=== PATIENT | female | born 1970 ===

== ENCOUNTER 2020-04-10 16:13 | Outpatient (REF) | payer MEDICARE, MEDICAID, SELFPAY ==
--- NOTE | 2020-04-10 | CT_ITS ---
EXAMINATION: CT HEAD WITHOUT CONTRAST CLINICAL INFORMATION: Calvarial lesion. COMPARISON: CT scan of the head 04/21/2007. TECHNIQUE: Contiguous axial imaging was performed from the skull base to vertex without intravenous administration of contrast. This CT examination was performed using dose optimization techniques as appropriate, variously including the following: *Automated exposure control *Adjustment of mA and/or kV according to patient size (this includes techniques or standardized protocols for targeted exams where dose is matched to indication/reason for exam; i.e. extremities or head) *Use of iterative reconstruction technique DLP: 767 mGy-cm FINDINGS: There is a externally convex thickening of the left parietal bone near the vertex. Specifically there is a crescent-shaped heterogeneous osseous matrix visualized between the diploic space and the outer table of the left parietal bone. The size of this finding has remained stable. The calvarium and skull base are otherwise normal. No acute intracranial hemorrhage or abnormal extra-axial collection. No intracranial mass effect or midline shift. Lateral and third ventricles are normal. No hydrocephalus. Rosas-white matter differentiation is grossly preserved and there is no evidence of acute territorial infarct. No mastoid middle ear effusion. No intracranial stenosis. There is however an osteoma visualized within one of the left anterior ethmoid air cells. CT/CT head/brain wo con IMPRESSION: Stable size and appearance of focal thickening of the left parietal bone causing and externally convex contour. 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 Otherwise normal examination.
== END 2020-04-10 16:14 | disposition home or self-care (01) ==
LOC: HO.CT 16:13
PROVIDERS: PCP Nurse Practitioner Family; Visit Provider Nurse Practitioner Family
DX: D16.4 Benign neoplasm of bones of skull and face (principal)
CPT/HCPCS: 70450

== ENCOUNTER → 2020-06-05 12:46 | Outpatient (BNVA) | payer MEDICARE, MEDICAID, SELFPAY | PROVIDERS: PCP Nurse Practitioner Family; Visit Provider Internal Medicine | DX: Z13.89 Encounter for screening for other disorder (principal) | CPT/HCPCS: Q3014 ==

== ENCOUNTER 2020-06-09 11:35 | Emergency (ER) | payer MEDICARE, MEDICAID, SELFPAY ==
[2020-06-09 11:57] VITALS: BP 116/70; PULSE 100; RESP 18; TEMP 37; O2SAT 98; BMI 45.1
--- NOTE | 2020-06-09 12:43 | ED.FALL ---
HPI - Fall General Chief Complaint: Fall Stated Complaint: fell back and neck pain Time Seen by Provider: 06/09/20 12:43 Source: patient Mode of arrival: ambulatory History of Present Illness HPI Narrative: 49-year-old female with a past medical history hypothyroid, vitamin-D deficiency presenting to ED complaining of neck, shoulder, and back pain s/p mechanical fall on Tuesday. Reports walked in house with wet snowy boots and slipped backwards, denies head trauma or LOC. reports pain radiates from low back to head and down left arm with associated left arm tingling. Denies symptoms prior to fall including CP/SOB/lightheadedness/dizziness. Denies vision changes, weakness, urinary incontinence/retention, abdominal pain, nausea/vomiting MD complaint: fall Onset (ago): day(s) Fall from: standing Related Data Home Medications Medication Instructions Recorded Confirmed albuterol sulfate 90 mcg/actuation 0 mcg INHALATION 06/05/20 06/05/20 aerosol inhaler budesonide 90 mcg/actuation breath 0 inh INHALATION 06/05/20 06/05/20 activated powder inhaler bupropion HCl 150 mg 24 hr tablet, 150 mg PO QAM 06/05/20 06/05/20 extended release citalopram 20 mg tablet 20 mg PO DAILY 06/05/20 06/05/20 ipratropium bromide 17 2 puff PO QID 06/05/20 06/05/20 mcg/actuation HFA aerosol inhaler loratadine 10 mg tablet 10 mg PO DAILY 06/05/20 06/05/20 lorazepam 0.5 mg tablet 0.5 mg PO BID PRN 06/05/20 06/05/20 omeprazole 40 mg capsule,delayed 40 mg PO DAILY 06/05/20 06/05/20 release sucralfate 1 gram tablet 1 g PO QID 06/05/20 06/05/20 Previous Rx's Medication Instructions Recorded levothyroxine 75 mcg tablet 75 mcg PO QAM 30 Days #30 tab 06/05/20 acetaminophen [Tylenol Extra 500 mg PO Q6H PRN #20 tab 06/09/20 Strength] cyclobenzaprine 5 mg PO Q8H PRN 5 Days #14 tab 06/09/20 lidocaine [Lidoderm] 1 patch TOPICAL DAILY PRN #30 ea 12/21/20 MDD remove after 12 hours Allergies Allergy/AdvReac Type Severity Reaction Status Date / Time calcium carbonate [From Tums] Allergy Unknown Unknown Verified 06/05/20 15:37 cinnamon [CINNAMON] Allergy Unknown THROAT Verified 06/05/20 15:37 SWELLING fluoxetine [From PROZAC] Allergy Unknown UNKNOWN Verified 06/05/20 15:37 cinnamon Allergy Unknown Unknown Uncoded 06/05/20 15:37 Review of Systems Review of Systems: Constitutional: No Weight loss, No Fever, No Chills, No Night Sweats, No Fatigue, No Malaise Eyes: No Eye Pain, No Vision Changes Cardiovascular: No Chest Pain, No SOB Respiratory: No Cough, No Sputum, No Wheezing, No Smoke Exposure, No Dyspnea Gastrointestinal: No Nausea, No Vomiting, No Abdominal pain Genitourinary: No Urinary Incontinence, no retention Musculoskeletal: + joint pain, + Myalgias, No Joint Swelling Skin: No Skin Lesions, No rash Neuro: No Weakness, No Numbness, + left arm tingling, No Loss of Consciousness, No Dizziness, + Headache Yes all other systems are reviewed and are negative Neurologic: Denies Sensory deficit (Neuro) PENDING SALE TO [facility] Past Medical History Medical History (Updated 06/09/20 @ 12:44 by NADIR Ray) Hypothyroidism Multinodular thyroid Vitamin D deficiency Surgical History (Updated 06/05/20 @ 12:53 by Zamzam Hill MA) Hx of bilateral breast reduction surgery Hx of endoscopy Hx of tooth extraction Family History Family History (Updated 06/05/20 @ 12:55 by Zamzam Hill MA) Father Prostate cancer Hypothyroidism Mother Kidney disease Stroke Social History Social History (Updated 06/05/20 @ 12:51 by Zamzam Hill MA) Smoking Status: Never smoker Advance Directives: No Advance Directives Information Provided: No Physical Exam Vital Signs: Vital Signs: Last Vital Signs Temp 98.6 F 06/09/20 11:57 Pulse 100 06/09/20 11:57 Resp 18 06/09/20 11:57 BP 116/70 06/09/20 11:57 Pulse Ox 98 06/09/20 11:57 Body Mass Index 45.1 Const: General: cooperative and healthy appearing Orientation/consciousness: patient oriented x3 Limitations: no limitations HENMT: Head: Yes normal to inspection Ears: hearing grossly normal bilaterally General nose exam: Normal external nose present Face and sinus: Yes normal facial exam Mouth: Normal oral and palatal mucosa present Throat: Yes posterior oropharynx normal and Yes uvula midline Eyes: General: appearance normal, both eyes and all related structures Pupils: Equal, round and reactive pupils present EOM: EOMs intact bilaterally Neck: Other: No midline cervical spinous tenderness. + left-sided trapezius muscle tenderness Neck: Yes normal visual inspection and Yes no meningeal signs Chest: Chest palpation & inspection: normal inspection of the chest Resp: Effort & Inspection: normal respiratory effort Auscultation: clear to auscultation bilaterally and no wheezes Cardio: Rate: regular rate Heart sounds: S1 normal heart sound present and S2 normal heart sound present GI: Inspection: Yes normal to inspection Palpation (GI): Soft to palpation, nontender, no guarding and not rigid Back/Spine/Pelvis: Other: No midline thoracic/lumbar spinous tenderness. Mild bilateral MSK lumbar tenderness Skin: Rashes: no rashes Wounds: no wounds Neuro: Other: No saddle anesthesia General: patient oriented x3, gait normal, tone normal, moves all extremities, no meningeal signs, no focal motor deficits and CN's II-XI intact bilaterally Cranial nerves: Yes Equal, round and reactive pupils present Gait exam (Neuro): Normal gait present Motor exam (neuro): 5/5 motor strength present throughout Sensory Exam: No Sensory deficit (Neuro) Coordination: [id number] test normal Extrem: General: Yes normal to inspection MDM - Fall MDM Narrative Medical decision making narrative: On exam VSS, NAD/well-appearing, no midline spinous tenderness, no saddle anesthesia or red flag symptoms. Likely MSK pain. Low concern for fracture/dislocation or ICH Discharge Plan Discharge Clinical Impression: Neck pain Back pain Qualifiers: Back pain location: back pain in unspecified location Chronicity: acute Back pain laterality: unspecified Qualified Code(s): M54.9 - Dorsalgia, unspecified Patient Disposition: Home, Self-Care Instructions: Fall Prevention (ED) Additional Instructions: Your pain is likely musculoskeletal Flexeril is a muscle relaxer, take at night as it makes you drowsy, do not drive, drink alcohol, or operate machinery while taking it Naproxen as an anti-inflammatory / pain medication, take with food Lidoderm patches are numbing patches, apply to painful area In addition take Tylenol at home If symptoms persist or worsen, pain becomes unbearable, you developed urinary retention or incontinence, or weakness return to the ED Prescriptions: New acetaminophen [Tylenol Extra Strength] 500 mg tablet 500 mg PO Q6H PRN (Reason: pain or fever) Qty: 20 RF: 0 lidocaine [Lidoderm] 5 % adhesive patch,medicated 1 patch topical DAILY MDD remove after 12 hours PRN (Reason: pain) Qty: 30 RF: 0 cyclobenzaprine 5 mg tablet 5 mg PO Q8H PRN (Reason: pain (scale score 7-10)) 5 Days Qty: 14 RF: 0 No Action citalopram 20 mg tablet 20 mg PO DAILY RF: 0 bupropion HCl 150 mg tablet extended release 24 hr 150 mg PO QAM RF: 0 lorazepam 0.5 mg tablet 0.5 mg PO BID PRNRF: 0 omeprazole 40 mg capsule,delayed release(DR/EC) 40 mg PO DAILY RF: 0 loratadine 10 mg tablet 10 mg PO DAILY RF: 0 sucralfate 1 gram tablet 1 g PO QID RF: 0 Atrovent HFA 17 mcg/actuation HFA aerosol inhaler 2 puff PO QID RF: 0 Pulmicort Flexhaler 90 mcg/actuation aerosol powdr breath activated 0 inh inhalation RF: 0 albuterol sulfate 90 mcg/actuation HFA aerosol inhaler 0 mcg inhalation RF: 0 levothyroxine 75 mcg tablet 75 mcg PO QAM 30 Days Qty: 30 RF: 0 Referrals: Selma Johns NP [Primary Care Provider] - 2 days Interventions: ED Discharge Assessment Last Done: 06/09/20 13:03 Discharge Date/Time: 06/09/20 13:04
== END 2020-06-09 13:04 | disposition home or self-care (01) ==
PROVIDERS: Emergency Provider Emergency Medicine; PCP Nurse Practitioner Family
DX: M54.9 Dorsalgia, unspecified (principal); Z91.81 History of falling
CPT/HCPCS: 99283

== ENCOUNTER 2020-07-07 09:16 | Outpatient (REF) | payer OTHER, SELFPAY ==
--- NOTE | 2020-07-07 09:41 | XR_ITS ---
EXAMINATION: BILATERAL HAND X-RAY CLINICAL INFORMATION: Bilateral hand pain COMPARISON: None TECHNIQUE: 3 views each hand FINDINGS: Bone alignment is normal. No fracture or dislocation is seen. Joint spaces are normal. Soft tissues are normal. XR/XR hand LT min 3V IMPRESSION: Normal hands. EXAMINATION: Left shoulder x-ray CLINICAL INFORMATION: Joint pain COMPARISON: None. TECHNIQUE: 4 views of the left shoulder FINDINGS: Bone alignment is normal. No fracture or dislocation is seen. The joint spaces are normal. There are several small round soft tissue tissue calcifications adjacent to the humeral head probably representing calcific bursitis. IMPRESSION: Soft tissue calcifications probably representing calcific bursitis. Otherwise unremarkable exam.
--- NOTE | 2020-07-07 09:41 | XR_ITS ---
EXAMINATION: BILATERAL HAND X-RAY CLINICAL INFORMATION: Bilateral hand pain COMPARISON: None TECHNIQUE: 3 views each hand FINDINGS: Bone alignment is normal. No fracture or dislocation is seen. Joint spaces are normal. Soft tissues are normal. XR/XR shoulder LT min 2V IMPRESSION: Normal hands. EXAMINATION: Left shoulder x-ray CLINICAL INFORMATION: Joint pain COMPARISON: None. TECHNIQUE: 4 views of the left shoulder FINDINGS: Bone alignment is normal. No fracture or dislocation is seen. The joint spaces are normal. There are several small round soft tissue tissue calcifications adjacent to the humeral head probably representing calcific bursitis. IMPRESSION: Soft tissue calcifications probably representing calcific bursitis. Otherwise unremarkable exam.
--- NOTE | 2020-07-07 09:41 | XR_ITS ---
EXAMINATION: BILATERAL HAND X-RAY CLINICAL INFORMATION: Bilateral hand pain COMPARISON: None TECHNIQUE: 3 views each hand FINDINGS: Bone alignment is normal. No fracture or dislocation is seen. Joint spaces are normal. Soft tissues are normal. XR/XR hand RT min 3V IMPRESSION: Normal hands. EXAMINATION: Left shoulder x-ray CLINICAL INFORMATION: Joint pain COMPARISON: None. TECHNIQUE: 4 views of the left shoulder FINDINGS: Bone alignment is normal. No fracture or dislocation is seen. The joint spaces are normal. There are several small round soft tissue tissue calcifications adjacent to the humeral head probably representing calcific bursitis. IMPRESSION: Soft tissue calcifications probably representing calcific bursitis. Otherwise unremarkable exam.
[2020-07-07 10:45] LABS: Free T4 (Free Thyroxine) 1.21 ng/dL (0.71-1.85); Thyroid Stimulating Hormone 2.17 uIU/mL (0.32-4.0); Vitamin D 25-OH Total 27.1 ng/mL (>30)
== END 2020-07-07 09:17 | disposition home or self-care (01) ==
LOC: HO.LAB 09:16
PROVIDERS: PCP Nurse Practitioner Family; Visit Provider Internal Medicine
DX: E55.9 Vitamin D deficiency, unspecified (principal); E03.9 Hypothyroidism, unspecified; E04.2 Nontoxic multinodular goiter; M25.512 Pain in left shoulder; M25.541 Pain in joints of right hand; M25.542 Pain in joints of left hand
CPT/HCPCS: 36415; 73030; 73130; 82306; 84439; 84443

== ENCOUNTER 2020-07-12 09:02 | Outpatient (REF) | payer OTHER, SELFPAY ==
--- NOTE | 2020-07-12 | MM_ITS ---
EXAMINATION: MM SCREENING DIGITAL BREAST TOMOSYNTHESIS, BILATERAL CLINICAL INFORMATION: Screening. Asymptomatic. The lifetime risk of breast cancer based on the Tyrer-Cuzick Model is 12%. COMPARISON: Mammography: 03/30/2019, 03/29/2018 TECHNIQUE: Digital breast tomosynthesis is performed in both the craniocaudal and mediolateral oblique views along with computer-aided detection (CAD). Synthesized 2D images are generated from the tomosynthesis. FINDINGS: There are scattered areas of fibroglandular density (ACR BI-RADS breast composition Category b). There are scattered fibronodular asymmetries in each breast similar to prior studies. There is no interval mass or architectural abnormality. No abnormal calcifications. The axilla and skin contours are unremarkable. MM/MM tomosynthesis screening BI IMPRESSION: No significant changes from prior exams. ASSESSMENT: BI-RADS 2: Benign RECOMMENDATION: Routine annual mammography screening. This patient's information was entered into a reminder system with a target due date for their next mammogram.
== END 2020-07-12 09:03 | disposition home or self-care (01) ==
LOC: HO.MAMMO 09:02
PROVIDERS: PCP Nurse Practitioner Family; Visit Provider Nurse Practitioner Family
DX: Z12.31 Encounter for screening mammogram for malignant neoplasm of breast (principal)
CPT/HCPCS: 77063; 77067

== ENCOUNTER → 2020-07-28 07:49 | Outpatient (BNVA) | payer OTHER, SELFPAY | PROVIDERS: PCP Nurse Practitioner Family; Visit Provider Internal Medicine | DX: Z76.89 Persons encountering health services in other specified circumstances (principal) | CPT/HCPCS: Q3014 ==

== ENCOUNTER 2020-09-23 18:39 | Emergency (ER) | payer OTHER, SELFPAY ==
--- NOTE | ~2020-09-23 | XR_ITS ---
EXAMINATION: PORTABLE CHEST 1 VIEW CLINICAL INFORMATION: chest pain . COMPARISON: 11/30/2018. TECHNIQUE: Portable frontal view of the chest was obtained. FINDINGS: The lungs are well expanded. No focal infiltrate, effusion, edema, or pneumothorax. Cardiac and mediastinal silhouettes are within normal limits for technique. No acute bony abnormality seen. Degenerative changes in the spine and shoulders. 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 XR/XR chest 1V IMPRESSION: No evidence of acute disease.
[2020-09-23 18:50] VITALS: BP 142/79; BP 185/97; PULSE 108; PULSE 135; RESP 18; TEMP 36.8; O2SAT 98; BMI 46.5
--- NOTE | 2020-09-23 19:01 | ED_ITS ---
HPI - Chest Pain General Chief Complaint: Chest Pain Stated Complaint: LT SIDED CHEST PRESSURE Time Seen by Provider: 09/23/20 20:03 Source: patient Mode of arrival: ambulatory Limitations: no limitations History of Present Illness HPI narrative: Patient presents to ED for left-sided chest pressure and acid burning sensation. Patient has had this before and informed that she has anxiety. Patient denies any drug use, shortness of breath, swelling of lower extremities, or chest pain on inspiration. Patient denies any coughing, fever, chills. Patient presently no longer have chest pain during ED. Related Data Home Medications Medication Instructions Recorded Confirmed albuterol sulfate 90 mcg/actuation 0 mcg INHALATION 06/05/20 07/28/20 aerosol inhaler budesonide 90 mcg/actuation breath 0 inh INHALATION 06/05/20 07/28/20 activated powder inhaler bupropion HCl 150 mg 24 hr tablet, 150 mg PO QAM 06/05/20 07/28/20 extended release ipratropium bromide 17 2 puff PO QID 06/05/20 07/28/20 mcg/actuation HFA aerosol inhaler loratadine 10 mg tablet 10 mg PO DAILY 06/05/20 07/28/20 lorazepam 0.5 mg tablet 0.5 mg PO BID PRN 06/05/20 07/28/20 omeprazole 40 mg capsule,delayed 40 mg PO DAILY 06/05/20 07/28/20 release sucralfate 1 gram tablet 1 g PO QID 06/05/20 07/28/20 citalopram 10 mg tablet 10 mg PO DAILY 07/28/20 07/28/20 citalopram 20 mg tablet 30 mg PO DAILY tab 07/28/20 07/28/20 Previous Rx's Medication Instructions Recorded acetaminophen [Tylenol Extra 500 mg PO Q6H PRN #20 tab 06/09/20 Strength] cyclobenzaprine 5 mg PO Q8H PRN 5 Days #14 tab 06/09/20 lidocaine [Lidoderm] 1 patch TOPICAL DAILY PRN #30 ea 06/09/20 MDD remove after 12 hours cholecalciferol (vitamin D3) 50 50 mcg PO DAILY 30 Days #30 cap 07/28/20 mcg (2,000 unit) capsule levothyroxine 75 mcg tablet 75 mcg PO QAM #30 tab 07/28/20 Allergies Allergy/AdvReac Type Severity Reaction Status Date / Time calcium carbonate [From Tums] Allergy Unknown Unknown Verified 09/23/20 18:56 cinnamon [CINNAMON] Allergy Unknown THROAT Verified 09/23/20 18:56 SWELLING fluoxetine [From PROZAC] Allergy Unknown UNKNOWN Verified 09/23/20 18:56 cinnamon Allergy Unknown Unknown Uncoded 07/28/20 08:02 Review of Systems Review of Systems: Yes all other systems are reviewed and are negative Constitutional: Constitutional: Reports as per HPI and Reports no additional constitutional complaints Eyes: Eyes: Reports as per HPI and Reports no additional eye complaints ENT: Reports system reviewed and no additional complaints, except as documented and Reports as per HPI Cardiovascular: Cardiovascular: Reports as per HPI and Reports no additional cardiovascular complaints Respiratory: Respiratory: Reports as per HPI and Reports no additional respiratory complaints Gastrointestinal: Gastrointestinal: Reports as per HPI and Reports no additional gastrointestinal complaints Musculoskeletal: Musculoskeletal: Reports no additional musculoskeletal complaints and Reports as per HPI Neurologic: Reports system reviewed and no additional complaints, except as documented and Reports as per HPI Psychiatric: Psychiatric: Reports no additional psychiatric complaints and Reports as per HPI PMFSH Past Medical History Medical History Hypothyroidism Multinodular thyroid Vitamin D deficiency Surgical History Hx of bilateral breast reduction surgery Hx of endoscopy Hx of tooth extraction Family History Family History Father Prostate cancer Hypothyroidism Mother Kidney disease Stroke Social History Social History Smoking Status: Never smoker Use of substances other than those prescribed or required for medical reasons: No Advance Directives: No Advance Directives Information Provided: Yes Physical Exam Vital Signs: Vital Signs: Last Vital Signs Temp 98.2 F 09/23/20 21:59 Pulse 85 09/23/20 21:59 Resp 18 09/23/20 21:59 BP 107/66 09/23/20 21:59 Pulse Ox 97 09/23/20 21:59 Body Mass Index 46.5 Const: General: cooperative, healthy appearing, comfortable, no acute distr ess, well developed, alert, awake and Physically active Orientation/consciousness: patient oriented x3 HENMT: Head: Yes normal to inspection, Yes No palpable skull fracture present, Yes normocephalic, Yes atraumatic, No Fontenot's sign, No contusion, No cranial bruits, No hematoma, No laceration, No occipital foramen tenderness, No palpable skull fracture, No raccoon eyes, No scalp lesion, No scalp tenderness, No Temporal artery tenderness present and No periorbital ecchymosis Eyes: General: appearance normal, both eyes and all related structures Neck: Neck: Yes normal visual inspection, Yes full ROM, Yes no lymphadenopathy, Yes no meningeal signs, Yes trachea midline, Yes supple and No tender Chest: Other: Negative for rash Chest palpation & inspection: normal inspection of the chest and normal palpation of entire chest wall Resp: Effort & Inspection: normal respiratory effort and able to speak in complete sentences Auscultation: clear to auscultation bilaterally Cardio: Jugular venous distension: no JVD Heart sounds: S1 normal heart sound present and S2 normal heart sound present GI: Inspection: Yes normal to inspection and No abdominal wall ecchymosis Palpation (GI): Soft to palpation, not firm, nontender, no guarding and not rigid : General: No CVA tenderness and Yes no CVA tenderness Back/Spine/Pelvis: Back: no CVA tenderness, No CVA tenderness and No back tenderness Skin: General skin exam: no rashes or lesions noted and elasticity normal Neuro: General: patient oriented x3, no meningeal signs and CN's II-XI intact bilaterally Cranial nerves: Yes CN's II-XII intact bilaterally Extrem: Other: Lower extremities negative for swelling, pitting edema, calf tenderness General: Yes normal to inspection and Yes full ROM Psych: Appearance: grossly normal, well kempt and not disheveled Course Course Course Narrative: Patient will have EKG and clinical evaluation. Reevaluation(s) Reevaluation #1: Patient's troponins are negative. Patient's D-dimer negative. Perc score 1. Chest x-ray normal. COVID swab negative. Patient not in any distress. Patient inedform to follow-up with her PCP for chest pain or further evaluation. Presently patient is not having OH or PE. Heart Score 2 MDM - Chest Pain MDM Narrative Medical decision making narrative: Chest pain Lab Data Result diagrams: 09/23/20 19:28 09/23/20 20:14 Labs: Lab Results 09/23/20 09/23/20 09/23/20 Range/Units 19:28 19:28 19:28 WBC 12.6 H (4.8-10.8) X10*3/uL RBC 4.62 (4.20-5.50) X10*6/uL Hgb 12.8 (12.0-16.0) g/dl Hct 39.8 (37-47) % MCV 86.1 (80-98) fL MCH 27.7 (27.0-33.0) pg MCHC 32.2 (31.0-35.0) g/dl RDW 13.0 (11.0-16.0) % Plt Count 301 (160-400) X10*3/uL MPV 10.5 (9.4-12.3) fL Immature Gran % (Auto) 0.6 H (0.0-0.4) % Neut % (Auto) 86.8 H (45-73) % Lymph % (Auto) 9.5 L (20-40) % [place] % (Auto) 2.9 (2-11) % Eos % (Auto) 0.0 (0-4) % Baso % (Auto) 0.2 (0-2) % Lymph # (Auto) 1.2 (1.2-4.9) X10*3/uL [place] # (Auto) 0.4 (0.1-1.2) X10*3/uL Eos # (Auto) 0.0 (0.0-0.4) X10*3/uL Baso # (Auto) 0.0 (0.0-0.2) X10*3/uL Abs Immat Gran (auto) 0.07 H (0.00-0.03) X10*3/uL Absolute Neuts (auto) 10.9 H (2.0-8.3) X10*3/uL Absolute Nucleated RBC 0.020 H (0.0-0.012) X10*3/uL Nucleated RBC % (auto) 0.2 (0.0-0.2) /100WBC Smear Tech's Comments VERIFIED PT (10.8-13.0) SEC INR (0.9-1.1) APTT (24.1-38.0) SEC D-Dimer NG/ML Sodium (135-145) mmol/L Potassium (3.3-5.1) mmol/L Chloride (96-108) mmol/L Carbon Dioxide (22-29) mmol/L Anion Gap (12-20) BUN (9-16) mg/dL Creatinine (0.5-1.4) mg/dL Estim Creat Clear Calc Estimated GFR Random Glucose (60-115) mg/dL Calcium (8.4-10.2) mg/dL Total Bilirubin (0.0-1.0) mg/dL AST (5-31) U/L ALT (0-31) U/L Alkaline Phosphatase (39-117) U/L Troponin I High Sens < 3.5 (<3.5-17.0) ng/L Total Protein (6.5-8.0) g/dL Albumin (3.5-5.0) g/dL Beta HCG, Quant mIU/mL Urine Color Urine Appearance Urine pH (5.0-8.0) Ur Specific [place] (1.005-1.025) Urine Protein (NEG-TRACE) MG/DL Urine Glucose (UA) (NEG) MG/DL Urine Ketones (NEG) MG/DL Urine Blood (NEG) Urine Nitrite (NEG) Ur Leukocyte Esterase (NEG) Urine RBC (0) /HPF Urine WBC (0-4) /HPF Ur Squamous Epith Cells /LPF Urine Bacteria /LPF COVID-19 (PADMINI) Negative (Negative) COVID-19 Clin Com See Note 09/23/20 09/23/20 09/23/20 Range/Units 19:38 20:14 20:14 WBC (4.8-10.8) X10*3/uL RBC (4.20-5.50) X10*6/uL Hgb (12.0-16.0) g/dl Hct (37-47) % MCV (80-98) fL MCH (27.0-33.0) pg MCHC (31.0-35.0) g/dl RDW (11.0-16.0) % Plt Count (160-400) X10*3/uL MPV (9.4-12.3) fL Immature Gran % (Auto) (0.0-0.4) % Neut % (Auto) (45-73) % Lymph % (Auto) (20-40) % [place] % (Auto) (2-11) % Eos % (Auto) (0-4) % Baso % (Auto) (0-2) % Lymph # (Auto) (1.2-4.9) X10*3/uL [place] # (Auto) (0.1-1.2) X10*3/uL Eos # (Auto) (0.0-0.4) X10*3/uL Baso # (Auto) (0.0-0.2) X10*3/uL Abs Immat Gran (auto) (0.00-0.03) X10*3/uL Absolute Neuts (auto) (2.0-8.3) X10*3/uL Absolute Nucleated RBC (0.0-0.012) X10*3/uL Nucleated RBC % (auto) (0.0-0.2) /100WBC Smear Tech's Comments PT 13.0 (10.8-13.0) SEC INR 1.1 (0.9-1.1) APTT 30.6 (24.1-38.0) SEC D-Dimer < 200 NG/ML Sodium 136 (135-145) mmol/L Potassium 4.9 (3.3-5.1) mmol/L Chloride 100 (96-108) mmol/L Carbon Dioxide 28 (22-29) mmol/L Anion Gap 13 (12-20) BUN 20 H (9-16) mg/dL Creatinine 0.86 (0.5-1.4) mg/dL Estim Creat Clear Calc 92.6 Estimated GFR > 60 Random Glucose 146 H (60-115) mg/dL Calcium 9.1 (8.4-10.2) mg/dL Total Bilirubin 0.4 (0.0-1.0) mg/dL AST 14 (5-31) U/L ALT 16 (0-31) U/L Alkaline Phosphatase 82 (39-117) U/L Troponin I High Sens (<3.5-17.0) ng/L Total Protein 7.5 (6.5-8.0) g/dL Albumin 3.9 (3.5-5.0) g/dL Beta HCG, Quant < 2 mIU/mL Urine Color YELLOW Urine Appearance CLEAR Urine pH 5.5 (5.0-8.0) Ur Specific [place] 1.015 (1.005-1.025) Urine Protein NEG (NEG-TRACE) MG/DL Urine Glucose (UA) NEG (NEG) MG/DL Urine Ketones NEG (NEG) MG/DL Urine Blood 2+ H (NEG) Urine Nitrite NEG (NEG) Ur Leukocyte Esterase NEG (NEG) Urine RBC 1-4 (0) /HPF Urine WBC 0-2 (0-4) /HPF Ur Squamous Epith Cells 1+ /LPF Urine Bacteria 1+ /LPF COVID-19 (PADMINI) (Negative) COVID-19 Clin Com 09/23/20 Range/Units 23:36 WBC (4.8-10.8) X10*3/uL RBC (4.20-5.50) X10*6/uL Hgb (12.0-16.0) g/dl Hct (37-47) % MCV (80-98) fL MCH (27.0-33.0) pg MCHC (31.0-35.0) g/dl RDW (11.0-16.0) % Plt Count (160-400) X10*3/uL MPV (9.4-12.3) fL Immature Gran % (Auto) (0.0-0.4) % Neut % (Auto) (45-73) % Lymph % (Auto) (20-40) % [place] % (Auto) (2-11) % Eos % (Auto) (0-4) % Baso % (Auto) (0-2) % Lymph # (Auto) (1.2-4.9) X10*3/uL [place] # (Auto) (0.1-1.2) X10*3/uL Eos # (Auto) (0.0-0.4) X10*3/uL Baso # (Auto) (0.0-0.2) X10*3/uL Abs Immat Gran (auto) (0.00-0.03) X10*3/uL Absolute Neuts (auto) (2.0-8.3) X10*3/uL Absolute Nucleated RBC (0.0-0.012) X10*3/uL Nucleated RBC % (auto) (0.0-0.2) /100WBC Smear Tech's Comments PT (10.8-13.0) SEC INR (0.9-1.1) APTT (24.1-38.0) SEC D-Dimer NG/ML Sodium (135-145) mmol/L Potassium (3.3-5.1) mmol/L Chloride (96-108) mmol/L Carbon Dioxide (22-29) mmol/L Anion Gap (12-20) BUN (9-16) mg/dL Creatinine (0.5-1.4) mg/dL Estim Creat Clear Calc Estimated GFR Random Glucose (60-115) mg/dL Calcium (8.4-10.2) mg/dL Total Bilirubin (0.0-1.0) mg/dL AST (5-31) U/L ALT (0-31) U/L Alkaline Phosphatase (39-117) U/L Troponin I High Sens < 3.5 (<3.5-17.0) ng/L Total Protein (6.5-8.0) g/dL Albumin (3.5-5.0) g/dL Beta HCG, Quant mIU/mL Urine Color Urine Appearance Urine pH (5.0-8.0) Ur Specific [place] (1.005-1.025) Urine Protein (NEG-TRACE) MG/DL Urine Glucose (UA) (NEG) MG/DL Urine Ketones (NEG) MG/DL Urine Blood (NEG) Urine Nitrite (NEG) Ur Leukocyte Esterase (NEG) Urine RBC (0) /HPF Urine WBC (0-4) /HPF Ur Squamous Epith Cells /LPF Urine Bacteria /LPF COVID-19 (PADMINI) (Negative) COVID-19 Clin Com ECG Data ECG #1: Interpretation: Sinus tachycardia. Ventricular rate 112. Appearance of 130. QRS 78. QTC 453. Negative STEMI Discharge Plan Discharge Clinical Impression: Atypical chest pain Patient Disposition: Home, Self-Care Instructions: Chest Pain (ED) Additional Instructions: Return to the ED immediately for worsening chest pain, shortness of breath, swelling of lower extremities, coughing up blood, fever, chills, any other concerning symptoms. Troponins were negative. D-dimer negative. COVID swab came back negative. Chest x-ray negative for pneumonia. EKG negative for STEMI. Please follow-up with PCP Prescriptions: No Action acetaminophen [Tylenol Extra Strength] 500 mg tablet 500 mg PO Q6H PRN (Reason: pain or fever) Qty: 20 RF: 0 lidocaine [Lidoderm] 5 % adhesive patch,medicated 1 patch topical DAILY MDD remove after 12 hours PRN (Reason: pain) Qty: 30 RF: 0 cyclobenzaprine 5 mg tablet 5 mg PO Q8H PRN (Reason: pain (scale score 7-10)) 5 Days Qty: 14 RF: 0 citalopram 10 mg tablet 10 mg PO DAILY RF: 0 levothyroxine [Euthyrox] 75 mcg tablet 75 mcg PO QAM Qty: 30 RF: 11 cholecalciferol (vitamin D3) 50 mcg (2,000 unit) capsule 50 mcg PO DAILY 30 Days Qty: 30 RF: 11 bupropion HCl 150 mg tablet extended release 24 hr 150 mg PO QAM RF: 0 lorazepam 0.5 mg tablet 0.5 mg PO BID PRNRF: 0 omeprazole 40 mg capsule,delayed release(DR/EC) 40 mg PO DAILY RF: 0 loratadine 10 mg tablet 10 mg PO DAILY RF: 0 sucralfate 1 gram tablet 1 g PO QID RF: 0 Atrovent HFA 17 mcg/actuation HFA aerosol inhaler 2 puff PO QID RF: 0 Pulmicort Flexhaler 90 mcg/actuation aerosol powdr breath activated 0 inh inhalation RF: 0 albuterol sulfate 90 mcg/actuation HFA aerosol inhaler 0 mcg inhalation RF: 0 citalopram 20 mg tablet 30 mg PO DAILY RF: 0 Print Language: [place]
--- NOTE | 2020-09-23 19:05 | ECG_ITS ---
Test Reason : CHEST PRESSURE Blood Pressure : / mmHG Vent. Rate : 112 BPM Atrial Rate : 112 BPM P-R Int : 130 ms QRS Dur : 078 ms QT Int : 332 ms P-R-T Axes : 016 013 -39 degrees QTc Int : 453 ms Sinus tachycardia Cannot rule out Anterior infarct , age undetermined T wave abnormality, consider inferior ischemia Abnormal ECG When compared with ECG of 07-MAR-2020 10:47, Vent. rate has increased BY 38 BPM T wave inversion now evident in Inferior leads Nonspecific T wave abnormality now evident in Lateral leads Referred By: Tiburcio Liz Electronically Signed By:RASHEEDA LUNDY MD
[2020-09-23 19:39] LABS: Basophils Percent Auto 0.2 % (0-2); Imm Gran Pct Auto 0.6 % (0.0-0.4); MANUAL DIFF FLAG SCAN; Mean Corpuscular Hemoglobin 27.7 pg (27.0-33.0); Mean Platelet Volume 10.5 fL (9.4-12.3); PLT CLUMP 1; SCAN SMEAR FLAG 1
[2020-09-23 19:41] LABS: Hematocrit 39.8 % (37-47); Hemoglobin 12.8 g/dl (12.0-16.0); Imm Gran Abs Auto 0.07 X10*3/uL (0.00-0.03); Lymphocytes Absolute Auto 1.2 X10*3/uL (1.2-4.9); Lymphocytes Percent Auto 9.5 % (20-40); Mean Corpuscular HGB Conc 32.2 g/dl (31.0-35.0); Mean Corpuscular Volume 86.1 fL (80-98); Monocytes Absolute Auto 0.4 X10*3/uL (0.1-1.2); Monocytes Percent Auto 2.9 % (2-11); NRBC Pct Auto 0.2 /100WBC (0.0-0.2); Neutrophils Absolute Auto 10.9 X10*3/uL (2.0-8.3); Neutrophils Percent Auto 86.8 % (45-73); Platelet Count 301 X10*3/uL (160-400); Red Blood Count 4.62 X10*6/uL (4.20-5.50); White Blood Count 12.6 X10*3/uL (4.8-10.8)
[2020-09-23] MEDS: 0.9 % Sodium Chloride 1,000 ML 999 ML IV (19:53)
[2020-09-23] MEDS: Magnesium Hydrox/Alum Hydrox 30 ML ORAL.SUSP PO (19:53)
[2020-09-23] MEDS: Lidocaine HCl Viscous 2 % 15 ML SOLUTION MUCOUS MEM (19:53)
[2020-09-23] MEDS: Famotidine/PF 20 MG/2 ML VIAL IVPUSH (19:53)
[2020-09-23 19:57] LABS: COVID-19 Test Negative (Negative)
[2020-09-23 20:00] VITALS: BP 142/79; PULSE 108; RESP 18; O2SAT 98
[2020-09-23 20:01] LABS: Appearance Urine CLEAR; Color Urine YELLOW; Glucose Urine UA NEG (NEG); Leukocyte Esterase Urine NEG (NEG); Nitrite Urine NEG (NEG); PH 5.5 (5.0-8.0); Specific Gravity - Urine 1.015 (1.005-1.025); Urine Blood 2+ (NEG); Urine Ketones NEG (NEG); Urine Protein NEG (NEG-TRACE)
[2020-09-23 20:05] LABS: SLIDE REVIEW VERIFIED
[2020-09-23 20:08] LABS: Troponin-I High Sensitivity < 3.5 ng/L (<3.5-17.0)
[2020-09-23 20:09] LABS: Bacteria Urine 1+ /LPF; Squamous Epithelial Cell Urine 1+ /LPF; WBC Urine 0-2 /HPF (0-4)
[2020-09-23 20:39] LABS: INTERNATIONAL NORM RATIO 1.1 (0.9-1.1)
[2020-09-23 20:42] LABS: Partial Thromboplastin Time 30.6 SEC (24.1-38.0)
[2020-09-23 20:45] LABS: D Dimer < 200 NG/ML
[2020-09-23 20:55] LABS: Alanine Aminotransferase 16 U/L (0-31); Albumin Level 3.9 g/dL (3.5-5.0); Alkaline Phosphatase 82 U/L (39-117); Anion Gap 13 (12-20); Aspartate Amino Transferase 14 U/L (5-31); Bilirubin Total 0.4 mg/dL (0.0-1.0); Blood Urea Nitrogen 20 mg/dL (9-16); Calcium 9.1 mg/dL (8.4-10.2); Carbon Dioxide 28 mmol/L (22-29); Chloride 100 mmol/L (96-108); Creatinine Clr Calc Pharmacy 92.6; Estimated Glomerular Filt Rate > 60; Glucose Random 146 mg/dL (60-115); Potassium 4.9 mmol/L (3.3-5.1); Sodium 136 mmol/L (135-145); Total Protein 7.5 g/dL (6.5-8.0)
[2020-09-23 21:04] LABS: HCG Quantitative < 2 mIU/mL
[2020-09-23 21:59] VITALS: BP 107/66; PULSE 85; RESP 18; TEMP 36.8; O2SAT 97
--- NOTE | 2020-09-23 22:49 | PC.NURSE ---
PATIENT'S LILLIAN GUEVARA CALLS AT THIS TIME FOR UPDATE. RN INDISPOSED AND REQUESTS CALL BACK NUMBER. LILLIAN GUEVARA () [phone]
[2020-09-23 23:36] VITALS: PULSE 84
[2020-09-24 00:07] LABS: Troponin-I High Sensitivity < 3.5 ng/L (<3.5-17.0)
== END 2020-09-24 00:41 | disposition home or self-care (01) ==
PROVIDERS: Physician Assistant; Emergency Provider Internal Medicine
DX: R07.9 Chest pain, unspecified (principal); F41.1 Generalized anxiety disorder; F43.0 Acute stress reaction; Z20.822 Contact with and (suspected) exposure to COVID-19; Z79.899 Other long term (current) drug therapy
CPT/HCPCS: 36415; 71045; 80053; 81001; 81003; 84484; 84702; 85025; 85379; 85610; 85730; 87635; 93005; 96365; 96375; 99285

== ENCOUNTER → 2020-09-24 09:42 | Outpatient (REF) | payer OTHER, SELFPAY | LOC: HO.SL 09:42 | PROVIDERS: PCP Internal Medicine; Visit Provider Internal Medicine | DX: Z13.89 Encounter for screening for other disorder (principal) ==

== ENCOUNTER → 2020-11-13 09:25 | Outpatient (REF) | payer OTHER, SELFPAY | LOC: HO.SL 09:25 | PROVIDERS: PCP Internal Medicine; Visit Provider Internal Medicine | DX: G47.33 Obstructive sleep apnea (adult) (pediatric) (principal) | CPT/HCPCS: 95806 ==

== ENCOUNTER 2021-01-26 08:39 | Outpatient (REF) | payer OTHER, SELFPAY ==
[2021-01-26 10:53] LABS: Free T4 (Free Thyroxine) 1.15 ng/dL (0.71-1.85); Thyroid Stimulating Hormone 1.35 uIU/mL (0.32-4.0); Vitamin D 25-OH Total 34.5 ng/mL (>30)
== END 2021-01-26 08:40 | disposition home or self-care (01) ==
LOC: HO.LAB 08:39
PROVIDERS: PCP Nurse Practitioner Family; Visit Provider Internal Medicine
DX: E03.9 Hypothyroidism, unspecified (principal); E04.2 Nontoxic multinodular goiter; E55.9 Vitamin D deficiency, unspecified
CPT/HCPCS: 36415; 82306; 84439; 84443; 99212

== ENCOUNTER 2021-02-06 03:55 | Emergency (ER) | payer OTHER, SELFPAY ==
--- NOTE | 2021-02-06 | ECG_ITS ---
Test Reason : SHORT OF BREATH Blood Pressure : / mmHG Vent. Rate : 095 BPM Atrial Rate : 095 BPM P-R Int : 132 ms QRS Dur : 078 ms QT Int : 372 ms P-R-T Axes : 035 004 -12 degrees QTc Int : 467 ms Normal sinus rhythm Nonspecific T wave abnormality Prolonged QT Abnormal ECG When compared with ECG of 23-SEP-2020 18:55, Heart rate has decreased Referred By: Generic ED Physician Electronically Signed By:SAYDA PANDA
--- NOTE | ~2021-02-06 | XR_ITS ---
EXAMINATION: XR CHEST CLINICAL INFORMATION: Chest pain COMPARISON: 09/23/2020 TECHNIQUE: Frontal view of the chest was obtained. FINDINGS: Cardiac leads overlie the chest. The lungs are well expanded. There is no focal consolidation, edema, or effusion. No pneumothorax. The cardiomediastinal silhouette is within normal limits. No acute osseous abnormality. Soft tissue calcification bilaterally adjacent to the humeral greater tuberosities, consistent with calcific tendinosis of the rotator cuff. XR/XR chest 1V IMPRESSION: Clear lungs.
[2021-02-06 04:06] VITALS: BP 146/93; BP 147/81; PULSE 101; PULSE 97; RESP 12; TEMP 36.9; O2SAT 97; BMI 47.0
[2021-02-06 04:22] LABS: MANUAL DIFF FLAG NO
[2021-02-06 04:24] LABS: Basophils Percent Auto 0.4 % (0-2); Eosinophils Absolute Auto 0.1 X10*3/uL (0.0-0.4); Eosinophils Percent Auto 0.5 % (0-4); Hematocrit 35.8 % (37-47); Imm Gran Abs Auto 0.04 X10*3/uL (0.00-0.03); Imm Gran Pct Auto 0.4 % (0.0-0.4); Lymphocytes Absolute Auto 2.2 X10*3/uL (1.2-4.9); Lymphocytes Percent Auto 19.9 % (20-40); Mean Corpuscular HGB Conc 33.5 g/dl (31.0-35.0); Mean Corpuscular Hemoglobin 28.4 pg (27.0-33.0); Mean Corpuscular Volume 84.8 fL (80-98); Monocytes Absolute Auto 0.9 X10*3/uL (0.1-1.2); Monocytes Percent Auto 7.8 % (2-11); Neutrophils Absolute Auto 7.8 X10*3/uL (2.0-8.3); Platelet Count 362 X10*3/uL (160-400); Red Blood Count 4.22 X10*6/uL (4.20-5.50); Red Cell Distribution Width 12.7 % (11.0-16.0); White Blood Count 10.9 X10*3/uL (4.8-10.8)
[2021-02-06 04:47] LABS: Anion Gap 13 (12-20); Blood Urea Nitrogen 13 mg/dL (9-16); Calcium 8.9 mg/dL (8.4-10.2); Carbon Dioxide 24 mmol/L (22-29); Chloride 105 mmol/L (96-108); Creatinine Clr Calc Pharmacy 88.1; Estimated Glomerular Filt Rate > 60; Glucose Random 150 mg/dL (60-115); Potassium 3.8 mmol/L (3.3-5.1); Sodium 138 mmol/L (135-145)
[2021-02-06 04:55] LABS: Troponin-I High Sensitivity < 3.5 ng/L (<3.5-17.0)
[2021-02-06 05:43] VITALS: BP 146/65; PULSE 93; RESP 15; O2SAT 98
--- NOTE | 2021-02-06 07:55 | ED.CHESTPAIN ---
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 EMS gave her 324 mg of aspirin no chest pain at this time patient took her Klonopin Ativan 0.5 mg prior to call 911 now she feels better Related Data Home Medications Medication Instructions Recorded Confirmed albuterol sulfate 90 mcg/actuation 0 mcg INHALATION 06/05/20 01/26/21 aerosol inhaler bupropion HCl 150 mg 24 hr tablet, 150 mg PO QAM 06/05/20 01/26/21 extended release loratadine 10 mg tablet 10 mg PO DAILY 06/05/20 01/26/21 lorazepam 0.5 mg tablet 0.5 mg PO BID PRN 06/05/20 01/26/21 omeprazole 40 mg capsule,delayed 40 mg PO DAILY 06/05/20 01/26/21 release sucralfate 1 gram tablet 1 g PO QID 06/05/20 01/26/21 citalopram 10 mg tablet 10 mg PO DAILY 07/28/20 01/26/21 citalopram 20 mg tablet 20 mg PO DAILY tab 01/26/21 01/26/21 Previous Rx's Medication Instructions Recorded acetaminophen 500 mg tablet 500 mg PO Q6H PRN #20 tab 06/09/20 (Tylenol Extra Strength) lidocaine 5 % topical patch 1 patch TOPICAL DAILY PRN #30 ea 06/09/20 (Lidoderm) MDD remove after 12 hours cholecalciferol (vitamin D3) 50 50 mcg PO DAILY 30 Days #30 cap 07/28/20 mcg (2,000 unit) capsule levothyroxine 75 mcg tablet 75 mcg PO QAM #30 tab 07/28/20 (Euthyrox) Allergies Allergy/AdvReac Type Severity Reaction Status Date / Time calcium carbonate [From Tums] Allergy Unknown Unknown Verified 02/06/21 04:05 cinnamon [CINNAMON] Allergy Unknown THROAT Verified 02/06/21 04:05 SWELLING fluoxetine [From PROZAC] Allergy Unknown UNKNOWN Verified 02/06/21 04:05 soy Allergy Itching Verified 02/06/21 04:05 cinnamon Allergy Unknown Unknown Uncoded 02/06/21 04:05 Review of Systems Review of Systems: Yes all other systems are reviewed and are negative [facility] Past Medical History Medical History Hypothyroidism Multinodular thyroid Vitamin D deficiency Surgical History Hx of bilateral breast reduction surgery Hx of endoscopy Hx of tooth extraction Family History Family History Father Prostate cancer Hypothyroidism Mother Kidney problem Stroke Brother Kidney problem Social History Social History Household Members: None Alcohol intake: never Patient Tobacco Use Status: Never used Tobacco Advance Directives: No Advance Directives Information Provided: No Physical Exam Vital Signs: Vital Signs: Last Vital Signs Temp 98.5 F 02/06/21 04:06 Pulse 93 02/06/21 05:43 Resp 15 02/06/21 05:43 BP 146/65 H 02/06/21 05:43 Pulse Ox 98 02/06/21 05:43 Body Mass Index 47.0 Appearance: Alert. Oriented X3. No acute distress. Anxious Eyes: No pallor or icterus ENT: Pharynx normal. Oral Mucosa moist Neck: Normal inspection. Neck supple. CVS: Normal heart rate and rhythm. Pulses normal. Respiratory: No respiratory distress. Equal air entry bilateral, no wheezing/rales/rhonchi Abdomen: Soft and nontender. Bowel sounds are present, no mass palpable, no CVA tenderness Skin: Skin warm and dry. Normal skin color. Normal skin turgor. Extremities: No lower extremity edema. No calf tenderness Neuro: Oriented X 3. MDM - Chest Pain Lab Data Attestation: I reviewed the patient's lab results. Result diagrams: 02/06/21 04:17 02/06/21 04:17 Labs: Lab Results 02/06/21 02/06/21 02/06/21 Range/Units 04:17 04:17 04:17 WBC 10.9 H (4.8-10.8) X10*3/uL RBC 4.22 (4.20-5.50) X10*6/uL Hgb 12.0 (12.0-16.0) g/dl Hct 35.8 L (37-47) % MCV 84.8 (80-98) fL MCH 28.4 (27.0-33.0) pg MCHC 33.5 (31.0-35.0) g/dl RDW 12.7 (11.0-16.0) % Plt Count 362 (160-400) X10*3/uL MPV 9.0 L (9.4-12.3) fL Immature Gran % (Auto) 0.4 (0.0-0.4) % Neut % (Auto) 71.0 (45-73) % Lymph % (Auto) 19.9 L (20-40) % [place] % (Auto) 7.8 (2-11) % Eos % (Auto) 0.5 (0-4) % Baso % (Auto) 0.4 (0-2) % Lymph # (Auto) 2.2 (1.2-4.9) X10*3/uL [place] # (Auto) 0.9 (0.1-1.2) X10*3/uL Eos # (Auto) 0.1 (0.0-0.4) X10*3/uL Baso # (Auto) 0.0 (0.0-0.2) X10*3/uL Abs Immat Gran (auto) 0.04 H (0.00-0.03) X10*3/uL Absolute Neuts (auto) 7.8 (2.0-8.3) X10*3/uL Absolute Nucleated RBC 0.000 (0.0-0.012) X10*3/uL Nucleated RBC % (auto) 0.0 (0.0-0.2) /100WBC Sodium 138 (135-145) mmol/L Potassium 3.8 D (3.3-5.1) mmol/L Chloride 105 (96-108) mmol/L Carbon Dioxide 24 (22-29) mmol/L Anion Gap 13 (12-20) BUN 13 (9-16) mg/dL Creatinine 0.90 (0.5-1.4) mg/dL Estim Creat Clear Calc 88.1 Estimated GFR > 60 Random Glucose 150 H (60-115) mg/dL Calcium 8.9 (8.4-10.2) mg/dL Troponin I High Sens < 3.5 (<3.5-17.0) ng/L ECG Data ECG #1: Attestation: I personally reviewed and interpreted this ECG as follows: Interpretation: Normal sinus rhythm heart rate 95 beats per minute normal intervals normal axis no acute ST T wave changes no acute ischemia Discharge Plan Discharge Clinical Impression: Anxiety, Atypical chest pain Patient Disposition: Home, Self-Care Instructions: Anxiety (ED) Additional Instructions: Take medication for anxiety. your chest pain is not from the heart likely from anxiety Prescriptions: No Action acetaminophen [Tylenol Extra Strength] 500 mg tablet 500 mg PO Q6H PRN (Reason: pain or fever) Qty: 20 RF: 0 lidocaine [Lidoderm] 5 % adhesive patch,medicated 1 patch topical DAILY MDD remove after 12 hours PRN (Reason: pain) Qty: 30 RF: 0 citalopram 10 mg tablet 10 mg PO DAILY RF: 0 levothyroxine [Euthyrox] 75 mcg tablet 75 mcg PO QAM Qty: 30 RF: 11 cholecalciferol (vitamin D3) 50 mcg (2,000 unit) capsule 50 mcg PO DAILY 30 Days Qty: 30 RF: 11 bupropion HCl 150 mg tablet extended release 24 hr 150 mg PO QAM RF: 0 lorazepam 0.5 mg tablet 0.5 mg PO BID PRNRF: 0 omeprazole 40 mg capsule,delayed release(DR/EC) 40 mg PO DAILY RF: 0 loratadine 10 mg tablet 10 mg PO DAILY RF: 0 sucralfate 1 gram tablet 1 g PO QID RF: 0 albuterol sulfate 90 mcg/actuation HFA aerosol inhaler 0 mcg inhalation RF: 0 citalopram 20 mg tablet 20 mg PO DAILY RF: 0
[2021-02-06 08:00] VITALS: BP 142/68; PULSE 100
== END 2021-02-06 08:36 | disposition home or self-care (01) ==
PROVIDERS: Emergency Provider Internal Medicine
DX: F41.9 Anxiety disorder, unspecified (principal); R07.89 Other chest pain; Z79.899 Other long term (current) drug therapy
CPT/HCPCS: 36415; 71045; 80048; 84484; 85025; 93005; 99284

== ENCOUNTER 2021-03-05 08:00 | Outpatient (REF) | payer OTHER, SELFPAY ==
--- NOTE | ~2021-03-05 | CT_ITS ---
EXAMINATION: CT SOFT TISSUE NECK WITHOUT CONTRAST CLINICAL INFORMATION: Swelling. Mass and lump. COMPARISON: No relevant prior imaging. TECHNIQUE: Helical imaging was performed in the axial plane with generation of coronal and sagittal reformatted images. This CT examination was performed using dose optimization techniques as appropriate, variously including the following: *Automated exposure control *Adjustment of mA and/or kV according to patient size (this includes techniques or standardized protocols for targeted exams where dose is matched to indication/reason for exam; i.e. extremities or head) *Use of iterative reconstruction technique DLP: 358 mGy-cm FINDINGS: The diagnostic accuracy of this examination is limited due to the absence of intravenous contrast. Wedge mucosal spaces are symmetric. Parapharyngeal and retromaxillary fat is preserved. T[employer] Test Worker spaces are symmetric. Parotid and submandibular glands are normal. The tongue base and epiglottis are normal. Preepiglottic fat is preserved. Glottic and subglottic airways are widely patent. The thyroid gland is normal and the remainder of the visualized visceral soft tissues are normal. There are a few somewhat prominent albeit nonspecific cervical lymph nodes that are symmetrically distributed within the neck. For instance the dominant left level II cervical lymph node measures up to 1.6 cm in maximal transaxial dimension best depicted on axial image 45 of 114 series 3. There is no mediastinal or axillary adenopathy within the [id number] of this examination. Lung apices are clear. The aortic arch apex is unremarkable. Carotid spaces are grossly normal. There is no acute osseous finding. Specifically no worrisome lytic or blastic osseous lesion. There is multilevel degenerative spondylosis of the cervical spine with at least mild canal stenosis at multiple levels. The skull base is intact. No mastoid or middle ear effusion. No active paranasal sinus disease. Limited visualization of the intracranial anatomy reveals no abnormal finding. CT/CT soft tissue neck wo con IMPRESSION: The diagnostic accuracy of this examination is limited due to the absence of intravenous contrast. There are a few somewhat prominent albeit nonspecific cervical lymph nodes. Otherwise no identifiable soft tissue mass. Continued clinical follow-up is recommended to assess the stability or resolution of these lymph nodes.
== END 2021-03-05 08:01 | disposition home or self-care (01) ==
LOC: HO.CT 08:00
PROVIDERS: PCP Family Medicine; Visit Provider Family Medicine
DX: K11.7 Disturbances of salivary secretion (principal); R22.1 Localized swelling, mass and lump, neck
CPT/HCPCS: 70490

== ENCOUNTER 2021-08-05 14:37 | Outpatient (REF) | payer OTHER, SELFPAY ==
--- NOTE | ~2021-08-05 | MM_ITS ---
EXAMINATION: MM SCREENING DIGITAL BREAST TOMOSYNTHESIS, BILATERAL CLINICAL INFORMATION: Screening. Asymptomatic. Prior history reduction mammoplasty, 2016. The lifetime risk of breast cancer based on the Tyrer-Cuzick Model is 11%. COMPARISON: Mammography: 07/12/2020, 03/30/2019, 03/29/2018 TECHNIQUE: Digital breast tomosynthesis is performed in both the craniocaudal and mediolateral oblique views along with computer-aided detection (CAD). Synthesized 2D images are generated from the tomosynthesis. FINDINGS: There are scattered areas of fibroglandular density (ACR BI-RADS breast composition Category b). There are no significant masses, abnormal calcifications, or other abnormalities. There are scattered stable minor asymmetries similar to prior studies. No developing density or interval architectural abnormality. There is minor scarring and some benign round calcifications anterior breasts consistent with the reduction mammoplasty. MM/MM tomosynthesis screening BI IMPRESSION: No significant changes from prior studies. ASSESSMENT: BI-RADS 2: Benign RECOMMENDATION: Routine annual mammography screening. This patient's information was entered into a reminder system with a target due date for their next mammogram.
== END 2021-08-05 14:38 | disposition home or self-care (01) ==
LOC: HO.MAMMO 14:37
PROVIDERS: PCP Internal Medicine; Visit Provider Family Medicine
DX: Z12.31 Encounter for screening mammogram for malignant neoplasm of breast (principal)
CPT/HCPCS: 77063; 77067

== ENCOUNTER → 2021-08-05 19:30 | Outpatient (REF) | payer OTHER, SELFPAY | LOC: HO.SL 19:30 | PROVIDERS: Visit Provider Internal Medicine | DX: G47.33 Obstructive sleep apnea (adult) (pediatric) (principal) | CPT/HCPCS: 95811 ==

== ENCOUNTER 2021-11-25 08:52 | Outpatient (REF) | payer OTHER, SELFPAY ==
--- NOTE | ~2021-11-25 | XR_ITS ---
EXAMINATION: XR HAND, RIGHT CLINICAL INFORMATION: First metacarpal pain without injury. COMPARISON: Radiographs dated 07/05/2020. TECHNIQUE: PA, lateral, and oblique views of the right hand. FINDINGS: Bony alignment and mineralization are normal. There is a mild ulnar positive variance. There is a small periventricular calcification seen at the interphalangeal joint of the thumb. There is very mild osteoarthritic change of the third distal interphalangeal joint. There is very mild osteoarthritic change of the first carpometacarpal joint. No fracture or dislocation is seen. The proximal and distal carpal rows are intact. A small accessory ossification center is seen adjacent to the ulnar styloid. No soft tissue swelling, gas or foreign body is seen. XR/XR hand LT min 3V IMPRESSION: There are very mild osteoarthritic changes, as detailed. No focal bone erosion is seen. There is no fracture or dislocation. EXAMINATION: XR HAND, LEFT CLINICAL INFORMATION: First metacarpal pain without injury. COMPARISON: Radiographs dated 07/05/2020. TECHNIQUE: PA, lateral, and oblique views of the left hand. FINDINGS: Bony alignment and mineralization are normal. There is a neutral ulnar variance. There is a small periarticular calcification at the interphalangeal joint of the thumb. There is very mild osteoarthritic change of the second and fifth distal interphalangeal joints. The proximal and distal carpal rows are intact. No focal bony erosive change is seen. No soft tissue swelling, gas or foreign body is seen. IMPRESSION: There are very mild osteoarthritic changes, as detailed. There is no focal bony erosive change. No fracture or dislocation is seen.
--- NOTE | ~2021-11-25 | XR_ITS ---
EXAMINATION: XR HAND, RIGHT CLINICAL INFORMATION: First metacarpal pain without injury. COMPARISON: Radiographs dated 07/05/2020. TECHNIQUE: PA, lateral, and oblique views of the right hand. FINDINGS: Bony alignment and mineralization are normal. There is a mild ulnar positive variance. There is a small periventricular calcification seen at the interphalangeal joint of the thumb. There is very mild osteoarthritic change of the third distal interphalangeal joint. There is very mild osteoarthritic change of the first carpometacarpal joint. No fracture or dislocation is seen. The proximal and distal carpal rows are intact. A small accessory ossification center is seen adjacent to the ulnar styloid. No soft tissue swelling, gas or foreign body is seen. XR/XR hand RT min 3V IMPRESSION: There are very mild osteoarthritic changes, as detailed. No focal bone erosion is seen. There is no fracture or dislocation. EXAMINATION: XR HAND, LEFT CLINICAL INFORMATION: First metacarpal pain without injury. COMPARISON: Radiographs dated 07/05/2020. TECHNIQUE: PA, lateral, and oblique views of the left hand. FINDINGS: Bony alignment and mineralization are normal. There is a neutral ulnar variance. There is a small periarticular calcification at the interphalangeal joint of the thumb. There is very mild osteoarthritic change of the second and fifth distal interphalangeal joints. The proximal and distal carpal rows are intact. No focal bony erosive change is seen. No soft tissue swelling, gas or foreign body is seen. IMPRESSION: There are very mild osteoarthritic changes, as detailed. There is no focal bony erosive change. No fracture or dislocation is seen.
[2021-11-25 10:14] LABS: C Reactive Protein 1.36 mg/dL (< or = 0.50)
[2021-11-25 10:31] LABS: Erythrocyte Sedimentation Rate 34 MM/HR (0-20)
== END 2021-11-25 08:53 | disposition home or self-care (01) ==
LOC: HO.LAB 08:52
PROVIDERS: PCP Internal Medicine; Visit Provider Internal Medicine Rheumatology
DX: M19.041 Primary osteoarthritis, right hand (principal); M19.042 Primary osteoarthritis, left hand; M17.0 Bilateral primary osteoarthritis of knee; M25.522 Pain in left elbow; M25.521 Pain in right elbow; M65.9 Synovitis and tenosynovitis, unspecified; R70.0 Elevated erythrocyte sedimentation rate; Z79.899 Other long term (current) drug therapy
CPT/HCPCS: 36415; 73130; 85652; 86140; 99202

== ENCOUNTER → 2021-11-30 07:18 | Outpatient (BNVA) | payer OTHER, SELFPAY | PROVIDERS: PCP Internal Medicine; Visit Provider Physician Assistant | DX: Z01.818 Encounter for other preprocedural examination (principal); K21.9 Gastro-esophageal reflux disease without esophagitis; G47.30 Sleep apnea, unspecified | CPT/HCPCS: 99202; 99212 ==

== ENCOUNTER 2022-01-25 08:47 | Outpatient (REF) | payer OTHER, SELFPAY ==
[2022-01-25 12:58] LABS: Free T4 (Free Thyroxine) 1.31 ng/dL (0.71-1.85); Thyroid Stimulating Hormone 0.47 uIU/mL (0.32-4.0)
== END 2022-01-25 08:48 | disposition home or self-care (01) ==
LOC: HO.LAB 08:47
PROVIDERS: PCP Internal Medicine; Visit Provider Internal Medicine
DX: E03.9 Hypothyroidism, unspecified (principal); E04.2 Nontoxic multinodular goiter
CPT/HCPCS: 36415; 84439; 84443; Q3014

== ENCOUNTER 2022-04-12 09:39 | Day surgery (SDC) | payer OTHER, SELFPAY ==
[2022-04-06 10:01] VITALS: BMI 44.1
--- NOTE | 2022-04-07 12:47 | HO.ANESPROP2 ---
Documented by User: Raquel Nichols NP 04/07/22 12:49 HPI - Anesthesia Eval Consult details Narrative: 51yo F for Upper Endoscopy and Colonoscopy Pulmo sleep medicine visit 01/2022: Severe KARLA much improved... Exertional dyspnea resolved. No evidence of obstructive or restrictive lung disease by PFTs [facility] Active Problems Active Problems: All Active Problems (Updated 04/06/22 @ 08:50 by Laura Nunez, TY) Encounter for screening colonoscopy (Acute) Sleep apnea (Acute) GERD (gastroesophageal reflux disease) (Acute) Osteoarthritis of hands, bilateral (Acute) Osteoarthritis of knees, bilateral (Acute) Flexor tenosynovitis of finger (Acute) Bilateral hand pain (Acute) Depression (Acute) ESR raised (Acute) Polyarthralgia (Acute) Vitamin D deficiency (Acute) Multinodular thyroid (Acute) Hypothyroidism (Acute) Past Medical History Medical History (Updated 04/06/22 @ 08:50 by Laura Nunez RN) Bilateral hand pain Depression ESR raised Flexor tenosynovitis of finger GERD (gastroesophageal reflux disease) Hypothyroidism Multinodular thyroid Osteoarthritis of hands, bilateral Osteoarthritis of knees, bilateral Polyarthralgia Sleep apnea Vitamin D deficiency Family History Family History Father Prostate cancer Hypothyroidism Mother Kidney problem Stroke Brother Kidney problem Surgical History Surgical History Hx of bilateral breast reduction surgery Hx of endoscopy Hx of tooth extraction Social History Social History Household Members: None Household Members Other:: Lives alone Housing: House Are you a primary rn palliative care to a significant other at home: No Do you presently have visiting nurse or other home services: Yes ([employer]) Alcohol intake: never Patient Tobacco Use Status: Never used Tobacco e-Cigarette/Vaping Use: Never Used Use of substances other than those prescribed or required for medical reasons: No Have you been hit, kicked, punched, or otherwise hurt by someone within the past year? If so, by whom?: No Are you DNR?: No Advance Directives Information Provided: Yes (brochure given) Advance Directives on File: No Recently lost weight without trying: No Eating poorly because of decreased appetite: No Nutrition Risks: No Nutritional Risk service: No Current occupational status: disabled Meds Allergies Allergy/AdvReac Type Severity Reaction Status Date / Time cinnamon [CINNAMON] Allergy Intermediate THROAT Verified 04/06/22 09:58 SWELLING soy Allergy Intermediate Itching Verified 04/06/22 09:58 calcium carbonate [From Tums] Allergy Unknown Unknown Verified 01/25/22 09:50 fluoxetine [From PROZAC] Allergy Unknown UNKNOWN Verified 01/25/22 09:50 Home Medications Medication Instructions Recorded Confirmed Last Taken Type albuterol sulfate 90 mcg/actuation 1 inh inhalation Q4H PRN Wheezing 06/05/20 04/06/22 Unknown History aerosol inhaler bupropion HCl 150 mg 24 hr tablet, 150 mg PO QAM 06/05/20 04/06/22 Unknown History extended release loratadine 10 mg tablet 10 mg PO DAILY 06/05/20 04/06/22 Unknown History lorazepam 0.5 mg tablet 0.5 mg PO BID PRN Anxiety 06/05/20 04/06/22 Unknown History omeprazole 40 mg capsule,delayed 40 mg PO DAILY 06/05/20 04/06/22 Unknown History release sucralfate 1 gram tablet 1 g PO QID 06/05/20 04/06/22 Unknown History citalopram 10 mg tablet 10 mg PO DAILY 07/28/20 04/06/22 Unknown History citalopram 20 mg tablet 20 mg PO DAILY 01/26/21 04/06/22 Unknown History fluticasone propionate 50 1 spray intranasal DAILY 11/25/21 04/06/22 Unknown History mcg/actuation nasal spray,suspension (Flonase Allergy Relief) Exam Exam Date and Time: April 07, 2022 1247 Height,Weight and Vital Signs: Height 5 ft 1 in Weight 105.959 kg Assessment and Plan Assessment Anesthesia Assessment: Chart Reviewed Documented by User: Екатерина Warren MD 04/12/22 09:57 [facility] Past Medical History Medical History (Updated 04/06/22 @ 08:50 by Laura Nunez RN) Bilateral hand pain Depression ESR raised Flexor tenosynovitis of finger GERD (gastroesophageal reflux disease) Hypothyroidism Multinodular thyroid Osteoarthritis of hands, bilateral Osteoarthritis of knees, bilateral Polyarthralgia Sleep apnea Vitamin D deficiency Family History Family History Father Prostate cancer Hypothyroidism Mother Kidney problem Stroke Brother Kidney problem Family history of problems with anesthesia: No Surgical History Surgical History Hx of bilateral breast reduction surgery Hx of endoscopy Hx of tooth extraction History of Problems with Anesthesia: No Social History Social History Household Members: None Household Members Other:: Lives alone Housing: House Are you a primary rn palliative care to a significant other at home: No Do you presently have visiting nurse or other home services: Yes ([employer]) Alcohol intake: never Patient Tobacco Use Status: Never used Tobacco e-Cigarette/Vaping Use: Never Used Use of substances other than those prescribed or required for medical reasons: No Have you been hit, kicked, punched, or otherwise hurt by someone within the past year? If so, by whom?: No Are you DNR?: No Advance Directives Information Provided: Yes (brochure given) Advance Directives on File: No Recently lost weight without trying: No Eating poorly because of decreased appetite: No Nutrition Risks: No Nutritional Risk service: No Current occupational status: disabled Meds Allergies Allergy/AdvReac Type Severity Reaction Status Date / Time cinnamon [CINNAMON] Allergy Intermediate THROAT Verified 04/06/22 09:58 SWELLING soy Allergy Intermediate Itching Verified 04/06/22 09:58 calcium carbonate [From Tums] Allergy Unknown Unknown Verified 01/25/22 09:50 fluoxetine [From PROZAC] Allergy Unknown UNKNOWN Verified 01/25/22 09:50 Home Medications Medication Instructions Recorded Confirmed Last Taken Type albuterol sulfate 90 mcg/actuation 1 inh inhalation Q4H PRN Wheezing 06/05/20 04/06/22 Unknown History aerosol inhaler bupropion HCl 150 mg 24 hr tablet, 150 mg PO QAM 06/05/20 04/06/22 Unknown History extended release loratadine 10 mg tablet 10 mg PO DAILY 06/05/20 04/06/22 Unknown History lorazepam 0.5 mg tablet 0.5 mg PO BID PRN Anxiety 06/05/20 04/06/22 Unknown History omeprazole 40 mg capsule,delayed 40 mg PO DAILY 06/05/20 04/06/22 Unknown History release sucralfate 1 gram tablet 1 g PO QID 06/05/20 04/06/22 Unknown History citalopram 10 mg tablet 10 mg PO DAILY 07/28/20 04/06/22 Unknown History citalopram 20 mg tablet 20 mg PO DAILY 01/26/21 04/06/22 Unknown History fluticasone propionate 50 1 spray intranasal DAILY 11/25/21 04/06/22 Unknown History mcg/actuation nasal spray,suspension (Flonase Allergy Relief) Exam Airway Mallampati Class: II (Missing 1-2) TM Dist: >3cm Neck ROM: Full Heart: rrr Lungs: cta Assessment and Plan Assessment Anesthesia Assessment: Anesthesia Plan Discussed Final Anesthetic Review Family History of Problems with Anesthesia: No History of Problems with Anesthesia: No NPO: Yes ASA Class: III Final Preanesthetic Review: No Changes in Pt Med Stat, Meds/Allgs Chart Reviewed and Consent Obtained/Reviewed Patient Risk: Intermediate Procedure Risk: Intermediate Anesthetic Plan Anesthetic Plan: MAC: Disposition: Standard PACU
[2022-04-12 09:47] VITALS: BP 143/78; PULSE 87; RESP 17; TEMP 36.1; O2SAT 98
[2022-04-12] MEDS: Lactated Ringers 1,000 ML 100 ML IVCONT (10:13)
--- NOTE | 2022-04-12 10:53 | MHC.SHP ---
Pre-Procedural Eval Section A Date of Service: 04/12/22 The patient is an INPATIENT: No The History & Physical has been completed within 30 days and I have reviewed it.: No Section B Chief Complaint: reflux disease,screening Details of Present Illness: colon cancer screening, GERD Relevant Family History (Specify if Yes): No Relevant Social History: None Present Medications: see Short Stay Collaborative assessment Medical History: Significant History (Bilateral hand pain Depression ESR raised Flexor tenosynovitis of finger GERD (gastroesophageal reflux disease) Hypothyroidism Multinodular thyroid Osteoarthritis of hands, bilateral Osteoarthritis of knees, bilateral Polyarthralgia Sleep apnea Vitamin D deficiency) History of Previous Operations: Relevant previous surgery/procedure and date(s) (Hx of bilateral breast reduction surgery Hx of endoscopy Hx of tooth extraction) Allergies: Allergies Allergy/AdvReac Type Severity Reaction Status Date / Time cinnamon [CINNAMON] Allergy Intermediate THROAT Verified 04/06/22 09:58 SWELLING soy Allergy Intermediate Itching Verified 04/06/22 09:58 calcium carbonate [From Tums] Allergy Unknown Unknown Verified 01/25/22 09:50 fluoxetine [From PROZAC] Allergy Unknown UNKNOWN Verified 01/25/22 09:50 Review of Systems Sugical H&P ROS: Negative: Constitution, Cardiovascular, Respiratory and Gastrointestinal Exam Surgical H&P Exam: Normal: Heart, Normal: Lungs, Normal: Extremities and Normal: Abdomen Plan Diagnosis/Plan: Unchanged I have reviewed the history and physical and performed a pertinent physical examination on my patient. No changes have occurred unless specified.
--- NOTE | 2022-04-12 10:58 | P.BOP_ITS ---
Brief Operative Note Date of Service: 04/12/22 Pre-op diagnosis: colon cancer screening, GERD Post-op diagnosis: other ( GERD, gastritis, colon polyps, diverticulosis, hemorrhoids) Procedure: FLEXIBLE TRANSORAL UPPER GASTROINTESTINAL ENDOSCOPY WITH BIOPSIES AND COLONOSCOPY TILL CECUM WITH BIOPSIES UPPER ENDOSCOPY Consent: Indications for the procedure and potential complications of bleeding, perforation, reaction to medications and missed diagnosis were discussed with the patient and informed consent was obtained. Instrument: Olympus GIF H 190 mid size upper endoscope Monitoring: Vital signs and clinical assessment, continuous EKG monitoring, Pulse oximetry, Carbon Dioxide monitoring and blood pressure monitoring were done throughout the procedure. Procedure: The patient was placed in the left lateral decubitis position and pre-procedure medications were administered and a bite block was placed. The endoscope was inserted into the mouth and advanced under direct vision to the third part of duodenum. A careful inspection was made as the upper endoscope was withdrawn including a retroflexed examination of the proximal stomach; Findings and interventions are described below. Findings: Larynx: Normal Esophagus: GE junction at 36 cms. One 0.5 cms superficial healing erosion at the GEJ and no Olivo's. Stomach: Mild gastric erythema with a few chronic appearing antral erosions. Biopsies were obtained. Grade 2 flap valve on retroflexed examination of the cardia. Duodenum: Mild duodenitis in the bulb and normal descending duodenum Intervention: Biopsies as noted above COLONOSCOPY PROCEDURE NOTE Consent: Indications for the procedure and potential complications of bleeding, perforation, reaction to medications and missed diagnosis were discussed with the patient and informed consent was obtained. Instrument: Olympus PCF H 190 L variable stiffness pediatric colonoscope Monitoring: Vital signs and clinical assessment, intermittent blood pressure monitoring, continuous EKG monitoring, Pulse oximetry and Carbon Dioxide monitoring were done throughout the procedure. Colon withdrawl time was 15 minutes. Procedure: The patient was placed in the left lateral decubitis position and pre-procedure medications were administered. After a digital rectal examination of the ano-rectum, the video colonoscope was inserted into the rectum and advanced through the colon to the cecum. The colonoscope was slowly withdrawn in a retrograde panoramic fashion and the colon mucosa was carefully examined including a retroflexed view of the rectum. Findings and interventions are described below. Procedure Difficulty: : Without difficulty Findings: Terminal Ileum: Not evaluated Cecum: Normal Ascending Colon: A 3-4 mm sessile polyp in the proximal AC removed with a cold bx Transverse Colon: A 7-8 mms sessile polyp removed with a cold bx Descending Colon: Normal Sigmoid Colon: Moderate diverticulosis Rectum: Normal Ano-rectum: Moderate internal hemorrhoids Colon preparation: Excellent Impression and Post Procedure Diagnosis: Endoscopy Findings: ESOPHAGUS: GE junction at 36 cms. One 0.5 cms superficial healing erosion at the GEJ and no Olivo's. STOMACH: Mild gastric erythema with a few chronic appearing antral erosions. Biopsies were obtained. Grade 2 flap valve on retroflexed examination of the cardia. DUODENUM: Mild duodenitis in the bulb and normal descending duodenum Colonoscopy Findings: Two small polyps removed Moderate diverticulosis seen in the sigmoid colon Moderate hemorrhoids on retroflexed exam. Plan: Await pathology results Patient has an appointment on 04/26/22 in the [facility] Clinic with NADIR Quick . Repeat Colonoscopy interval based on path results - in 5 years if polyps are adenomatous and 10 years if polyps are hyperplastic. Above findings were reviewed with the patient and colon polyps and diverticulosis handouts were given in the discharge area Surgeon: Prieto Muhammad MD Anesthesia: MAC Was an Director Economic used for this Procedure?: Yes Director Economic: Camilo Clifford Estimated blood loss (mL): 0 Pathology: other (A) BX Gastric Antrum ( Rule Out H. Pylori) B) Polyp Ascending Colon C) Polyp Transverse Colon) Condition: stable Disposition: PACU
--- NOTE | 2022-04-12 10:58 | W.PM.OPN ---
Operative Note Operative Note Date of Service: 04/12/22 Narrative: Pre-op diagnosis: Colon cancer screening, GERD Post-op diagnosis:?other ( GERD, gastritis, colon polyps, diverticulosis, hemorrhoids) Procedure: FLEXIBLE TRANSORAL UPPER GASTROINTESTINAL ENDOSCOPY WITH BIOPSIES AND COLONOSCOPY TILL CECUM WITH BIOPSIES UPPER ENDOSCOPY Consent:?Indications for the procedure and potential complications of bleeding, perforation, reaction to medications and missed diagnosis were discussed with the patient and informed consent was obtained. Instrument:?Olympus GIF H 190 mid size upper endoscope Monitoring: Vital signs and clinical assessment, continuous EKG monitoring, Pulse oximetry, Carbon Dioxide monitoring and blood pressure monitoring were done throughout the procedure. Procedure:?The patient was placed in the left lateral decubitis position and pre-procedure medications were administered and a bite block was placed. The endoscope was inserted into the mouth and advanced under direct vision to the third part of duodenum. A careful inspection was made as the upper endoscope was withdrawn including a retroflexed examination of the proximal stomach; Findings and interventions are described below. Findings: Larynx:? Normal Esophagus:?GE junction at 36 cms.? One 0.5 cms superficial healing erosion at the GEJ and no Olivo's. Stomach:?Mild gastric erythema with a few chronic appearing antral erosions. Biopsies were obtained. Grade 2 flap valve on retroflexed examination of the cardia. Duodenum:?Mild duodenitis in the bulb and normal descending duodenum Intervention:?Biopsies as noted above COLONOSCOPY PROCEDURE NOTE Consent:?Indications for the procedure and potential complications of bleeding, perforation, reaction to medications and missed diagnosis were discussed with the patient and informed consent was obtained. Instrument:?Olympus PCF H 190 L variable stiffness pediatric colonoscope Monitoring:?Vital signs and clinical assessment, intermittent blood pressure monitoring, continuous EKG monitoring, Pulse oximetry and Carbon Dioxide monitoring were done throughout the procedure. Colon withdrawl time was 15 minutes. Procedure:?The patient was placed in the left lateral decubitis position and pre-procedure medications were administered. After a digital rectal examination of the ano-rectum, the video colonoscope was inserted into the rectum and advanced through the colon to the cecum. The colonoscope was slowly withdrawn in a retrograde panoramic fashion and the colon mucosa was carefully examined including a retroflexed view of the rectum. Findings and interventions are described below. Procedure Difficulty:?: Without difficulty Findings: Terminal Ileum: Not evaluated Cecum:? Normal Ascending Colon:??A 3-4 mm sessile polyp in the proximal AC removed with a cold bx Transverse Colon:??A 7-8 mms sessile polyp removed with a cold bx Descending Colon:? Normal Sigmoid Colon:??Moderate diverticulosis Rectum:??Normal Ano-rectum:??Moderate internal hemorrhoids Colon preparation: Excellent ? Impression and Post Procedure Diagnosis: Endoscopy Findings: ESOPHAGUS:? GE junction at 36 cms.? One 0.5 cms superficial healing erosion at the GEJ and no Olivo's. STOMACH: Mild gastric erythema with a few chronic appearing antral erosions. Biopsies were obtained. Grade 2 flap valve on retroflexed examination of the cardia. DUODENUM: Mild duodenitis in the bulb and normal descending duodenum Colonoscopy Findings: Two small polyps removed Moderate diverticulosis seen in the sigmoid colon Moderate hemorrhoids on retroflexed exam. Plan: Await pathology results Patient has an appointment on 04/26/22 in the GI Clinic with NADIR Quick . Repeat Colonoscopy interval based on path results - in 5 years if polyps are adenomatous and 10 years if polyps are hyperplastic. Above findings were reviewed with the patient and colon polyps and diverticulosis handouts were given in the discharge area Surgeon: Prieto Muhammad MD Anesthesia:?MAC Was an Lieutenant Ballistics used for this Procedure?:?Yes Lieutenant Ballistics:?Camilo Clifford Estimated blood loss (mL):?0 Pathology:?other (A) BX Gastric Antrum ( Rule Out H. Pylori)? B) Polyp Ascending Colon? C) Polyp Transverse Colon) Condition:?stable Disposition:?PACU
[2022-04-12 11:39] VITALS: BP 112/77; PULSE 89; RESP 16; TEMP 36.2; O2SAT 97
[2022-04-12 11:54] VITALS: BP 120/71; PULSE 83; RESP 16; TEMP 36.1; O2SAT 98
== END 2022-04-12 12:25 ==
LOC: HO.SSS 09:39
PROVIDERS: PCP Internal Medicine; Visit Provider Internal Medicine Gastroenterology
PROC: (CPT 45380; principal; 2022-04-12 11:00)
DX: Z12.11 Encounter for screening for malignant neoplasm of colon (principal); D12.3 Benign neoplasm of transverse colon; K63.5 Polyp of colon; K57.30 Diverticulosis of large intestine without perforation or abscess without bleeding; K64.8 Other hemorrhoids; K21.9 Gastro-esophageal reflux disease without esophagitis; K29.50 Unspecified chronic gastritis without bleeding; K29.80 Duodenitis without bleeding; E03.9 Hypothyroidism, unspecified; R70.0 Elevated erythrocyte sedimentation rate; G47.33 Obstructive sleep apnea (adult) (pediatric); F41.8 Other specified anxiety disorders; E55.9 Vitamin D deficiency, unspecified; Z79.899 Other long term (current) drug therapy; Z88.8 Allergy status to other drugs, medicaments and biological substances
CPT/HCPCS: 45380; 43239; 88305; 88342

== ENCOUNTER → 2022-04-26 07:50 | Outpatient (BNVA) | payer OTHER, SELFPAY | PROVIDERS: PCP Internal Medicine; Referring Provider Internal Medicine; Visit Provider Physician Assistant | DX: K64.9 Unspecified hemorrhoids (principal); K57.30 Diverticulosis of large intestine without perforation or abscess without bleeding; D36.9 Benign neoplasm, unspecified site; K59.09 Other constipation | CPT/HCPCS: 99212 ==

== ENCOUNTER 2022-07-28 18:53 | Emergency (ER) | payer OTHER, SELFPAY ==
[2022-07-28 19:00] VITALS: BP 172/98; BP 175/86; PULSE 100; PULSE 102; RESP 18; TEMP 36.8; O2SAT 100; O2SAT 98; BMI 45.1
[2022-07-28 19:05] VITALS: BP 156/85; PULSE 87; RESP 18; TEMP 36.8; O2SAT 97
[2022-07-28 21:37] VITALS: BP 138/77; PULSE 92; RESP 13; O2SAT 98
--- NOTE | 2022-07-28 21:47 | ED_ITS ---
HPI - General Adult General Chief complaint: General Medical Stated complaint: HIGH BLOOD PRESSURE 220/110 PER EMS Time Seen by Provider: 07/28/22 21:38 Source: patient Mode of arrival: EMS Limitations: no limitations History of Present Illness HPI narrative: Patient history of borderline hypertension not on any medications strong family history of hypertension went to her lung specialist check her blood pressure was 152/94 went to her PCP was started on amlodipine 5 mg which she took it at 14:00 around 17:00 patient was anxious checked her blood pressure was 200/100 got worried called ambulance no chest pain or palpitation no syncope diaphoresis on arrival patient's blood pressure was 138/77 repeat blood pressure 122/78 with heart rate in 70s Related Data Home Medications Medication Instructions Recorded Confirmed albuterol sulfate 90 mcg/actuation 1 inh inhalation Q4H PRN Wheezing 06/05/20 04/06/22 aerosol inhaler bupropion HCl 150 mg 24 hr tablet, 150 mg PO QAM 06/05/20 04/06/22 extended release loratadine 10 mg tablet 10 mg PO DAILY 06/05/20 04/06/22 lorazepam 0.5 mg tablet 0.5 mg PO BID PRN Anxiety 06/05/20 04/06/22 omeprazole 40 mg capsule,delayed 40 mg PO DAILY 06/05/20 04/06/22 release citalopram 10 mg tablet 10 mg PO DAILY 07/28/20 04/06/22 citalopram 20 mg tablet 20 mg PO DAILY 01/26/21 04/06/22 fluticasone propionate 50 1 spray intranasal DAILY 11/25/21 04/06/22 mcg/actuation nasal spray,suspension (Flonase Allergy Relief) Previous Rx's Medication Instructions Recorded cholecalciferol (vitamin D3) 50 50 mcg PO DAILY 30 days #30 caps 08/12/21 mcg (2,000 unit) capsule levothyroxine 75 mcg tablet 75 mcg PO QAM #30 tabs 08/12/21 (Euthyrox) bisacodyl 10 mg rectal suppository 10 mg CO DAILY PRN constipation 04/26/22 (Dulcolax (bisacodyl)) #20 ea docusate sodium 100 mg capsule 200 mg PO BEDTIME #60 caps 04/26/22 (Colace) methylcellulose (laxative) 500 mg 500 mg PO BID #60 tabs 04/26/22 tablet (Citrucel) polyethylene glycol 3350 17 17 g PO DAILY #510 grams 04/26/22 gram/dose oral powder (Miralax) Allergies Allergy/AdvReac Type Severity Reaction Status Date / Time cinnamon [CINNAMON] Allergy Intermediate THROAT Verified 04/26/22 08:01 SWELLING soy Allergy Intermediate Itching Verified 04/26/22 08:01 calcium carbonate [From Tums] Allergy Unknown Unknown Verified 04/26/22 08:01 fluoxetine [From PROZAC] Allergy Unknown UNKNOWN Verified 04/26/22 08:01 Review of Systems Review of Systems: Yes all other systems are reviewed and are negative PMFSH Past Medical History Medical History Bilateral hand pain Depression ESR raised Flexor tenosynovitis of finger GERD (gastroesophageal reflux disease) Hypothyroidism Multinodular thyroid Osteoarthritis of hands, bilateral Osteoarthritis of knees, bilateral Polyarthralgia Sleep apnea Vitamin D deficiency Surgical History Hx of bilateral breast reduction surgery Hx of colonoscopy Hx of endoscopy Hx of tooth extraction Family History Family History Father Prostate cancer Hypothyroidism Mother Kidney problem Stroke Brother Kidney problem Social History Social History Household Members: None Household Members Other:: Lives alone Housing: House Are you a primary career development counselor to a significant other at home: No 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 Oriented X3. No acute distress. Eyes: PERRLA, No Nystagmus ENT: Pharynx normal. Oral Mucosa moist Neck: Normal inspection. Neck supple. CVS: Normal heart rate and rhythm. Pulses normal. Respiratory: No respiratory distress. Equal air entry bilateral, no wheezing/rales/rhonchi Abdomen: Soft and nontender. Bowel sounds are present, no mass palpable, no CVA tenderness Skin: Skin warm and dry. Normal skin color. Normal skin turgor. Extremities: No lower extremity edema. No calf tenderness Neuro: Oriented X 3. No motor deficit. Medical Decision Making Medical Decision Making [facility] Narrative: Patient with history of anxiety increased caffeine intake had transient high blood pressures responded to antihypertensive amlodipine. Will discharge patient home advised to follow with PCP patient's previous labs were stable Discharge Plan Discharge Clinical Impression: Essential (primary) hypertension Patient Disposition: Home, Self-Care Instructions: Hypertension (ED) Additional Instructions: Avoid caffeine, decrease salt intake Continue amlodipine 5 mg daily as prescribed by PCP Check blood pressure before taking the medicine and before you go to bed and follow with PCP Prescriptions: No Action levothyroxine [Euthyrox] 75 mcg tablet 75 mcg PO QAM Qty: 30 11RF cholecalciferol (vitamin D3) 50 mcg (2,000 unit) capsule 50 mcg PO DAILY 30 Days Qty: 30 11RF citalopram 10 mg tablet 10 mg PO DAILY bupropion HCl 150 mg tablet extended release 24 hr 150 mg PO QAM lorazepam 0.5 mg tablet 0.5 mg PO BID PRN (Reason: Anxiety) omeprazole 40 mg capsule,delayed release(DR/EC) 40 mg PO DAILY loratadine 10 mg tablet 10 mg PO DAILY albuterol sulfate 90 mcg/actuation HFA aerosol inhaler 1 inh inhalation Q4H PRN (Reason: Wheezing) citalopram 20 mg tablet 20 mg PO DAILY docusate sodium [Colace] 100 mg capsule 200 mg PO BEDTIME Qty: 60 5RF Citrucel 500 mg tablet 500 mg PO BID Qty: 60 5RF polyethylene glycol 3350 [Miralax] 17 gram/dose powder 17 g PO DAILY Qty: 510 6RF bisacodyl [Dulcolax (bisacodyl)] 10 mg suppository 10 mg CO DAILY PRN (Reason: constipation) Qty: 20 0RF fluticasone propionate [Flonase Allergy Relief] 50 mcg/actuation spray,suspension 1 spray intranasal DAILY Rx Instructions: administer into each nostril
== END 2022-07-28 22:21 | disposition home or self-care (01) ==
PROVIDERS: Emergency Provider Internal Medicine; PCP Internal Medicine
DX: I10 Essential (primary) hypertension (principal); Z79.899 Other long term (current) drug therapy
CPT/HCPCS: 99282; 99284

== ENCOUNTER 2022-09-09 08:05 | Outpatient (REF) | payer OTHER, SELFPAY ==
--- NOTE | ~2022-09-09 | MM_ITS ---
EXAMINATION: MM SCREENING DIGITAL BREAST TOMOSYNTHESIS, BILATERAL CLINICAL INFORMATION: Screening. Asymptomatic. The lifetime risk of breast cancer based on the Tyrer-Cuzick Model is 10.5%. COMPARISON: Mammography: August 05, 2021 and studies dating back to March 29, 2018 TECHNIQUE: Digital breast tomosynthesis is performed in both the craniocaudal and mediolateral oblique views along with computer-aided detection (CAD). Synthesized 2D images are generated from the tomosynthesis. FINDINGS: The breasts are almost entirely fatty (ACR BI-RADS breast composition Category a). There are no significant masses, abnormal calcifications, or other abnormalities. MM/MM tomosynthesis screening BI IMPRESSION: No significant changes from prior exam. ASSESSMENT: BI-RADS 1: Negative RECOMMENDATION: Routine annual mammography screening. This patient's information was entered into a reminder system with a target due date for their next mammogram.
== END 2022-09-09 08:06 | disposition home or self-care (01) ==
LOC: HO.MAMMO 08:05
PROVIDERS: PCP Internal Medicine; Visit Provider Internal Medicine
DX: Z12.31 Encounter for screening mammogram for malignant neoplasm of breast (principal)
CPT/HCPCS: 77063; 77067

== ENCOUNTER 2022-12-08 21:22 | Emergency (ER) | payer OTHER, SELFPAY ==
--- NOTE | ~2022-12-08 | XR_ITS ---
EXAMINATION: XR SHOULDER, LEFT CLINICAL INFORMATION: Injury COMPARISON: None available. TECHNIQUE: Three views of the left shoulder. FINDINGS: Humeral head is suspected to be mildly subluxed anteriorly relative to the glenoid. Soft tissue calcification posterior to the humeral head suggests calcific rotator cuff tendinopathy. No acute fracture is seen. Acromioclavicular joint is intact. XR/XR shoulder LT min 2V IMPRESSION: Suspect mild anterior subluxation of the humeral head relative to the glenoid. No acute fracture identified.
[2022-12-08 21:24] VITALS: BP 131/75; PULSE 132; RESP 16; TEMP 36.9; O2SAT 98; BMI 41.0
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
[2022-12-08 23:14] VITALS: BP 114/72; PULSE 95; RESP 18; TEMP 36.7; O2SAT 99
--- NOTE | 2022-12-08 23:14 | MHC.EDTECH ---
This tech assumed care of this pt at 2300, vitals taken, pt resting comfortably and call brown within reach.
--- NOTE | 2022-12-09 00:03 | PC.NURSE ---
pt clam and cooperative. at bedside. medical billing coder placed sling on L arm. cms intact. pt ambulatory at discharge. vss. pt provided with discharge packet. pt verbalized understanding of discharge plan
== END 2022-12-09 00:05 | disposition home or self-care (01) ==
PROVIDERS: Emergency Provider Emergency Medicine; PCP Internal Medicine
DX: S43.012A Anterior subluxation of left humerus, initial encounter (principal); S06.0X0A Concussion without loss of consciousness, initial encounter; Y04.2XXA Assault by strike against or bumped into by another person, initial encounter; Y93.89 Activity, other specified; Y92.481 Parking lot as the place of occurrence of the external cause; Y99.8 Other external cause status
CPT/HCPCS: 73030; 99283; 99284

== ENCOUNTER 2022-12-22 10:40 | Outpatient (REF) | payer OTHER, SELFPAY ==
--- NOTE | ~2022-12-22 | XR_ITS ---
EXAMINATION: XR SHOULDER, LEFT CLINICAL INFORMATION: Pain. COMPARISON: Prior radiographs, most recently 12/08/2022. TECHNIQUE: AP neutral, scapular Y, and axillary views of the left shoulder. FINDINGS: Bony mineralization is normal. There is persistent, diminished anteroinferior subluxation of the left humeral head relative to the glenoid. Soft tissue calcification is again seen posterior to the humeral head, consistent with rotator cuff tendinopathy. No fracture or dislocation is seen. The acromioclavicular and coracoclavicular intervals are normal. There is no foreign body. No left pneumothorax is seen. XR/XR shoulder LT min 2V IMPRESSION: 1. There is interim improvement in previously seen left glenohumeral joint subluxation, without full resolution. 2. Findings are consistent with calcific tendinitis of the left rotator cuff.
== END 2022-12-22 10:41 | disposition home or self-care (01) ==
LOC: HO.HOSX 10:40
PROVIDERS: PCP Internal Medicine; Visit Provider Physician Assistant
DX: M25.512 Pain in left shoulder (principal); S43.002A Unspecified subluxation of left shoulder joint, initial encounter; Y04.8XXA Assault by other bodily force, initial encounter; Y93.9 Activity, unspecified; Y92.9 Unspecified place or not applicable; Y99.9 Unspecified external cause status
CPT/HCPCS: 73030; 99202

== ENCOUNTER 2023-01-03 14:05 | Outpatient (AMB) | payer OTHER, SELFPAY ==
[2023-01-03 14:13] VITALS: BP 126/61; PULSE 100; BMI 41.2
--- NOTE | 2023-01-03 14:13 | A.OFFVIS_ITS ---
Intake Vital Signs 01/03/23 14:13 Height 5 ft 1 in Weight 218 lb BMI 41.2 BP 126/61 Blood Pressure Location Rt brachial Position Sitting Pulse 100 Intake Visit Reasons: Hemorrhoids Intake Note: This patient presents for an assessment for hemorrhoids. Patient c/o; was experiencing bleeding a couple weeks ago, denies pain, constipation. Employee Representative Required: No Accompanied by: Self / Same As Patient Allergies cinnamon [CINNAMON] Allergy (Intermediate, Verified 01/03/23 14:20) THROAT SWELLING soy Allergy (Intermediate, Verified 01/03/23 14:20) Itching calcium carbonate [From Tums] Allergy (Unknown, Verified 01/03/23 14:20) Unknown fluoxetine [From PROZAC] Allergy (Unknown, Verified 01/03/23 14:20) UNKNOWN Medication List - Last Reconciled 01/03/23 by Chauncey Parra MD albuterol sulfate 90 mcg/actuation 1 inh inhalation Q4H PRN amlodipine 10 mg PO DAILY bupropion HCl 150 mg PO QAM cholecalciferol (vitamin D3) 50 mcg PO DAILY 30 days citalopram 10 mg PO DAILY citalopram 20 mg PO DAILY CPAP (CPAP Machine/Device) As directed docusate sodium (Colace) 200 mg (2 x 100 mg) PO BEDTIME fluticasone propionate 50 mcg/actuation (Flonase Allergy Relief) 1 spray intranasal DAILY hydrocortisone 2.5% (Proctosol HC) 1 appl [place] BEDTIME PRN levothyroxine (Euthyrox) 75 mcg PO QAM lisinopril 10 mg PO DAILY lorazepam 0.5 mg PO BID PRN methylcellulose (laxative) (Citrucel) 500 mg PO BID methylcellulose (laxative) (Citrucel) 500 mg PO TID 30 days omeprazole 40 mg PO DAILY polyethylene glycol 3350 (Miralax) 17 grams PO DAILY HPI Hemorrhoids HPI Details [age] year old female referred for hemorrhoid issues. She says she knows he has had hemorrhoids from before for many years. She says she never really had problems with this. However, few weeks ago, she was very constipated and at some point with a bowel movement, she noted blood wiping as well as the toilet bowl. She also felt that her hemorrhoids were swollen at that time with some pain. She has had no recurrence since then. She was referred to me therefore because of the above problems. She had a recent colonoscopy about 5 months ago was told she had hemorrhoids. [facility] Medical History Bilateral hand pain Depression ESR raised Flexor tenosynovitis of finger GERD (gastroesophageal reflux disease) Hypothyroidism Multinodular thyroid Osteoarthritis of hands, bilateral Osteoarthritis of knees, bilateral Polyarthralgia Sleep apnea Vitamin D deficiency Surgical History Hx of bilateral breast reduction surgery Hx of colonoscopy Hx of endoscopy Hx of tooth extraction Family History Father Prostate cancer Hypothyroidism Mother Kidney problem Stroke Brother Kidney problem Social History Household Members: None Household Members Other:: Lives alone Housing: House Are you a primary pet care associate to a significant other at home: No Do you presently have visiting nurse or other home services: 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) 75 years or older and lives alone: No Alcohol intake: never Patient Tobacco Use Status: Never used Tobacco e-Cigarette/Vaping Use: Never Used service: No Current occupational status: disabled Review of Systems Const Denies chills and Denies fever(s) Card Denies chest pain, Denies dyspnea and Denies dyspnea on exertion Resp Denies cough, Denies dyspnea and Denies dyspnea on exertion GI Reports hematochezia, Denies change in bowel habits and Reports constipation Denies hematuria Musc Denies back pain and Denies limited range of motion Neuro Denies focal weakness and Denies convulsions Psych Denies depression and Denies mood swings Physical Exam Vital Signs: Last Vital Signs Pulse 100 01/03/23 14:13 BP 126/61 01/03/23 14:13 BMI result Body Mass Index 41.2 Const General: comfortable and no acute distress Orientation/consciousness: patient oriented x3 Neck Neck: Yes no lymphadenopathy Resp Auscultation: clear to auscultation bilaterally Cardio Rhythm: regular rhythm GI Other: Rectal exam shows small external hemorrhoids, left and right, anoscopy done Palpation (GI): Soft to palpation, nontender and no guarding Neuro General: patient oriented x3 Office Procedures Anoscopy She was in patricio-knife position. The anoscope was gently inserted. A full examination of the anal canal was done. She did have mixed internal external hemorrhoidal columns, prominent but non bulky, right more than the left, no other lesions, no fissure, no pain, no tenderness or induration [id number] Assessment & Plan Assessment & Plan (1) Hemorrhoids: Code(s): K64.9 - Unspecified hemorrhoids Plan: She describes having an episode of bleeding and pain from her hemorrhoids about 3 weeks ago. She says that her symptoms have completely resolved. She feels well currently without any complaints Examination does reveal internal and external hemorrhoid columns. I told her that at this point, I would not recommend proceeding with hemorrhoidectomy. I advised her on the benefits of avoiding straining and constipation. I instructed her to take some fiber supplements She is welcome to come back to the office to be re-evaluated down the line if she has significant symptoms. Coding Level of Care Code New Pt Level 3 (92736) Diagnoses Hemorrhoids K64.9 CPT Codes Details - CPT: 07383-[place] ([id number])
== END 2023-01-03 15:12 | disposition home or self-care (01) ==
PROVIDERS: PCP Internal Medicine; Referring Provider Physician Assistant; Visit Provider Surgery
DX: K64.9 Unspecified hemorrhoids (principal)
CPT/HCPCS: 46600; 99203

== ENCOUNTER → 2023-01-03 14:05 | Outpatient (BNVA) | payer OTHER, SELFPAY | PROVIDERS: PCP Internal Medicine; Referring Provider Physician Assistant; Visit Provider Surgery | DX: K64.9 Unspecified hemorrhoids (principal); K59.00 Constipation, unspecified; K92.1 Melena; K21.9 Gastro-esophageal reflux disease without esophagitis | CPT/HCPCS: 46600; 99202 ==

== ENCOUNTER 2023-03-09 12:18 | Outpatient (AMB) | payer OTHER, SELFPAY ==
--- NOTE | 2023-03-09 12:28 | A.OFFVIS_ITS ---
Intake Vital Signs 03/09/23 12:29 Height 5 ft 1 in Weight 218 lb BMI 41.2 Intake Visit Reasons: OV-Left shoulder pain F/U Intake Note: Laisha a 52 year old female who presents today for MRI review of left shoulder pain. Patient reports her pain is better, but feels like something is tearing inside of her shoulder. Allergies cinnamon [CINNAMON] Allergy (Intermediate, Verified 03/09/23 12:29) THROAT SWELLING soy Allergy (Intermediate, Verified 03/09/23 12:29) Itching calcium carbonate [From Tums] Allergy (Unknown, Verified 03/09/23 12:29) Unknown fluoxetine [From PROZAC] Allergy (Unknown, Verified 03/09/23 12:) UNKNOWN HPI OV-Left shoulder pain F/U HPI Details 52-year-old female who returns to the [facility] today for a follow-up of left shoulder pain. She states she continues to have pain in the left shoulder with daily activities and feels like her shoulder will come out of the socket. [facility] Medical History Bilateral hand pain Depression ESR raised Flexor tenosynovitis of finger GERD (gastroesophageal reflux disease) Hypothyroidism Multinodular thyroid Osteoarthritis of hands, bilateral Osteoarthritis of knees, bilateral Polyarthralgia Sleep apnea Vitamin D deficiency Surgical History Hx of colonoscopy Hx of tooth extraction Hx of endoscopy Hx of bilateral breast reduction surgery Family History Father Prostate cancer Hypothyroidism Mother Kidney problem Stroke Brother Kidney problem Social History Household Members: None Household Members Other:: Lives alone Housing: House Are you a primary respiratory care assistant to a significant other at home: No Do you presently have visiting nurse or other home services: 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 Tenderness over the bicipital groove and pain with active and passive ROM. RTC strength intact . Positive Ekenan's NVI. Results Reviewed Results Reviewed: MRI of the left shoulder obtained on 02/24/23: Findings suspicious of SLAP tear Assessment & Plan Assessment & Plan (1) Shoulder subluxation, left: Code(s): S43.002A - Unspecified subluxation of left shoulder joint, initial encounter Qualifiers: Encounter type: subsequent encounter Qualified Code(s): S43.002D - Unspecified subluxation of left shoulder joint, subsequent encounter Plan We discussed options which include surgical intervention. Given the fact she continues to have pain and sensation of instability, I would like her to meet with Dr. Hamm to discuss surgical intervention which she is content with. All questions were answered. Patient Instructions: Scribed for Edwin Fulton PA-C, by Quoc Belle certified ophthalmic medical technician, on 03/09/2023 at 12:45 PM EST. I, Edwin Fulton PA-C, have personally reviewed and agree with the information entered by the scribe. Coding Level of Care Code Est Pt Level 3 (75854) Diagnoses Subluxation of left shoulder joint, subsequent encounter S43.002D Encounter type: subsequent encounter
[2023-03-09 12:29] VITALS: BMI 41.2
== END 2023-03-09 13:30 | disposition home or self-care (01) ==
PROVIDERS: PCP Internal Medicine; Visit Provider Physician Assistant
DX: S43.002D Unspecified subluxation of left shoulder joint, subsequent encounter (principal)
CPT/HCPCS: 99213

== ENCOUNTER → 2023-03-09 12:18 | Outpatient (BNVA) | payer OTHER, SELFPAY | PROVIDERS: PCP Internal Medicine; Visit Provider Physician Assistant | DX: S43.002D Unspecified subluxation of left shoulder joint, subsequent encounter (principal) | CPT/HCPCS: 99212 ==

== ENCOUNTER 2023-03-18 10:50 | Outpatient (AMB) | payer OTHER, SELFPAY ==
[2023-03-18 11:05] VITALS: BMI 41.2
--- NOTE | 2023-03-18 11:05 | A.OFFVIS_ITS ---
Intake Vital Signs 03/18/23 11:05 Height 5 ft 1 in Weight 218 lb BMI 41.2 Intake Visit Reasons: OV-Left shoulder pain Discuss SX Intake Note: Laisha is a 52 year old right hand dominant female who presents today to discuss surgery of her left shoulder, she had a shoulder dislocation on 12/19/22. Patient reports that she is having pain and would like to process with any possible surgeries. Allergies cinnamon [CINNAMON] Allergy (Intermediate, Verified 03/18/23 11:05) THROAT SWELLING soy Allergy (Intermediate, Verified 03/18/23 11:05) Itching calcium carbonate [From Tums] Allergy (Unknown, Verified 03/18/23 11:05) Unknown fluoxetine [From PROZAC] Allergy (Unknown, Verified 03/18/23 11:05) UNKNOWN HPI OV-Left shoulder pain Discuss SX HPI Details Laisha is a 52 year old woman who presents to discuss her left shoulder subluxation, DOI: 12/08/22. She complains of ongoing pain that radiates from her shoulder and down her arm. She had an MRI performed at [facility] which she says showed a tear. She is unable to lift her arm above her head as she says she feels like it will come out . She has difficulties with basic activities such as getting dressed or brushing her hair. She is concerned that she may need surgery, and she denies any prior treatment. [facility] Medical History Sleep apnea GERD (gastroesophageal reflux disease) Osteoarthritis of hands, bilateral Osteoarthritis of knees, bilateral Flexor tenosynovitis of finger Bilateral hand pain Depression ESR raised Polyarthralgia Vitamin D deficiency Multinodular thyroid Hypothyroidism Surgical History Hx of colonoscopy Hx of tooth extraction Hx of endoscopy Hx of bilateral breast reduction surgery Family History Father Prostate cancer Hypothyroidism Mother Kidney problem Stroke Brother Kidney problem Social History Household Members: None Household Members Other:: Lives alone Housing: House Are you a primary acute care physical therapist to a significant other at home: No Do you presently have visiting nurse or 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 home services: 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) 75 years or older and lives alone: No Alcohol intake: never Patient Tobacco Use Status: Never used Tobacco e-Cigarette/Vaping Use: Never Used service: No Current occupational status: disabled Review of Systems Const All systems reviewed & are unremarkable except as noted in HPI and below Physical Exam Vital Signs: BMI result Body Mass Index 41.2 Const General: no acute distress, alert and awake Orientation/consciousness: patient oriented x3 HEENT Head: Yes normocephalic and Yes atraumatic Eyes EOM: EOMs intact bilaterally Resp Effort & Inspection: normal respiratory effort and able to speak in complete sentences Cardio Jugular venous distension: no JVD Skin General skin exam: turgor normal Rashes: no rashes Neuro General: patient oriented x3 Extrem Other: Left Shoulder: FUll ROM + O'dee dee's neg empty can Psych Appearance: grossly normal Affect: normal affect Attitude: cooperative Results Reviewed Results Reviewed: I personally reviewed relevant Findings suspicious for SLAP tear Supraspinatus and infraspinatus tendinosis Left shoulder joint effusion with synovitis/debris Assessment & Plan Assessment & Plan (1) Superior labrum [id number] (SLAP) tear of left shoulder: Code(s): S43.432A - Superior glenoid labrum lesion of left shoulder, initial encounter Plan: This is a 52 year old woman with left shoulder SLAP tear, following a subluxation, DOI: 12/08/22. She continues to have pain with daily activity, which radiates down her arm and into her hand at times. She is limited in her overhead activity and feels her shoulder may subluxate again if she reaches overhead. She denies any prior treatment. I discussed her diagnosis and treatment options. I ordered PT and recommend she continue activity as tolerated. (2) Shoulder subluxation, left: Code(s): S43.002A - Unspecified subluxation of left shoulder joint, initial encounter Qualifiers: Encounter type: subsequent encounter Qualified Code(s): S43.002D - Unspecified subluxation of left shoulder joint, subsequent encounter (3) Dislocation, shoulder: Code(s): S43.006A - Unspecified dislocation of unspecified shoulder joint, initial encounter Plan Scribed for Jamal Hamm MD by Uriel Villagomez medical laboratory technologist, on 03/18/23 at 11:25 AM, EST. Orders: Orders PT Evaluation and Treatment 03/18/23 S43.002A - Unspecified subluxation of left shoulder joint, initial encounter, S43.006A - Unspecified dislocation of unspecified shoulder joint, initial encounter, S43.432A - Superior glenoid labrum lesion of left shoulder, initial encounter Coding Level of Care Code Est Pt Level 3 (36191) Diagnoses Superior labrum jjvrmcqj-zs-tyqlhprcy (SLAP) tear of left shoulder S43.432A Subluxation of left shoulder joint, subsequent encounter S43.002D Encounter type: subsequent encounter Dislocation, shoulder S43.006A
== END 2023-03-18 11:40 | disposition home or self-care (01) ==
PROVIDERS: PCP Internal Medicine; Visit Provider Orthopaedic Surgery
DX: S43.432A Superior glenoid labrum lesion of left shoulder, initial encounter (principal); S43.002D Unspecified subluxation of left shoulder joint, subsequent encounter; S43.002A Unspecified subluxation of left shoulder joint, initial encounter
CPT/HCPCS: 99213

== ENCOUNTER → 2023-03-18 10:50 | Outpatient (BNVA) | payer OTHER, SELFPAY | PROVIDERS: PCP Internal Medicine; Visit Provider Orthopaedic Surgery | DX: S43.432A Superior glenoid labrum lesion of left shoulder, initial encounter (principal); S43.002A Unspecified subluxation of left shoulder joint, initial encounter; S43.005A Unspecified dislocation of left shoulder joint, initial encounter | CPT/HCPCS: 99212 ==

== ENCOUNTER 2023-04-17 00:11 | Emergency (ER) | payer OTHER, SELFPAY ==
--- NOTE | 2023-04-17 | ECG_ITS ---
Test Reason : CHEST PAIN Blood Pressure : / mmHG Vent. Rate : 109 BPM Atrial Rate : 109 BPM P-R Int : 142 ms QRS Dur : 074 ms QT Int : 352 ms P-R-T Axes : 034 017 -14 degrees QTc Int : 474 ms Sinus tachycardia Low voltage QRS Anterior leads T-wave inversion in Inferior leads Nonspecific ST abnormality Lateral leads Abnormal ECG When compared with ECG of 06-FEB-2021 04:18, Nonspecific T wave abnormality now evident in Lateral leads ST more depressed Lateral leads Referred By: Generic ED Physician Electronically Signed By:DILAN FERREIRA MD
[2023-04-17 00:13] VITALS: BP 153/82; PULSE 116; RESP 18; TEMP 37.1; O2SAT 99; BMI 44.2
--- NOTE | 2023-04-17 00:43 | ED_ITS ---
HPI - General Adult General Chief complaint: General Medical Stated complaint: gen med Time Seen by Provider: 04/17/23 00:35 Source: patient Mode of arrival: ambulatory Limitations: no limitations History of Present Illness HPI narrative: patient is concerned because she has swollen ankles and her pressure is running high and she is concerned because she only has 1 kidney Related Data Home Medications Medication Instructions Recorded Confirmed albuterol sulfate 90 mcg/actuation 1 inh inhalation Q4H PRN Wheezing 06/05/20 01/03/23 aerosol inhaler bupropion HCl 150 mg 24 hr tablet, 150 mg PO QAM 06/05/20 01/03/23 extended release lorazepam 0.5 mg tablet 0.5 mg PO BID PRN Anxiety 06/05/20 01/03/23 omeprazole 40 mg capsule,delayed 40 mg PO DAILY 06/05/20 01/03/23 release citalopram 10 mg tablet 10 mg PO DAILY 07/28/20 01/03/23 citalopram 20 mg tablet 20 mg PO DAILY 01/26/21 01/03/23 fluticasone propionate 50 1 spray intranasal DAILY 11/25/21 01/03/23 mcg/actuation nasal spray,suspension (Flonase Allergy Relief) lisinopril 10 mg tablet 10 mg PO DAILY 12/22/22 01/03/23 CPAP (CPAP Machine/Device) 01/03/23 01/03/23 amlodipine 10 mg tablet 10 mg PO DAILY 01/03/23 01/03/23 Previous Rx's Medication Instructions Recorded cholecalciferol (vitamin D3) 50 50 mcg PO DAILY 30 days #30 caps 08/12/21 mcg (2,000 unit) capsule levothyroxine 75 mcg tablet 75 mcg PO QAM #30 tabs 08/12/21 (Euthyrox) docusate sodium 100 mg capsule 200 mg (2 x 100 mg) PO BEDTIME #60 04/26/22 (Colace) caps methylcellulose (laxative) 500 mg 500 mg PO BID #60 tabs 04/26/22 tablet (Citrucel) polyethylene glycol 3350 17 17 g PO DAILY #510 grams 04/26/22 gram/dose oral powder (Miralax) hydrocortisone 2.5 % topical cream 1 appl [place] BEDTIME PRN hemorrhoids 12/23/22 with perineal applicator #30 grams (Proctosol HC) methylcellulose (laxative) 500 mg 500 mg PO TID 30 days #90 tabs 12/23/22 tablet (Citrucel) Allergies Allergy/AdvReac Type Severity Reaction Status Date / Time cinnamon [CINNAMON] Allergy Intermediate THROAT Verified 03/18/23 11:05 SWELLING soy Allergy Intermediate Itching Verified 03/18/23 11:05 calcium carbonate [From Tums] Allergy Unknown Unknown Verified 03/18/23 11:05 fluoxetine [From PROZAC] Allergy Unknown UNKNOWN Verified 03/18/23 11:05 Review of Systems 2 Review of Systems: Yes all other systems are reviewed and are negative Neurologic: Denies Sensory deficit (Neuro) [facility] Past Medical History Medical History Sleep apnea GERD (gastroesophageal reflux disease) Osteoarthritis of hands, bilateral Osteoarthritis of knees, bilateral Flexor tenosynovitis of finger Bilateral hand pain Depression ESR raised Polyarthralgia Vitamin D deficiency Multinodular thyroid Hypothyroidism Surgical History Hx of colonoscopy Hx of tooth extraction Hx of endoscopy Hx of bilateral breast reduction surgery Family History Family History Father Prostate cancer Hypothyroidism Mother Kidney problem Stroke Brother Kidney problem Social History Social History Household Members: None Household Members Other:: Lives alone Housing: House Are you a primary long term care phlebotomist to a significant other at home: No Do you presently have visiting nurse or other home services: 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) Alcohol intake: never Patient Tobacco Use Status: Never used Tobacco Smoked in Last 30 Days: No e-Cigarette/Vaping Use: Never Used Use of substances other than those prescribed or required for medical reasons: No Advance Directives: No Advance Directives Information Provided: No Patient : No service: No Current occupational status: disabled Physical Exam ED Vital Signs: Vital Signs - 24 hr 04/17/23 00:13 04/17/23 01:20 Temperature 98.8 F Pulse Rate 116 H 105 H Respiratory Rate 18 18 Blood Pressure 153/82 H 158/77 H Pulse Oximetry 99 98 Oxygen Delivery Method Room Air Room Air BMI result Body Mass Index 44.2 Const Nutritional Appearance: obese Orientation/consciousness: oriented to person and patient oriented x3 Limitations: no limitations HENMT Head: Yes normal to inspection Ears: external ears normal General nose exam: Normal external nose present Mouth: Normal oral and palatal mucosa present and oropharynx normal Throat: Yes posterior oropharynx normal Eyes General: appearance normal, both eyes and all related structures Neck Neck: Yes normal visual inspection Chest Chest palpation & inspection: normal inspection of the chest Resp Auscultation: clear to auscultation bilaterally Cardio Jugular venous distension: no JVD Rate: regular rate Rhythm: regular rhythm Heart sounds: S1 normal heart sound present and S2 normal heart sound present GI Inspection: Yes normal to inspection Palpation (GI): Soft to palpation, nontender and No hepatosplenomegaly present Auscultation: normal bowel sounds General: Yes no CVA tenderness Back/Spine/Pelvis Back: no CVA tenderness Skin General skin exam: no rashes or lesions noted Neuro General: oriented to person and patient oriented x3 Cranial nerves: Yes CN's II-XII intact bilaterally Motor exam (neuro): 5/5 motor strength present throughout Sensory Exam: No Sensory deficit (Neuro) Extrem Other: patient with tight anklet socks with mild edema above her socks Psych Appearance: grossly normal Course Reevaluation(s) Reevaluation #1: patient with a slight bump in her creatinine will have her follow up with her PMD for her elevated BP and her bump in her creatinine Time: 01:36 Medications Administered Discontinued Medications Generic Name Dose Route Start Last Admin Trade Name Freq PRN Reason Stop Dose Admin Amlodipine Besylate 10 mg 04/17/23 00:42 04/17/23 00:53 Amlodipine Besylate 10 Mg Tablet PO 04/17/23 00:43 10 mg ONCE ONE Administration Protocol Medical Decision Making Differential Diagnosis Differential Diagnoses: The differential diagnosis associated with the presentation includes (hypertensive urgency, renal failure, chf were all considered) Admission/Observation Consideration of admission/observation: Escalation of care including admission/observation considered (upon arrival patient was considered for admission) Lab Data MDM Lab Attestation statement: I reviewed the patient's lab results. (slight bump in creatinine, no protein in urine) 04/17/23 00:46 04/17/23 00:46 Labs: Lab Results 04/17/23 04/17/23 Range/Units 00:46 01:20 WBC 10.2 (4.8-10.8) X10*3/uL RBC 3.97 L (4.20-5.50) X10*6/uL Hgb 11.3 L (12.0-16.0) g/dl Hct 34.5 L (37.0-47.0) % MCV 86.9 (80.0-98.0) fL MCH 28.5 (27.0-33.0) pg MCHC 32.8 (31.0-35.0) g/dl RDW 12.4 (11.0-16.0) % Plt Count 339 (160-400) X10*3/uL MPV 8.9 L (9.4-12.3) fL Immature Gran % (Auto) 0.3 (0.0-0.4) % Neut % (Auto) 62.1 (45-73) % Lymph % (Auto) 27.9 (20-40) % [place] % (Auto) 7.9 (2-11) % Eos % (Auto) 1.3 (0-4) % Baso % (Auto) 0.5 (0-2) % Lymph # (Auto) 2.8 (1.2-4.9) X10*3/uL [place] # (Auto) 0.8 (0.1-1.2) X10*3/uL Eos # (Auto) 0.1 (0.0-0.4) X10*3/uL Baso # (Auto) 0.1 (0.0-0.2) X10*3/uL Abs Immat Gran (auto) 0.03 (0.00-0.03) X10*3/uL Absolute Neuts (auto) 6.3 (2.0-8.3) x10*3/uL Absolute Nucleated RBC 0.000 (0.0-0.012) X10*3/uL Nucleated RBC % (auto) 0.0 (0.0-0.2) /100WBC Sodium 139 (135-145) mmol/L Potassium 3.6 (3.3-5.1) mmol/L Chloride 106 (96-108) mmol/L Carbon Dioxide 23 (22-29) mmol/L Anion Gap 14 (12-20) BUN 25 H (9-16) mg/dL Creatinine 1.38 (0.5-1.4) mg/dL Estim Creat Clear Calc 54.1 Estimated GFR 40 Random Glucose 139 H (60-115) mg/dL Calcium 9.5 D (8.4-10.2) mg/dL Total Bilirubin 0.2 (0.0-1.0) mg/dL Direct Bilirubin < 0.2 (0.0-0.5) mg/dL AST 20 (5-31) U/L ALT 16 (0-31) U/L Alkaline Phosphatase 79 (39-117) U/L Troponin I High Sens < 2.7 (<3.5-17.0) ng/L B-Natriuretic Peptide 44 (<100) pg/mL Total Protein 7.8 (6.5-8.0) g/dL Albumin 3.9 (3.5-5.0) g/dL Lipase 29 (8-78) U/L Urine Color Yellow Urine Appearance Clear Urine pH 6.0 (5.0-9.0) Ur Specific [place] <= 1.005 (1.005-1.025) Urine Protein Negative (Neg-Trace) mg/dL Urine Glucose (UA) Negative (Negative) mg/dL Urine Ketones Negative (Negative) mg/dL Urine Blood Negative (Negative) Urine Nitrite Negative (Negative) Ur Leukocyte Esterase Trace H (Negative) Urine RBC 0-2 (0-2) /HPF Urine WBC 0-5 (0-5) /HPF Ur Squamous Epith Cells 0-2 (0-2) /HPF Urine Bacteria None Seen (None Seen) Hyaline Casts 0-2 (0-2) /LPF Chronic Conditions Patient?s care impacted by: Hypertension and Other (one kidney) Social Determinants Patient?s care significantly limited by Social Determinants of Health including: Other Social Determinant of Health (psychiatric illness) Discharge Plan Discharge Clinical Impression: Hypertension, Acute renal insufficiency Patient Disposition: Home, Self-Care Instructions: Chronic Hypertension (ED), Impaired Kidney Function (ED) Prescriptions: No Action levothyroxine [Euthyrox] 75 mcg tablet 75 mcg PO QAM Qty: 30 11RF cholecalciferol (vitamin D3) 50 mcg (2,000 unit) capsule 50 mcg PO DAILY 30 Days Qty: 30 11RF Citrucel 500 mg tablet 500 mg PO TID 30 Days Qty: 90 5RF hydrocortisone [Proctosol HC] 2.5 % cream with perineal applicator 1 appl AK BEDTIME PRN (Reason: hemorrhoids) Qty: 30 3RF citalopram 10 mg tablet 10 mg PO DAILY bupropion HCl 150 mg tablet extended release 24 hr 150 mg PO QAM lorazepam 0.5 mg tablet 0.5 mg PO BID PRN (Reason: Anxiety) omeprazole 40 mg capsule,delayed release(DR/EC) 40 mg PO DAILY albuterol sulfate 90 mcg/actuation HFA aerosol inhaler 1 inh inhalation Q4H PRN (Reason: Wheezing) citalopram 20 mg tablet 20 mg PO DAILY docusate sodium [Colace] 100 mg capsule 200 mg PO BEDTIME Qty: 60 5RF Citrucel 500 mg tablet 500 mg PO BID Qty: 60 5RF polyethylene glycol 3350 [Miralax] 17 gram/dose powder 17 g PO DAILY Qty: 510 6RF fluticasone propionate [Flonase Allergy Relief] 50 mcg/actuation spray,suspension 1 spray intranasal DAILY Rx Instructions: administer into each nostril lisinopril 10 mg tablet 10 mg PO DAILY amlodipine 10 mg tablet 10 mg PO DAILY (DME) CPAP Machine/Device Device See Rx Instructions .Route Rx Instructions: As directed Referrals: Olamide Chandler MD [Primary Care Provider] - 3 days
[2023-04-17 00:52] LABS: MANUAL DIFF FLAG NO
[2023-04-17] MEDS: amLODIPine Besylate 10 MG TABLET PO (00:53)
[2023-04-17 00:54] LABS: Basophils Absolute Auto 0.1 X10*3/uL (0.0-0.2); Basophils Percent Auto 0.5 % (0-2); Eosinophils Absolute Auto 0.1 X10*3/uL (0.0-0.4); Eosinophils Percent Auto 1.3 % (0-4); Hematocrit 34.5 % (37.0-47.0); Hemoglobin 11.3 g/dl (12.0-16.0); Imm Gran Abs Auto 0.03 X10*3/uL (0.00-0.03); Imm Gran Pct Auto 0.3 % (0.0-0.4); Lymphocytes Absolute Auto 2.8 X10*3/uL (1.2-4.9); Lymphocytes Percent Auto 27.9 % (20-40); Mean Corpuscular HGB Conc 32.8 g/dl (31.0-35.0); Mean Corpuscular Hemoglobin 28.5 pg (27.0-33.0); Mean Corpuscular Volume 86.9 fL (80.0-98.0); Mean Platelet Volume 8.9 fL (9.4-12.3); Monocytes Absolute Auto 0.8 X10*3/uL (0.1-1.2); Monocytes Percent Auto 7.9 % (2-11); Neutrophils Absolute Auto 6.3 x10*3/uL (2.0-8.3); Neutrophils Percent Auto 62.1 % (45-73); Platelet Count 339 X10*3/uL (160-400); Red Blood Count 3.97 X10*6/uL (4.20-5.50); Red Cell Distribution Width 12.4 % (11.0-16.0); White Blood Count 10.2 X10*3/uL (4.8-10.8)
[2023-04-17 01:08] LABS: Alanine Aminotransferase 16 U/L (0-31); Albumin Level 3.9 g/dL (3.5-5.0); Alkaline Phosphatase 79 U/L (39-117); Anion Gap 14 (12-20); Aspartate Amino Transferase 20 U/L (5-31); Bilirubin Direct < 0.2 mg/dL (0.0-0.5); Bilirubin Total 0.2 mg/dL (0.0-1.0); Blood Urea Nitrogen 25 mg/dL (9-16); Calcium 9.5 mg/dL (8.4-10.2); Carbon Dioxide 23 mmol/L (22-29); Chloride 106 mmol/L (96-108); Creatinine Clr Calc Pharmacy 54.1; Estimated Glomerular Filt Rate 40; Glucose Random 139 mg/dL (60-115); Lipase 29 U/L (8-78); Potassium 3.6 mmol/L (3.3-5.1); Sodium 139 mmol/L (135-145); Total Protein 7.8 g/dL (6.5-8.0)
[2023-04-17 01:17] LABS: B Type Natriuretic Peptide 44 pg/mL (<100)
[2023-04-17 01:18] LABS: Troponin-I High Sensitivity < 2.7 ng/L (<3.5-17.0)
[2023-04-17 01:20] VITALS: BP 158/77; PULSE 105; RESP 18; O2SAT 98
[2023-04-17 01:26] LABS: Appearance Urine Clear; Color Urine Yellow; Glucose Urine UA Negative (Negative); Leukocyte Esterase Urine Trace (Negative); Nitrite Urine Negative (Negative); Specific Gravity - Urine <= 1.005 (1.005-1.025); UMIC TRIGGER UACC YES; Urine Blood Negative (Negative); Urine Ketones Negative (Negative); Urine Protein Negative (Neg-Trace)
[2023-04-17 01:38] LABS: Bacteria Urine None Seen (None Seen); Hyaline Casts Urine 0-2 /LPF (0-2); RBC Urine 0-2 /HPF (0-2); Squamous Epithelial Cell Urine 0-2 /HPF (0-2); WBC Urine 0-5 /HPF (0-5)
== END 2023-04-17 02:06 | disposition home or self-care (01) ==
PROVIDERS: Emergency Provider Emergency Medicine; PCP Internal Medicine
DX: N28.9 Disorder of kidney and ureter, unspecified (principal); I10 Essential (primary) hypertension; R06.02 Shortness of breath; R07.89 Other chest pain; R00.0 Tachycardia, unspecified; Z79.899 Other long term (current) drug therapy
CPT/HCPCS: 36415; 80048; 80076; 81001; 83690; 83880; 84484; 85025; 93005; 99284

== ENCOUNTER 2023-04-26 08:02 | Outpatient (REF) | payer OTHER, SELFPAY ==
[2023-04-26 11:11] LABS: MANUAL DIFF FLAG NO
[2023-04-26 11:35] LABS: Estimated Average Glucose 117 mg/dL; Hemoglobin A1c % 5.7 % (<6.0)
[2023-04-26 11:42] LABS: Alanine Aminotransferase 18 U/L (0-31); Albumin Level 3.8 g/dL (3.5-5.0); Alkaline Phosphatase 79 U/L (39-117); Anion Gap 12 (12-20); Aspartate Amino Transferase 19 U/L (5-31); Bilirubin Direct 0.1 mg/dL (0.0-0.5); Bilirubin Total 0.3 mg/dL (0.0-1.0); Blood Urea Nitrogen 12 mg/dL (9-16); Calcium 9.3 mg/dL (8.4-10.2); Carbon Dioxide 28 mmol/L (22-29); Chloride 105 mmol/L (96-108); Cholesterol 167 mg/dL (<200); Estimated Glomerular Filt Rate > 60; Glucose Random 106 mg/dL (60-115); HDL Cholesterol 44 mg/dL (>40); LDL Cholesterol Calculated 112 mg/dL (<100); Potassium 3.9 mmol/L (3.3-5.1); Sodium 141 mmol/L (135-145); Total Protein 7.7 g/dL (6.5-8.0); Triglycerides 59 mg/dL (<150)
[2023-04-26 12:11] LABS: Basophils Percent Auto 0.5 % (0-2); Eosinophils Absolute Auto 0.1 X10*3/uL (0.0-0.4); Eosinophils Percent Auto 0.8 % (0-4); Hematocrit 35.6 % (37.0-47.0); Hemoglobin 11.3 g/dl (12.0-16.0); Imm Gran Abs Auto 0.08 X10*3/uL (0.00-0.03); Lymphocytes Absolute Auto 2.5 X10*3/uL (1.2-4.9); Lymphocytes Percent Auto 29.6 % (20-40); Mean Corpuscular HGB Conc 31.7 g/dl (31.0-35.0); Mean Corpuscular Volume 88.3 fL (80.0-98.0); Mean Platelet Volume 9.1 fL (9.4-12.3); Monocytes Absolute Auto 0.6 X10*3/uL (0.1-1.2); Monocytes Percent Auto 7.2 % (2-11); Neutrophils Absolute Auto 5.1 x10*3/uL (2.0-8.3); Neutrophils Percent Auto 60.9 % (45-73); Platelet Count 405 X10*3/uL (160-400); Red Blood Count 4.03 X10*6/uL (4.20-5.50); Red Cell Distribution Width 12.5 % (11.0-16.0); White Blood Count 8.4 X10*3/uL (4.8-10.8)
== END 2023-04-26 08:03 | disposition home or self-care (01) ==
LOC: HO.HHCL 08:02
PROVIDERS: Visit Provider Internal Medicine
DX: I10 Essential (primary) hypertension (principal); R73.03 Prediabetes
CPT/HCPCS: 36415; 80048; 80061; 80076; 83036; 85025

== ENCOUNTER 2023-07-12 10:00 | Outpatient (RCR) | payer OTHER, SELFPAY ==
--- NOTE | 2023-05-09 13:31 | MHC.PT.EP ---
[facility] [place] Office [place] [facility] [place] Office [address] Shikha Martin [address] [phone] F: [phone] F: [phone] F: [phone] F: [phone] Physical Therapy Plan of Care Date of Evaluation: 05/09/23 Date of Surgery: Diagnosis: L shoulder dislocation with superior glenoid labrum lesion Assessment: Pt is a 52yo female s/p dislocation of L shoulder, found to have SLAP lesion, with limited mobility. Skilled PT indicated to improve her posture and body mechanics to enable her shoulder to move properly, address ROM, promote periscap strength for reduced risk of re-dislocation. Pt is motivated to participate and is in agreement with POC. Frequency and Duration: The patient will be seen 2x/week x 4 weeks Short Term Goals: 1. In 2 weeks PROM of L shoulder flexion and abduction improved to 150 degrees. 2. In 2 weeks, patient will be I with AAROM and SRD exercises for HEP. 3. In 2 weeks, pt will be able to maintain shoulder depression during standing AROM elevation to 75 degrees. Wan Support Specialist Goals: 1. In 4 weeks, patient will be able to reach cup from overhead shelf with L UE, pain <3/10. 2. In 4 weeks, patient will use proper body mechanics with SRD during UB dressing. 3. In 4 weeks, improve middle trap and rhomboid strength to 4/5 to improve stability of L UE. Treatment Plan: Modalities to reduce pain, spasms and effusion. Manual therapy to restore motion and function. Therapeutic exercise to improve strength and flexibility. Neuromuscular re-education for posture and balance. Therapeutic activities to return to functional activities of daily living. Electronically signed by: Rosana Hernández PT, DPT Please sign and return to therapist. Thank you for your referral.
--- NOTE | 2023-08-05 09:27 | MHC.PT.DC ---
[facility] [place] [facility] [place] Office [place] Office [address] Shikha Martin 140 [facility] [phone] F: [phone] F: [phone] F: [phone] F: [phone] Physical Therapy Discharge Report Diagnosis: L shoulder dislocation with superior glenoid labrum lesion Date of Surgery: DOI 12/19/22 Date of Evaluation: 05/09/23 Date of Discharge: 08/05/23 Treatments to Date: 9 Cancellations to Date: 3 No Shows to Date: 3 Discharge Status: Improved Function Independent with HEP Visit Non-compliance Discharge Summary: Pt participated in 9 PT treatment sessions for L shoulder stabilization after traumatic dislocation injury. Pt improved her ROM, periscap strength, RTC strength, and functional use of UE. However, she did not attend her last 3 scheduled appointments to finalize HEP, and will be D/C'd due to visit non-compliance. Electronically signed by: Rosana Hernández PT, DPT Please sign and return to therapist. Thank you for your referral.
== END 2023-08-05 09:29 | disposition home or self-care (01) ==
LOC: HO.PT 10:00
PROVIDERS: PCP Internal Medicine; Visit Provider Orthopaedic Surgery
DX: S43.432A Superior glenoid labrum lesion of left shoulder, initial encounter (principal); S43.002A Unspecified subluxation of left shoulder joint, initial encounter
CPT/HCPCS: 97110; 97140; 97162; 97530

== ENCOUNTER 2023-08-05 09:50 | Outpatient (REF) | payer OTHER, SELFPAY ==
[2023-08-05 11:57] LABS: TSH reflex Free T4 2.35 uIU/mL (0.32-4.0)
== END 2023-08-05 09:51 | disposition home or self-care (01) ==
LOC: HO.HHCL 09:50
PROVIDERS: Visit Provider Internal Medicine
DX: E03.9 Hypothyroidism, unspecified (principal)
CPT/HCPCS: 36415; 84443

== ENCOUNTER 2023-09-15 08:38 | Outpatient (REF) | payer OTHER, SELFPAY | END 2023-09-15 08:39 | disposition home or self-care (01) | LOC: HO.MAMMO 08:38 | PROVIDERS: PCP Internal Medicine; Visit Provider Internal Medicine | DX: Z12.31 Encounter for screening mammogram for malignant neoplasm of breast (principal) | CPT/HCPCS: 77063; 77067 ==

== ENCOUNTER → 2023-09-15 09:00 | Outpatient (BNV) | payer OTHER, SELFPAY | PROVIDERS: PCP Internal Medicine; Visit Provider Radiology Diagnostic Radiology | DX: Z12.31 Encounter for screening mammogram for malignant neoplasm of breast (principal) | CPT/HCPCS: 77063; 77067 ==

== ENCOUNTER 2023-09-28 07:16 | Outpatient (REF) | payer OTHER, SELFPAY ==
--- NOTE | ~2023-09-28 | CT_ITS ---
EXAMINATION: CT HEAD WITHOUT CONTRAST CLINICAL INFORMATION: Left-sided headache, left ear discomfort, benign paroxysmal positional vertigo COMPARISON: CT brain on 04/10/2020 TECHNIQUE: Contiguous axial imaging was performed from the skull base to vertex without intravenous administration of contrast. This CT examination was performed using dose optimization techniques as appropriate, variously including the following: *Automated exposure control *Adjustment of mA and/or kV according to patient size (this includes techniques or standardized protocols for targeted exams where dose is matched to indication/reason for exam; i.e. extremities or head) *Use of iterative reconstruction technique DLP: 732 mGy-cm FINDINGS: Ventricles, sulci and cisterns are normal. There is no midline shift, no abnormal intra- or extra- axial fluid accumulation. Rosas and white matter differentiation is normal. Bone window images show no evidence of skull fracture. A persistent large left posterior lateral parietal calvarium crescent-shaped bony protuberance from the outer table, with radiolucent center is seen, measuring 5.1 cm in AP diameter, 1.7 cm in width, 4.0 cm in vertical height A polypoid mucosal lesion is seen in posterior right maxillary sinus measuring 0.9 x 1.[address]/CT head/brain wo IV con IMPRESSION: 1. Unchanged Normal CT scan of the brain. 2. No intracranial hemorrhage or skull fracture is seen. 3. No evidence of space occupying lesion could be found. 4. The current plain CT scan of the brain shows no diagnostic evidence of acute cerebral infarction. 5. No interval change in size of the left parietal outer table crescent-shaped protruding bone lesion, compatible with stable chronic ossified cephalhematoma.
== END 2023-09-28 07:17 | disposition home or self-care (01) ==
LOC: HO.CT 07:16
PROVIDERS: PCP Internal Medicine; Visit Provider Emergency Medicine
DX: H81.10 Benign paroxysmal vertigo, unspecified ear (principal); D32.9 Benign neoplasm of meninges, unspecified; H92.02 Otalgia, left ear; R51.9 Headache, unspecified
CPT/HCPCS: 70450

== ENCOUNTER 2024-01-31 09:14 | Outpatient (REF) | payer OTHER, SELFPAY ==
[2024-01-31 12:47] LABS: TSH reflex Free T4 1.03 uIU/mL (0.32-4.0)
== END 2024-01-31 09:15 | disposition home or self-care (01) ==
LOC: HO.LAB 09:14
PROVIDERS: PCP Internal Medicine; Visit Provider Student in an Organized Health Care Education/Training Program
DX: E03.9 Hypothyroidism, unspecified (principal); E04.2 Nontoxic multinodular goiter; E66.01 Morbid (severe) obesity due to excess calories; Z68.41 Body mass index [BMI] 40.0-44.9, adult; E06.3 Autoimmune thyroiditis
CPT/HCPCS: 36415; 84443; 99212

== ENCOUNTER 2024-01-31 09:14 | Outpatient (AMB) | payer OTHER, SELFPAY ==
--- NOTE | 2024-01-31 09:22 | MHC.OFFVIS ---
Vital Signs 01/31/24 09:23 Height 5 ft 1 in Weight 231 lb 7.766 oz BMI 43.7 BP 100/78 Blood Pressure Location Lt brachial Position Sitting Pulse 71 Pulse Source Pulse Oximeter Intake Visit Reasons: Hypothyroidism/LVM Intake Note: Patient present today for Hypothyroidism office visit. Concrete Bucket Unloader Required: No Accompanied by: Self / Same As Patient Allergies cinnamon [CINNAMON] Allergy (Intermediate, Verified 01/31/24 09:29) THROAT SWELLING soy Allergy (Intermediate, Verified 01/31/24 09:29) Itching calcium carbonate [From Tums] Allergy (Unknown, Verified 01/31/24 09:29) Unknown fluoxetine [From PROZAC] Allergy (Unknown, Verified 01/31/24 09:29) UNKNOWN Medication List - Last Reconciled 01/31/24 by Mirtha Angulo MD albuterol sulfate 90 mcg/actuation 1 inh inhalation Q4H PRN bupropion HCl XL 150 mg PO QAM carvedilol 3.125 mg PO BID cholecalciferol (vitamin D3) 50 mcg PO DAILY 30 days citalopram 10 mg PO DAILY citalopram 20 mg PO DAILY CPAP (CPAP Machine/Device) As directed docusate sodium (Colace) 200 mg (2 x 100 mg) PO BEDTIME fluticasone propionate 50 mcg/actuation (Flonase Allergy Relief) 1 spray intranasal DAILY hydrocortisone 2.5% (Proctosol HC) 1 appl DC BEDTIME PRN levothyroxine (Euthyrox) 75 mcg PO QAM lorazepam 0.5 mg PO BID PRN methylcellulose (laxative) (Citrucel) 500 mg PO BID methylcellulose (laxative) (Citrucel) 500 mg PO TID 30 days omeprazole 40 mg PO DAILY triamcinolone acetonide 0.1% 1 appl topical BID-TID HPI Comments Details: 51 YO F with PMHx hypothyroidism and a NTMNG who is seen in F/U for MNG. She was previously seeing Dr. Guillen at our practice, last office visit January 2022. Prior HPI She has a long history of hypothyroidism (more than 20 years). TPO antibodies were negative, but TG antibodies were mildly positive. Currently She remains on Levothyroxine 75 mcg PO daily which she takes correctly. Has constipation, colace helps. No skin or hair changes. Periods are irregular, comes every 4-6 months, perimenopausal. Complaining of hot flahses. Not interested in HRT. No cold intolerance. Complaining of excessive tiredness. HAs been having weight fluctuations, lost 60 lbs with help of weight loss program but then gained it back, and most recently has been gaining weight weight gradually per patient TSH normal Jul 2023 She also had a multinodular thyroid. She presented 06/07/19 for FNA biopsy of her dominant nodules, but US completed at that time revealed a heterogenous gland consistent with Giacomo's disease, and only pseudonodules, no true thyroid nodules. Denies any family history of thyroid cancer. no history of head or neck radiation. Desnies any compressive symptom. Thyroid US: 02/27/19 Right Thyroid Lobe: 4.6 x 2.0 x 1.3 cm, volume 6.0 mL. Previously 5.2 x 1.6 x 1.7 cm, volume 7.4 mL. Parenchyma: The gland echotexture is heterogeneous. Thyroid vascularity is normal. Left Thyroid Lobe: 3.9 x 1.2 x 1.2 cm, volume 3.1 mL. Previously 4.6 x 1.6 x 1.3 cm, volume 5.2 mL. Parenchyma: The gland echotexture is heterogeneous. Thyroid vascularity is normal. Isthmus: 0.5 cm in maximum AP dimension. Previously 0.3 cm. RIGHT THYROID LOBE: There is 1 nodule seen. 1. Location: Inferior Size: 1.0 x 0.8 x 0.6 cm. Previous: Not seen, new. Nodule characteristics: Hypoechoic, irregular margin, no calcification and no intranodular flow. ISTHMUS: There is 1 nodule seen versus area of gland heterogeneity. 1. Location: Isthmus. Size: 0.4 x 0.4 x 0.3 cm. Previous: 1.1 x 0.2 x 0.6 cm. Nodule characteristics: Hypoechoic and cystic, smooth margin, no calcification and no intranodular flow. LEFT THYROID LOBE: No nodules. NODES: No lymphadenopathy is seen in the tissue surrounding the thyroid gland. Has never had biopsy [facility] Medical History Sleep apnea GERD (gastroesophageal reflux disease) Osteoarthritis of hands, bilateral Osteoarthritis of knees, bilateral Flexor tenosynovitis of finger Bilateral hand pain Depression ESR raised Polyarthralgia Vitamin D deficiency Multinodular thyroid Hypothyroidism Surgical History Hx of colonoscopy Hx of tooth extraction Hx of endoscopy Hx of bilateral breast reduction surgery Family History Father Prostate cancer Hypothyroidism Mother Kidney problem Stroke Brother Kidney problem Social History Household Members: None Household Members Other:: Lives alone Housing: House Are you a primary acute care assistant to a significant other at home: No Do you presently have visiting nurse or other home services: Yes (CENTRAL PROCESSING TECH) 75 years or older and lives alone: No Alcohol intake: never Patient Tobacco Use Status: Never used Tobacco e-Cigarette/Vaping Use: Never Used service: No Current occupational status: disabled Review of Systems Const Details: Constitutional: no fevers, chills or weight loss HEENT: no changes in vision Cardiac: No chest pain, discomfort or palpitations. Pulmonary: No SOB GI:No abdominal pain, no nausea or vomiting, no anorexia, no blood in stool : no burning micturition, dysuria or increase in urinary frequency Neurologic: No dizziness, no weakness in extremities MSK: no back pain or joint stiffness Physical Exam Vital Signs: Last Vital Signs Pulse 71 01/31/24 09:23 BP 100/78 01/31/24 09:23 BMI result Body Mass Index 43.7 Const Other: General: sitting comfortably in bed in no acute distress HEENT: normocephalic/atraumatic, EOM intact, moist oral mucosa Neck: supple, symmetrical, no thyromegaly , no dorsocervical or supraclavicular fat pads Cardiac: normal heart sounds Pulm: normal breath sounds B/L, no added breath sounds Abd: not distended, no tenderness Extremities: no edema, no signs of myxedema Neuro: AAO x3, Speech: normal, no facial droop, moving all 4 extremities Skin: no rash Results Reviewed Results Reviewed: Laboratory Tests 08/05/23 09:54 TSH 2.35 Assessment & Plan Assessment & Plan (1) Hypothyroidism: Comment: 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 She remains on Levothyroxine 75 mcg PO daily. TSH was normal Jul 2023 but patient complaining of continued tiredness. She is also having hot flashes though she is perimenopausal. She is not interested in HRT due to increased burden of medications. We will repeat htyroid labs. I advised her to have these completed today and I will call her with dose adjustments if needed. She was previously advised to followup with her PCP however she feels uncomfortable with that plan and would like to follow up with us for hypothyroidism. Will arrange annual follow up . Advised to call before appointment for thyroid lab orders. All of her questions were answered. She is in agreement with this plan of care. Code(s): E03.9 - Hypothyroidism, unspecified Category: Medical Qualifiers: Hypothyroidism type: unspecified Qualified Code(s): E03.9 - Hypothyroidism, unspecified Plan: -Ordered TSH wih reflex free t4 -Continue levothyroxine 75 mcg daily prescribed by PCP -Annual follow up (2) Multinodular thyroid: Comment: Patient with a diffusely heterogenous gland consistent with giacomo's disease. Only pseudonodules, no true nodules present per previous notes. These do not contain an increased risk of thyroid cancer. No indication to repeat her thyroid US at this time, plan was to follow clinically. Exam unremarkable today, no compressive symptoms. Code(s): E04.2 - Nontoxic multinodular goiter Category: Medical Plan: see above. (3) Obesity: Comment: Patient with BMI 43.7 kg/m2 with history of sleep apnea. Lost 60 lbs one year back with lifestyle intervention in conjunction with weight loss clinic. Advised lifestyle intervention with calorie deficit maintenance and increased exercise 150 mins a week. Code(s): E66.9 - Obesity, unspecified Category: Medical Qualifiers: Obesity classification: adult class 3 (BMI >= 40) Serious obesity comorbidity presence: without serious comorbidity Body mass index: BMI 40.0-44.9 Qualified Code(s): E66.01 - Morbid (severe) obesity due to excess calories; Z68.41 - Body mass index [BMI] 40.0-44.9, adult Plan: Advised lifestyle intervention with calorie deficit maintenance and increased exercise 150 mins a week. Orders: Orders TSH reflex Free T4 Today E03.9 - Hypothyroidism, unspecified Patient Instructions: Do labs no fasting needed My fitness pal or lose it are apps on phone that are free and help with documentation of food log Consider talking to your engineering research manager about hot flashes if interested in therapy Coding Level of Care Code Est Pt Level 4 (34446) Diagnoses Hypothyroidism, unspecified type E03.9 Hypothyroidism type: unspecified Multinodular thyroid E04.2 Class 3 severe obesity due to excess calories without serious comorbidity with body mass index (BMI) of 40.0 to 44.9 in adult E66.01; Z68.41 Obesity classification: adult class 3 (BMI >= 40) Serious obesity comorbidity presence: without serious comorbidity Body mass index: BMI 40.0-44.9
[2024-01-31 09:23] VITALS: BP 100/78; PULSE 71; BMI 43.7
== END 2024-01-31 10:04 | disposition home or self-care (01) ==
PROVIDERS: PCP Internal Medicine; Visit Provider Student in an Organized Health Care Education/Training Program
DX: E06.3 Autoimmune thyroiditis (principal); E04.2 Nontoxic multinodular goiter; E66.01 Morbid (severe) obesity due to excess calories; Z68.41 Body mass index [BMI] 40.0-44.9, adult
CPT/HCPCS: 99214

== ENCOUNTER 2024-03-29 09:46 | Outpatient (REF) | payer OTHER, SELFPAY ==
[2024-03-29 12:01] LABS: Estimated Average Glucose 126 mg/dL; Hemoglobin A1C 129.1051 umol/L; Total Hemoglobin (HGBA1C) 3037.4612 umol/L
[2024-03-29 12:13] LABS: Alanine Aminotransferase 13 U/L (0-31); Albumin Level 3.8 g/dL (3.5-5.0); Alkaline Phosphatase 75 U/L (39-117); Anion Gap 10 (12-20); Aspartate Amino Transferase 17 U/L (5-31); Bilirubin Total 0.4 mg/dL (0.0-1.0); Blood Urea Nitrogen 13 mg/dL (9-16); Calcium 8.9 mg/dL (8.4-10.2); Carbon Dioxide 27 mmol/L (22-29); Chloride 106 mmol/L (96-108); Cholesterol 168 mg/dL (<200); Estimated Glomerular Filt Rate > 60; Glucose Random 116 mg/dL (60-115); HDL Cholesterol 44 mg/dL (>40); LDL Cholesterol Calculated 107 mg/dL (<100); Potassium 3.7 mmol/L (3.3-5.1); Sodium 139 mmol/L (135-145); Total Protein 7.3 g/dL (6.5-8.0); Triglycerides 89 mg/dL (<150)
[2024-03-29 12:15] LABS: Vitamin D 25-OH Total 43.2 ng/mL (>30)
[2024-03-29 12:30] LABS: Reflex LDLD? No
== END 2024-03-29 09:47 | disposition home or self-care (01) ==
LOC: HO.HHCL 09:46
PROVIDERS: Visit Provider Internal Medicine
DX: I10 Essential (primary) hypertension (principal); Z13.1 Encounter for screening for diabetes mellitus
CPT/HCPCS: 36415; 80053; 80061; 82306; 83036

== ENCOUNTER 2024-05-07 08:34 | Outpatient (AMB) | payer OTHER, SELFPAY ==
--- NOTE | 2024-05-07 08:51 | MHC.OFFVIS ---
Intake Visit Reasons: Mixed stress and urge urinary incontinence Intake Note: New Patient presents for initial visit for incontinence Urology Medications: none Blood Thinner: none PVR: 0ml's Nurse Care Manager Required: No Accompanied by: Self / Same As Patient Allergies cinnamon [CINNAMON] Allergy (Intermediate, Verified 05/07/24 09:26) THROAT SWELLING soy Allergy (Intermediate, Verified 05/07/24 09:26) Itching calcium carbonate [From Tums] Allergy (Unknown, Verified 05/07/24 09:26) Unknown fluoxetine [From PROZAC] Allergy (Unknown, Verified 05/07/24 09:26) UNKNOWN Medication List - Last Reconciled 05/07/24 by JASPREET Mendoza albuterol sulfate 90 mcg/actuation 1 inh inhalation Q4H PRN bupropion HCl XL 150 mg PO QAM carvedilol 3.125 mg PO BID cholecalciferol (vitamin D3) 50 mcg PO DAILY 30 days citalopram 10 mg PO DAILY citalopram 20 mg PO DAILY CPAP (CPAP Machine/Device) As directed docusate sodium (Colace) 200 mg (2 x 100 mg) PO BEDTIME fluticasone propionate 50 mcg/actuation (Flonase Allergy Relief) 1 spray intranasal DAILY hydrocortisone 2.5% (Proctosol HC) 1 appl WI BEDTIME PRN levothyroxine (Euthyrox) 75 mcg PO QAM lorazepam 0.5 mg PO BID PRN methylcellulose (laxative) (Citrucel) 500 mg PO BID methylcellulose (laxative) (Citrucel) 500 mg PO TID 30 days omeprazole 40 mg PO DAILY triamcinolone acetonide 0.1% 1 appl topical BID-TID HPI Comments Details: Laisha is a very pleasant 53-year-old female patient of . She has a past medical history of sleep apnea, GERD, arthritis of bilateral hands and knees, depression, polyarthralgia, vitamin-D deficiency, and hypothyroidism. She presents to the office today as a new patient for ongoing urinary dribbling as well as bladder pressure. In discussion with the patient today she reports symptoms have been present for a few months. She reports noting urinary dribbling and bladder pressure with sense of urgency. She otherwise denies nocturia, hematuria, dysuria, foul smelling urine, changes to urinary stream, flank pain, fever, and or chills. In office urinalysis results reviewed with the patient today. She does report a history of solitary kidney as she was only born with 1 kidney. She reports following up with Dr. 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 She reports her solitary kidney is an enlarged kidney. When asked she denies any previous history of and or labors. We discussed bladder triggers/irritants. We discussed further treatment options to include pelvic floor therapy verses trial of medication verses further workup such as in office cystoscopy and or urodynamics. Will obtain retroperitoneal ultrasound for further assessment evaluation. She otherwise offers no other issues or concerns at this time. [facility] Medical History Sleep apnea GERD (gastroesophageal reflux disease) Osteoarthritis of hands, bilateral Osteoarthritis of knees, bilateral Flexor tenosynovitis of finger Bilateral hand pain Depression ESR raised Polyarthralgia Vitamin D deficiency Multinodular thyroid Hypothyroidism Surgical History Hx of colonoscopy Hx of tooth extraction Hx of endoscopy Hx of bilateral breast reduction surgery Family History Father Prostate cancer Hypothyroidism Mother Kidney problem Stroke Brother Kidney problem Social History Household Members: None Household Members Other:: Lives alone Housing: House Are you a primary patient care nursing assistant to a significant other at home: No Do you presently have visiting nurse or other home services: Yes (SECURITY SYSTEM TECHNICIAN) 75 years or older and lives alone: No Alcohol intake: never Patient Tobacco Use Status: Never used Tobacco e-Cigarette/Vaping Use: Never Used service: No Current occupational status: disabled Review of Systems Const All systems reviewed & are unremarkable except as noted in HPI and below Physical Exam Const General: cooperative, healthy appearing, comfortable, no acute distress, well developed, alert and awake Orientation/consciousness: patient oriented x3 Limitations: no limitations HEENT Head: Yes normal to inspection, Yes normocephalic and Yes atraumatic Ears: hearing grossly normal bilaterally Eyes General: appearance normal, both eyes and all related structures Neck Neck: Yes normal visual inspection and Yes trachea midline Chest Chest palpation & inspection: normal inspection of the chest Resp Effort & Inspection: normal respiratory effort and able to speak in complete sentences Cardio Rate: regular rate GI Inspection: Yes normal to inspection General: Yes no CVA tenderness Back/Spine/Pelvis Back: no CVA tenderness Skin General skin exam: no rashes or lesions noted Neuro General: patient oriented x3 Extrem General: Yes normal to inspection Psych Appearance: grossly normal and well kempt Mental Status: mental status grossly normal Speech and movement: Normal speech and movement present and Clear speech present Affect: normal affect Attitude: cooperative Thought process: Normal thought process present Thought content: Normal thought content present Insight: Fair insight present (Psych) Judgement: Fair judgement present (Psych) Office Procedures Post Void Residual Post Residual Void Post Void Residual (PVR): 0 [id number] Void Residual by ultrasound Results AMB Urinalysis, Automated UA Leukoctes 0 Brenton/uL Last Edit by [employer] [employer] on 05/07/24 09:29 UA Nitrite Last Edit by [employer] on 05/07/24 09:29 UA Urobilinogen 0.2 mg/dL Last Edit by [employer] on 05/07/24 09:29 UA Protein 0 mg/dL Last Edit by [employer] on 05/07/24 09:29 UA pH 6.0 Last Edit by [employer] on 05/07/24 09:29 UA Blood 0 Michael/uL Last Edit by [employer] on 05/07/24 09:29 UA Specific Bassett 1.005 Last Edit by [employer] on 05/07/24 09:29 UA Ketone Last Edit by [employer] on 05/07/24 09:29 UA Bilirubin 0 mg/dL Last Edit by [employer] on 05/07/24 09:29 UA Glucose 0 mg/dL Last Edit by [employer] on 05/07/24 09:29 Assessment & Plan Assessment & Plan (1) Urinary dribbling: Code(s): N39.43 - Post-void dribbling Category: Medical (2) Sensation of pressure in bladder area: Code(s): R39.89 - Other symptoms and signs involving the genitourinary system Category: Medical (3) Solitary kidney, congenital: Code(s): Q60.0 - Renal agenesis, unilateral Category: Medical Plan In office urinalysis results reviewed with the patient today; as noted above. Discussed obtaining retroperitoneal ultrasound for further assessment evaluation. We discussed bladder triggers/irritants; information provided Will refer to pelvic floor therapy for further assessment evaluation. We discussed at length potential causes of lower urinary tract symptoms patient is experiencing as well as further treatment options and risks and benefits of these treatment options. Follow-up in 1-3 months with imaging to be completed prior; or sooner with any issues, concerns, and or questions. Orders: Orders AMB Urinalysis Automated Today Z13.9 - Encounter for screening, unspecified AMB Post Void Residual by ultrasound Today Z13.9 - Encounter for screening, unspecified PT Evaluation and Treatment Today N39.43 - Post-void dribbling, R39.89 - Other symptoms and signs involving the genitourinary system US retroperitoneal comp Today N39.43 - Post-void dribbling, R39.89 - Other symptoms and signs involving the genitourinary system Patient Instructions: The patient had an opportunity to ask questions regarding the treatment plan. All questions were answered. Physical exam, labs, and imaging were discussed and reviewed in detail. As well as risks, benefits, and discussion of treatment choices. No major barriers to understanding were identified. The patient expressed understanding and agreement with the above treatment plan. The patient was made aware they should contact our office by phone for worsening of their current condition, the appearance of new symptoms, or with any questions or concerns. Compliance is encouraged with any medications and follow up testing that is ordered. It is a privilege to be allowed the opportunity to participate in? your urological care.? Again, if you have any questions or concerns If you have any questions or concerns please do not hesitate to contact me. The office is [phone]. This note is constructed using voice recognition software. While every effort has been made to ensure accuracy pairer errors may have been included. Yours sincerely, JASPREET Mendoza Coding Level of Care Code New Pt Level 3 (86717) Diagnoses Urinary dribbling N39.43 Sensation of pressure in bladder area R39.89 Solitary kidney, congenital Q60.0 CPT Codes Post Residual Void - PVR CPT Code: 05144-Tqdr Void Residual by ultrasound ([id number])
== END 2024-05-07 09:26 | disposition home or self-care (01) ==
PROVIDERS: PCP Internal Medicine; Visit Provider Nurse Practitioner Family
DX: N39.43 Post-void dribbling (principal); R39.89 Other symptoms and signs involving the genitourinary system; Q60.0 Renal agenesis, unilateral; Z13.9 Encounter for screening, unspecified
CPT/HCPCS: 99203

== ENCOUNTER → 2024-05-07 08:34 | Outpatient (BNVA) | payer OTHER, SELFPAY | PROVIDERS: PCP Internal Medicine; Visit Provider Nurse Practitioner Family | DX: N39.43 Post-void dribbling (principal); R39.89 Other symptoms and signs involving the genitourinary system; Q60.0 Renal agenesis, unilateral | CPT/HCPCS: 51798; 81003; 99202 ==

== ENCOUNTER 2024-07-18 10:58 | Outpatient (REF) | payer OTHER, SELFPAY ==
--- NOTE | ~2024-07-18 | US_ITS ---
CLINICAL HISTORY: N39.43 - Post-void dribbling US Renal Comparison: None Findings: Right kidney normal size and echotexture, 14.2 cm length. No hydronephrosis. Mild expected compensatory hypertrophy. Normal color Doppler. Left kidney: Absent. Urinary bladder is unremarkable. Prevoid volume 494 mL. Postvoid volume 11 mL. Right ureteral jet visualized. IMPRESSION: The left kidney is absent. The right kidney is normal. This document has been electronically signed by: Cuba Ledezma MD on 07/20/2024 12:40:11
--- OUTSIDE RECORDS SUMMARY | 2024-07-18 13:17 | XMS_ITS | Encounter Summary ---
Author Organization [facility] Address [address] [place] [address] Phone Care Team Providers Care Report Analyst Name Role Phone Olamide Chandler MD Primary Care Provide r Encounter Details Date Type Department Care Team (Late st Contact Info) Description 06/05/2024 Telephone [facility] [address] [place] [phone] Delma Parks [address] [place] [phone] Social History Tobacco Use Types Packs/Day Years Used Date Smoking Tobacco: Never Comments Unknown Sex and Gender Information Value Date Recorded Sex Assigned at Not on file Legal Sex Female 4:37 PM EST Gender Identity Not on file Sexual Orientation Not on file documented as of this encounter Miscellaneous Notes * Telephone Encounter - Delma Parks - 06/05/2024 10:[address] Medel, pt called from PCP office to report her BP of 167/85; she did mention she received bad news about a family member so this can be the cause she mentioned. She confirmed she has a bp machine at home. Also notifying that her PCP would like to start her on Ozempic for weight loss, would like your advise on this before moving forward. Thanks in advance! documented in this encounter Plan of Treatment Upcoming Encounters Date Type Department Care Team (Late st Contact Info) Description 12/26/2024 2:45 PM EDT Office Visit [facility] [address] [place] [address] Mahendra Medel DO [address] [place] [phone] documented as of this encounter Visit Diagnoses Not on filedocumented in this encounter Care Teams Report Analyst Relationship Specialty Start Date End Date Olamide Chandler MD [address] [place] [phone] PCP - General Internal Medicine 10/27/23 documented as of this encounter
--- OUTSIDE RECORDS SUMMARY | 2024-07-18 13:17 | XMS_ITS | Encounter Summary ---
Author Organization [employer] Address [address] [facility] [address] [place] [address] Care Team Providers Care Transformer Assembler Name Role Phone Olamide Chandler MD Primary Care Provide r Encounter Details Date Type Department Care Team ([facility] st Contact Info) Description 07/12/2024 Telephone [facility] MEDICINE [address] [place], [place] [phone] Olamide Chandler MD [address] [place] [address] Social History Tobacco Use Types Packs/Day Years Used Date Smoking Tobacco: Never Passive Smoke Exposure: Never Smokeless Tobacco: Never Alcohol Use Standard Drinks/Week Comments Not Currently 0 (1 standard drink = 0.6 oz pur e alcohol) Depression Answer Date Recorded Patient Health Questionnaire-9 Score 25 03/12/2024 Patient Health Questionnaire-9 Score 25 03/12/2024 Last PHQ-9: Questionnaire Data Not on file 0 03/12/2024 Housing Stability Answer Date Recorded What is your housing situation today? I have jozef roberta 08/05/[address] you li ve. Do you have problems with any of the following? None of the above 08/05/2023 Food Insecurity Answer Date Recorded Within the past 12 months, y ou worried that your food would run out before you got money to buy more: Never True 08/05/2023 Within the past 12 months,th e food you bought just didn't last and you didn't have enough money to get more: Never True Transportation Answer Date Recorded In the past 12 months, has l ack of transportation kept you from medical appts, meetings, work or from getting things needed for daily living? No 08/05/2023 Utilities Answer Date Recorded In the past 12 months, has t he electric, gas, oil or water company threatened to shut off services in your home? No 08/05/2023 Depression Answer Date Recorded Patient Health Questionnaire-2 Score 6 03/12/2024 Comments No Sex and Gender Information Value Date Recorded Sex Assigned at Female 04/19/2022 10:15 AM EDT Legal Sex Female 10:15 AM EDT Gender Identity Female 04/19/2022 10:15 AM EDT Sexual Orientation Lesbian or Ramirez 04/19/2022 10 :15 AM EDT documented as of this encounter Miscellaneous Notes * Telephone Encounter - Damari Antunezes - 07/12/2024 2:58 PM EST Called pt to inform them that there appt for 07/26/24 has been cancelled due to the provider we rs appt for 08/30/24 pt said thank you. documented in this encounter Plan of Treatment Upcoming Encounters Date Type Department Care Team (Late st Contact Info) Description 08/30/2024 9:00 AM EDT Telemedicine [facility] MEDICINE [address] [place] [phone] Olamide Chandler MD [address] [place] [address] documented as of this encounter Visit Diagnoses Not on filedocumented in this encounter Additional Health Concerns Assessment Noted Time PHQ-9 Depression Total Score: 25 024 9:17 AM EDT documented as of this encounter Care Teams Transformer Assembler Relationship Specialty Start Date End Date Olamide Chandler MD [address] [place] [phone] PCP - General Family Medicine 07/28/20 documented as of this encounter
--- OUTSIDE RECORDS SUMMARY | 2024-07-18 13:17 | XMS_ITS | Encounter Summary ---
Author Organization [employer] Address [address] [facility] 7t [place] [address] Care Team Providers Care Sheet Mill Supervisor Name Role Phone Olamide Chandler MD Primary Care Provide r Reason for Visit * Reason Onset Date Comments Pre-visit Planning 03/02/2024 Encounter Details Date Type Department Care Team ([facility] st Contact Info) Description 03/02/2024 Telephone [facility] MEDICINE [address] [place], [place] [phone] Olamide Chandler MD [address] [place], [place] [phone] Pre-visit Planning Social History Tobacco Use Types Packs/Day Years Used Date Smoking Tobacco: Never Passive Smoke Exposure: Never Smokeless Tobacco: Never Alcohol Use Standard Drinks/Week Comments Not Currently 0 (1 standard drink = 0.6 oz pur e alcohol) Depression Answer Date Recorded Patient Health Questionnaire-9 Score 18 08/05/2023 Patient Health Questionnaire-9 Score 18 08/05/2023 Last PHQ-9: Questionnaire Data Not on file 0 08/05/2023 Housing Stability Answer Date Recorded What is your housing situation today? I have jozef granados 08/05/[address] you li [...] Date Recorded Patient Health Questionnaire-2 Score 6 08/05/2023 Comments Unknown Sex and Gender Information Value Date Recorded Sex Assigned at Female 04/19/2022 10:15 AM EDT Legal Sex Female 10:15 AM EDT Gender Identity Female 04/19/2022 10:15 AM EDT Sexual Orientation Lesbian or Ramirez 04/19/2022 10 :15 AM EDT documented as of this encounter Miscellaneous Notes * Telephone Encounter - Isidro Hansen - 03/02/2024 9:56 AM EDT Tc from patient returning call to complete pre-visit planning documented in this encounter Plan of Treatment Upcoming Encounters Date Type Department Care Team (Late st Contact Info) Description 08/30/2024 9:00 AM EDT Telemedicine [facility] MEDICINE [address] [place] [phone] Olamide Chandler MD [address] [place] [address] documented as of this encounter Visit Diagnoses Not on filedocumented in this encounter Additional Health Concerns Assessment Noted Time PHQ-9 Depression Total Score: 18 024 9:06 AM EST documented as of this encounter Care Teams Sheet Mill Supervisor Relationship Specialty Start Date End Date Olamide Chandler MD [address] [place] [phone] PCP - General Family Medicine 07/28/20 documented as of this encounter
--- OUTSIDE RECORDS SUMMARY | 2024-07-18 13:17 | XMS_ITS | Clinical Summary ---
Author Organization [facility], Address [address] [place] [address] [place] [phone] Phone Care Team Providers Care Body Technician/Painter Name Role Phone Olamide Chandler MD Primary Care Provide r Allergies Active Allergy Reactions Criticality Noted Date Comments Calcium Carbonate 09/11/2020 Other reaction(s): Hives Cinnamon Other (see comments) 03/11/2020 Fluoxetine Other (see comments) 03/11/2020 Soybean Oil 01/01/2021 Sumatriptan 03/11/2020 Medications buPROPion SR (WELLBUTRIN SR) 150 MG 12 hr tablet Take 1 tablet by mouth 2 (two) times a day 8 Active butalbital-acet aminophen-caffe ine (ESGIC) 50-325-40 MG per capsule Take 1 capsule by mouth every 4 (four) hours 7 Active citalopram (CeleXA) 20 MG tablet Take 1 tablet by mouth 1 (one) time each day 8 Active levothyroxine (SYNTHROID, LEVOTHROID) 75 MCG tablet Take 1 tablet by mouth 1 (one) time each day 7 Active LORazepam (ATIVAN) 0.5 MG tablet Take 1 tablet by mouth 2 (two) times a day 8 Active omeprazole OTC (PriLOSEC OTC) 20 MG EC tablet Take 1 tablet by mouth 1 (one) time each day Active Acetaminophen Extra Strength 500 MG tablet TAKE 1 TABLET BY MOUTH EVERY 4-6 HOURS NEEDED. DO NOT EXCEED 8 TABLETS PER 24 HOURS 2 Active albuterol HFA (PROVENTIL HFA;VENTOLIN HFA) 108 (90 Base) MCG/ACT inhaler Inhale 2 puffs every 4 (four) to 6 (six) hours if needed 2 Active buPROPion XL (WELLBUTRIN XL) 150 MG 24 hr tablet TAKE 1 TABLET BY MOUTH EVERY MORNING DIRECTED 2 Active cholecalciferol (VITAMIN D-3) 50 MCG (2000 UT) capsule Take 2,000 Units by mouth 1 (one) time each day 2 Active Fluticasone-[place]ville meterol 100-50 MCG/ACT aerosol powder USE 1 INHALATION BY MOUTH TWICE DAILY 2 Active omeprazole (PriLOSEC) [address] capsule 2 Active citalopram (CeleXA) 10 MG tablet TAKE 1 TABLET BY MOUTH EVERY DAY IN ADDITION TO 20 MG TABLET 2 Active carvedilol (COREG) 3.125 MG tablet Take 3.125 mg by mouth in the morning and 3.125 mg in the evening. Take with meals. Active hydrOXYzine (ATARAX) 10 MG tablet 4 Active Active Problems Problem Noted Date Diagnosed Date Chronic kidney disease, stage 2 (mild) 4 Contact dermatitis caused by urushiol from [place] poison james 12/28/2023 Bilateral lower leg edema 10/27/2023 Chronic kidney disease stage 3 03/11/2020 Hypothyroidism 03/11/2020 Renal agenesis 03/11/2020 Prediabetes 03/11/2020 Encounters Date Type Department Care Team Description 06/05/2024 Telephone [facility] [address] [place] [phone] Delma Parks from Last 3 Months Family History Medical History Relation Comments Diabetes Mother diabetes Kidney disease Mother ESRD due to diab etes mellitus, Kidney disease Sibling 2 brothers with ESRD due to diabetes mellitus, /borther 2x Relation Status Comments Mother Sibling Social History Tobacco Use Types Packs/Day Years Used Date Smoking Tobacco: Never Tobacco Cessation:Counseling Given: Not Answered Comments Unknown Sex and Gender Information Value Date Recorded Sex Assigned at Not on file Legal Sex Female 4:37 PM EST Gender Identity Not on file Sexual Orientation Not on file Last Filed Vital Signs Vital Sign Reading Time Taken Comments Blood Pressure 132/78 12/28/2023 2:29 PM EDT Pulse 72 12/28/2023 2:29 PM EDT Temperature - - Respiratory Rate - - Oxygen Saturation - - Inhaled Oxygen Concentration - - Weight 101 kg (222 lb 3.6 oz) 11/08/2018 12:00 P M EDT Height 154.9 cm (5' 1 ) 11/08/2018 12:00 PM EDT Body Mass Index 41.99 11/08/2018 12:00 PM EDT Plan of Treatment Upcoming Encounters Date Type Department Care Team (Late st Contact Info) Description 12/26/2024 2:45 PM EDT Office Visit [facility], [address] [place] [phone] Mahendra Medel, [address] [place] [phone] Health Maintenance Due Date Last Done Comments Breast Cancer Screening 1970 Hepatitis B Vaccine (1 of 3 - 19+ 3-dose series) 10/21/1990 12/07/2017, 01/17/2017, 03/03/2016 Colorectal Cancer Screening: Annual FOBT 10/21/2020 Colorectal Cancer Screening: Colonoscopy 10/21/2020 Colorectal Cancer Screening: Sigmoidoscopy 10/21/2020 Influenza Vaccine (#1) 2024 2, 04/08/2021, 03/14/2019, Additional history exists Pneumococcal Vaccine: Pediat rics (0 to 5 Years) and At-Risk Patients (6 to 64 Years) Completed 10/28/2023 Insurance [facility] ONE CARE DUAL SNP ([id number]) NADIR WALKER [id number] Care Teams Body Technician/Painter Relationship Specialty Start Date End Date Olamide Chandler MD [address] [place] [address] [place] WEBSTER [phone] PCP - General Internal Medicine 10/27/23
--- OUTSIDE RECORDS SUMMARY | 2024-07-18 13:17 | XMS_ITS | Clinical Summary ---
Author Organization [employer] Address [address] [place] [address] Care Team Providers Care Clinical Trial Associate Name Role Phone Olamide Chandler MD Primary Care Provide r Allergies Active Allergy Reactions Criticality Noted Date Comments Calcium Carbonate 09/11/2020 Other reaction(s): Hives Cinnamon Rash Low 06/08/2010 Other reaction(s): throat tight Fluoxetine Rash Low 04/16/2015 Other reaction(s): triggers migraine Lisinopril 10/28/2023 Soybean Oil 01/01/2021 Sumatriptan 03/11/2020 Medications buPROPion XL (Wellbutrin XL) 150 MG 24 hr tablet TAKE 1 TABLET BY MOUTH EVERY MORNING DIRECTED 07/28/19 23 Active citalopram (CeleXA) 20 MG tablet Take 20 mg by mouth in the morning. 06/29/19 23 Active citalopram (CeleXA) 10 MG tablet TAKE 1 TABLET BY MOUTH EVERY DAY IN ADDITION TO 20 MG TABLET 07/28/19 23 Active sodium chloride (Stephens Nasal Sandgap) 0.65 % nasal sprayIndications: COVID-19 1-2 sprays on each nostril every 2-3 hours as needed for nasal congestion 30 mL 1 11/24/19 23 Active cyclobenzaprine (Flexeril) 10 MG tabletIndications :Acute pain of right shoulder Take 1 tablet (10 mg) by mouth 3 times daily for 10 days. 30 tablet 12/15/19 23 Active loratadine (Claritin) 10 MG tablet Take 1 tablet (10 mg) by mouth in the morning. 30 tablet 2 03/16/20 23 Active albuterol 108 (90 Base) MCG/ACT inhalerIndication s:Uncomplicated asthma, unspecified asthma severity, unspecified whether persistent Inhale 2 puffs every 4 (four) hours if needed for wheezing or shortness of breath. 18 g 3 06/14/20 23 Active clobetasol (Temovate) 0.05 % cream Apply topically 2 times daily. 45 g 1 12/26/19 24 Active diphenhydrAMINE (BENADryl) 25 MG capsule Take 1 capsule (25 mg) by mouth every 6 (six) hours if needed for itching. May take 1-2 capsules prn rash or itching 40 capsule 1 01/11/20 24 2024 Active omeprazole (PriLOSEC) [address] capsuleIndication s:Gastroesophagea l reflux disease, unspecified whether esophagitis present TAKE 1 CAPSULE BY MOUTH EVERY DAY BEFORE BREAKFAST 90 capsule 03/12/20 24 Active Cholecalciferol (Vitamin D) 50 MCG (2000 UT) capsuleIndication s:Vitamin D deficiency TAKE 1 CAPSULE BY MOUTH EVERY DAY 90 capsule 1 03/12/20 24 Active levothyroxine (Synthroid, Levoxyl) 75 MCG tabletIndications :Other specified hypothyroidism TAKE 1 TABLET BY MOUTH IN THE MORNING 90 tablet 05/29/20 24 Active carvedilol (Coreg) 6.25 MG tabletIndications :Essential hypertension Take 1 tablet (6.25 mg) by mouth with breakfast and with evening meal. 60 tablet 11 05/31/20 24 2024 Active fluticasone (Flonase) 50 MCG/ACT nasal sprayIndications: Seasonal allergies SHAKE LIQUID AND USE 2 SPRAYS INTO EACH NOSTRIL EVERY MORNING IF NEEDED FOR ALLERGIES 48 g 05/31/20 24 Active ammonium lactate (Lac-Hydrin) 12 % lotionIndications :Dry skin dermatitis Apply topically if needed for dry skin. 225 g 1 05/31/20 24 2024 Active pseudoephedrine (Sudafed) 30 MG tablet Take 1 tablet (30 mg) by mouth every 4 (four) hours if needed for congestion for up to 10 days. 30 tablet 06/05/20 24 Active Zepbound 2.5 MG/0.5ML solution auto-injectorIndi cations:Class 3 severe obesity due to excess calories with serious comorbidity and body mass index (BMI) of 45.0 to 49.9 in adult ([facility]) ADMINISTER 2.5 MG UNDER THE SKIN 1 TIME EVERY WEEK 2 mL 07/10/19 25 Active Tirzepatide-Weigh t Management (Zepbound) 2.5 MG/0.5ML solution auto-injectorIndi cations:Class 3 severe obesity due to excess calories with serious comorbidity and body mass index (BMI) of 45.0 to 49.9 in adult ([facility]) Inject 0.5 mL (2.5 mg) under the skin 1 (one) time per week. 2 mL 05/31/20 24 2024 Discontinued Active Problems Problem Noted Date Diagnosed Date Dry skin dermatitis 05/31/2024 Class 3 severe obesity due t o excess calories with serious comorbidity and body mass index (BMI) of 45.0 to 49.9 in adult 05/31/2024 Assessment & Plan (05/31/2024 1:31 PM EST): I will start patient on zepbound 2.5mg weekly, side effects were reviewed RTC 6 weeks televisit Mixed stress and urge urinary incontinence 03/12 Assessment & Plan (03/12/2024 10:05 AM EDT): Urology referral Commode will be prescribed today Other constipation 03/12/2024 Assessment & Plan (03/12/2024 10:05 AM EDT): Increase water an fiber on diet Rash of body 12/26/2023 Assessment & Plan (12/26/2023 9:06 AM EDT): It seems to be Poison James or [place] rash. We discuss about avoiding scratching, use topical poison james cream, clean and wash clothes, linens with specific soap. We discussed re use of steroids , preferably PO since its been about 3w now. She declines PO meds, wants to start with clobetasol cream and will call me if sxs do not improve within 1w, so I will rx PRD for 2-3w. GERD (gastroesophageal reflux disease) Assessment & Plan (03/12/2024 10:04 AM EDT): I advise patient to avoid NSAIDs, spicy and acid food, I advise to eat at the same time every day, I advise to elevate the head of the bed and take medications as prescribe Assessment & Plan (10/28/2023 10:20 AM EDT): I advise patient to avoid NSAIDs, spicy and acid food, I advise to eat at the same time every day, I advise to elevate the head of the bed and take medications as prescribe Influenza A 06/14/2023 Assessment & Plan (06/14/2023 2:48 PM EST): Patient here with c/o sore throat, dry cough and fever x 1 day Positive for Influenza type A Plan: tamiflu x 5 days Supportive measures, instructed in warning signs, asked to come back if symptoms worsen or do not improve or if she develops sob or difficulty breathing. Prediabetes 04/25/2023 Assessment & Plan (08/05/2023 9:41 AM EST): Today extensive discussion was done about life style modifications I advise healthy diet (low calorie) and cardiovascular exercise Assessment & Plan (04/25/2023 3:21 PM EST): Today extensive discussion was done about life style modifications I advise healthy diet (low calorie) and cardiovascular exercise Acute pain of right shoulder 12/14/2022 Assessment & Plan (12/14/2022 2:05 PM EDT): Arm sling will be prescribed Persistent headaches 10/29/2022 Encounter for Papanicolaou s mear for cervical cancer screening 10/29/2022 Lymphadenitis, acute 10/29/2022 Assessment & Plan (10/29/2022 11:25 AM EDT): Ibuprofen PRN Augmentin for 1 week if persistent patient instructed to report back Meningioma, cerebral 09/08/2022 Visual impairment 09/07/2022 Vitamin D deficiency 09/07/2022 Abnormal gait 09/01/2022 Atypical chest pain 09/01/2022 Change in mole 09/01/2022 Dyspnea on exertion 09/01/2022 Excessive cerumen in ear canal 09/01/2022 Joint pain in both hands 09/01/2022 Multiple joint pain 09/01/2022 Seasonal allergies 09/01/2022 Essential hypertension 08/02/2022 Assessment & Plan (05/31/2024 1:30 PM EST): Today I will increase her carvedilol to 6.25mg BID I advise low Na diet and weight reduction Monitor BP at home and reports back if not at goal Assessment & Plan (03/12/2024 10:04 AM EDT): Today slightly elevated possibly because se is preoccupied, she just lost her keys, I advise low Na diet and weight reduction C/w same medication regimen Labs ordered today Assessment & Plan (10/28/2023 10:20 AM EDT): - Aerobic exercise to reduce BP. Initial goal of 30 min walk 3-5x/week. Increase as tolerated. - low-sodium diet (goal: <2g/day) and heart healthy diet such as DASH to reduce BP and prevent ASCVD. - Home BP monitoring 1-2 x day with goal of <140/90. - Seek immediate medical attention for chest pain, palpitations, SOB, syncope, or sudden changes in mental status. - Do not change or discontinue current prescriptions without first consulting health care provider Assessment & Plan (08/05/2023 9:41 AM EST): - Aerobic exercise to reduce BP. Initial goal of 30 min walk 3-5x/week. Increase as tolerated. - low-sodium diet (goal: <2g/day) and heart healthy diet such as DASH to reduce BP and prevent ASCVD. - Home BP monitoring 1-2 x day with goal of <140/90. - Seek immediate medical attention for chest pain, palpitations, SOB, syncope, or sudden changes in mental status. - Do not change or discontinue current prescriptions without first consulting health care provider Assessment & Plan (04/25/2023 3:21 PM EST): - Aerobic exercise to reduce BP. Initial goal of 30 min walk 3-5x/week. Increase as tolerated. - low-sodium diet (goal: <2g/day) and heart healthy diet such as DASH to reduce BP and prevent ASCVD. - Home BP monitoring 1-2 x day with goal of <140/90. - Seek immediate medical attention for chest pain, palpitations, SOB, syncope, or sudden changes in mental status. 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 Skin tag 02/03/2018 Hypothyroidism 04/16/2015 Impaired glucose tolerance 04/16/2015 Menstrual migraine 04/16/2015 Mild intermittent asthma 04/16/2015 Morbid obesity 04/16/2015 Osteoma of skull 04/16/2015 Congenital solitary kidney 04/16/2015 History of cerebral meningioma 09/08/2014 Assessment & Plan (09/08/2022 9:43 AM EDT): Patient informs h/o meningioma has not being monitor for the past [address] f/u Encounters Date Type Department Care Team Description 07/12/2024 Telephone [facility] [address] [place] [address] Olamide Chandler MD 07/08/2024 Refill [facility] [address] [place] [address] Olamide Cahndler MD Class 3 severe obesity due to excess calories with serious comorbidity and body mass index (BMI) of 45.0 to 49.9 in adult ([facility]) 06/15/2024 Telephone [facility] [address] [place] [address] Olamide Chandler MD Medication Question 06/14/[address] [address] Olamide Chandler MD Call Back Request 06/08/2024 9:00 AM EST Office Visit [facility] [address] [place] [phone] Kathleen Meade NP Elevated blood pressure reading in office with diagnosis of hypertension (Primary Dx); Excessive cerumen in both ear canals 06/08/2024 Telephone [facility] [address] [place] [phone] Leonor Cai RN 06/05/2024 9:40 AM EST [facility] [address] [address] Belia Villarreal MD Catarrh of left eustachian tube (Primary Dx); Essential hypertension 06/05/[address] [address] Olamide Chandler MD Prior Authorization (CCA PA request: Zepbound) 05/31/2024 10:00 AM EST Office Visit [address] [address] Olamide Chandler MD Essential hypertension (Primary Dx); Seasonal allergies; Dry skin dermatitis; Class 3 severe obesity due to excess calories with serious comorbidity and body mass index (BMI) of 45.0 to 49.9 in adult ([facility]); Encounter for immunization 05/31/[address] [address] Renée Okeefe MA Durable Medical Equipment 05/31/2024 Travel 05/26/[address] [address] Venus Franklin FNP Other specified hypothyroidism 05/24/2024 Telephone [facility] [address] [place] [phone] Renée Okeefe MA Durable Medical Equipment 05/23/[address] [address] Holly Long RN 05/02/2024 Telephone [facility] [address], [place] [phone] Olamide Chandler MD 04/17/2024 Telephone [facility] [address] [place] [address] Olamide Chandler MD Durable Medical Equipment from Last 3 Months Immunizations Name Administration Dates Next Due DTP 09/10/1983, 0,08/05/1978,1977,01/28/1978 Hep A, Adult 12/07/2017,11/05/2015 Hep B, adult 12/07/2017,01/17/2017,03/03/2016 IPV 09/10/1983, 0,08/03/1978,1977,01/28/1978 Influenza injectable quadriv alent preservative free 03/12/2022,04/08/2021,03/14/2019,2017,03/18/2016 Influenza, IIV3, injectable 03/13/2014,0 03/09/2013,04/11/2008,2006,06/15/2006 Influenza, seasonal, injecta ble, preservative free 03/12/2024,02/16/2017,02/08/2015 MMR 08/12/1978,01/28/1978 Pfizer Covid-19 Vaccine 12+ 10/28/2023 Pneumococcal Conjugate PCV 20 10/28/2023 TD (adult), 2 Lf tetanus tox oid, preservative free, adsorbed 10/11/2007 Tdap 05/31/2024,03/13/2014 Zoster, Recombinant 04/13/2024 Social History Tobacco Use Types Packs/Day Years Used Date Smoking Tobacco: Never Passive Smoke Exposure: Never Smokeless Tobacco: Never Tobacco Cessation:Counseling Given: Not Answered Alcohol Use Standard Drinks/Week Comments Not Currently [...] or Ramirez 04/19/2022 10 :15 AM EDT Last Filed Vital Signs Vital Sign Reading Time Taken Comments Blood Pressure 158/76 06/08/2024 9:34 AM EST Pulse 81 06/08/2024 9:34 AM EST Temperature 36.7 ??C (98 ??F) 06/08/2024 9:34 AM EST Respiratory Rate 18 06/08/2024 9:34 AM EST Oxygen Saturation 97% 06/08/2024 9:34 AM EST Inhaled Oxygen Concentration - - Weight 110 kg (243 lb) 06/08/2024 9:34 AM EST Height 154.9 cm (5' 1 ) 05/31/2024 10:17 AM EST Body Mass Index 45.91 05/31/2024 10:17 AM EST Plan of Treatment Upcoming Encounters Date Type Department Care Team (Late st Contact Info) Description 08/30/2024 9:00 AM EDT Telemedicine [facility] [address] [place] [phone] Olamide Chandler MD [address] [place] [address] Health Maintenance Due Date Last Done Comments CT Colonography 1971 FIT DNA/Cologuard 1971 FIT 1971 FOBT 1971 HIV Screening 1971 Sigmoidoscopy 1971 Alcohol/Substance Use Screening 1983 Family Planning (PISQ) 10/21/1986 Hepatitis C Screening 10/21/1989 COVID-19 Vaccine ( season) 2024 10/28/2023, 06/22/2021, 09/10/2020, Additional history exists Zoster Vaccines (2 of 2) 06/08/2024 04/13/2024 SDOH Screening 08/05/2024 08/05/2023 Depression Monitoring (PHQ-9) 09/09/2024 03/12/2024, 03/12/2024 Mammogram 09/14/2024 09/15/2023, 08/19, 09/09/2022, Additional history exists Depression Screening 03/12/2025 03/12/2024, 03/12/20 Diabetes: Hemoglobin A1C 03/29/2025 024, 08/18/2023, 04/26/2023, Additional history exists Tobacco Screening 06/08/2025 06/08/2024 Colonoscopy 04/12/2027 Colorectal Cancer Screening 04/12/2027 Cervical Cancer Screening 10/30/2027 HPV/Cotest 10/30/2027 10/29/2022, 10/18, 01/28/2017 Pap Smear 10/30/2027 10/29/2022, 10/18, 10/29/2022 Lipid Panel 03/29/2029 03/29/2024, 11/0 12/2022, 08/02/2022, Additional history exists DTaP/Tdap/Td Vaccines (9 - Td or Tdap) 05/31/2034 05/31/2024, 03/13/2014, 10/11/2007, Additional history exists RSV Patients and Patients Aged 60 years or older (1 - 1-dose 75+ series) 10/21/2046 IPV Vaccines Completed 09/10/1983, 07/21, 08/03/1978, Additional history exists Hepatitis A Vaccines Aged Out 12/07/2017, 11/05/19 16 No longer eligible based on patient's age to complete this topic Hepatitis B Vaccines Completed 12/07/2017, 01/17/2017, 03/03/2016 Pneumococcal Vaccine: 50+ Years Completed 10/28/2023 Influenza Vaccine Completed 03/12/2024, , 04/08/2021, Additional history exists HIB Vaccines Aged Out No longer eligi ble based on patient's age to complete this topic HPV Vaccines Aged Out No longer eligi ble based on patient's age to complete this topic Meningococcal Vaccine Aged Out No raf cristina eligible based on patient's age to complete this topic RSV under 20 months Aged Out No longe r eligible based on patient's age to complete this topic Rotavirus Vaccines Aged Out No longer eligible based on patient's age to complete this topic Procedures Procedure Name Priority Date/Time Associated Diagnosis Comments HEMOGLOBIN A1C Routine 03/29/2024 9:50 AM EDT Essential hypertension LIPID PANEL WITH REFLEX TO DIRECT LDL Routine 03/29/2024 9:50 AM EDT Essential hypertension BI MAMMOGRAM SCREENING TOMOSYNTHESIS BILATERAL Routine 09/15/2023 8:57 AM EDT IMAGE-GUIDED PAP W/AGE BASED SCR,W/CT/NG/TRICH Routine 10/29/2022 11:29 AM EDT Encounter for Papanicolaou smear for cervical cancer screening from Last 3 Months or Most Recently Relevant to Health Maintenance Results * (ABNORMAL) Lipid Panel with Reflex to Direct LDL (03/29/2024 9:50 AM EDT) Triglycerides 89 <150 mg/dL [facility] Comment:Desirable Triglyceri de: less than 150 mg/dLBorderline High Triglyceride 150-199 mg/dLHigh Triglyceride: 200-499 mg/dLVery High Triglyceride: greater than or equal to 5OO mg/dL Cholesterol 168 <200 mg/dL [facility] Comment:Desirable Cholestero l: less than 200 mg/dLBorderline High Cholesterol: 200-239 mg/dLHigh Cholesterol: greater than 239 mg/dL LDL Cholesterol Calculated 107(H) <100 mg/dL [facility] Comment:Desirable LDL: less than 100 mg/dLNear Optimal/Above Optimal LDL: 110- 129 mg/dLBorderline High LDL: 130-159 mg/dLHigh LDL: 160-189 mg/dLVery High LDL: greater than or equal to 190 mg/dL HDL Cholesterol 44 >40 mg/dL [facility] Comment:Desirable HDL: great er than 40 mg/dL Note: This HDL assay may give artificially low results in patients with liver disease. Blood 03/29/2024 9:50 AM EDT 03/29/2024 11:08 AM EDT us Olamide Stevens MD LAB BLOOD ORDERABLES Final Result [facility] [address] [place] [phone] * Hemoglobin A1c (03/29/2024 9:50 AM EDT) Hemoglobin A1c 6.0 <6.0 % [facility] Comment:Hemoglobin A1C Refer ence Range Adults: 4.8 - 6.0 % Non diabetic: < 6.0 % Goal: < 7.0 %Additional Action Suggested: > 8.0 %Note: Hemoglobin A1c results are invalid for patients with abnormal amounts of HbF. Blood transfusions may impact the HbA1c concentration in the patient sample. Estimated Average Glucose 126 mg/dL [facility] Comment:eAG = Estimated ave rage glucose which is %A1C expressed asaverage glucose, using the formula of the [id number] Glucose study (ADAG), Diabetes Care, Vol.31,#8,Jan. 2007 Blood Venous blood specimen / Unknown 03/29/2024 9:50 AM EDT 03/29/2024 11:08 AM EDT us Olamide Stevens MD LAB BLOOD ORDERABLES Final Result [facility] [address] [place] [address] [phone] * BI Mammogram Screening Tomosynthesis Bilateral (09/15/2023 8:57 AM EDT) Anatomical Region Laterality Modality Breast Bilateral Mammography 09/15/2023 8:57 AM EDT Narrative 10/11/2023 6:12 AM EDT ? [facility] [place] ? [address] ?[place] [address] ? Mammography Report ? Signed ? Patient: Vaishnavi DanLaisha I ?MR#: M ?? [id number] ? : 1970 ?Acct:[id number] ? Age/Sex: 52 / F ?ADM Date: 09/15/23 ? Loc: HO.MAMMO ? Attending Dr: Olamide Stevens MD ? Ordering Physician: Olamide Chandler MD ?Results: ?? 1Negative ? Date of Service: 09/15/23 ?Follow Up: 1 Year From Orig ?? inal Mammogram ? Procedure(s): MM tomosynthesis screening BI ?? Accession Number(s): [id number] ? cc: Olamide Chandler MD ? EXAMINATION: ?? MM SCREENING DIGITAL BREAST TOMOSYNTHESIS, BILATERAL ? CLINICAL INFORMATION: ? Screening. Asymptomatic. ? COMPARISON: ?? Mammography: This study is compared with prior exams dating back to ?? 2019. ? TECHNIQUE: ?? Digital breast tomosynthesis is performed in both the craniocaudal and ?? mediolateral oblique views along with computer-aided detection (CAD). ?? Synthesized 2D images are generated from the tomosynthesis. ? FINDINGS: ?? The breasts are almost entirely fatty (ACR BI-RADS breast composition ?? Category a). ? There are no significant masses, abnormal calcifications, or other ?? abnormalities. ? MM/MM tomosynthesis screening BI ?? IMPRESSION: ?? No mammographic evidence of malignancy. ? ASSESSMENT: ? BI-RADS BI-RADS 1 - Negative ? RECOMMENDATION: ?? Routine annual mammography screening. ? 1 year F/U ? This examination should not preclude the clinical evaluation of a ?? suspicious palpable abnormality. ? This patient's information was entered into a reminder system with a ?? target due date for their next mammogram. ? Dictated By: ?Leena Sandhu MD ? Signed By: ?<Electronically signed by Leena Sandhu MD in OV> ? 10/11/23 0608 ? DD/ 0857 ? TD/TT: ? Fire Protection Engineer: ? Procedure Note Ana, Image - 10/11/2023 [facility] [address] [place] [address] Mammography Report Signed Patient: Laisha Ye IMR#: M [id number] : 1970Acct:[id number] Age/Sex: 52 / FADM Date: 09/15/23 Loc: HO.MAMMO Attending Dr: Olamide Stevens MD Ordering Physician: Olamide Chandleresults: 1Negative Date of Service: 09/15/23Follow Up: 1 Year From Orig inal Mammogram Procedure(s): MM tomosynthesis screening BI Accession Number(s): [id number] cc: Olamide Chandler MD EXAMINATION: MM SCREENING DIGITAL BREAST TOMOSYNTHESIS, BILATERAL CLINICAL INFORMATION: Screening. Asymptomatic. COMPARISON: Mammography: This study is compared with prior exams dating back to 2019. TECHNIQUE: Digital breast tomosynthesis is performed in both the craniocaudal and mediolateral oblique views along with computer-aided detection (CAD). Synthesized 2D images are generated from the tomosynthesis. FINDINGS: The breasts are almost entirely fatty (ACR BI-RADS breast composition Category a). There are no significant masses, abnormal calcifications, or other abnormalities. MM/MM tomosynthesis screening BI IMPRESSION: No mammographic evidence of malignancy. ASSESSMENT: BI-RADS BI-RADS 1 - Negative RECOMMENDATION: Routine annual mammography screening. 1 year F/U This examination should not preclude the clinical evaluation of a suspicious palpable abnormality. This patient's information was entered into a reminder system with a target due date for their next mammogram. Dictated By: Leena Sandhu MD Signed By: <Electronically signed by Leena Sandhu MD in OV> 10/11/23 0608 DD/ 0857 TD/TT: Fire Protection Engineer: Olamide Stevens MD IMG BI PROCEDURES Fin al Result * Image-Guided Pap with Age-Based Screening??with CT/NG,??Trichomonas (10/29/2022 11:29 AM EDT) Comment [facility] Comment: This order for age-based cervical cancer and STI screening follows ACOG guidelines(PB 168, 140, CKK160). See individual assays for performing site location. Clinical Information: 52 Y/O F NO PREVIOUS ABNORMALITY C [facility] LMP: NONE GIVEN [facility] Prev. PAP: NONE GIVEN [facility] Prev. BX: NONE GIVEN [facility] SOURCE: None given [facility] Statement Of Adequacy: [facility] Comment: Satisfactory for evaluation. Endocervical/transformation zone component absent. Interpretation/Re sult: Negative for intraepithelial lesion or malignancy. [facility] COMMENT: This Pap test has been evaluated with computer assisted technology. [facility]: Amalia jimenez [facility] [place] Comment: EXJ, CT(ASCP) CT Screening Location: [address] [address] (Always Message) [facility] [facility] Comment: EXPLANATORY NOTE: The Pap is a screening test for cervical cancer. It is not a diagnostic test and is subject to false negative and false positive results. It is most reliable when a satisfactory sample, regularly obtained, is submitted with relevant clinical findings and history, and when the Pap result is evaluated along with historic and current clinical information. HPV nRNA E6/E7 Not Detected Not Detected [employer] [facility] Comment: Methodology: Homemaking Rehabilitation Consultant-Mediated Amplification This assay detects E6/E7 viral messenger RNA (mRNA) from 14 high-risk HPV types (16,18,31,33,35,39,45,51,52,56,58,59,66,68). Cervical sources are required for HPV testing. If a vaginal source from a patient who has had a total hysterectomy with removal of cervix was submitted, please contact the testing laboratory for alternative testing options. For additional information, please refer to http://ProHatch.Balls.ie/faq/DQI004q7 (This link if provided for information/ educational purposes only.) Chlamydia trachomatis RNA, TMA, Urogenital NOT DETECTED NOT DETECTED [employer] [facility] [employer] [facility] [place] Neisseria gonorrhoeae RNA, TMA, Urogenital NOT DETECTED NOT DETECTED [employer] [facility] (Always Message) [facility] [employer] [place] [employer] [facility] [place] Comment: The analytical performance characteristics of this assay, when used to test SurePath(TM) specimens have been determined by [employer]. The modifications have not been cleared or approved by the FDA. This assay has been validated pursuant to the CLIA regulations and is used for clinical purposes. For additional information, please refer to https://ProHatch.Balls.ie/faq/CQE528 (This link is being provided for information/ educational purposes only.) Trichomonas vaginalis, QL, TMA, PAP Vial NOT DETECTED NOT DETECTED [employer] [place] [employer] [facility] [employer] [facility] [place] Comment: The analytical performance characteristics of this assay have been determined by [employer]. The modifications have not been cleared or approved by the FDA. This assay has been validated pursuant to the CLIA regulations and is used for clinical purposes. For additional information, please refer to http://education.Balls.ie/ faq/Trichomonastma (This link is being provided for information/ educational purposes only.) Pap Vial 10/29/2022 11:2 9 AM EDT 10/31/2022 4:55 PM EDT us Olamide Stevens MD LAB CYTOLOGY ORDERABL ES Final Result [facility] [address], [place] [address] [employer] [facility] [address] [place] [address] from Last 3 Months or Most Recently Relevant to Health Maintenance Insurance [facility] [address] [place] [id number] Care Teams Clinical Trial Associate Relationship Specialty Start Date End Date Olamide Chandler MD [address] [place] [phone] PCP - General Family Medicine 07/28/20
--- OUTSIDE RECORDS SUMMARY | 2024-07-18 13:17 | XMS_ITS | Encounter Summary ---
Author Organization [employer] Address [address] [facility] 7t [place] [address] Care Team Providers Care Head Start Director Name Role Phone Olamide Chandler MD Primary Care Provide r Reason for Visit * Reason Comments Med Refill Encounter Details Date Type Department Care Team (Late st Contact Info) Description 07/08/2024 Refill [facility] [address] [place], [place] [phone] Olamide Chandler MD [address] [place], [place] [phone] Class 3 severe obesity due to excess calories with serious comorbidity and body mass index (BMI) of 45.0 to 49.9 in adult (CMS/HCC) Social History Tobacco Use Types Packs/Day Years [...] AM EDT documented as of this encounter Plan of Treatment Upcoming Encounters Date Type Department Care Team (Late st Contact Info) Description 08/30/2024 9:00 AM EDT Telemedicine [facility] [address] [place] [address] Olamide Chandler MD [address] [place] [address] documented as of this encounter Visit Diagnoses Diagnosis Class 3 severe obesity due to excess calories with serious comorbidity and body mass index (BMI) of 45.0 to 49.9 in adult (CMS/HCC) documented in this encounter Additional Health Concerns Assessment Noted Time PHQ-9 Depression Total Score: 25 024 9:17 AM EDT documented as of this encounter Care Teams Head Start Director Relationship Specialty Start Date End Date Olamide Chandler MD [address] [place] [address] PCP - General Family Medicine 07/28/20 documented as of this encounter
--- OUTSIDE RECORDS SUMMARY | 2024-07-18 13:17 | XMS_ITS | Clinical Summary ---
Author Organization [facility] ity Address [address] [place] [address] Care Team Providers Care Pin Worker Name Role Phone Unavailable Primary Care Provider Unavailabl e Social History Tobacco Use Types Packs/Day Years Used Date Smoking Tobacco: Never Assessed Sex and Gender Information Value Date Recorded Sex Assigned at Not on file Gender Identity Not on file Sexual Orientation Not on file Plan of Treatment Health Maintenance Due Date Last Done Comments Breast Cancer Screening 1970 DTaP,Tdap,and Td Vaccines (1 - Tdap) 10/21/1990 Hepatitis B Vaccines (1 of 3 - 19+ 3-dose series) 10/21/1990 Cervical Cancer Screening: P ap Smear 10/21/1992 Zoster Vaccines (1 of 2) 10/21/2021 Colorectal Cancer Screening: Colonoscopy 08/26/2023 Depression Screening 08/26/2023 HIV Screening 08/26/2023 Hepatitis C Screening 08/26/2023 Social Influencers of Health Screening 08/26/2023 COVID-19 Vaccine ( - 2023-2 5 season) 2024 Influenza Vaccine (#1) 2024 HIB Vaccines Aged Out No longer eligi ble based on patient's age to complete this topic HPV Vaccines Aged Out No longer eligi ble based on patient's age to complete this topic Hepatitis A Vaccines Aged Out No long er eligible based on patient's age to complete this topic IPV Vaccines Aged Out No longer eligi ble based on patient's age to complete this topic MMR Vaccines Aged Out No longer eligi ble based on patient's age to complete this topic Meningococcal ACWY Vaccine Aged Out N o longer eligible based on patient's age to complete this topic Pneumococcal Vaccine: Pediat rics (0 to 5 Years) and At-Risk Patients (6 to 64 Years) Aged Out No longer eligible b ased on patient's age to complete this topic RSV Immunization Patients Un macarena 20 months Aged Out No longer eligible b ased on patient's age to complete this topic Varicella Vaccines Aged Out No longer eligible based on patient's age to complete this topic
--- OUTSIDE RECORDS SUMMARY | 2024-07-18 13:18 | XMS_ITS | Encounter Summary ---
Author Organization [employer] Address [address] [facility] 7t [place] [address] Care Team Providers Care Straw Hat Machine Operator Name Role Phone Olamide Chandler MD Primary Care Provide r Encounter Details Date Type Department Care Team (Late Contact Info) Description 08/18/2022 Telephone [facility] [address] [place] [phone] Olamide Chandler MD [address] [place] [address] Social History Tobacco Use Types Packs/Day Years Used Date Smoking Tobacco: Never Passive Smoke Exposure: Never Smokeless Tobacco: Never Alcohol Use Standard Drinks/Week Comments Not Currently 0 (1 standard drink = 0.6 oz pur e alcohol) Comments Unknown Sex and Gender Information Value Date Recorded Sex Assigned at Female 04/19/2022 10:15 AM EDT Legal Sex Female 10:15 AM EDT Gender Identity Female 04/19/2022 10:15 AM EDT Sexual Orientation Lesbian or Ramirez 04/19/2022 10 :15 AM EDT COVID-19 Exposure Response Date Recorded In the last 10 days, have yo u been in contact with someone who was confirmed or suspected to have Coronavirus/COVID-19? No / Unsure 08/02/2022 9:39 AM EST documented as of this encounter Plan of Treatment Upcoming Encounters Date Type Department Care Team (Late Contact Info) Description 08/30/2024 9:00 AM EDT Telemedicine [facility] [address] [place] [address] Olamide Chandler MD [address] [place], [place] [phone] documented as of this encounter Visit Diagnoses Not on filedocumented in this encounter Care Teams Straw Hat Machine Operator Relationship Specialty Start Date End Date Olamide Chandler MD [address] [place] [address] PCP - General Family Medicine 07/28/20 documented as of this encounter
--- OUTSIDE RECORDS SUMMARY | 2024-07-18 13:18 | XMS_ITS | Encounter Summary ---
Author Organization [employer] Address [address] [facility] 7t [place] [address] Care Team Providers Care Pest Control Service Representative Name Role Phone Olamide Chandler MD Primary Care Provide r Encounter Details Date Type Department Care Team (Late Contact Info) Description 09/01/2022 Orders Only [facility] [address] [place] [phone] Renée Okeefe [place] Social History Tobacco Use Types Packs/Day Years [...] Info) Description 08/30/2024 9:00 AM EDT Telemedicine [facility] [address] [place] [address] [phone] Olamide Chandler MD [address] [place] [address] [place] [address] documented as of this encounter Procedures Procedure Name Priority Date/Time Associated Diagnosis Comments URINALYSIS, COMPLETE, WITH REFLEX TO CULTURE Routine 04/17/2023 1:20 AM EDT B TYPE NATRIURETIC PEPTIDE (BNP) Routine 04/17/2023 12:46 AM EDT BI MAMMOGRAM SCREENING TOMOSYNTHESIS BILATERAL Routine 09/09/2022 8:30 AM EDT documented in this encounter Results * (ABNORMAL) Urinalysis, Complete, with Reflex to Culture (04/17/2023 1:20 AM EDT) Color Urine Yellow [facility] Appearance Urine Clear [facility] PH 6.0 5.0 - 9.0 [facility] Glucose Urine UA Negative Negative mg/dL [facility] Urine Blood Negative Negative [facility] Specific [place] - Urine <=1.005 1.005 - 1.025 [facility] Urine Protein Negative Neg-Trace mg/dL [facility] Urine Ketones Negative Negative mg/dL [facility] Nitrite Urine Negative Negative [facility] Leukocyte Esterase Urine Trace(A) Negative [facility] RBC Urine 0-2 0 - 2 /HPF [facility] Urine WBC 0-5 0 - 5 /HPF [facility] Urine Squamous Epithelial Cell 0-2 0 - 2 /HPF [facility] Urine Bacteria None Seen None Seen [facility] Hyaline Casts, Urine 0-2 0 - 2 /LPF [facility] 04/17/2023 1:20 AM EDT 04/17/2023 1:23 AM EDT Narrative [facility] - 04/17/2023 1:42 AM EDT [id number], Clean Catch us [facility] External Provider LAB URI NE ORDERABLES Final Result Performing Organization Address City/State/[facility] de Phone Number [facility] [address] [place] [address] [phone] * B Type Natriuretic Peptide (BNP) (04/17/2023 12:46 AM EDT) B Type Natriuretic Peptide 44 <100 pg/mL [facility] Comment:For those patients w ho are being treated with Natrecor(nesiritide, recombinant BNP), BNP testing should beperformed at least two hours post treatment in order toensure that only endogenous levels of BNP are detected. 04/17/2023 12:4 6 AM EDT 04/17/2023 12:53 AM EDT [facility] External Provider LAB BLO OD ORDERABLES Final Result Performing Organization Address [facility] de Phone Number [facility] [address] [place] [address] [phone] * BI Mammogram Screening Tomosynthesis Bilateral (09/09/2022 8:30 AM EDT) Anatomical Region Laterality Modality Breast Bilateral Mammography 09/09/2022 8:30 AM EDT Narrative 09/10/2022 11:56 AM EDT ? [facility] [place] ? [address] ?[place] [id number] ? Mammography Report ? Signed ? Patient: Riggins Dan,Laisha I ?MR#: M ?? [id number] ? : 1970 ?Acct:[id number] ? Age/Sex: 51 / F ?ADM Date: 03/23/23 ? Loc: HO.MAMMO ? Attending Dr: Olamide Stevens MD ? Ordering Physician: Olamide Chandler MD ?Results: ?? 1Negative ? Date of Service: 09/09/22 ?Follow Up: 1 Year From Orig ?? inal Mammogram ? Procedure(s): MM tomosynthesis screening BI ?? Accession Number(s): [id number] ? cc: Olamide Chandler MD ? EXAMINATION: ?? MM SCREENING DIGITAL BREAST TOMOSYNTHESIS, BILATERAL ? CLINICAL INFORMATION: ? Screening. Asymptomatic. ? The lifetime risk of breast cancer based on the Tyrer-Cuzick Model is ?? 10.5%. ? COMPARISON: ?? Mammography: August 05, 2021 and studies dating back to March 29, ?? 2018 ? TECHNIQUE: ?? Digital breast tomosynthesis is [...] tomosynthesis screening BI ?? IMPRESSION: ?? No significant changes from prior exam. ? ASSESSMENT: ? BI-RADS 1: Negative ? RECOMMENDATION: ?? Routine annual mammography screening. ? This patient's information was entered into a reminder system with a ?? target due date for their next mammogram. ? Dictated By: ?Oswald Borges MD ? Signed By: ?<Electronically signed by Oswald Borges MD in OV> ?03/24/23 1153 ? DD/DT: // 0830 ? TD/TT: ? Management Department Chair: SK ? Procedure Note Donotuseinterpreter, Image - 09/10/2022 [facility]'s [address] [place] [address] Mammography Report Signed Patient: Laisha Ye IMR#: M [id number] : 1970Acct:[id number] Age/Sex: 51 / FADM Date: 09/09/22 Loc: HO.MAMMO Attending Dr: Olamide Stevens MD Ordering Physician: Olamide Chandler MDResults: 1Negative Date of Service: 09/09/22Follow Up: 1 Year From Orig inal Mammogram Procedure(s): MM tomosynthesis screening BI Accession Number(s): [id number] cc: Olamide Chandler MD EXAMINATION: MM SCREENING DIGITAL BREAST TOMOSYNTHESIS, BILATERAL CLINICAL INFORMATION: Screening. Asymptomatic. The lifetime risk of breast cancer based on the Tyrer-Cuzick Model is 10.5%. COMPARISON: Mammography: August 05, 2021 and studies dating back to March 29, 2018 TECHNIQUE: Digital breast tomosynthesis is performed in both the craniocaudal and mediolateral oblique views along with computer-aided detection (CAD). Synthesized 2D images are generated from the tomosynthesis. FINDINGS: The breasts are almost entirely fatty (ACR BI-RADS breast composition Category a). There are no significant masses, abnormal calcifications, or other abnormalities. MM/MM tomosynthesis screening BI IMPRESSION: No significant changes from prior exam. ASSESSMENT: BI-RADS 1: Negative RECOMMENDATION: Routine annual mammography screening. This patient's information was entered into a reminder system with a target due date for their next mammogram. Dictated By: Oswald Borges MD Signed By: <Electronically signed by Oswald Borges MD in OV> 09/10/22 1153 DD/ 0830 TD/TT: Management Department Chair: SAURAV [facility] External Provider IMG BI PROCEDURES Edited Result - Final documented in this encounter Visit Diagnoses Not on filedocumented in this encounter Care Teams Pest Control Service Representative Relationship Specialty Start Date End Date Olamide Chandler MD [address] [place] [address] PCP - General Family Medicine 07/28/20 documented as of this encounter
== END 2024-07-18 10:59 | disposition home or self-care (01) ==
LOC: HO.US 10:58
PROVIDERS: PCP Internal Medicine; Visit Provider Nurse Practitioner Family
DX: N39.43 Post-void dribbling (principal); R39.89 Other symptoms and signs involving the genitourinary system
CPT/HCPCS: 76770

== ENCOUNTER → 2024-07-18 10:59 | Outpatient (BNV) | payer OTHER, SELFPAY | PROVIDERS: PCP Internal Medicine; Visit Provider Radiology Vascular & Interventional Radiology | DX: N39.43 Post-void dribbling (principal) | CPT/HCPCS: 76770 ==

== ENCOUNTER 2024-08-31 08:58 | Outpatient (REF) | payer OTHER, SELFPAY ==
--- OUTSIDE RECORDS SUMMARY | 2024-08-31 09:24 | XMS_ITS | Encounter Summary ---
Author Organization [facility] [employer] Address [address] [facility] [place] [address] Care Team Providers Care Rainbow Trout Farm Manager Name Role Phone Olamide Chandler MD Primary Care Provide r Encounter Details Date Type Department Care Team (Latest Contact Info) Description 08/30/2024 Travel Social History Tobacco Use Types Packs/Day Years [...] as of this encounter Plan of Treatment Not on file documented as of this encounter Visit Diagnoses Not on filedocumented in this encounter Additional Health Concerns Assessment Noted Time PHQ-9 Depression Total Score: 25 024 9:17 AM EDT documented as of this encounter Care Teams Rainbow Trout Farm Manager Relationship Specialty Start Date End Date Olamide Chandler MD [address] [place] [address] PCP - General Family Medicine 07/28/20 documented as of this encounter
--- OUTSIDE RECORDS SUMMARY | 2024-08-31 09:24 | XMS_ITS | Encounter Summary ---
Author Organization [employer] Address [address] [facility] 7t [place] [address] Care Team Providers Care Change Release Manager Name Role Phone Olamide Chandler MD Primary Care Provide r Encounter Details Date Type Department Care Team ([facility] st Contact Info) Description 08/09/2024 Orders Only [facility] [address] [place], [place] [phone] Olamide Chandler MD [address] [place] [address] Social History Tobacco Use Types Packs/Day Years [...] documented as of this encounter Care Teams Change Release Manager Relationship Specialty Start Date End Date Olamide Chandler MD [address] [place] [address] PCP - General Family Medicine 07/28/20 documented as of this encounter
--- OUTSIDE RECORDS SUMMARY | 2024-08-31 09:24 | XMS_ITS | Encounter Summary ---
Author Organization [employer] Address [address] [facility] 7t [place] [address] Care Team Providers Care Thoroughbred Horse Farm Manager Name Role Phone Olamide Chandler MD Primary Care Provide r Reason for Visit * Reason Comments Med Refill Encounter Details Date Type Department Care Team (Late st Contact Info) Description 08/09/2024 Refill [facility] [address] [place], [place] [phone] Olamide Chandler MD [address] [place], [place] [phone] Class 3 severe obesity due to excess [...] documented as of this encounter Care Teams Thoroughbred Horse Farm Manager Relationship Specialty Start Date End Date Olamide Chandler MD [address] [place] [phone] PCP - General Family Medicine 07/28/20 documented as of this encounter
--- OUTSIDE RECORDS SUMMARY | 2024-08-31 09:24 | XMS_ITS | Encounter Summary ---
Author Organization [employer] Address [address] [facility] 7t [place] [address] Care Team Providers Care Digital Research Analyst Name Role Phone Olamide Chandler MD Primary Care Provide r Encounter Details Date Type Department Care Team (Late st Contact Info) Description 09/01/2022 Orders Only [facility] [address] [place] [address] Renée Okeefe [place] Social History Tobacco Use [...] on file documented as of this encounter Procedures Procedure [...] (04/17/2023 1:20 AM EDT) Color Urine Yellow [facility] Appearance Urine Clear [facility] PH 6.0 5.0 - 9.0 [facility] Glucose Urine UA Negative Negative mg/dL [facility] Urine Blood Negative Negative [facility] Specific [place] - Urine <=1.005 1.005 - 1.025 [facility] Urine Protein Negative Neg-Trace mg/dL [facility] Urine Ketones Negative Negative mg/dL [facility] Nitrite Urine Negative Negative [facility] Leukocyte Esterase Urine Trace(A) Negative [facility] RBC Urine 0-2 0 - 2 /HPF [facility] Urine WBC 0-5 0 - 5 /HPF [facility] Urine Squamous Epithelial Cell 0-2 0 - 2 /HPF [facility] Urine Bacteria None Seen None Seen [facility] Hyaline Casts, Urine 0-2 0 - 2 /LPF [facility] 04/17/2023 1:20 AM EDT 04/17/2023 1:23 AM EDT Narrative [facility] - 04/17/2023 1:42 AM EDT [id number], Clean Catch us [facility] External Provider LAB URI NE ORDERABLES Final Result [facility] [address] [place] [phone] * B Type Natriuretic Peptide (BNP) (04/17/2023 12:46 AM EDT) B Type Natriuretic Peptide 44 <100 pg/mL [facility] Comment:For those patients w ho are being treated with Natrecor(nesiritide, recombinant BNP), BNP testing should beperformed at least two hours post treatment in order toensure that only endogenous levels of BNP are detected. 04/17/2023 12:4 6 AM EDT 04/17/2023 12:53 AM EDT us [facility] External Provider LAB BLO OD ORDERABLES Final Result [facility] [address] [place] [address] [phone] * BI Mammogram Screening Tomosynthesis Bilateral (09/09/2022 8:30 AM EDT) Anatomical Region Laterality Modality Breast Bilateral Mammography 09/09/2022 8:30 AM EDT Narrative 09/10/2022 11:56 AM EDT ? [facility] [place] ? [address] ?[place] [id number] ? Mammography Report ? Signed ? Patient: Riggins Dan,Laisha I ?MR#: M ?? [id number] ? : 1970 ?Acct:[id number] ? Age/Sex: 51 / F ?ADM Date: 09/09/ ? Loc: HO.MAMMO ? Attending Dr: Olamide Stevens MD ? Ordering Physician: Olamide Chandler MD ?Results: ?? 1Negative ? Date of Service: 09/09/ ?Follow Up: 1 Year From Orig ?? inal Mammogram ? Procedure(s): MM tomosynthesis screening BI ?? Accession Number(s): [id number] ? cc: Olamide Chandler MD ? EXAMINATION: [...] signed by Oswald Borges MD in OV> ?09/10/22 1153 ? DD/ 9 ? TD/TT: ? Acds Block 1 Operator: SK ? Procedure Note Ana, Gloria - 09/10/2022 [facility] [facility] [address] [place] [address] [place] [address] Mammography Report Signed Patient: Laisha Ye IMR#: M [id number] : 1970Acct:[id number] Age/Sex: 51 / FADM Date: 09/09/22 Loc: HO.MAMMO Attending Dr: Olamide Stevens MD Ordering Physician: Olamide Chandler MDResults: 1Negative Date of Service: 09/09/22Follow Up: 1 Year From Orig inal Mammogram Procedure(s): MM tomosynthesis screening BI Accession Number(s): [id number] cc: Olamide Chandler MD EXAMINATION: MM SCREENING [...] in OV> 09/10/22 1153 DD/ 0830 TD/TT: Acds Block 1 Operator: SK [place] [facility] External Provider IMG BI PROCEDURES Edited Result - Final documented in this encounter Visit Diagnoses Not on filedocumented in this encounter Care Teams Digital Research Analyst Relationship Specialty Start Date End Date Olamide Chandelr MD [address] [place] [phone] PCP - General Family Medicine 07/28/20 documented as of this encounter
--- OUTSIDE RECORDS SUMMARY | 2024-08-31 09:24 | XMS_ITS | Encounter Summary ---
Author Organization [facility] Address [address] [place] [address] Phone Care Team Providers Care Real Estate Agent Name Role Phone Olamide Chandler MD Primary Care Provide r Encounter Details Date Type Department Care Team (Late st Contact Info) Description 06/05/2024 Telephone [facility] [address] [place] [phone] Delma Parks [address] [place] [phone] Social History Tobacco Use Types Packs/Day [...] Care Team (Late st Contact Info) Description 01/03/2025 3:00 PM EDT Office Visit [facility] [address] [place] [address] Mahendra Medel DO [address] [place] [address] documented as of this encounter Visit Diagnoses Not on filedocumented in this encounter Care Teams Real Estate Agent Relationship Specialty Start Date End Date Olamide Chandler MD [address] [place] [phone] PCP - General Internal Medicine 10/27/23 documented as of this encounter
--- OUTSIDE RECORDS SUMMARY | 2024-08-31 09:24 | XMS_ITS | Encounter Summary ---
Author Organization [employer] Address [address] [facility] [address] [place] [address] Care Team Providers Care Group Art Supervisor Name Role Phone Olamide Chandler MD Primary Care Provide r Reason for Visit * Reason Onset Date Comments Nurse Triage 08/14/2024 Encounter Details Date Type Department Care Team ([facility] st Contact Info) Description 08/14/2024 Telephone [facility] MEDICINE [address] [place], [place] [phone] Olamide Chandler MD [address] [place], [place] [phone] Nurse Triage Social History Tobacco Use Types Packs/Day Years [...] encounter Miscellaneous Notes * Telephone Encounter - Dayanara Esteves RN - 08/14/2024 2:54 PM EST No group account director needed as this communications writer speaks Turkish. Call returned to [facility] to triage below. Reports having weakness, hair thinning and brittle nails x 2 weeks. No recent CONSTANTINE sx or fever. Reports is taking Levothyroxine 75mcg daily. Pt denies any palpitations or CP. Pt wants blood work to look at vitamins. Pt currently on zepbound as well. Pt advised no sooner appt with PCP than already scheduled follow up on 08/30/24. Pt agrees to seek [facility] for exam. Reviewed [facility] operating hours and that wait times vary. Reviewed home care advise, ER precautions and reasons to call back. Protocol Used: Weakness (Generalized) and Fatigue (Adult) Protocol-Based Disposition: See in Office or Video Visit Today Positive Triage Question: * Taking a medicine that could cause weakness (e.g., blood pressure medications, diuretics) * All higher-acuity triage questions were negative * Telephone Encounter - Nina White - 08/14/2024 2:41 PM EST Symptoms: Weakness, Hair Loss, Brittle Splitting Nails Outcome: Schedule an urgent appointment (within 1 hour) or talk to a nurse or provider soon Reason: Started within the past 3 days The caller accepted this outcome. [phone] *denied group account director - documented in this encounter Plan of Treatment Not on file documented as of this encounter Visit Diagnoses Not on filedocumented in this encounter Additional Health Concerns Assessment Noted Time PHQ-9 Depression Total Score: 25 024 9:17 AM EDT documented as of this encounter Care Teams Group Art Supervisor Relationship Specialty Start Date End Date Olamide Chandler MD [address] [place] [address] PCP - General Family Medicine 07/28/20 documented as of this encounter
--- OUTSIDE RECORDS SUMMARY | 2024-08-31 09:24 | XMS_ITS | Clinical Summary ---
Author Organization [facility] ity Address [address] [place] [address] Care Team Providers Care Principal Embedded Software Engineer Name Role Phone Unavailable Primary Care Provider Unavailabl e Social History Tobacco Use Types Packs/Day Years Used Date Smoking Tobacco: Never Assessed Comments Unknown Sex and Gender Information Value Date Recorded Sex Assigned at Not on file Legal Sex Female 12:25 PM EST Gender Identity Not on file Sexual Orientation Not on file Plan of Treatment Health Maintenance Due Date Last Done Comments Breast Cancer Screening 1970 DTaP,Tdap,and Td Vaccines (1 - Tdap) 10/21/1990 Hepatitis B Vaccines (1 of 3 - 19+ 3-dose series) 10/21/1990 Cervical Cancer Screening: P ap Smear 10/21/1992 Pneumococcal Vaccine: 50+ Ye ars (1 of 1 - PCV) 10/21/2021 Zoster Vaccines (1 of 2) 10/21/2021 Colorectal [...] patient's age to complete this topic Meningococcal B Vacine Aged Out No lo nger eligible based on patient's age to complete [...]
--- OUTSIDE RECORDS SUMMARY | 2024-08-31 09:24 | XMS_ITS | Encounter Summary ---
Author Organization [employer] Address [address] [facility] [address] [place] [address] Care Team Providers Care Integrity Specialist Name Role Phone Olamide Chandler MD Primary Care Provide r Reason for Visit * Reason Onset Date Comments Pre-visit Planning 03/02/2024 Encounter Details Date Type Department Care Team ([facility] st Contact Info) Description 03/02/2024 Telephone [facility] MEDICINE [address] [place], [place] [phone] Olamide Chandler MD [address] [place], [place] [phone] Pre-visit Planning Social History Tobacco Use Types [...] documented as of this encounter Care Teams Integrity Specialist Relationship Specialty Start Date End Date Olamide Chandler MD [address] [place] [id number] PCP - General Family Medicine 07/28/20 documented as of this encounter
--- OUTSIDE RECORDS SUMMARY | 2024-08-31 09:24 | XMS_ITS | Encounter Summary ---
Author Organization [employer] Address [address] [facility] 7[address] [place] [address] Care Team Providers Care Software Development Advisor Name Role Phone Olamide Chandler MD Primary Care Provide r Reason for Visit * Reason Comments Med Refill Encounter Details Date Type Department Care Team ([facility] st Contact Info) Description 08/23/2024 Refill [facility] MEDICINE [address] [place], [place] [phone] Olamide Chandler MD [address] [place], [place] [phone] Other specified hypothyroidism Social History Tobacco Use Types Packs/Day Years [...] as of this encounter Visit Diagnoses Diagnosis Other specified hypothyroidism documented in this encounter Additional Health Concerns Assessment Noted Time PHQ-9 Depression Total Score: 25 024 9:17 AM EDT documented as of this encounter Care Teams Software Development Advisor Relationship Specialty Start Date End Date Olamide Chandler MD [address] [place] [phone] PCP - General Family Medicine 07/28/20 documented as of this encounter
--- OUTSIDE RECORDS SUMMARY | 2024-08-31 09:24 | XMS_ITS | Clinical Summary ---
Author Organization [facility], Address [address] [place] [address] [place] [address] Phone Care Team Providers Care Administrative Associate Name Role Phone Olamide Chandler MD [...] Telephone [facility] [address] [place] [address] Delma Parks from Last 3 Months Family [...] Visit [facility], [address] [place] [id number] Mahendra Medel, [address] [place] [id number] Health Maintenance Due Date Last Done Comments Breast Cancer Screening 1971 Hepatitis B Vaccine (1 of 3 - 19+ 3-dose series) 10/21/1990 12/07/2017, 01/17/2017, 03/03/2016 Colorectal Cancer Screening: Annual FOBT 10/21/2020 Colorectal Cancer Screening: Colonoscopy 10/21/2020 Colorectal Cancer Screening: Sigmoidoscopy 10/21/2020 Pneumococcal Vaccine: Pediat rics (0 to 5 Years) and At-Risk Patients (6 to 64 Years) Completed 10/28/2023 Influenza Vaccine Completed 03/12/2024, , 04/08/2021, Additional history exists Insurance [facility] ONE CARE DUAL SNP ([id number]) Care Teams Administrative Associate Relationship Specialty Start Date End Date Olamide Chandler MD [address] [place] [address] [place] [phone] PCP - General Internal Medicine 10/27/23
--- OUTSIDE RECORDS SUMMARY | 2024-08-31 09:24 | XMS_ITS | Encounter Summary ---
Author Organization [employer] Address [address] [facility] 7t [place] [address] Care Team Providers Care Property Officer Name Role Phone Olamide Chandler MD Primary Care Provide r Encounter Details Date Type Department Care Team ([facility] st Contact Info) Description 08/18/2022 Telephone [facility] MEDICINE [address] [place], [place] [phone] Olamide Chandler MD [address] [place] [address] Social History Tobacco Use Types Packs/Day Years [...] on filedocumented in this encounter Care Teams Property Officer Relationship Specialty Start Date End Date Olamide Chandler MD [address] [place] [address] PCP - General Family Medicine 07/28/20 documented as of this encounter
--- OUTSIDE RECORDS SUMMARY | 2024-08-31 09:24 | XMS_ITS | Clinical Summary ---
Author Organization [employer] Address [address] [facility] 7[address] [place] [address] Care Team Providers Care Disability Insurance Claim Examiner Name Role Phone Olamide Chandler MD Primary [...] MG TABLET 07/28/19 23 Active sodium chloride ([place] Nasal [place]) 0.65 % nasal sprayIndications: COVID-19 1-2 sprays [...] 40 capsule 1 01/11/20 24 2024 Active Cholecalciferol (Vitamin D) 50 MCG (2000 UT) capsuleIndication s:Vitamin D deficiency TAKE 1 CAPSULE BY MOUTH EVERY DAY 90 capsule 1 03/12/20 24 Active carvedilol (Coreg) 6.25 MG tabletIndications :Essential hypertension Take 1 tablet (6.25 mg) by mouth with breakfast and with evening meal. 60 tablet 11 05/31/20 24 2024 Active ammonium lactate (Lac-Hydrin) 12 % lotionIndications :Dry skin dermatitis Apply topically if needed for dry skin. 225 g 1 05/31/20 24 2024 Active pseudoephedrine (Sudafed) 30 MG tablet Take 1 tablet (30 mg) by mouth every 4 (four) hours if needed for congestion for up to 10 days. 30 tablet 06/05/20 24 Active omeprazole (PriLOSEC) [address] capsuleIndication s:Gastroesophagea l reflux disease, unspecified whether esophagitis present TAKE 1 CAPSULE BY MOUTH EVERY DAY BEFORE BREAKFAST 90 capsule 07/19/19 25 Active fluticasone (Flonase) 50 MCG/ACT nasal sprayIndications: Seasonal allergies SHAKE LIQUID AND USE 2 SPRAYS IN EACH NOSTRIL EVERY MORNING NEEDED FOR ALLERGIES 48 g 08/23/19 25 Active levothyroxine (Synthroid, Levoxyl) 75 MCG tabletIndications :Other specified hypothyroidism TAKE 1 TABLET BY MOUTH IN THE MORNING 90 tablet 08/24/19 25 Active senna-docusate (Senokot S) 8.6-50 MG tabletIndications :Constipation, unspecified constipation type Take 1 tablet by mouth Once per day. 30 tablet 11 08/31/19 25 2025 Active Tirzepatide-Weigh t Management (Zepbound) 5 MG/0.5ML solution auto-injectorIndi cations:Class 3 severe obesity due to excess calories with serious comorbidity and body mass index (BMI) of 45.0 to 49.9 in adult ([facility]) Inject 0.5 mL (5 mg) under the skin 1 (one) time per week. 2 mL 08/31/19 Active levothyroxine (Synthroid, Levoxyl) 75 MCG tabletIndications :Other specified hypothyroidism TAKE 1 TABLET BY MOUTH IN THE MORNING 90 tablet 05/29/20 24 2024 Discontinued fluticasone (Flonase) 50 MCG/ACT nasal sprayIndications: Seasonal allergies SHAKE LIQUID AND USE 2 SPRAYS INTO EACH NOSTRIL EVERY MORNING IF NEEDED FOR ALLERGIES 48 g 05/31/20 24 2024 Discontinued Zepbound 2.5 MG/0.5ML solution auto-injectorIndi cations:Class 3 severe obesity due to excess calories with serious comorbidity and body mass index (BMI) of 45.0 to 49.9 in adult ([facility]) ADMINISTER 2.5 MG UNDER THE SKIN 1 TIME EVERY WEEK 2 mL 07/10/19 25 2024 Discontinued Zepbound 2.5 MG/0.5ML solution auto-injectorIndi cations:Class 3 severe obesity due to excess calories with serious comorbidity and body mass index (BMI) of 45.0 to 49.9 in adult ([facility]) ADMINISTER 2.5 MG UNDER THE SKIN 1 TIME EVERY WEEK 2 mL 08/09/19 25 2024 Discontinued Active Problems Problem Noted Date Diagnosed Date Constipation 08/30/2024 Assessment & Plan (08/30/2024 9:37 AM EDT): Advised to drink more water and increase fiber in her diet I also advised for her to walk more I will prescribe for patient Eleno to take daily for constipation TSH will be checked with labs Hair loss 08/30/2024 Assessment & Plan (08/30/2024 9:37 AM EDT): Patient has been followed by dermatology I will order blood work to rule out thyroid issues Chronic fatigue 08/30/2024 Assessment & Plan (08/30/2024 9:38 AM EDT): Blood work ordered today patient will be informed about results Dry skin dermatitis 05/31/2024 Class 3 severe obesity due t o excess calories with serious comorbidity and body mass index (BMI) of 45.0 to 49.9 in adult 05/31/2024 Assessment & Plan (08/30/2024 9:38 AM EDT): Extensive counseling about healthy diet and exercise done today I will increase her step down to 5 mg weekly Assessment & Plan (05/31/2024 1:31 PM EST): [...] It seems to be Poison James or Mineral rash. We discuss about avoiding scratching, use [...] Encounters Date Type Department Care Team Description 08/30/2024 9:00 AM EDT Telemedicine [facility] [address] [place] [phone] Olamide Chandler MD Constipation, unspecified constipation type (Primary Dx); Hair loss; Class 3 severe obesity due to excess calories with serious comorbidity and body mass index (BMI) of 45.0 to 49.9 in adult ([facility]); Chronic fatigue 08/30/2024 Travel 08/23/2024 Refill [facility] [address] [place] [address] Olamide Chandler MD Other specified hypothyroidism 08/22/2024 Refill [facility] [address] [place], [place] [phone] Olamide Chandler MD Seasonal allergies 08/14/2024 Telephone [facility] [address] [place] [address] Olamide Chandler MD Nurse Triage 08/09/2024 Orders Only [facility] [address] [place] [phone] Olamide Chandler MD 08/09/2024 Refill [facility] [address] [place] [phone] Olamide Chandler MD Class 3 severe obesity due to excess calories with serious comorbidity and body mass index (BMI) of 45.0 to 49.9 in adult ([facility]) 07/19/2024 Refill [facility] [address] [place] [phone] Olamide Chandler MD Gastroesophageal reflux disease, unspecified whether esophagitis present 07/18/2024 Orders Only [facility] External Provider, [facility] 07/12/2024 Telephone [facility] [address] [place] [phone] Olamide Chandler MD 07/08/2024 Refill [facility] [address] [place] [phone] Olamide Chandler MD Class 3 severe obesity due to excess calories with serious comorbidity and body mass index (BMI) of 45.0 to 49.9 in adult ([facility]) 06/15/2024 Telephone [facility] [address] [place] [phone] Olamide Chandler MD Medication Question 06/14/2024 Telephone [facility] [address] [place] [address] [phone] Olamide Chandler MD Call Back Request 06/08/2024 9:00 AM EST Office Visit [facility] [address] [place] [phone] Kathleen Meade NP Elevated blood pressure reading in office with diagnosis of hypertension (Primary Dx); Excessive cerumen in both ear canals 06/08/2024 Telephone [facility] [address] [place] [phone] TrellLeonor christianson RN 06/05/2024 9:40 AM EST Office Visit [facility] [address] [place] [address] Belia Villarreal MD Catarrh of left eustachian tube (Primary Dx); Essential hypertension 06/05/2024 Telephone [facility] [address] [place] [address] Olamide Chandler MD Prior Authorization ([facility] PA request: Zepbound) from Last 3 Months Immunizations Name Administration [...] 05/31/2024 10:17 AM EST Plan of Treatment Health Maintenance Due Date Last Done Comments CT Colonography 1971 FIT DNA/Cologuard 1971 FIT 1971 FOBT 1971 HIV Screening 1971 Sigmoidoscopy 1971 Alcohol/Substance Use Screening 1983 Family Planning (PISQ) 10/21/1986 Hepatitis C Screening 10/21/1989 COVID-19 Vaccine ( season) 2024 10/28/2023, 06/22/2021, 09/10/2020, Additional history exists SDOH Screening 08/05/2024 08/05/2023 Depression Monitoring (PHQ-9) [...] Completed 03/12/2024, , 04/08/2021, Additional history exists Zoster Vaccines Completed 07/14/2024, 04/13/2024 HIB Vaccines Aged Out No longer eligi [...] Procedure Name Priority Date/Time Associated Diagnosis Comments US RETROPERITONEAL COMPLETE Routine 07/20/2024 12:40 PM EST HEMOGLOBIN A1C Routine 03/29/2024 9:50 AM EDT [...] Recently Relevant to Health Maintenance Results * US Retroperitoneal Complete (07/20/2024 12:40 PM EST) Anatomical Region Laterality Modality Ultrasound 07/20/2024 12:4 0 PM EST Narrative 07/20/2024 12:41 PM EST ? [facility] ?[address] ?[place] [address] ? Ultrasound Report ? Signed ? Patient: Riggins Dan,Laisha I ?MR#: M ?? [id number] ? : 1970 ?Acct:[id number] ? Age/Sex: 53 / F ?ADM Date: /29/25 ? Loc: HO.US ? Attending Dr: Jyotsna VOGEL ? Ordering Physician: Jyotsna Zaldivar ?? Date of Service: 07/18/24 ?? Procedure(s): US retroperitoneal comp ?? Accession Number(s): [id number] ? cc: Olamide Chandler MD; Jyotsna Zaldivar ? CLINICAL HISTORY: N39.43 - Post-void dribbling ? US Renal ? Comparison: None ? Findings: ?? Right kidney normal size and echotexture, 14.2 cm length. No ?? hydronephrosis. Mild expected compensatory hypertrophy. Normal color ?? Doppler. ?? Left kidney: Absent. ? Urinary bladder is unremarkable. Prevoid volume 494 mL. Postvoid volume 11 ?? mL. ?? Right ureteral jet visualized. ? IMPRESSION: ?? The left kidney is absent. The right kidney is normal. ? This document has been electronically signed by: Cuba Ledezma MD on ?? 07/20/2024 12:40:11 ? Dictated By: ?Cuba Ledezma MD ? Signed By: ?<Electronically signed by Cuba Ledezma MD in OV> ? 07/20/24 1241 ? DD/ 1240 ? TD/TT: 07/20/24 1240 ? Electric Train Driver: ? Procedure Note Ana, Gloria - 07/20/2024 [place] [phone] Ultrasound Report Signed Patient: Laisha Ye IMR#: M [id number] : 1970Acct:[id number] Age/Sex: 53 / FADM Date: 07/18/24 Loc: HO.US Attending Dr: Jyotsna VOGEL Ordering Physician: Jyotsna Zaldivar Date of Service: 07/18/24 Procedure(s): US retroperitoneal comp Accession Number(s): [id number] cc: Olamide Chandler MD; Jyotsna Zaldivar CLINICAL HISTORY: N39.43 - Post-void dribbling US Renal Comparison: None Findings: Right kidney normal size and echotexture, 14.2 cm length. No hydronephrosis. Mild expected compensatory hypertrophy. Normal color Doppler. Left kidney: Absent. Urinary bladder is unremarkable. Prevoid volume 494 mL. Postvoid volume 11 mL. Right ureteral jet visualized. IMPRESSION: The left kidney is absent. The right kidney is normal. This document has been electronically signed by: Cuba Ledezma MD on 07/20/2024 12:40:11 Dictated By: Cuba Ledezma MD Signed By: <Electronically signed by Cuba Ledezma MD in OV> 07/20/24 1241 DD/ 1240 TD/TT: 07/20/24 1240 Electric Train Driver: us [facility] External Provider IMG US PROCEDURES Final Result * (ABNORMAL) Lipid Panel with Reflex to Direct LDL (03/29/2024 9:50 AM EDT) Triglycerides 89 <150 mg/dL [facility] Comment:Desirable Triglyceri de: less than 150 mg/dLBorderline High Triglyceride 150-199 mg/dLHigh Triglyceride: 200-499 mg/dLVery High Triglyceride: greater than or equal to 5OO mg/dL Cholesterol 168 <200 mg/dL [facility] Comment:Desirable Cholestero l: less than 200 mg/dLBorderline High Cholesterol: 200-239 mg/dLHigh Cholesterol: greater than 239 mg/dL LDL Cholesterol Calculated 107(H) <100 mg/dL [facility] Comment:Desirable LDL: less than 100 mg/dLNear Optimal/Above Optimal LDL: 110- 129 mg/dLBorderline High LDL: 130-159 mg/dLHigh LDL: 160-189 mg/dLVery High LDL: greater than or equal to 190 mg/dL HDL Cholesterol 44 >40 mg/dL [facility] Comment:Desirable HDL: great er than 40 mg/dL Note: This HDL assay may give artificially low results in patients with liver disease. Blood 03/29/2024 9:50 AM EDT 03/29/2024 11:08 AM EDT us Olamide Stevens MD LAB BLOOD ORDERABLES Final Result [facility] [address] [place] [address] [phone] * Hemoglobin A1c (03/29/2024 9:50 AM EDT) Hemoglobin A1c 6.0 <6.0 % [facility] Comment:Hemoglobin A1C Refer ence Range Adults: 4.8 - 6.0 % Non diabetic: < 6.0 % Goal: < 7.0 %Additional Action Suggested: > 8.0 %Note: Hemoglobin A1c results are invalid for patients with abnormal amounts of HbF. Blood transfusions may impact the HbA1c concentration in the patient sample. Estimated Average Glucose 126 mg/dL [facility] Comment:eAG = Estimated ave rage glucose which is %A1C expressed asaverage glucose, using the formula of the M5P-WdwgmgjPqwnkeb Glucose study (ADAG), Diabetes Care, Vol.31,#8,Jan. 2007 Blood Venous blood specimen / Unknown 03/29/2024 9:50 AM EDT 03/29/2024 11:08 AM EDT us Olamide Stevens MD LAB BLOOD ORDERABLES Final Result [facility] [address] [place] [address] [phone] * BI Mammogram Screening Tomosynthesis Bilateral (09/15/2023 8:57 AM EDT) Anatomical Region Laterality Modality Breast Bilateral Mammography 09/15/2023 8:57 AM EDT Narrative 10/11/2023 6:12 AM EDT ? [facility] [place] ? [address] ?[place] [address] ? Mammography Report ? Signed ? Patient: Riggins Dan,Laisha I ?MR#: M ?? [id number] ? : 1970 ?Acct:[id number] ? Age/Sex: 52 / F ?ADM Date: 03/28/24 ? Loc: HO.MAMMO ? Attending Dr: Olamide Stevens MD ? Ordering Physician: Olamide Chandler MD ?Results: ?? 1Negative ? Date of Service: 09/15/23 ?Follow Up: 1 Year From Orig ?? inal Mammogram ? Procedure(s): MM tomosynthesis screening BI ?? Accession Number(s): [id number] ? cc: Olamide Chandler MD ? EXAMINATION: [...] 0608 ? DD/ 0857 ? TD/TT: ? Electric Train Driver: ? Procedure Note Donotuseinterpreter, Image - 10/11/2023 [place] [facility] [address] [place] [address] Mammography Report Signed Patient: Laisha Ye IMR#: M [id number] : 1970Acct:[id number] Age/Sex: 52 / FADM Date: 09/15/23 Loc: HOKathyMAMMO Attending Dr: Olamide Stevens MD Ordering Physician: Olamide Chandler MDResults: 1Negative Date of Service: 09/15/23Follow Up: 1 Year From Orig inal Mammogram Procedure(s): MM tomosynthesis screening BI Accession Number(s): [id number] cc: Olamide Chandler MD EXAMINATION: MM SCREENING [...] in OV> 10/11/23 0608 DD/ 0857 TD/TT: Electric Train Driver: Olamide Stevens MD IMG BI PROCEDURES Fin al Result * Image-Guided Pap with Age-Based Screening??with CT/NG,??Trichomonas (10/29/2022 11:29 AM EDT) Comment [facility] Comment: This order for age-based cervical cancer and STI screening follows ACOG guidelines(PB 168, 140, TUG407). See individual assays for performing site location. Clinical Information: 52 Y/O F NO PREVIOUS ABNORMALITY C [employer] LMP: NONE GIVEN [employer] Prev. PAP: NONE GIVEN [employer] Prev. BX: NONE GIVEN [facility] SOURCE: None given [facility] Statement Of Adequacy: [facility] Comment: Satisfactory for evaluation. Endocervical/transformation zone component absent. Interpretation/Re sult: Negative for intraepithelial lesion or malignancy. [facility] COMMENT: This Pap test has been evaluated with computer assisted technology. [facility] Trauma Counsellor: Amalia [employer] Comment: EXJ, CT(ASCP) CT Screening Location: [place] [address] (Always Message) [facility] Comment: EXPLANATORY NOTE: The Pap is a [...] HPV nRNA E6/E7 Not Detected Not Detected [facility] Comment: Methodology: Camera Engineer-Mediated Amplification This assay detects E6/E7 viral messenger RNA (mRNA) from 14 high-risk HPV types (16,18,31,33,35,39,45,51,52,56,58,59,66,68). Cervical sources are required for HPV testing. If a vaginal source from a patient who has had a total hysterectomy with removal of cervix was submitted, please contact the testing laboratory for alternative testing options. For additional information, please refer to http://RedHelper.Innovate2/faq/FAG594w8 (This link if provided for information/ educational purposes only.) Chlamydia trachomatis RNA, TMA, Urogenital NOT DETECTED NOT DETECTED [facility] Neisseria gonorrhoeae RNA, TMA, Urogenital NOT DETECTED NOT DETECTED [facility] (Always Message) [facility] [employer] [facility] Comment: The analytical performance characteristics of this assay, when used to test SurePath(TM) specimens have been determined by [facility]. The modifications have not been cleared or approved by the FDA. This assay has been validated pursuant to the CLIA regulations and is used for clinical purposes. For additional information, please refer to https://Seeker Wireless/faq/QPN641 (This link is being provided for information/ educational purposes only.) Trichomonas vaginalis, QL, TMA, PAP Vial NOT DETECTED NOT DETECTED [facility] Comment: The analytical performance characteristics of this assay have been determined by [facility]. The modifications have not been cleared or approved by the FDA. This assay has been validated pursuant to the CLIA regulations and is used for clinical purposes. For additional information, please refer to http://RedHelper.Innovate2/ faq/Trichomonastma (This link is being provided for information/ educational purposes only.) Pap Vial 10/29/2022 11:2 9 AM EDT 10/31/2022 4:55 PM EDT us Olamide Stevens MD LAB CYTOLOGY ORDERABL ES Final Result [facility] [address], [place] [address] [facility] [address] [place] [phone] from Last 3 Months or Most Recently Relevant to Health Maintenance Insurance [facility] Care Teams Disability Insurance Claim Examiner Relationship Specialty Start Date End Date Olamide Chandler MD [address] [place] [phone] PCP - General Family Medicine 07/28/20
--- OUTSIDE RECORDS SUMMARY | 2024-08-31 09:24 | XMS_ITS | Encounter Summary ---
Author Organization [employer] Address [address] [facility] [address]t [place] [address] Care Team Providers Care Electro Mechanical Designer Name Role Phone Olamide Chandler MD Primary Care Provide r Reason for Visit * Reason Comments Med Refill Encounter Details Date Type Department Care Team ([facility] st Contact Info) Description 08/22/2024 Refill [facility] [address] [place], [place] [phone] Olamide Chandler MD [address] [place], [place] [phone] Seasonal allergies Social History Tobacco Use Types Packs/Day Years [...] as of this encounter Visit Diagnoses Diagnosis Seasonal allergies Allergic rhinitis, cause unspecified documented in this encounter Additional Health Concerns Assessment Noted Time PHQ-9 Depression Total Score: 25 024 9:17 AM EDT documented as of this encounter Care Teams Electro Mechanical Designer Relationship Specialty Start Date End Date Olamide Chandler MD [address] [place] [phone] PCP - General Family Medicine 07/28/20 documented as of this encounter
--- OUTSIDE RECORDS SUMMARY | 2024-08-31 09:24 | XMS_ITS | Encounter Summary ---
Author Organization [employer] Address [address] [facility] [address] [place] [address] Care Team Providers Care Supervisor Finishing Department Name Role Phone Olamide Chandler MD Primary Care Provide r Encounter Details Date Type Department Care Team (Late st Contact Info) Description 08/30/2024 9:00 AM EDT Telemedicine [facility] MEDICINE [address], [place] [phone] Olamide Chandler MD [address] [place], [place] [phone] Constipation, unspecified constipation type (Primary Dx); Hair loss; Class 3 severe obesity due to excess calories with serious comorbidity and body mass index (BMI) of 45.0 to 49.9 in adult (CMS/HCC); Chronic fatigue Social History Tobacco Use Types Packs/Day Years [...] AM EDT documented as of this encounter Progress Notes * Olamide Stevens MD - 08/30/2024 9:00 AM EDT SUBJECTIVE: Laisha Dan is a 53 y.o. year old female who presents for Follow up . 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, vomiting, diarrhea she does report mild abdominal discomfort and constipation for which she is taking medication that is helping her Patient today also complaining of hair loss and fatigue Social History Social History Narrative Not on file Patient Active Problem List Diagnosis Asthma Bilateral primary osteoarthritis of knee Hypothyroidism Impaired glucose tolerance Menstrual migraine Mild intermittent asthma Morbid obesity (CMS/HCC) Obstructive sleep apnea syndrome Renal agenesis Seasonal allergic rhinitis Essential hypertension Abnormal gait Atypical chest pain Change in mole Dyspnea on exertion Excessive cerumen in ear canal Joint pain in both hands Multiple joint pain Seasonal allergies Skin tag Osteoma of skull Visual impairment Vitamin D deficiency Congenital solitary kidney History of cerebral meningioma Meningioma, cerebral (CMS/HCC) Persistent headaches Encounter for Papanicolaou smear for cervical cancer screening Lymphadenitis, acute Acute pain of right shoulder Prediabetes Influenza A GERD (gastroesophageal reflux disease) Rash of body Mixed stress and urge urinary incontinence Other constipation Dry skin dermatitis Class 3 severe obesity due to excess calories with serious comorbidity and body mass index (BMI) of45.0 to 49.9 in adult ([facility]) Constipation Hair loss Chronic fatigue No family history on file. Review of Systems Constitutional: Positive for fatigue. Negative for activity change, appetite change, chills, diaphoresis, fever and unexpected weight change. HENT: Negative. Respiratory: Negative. Cardiovascular: Negative. Gastrointestinal: Positive for abdominal distention and constipation. Negative for abdominal pain, anal bleeding, blood in stool, diarrhea, nausea, rectal pain and vomiting. OBJECTIVE: Follow Up: No follow-ups on file. Current Outpatient Medications on File Prior to Visit Medication Sig Dispense Refill albuterol 108 (90 Base) MCG/ACT inhaler Inhale 2 puffs every 4 (four) hours if needed for wheezing or shortness of breath. 18 g 3 ammonium lactate (Lac-Hydrin) 12 % lotion Apply topically if needed for dry skin. 225 g 1 buPROPion XL (Wellbutrin XL) 150 MG 24 hr tablet TAKE 1 TABLET BY MOUTH EVERY MORNING DIRECTED carvedilol (Coreg) 6.25 MG tablet Take 1 tablet (6.25 mg) by mouth with breakfast and with evening meal. 60 tablet 11 Cholecalciferol (Vitamin D) 50 MCG (2000 UT) capsule TAKE 1 CAPSULE BY MOUTH EVERY DAY 90 capsule 1 citalopram (CeleXA) 10 MG tablet TAKE 1 TABLET BY MOUTH EVERY DAY IN ADDITION TO 20 MG TABLET citalopram (CeleXA) 20 MG tablet Take 20 mg by mouth in the morning. clobetasol (Temovate) 0.05 % cream Apply topically 2 times daily. 45 g 1 cyclobenzaprine (Flexeril) 10 MG tablet Take 1 tablet (10 mg) by mouth 3 times daily for 10 days. 30 tablet 0 diphenhydrAMINE (BENADryl) 25 MG capsule Take 1 capsule (25 mg) by mouth every 6 (six) hours if needed for itching. May take 1-2 capsules prn rash or itching 40 capsule 1 fluticasone (Flonase) 50 MCG/ACT nasal spray SHAKE LIQUID AND USE 2 SPRAYS IN EACH NOSTRIL EVERY MORNING NEEDED FOR ALLERGIES 48 g 0 levothyroxine (Synthroid, Levoxyl) 75 MCG tablet TAKE 1 TABLET BY MOUTH IN THE MORNING 90 tablet 0 loratadine (Claritin) 10 MG tablet Take 1 tablet (10 mg) by mouth in the morning. 30 tablet 2 omeprazole (PriLOSEC) [address] capsule TAKE 1 CAPSULE BY MOUTH EVERY DAY BEFORE BREAKFAST 90 capsule 0 pseudoephedrine (Sudafed) 30 MG tablet Take 1 tablet (30 mg) by mouth every 4 (four) hours if needed for congestion for up to 10 days. 30 tablet 0 sodium chloride ([place] Nasal [place]) 0.65 % nasal spray 1-2 sprays on each nostril every 2-3 hours as needed for nasal congestion 30 mL 1 [DISCONTINUED] Zepbound 2.5 MG/0.5ML solution auto-injector ADMINISTER 2.5 MG UNDER THE SKIN 1 TIMEEVERY WEEK 2 mL 0 No current facility-administered medications on file prior to visit. Problem List Items Addressed This Visit Constipation - Primary Advised to drink more water and increase fiber in her diet I also advised for her to walk more I will prescribe for patient Senokot to take daily for constipation TSH will be checked with labs Relevant Medications senna-docusate (Senokot S) 8.6-50 MG tablet Hair loss Patient has been followed by dermatology I will order blood work to rule out thyroid issues Relevant Orders Vitamin B12/Folate, Serum Panel Comprehensive Metabolic Panel CBC auto differential Vitamin D, 25-Hydroxy, Total, Immunoassay Class 3 severe obesity due to excess calories with serious comorbidity and body mass index (BMI) of45.0 to 49.9 in adult ([facility]) Extensive counseling about healthy diet and exercise done today I will increase her step down to 5 mg weekly Relevant Medications Tirzepatide-Weight Management (Zepbound) 5 MG/0.5ML solution auto-injector Chronic fatigue Blood work ordered today patient will be informed about results documented in this encounter Miscellaneous Notes * Assessment & Plan Note - Olamide Stevens MD - 08/30/2024 9:38 AM EDT Associated Problem(s): Class 3 severe obesity due to excess calories with serious comorbidity and body mass index (BMI) of 45.0 to 49.9 in adult ([facility]) Extensive counseling about healthy diet and exercise done today I will increase her step down to 5 mg weekly * Assessment & Plan Note - Olamide Stevens MD - 08/30/2024 9:38 AM EDT Associated Problem(s): Chronic fatigue Blood work ordered today patient will be informed about results * Assessment & Plan Note - Olamide Stevens MD - 08/30/2024 9:37 AM EDT Associated Problem(s): Hair loss Patient has been followed by dermatology I will order blood work to rule out thyroid issues * Assessment & Plan Note - Olamide Stevens MD - 08/30/2024 9:37 AM EDT Associated Problem(s): Constipation Advised to drink more water and increase fiber in her diet I also advised for her to walk more I will prescribe for patient Senokot to take daily for constipation TSH will be checked with labs documented in this encounter Plan of Treatment Scheduled Orders Name Type Priority Associated Diagnoses Orde r Schedule Vitamin B12/Folate, Serum Panel Lab Routine Hair loss Expected: 08/30/2024, Expires: 08/30/2025 Comprehensive Metabolic Panel Lab Routine Hair loss Expected: 08/30/2024 (Approximate), Expires: 08/30/2025 CBC auto differential Lab Routine Hair loss Expected: 08/30/2024 (Approximate), Expires: 08/30/2025 Vitamin D, 25-Hydroxy, Total, Immunoassay Lab Routine Hair loss Expected: 08/30/2024 (Approximate), Expires: 08/30/2025 documented as of this encounter Visit Diagnoses Diagnosis Constipation, unspecified constipation type- Primary Hair loss Unspecified alopecia Class 3 severe obesity due to excess calories with serious comorbidity and body mass index (BMI) of 45.0 to 49.9 in adult (CMS/HCC) Chronic fatigue Other malaise and fatigue documented in this encounter Additional Health Concerns Assessment Noted Time PHQ-9 Depression Total Score: 25 024 9:17 AM EDT documented as of this encounter Care Teams Supervisor Finishing Department Relationship Specialty Start Date End Date Olamide Chandler MD [address] [place] [phone] PCP - General Family Medicine 07/28/20 documented as of this encounter
[2024-08-31 11:23] LABS: MANUAL DIFF FLAG NO
[2024-08-31 11:38] LABS: Basophils Percent Auto 0.6 % (0-2); Eosinophils Absolute Auto 0.1 X10*3/uL (0.0-0.4); Eosinophils Percent Auto 0.9 % (0-4); Hematocrit 40.6 % (37.0-47.0); Hemoglobin 13.1 g/dl (12.0-16.0); Imm Gran Abs Auto 0.01 X10*3/uL (0.00-0.03); Imm Gran Pct Auto 0.2 % (0.0-0.4); Lymphocytes Absolute Auto 1.6 X10*3/uL (1.2-4.9); Lymphocytes Percent Auto 24.6 % (20-40); Mean Corpuscular HGB Conc 32.3 g/dl (31.0-35.0); Mean Corpuscular Hemoglobin 28.3 pg (27.0-33.0); Mean Corpuscular Volume 87.7 fL (80.0-98.0); Monocytes Absolute Auto 0.5 X10*3/uL (0.1-1.2); Monocytes Percent Auto 7.9 % (2-11); Neutrophils Absolute Auto 4.2 x10*3/uL (2.0-8.3); Neutrophils Percent Auto 65.8 % (45-73); Platelet Count 335 X10*3/uL (160-400); Red Blood Count 4.63 X10*6/uL (4.20-5.50); Red Cell Distribution Width 12.6 % (11.0-16.0); White Blood Count 6.3 X10*3/uL (4.8-10.8)
[2024-08-31 12:10] LABS: Alanine Aminotransferase 15 U/L (0-31); Albumin Level 3.8 g/dL (3.5-5.0); Alkaline Phosphatase 73 U/L (39-117); Anion Gap 11 (12-20); Aspartate Amino Transferase 26 U/L (5-31); Bilirubin Total 0.5 mg/dL (0.0-1.0); Blood Urea Nitrogen 16 mg/dL (9-16); Calcium 9.2 mg/dL (8.4-10.2); Carbon Dioxide 27 mmol/L (22-29); Chloride 106 mmol/L (96-108); Estimated Glomerular Filt Rate > 60; Glucose Random 99 mg/dL (60-115); Potassium 4.1 mmol/L (3.3-5.1); Sodium 140 mmol/L (135-145)
[2024-08-31 12:13] LABS: Vitamin D 25-OH Total 45.4 ng/mL (>30)
[2024-08-31 12:27] LABS: Folate 12.5 ng/mL (> or = 4.0); Vitamin B12 593 pg/mL (200-900)
== END 2024-08-31 08:59 | disposition home or self-care (01) ==
LOC: HO.HHCL 08:58
PROVIDERS: Visit Provider Internal Medicine
DX: L65.9 Nonscarring hair loss, unspecified (principal)
CPT/HCPCS: 36415; 80053; 82306; 82607; 82746; 85025

== ENCOUNTER 2024-09-20 06:05 | Emergency (ER) | payer OTHER, SELFPAY ==
[2024-09-20 06:08] VITALS: BP 129/79; PULSE 88; RESP 20; TEMP 36.9; O2SAT 100; BMI 40.2
[2024-09-20 06:24] LABS: Basophils Percent Auto 0.5 % (0-2); Eosinophils Absolute Auto 0.1 X10*3/uL (0.0-0.4); Eosinophils Percent Auto 1.4 % (0-4); Hematocrit 39.2 % (37.0-47.0); Hemoglobin 13.2 g/dl (12.0-16.0); Imm Gran Abs Auto 0.03 X10*3/uL (0.00-0.03); Imm Gran Pct Auto 0.4 % (0.0-0.4); Lymphocytes Absolute Auto 1.5 X10*3/uL (1.2-4.9); Lymphocytes Percent Auto 18.9 % (20-40); MANUAL DIFF FLAG NO; Mean Corpuscular HGB Conc 33.7 g/dl (31.0-35.0); Mean Corpuscular Hemoglobin 28.9 pg (27.0-33.0); Mean Corpuscular Volume 85.8 fL (80.0-98.0); Mean Platelet Volume 9.1 fL (9.4-12.3); Monocytes Absolute Auto 0.7 X10*3/uL (0.1-1.2); Monocytes Percent Auto 8.7 % (2-11); Neutrophils Absolute Auto 5.6 x10*3/uL (2.0-8.3); Neutrophils Percent Auto 70.1 % (45-73); Platelet Count 326 X10*3/uL (160-400); Red Blood Count 4.57 X10*6/uL (4.20-5.50); Red Cell Distribution Width 12.4 % (11.0-16.0); White Blood Count 7.9 X10*3/uL (4.8-10.8)
--- NOTE | 2024-09-20 06:43 | PC.NURSE ---
Pt changed into hospital attire, labs collected, ua sent, pt awaiting to be seen
[2024-09-20 06:44] LABS: Alanine Aminotransferase 9 U/L (0-31); Albumin Level 3.9 g/dL (3.5-5.0); Alkaline Phosphatase 73 U/L (39-117); Anion Gap 11 (12-20); Aspartate Amino Transferase 18 U/L (5-31); Bilirubin Total 0.6 mg/dL (0.0-1.0); Blood Urea Nitrogen 9 mg/dL (9-16); Carbon Dioxide 23 mmol/L (22-29); Chloride 109 mmol/L (96-108); Estimated Glomerular Filt Rate > 60; Glucose Random 114 mg/dL (60-115); Potassium 3.9 mmol/L (3.3-5.1); Sodium 139 mmol/L (135-145); Total Protein 7.5 g/dL (6.5-8.0)
--- OUTSIDE RECORDS SUMMARY | 2024-09-20 06:44 | XMS_ITS | Clinical Summary ---
Author Organization [employer] Address [address] [facility] 7[address] [place] [address] Care Team Providers Care Applications Scientist Name Role Phone Olamide Chandler MD Primary [...] MG TABLET 07/28/19 23 Active sodium chloride ([facility]) 0.65 % nasal sprayIndications: COVID-19 1-2 sprays [...] (BMI) of 45.0 to 49.9 in adult ([facility]) Inject 0.5 mL (5 mg) under the [...] (BMI) of 45.0 to 49.9 in adult ([facility]) ADMINISTER 2.5 MG UNDER THE SKIN 1 [...] It seems to be Poison James or Gray rash. We discuss about avoiding scratching, use [...] Encounters Date Type Department Care Team Description 09/20/2024 Refill [facility] [address] [place] [address] Olamide Chandler MD Vitamin D deficiency 09/19/2024 Telephone [facility] [address] [place], [place] [phone] Olamide Chandler MD Nurse Triage 09/03/2024 Telephone [facility] [address] [place], [place] [phone] Olamide Chandler MD Results 08/30/2024 9:00 AM EDT Telemedicine [facility] [address] [place] [address] Olamide Chandler MD Constipation, unspecified constipation type (Primary Dx); Hair loss; Class 3 severe obesity due to excess calories with serious comorbidity and body mass index (BMI) of 45.0 to 49.9 in adult ([facility]); Chronic fatigue 08/30/2024 Travel 08/23/2024 Refill [facility] [address] [place] [address] Olamide Chandler MD Other specified hypothyroidism 08/22/2024 Refill [facility] [address] [place] [address] Olamide Chandler MD Seasonal allergies 08/14/2024 Telephone [facility] [address] [place] [address] Olamide Chandler MD Nurse Triage 08/09/2024 Orders Only [facility] [address] [place] [address] Olamide Chandler MD 08/09/2024 Refill [facility] [address] [place] [address] Olamide Chandler MD Class 3 severe obesity due to excess calories with serious comorbidity and body mass index (BMI) of 45.0 to 49.9 in adult ([facility]) 07/19/2024 Refill [facility] [address] [place] [address] Olamide Chandler MD Gastroesophageal reflux disease, unspecified whether esophagitis present 07/18/2024 Orders Only [facility] External Provider, [facility] 07/12/2024 Telephone [facility] [address] [place] [address] Olamide Chandler MD 07/08/2024 Refill [facility] [address] [place] [address] Olamide Chandler MD Class 3 severe obesity due to excess calories with serious comorbidity and body mass index (BMI) of 45.0 to 49.9 in adult ([facility]) from Last 3 Months Immunizations Name Administration [...] (PHQ-9) 09/09/2024 03/12/2024, 03/12/2024 Mammogram 09/14/2024 09/15/2023, /08/2022, 09/09/2022, Additional history exists Depression Screening 03/12/2025 [...] Procedure Name Priority Date/Time Associated Diagnosis Comments VITAMIN D,25-OH,TOTAL,IA Routine 08/31/2024 9:00 AM EDT Hair loss CBC WITH AUTO DIFFERENTIAL Routine 08/31/2024 9:00 AM EDT Hair loss COMPREHENSIVE METABOLIC PANEL Routine 08/31/2024 9:00 AM EDT Hair loss VITAMIN B12/FOLATE, SERUM PANEL Routine 08/31/2024 9:00 AM EDT Hair loss US RETROPERITONEAL COMPLETE Routine 07/20/2024 12:40 PM [...] Recently Relevant to Health Maintenance Results * Vitamin D, 25-Hydroxy, Total, Immunoassay (08/31/2024 9:00 AM EDT) Vitamin D 25-OH Total 45.4 >30 ng/mL [facility] Comment: Health Based Reference Values*< 20 ??ng/mL ??Klrkkyydt18-57 ng/mL ??Insufficient> 30 ??ng/mL ??Sufficient*Maddie SORENSON. N Engl J Med. 2007;357:266-280There is no well-established upper level of normal vitamin Dlevels. Some laboratories use 50 ng/mL as an upper limit ofnormal. However, toxicity is patient-dependent and may occurat any level. Careful correlation with the patient'spresentation is necessary and, if there is concern forvitamin D toxicity, treatment should be consideredirrespective of the serum level.Care must be taken in interpreting Vitamin D results fromdifferent laboratories and methodologies. ??Published datademonstrated that results from patients undergoinghemodialysis may show a negative bias when tested withvarious automated 25-OH vitamin D assays when compared toLC- MS/MS.When testing samples from patients whose predominant form ofVitamin D is Vitamin D2, such as patients receiving VitaminD2 supplementation, results that are subtherapeutic shouldbe confirmed with another method such as LC-MS/MS. Blood Venous blood specimen / Unknown 08/31/2024 9:00 AM EDT 08/31/2024 11:15 AM EDT Olamide Stevens MD LAB BLOOD ORDERABLES Final Result Performing Organization Address [facility]/ZIP Co de Phone Number [facility] [address] [place] [address] [phone] * Vitamin B12/Folate, Serum Panel (08/31/2024 9:00 AM EDT) [facility] Vitamin B12 593 200 - 900 pg/mL [facility] Comment:NORMAL 200-900 PG/ML INDETERMINATE 160-199 PG/ML DEFICIENT < 160 PG/ML Folate 12.5 > or = 4.0 ng/mL [facility] Comment:Reference Values:> o r = 4.0 ng/mL< 4.0 ng/mL suggests folate deficiency Methotrexate, aminopterin and folinic acid(leucovorin) are chemotherapeutic agents whose molecularstructures are similar to folate; therefore, the Architectfolate assay cannot be used for patients using these drugs. Blood Venous blood specimen / Unknown 08/31/2024 9:00 AM EDT 08/31/2024 11:15 AM EDT Olamide Stevens MD LAB BLOOD ORDERABLES Final Result Performing Organization Address City/[facility]/ZIP Co de Phone Number [facility] [address] [place] [phone] [phone] * CBC auto differential (08/31/2024 9:00 AM EDT) [facility] White Blood Count 6.3 4.8 - 10.8 X10*3/uL [facility] Red Blood Count 4.63 4.20 - 5.50 X10*6/uL [facility] Hemoglobin 13.1 12.0 - 16.0 g/dl [facility] Hematocrit 40.6 37.0 - 47.0 % [facility] Mean Corpuscular Volume 87.7 80.0 - 98.0 fL [facility] Mean Corpuscular Hemoglobin 28.3 27.0 - 33.0 pg [facility] Mean Corpuscular HGB Conc 32.3 31.0 - 35.0 g/dl [facility] Red Cell Distribution Width 12.6 11.0 - 16.0 % [facility] Platelet Count 335 160 - 400 X10*3/uL [facility] Mean Platelet Volume 10.0 9.4 - 12.3 fL [facility] Neutrophils Percent Auto 65.8 45 - 73 % [facility] Imm Gran Pct Auto 0.2 0.0 - 0.4 % [facility] Lymphocytes Percent Auto 24.6 20 - 40 % [facility] Monocytes Percent Auto 7.9 2 - 11 % [facility] Eosinophils Percent Auto 0.9 0 - 4 % [facility] Basophils Percent Auto 0.6 0 - 2 % [facility] NRBC Pct Auto 0.0 0.0 - 0.2 /100WBC [facility] Neutrophils Absolute Auto 4.2 2.0 - 8.3 x10*3/uL [facility] Imm Gran Abs Auto 0.01 0.00 - 0.03 X10*3/uL [facility] Lymphocytes Absolute Auto 1.6 1.2 - 4.9 X10*3/uL [facility] Monocytes Absolute Auto 0.5 0.1 - 1.2 X10*3/uL [facility] Eosinophils Absolute Auto 0.1 0.0 - 0.4 X10*3/uL [facility] Basophils Absolute Auto 0.0 0.0 - 0.2 X10*3/uL [facility] NRBC Abs Auto 0.000 0.0 - 0.012 X10*3/uL [facility] Blood Venous blood specimen / Unknown 08/31/2024 9:00 AM EDT 08/31/2024 11:15 AM EDT us Olamide Stevens MD LAB BLOOD ORDERABLES Final Result [facility] [address] [place] [address] [phone] * (ABNORMAL) Comprehensive Metabolic Panel (08/31/2024 9:00 AM EDT) Sodium 140 135 - 145 mmol/L [facility] Potassium 4.1 3.3 - 5.1 mmol/L [facility] Chloride 106 96 - 108 mmol/L [facility] Carbon Dioxide 27 22 - 29 mmol/L [facility] Anion Gap 11(L) 12 - 20 [facility] Urea Nitrogen (BUN) 16 9 - 16 mg/dL [facility] Creatinine, Serum 0.82 0.5 - 1.4 mg/dL [facility] Estimated Glomerular Filt Rate >60 [facility] Comment:Chronic Kidney Disea se: Estimated GFR < 60 mL/min/1.68l3Klsvln Kidney Disease: Estimated GFR < 15 mL/min/1.73m2 Glucose 99 60 - 115 mg/dL [facility] Calcium 9.2 8.4 - 10.2 mg/dL [facility] Bilirubin, Total 0.5 0.0 - 1.0 mg/dL [facility] Aspartate Amino Transferase 26 5 - 31 U/L [facility] Alanine Aminotransferase 15 0 - 31 U/L [facility] Total Protein 8.0 6.5 - 8.0 g/dL [facility] Albumin Level 3.8 3.5 - 5.0 g/dL [facility] Alkaline Phosphatase 73 39 - 117 U/L [facility] Blood Venous blood specimen / Unknown 08/31/2024 9:00 AM EDT 08/31/2024 11:15 AM EDT us Olamide Stevens MD LAB BLOOD ORDERABLES Final Result [facility] [address] [facility] [place] [address] [phone] * US Retroperitoneal Complete (07/20/2024 12:40 PM EST) Anatomical Region Laterality Modality Ultrasound 07/20/2024 12:4 0 PM EST Narrative 07/20/2024 12:41 PM EST ? [facility] ?[address] ?[place] [address] ? Ultrasound Report ? Signed ? Patient: Riggins Dan,Laisha I ?MR#: M ?? [id number] ? : 1970 ?Acct:[id number] ? Age/Sex: 53 / F ?ADM Date: 07/18/24 ? Loc: HO.US ? Attending Dr: Jyotsna VOGEL ? Ordering Physician: Jyotsna Zaldivar ?? Date of Service: 07/18/24 ?? Procedure(s): US retroperitoneal comp ?? Accession Number(s): [id number] ? cc: Olamide Chandler MD; Jyotsna Zaldivar [...] DD/ 1240 ? TD/TT: 07/20/24 1240 ? Nut Orchardist: ? Procedure Note Ana, Image - 07/20/2024 [address] [place] [address] Ultrasound Report Signed Patient: Laisha Ye [facility]#: M [id number] : 1970Acct:[id number] Age/Sex: 53 / FADM Date: 07/18/24 Loc: HO.US [facility] Ordering Physician: Jyotsna Zaldivar Date of Service: 07/18/24 Procedure(s): US retroperitoneal comp Accession Number(s): [id number] cc: Olamide Chandler MD; Jyotsna Zaldivar [facility] CLINICAL HISTORY: N39.43 - Post-void dribbling US [...] 07/20/24 1241 DD/ 1240 TD/TT: 07/20/24 1240 Nut Orchardist: [facility] External Provider IMG US PROCEDURES Final Result * (ABNORMAL) Lipid Panel with Reflex to Direct LDL (03/29/2024 9:50 AM EDT) Triglycerides 89 <150 mg/dL [facility] Comment:Desirable Triglyceri de: less than 150 mg/dLBorderline High Triglyceride 150-199 mg/dLHigh Triglyceride: 200-499 mg/dLVery High Triglyceride: greater than or equal to 5OO mg/dL Cholesterol 168 <200 mg/dL [facility] Comment:Desirable Cholestero l: less than 200 mg/dLBorderline High Cholesterol: 200-239 mg/dLHigh Cholesterol: greater than 239 mg/dL LDL Cholesterol Calculated 107(H) <100 mg/dL [facility] Comment:Desirable LDL: less than 100 mg/dLNear Optimal/Above Optimal LDL: 110- 129 mg/dLBorderline High LDL: 130-159 mg/dLHigh LDL: 160-189 mg/dLVery High LDL: greater than or equal to 190 mg/dL HDL Cholesterol 44 >40 mg/dL [facility] Comment:Desirable HDL: great er than 40 mg/dL Note: This HDL assay may give artificially low results in patients with liver disease. Blood 03/29/2024 9:50 AM EDT 03/29/2024 11:08 AM EDT us Olamide Stevens MD LAB BLOOD ORDERABLES Final Result Performing Organization Address [facility] Co de Phone Number [facility] [address] [place] [phone] * Hemoglobin A1c (03/29/2024 9:50 AM EDT) Hemoglobin A1c 6.0 <6.0 % [facility] Comment:Hemoglobin A1C Refer ence Range Adults: 4.8 - 6.0 % Non diabetic: < 6.0 % Goal: < 7.0 %Additional Action Suggested: > 8.0 %Note: Hemoglobin A1c results are invalid for patients with abnormal amounts of HbF. Blood transfusions may impact the HbA1c concentration in the patient sample. Estimated Average Glucose 126 mg/dL [facility] Comment:eAG = Estimated ave rage glucose which is %A1C expressed asaverage glucose, using the formula of the Y4P-YiazsmvUpgrghi Glucose study (ADAG), Diabetes Care, Vol.31,#8,Jan. 2007 Blood Venous blood specimen / Unknown 03/29/2024 9:50 AM EDT 03/29/2024 11:08 AM EDT us Olamide Stevens MD LAB BLOOD ORDERABLES Final Result Performing Organization Address [facility] Co de Phone Number [facility] [address] [place] [phone] * BI Mammogram Screening Tomosynthesis Bilateral (09/15/2023 8:57 AM EDT) Anatomical Region Laterality Modality Breast Bilateral Mammography 09/15/2023 8:57 AM EDT Narrative 10/11/2023 6:12 AM EDT ? [facility] ? [address] ?[place], [place] [address] ? Mammography Report ? Signed ? Patient: Riggins Dan,Laisha I ?MR#: M ?? [id number] ? : 1970 ?Acct:[id number] ? Age/Sex: 52 / F ?ADM Date: 09/15/23 ? Loc: HO.MAMMO ? Attending Dr: Olamide Stevens MD ? Ordering Physician: Olamide Chandler MD ?Results: ?? 1Negative ? Date of Service: 09/15/23 ?Follow Up: 1 Year From Orig ?? inal Mammogram ? Procedure(s): MM tomosynthesis screening BI ?? Accession Number(s): [id number] ? cc: Olamide Chandler MD ? EXAMINATION: [...] 0608 ? DD/ 0857 ? TD/TT: ? Nut Orchardist: ? Procedure Note Ana, Image - 10/11/2023 [place] [address] [place] [address] Mammography Report Signed Patient: Laisha Ye [facility]#: M [id number] : 1970Acct:[id number] Age/Sex: 52 / FADM Date: 09/15/23 Loc: HO.MAMMO Attending Dr: Olamide Stevens MD Ordering Physician: Olamide Chandler MDResults: 1Negative Date of Service: 09/15/23Follow Up: 1 Year From Orig inal Mammogram Procedure(s): MM tomosynthesis screening BI Accession Number(s): [id number] cc: Olamide Chandler MD EXAMINATION: MM SCREENING [...] in OV> 10/11/23 0608 DD/ 0857 TD/TT: Nut Orchardist: Olamide Stevens MD IMG BI PROCEDURES Fin al Result * Image-Guided Pap with Age-Based Screening??with CT/NG,??Trichomonas (10/29/2022 11:29 AM EDT) Comment [facility] Comment: This order for age-based cervical cancer and STI screening follows ACOG guidelines(PB 168, 140, GZL187). See individual assays for performing site location. Clinical Information: 52 Y/O F NO PREVIOUS ABNORMALITY C [facility] LMP: NONE GIVEN [facility] Prev. PAP: NONE GIVEN [facility] Prev. BX: NONE GIVEN [facility] SOURCE: None given [facility] Statement Of Adequacy: [facility] Comment: Satisfactory for evaluation. Endocervical/transformation zone component absent. Interpretation/Re sult: Negative for intraepithelial lesion or malignancy. [facility] COMMENT: This Pap test has been evaluated with computer assisted technology. [facility] Health Claims Examiner: [employer]t Comment: EXJ, CT(ASCP) CT Screening Location: [place] [address] (Always Message) [facility]IR[facility] Comment: EXPLANATORY NOTE: The Pap is a [...] HPV nRNA E6/E7 Not Detected Not Detected [facility] Comment: Methodology: Costume Mistress-Mediated Amplification This assay detects E6/E7 viral messenger RNA (mRNA) from 14 high-risk HPV types (16,18,31,33,35,39,45,51,52,56,58,59,66,68). Cervical sources are required for HPV testing. If a vaginal source from a patient who has had a total hysterectomy with removal of cervix was submitted, please contact the testing laboratory for alternative testing options. For additional information, please refer to http://[employer]faq/XYD595v9 (This link if provided for information/ educational purposes only.) Chlamydia trachomatis RNA, TMA, Urogenital NOT DETECTED NOT DETECTED [facility] Neisseria gonorrhoeae RNA, TMA, Urogenital NOT DETECTED NOT DETECTED [facility] (Always Message) [facility] Comment: The analytical performance characteristics of this assay, when used to test SurePath(TM) specimens have been determined by [employer]. The modifications have not been cleared or approved by the FDA. This assay has been validated pursuant to the CLIA regulations and is used for clinical purposes. For additional information, please refer to https://[employer]/faq/QDV913 (This link is being provided for information/ educational purposes only.) Trichomonas vaginalis, QL, TMA, PAP Vial NOT DETECTED NOT DETECTED [facility] Comment: The analytical performance characteristics of this assay have been determined by [employer]. The modifications have not been cleared or approved by the FDA. This assay has been validated pursuant to the CLIA regulations and is used for clinical purposes. For additional information, please refer to http://[employer]/ faq/Trichomonastma (This link is being provided for information/ educational purposes only.) Pap Vial 10/29/2022 11:2 9 AM EDT 10/31/2022 4:55 PM EDT us Olamide Stevens MD LAB CYTOLOGY ORDERABL ES Final Result [facility] [address], [place] [address] [facility] [address] [place] [address] from Last 3 Months or Most Recently Relevant to Health Maintenance Insurance [address] [facility] [address] [place] [employer] [facility] Care Teams Applications Scientist Relationship Specialty Start Date End Date Olamide Chandler MD [address] [place] [address] PCP - General Family Medicine 07/28/20
--- OUTSIDE RECORDS SUMMARY | 2024-09-20 06:44 | XMS_ITS | Encounter Summary ---
Author Organization [employer] Address [address] [facility] 7t [place] [address] Care Team Providers Care Tennis Ball Coverer Hand Name Role Phone Olamide Chandler MD Primary Care Provide r Encounter Details Date Type Department Care Team ([facility] st Contact Info) Description 08/09/2024 Orders Only [facility]INE [address] [place], [place] [phone] Olamide Chandler MD [address] [place] [address] Social History Tobacco Use Types Packs/Day Years [...] documented as of this encounter Care Teams Tennis Ball Coverer Hand Relationship Specialty Start Date End Date Olamide Chandler MD [address] [place] [address] PCP - General Family Medicine 07/28/20 documented as of this encounter
--- OUTSIDE RECORDS SUMMARY | 2024-09-20 06:44 | XMS_ITS | Clinical Summary ---
Author Organization [facility] ity Address [address] [place] [address] Care Team Providers Care Dye Reel Operator Name Role Phone Unavailable Primary Care Provider [...]
--- OUTSIDE RECORDS SUMMARY | 2024-09-20 06:44 | XMS_ITS | Encounter Summary ---
Author Organization [employer] Address [address] [facility] [address] [place] [address] Care Team Providers Care Information Security Engineer Name Role Phone Olamide Chandler MD Primary Care Provide r Reason for Visit * Reason Comments Med Refill Encounter Details Date Type Department Care Team ([facility] st Contact Info) Description 09/20/2024 Refill [facility] MEDICINE [address] [place], [place] [phone] Olamide Chandler MD [address] [place], [place] [phone] Vitamin D deficiency Social History Tobacco Use Types Packs/Day Years [...] as of this encounter Visit Diagnoses Diagnosis Vitamin D deficiency documented in this encounter Additional Health Concerns Assessment Noted Time PHQ-9 Depression Total Score: 25 024 9:17 AM EDT documented as of this encounter Care Teams Information Security Engineer Relationship Specialty Start Date End Date Olamide Chandler MD [address] [place] [phone] PCP - General Family Medicine 07/28/20 documented as of this encounter
--- OUTSIDE RECORDS SUMMARY | 2024-09-20 06:44 | XMS_ITS | Encounter Summary ---
Author Organization [employer] Address [address] [facility] [address] [place] [address] Care Team Providers Care Artificial Candy Maker Name Role Phone Olamide Chandler MD Primary Care Provide r Reason for Visit * Reason Onset Date Comments Pre-visit Planning 03/02/2024 Encounter Details Date Type Department Care Team ([facility] st Contact Info) Description 03/02/2024 Telephone [facility] MEDICINE [address] [place], [place] [phone] Olamide Chandler MD [address] [place], [place] [phone] Pre-visit Planning Social History Tobacco Use Types [...] documented as of this encounter Care Teams Artificial Candy Maker Relationship Specialty Start Date End Date Olamide Chandler MD [address] [place] [phone] PCP - General Family Medicine 07/28/20 documented as of this encounter
--- OUTSIDE RECORDS SUMMARY | 2024-09-20 06:44 | XMS_ITS | Encounter Summary ---
Author Organization [employer] Address [address] [facility] [address] [place] [address] Care Team Providers Care Edge Trimming Machine Operator Name Role Phone Olamide Chandler MD Primary Care Provide r Encounter Details Date Type Department Care Team (Late st Contact Info) Description 09/01/[address] [facility] [address] [place] [address] Renée Okeefe MA Social History Tobacco Use [...] (04/17/2023 1:20 AM EDT) Color Urine Yellow [facility] Appearance Urine Clear [facility] PH 6.0 5.0 - 9.0 [facility] Glucose Urine UA Negative Negative mg/dL [facility] Urine Blood Negative Negative [facility] Specific [place] - Urine <=1.005 1.005 - 1.025 [facility] Urine Protein Negative Neg-Trace mg/dL [facility] Urine Ketones Negative Negative mg/dL [facility] Nitrite Urine Negative Negative [facility] Leukocyte Esterase Urine Trace(A) Negative [facility] RBC Urine 0-2 0 - 2 /HPF [facility] Urine WBC 0-5 0 - 5 /HPF [facility] Urine Squamous Epithelial Cell 0-2 0 - 2 /HPF [facility] Urine Bacteria None Seen None Seen [facility] Hyaline Casts, Urine 0-2 0 - 2 /LPF [facility] 04/17/2023 1:20 AM EDT 04/17/2023 1:23 AM EDT Narrative [facility] - 04/17/2023 1:42 AM EDT [id number], Clean Catch us [facility] External Provider LAB URI NE ORDERABLES Final Result [facility] [address] [place] [phone] * B Type Natriuretic Peptide (BNP) (04/17/2023 12:46 AM EDT) B Type Natriuretic Peptide 44 <100 pg/mL [facility] Comment:For those patients w ho are being treated with Natrecor(nesiritide, recombinant BNP), BNP testing should beperformed at least two hours post treatment in order toensure that only endogenous levels of BNP are detected. 04/17/2023 12:4 6 AM EDT 04/17/2023 12:53 AM EDT us [facility] External Provider LAB BLO OD ORDERABLES Final Result [facility] [address] [place] [address] [phone] * BI Mammogram Screening Tomosynthesis Bilateral (09/09/2022 8:30 AM EDT) Anatomical Region Laterality Modality Breast Bilateral Mammography 09/09/2022 8:30 AM EDT Narrative 09/10/2022 11:56 AM EDT ? [facility] [place] ? [address] ?[place] [address] ? Mammography Report ? Signed ? Patient: Riggins Dan,Laisha I ?MR#: [id number] ?? [id number] ? : 1970 ?Acct:[id number] ? Age/Sex: 51 / F ?ADM Date: 09/09/ ? Loc: HO.MAMMO ? Attending Dr: Olamide Stevens MD ? Ordering Physician: Olamide Chandler MD ?Results: ?? 1Negative ? Date of Service: 09/09/ ?Follow Up: 1 Year From Orig ?? inal Mammogram ? Procedure(s): MM tomosynthesis screening BI ?? Accession Number(s): [id number] ? cc: Olamide Chandler MD ? EXAMINATION: [...] 1153 ? DD/ 9 ? TD/TT: ? Quick Mixer Operator: SK ? Procedure Note Ana, Gloria - 09/10/2022 [facility] [address] [place] [address] [place] [address] Mammography Report Signed Patient: Laisha Ye IMR#: [id number] : 1970Acct:[id number] Age/Sex: 51 / FADM Date: 09/09/22 Loc: HO.MAMMO Attending Dr: Olamide Stevens MD Ordering Physician: Olamide Chandler MDResults: 1Negative Date of Service: 09/09/22Follow Up: 1 Year From Orig inal Mammogram Procedure(s): MM tomosynthesis screening BI Accession Number(s): [id number] cc: Olamide Chandler MD EXAMINATION: MM SCREENING [...] in OV> 09/10/22 1153 DD/ 0830 TD/TT: Quick Mixer Operator: SK [facility] External Provider IMG BI PROCEDURES Edited Result - Final documented in this encounter Visit Diagnoses Not on filedocumented in this encounter Care Teams Edge Trimming Machine Operator Relationship Specialty Start Date End Date Olamide Chandler MD [address] [place] [phone] PCP - General Family Medicine 07/28/20 documented as of this encounter
--- OUTSIDE RECORDS SUMMARY | 2024-09-20 06:44 | XMS_ITS | Encounter Summary ---
Author Organization [employer] Address [address] [facility] 7[address] [place] [address] Care Team Providers Care Sales Associate Cashier Name Role Phone Olamide Chandler MD Primary Care Provide r Reason for Visit * Reason Onset Date Comments Nurse Triage 09/19/2024 Encounter Details Date Type Department Care Team ([facility] st Contact Info) Description 09/19/2024 Telephone [facility] [address] [place], [place] [phone] Olamide Chandler MD [address] [place], [place] [phone] Nurse Triage Social History Tobacco Use Types [...] encounter Miscellaneous Notes * Telephone Encounter - Patricia Kelly LPN - 09/19/2024 3:05 PM EDT Patient demographic sheet updated as patient does not need roll wrapper for triage. Patient reports onset of diarrhea starting yesterday. Had eaten chicken from [employer]. Now today has had 6 episodes of diarrhea with last one being in the last hour. Patient with abdominal cramping that comes and goes. Patient is on Zepbound and Senna for recently reported constipation. Able to take fluids and ate some chicken and white rice earlier no vomiting and no blood in stool. Disposition reviewed and patient provided home care recommendations. Would like [facility] to come to house to evaluate her. Address and phone verified at time of call and referral placed. Protocol Used: Diarrhea (Adult) Protocol-Based Disposition: See in Office or Video Visit within 3 Days Video visit not offered Positive Triage Question: * Patient wants to be seen * All higher-acuity triage questions were negative Care Advice Discussed: * Fluid Therapy During Mild to Moderate Diarrhea * Wash Your Hands * Reasons To Call Back - Signs of dehydration occur (such as no urine over 12 hours, very dry mouth, lightheaded, etc.) - Moderate diarrhea lasts more than 2 days - Diarrhea lasts over 7 days - You become worse * Telephone Encounter - Nina White - 09/19/2024 2:54 PM EDT Tc from pt returning phone call. Pt denied roll wrapper. * Telephone Encounter - Patricia Kelly LPN - 09/19/2024 2:23 PM EDT Triage call returned with BLS # [id number] Rob. No answer at listed number x 2. Will attempt again. Triage call returned with BLS # [id number] Sari again no answer and message again left to return call to [phone]. * Telephone Encounter - Joselyn Boyer - 09/19/2024 1:34 PM EDT Symptom: Diarrhea Outcome: Schedule an appointment to be seen within 24 hours Reason: Caller denied all higher acuity questions The caller accepted this outcome. documented in this encounter Plan of Treatment Not on file documented as of this encounter Visit Diagnoses Not on filedocumented in this encounter Additional Health Concerns Assessment Noted Time PHQ-9 Depression Total Score: 25 024 9:17 AM EDT documented as of this encounter Care Teams Sales Associate Cashier Relationship Specialty Start Date End Date Olamide Chandler MD [address] [place] [phone] PCP - General Family Medicine 07/28/20 documented as of this encounter
--- OUTSIDE RECORDS SUMMARY | 2024-09-20 06:44 | XMS_ITS | Encounter Summary ---
Author Organization [employer] Address [address] [facility] 7[address] [place] [address] Care Team Providers Care Locomotive Switch Operator Name Role Phone Olamide Chandler MD Primary Care Provide r Encounter Details Date Type Department Care Team ([facility] st Contact Info) Description 08/18/2022 Telephone [facility] [address] [place], [place] [phone] Olamide Chandler MD [address] [place] [address] Social History Tobacco Use Types Packs/Day Years [...] on filedocumented in this encounter Care Teams Locomotive Switch Operator Relationship Specialty Start Date End Date Olamide Chandler MD [address] [place] [address] PCP - General Family Medicine 07/28/20 documented as of this encounter
--- OUTSIDE RECORDS SUMMARY | 2024-09-20 06:44 | XMS_ITS | Clinical Summary ---
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 [phone] Health Maintenance Due Date Last Done Comments [...] 03/12/2024, , 04/08/2021, Additional history exists Insurance [address] [place] [id number] [place] [address] CARE DUAL SNP ([id number]) NADIR WALKER [phone] Care Teams Soaker Relationship Specialty Start Date End Date Olamide Chandler MD [address] [place] [address] [place] WEBSTER [phone] PCP - General Internal Medicine 10/27/23
[2024-09-20 06:45] LABS: Appearance Urine Clear; Color Urine Yellow; Glucose Urine UA Negative (Negative); Leukocyte Esterase Urine Negative (Negative); Nitrite Urine Negative (Negative); UMIC TRIGGER UACC YES; Urine Blood Trace (Negative); Urine Ketones Negative (Negative); Urine Protein Negative (Neg-Trace)
[2024-09-20 06:48] LABS: Bacteria Urine None Seen (None Seen); Hyaline Casts Urine 0-2 /LPF (0-2); RBC Urine 0-2 /HPF (0-2); Squamous Epithelial Cell Urine 0-2 /HPF (0-2); WBC Urine 0-5 /HPF (0-5)
--- NOTE | 2024-09-20 07:33 | PC.NURSE ---
assumed care of pt, endorsed mild epigastric discomfort at this time. received IVF at home yesterday to address dehydration from 1 wk of diarrhea 12x daily since starting tirzepatide with reduced po intake. denies vomiting, blood in stool, dysuria, fever. has one kidney, congenital. #20 placed in RAC. call brown within reach, [facility].
[2024-09-20 08:00] VITALS: BP 108/62; PULSE 85; RESP 16; TEMP 36.6; O2SAT 99
--- NOTE | 2024-09-20 08:26 | ED.NAVMDI ---
HPI - Nausea/Vomiting/Diarrhea General Chief complaint: Nausea/Vomiting/Diarrhea Stated complaint: diarrhea x 3 days Time Seen by Provider: 09/20/24 07:55 Source: patient, RN notes reviewed and old records reviewed Mode of arrival: ambulatory History of Present Illness ED Provider: Neisha Morton PA-C HPI Narrative: 53-year-old female with a past medical history of sleep apnea, GERD, osteoarthritis, depression, polyarthralgia, hypothyroid, presenting to the ED complaining of watery diarrhea x 3 days with associated abdominal bloating. Denies fever, chills, nausea, vomiting, dysuria / hematuria, melena, bloody stools. Admits has been on Zepbound over a month however dose was increased on Tuesday, with diarrhea starting Tuesday, pt unsure if this is related. Denies any recent antibiotics, travel, sick contacts. Does report her dog had diarrhea as well Related Data Home Medications ?Medication ?Instructions ?Recorded ?Confirmed albuterol sulfate 90 mcg/actuation 1 inh inhalation Q4H PRN Wheezing 06/05/20 01/03/23 aerosol inhaler bupropion HCl 150 mg 24 hr tablet, 150 mg PO QAM 06/05/20 01/03/23 extended release lorazepam 0.5 mg tablet 0.5 mg PO BID PRN Anxiety 06/05/20 01/03/23 omeprazole 40 mg capsule,delayed 40 mg PO DAILY 06/05/20 01/03/23 release citalopram 10 mg tablet 10 mg PO DAILY 07/28/20 01/03/23 citalopram 20 mg tablet 20 mg PO DAILY 01/26/21 01/03/23 fluticasone propionate 50 1 spray intranasal DAILY 11/25/21 01/03/23 mcg/actuation nasal spray,suspension (Flonase Allergy Relief) CPAP (CPAP Machine/Device) 01/03/23 01/03/23 carvedilol 3.125 mg tablet 3.125 mg PO BID 01/31/24 triamcinolone acetonide 0.1 % 1 appl topical BID-TID 01/31/24 topical cream Previous Rx's ?Medication ?Instructions ?Recorded cholecalciferol (vitamin D3) 50 50 mcg PO DAILY 30 days #30 caps 08/12/21 mcg (2,000 unit) capsule levothyroxine 75 mcg tablet 75 mcg PO QAM #30 tabs 08/12/21 (Euthyrox) docusate sodium 100 mg capsule 200 mg (2 x 100 mg) PO BEDTIME #60 04/26/22 (Colace) caps methylcellulose (laxative) 500 mg 500 mg PO BID #60 tabs 04/26/22 tablet (Citrucel) hydrocortisone 2.5 % topical cream 1 appl SC BEDTIME PRN hemorrhoids 12/23/22 with perineal applicator #30 grams (Proctosol HC) methylcellulose (laxative) 500 mg 500 mg PO TID 30 days #90 tabs 12/23/22 tablet (Citrucel) Allergies Allergy/AdvReac Type Severity Reaction Status Date / Time cinnamon [CINNAMON] Allergy Intermediate THROAT Verified 09/20/24 06:10 SWELLING soy Allergy Intermediate Itching Verified 09/20/24 06:10 calcium carbonate [From Tums] Allergy Unknown Unknown Verified 09/20/24 06:10 fluoxetine [From PROZAC] Allergy Unknown UNKNOWN Verified 09/20/24 06:10 Review of Systems Review of Systems: Yes all other systems are reviewed and are negative Constitutional: Constitutional: Reports as per [facility] Past Medical History Attestation statement: The following information was validated with the patient. Source: old records reviewed Medical History Sleep apnea GERD (gastroesophageal reflux disease) Osteoarthritis of hands, bilateral Osteoarthritis of knees, bilateral Flexor tenosynovitis of finger Bilateral hand pain Depression ESR raised Polyarthralgia Vitamin D deficiency Multinodular thyroid Hypothyroidism Surgical History Hx of colonoscopy Hx of tooth extraction Hx of endoscopy Hx of bilateral breast reduction surgery Family History Family History Father Prostate cancer Hypothyroidism Mother Kidney problem Stroke Brother Kidney problem Social History Social History Household Members: None Household Members Other:: Lives alone Housing: House Are you a primary career services representative to a significant other at home: No Do you presently have visiting nurse or other home services: Yes ([employer] SALES [employer]ORDINATOR) Alcohol intake: never Patient Tobacco Use Status: Never used Tobacco e-Cigarette/Vaping Use: Never Used Use of substances other than those prescribed or required for medical reasons: No Advance Directives: No Advance Directives Information Provided: Yes service: No Current occupational status: disabled Physical Exam Vital Signs: Vital Signs: Last Vital Signs Temp 97.9 F 09/20/24 10:17 Pulse 75 09/20/24 10:17 Resp 16 09/20/24 10:17 BP 105/62 09/20/24 10:17 Pulse Ox 99 09/20/24 10:17 O2 Del Method Room Air 09/20/24 10:17 BMI result Body Mass Index 40.2 Const: General: cooperative, healthy appearing and no acute distress Orientation/consciousness: patient oriented x3 Limitations: no limitations HEENT: Head: Yes normal to inspection and Yes atraumatic Ears: hearing grossly normal bilaterally General nose exam: Normal external nose present Face and sinus: Yes normal facial exam Eyes: General: appearance normal, both eyes and all related structures EOM: EOMs intact bilaterally Neck: Neck: Yes normal visual inspection and Yes no meningeal signs Resp: Effort & Inspection: normal respiratory effort and no respiratory distress Cardio: Rate: regular rate GI: Inspection: Yes normal to inspection Palpation (GI): Soft to palpation, nontender, no guarding and not rigid : General: Yes no CVA tenderness Back/Spine/Pelvis: Back: no CVA tenderness Skin: Rashes: no rashes Wounds: no wounds Neuro: General: patient oriented x3, tone normal and no meningeal signs Cranial nerves: Yes CN's II-XII intact bilaterally Gait exam (Neuro): Normal gait present Extrem: General: Yes normal to inspection Course Course Course Narrative: 0835-- labs reassuring, UA negative -1004-- COVID/flu /RSV and C diff negative > discussed with patient to contact her PCP provider as symptoms may be secondary to increasing dose of Zepbound GI panel pending, will be contacted with positive results only. Results discussed with patient including worrisome signs and symptoms and strict return precautions, and when to return to the emergency department. They verbalized understanding and feel safe for discharge at this time. Medications Administered Discontinued Medications Generic Name Dose Route Start Last Admin Trade Name Freq PRN Reason Stop Dose Admin Sodium Chloride 1,000 mls @ 999 mls/hr 09/20/24 08:30 09/20/24 10:09 Ns IV 09/20/24 09:30 Infused .Q1H1M NIA Infusion Medical Decision Making Medical Decision Making MDM Narrative: 53-year-old female with a past medical history of sleep apnea, GERD, osteoarthritis, depression, polyarthralgia, hypothyroid, presenting to the ED complaining of watery diarrhea x 3 days with associated abdominal bloating. on exam vital signs stable, NAD, nontoxic appearing, abdomen is soft and nontender, no CVAT. Concern for viral gastroenteritis vs Zepbound adverse reaction. Rule out metabolic dehydration. Rule out etiology. Low suspicion for severe sepsis. Plan: Labs, UA, IVF, stool studies including C diff Please refer to course for remaining clinical decision making, interpretation of labs/imaging results, and discussions with consultants and/or family members. Differential Diagnosis Differential Diagnoses: The differential diagnosis associated with the presentation includes As above Admission/Observation Consideration of admission/observation: Escalation of care including admission/observation considered Lab Data [facility] Lab Attestation statement: I reviewed the patient's lab results. 09/20/24 06:19 09/20/24 06:19 Labs: Lab Results 09/20/24 09/20/24 09/20/24 Range/Units 06:19 06:37 08:32 WBC 7.9 (4.8-10.8) X10*3/uL RBC 4.57 (4.20-5.50) X10*6/uL Hgb 13.2 (12.0-16.0) g/dl Hct 39.2 (37.0-47.0) % MCV 85.8 (80.0-98.0) fL MCH 28.9 (27.0-33.0) pg MCHC 33.7 (31.0-35.0) g/dl RDW 12.4 (11.0-16.0) % Plt Count 326 (160-400) X10*3/uL MPV 9.1 L (9.4-12.3) fL Immature Gran % (Auto) 0.4 (0.0-0.4) % Neut % (Auto) 70.1 (45-73) % Lymph % (Auto) 18.9 L (20-40) % [place] % (Auto) 8.7 (2-11) % Eos % (Auto) 1.4 (0-4) % Baso % (Auto) 0.5 (0-2) % Lymph # (Auto) 1.5 (1.2-4.9) X10*3/uL [place] # (Auto) 0.7 (0.1-1.2) X10*3/uL Eos # (Auto) 0.1 (0.0-0.4) X10*3/uL Baso # (Auto) 0.0 (0.0-0.2) X10*3/uL Abs Immat Gran (auto) 0.03 (0.00-0.03) X10*3/uL Absolute Neuts (auto) 5.6 (2.0-8.3) x10*3/uL Absolute Nucleated RBC 0.000 (0.0-0.012) X10*3/uL Nucleated RBC % (auto) 0.0 (0.0-0.2) /100WBC Sodium 139 (135-145) mmol/L Potassium 3.9 (3.3-5.1) mmol/L Chloride 109 H (96-108) mmol/L Carbon Dioxide 23 (22-29) mmol/L Anion Gap 11 L (12-20) BUN 9 (9-16) mg/dL Creatinine 0.76 (0.5-1.4) mg/dL Estim Creat Clear Calc 92.0 Estimated GFR > 60 Random Glucose 114 (60-115) mg/dL Calcium 9.0 (8.4-10.2) mg/dL Magnesium 2.0 (1.6-2.6) mg/dL Total Bilirubin 0.6 (0.0-1.0) mg/dL AST 18 (5-31) U/L ALT 9 (0-31) U/L Alkaline Phosphatase 73 (39-117) U/L Total Protein 7.5 (6.5-8.0) g/dL Albumin 3.9 (3.5-5.0) g/dL Lipase 27 (8-78) U/L Urine Color Yellow Urine Appearance Clear Urine pH 6.0 (5.0-9.0) Ur Specific [place] 1.020 (1.005-1.025) Urine Protein Negative (Neg-Trace) mg/dL Urine Glucose (UA) Negative (Negative) mg/dL Urine Ketones Negative (Negative) mg/dL Urine Blood Trace (Negative) Urine Nitrite Negative (Negative) Ur Leukocyte Esterase Negative (Negative) Urine RBC 0-2 (0-2) /HPF Urine WBC 0-5 (0-5) /HPF Ur Squamous Epith Cells 0-2 (0-2) /HPF Urine Bacteria None Seen (None Seen) Hyaline Casts 0-2 (0-2) /LPF Stl C. cayetanensis PCR Not Detected (Not Detect.) Stool Rotavirus A PCR Not Detected (Not Detect.) Stl Adenov F 40/41 PCR Not Detected (Not Detect.) Stool Astrovirus (PCR) Not Detected (Not Detect.) Stool Campylobacter PCR Not Detected (Not Detect.) Stool Cryptosporidium PCR Not Detected (Not Detect.) Stl Sh Tox Pr E STEC PCR Not Detected (Not Detect.) Stool E coli O157 PCR Not applicable (Not Detect.) Stl Enterotoxigenic E PCR Not Detected (Not Detect.) Stool EPEC (PCR) Not Detected (Not Detect.) Stool EAEC (PCR) Not Detected (Not Detect.) Stl E. histolytica PCR Not Detected (Not Detect.) Stool Giardia Lamblia PCR Not Detected (Not Detect.) Stl P. shigelloides PCR Not Detected (Not Detect.) Stool Salmonella PCR Not Detected (Not Detect.) Stool Sapovirus (PCR) Not Detected (Not Detect.) Stl Shigella/EIEC PCR Not Detected (Not Detect.) St Y.enterocolitica PCR Not Detected (Not Detect.) Stool Vibrio (PCR) Not Detected (Not Detect.) Stl Vibrio cholerae PCR Not Detected (Not Detect.) Stl Norovirus GI/GII PCR Not Detected (Not Detect.) C. difficile Tox B Gene NEGATIVE (Negative) Influenza Type A (PCR) (Negative) Influenza Type B (PCR) (Negative) RSV RNA Qual (PCR) (Negative) SARS-CoV-2 RNA (RT-PCR) (Negative) 09/20/24 Range/Units 08:39 WBC (4.8-10.8) X10*3/uL RBC (4.20-5.50) X10*6/uL Hgb (12.0-16.0) g/dl Hct (37.0-47.0) % MCV (80.0-98.0) fL MCH (27.0-33.0) pg MCHC (31.0-35.0) g/dl RDW (11.0-16.0) % Plt Count (160-400) X10*3/uL MPV (9.4-12.3) fL Immature Gran % (Auto) (0.0-0.4) % Neut % (Auto) (45-73) % Lymph % (Auto) (20-40) % [place] % (Auto) (2-11) % Eos % (Auto) (0-4) % Baso % (Auto) (0-2) % Lymph # (Auto) (1.2-4.9) X10*3/uL [place] # (Auto) (0.1-1.2) X10*3/uL Eos # (Auto) (0.0-0.4) X10*3/uL Baso # (Auto) (0.0-0.2) X10*3/uL Abs Immat Gran (auto) (0.00-0.03) X10*3/uL Absolute Neuts (auto) (2.0-8.3) x10*3/uL Absolute Nucleated RBC (0.0-0.012) X10*3/uL Nucleated RBC % (auto) (0.0-0.2) /100WBC Sodium (135-145) mmol/L Potassium (3.3-5.1) mmol/L Chloride (96-108) mmol/L Carbon Dioxide (22-29) mmol/L Anion Gap (12-20) BUN (9-16) mg/dL Creatinine (0.5-1.4) mg/dL Estim Creat Clear Calc Estimated GFR Random Glucose (60-115) mg/dL Calcium (8.4-10.2) mg/dL Magnesium (1.6-2.6) mg/dL Total Bilirubin (0.0-1.0) mg/dL AST (5-31) U/L ALT (0-31) U/L Alkaline Phosphatase (39-117) U/L Total Protein (6.5-8.0) g/dL Albumin (3.5-5.0) g/dL Lipase (8-78) U/L Urine Color Urine Appearance Urine pH (5.0-9.0) Ur Specific [place] (1.005-1.025) Urine Protein (Neg-Trace) mg/dL Urine Glucose (UA) (Negative) mg/dL Urine Ketones (Negative) mg/dL Urine Blood (Negative) Urine Nitrite (Negative) Ur Leukocyte Esterase (Negative) Urine RBC (0-2) /HPF Urine WBC (0-5) /HPF Ur Squamous Epith Cells (0-2) /HPF Urine Bacteria (None Seen) Hyaline Casts (0-2) /LPF Stl C. cayetanensis PCR (Not Detect.) Stool Rotavirus A PCR (Not Detect.) Stl Adenov F 40/41 PCR (Not Detect.) Stool Astrovirus (PCR) (Not Detect.) Stool Campylobacter PCR (Not Detect.) Stool Cryptosporidium PCR (Not Detect.) Stl Sh Tox Pr E STEC PCR (Not Detect.) Stool E coli O157 PCR (Not Detect.) Stl Enterotoxigenic E PCR (Not Detect.) Stool EPEC (PCR) (Not Detect.) Stool EAEC (PCR) (Not Detect.) Stl E. histolytica PCR (Not Detect.) Stool Giardia Lamblia PCR (Not Detect.) Stl P. shigelloides PCR (Not Detect.) Stool Salmonella PCR (Not Detect.) Stool Sapovirus (PCR) (Not Detect.) Stl Shigella/EIEC PCR (Not Detect.) St Y.enterocolitica PCR (Not Detect.) Stool Vibrio (PCR) (Not Detect.) Stl Vibrio cholerae PCR (Not Detect.) Stl Norovirus GI/GII PCR (Not Detect.) C. difficile Tox B Gene (Negative) Influenza Type A (PCR) NEGATIVE (Negative) Influenza Type B (PCR) NEGATIVE (Negative) RSV RNA Qual (PCR) NEGATIVE (Negative) SARS-CoV-2 RNA (RT-PCR) NEGATIVE (Negative) Radiology Impression Discussion of test interpretation with radiology: I have reviewed the radiologist's reading. External Record Review External record reviewed: Inpatient record, Office record, Outpatient record, Prior outpatient labs, Prior outpatient radiology, Primary care record and Outside ED record Tests considered The following testing was considered but not selected: As above Prescription Management I considered prescription management with: Other Chronic Conditions Patient?s care impacted by: Other Social Determinants Patient?s care significantly limited by Social Determinants of Health including: Other Social Determinant of Health Discharge Plan Discharge Clinical Impression: Diarrhea Patient Disposition: Home, Self-Care Instructions: Acute Diarrhea (ED) Additional Instructions: Your blood work is reassuring. Your C diff was negative. You tested negative for COVID, flu, RSV Please contact your primary care provider as your symptoms might be secondary to your Zepbound please stay hydrated If her symptoms persist or worsen you develop bloody stool, black stool, persistent or worsening abdominal pain, you are unable to eat or drink return to the ED Prescriptions: No Action levothyroxine [Euthyrox] 75 mcg tablet 75 mcg PO QAM Qty: 30 11RF cholecalciferol (vitamin D3) 50 mcg (2,000 unit) capsule 50 mcg PO DAILY 30 Days Qty: 30 11RF Citrucel 500 mg tablet 500 mg PO TID 30 Days Qty: 90 5RF hydrocortisone [Proctosol HC] 2.5 % cream with perineal applicator 1 appl SC BEDTIME PRN (Reason: hemorrhoids) Qty: 30 3RF citalopram 10 mg tablet 10 mg PO DAILY bupropion HCl 150 mg tablet extended release 24 hr 150 mg PO QAM lorazepam 0.5 mg tablet 0.5 mg PO BID PRN (Reason: Anxiety) omeprazole 40 mg capsule,delayed release(DR/EC) 40 mg PO DAILY albuterol sulfate 90 mcg/actuation HFA aerosol inhaler 1 inh inhalation Q4H PRN (Reason: Wheezing) citalopram 20 mg tablet 20 mg PO DAILY docusate sodium [Colace] 100 mg capsule 200 mg PO BEDTIME Qty: 60 5RF Citrucel 500 mg tablet 500 mg PO BID Qty: 60 5RF fluticasone propionate [Flonase Allergy Relief] 50 mcg/actuation spray,suspension 1 spray intranasal DAILY Rx Instructions: administer into each nostril (DME) CPAP Machine/Device Device See Rx Instructions .Route Rx Instructions: As directed carvedilol 3.125 mg tablet 3.125 mg PO BID triamcinolone acetonide 0.1 % cream 1 appl topical BID-TID Referrals: Olamide Chandler MD [Primary Care Provider] - 1 week Interventions: ED Discharge Assessment Last Done: 09/20/24 10:17 Discharge Date/Time: 09/20/24 10:23 Print Language: Welsh
[2024-09-20] MEDS: 0.9 % Sodium Chloride 1,000 ML 999 ML IV (08:42)
[2024-09-20 08:59] LABS: Lipase 27 U/L (8-78)
[2024-09-20 09:22] LABS: Influenza A PCR NEGATIVE (Negative); Influenza B PCR NEGATIVE (Negative); Resp Syncy Virus RNA Qual PCR NEGATIVE (Negative); SARS COV2 PCR INHOUSE NEGATIVE (Negative)
[2024-09-20 09:38] LABS: CDiff Gene PCR NEGATIVE (Negative)
[2024-09-20 10:17] VITALS: BP 105/62; PULSE 75; RESP 16; TEMP 36.6; O2SAT 99
[2024-09-20 11:41] LABS: Adenovirus F 40/41 Not Detected (Not Detect.); Astrovirus Not Detected (Not Detect.); Campylobacter Not Detected (Not Detect.); Cryptosporidium Not Detected (Not Detect.); Cyclospora cayetanensis Not Detected (Not Detect.); E. coli EAEC Not Detected (Not Detect.); E. coli EPEC Not Detected (Not Detect.); E. coli ETEC Not Detected (Not Detect.); E. coli STEC Not Detected (Not Detect.); Entamoeba histolytica Not Detected (Not Detect.); Giardia lamblia Not Detected (Not Detect.); Norovirus GI/GII Not Detected (Not Detect.); Plesiomonas shigelloides Not Detected (Not Detect.); Rotavirus A Not Detected (Not Detect.); Salmonella Not Detected (Not Detect.); Sapovirus Not Detected (Not Detect.); Shigella sp./EIEC Not Detected (Not Detect.); Vibrio Not Detected (Not Detect.); Vibrio Cholerae Not Detected (Not Detect.); Yersinia enterocolitica Not Detected (Not Detect.)
== END 2024-09-20 10:23 | disposition home or self-care (01) ==
PROVIDERS: Physician Assistant; Emergency Provider Emergency Medicine; PCP Internal Medicine
DX: R19.7 Diarrhea, unspecified (principal); Z03.818 Encounter for observation for suspected exposure to other biological agents ruled out; E03.9 Hypothyroidism, unspecified; E55.9 Vitamin D deficiency, unspecified; Z90.5 Acquired absence of kidney; Q60.0 Renal agenesis, unilateral; G47.33 Obstructive sleep apnea (adult) (pediatric); Z99.89 Dependence on other enabling machines and devices; Z79.899 Other long term (current) drug therapy
CPT/HCPCS: 0241U; 36415; 80053; 81001; 83690; 83735; 85025; 87493; 87507; 96360; 99284

== ENCOUNTER 2024-10-03 07:59 | Outpatient (AMB) | payer OTHER, SELFPAY ==
--- OUTSIDE RECORDS SUMMARY | 2024-10-03 08:04 | XMS_ITS | Clinical Summary ---
Author Organization [employer] Address [address] [facility] [address] [place] [address] Care Team Providers Care Production Maintenance Technician Name Role Phone Olamide Chandler MD Primary [...] MG TABLET 07/28/19 23 Active sodium chloride ([place] Nasal [place]) 0.65 % nasal sprayIndications: COVID-19 1-2 sprays [...] 40 capsule 1 01/11/20 24 2024 Active carvedilol (Coreg) 6.25 MG tabletIndications :Essential [...] (BMI) of 45.0 to 49.9 in adult Inject 0.5 mL (5 mg) under the skin 1 (one) time per week. 2 mL 08/31/19 25 Active Cholecalciferol (Vitamin D) 50 MCG (2000 UT) capsuleIndication s:Vitamin D deficiency TAKE 1 CAPSULE BY MOUTH EVERY DAY 90 capsule 3 09/21/19 25 Active Tirzepatide-Weigh t Management (Zepbound) 2.5 MG/0.5ML solution auto-injectorIndi cations:Class 3 severe obesity due to excess calories with serious comorbidity and body mass index (BMI) of 45.0 to 49.9 in adult Inject 0.5 mL (2.5 mg) under the skin 1 (one) time per week. 2 mL 09/21/19 25 Active Cholecalciferol (Vitamin D) 50 MCG (2000 UT) capsuleIndication s:Vitamin D deficiency TAKE 1 CAPSULE BY MOUTH EVERY DAY 90 capsule 1 03/12/20 24 2024 Discontinued Active Problems Problem Noted [...] It seems to be [place] or [place] rash. We discuss about avoiding scratching, use [...] Date Type Department Care Team Description 09/20/2024 Orders Only [address] [address] Olamide Chandler MD Class 3 severe obesity due to excess calories with serious comorbidity and body mass index (BMI) of 45.0 to 49.9 in adult (Primary Dx) 09/20/[address] [address] Olamide Chandler MD Nurse Triage 09/20/2024 Orders Only GENERIC EXTERNAL DATA DEPARTMENT Provider, Generic External Data 09/20/[address] [address] Olamide Chandler MD Vitamin D deficiency 09/19/[address] [address] Olamide Chandler MD Nurse Triage 09/03/[address] [address] Olamide Chandler MD Results 08/30/2024 9:00 AM EDT Telemedicine [address] [address] Olamide Chandler MD Constipation, unspecified constipation type (Primary Dx); Hair loss; Class 3 severe obesity due to excess calories with serious comorbidity and body mass index (BMI) of 45.0 to 49.9 in adult ([facility]); Chronic fatigue 08/30/2024 Travel 08/23/2024 Refill [facility] [address] [place] [address] Olamide Chandler MD Other specified hypothyroidism 08/22/2024 Refill [facility] [address] [place] [address] Olamide Chandler MD Seasonal allergies 08/14/2024 Telephone [facility] [address] [place] [address] Olamide Chandler MD Nurse Triage 08/09/2024 Orders Only [facility] [address] [place] [address] Olamide Chandler MD 08/09/2024 Refill [facility] [address] [place] [address] Olamide Chandler MD Class 3 severe obesity due to excess calories with serious comorbidity and body mass index (BMI) of 45.0 to 49.9 in adult ([facility]) 07/19/2024 Refill [facility] [address] [place] [address] Olamide Chandler MD Gastroesophageal reflux disease, unspecified whether esophagitis present 07/18/2024 Orders Only [facility] External Provider, [facility] 07/12/2024 Telephone [facility] [address] [place] [address] Olamide Chandler MD 07/08/2024 Refill [facility] [address] [place] [address] Olamide Chandler MD Class 3 severe obesity due to excess calories with serious comorbidity and body mass index (BMI) of 45.0 to 49.9 in adult ([facility]) from Last 3 Months Immunizations Name Administration [...] exists SDOH Screening 08/05/2024 08/05/2023 Depression Monitoring 09/09/2024 03/12/2024, 024 Mammogram 09/14/2024 09/15/2023, 08/19, 09/09/2022, Additional history [...] topic Meningococcal Vaccine Aged Out No raf cristian eligible based on patient's age to complete this topic RSV under 20 months Aged Out No longe r eligible based on patient's age to complete this topic Rotavirus Vaccines Aged Out No longer eligible based on patient's age to complete this topic Procedures Procedure Name Priority Date/Time Associated Diagnosis Comments SARS COV2/INFLUENZA A/B AND RSV RNA QL NAAT Routine 09/20/2024 8:39 AM EDT CDIFF GENE PCR Routine 09/20/2024 8:32 AM EDT GASTROINTESTINAL PANEL Routine 8:32 AM EDT URINALYSIS, COMPLETE, WITH REFLEX TO CULTURE Routine 09/20/2024 6:37 AM EDT LIPASE Routine 09/20/2024 6:19 AM EDT MAGNESIUM Routine 09/20/2024 6:19 AM EDT COMPREHENSIVE METABOLIC PANEL Routine 09/20/2024 6:19 AM EDT CBC WITH AUTO DIFFERENTIAL Routine 09/20/2024 6:19 AM EDT VITAMIN D,25-OH,TOTAL,IA Routine 025 9:00 AM EDT Hair loss CBC WITH [...] Recently Relevant to Health Maintenance Results * SARS-CoV-2 RNA, Influenza A/B, and RSV RNA, Ql NAAT (09/20/2024 8:39 AM EDT) Influenza A PCR NEGATIVE Negative [facility] Influenza B PCR NEGATIVE Negative [facility] Resp Syncy Virus RNA Qual PCR NEGATIVE Negative [facility] SARS COV2 PCR NEGATIVE Negative [facility] Comment:All test results mus t be correlated with clinical findings.Negative results do not preclude SARS-CoV2, influenza Avirus, influenza B virus and/or RSV infectionand should not be used as the sole basis for treatment orother patient management decisions. Negative results must becombined with clinical observations, patient history, andepidemiological information.This test has not been evaluated for monitoring treatment ofinfection.This test has been authorized by the FDA under an EmergencyUse Authorization (EUA) for use by authorized laboratories.Testing performed on the [employer] GeneXpert utilizingreal-time RT-PCR.All SARS CoV2 and positive influenza A/B results arereported to [facility]. 09/20/2024 8:39 AM EDT 09/20/2024 8:42 AM EDT us Generic External Data Provider LAB MICROBIOLOGY - GENERAL ORDERABLES Final Result [facility] [address] [place] [phone] * CDiff Gene PCR (09/20/2024 8:32 AM EDT) CDiff Gene PCR NEGATIVE Negative [facility] Comment:If C. difficile stro ngly suspected despite one negativetest, a second test may be sent vs. empiric treatment forC. difficile infection. 09/20/2024 8:32 AM EDT 09/20/2024 8:38 AM EDT us Generic External Data Provider LAB BODY FLUIDS A ND STOOLS ORDERABLES Final Result [facility] [address] [place] [address] [phone] * Gastrointestinal panel (09/20/2024 8:32 AM EDT) Campylobacter Not Detected Not Detect. [facility] Plesiomonas shigelloides Not Detected Not Detect. [facility] Salmonella Not Detected Not Detect. [facility] Vibrio Not Detected Not Detect. [facility] Vibrio cholerae Not Detected Not Detect. [facility] YERSINIA ENTEROCOLITICA Not Detected Not Detect. [facility] Enteroaggregative E. coli (EAEC) Not Detected Not Detect. [facility] Enteropathogenic E. coli (EPEC) Not Detected Not Detect. [facility] Enterotoxigenic E. coli (ETEC) lt/st Not Detected Not Detect. [facility] Shiga-like toxin-producing E. coli (STEC) stx1/stx2 Not Detected Not Detect. [facility] E coli O157 Not applicable Not Detect. [facility] Comment:E. coli containing t he O157 antigen are a subset ofShiga-like toxin- producing E. coli (STEC). Shigella/Enteroinvasive E. coli (EIEC) Not Detected Not Detect. [facility] Cryptosporidium Not Detected Not Detect. [facility] Cyclospora cayetanensis Not Detected Not Detect. [facility] Entamoeba histolytica Not Detected Not Detect. [facility] Giardia lamblia Not Detected Not Detect. [facility] Adenovirus F 40/41 Not Detected Not Detect. [facility] Astrovirus Not Detected Not Detect. [facility] Norovirus GI/GII Not Detected Not Detect. [facility] Rotavirus A Not Detected Not Detect. [facility] Sapovirus Not Detected Not Detect. [facility] Comment: All results must be correlated with clinical findings.Negative results do not exclude the possibility ofgastrointestinal infection and should not be used as thesole basis for diagnosis, treatment, or other managementdecisions. Virus, bacteria, and parasite nucleic acid maypersist in vivo independently of organism viability.Additionally, some organisms may be carriedasymptomatically.Detection of organism targets does not imply that thecorresponding organisms are infectious or are the causativeagents for clinical symptoms. There is a risk of falsenegative values due to the presence of sequence variants inthe gene targets of the assay, amplification inhibitors inspecimens, or inadequate numbers of organisms foramplification.The identification of several diarrheagenic E. colipathotypes has historically relied upon phenotypiccharacteristics. This panel targets genetic determinantscharacteristic of most pathogenic strains, but may notdetect all strains having phenotypic characteristics of apathotype.The performance of this test has not been established formonitoring treatment of infection with any of the panelorganisms.This assay is performed by Multiplexed PCR, utilizing [employer]. 09/20/2024 8:32 AM EDT 09/20/2024 8:38 AM EDT us Generic External Data Provider LAB MICROBIOLOGY - GENERAL ORDERABLES Final Result [facility] [address] [place] [phone] * Urinalysis, Complete, with Reflex to Culture (09/20/2024 6:37 AM EDT) Color Urine Yellow [facility] Appearance Urine Clear [facility] PH 6.0 5.0 - 9.0 [facility] Glucose Urine UA Negative Negative mg/dL [facility] Urine Blood Trace Negative [facility] Specific [place] - Urine 1.020 1.005 - 1.025 [facility] Urine Protein Negative Neg-Trace mg/dL [facility] Urine Ketones Negative Negative mg/dL [facility] Nitrite Urine Negative Negative [facility] Leukocyte Esterase Urine Negative Negative [facility] RBC Urine 0-2 0 - 2 /HPF [facility] Urine WBC 0-5 0 - 5 /HPF [facility] Urine Squamous Epithelial Cell 0-2 0 - 2 /HPF [facility] Urine Bacteria None Seen None Seen [facility] Hyaline Casts, Urine 0-2 0 - 2 /LPF [facility] 09/20/2024 6:37 AM EDT 09/20/2024 6:42 AM EDT Narrative [facility] - 09/20/2024 6:49 AM EDT [id number], Clean Catch us Generic External Data Provider LAB URINE ORDERAB LES Final Result [facility] [address] [place] [phone] * (ABNORMAL) CBC auto differential (09/20/2024 6:19 AM EDT) Only the most recent of2 resultswithin the time period is included. White Blood Count 7.9 4.8 - 10.8 X10*3/uL [facility] Red Blood Count 4.57 4.20 - 5.50 X10*6/uL [facility] Hemoglobin 13.2 12.0 - 16.0 g/dl [facility] Hematocrit 39.2 37.0 - 47.0 % [facility] Mean Corpuscular Volume 85.8 80.0 - 98.0 fL [facility] Mean Corpuscular Hemoglobin 28.9 27.0 - 33.0 pg [facility] Mean Corpuscular HGB Conc 33.7 31.0 - 35.0 g/dl [facility] Red Cell Distribution Width 12.4 11.0 - 16.0 % [facility] Platelet Count 326 160 - 400 X10*3/uL [facility] Mean Platelet Volume 9.1(L) 9.4 - 12.3 fL [facility] Neutrophils Percent Auto 70.1 45 - 73 % [facility] Imm Gran Pct Auto 0.4 0.0 - 0.4 % [facility] Lymphocytes Percent Auto 18.9(L) 20 - 40 % [facility] Monocytes Percent Auto 8.7 2 - 11 % [facility] Eosinophils Percent Auto 1.4 0 - 4 % [facility] Basophils Percent Auto 0.5 0 - 2 % [facility] NRBC Pct Auto 0.0 0.0 - 0.2 /100WBC [facility] Neutrophils Absolute Auto 5.6 2.0 - 8.3 x10*3/uL [facility] Imm Gran Abs Auto 0.03 0.00 - 0.03 X10*3/uL [facility] Lymphocytes Absolute Auto 1.5 1.2 - 4.9 X10*3/uL [facility] Monocytes Absolute Auto 0.7 0.1 - 1.2 X10*3/uL [facility] Eosinophils Absolute Auto 0.1 0.0 - 0.4 X10*3/uL [facility] Basophils Absolute Auto 0.0 0.0 - 0.2 X10*3/uL [facility] NRBC Abs Auto 0.000 0.0 - 0.012 X10*3/uL [facility] 09/20/2024 6:19 AM EDT 09/20/2024 6:22 AM EDT us Generic External Data Provider LAB BLOOD ORDERAB LES Final Result Performing Organization Address [facility]/ZIP Co de Phone Number [facility] [address] [place] [phone] * Magnesium (09/20/2024 6:19 AM EDT) Magnesium 2.0 1.6 - 2.6 mg/dL [facility] 09/20/2024 6:19 AM EDT 09/20/2024 6:22 AM EDT us Generic External Data Provider LAB BLOOD ORDERAB LES Final Result Performing Organization Address City/[facility] Co de Phone Number [facility] [address] [place] [phone] * Lipase (09/20/2024 6:19 AM EDT) Lipase 27 8 - 78 U/L [facility] 09/20/2024 6:19 AM EDT 09/20/2024 6:22 AM EDT us Generic External Data Provider LAB BLOOD ORDERAB LES Final Result [facility] [address] [place] [phone] * (ABNORMAL) Comprehensive Metabolic Panel (09/20/2024 6:19 AM EDT) Only the most recent of2 resultswithin the time period is included. Sodium 139 135 - 145 mmol/L [facility] Potassium 3.9 3.3 - 5.1 mmol/L [facility] Chloride 109(H) 96 - 108 mmol/L [facility] Carbon Dioxide 23 22 - 29 mmol/L [facility] Anion Gap 11(L) 12 - 20 [facility] Urea Nitrogen (BUN) 9 9 - 16 mg/dL [facility] Creatinine, Serum 0.76 0.5 - 1.4 mg/dL [facility] Creatinine Clr Calc Pharmacy 92.0 [facility] Comment:Provided height and weight: 154.94 cm,96.615 kg.eGFR (calculated from the MDRD study equation) and eCrCl(calculated from the Cockcroft-Gault equation) are based ondifferent parameters and may not yield comparable results.If eCrCl result is absurd, please check patient'sheight/weight. Estimated Glomerular Filt Rate >60 [facility] Comment:Chronic Kidney Disea se: Estimated GFR < 60 mL/min/1.19z2Fcybvw Kidney Disease: Estimated GFR < 15 mL/min/1.73m2 Glucose 114 60 - 115 mg/dL [facility] Calcium 9.0 8.4 - 10.2 mg/dL [facility] Bilirubin, Total 0.6 0.0 - 1.0 mg/dL [facility] Aspartate Amino Transferase 18 5 - 31 U/L [facility] Alanine Aminotransferase 9 0 - 31 U/L [facility] Total Protein 7.5 6.5 - 8.0 g/dL [facility] Albumin Level 3.9 3.5 - 5.0 g/dL [facility] Alkaline Phosphatase 73 39 - 117 U/L [facility] 09/20/2024 6:19 AM EDT 09/20/2024 6:22 AM EDT us Generic External Data Provider LAB BLOOD ORDERAB LES Final Result [facility] [address] [place] [phone] * Vitamin D, 25-Hydroxy, Total, Immunoassay (08/31/2024 9:00 AM EDT) Vitamin D 25-OH Total 45.4 >30 ng/mL [facility] Comment: Health Based Reference Values*< 20 ??ng/mL ??Jzqldezjr50-27 ng/mL ??Insufficient> 30 ??ng/mL ??Sufficient*Maddie SORENSON. N [...] BLOOD ORDERABLES Final Result Performing Organization Address [facility] de Phone Number [facility] [address] [place] [address] [phone] * Vitamin B12/Folate, Serum Panel (08/31/2024 9:00 AM EDT) Vitamin B12 593 200 - 900 pg/mL [facility] Comment:NORMAL 200-900 PG/ML INDETERMINATE 160-199 PG/ML DEFICIENT < 160 PG/ML Folate 12.5 > or = 4.0 ng/mL [facility] Comment:Reference Values:> o r = 4.0 ng/mL< 4.0 ng/mL suggests folate deficiency Methotrexate, aminopterin and folinic acid(leucovorin) are chemotherapeutic agents whose molecularstructures are similar to folate; therefore, the Architectfolate assay cannot be used for patients using these drugs. Blood Venous blood specimen / Unknown 08/31/2024 9:00 AM EDT 08/31/2024 11:15 AM EDT Olamide Steevns MD LAB BLOOD ORDERABLES Final Result Performing Organization Address [facility] de Phone Number [facility] [address] [place] [phone] * US Retroperitoneal Complete (07/20/2024 12:40 PM EST) Anatomical Region Laterality Modality Ultrasound 07/20/2024 12:4 0 PM EST Narrative 07/20/2024 12:41 PM EST ? [facility] ?[address] ?[place] [address] ? Ultrasound Report ? Signed ? Patient: Riggins Dan,Laisha I ?MR#: M ?? [id number] ? : 1970 ?Acct:[id number] ? Age/Sex: 53 / F ?ADM Date: 07/18/24 ? Loc: HO.US ? Attending Dr: Jyotsna VOGEL ? Ordering Physician: Jyotsna Zaldivar ?? Date of Service: 07/18/24 ?? Procedure(s): US retroperitoneal comp ?? Accession Number(s): [id number] ? cc: Olamide Chandler MD; Jyotsna Zaldivar [...] DD/ 1240 ? TD/TT: 07/20/24 1240 ? Patient Services Manager: ? Procedure Note Ana, Image - 07/20/2024 [place] [address] Ultrasound Report Signed Patient: Laisha Ye IMR#: M [id number] : 1970Acct:[id number] Age/Sex: 53 / FADM Date: 07/18/24 Loc: HO.US Attending Dr: Jyotsna VOGEL Ordering Physician: Jyotsna Zaldivar Date of Service: 07/18/24 Procedure(s): US retroperitoneal comp Accession Number(s): [id number] cc: Olamide Chandler MD; Jyotsna Zaldivar CLINICAL [...] 07/20/24 1241 DD/ 1240 TD/TT: 07/20/24 1240 Patient Services Manager: [facility] External Provider IMG US PROCEDURES Final Result * (ABNORMAL) Lipid Panel with Reflex to Direct LDL (03/29/2024 9:50 AM EDT) Triglycerides 89 <150 mg/dL [facility] Comment:Desirable Triglyceri de: less than 150 mg/dLBorderline High Triglyceride 150-199 mg/dLHigh Triglyceride: 200-499 mg/dLVery High Triglyceride: greater than or equal to 5OO mg/dL Cholesterol 168 <200 mg/dL [facility] Comment:Desirable Cholestero l: less than 200 mg/dLBorderline High Cholesterol: 200-239 mg/dLHigh Cholesterol: greater than 239 mg/dL LDL Cholesterol Calculated 107(H) <100 mg/dL [facility] Comment:Desirable LDL: less than 100 [...] BLOOD ORDERABLES Final Result Performing Organization Address [facility] Co de Phone Number [facility] [address] [place] [phone] * Hemoglobin A1c (03/29/2024 9:50 AM EDT) Hemoglobin A1c 6.0 <6.0 % [facility] Comment:Hemoglobin A1C Refer ence Range Adults: 4.8 - 6.0 % Non diabetic: < 6.0 % Goal: < 7.0 %Additional Action Suggested: > 8.0 %Note: Hemoglobin A1c results are invalid for patients with abnormal amounts of HbF. Blood transfusions may impact the HbA1c concentration in the patient sample. Estimated Average Glucose 126 mg/dL [facility] Comment:eAG = Estimated ave rage glucose which is %A1C expressed asaverage glucose, using the formula of the O4K-PsfdoccShitruo Glucose study (ADAG), Diabetes Care, Vol.31,#8,Jan. 2007 Blood Venous blood specimen / Unknown 03/29/2024 9:50 AM EDT 03/29/2024 11:08 AM EDT Olamide Stevens MD LAB BLOOD ORDERABLES Final Result Performing Organization Address [facility] Co de Phone Number [facility] [address] [place] [phone] * BI Mammogram Screening Tomosynthesis Bilateral (09/15/2023 8:57 AM EDT) Anatomical Region Laterality Modality Breast Bilateral Mammography 09/15/2023 8:57 AM EDT Narrative 10/11/2023 6:12 AM EDT ? [facility] [place] ? [address] ?[place] [address] ? Mammography Report ? Signed ? Patient: Riggins Dan,Laisha I ?MR#: M ?? [id number] ? : 1970 ?Acct:[id number] ? Age/Sex: 52 / F ?ADM Date: 03/28/24 ? Loc: HO.MAMMO ? Attending Dr: Olamide Stevens MD ? Ordering Physician: Olamide Chandler MD ?Results: ?? 1Negative ? Date of Service: 09/15/23 ?Follow Up: 1 Year From Orig ?? inal Mammogram ? Procedure(s): MM tomosynthesis screening BI ?? Accession Number(s): [id number] ? cc: Olamide Chandler MD ? EXAMINATION: ?? MM SCREENING DIGITAL BREAST TOMOSYNTHESIS, BILATERAL ? CLINICAL INFORMATION: ? Screening. Asymptomatic. ? COMPARISON: ?? Mammography: This study is compared with prior exams dating back to ?? 2018. ? TECHNIQUE: ?? Digital breast tomosynthesis is [...] Leena Sandhu MD in OV> ? 10/11/23 06 ? DD/ 6 ? TD/TT: ? Patient Services Manager: ? Procedure Note Donotuseinterpreter, Image - 10/11/2023 [place] [facility] [address] [place] [address] Mammography Report Signed Patient: Laisha Ye IMR#: M [id number] : 1970Acct:[id number] Age/Sex: 52 / FADM Date: 09/15/23 Loc: HO.MAMMO Attending Dr: Olamide Stevens MD Ordering Physician: Olamide Chandler MDResults: 1Negative Date of Service: 09/15/23Follow Up: 1 Year From Orig inal Mammogram Procedure(s): MM tomosynthesis screening BI Accession Number(s): [id number] cc: Olamide Chandler MD EXAMINATION: MM SCREENING [...] in OV> 10/11/23 0608 DD/ 0857 TD/TT: Patient Services Manager: Olamdie Stevens MD IMG BI PROCEDURES Fin al Result * Image-Guided Pap with Age-Based Screening??with CT/NG,??Trichomonas (10/29/2022 11:29 AM EDT) Comment [employer] Comment: This order for age-based cervical cancer and STI screening follows ACOG guidelines(PB 168, 140, CSZ204). See individual assays for performing site location. Clinical Information: 52 Y/O F NO PREVIOUS ABNORMALITY C Jaxtrt LMP: NONE GIVEN Jaxtrt Prev. PAP: NONE GIVEN Jaxtrt Prev. BX: NONE GIVEN Jaxtrt SOURCE: None given Jaxtrt Statement Of Adequacy: [employer] Comment: Satisfactory for evaluation. Endocervical/transformation zone component absent. Interpretation/Re sult: Negative for intraepithelial lesion or malignancy. [employer] COMMENT: This Pap test has been evaluated with computer assisted technology. [employer] Dipper And Baker: Amalia [employer] Comment: EXJ, CT(ASCP) CT Screening Location: [place] [address] (Always Message) [facility] [employer] Comment: EXPLANATORY NOTE: The Pap is a [...] HPV nRNA E6/E7 Not Detected Not Detected [employer] Comment: Methodology: Office Chair Assembler-Mediated Amplification This assay detects E6/E7 viral messenger RNA (mRNA) from 14 high-risk HPV types (16,18,31,33,35,39,45,51,52,56,58,59,66,68). Cervical sources are required for HPV testing. If a vaginal source from a patient who has had a total hysterectomy with removal of cervix was submitted, please contact the testing laboratory for alternative testing options. For additional information, please refer to http://[employer]ic[employer]/faq/YEW677h9 (This link if provided for information/ educational purposes only.) Chlamydia trachomatis RNA, TMA, Urogenital NOT DETECTED NOT DETECTED [employer] Neisseria gonorrhoeae RNA, TMA, Urogenital NOT DETECTED NOT DETECTED [employer] (Always Message) [facility] [employer] Comment: The analytical performance characteristics of this assay, when used to test SurePath(TM) specimens have been determined by [employer]. The modifications have not been cleared or approved by the FDA. This assay has been validated pursuant to the CLIA regulations and is used for clinical purposes. For additional information, please refer to https://[employer].Medicast/faq/OJI467 (This link is being provided for information/ educational purposes only.) Trichomonas vaginalis, QL, TMA, PAP Vial NOT DETECTED NOT DETECTED [employer] Comment: The analytical performance characteristics of this assay have been determined by [employer]. The modifications have not been cleared or approved by the FDA. This assay has been validated pursuant to the CLIA regulations and is used for clinical purposes. For additional information, please refer to http://[facility]/ faq/Trichomonastma (This link is being provided for information/ educational purposes only.) Pap Vial 10/29/2022 11:2 9 AM EDT 10/31/2022 4:55 PM EDT us Olamide Stevesn MD LAB CYTOLOGY ORDERABL ES Final Result [facility] [address], [place] [address] [employer] [address] [place] [address] from Last 3 Months or Most Recently Relevant to Health Maintenance Insurance [facility] Care Teams Production Maintenance Technician Relationship Specialty Start Date End Date Olamide Chandler MD [address] [place] [id number] PCP - General Family Medicine 07/28/20
--- OUTSIDE RECORDS SUMMARY | 2024-10-03 08:04 | XMS_ITS | Clinical Summary ---
Author Organization [facility], Address [address] [place] [address] [place] [address] Phone Care Team Providers Care Gauge And Instrument Inspector Name Role Phone Olamide Chandler MD Primary [...] 4 Contact dermatitis caused by urushiol from [employer] poison james 12/28/2023 Bilateral lower leg edema [...] Visit [facility], [address] [place] [address] Mahendra Medel, [address] [place] [phone] Health Maintenance Due Date Last Done Comments Breast Cancer Screening 1970 Hepatitis B Vaccine (1 of 3 - 19+ 3-dose series) 10/21/1990 12/07/2017, 01/17/2017, 03/03/2016 Colorectal Cancer Screening: Annual FOBT 10/21/2020 Colorectal Cancer Screening: Colonoscopy 10/21/2020 Colorectal Cancer Screening: Sigmoidoscopy 10/21/2020 Pneumococcal Vaccine: 50+ Years Completed Pneumococcal Vaccine: Peds ( 0 to 5 Years) and At-Risk Patients (6 to 49 Years) Discontinued 10/28/2023 Influenza Vaccine Completed 03/12/2024, , 04/08/2021, Additional history exists Insurance [address] [place] [id number] [place] [address] Care Dual SNP ([id number]) NADIR WALKER [id number] Care Teams Gauge And Instrument Inspector Relationship Specialty Start Date End Date Olamide Chandler MD [address] [place] [address] NOEMY WEBSTER [phone] PCP - General Internal Medicine 10/27/23
--- OUTSIDE RECORDS SUMMARY | 2024-10-03 08:04 | XMS_ITS | Clinical Summary ---
Author Organization [facility] ity Address [address] [place] [address] Care Team Providers Care Resident Buyer Name Role Phone Unavailable Primary Care Provider [...] Influencers of Health Screening 08/26/2023 COVID-19 Vaccine (1 - 2023-2 5 season) 2024 Influenza Vaccine (Season Ended) 2025 HIB Vaccines Aged Out No longer eligi [...] age to complete this topic Meningococcal B Vaccine Aged Out No l onger eligible based on patient's age to complete [...]
--- OUTSIDE RECORDS SUMMARY | 2024-10-03 08:04 | XMS_ITS | Encounter Summary ---
Author Organization [facility] Address [address] [facility] 7t [place] [address] Care Team Providers Care Vascular Neurologist Name Role Phone Olamide Chandler MD Primary Care Provide r Encounter Details Date Type Department Care Team ([facility] st Contact Info) Description 08/18/2022 Telephone [facility] MEDICINE [address] [place], [place] [phone] Olamide Chandler MD [address] [place] [address] Social History Tobacco Use Types Packs/Day Years [...] on filedocumented in this encounter Care Teams Vascular Neurologist Relationship Specialty Start Date End Date Olamide Chandler MD [address] [place] [address] PCP - General Family Medicine 07/28/20 documented as of this encounter
--- OUTSIDE RECORDS SUMMARY | 2024-10-03 08:04 | XMS_ITS | Encounter Summary ---
Author Organization [employer] [employer] Address [address] [facility] 7t [place] [address] Care Team Providers Care Dictating Machine Transcriber Name Role Phone Olamide Chandler MD Primary Care Provide r Encounter Details Date Type Department Care Team ([facility] st Contact Info) Description 08/09/2024 Orders Only [facility] MEDICINE [address] [place], [place] [phone] Olamide Chandler MD [address] [place] [address] Social History Tobacco Use Types Packs/Day Years [...] is your housing situation today? I have jozefbi granados 08/05/[address] you [...] documented as of this encounter Care Teams Dictating Machine Transcriber Relationship Specialty Start Date End Date Olamide Chandler MD [address] [place] [address] PCP - General Family Medicine 07/28/20 documented as of this encounter
--- OUTSIDE RECORDS SUMMARY | 2024-10-03 08:04 | XMS_ITS | Encounter Summary ---
Author Organization [employer] Address [address] [facility] 7t [place] [address] Care Team Providers Care School Business Administrator Name Role Phone Olamide Chandler MD Primary Care Provide r Encounter Details Date Type Department Care Team (Late st Contact Info) Description 09/01/2022 Orders Only [facility] MEDICINE [address] [place] [address] Renée Okeefe [place] Social History Tobacco Use [...] (04/17/2023 1:20 AM EDT) Color Urine Yellow [facility] Appearance Urine Clear [facility] PH 6.0 5.0 - 9.0 [facility] Glucose Urine UA Negative Negative mg/dL [facility] Urine Blood Negative Negative [facility] Specific [place] - Urine <=1.005 1.005 - 1.025 [facility] Urine Protein Negative Neg-Trace mg/dL [facility] Urine Ketones Negative Negative mg/dL [facility] Nitrite Urine Negative Negative [facility] Leukocyte Esterase Urine Trace(A) Negative [facility] RBC Urine 0-2 0 - 2 /HPF [facility] Urine WBC 0-5 0 - 5 /HPF [facility] Urine Squamous Epithelial Cell 0-2 0 - 2 /HPF [facility] Urine Bacteria None Seen None Seen [facility] Hyaline Casts, Urine 0-2 0 - 2 /LPF [facility] 04/17/2023 1:20 AM EDT 04/17/2023 1:23 AM EDT Narrative [facility] - 04/17/2023 1:42 AM EDT [id number], Clean Catch us [facility] External Provider LAB URI NE ORDERABLES Final Result [facility] [address] [place] [phone] * B Type Natriuretic Peptide (BNP) (04/17/2023 12:46 AM EDT) B Type Natriuretic Peptide 44 <100 pg/mL [facility] Comment:For those patients w ho are being treated with Natrecor(nesiritide, recombinant BNP), BNP testing should beperformed at least two hours post treatment in order toensure that only endogenous levels of BNP are detected. 04/17/2023 12:4 6 AM EDT 04/17/2023 12:53 AM EDT us [facility] External Provider LAB BLO OD ORDERABLES Final Result [facility] [address] [place] [address] [phone] * BI Mammogram Screening Tomosynthesis Bilateral (09/09/2022 8:30 AM EDT) Anatomical Region Laterality Modality Breast Bilateral Mammography 09/09/2022 8:30 AM EDT Narrative 09/10/2022 11:56 AM EDT ? [facility] [place] ? [address] ?[place] [address] ? Mammography Report ? Signed ? Patient: Riggins Dan,Laisha I ?MR#: M ?? [id number] ? : 1970 ?Acct:[id number] ? Age/Sex: 51 / F ?ADM Date: 09/09/ ? Loc: HO.MAMMO ? Attending Dr: Olamide Stevens MD ? Ordering Physician: Olamide Chandler MD ?Results: ?? 1Negative ? Date of Service: 09/09/ ?Follow Up: 1 Year From Orig ?? inal Mammogram ? Procedure(s): MM tomosynthesis screening BI ?? Accession Number(s): [id number] ? cc: Olamide Chandler MD ? EXAMINATION: [...] 1153 ? DD/ 9 ? TD/TT: ? Hat Binder: SK ? Procedure Note Ana, Gloria - 09/10/2022 [facility] [address] [place] [address] [place] [address] Mammography Report Signed Patient: Laisha Ye IMR#: [id number] : 1970Acct:[id number] Age/Sex: 51 / FADM Date: 09/09/22 Loc: HO.MAMMO Attending Dr: Olamide Stevens MD Ordering Physician: Olamide Chandler MDResults: 1Negative Date of Service: 09/09/22Follow Up: 1 Year From Orig inal Mammogram Procedure(s): MM tomosynthesis screening BI Accession Number(s): [id number] cc: Olamide Chandler MD EXAMINATION: MM SCREENING [...] in OV> 09/10/22 1153 DD/ 0830 TD/TT: Hat Binder: SK [facility] External Provider IMG BI PROCEDURES Edited Result - Final documented in this encounter Visit Diagnoses Not on filedocumented in this encounter Care Teams School Business Administrator Relationship Specialty Start Date End Date Olamide Chandler MD [address] [place] [phone] PCP - General Family Medicine 07/28/20 documented as of this encounter
--- OUTSIDE RECORDS SUMMARY | 2024-10-03 08:04 | XMS_ITS | Encounter Summary ---
Author Organization [employer] Address [address] [facility] 7t [place] [address] Care Team Providers Care Bulk Tank Driver Name Role Phone Olamide Chandler MD Primary Care Provide r Reason for Visit * Reason Onset Date Comments Pre-visit Planning 03/02/2024 Encounter Details Date Type Department Care Team ([facility] st Contact Info) Description 03/02/2024 Telephone [facility] MEDICINE [address] [place], [place] [phone] Olamide Chandler MD [address] [place], [place] [phone] Pre-visit Planning Social History Tobacco Use Types [...] documented as of this encounter Care Teams Bulk Tank Driver Relationship Specialty Start Date End Date Olamide Chandler MD [address] [place] [address] PCP - General Family Medicine 07/28/20 documented as of this encounter
--- NOTE | 2024-10-03 08:27 | MHC.OFFVIS ---
Intake Visit Reasons: 3m/US(set) Intake Note: Patient is present for 3M/US Urology Medication:NONE Antibiotic Allergy:NONE Blood Thinner:NONE TODAY'S PVR: 0ML'S Environment Coordinator Required: No Allergies cinnamon [CINNAMON] Allergy (Intermediate, Verified 10/03/24 09:10) THROAT SWELLING soy Allergy (Intermediate, Verified 10/03/24 09:10) Itching calcium carbonate [From Tums] Allergy (Unknown, Verified 10/03/24 09:10) Unknown fluoxetine [From PROZAC] Allergy (Unknown, Verified 10/03/24 09:10) UNKNOWN Medication List - Last Reconciled 10/03/24 by JASPREET Mendoza albuterol sulfate 90 mcg/actuation 1 inh inhalation Q4H PRN bupropion HCl XL 150 mg PO QAM carvedilol 3.125 mg PO BID cholecalciferol (vitamin D3) 50 mcg PO DAILY 30 days citalopram 10 mg PO DAILY citalopram 20 mg PO DAILY CPAP (CPAP Machine/Device) As directed docusate sodium (Colace) 200 mg (2 x 100 mg) PO BEDTIME fluticasone propionate 50 mcg/actuation (Flonase Allergy Relief) 1 spray intranasal DAILY hydrocortisone 2.5% (Proctosol HC) 1 appl ID BEDTIME PRN levothyroxine (Euthyrox) 75 mcg PO QAM lorazepam 0.5 mg PO BID PRN methylcellulose (laxative) (Citrucel) 500 mg PO BID methylcellulose (laxative) (Citrucel) 500 mg PO TID 30 days omeprazole 40 mg PO DAILY triamcinolone acetonide 0.1% 1 appl topical BID-TID HPI Comments Details: Laisha is a very pleasant 53-year-old female patient of Dr. Stevens. She has a past medical history of sleep apnea, GERD, arthritis of bilateral hands and knees, depression, polyarthralgia, vitamin-D deficiency, and hypothyroidism. She presents to the office today for follow-up. Of note, patient was seen approximately 5 months ago as a new patient for ongoing urinary dribbling as well as bladder pressure at which time a retroperitoneal ultrasound was ordered for further assessment evaluation and recommendations were made for pelvic floor therapy as patient had also been reporting urge incontinence. Recent renal imaging results reviewed with the patient today 07/14 right kidney is normal in size and echotexture. No hydronephrosis. Mild expected compensatory hypertrophy. Left kidney absent. The urinary bladder is unremarkable pre void bladder volume is approximately 500 mL. Postvoid bladder volume is approximately 10 mL. Patient reports she was unable to initiate pelvic floor therapy in-person as she had to travel to [place] due to the loss of her nephew however has been doing pelvic floor exercises at home and feels this has been helpful. She otherwise denies nocturia, hematuria, dysuria, foul smelling urine, changes to urinary stream, flank pain, fever, and or chills. In office urinalysis results reviewed with the patient today. She does report a history of solitary kidney as she was only born with one kidney. She reports following up with Dr. Medel as her loading unit operator crimping and has been told her kidney function is within normal limits. When asked she denies any previous history of and or labors. We discussed bladder triggers/irritants. She discusses her recent ER visit due to episodes of diarrhea she had been experiencing with weight loss medications. However, has since decrease the dosing has not had any bothersome GI issues. She otherwise offers no other issues or concerns at this time. PVR 0 mL. BUN: 09/11 16, 10/12 9 Creatinine: 09/11 0.82, 10/12 0.76 [facility] Medical History (Reviewed 10/03/24 @ 09:14 by Jyotsna Zaldivar, [facility]) Sleep apnea GERD (gastroesophageal reflux disease) Osteoarthritis of hands, bilateral Osteoarthritis of knees, bilateral Flexor tenosynovitis of finger Bilateral hand pain Depression ESR raised Polyarthralgia Vitamin D deficiency Multinodular thyroid Hypothyroidism Surgical History Hx of colonoscopy Hx of tooth extraction Hx of endoscopy Hx of bilateral breast reduction surgery Family History Father Prostate cancer Hypothyroidism Mother Kidney problem Stroke Brother Kidney problem Social History Household Members: None Household Members Other:: Lives alone Housing: House Are you a primary managed care specialist to a significant other at home: No Do you presently have visiting nurse or other home services: Yes (CYBER TRANSPORT SYSTEMS SPECIALIST) 75 years or older and lives alone: No Alcohol intake: never Patient Tobacco Use Status: Never used Tobacco e-Cigarette/Vaping Use: Never Used service: No Current occupational status: disabled Review of Systems Const All systems reviewed & are unremarkable except as noted in HPI and below Physical Exam Const General: cooperative, healthy appearing, comfortable, no acute distress, well developed, alert and awake Orientation/consciousness: patient oriented x3 Limitations: no limitations HEENT Head: Yes normal to inspection, Yes normocephalic and Yes atraumatic Ears: hearing grossly normal bilaterally Eyes General: appearance normal, both eyes and all related structures Neck Neck: Yes normal visual inspection and Yes trachea midline Chest Chest palpation & inspection: normal inspection of the chest Resp Effort & Inspection: normal respiratory effort and able to speak in complete sentences Cardio Rate: regular rate GI Inspection: Yes normal to inspection General: Yes no CVA tenderness Back/Spine/Pelvis Back: no CVA tenderness Skin General skin exam: no rashes or lesions noted Neuro General: patient oriented x3 Extrem General: Yes normal to inspection Psych Appearance: grossly normal and well kempt Mental Status: mental status grossly normal Speech and movement: Normal speech and movement present and Clear speech present Affect: normal affect Attitude: cooperative Thought process: Normal thought process present Thought content: Normal thought content present Insight: Fair insight present (Psych) Judgement: Fair judgement present (Psych) Office Procedures Post Void Residual Post Residual Void Post Void Residual (PVR): 0 [address]346-[id number] Void Residual by ultrasound Results AMB Urinalysis, Automated UA Leukoctes 0 Brenton/uL Last Edit by SHADY Maldonado on 10/03/24 08:41 UA Nitrite Negative Last Edit by SHADY Maldonado on 10/03/24 08:41 UA Urobilinogen 0.2 mg/dL Last Edit by SHADY Maldonado on 10/03/24 08:41 UA Protein 0 mg/dL Last Edit by SHADY Maldonado on 10/03/24 08:41 UA pH 6.0 Last Edit by SHADY Maldonado on 10/03/24 08:41 UA Blood 0 Michael/uL Last Edit by SHADY Maldonado on 10/03/24 08:41 UA Specific Hurst 1.010 Last Edit by SHADY Maldonado on 10/03/24 08:41 UA Ketone Negative Last Edit by SHADY Maldonado on 10/03/24 08:41 UA Bilirubin 0 mg/dL Last Edit by SHADY Maldonado on 10/03/24 08:41 UA Glucose 0 mg/dL Last Edit by SHADY Maldonado on 10/03/24 08:41 Results Reviewed Results Reviewed: Laboratory Last Values Urine pH (Auto) 6.0 10/03/24 08:41 Specific [place]st (Auto) 1.010 10/03/24 08:41 Urine Protein (Auto) 0 mg/dL 10/03/24 08:41 Glucose (UA)(Auto) 0 mg/dL 10/03/24 08:41 Urine Ketones (Auto) Negative 10/03/24 08:41 Urine Blood (Auto) 0 Michael/uL 10/03/24 08:41 Urine Nitrite (Auto) Negative 10/03/24 08:41 Urine Bilirubin (Auto) 0 mg/dL 10/03/24 08:41 Urine Urobilinogen (Auto) 0.2 mg/dL 10/03/24 08:41 Leukocyte Esterase (Auto) 0 Brenton/uL 10/03/24 08:41 Date of Service: 07/18/24 Procedure(s): US retroperitoneal comp Findings: Right kidney normal size and echotexture, 14.2 cm length. No hydronephrosis. Mild expected compensatory hypertrophy. Normal color Doppler. Left kidney: Absent. Urinary bladder is unremarkable. Prevoid volume 494 mL. Postvoid volume 11 mL. Right ureteral jet visualized. IMPRESSION: The left kidney is absent. The right kidney is normal. Assessment & Plan Assessment & Plan (1) Urinary dribbling: Code(s): N39.43 - Post-void dribbling Category: Medical (2) Sensation of pressure in bladder area: Code(s): R39.89 - Other symptoms and signs involving the genitourinary system Category: Medical (3) Solitary kidney, congenital: Code(s): Q60.0 - Renal agenesis, unilateral Category: Medical Plan In office urinalysis results with the patient today; as noted above. PVR 0 mL. Recent retroperitoneal ultrasound results reviewed with the patient today; as noted above. Patient reports lower urinary tract symptoms she had been experiencing have significantly improved. Continue with pelvic floor exercises at home. Most recent BUN and creatinine results reviewed with the patient today; as noted above. She currently denies any bothersome urinary issues or concerns. She reports be happy with current voiding parameters. Follow-up in 6 months with PVR; or sooner with any issues, concerns, and or questions. Orders: Orders AMB Urinalysis Automated Today Z13.9 - Encounter for screening, unspecified Patient Instructions: The patient had an opportunity to ask questions regarding the treatment plan. All questions were answered. Physical exam, labs, and imaging were discussed and reviewed in detail. As well as risks, benefits, and discussion of treatment choices. No major barriers to understanding were identified. The patient expressed understanding and agreement with the above treatment plan. The patient was made aware they should contact our office by phone for worsening of their current condition, the appearance of new symptoms, or with any questions or concerns. Compliance is encouraged with any medications and follow up testing that is ordered. It is a privilege to be allowed the opportunity to participate in? your urological care.? Again, if you have any questions or concerns If you have any questions or concerns please do not hesitate to contact me. The office is [phone]. This note is constructed using voice recognition software. While every effort has been made to ensure accuracy stand up forklift operator errors may have been included. Yours sincerely, JASPREET Mendoza Coding Level of Care Code Est Pt Level 3 (23339) Complex EM visit Add On G2211 Diagnoses Urinary dribbling N39.43 Sensation of pressure in bladder area R39.89 Solitary kidney, congenital Q60.0 CPT Codes Post Residual Void - PVR CPT Code: 18326-Ztpr Void Residual by ultrasound ([id number])
== END 2024-10-03 09:07 | disposition home or self-care (01) ==
LOC: HO.HUSH 07:59
PROVIDERS: PCP Internal Medicine; Visit Provider Nurse Practitioner Family
DX: N39.43 Post-void dribbling (principal); R39.89 Other symptoms and signs involving the genitourinary system; Q60.0 Renal agenesis, unilateral; Z13.9 Encounter for screening, unspecified
CPT/HCPCS: 99213; G2211

== ENCOUNTER → 2024-10-03 07:59 | Outpatient (BNVA) | payer OTHER, SELFPAY | PROVIDERS: PCP Internal Medicine; Visit Provider Nurse Practitioner Family | DX: N39.43 Post-void dribbling (principal); R39.89 Other symptoms and signs involving the genitourinary system; Q60.0 Renal agenesis, unilateral | CPT/HCPCS: 51798; 81003; 99212 ==

== ENCOUNTER 2024-10-04 09:23 | Outpatient (REF) | payer OTHER, SELFPAY ==
--- OUTSIDE RECORDS SUMMARY | 2024-10-04 10:35 | XMS_ITS | Clinical Summary ---
Author Organization [facility], Address [address] [place] [address] [place] [address] Phone Care Team Providers Care Leasing Property Manager Name Role Phone Olamide Chandler MD [...] 4 Contact dermatitis caused by urushiol from [employer] poison james 12/28/2023 Bilateral lower leg edema [...] Visit [facility], [address] [place] [address] Mahendra Medel, [address] [place] [phone] Health Maintenance Due Date Last Done Comments [...] , 04/08/2021, Additional history exists Insurance [address] [place] [id number] [place] [address] Care Dual SNP ([id number]) NADIR WALKER [phone] Care Teams Leasing Property Manager Relationship Specialty Start Date End Date Olamide Chandler MD [address] [place] [address] NOEMY WEBSTER [phone] PCP - General Internal Medicine 10/27/23
--- OUTSIDE RECORDS SUMMARY | 2024-10-04 10:35 | XMS_ITS | Encounter Summary ---
Author Organization [employer] Address [address] [facility] 7t [place] [address] Care Team Providers Care Uppers Edge Burnisher Name Role Phone Olamide Chandler MD Primary Care Provide r Encounter Details Date Type Department Care Team ([facility] st Contact Info) Description 08/09/2024 Orders Only [facility] MEDICINE [address] [place], [place] [phone] Olamide Chandler MD [address] [place] [address] Social History Tobacco Use Types Packs/Day Years [...] documented as of this encounter Care Teams Uppers Edge Burnisher Relationship Specialty Start Date End Date Olamide Chandler MD [address] [place] [address] PCP - General Family Medicine 07/28/20 documented as of this encounter
--- OUTSIDE RECORDS SUMMARY | 2024-10-04 10:35 | XMS_ITS | Clinical Summary ---
Author Organization [employer] Address [address] [facility] 7t [place] [address] Care Team Providers Care Mud Analysis Supervisor Name Role Phone Olamide Chandler MD [...] MG TABLET 07/28/19 23 Active sodium chloride (Candler Nasal Malone) 0.65 % nasal sprayIndications: COVID-19 1-2 sprays [...] It seems to be Poison [place] or [place] rash. We discuss about avoiding scratching, use [...] Department Care Team Description 09/20/2024 Orders Only [address] [address] Olamide Chandler MD Class 3 severe obesity due to excess calories with serious comorbidity and body mass index (BMI) of 45.0 to 49.9 in adult (Primary Dx) 09/20/[address] [address] Olamide Chandler MD Nurse Triage 09/20/2024 Orders Only GENERIC EXTERNAL DATA DEPARTMENT Provider, Generic External Data 09/20/[address] [address] Olamide Chandler MD Vitamin D deficiency 09/19/[address] [address] Olamide Chandler MD Nurse Triage 09/03/[address] [address] Olamide Chandler MD Results 08/30/2024 9:00 AM EDT Telemedicine [address] [address] Olamide Chandler MD Constipation, unspecified constipation type (Primary Dx); Hair loss; Class 3 severe obesity due to excess calories with serious comorbidity and body mass index (BMI) of 45.0 to 49.9 in adult ([facility]); Chronic fatigue 08/30/2024 Travel 08/23/2024 Refill [facility] [address] [facility] [place] [address] Olamide Chandler MD Other specified hypothyroidism 08/22/2024 Refill [facility] [address] [facility] [place] [address] Olamide Chandler MD Seasonal allergies 08/14/2024 Telephone [facility] [address] [facility] [place] [address] Olamide Chandler MD Nurse Triage 08/09/2024 Orders Only [facility] [address] [facility] [place] [address] Olamide Chandler MD 08/09/2024 Refill [facility] [address] [place] [address] Olamide Chandler MD Class 3 severe obesity due to excess calories with serious comorbidity and body mass index (BMI) of 45.0 to 49.9 in adult ([facility]) 07/19/2024 Refill [facility] [address] [place] [address] Olamide Chandler MD Gastroesophageal reflux disease, unspecified whether esophagitis present 07/18/2024 Orders Only [facility] External Provider, [facility] 07/12/2024 Telephone [facility] [address] [place] [address] Olamide Chandler MD 07/08/2024 Refill [facility] [address] [place] [address] Olamide Chandler MD Class 3 severe obesity due to excess calories with serious comorbidity and body mass index (BMI) of 45.0 to 49.9 in adult ([facility]) from Last 3 Months Immunizations Name Administration [...] AM EDT) Influenza A PCR NEGATIVE Negative [facility] Influenza B PCR NEGATIVE Negative [facility] Resp Syncy Virus RNA Qual PCR NEGATIVE Negative [facility] SARS COV2 PCR NEGATIVE Negative [facility] Comment:All test results mus t be [...] use by authorized laboratories.Testing performed on the [employer] GeneXpert utilizingreal-time RT-PCR.All SARS CoV2 and positive influenza A/B results arereported to [facility]. 09/20/2024 8:39 AM EDT 09/20/2024 8:42 AM EDT us Generic External Data Provider LAB MICROBIOLOGY - GENERAL ORDERABLES Final Result [facility] [address] [place] [phone] * CDiff Gene PCR (09/20/2024 8:32 AM EDT) CDiff Gene PCR NEGATIVE Negative [facility] Comment:If C. difficile stro ngly suspected despite one negativetest, a second test may be sent vs. empiric treatment forC. difficile infection. 09/20/2024 8:32 AM EDT 09/20/2024 8:38 AM EDT us Generic External Data Provider LAB BODY FLUIDS A ND STOOLS ORDERABLES Final Result [facility] [address] [place] [address] [phone] * Gastrointestinal panel (09/20/2024 8:32 AM EDT) Campylobacter Not Detected Not Detect. [facility] Plesiomonas shigelloides Not Detected Not Detect. [facility] Salmonella Not Detected Not Detect. [facility] Vibrio Not Detected Not Detect. [facility] Vibrio cholerae Not Detected Not Detect. [facility] YERSINIA ENTEROCOLITICA Not Detected Not Detect. [facility] Enteroaggregative E. coli (EAEC) Not Detected Not Detect. [facility] Enteropathogenic E. coli (EPEC) Not Detected Not Detect. [facility] Enterotoxigenic E. coli (ETEC) lt/st Not Detected Not Detect. [facility] Shiga-like toxin-producing E. coli (STEC) stx1/stx2 Not Detected Not Detect. [facility] E coli O157 Not applicable Not Detect. [facility] Comment:E. coli containing t he O157 antigen are a subset ofShiga-like toxin- producing E. coli (STEC). Shigella/Enteroinvasive E. coli (EIEC) Not Detected Not Detect. [facility] Cryptosporidium Not Detected Not Detect. [facility] Cyclospora cayetanensis Not Detected Not Detect. [facility] Entamoeba histolytica Not Detected Not Detect. [facility] Giardia lamblia Not Detected Not Detect. [facility] Adenovirus F 40/41 Not Detected Not Detect. [facility] Astrovirus Not Detected Not Detect. [facility] Norovirus GI/GII Not Detected Not Detect. [facility] Rotavirus A Not Detected Not Detect. [facility] Sapovirus Not Detected Not Detect. [facility] Comment: All results must be [...] assay is performed by Multiplexed PCR, utilizing [employer] Array. 09/20/2024 8:32 AM EDT 09/20/2024 8:38 AM EDT us Generic External Data Provider LAB MICROBIOLOGY - GENERAL ORDERABLES Final Result [facility] [address] [place] [phone] * Urinalysis, Complete, with Reflex to Culture (09/20/2024 6:37 AM EDT) Color Urine Yellow [facility] Appearance Urine Clear [facility] PH 6.0 5.0 - 9.0 [facility] Glucose Urine UA Negative Negative mg/dL [facility] Urine Blood Trace Negative [facility] Specific [place] - Urine 1.020 1.005 - 1.025 [facility] Urine Protein Negative Neg-Trace mg/dL [facility] Urine Ketones Negative Negative mg/dL [facility] Nitrite Urine Negative Negative [facility] Leukocyte Esterase Urine Negative Negative [facility] RBC Urine 0-2 0 - 2 /HPF [facility] Urine WBC 0-5 0 - 5 /HPF [facility] Urine Squamous Epithelial Cell 0-2 0 - 2 /HPF [facility] Urine Bacteria None Seen None Seen [facility] Hyaline Casts, Urine 0-2 0 - 2 /LPF [facility] 09/20/2024 6:37 AM EDT 09/20/2024 6:42 AM EDT Narrative [facility] - 09/20/2024 6:49 AM EDT [id number], Clean Catch us Generic External Data Provider LAB URINE ORDERAB LES Final Result [facility] [address] [place] [phone] * (ABNORMAL) CBC auto differential (09/20/2024 6:19 AM EDT) Only the most recent of2 resultswithin the time period is included. White Blood Count 7.9 4.8 - 10.8 X10*3/uL [facility] Red Blood Count 4.57 4.20 - 5.50 X10*6/uL [facility] Hemoglobin 13.2 12.0 - 16.0 g/dl [facility] Hematocrit 39.2 37.0 - 47.0 % [facility] Mean Corpuscular Volume 85.8 80.0 - 98.0 fL [facility] Mean Corpuscular Hemoglobin 28.9 27.0 - 33.0 pg [facility] Mean Corpuscular HGB Conc 33.7 31.0 - 35.0 g/dl [facility] Red Cell Distribution Width 12.4 11.0 - 16.0 % [facility] Platelet Count 326 160 - 400 X10*3/uL [facility] Mean Platelet Volume 9.1(L) 9.4 - 12.3 fL [facility] Neutrophils Percent Auto 70.1 45 - 73 % [facility] Imm Gran Pct Auto 0.4 0.0 - 0.4 % [facility] Lymphocytes Percent Auto 18.9(L) 20 - 40 % [facility] Monocytes Percent Auto 8.7 2 - 11 % [facility] Eosinophils Percent Auto 1.4 0 - 4 % [facility] Basophils Percent Auto 0.5 0 - 2 % [facility] NRBC Pct Auto 0.0 0.0 - 0.2 /100WBC [facility] Neutrophils Absolute Auto 5.6 2.0 - 8.3 x10*3/uL [facility] Imm Gran Abs Auto 0.03 0.00 - 0.03 X10*3/uL [facility] Lymphocytes Absolute Auto 1.5 1.2 - 4.9 X10*3/uL [facility] Monocytes Absolute Auto 0.7 0.1 - 1.2 X10*3/uL [facility] Eosinophils Absolute Auto 0.1 0.0 - 0.4 X10*3/uL [facility] Basophils Absolute Auto 0.0 0.0 - 0.2 X10*3/uL [facility] NRBC Abs Auto 0.000 0.0 - 0.012 X10*3/uL [facility] 09/20/2024 6:19 AM EDT 09/20/2024 6:22 AM EDT us Generic External Data Provider LAB BLOOD ORDERAB LES Final Result Performing Organization Address [facility]/ZIP Co de Phone Number [facility] [address] [place] [phone] * Magnesium (09/20/2024 6:19 AM EDT) Magnesium 2.0 1.6 - 2.6 mg/dL [facility] 09/20/2024 6:19 AM EDT 09/20/2024 6:22 AM EDT us Generic External Data Provider LAB BLOOD ORDERAB LES Final Result Performing Organization Address City/[facility] Co de Phone Number [facility] [address] [place] [phone] * Lipase (09/20/2024 6:19 AM EDT) Lipase 27 8 - 78 U/L [facility] 09/20/2024 6:19 AM EDT 09/20/2024 6:22 AM EDT us Generic External Data Provider LAB BLOOD ORDERAB LES Final Result [facility] [address] [place] [phone] * (ABNORMAL) Comprehensive Metabolic Panel (09/20/2024 6:19 AM EDT) Only the most recent of2 resultswithin the time period is included. Sodium 139 135 - 145 mmol/L [facility] Potassium 3.9 3.3 - 5.1 mmol/L [facility] Chloride 109(H) 96 - 108 mmol/L [facility] Carbon Dioxide 23 22 - 29 mmol/L [facility] Anion Gap 11(L) 12 - 20 [facility] Urea Nitrogen (BUN) 9 9 - 16 mg/dL [facility] Creatinine, Serum 0.76 0.5 - 1.4 mg/dL [facility] Creatinine Clr Calc Pharmacy 92.0 [facility] Comment:Provided height and weight: 154.94 cm,96.615 kg.eGFR (calculated from the MDRD study equation) and eCrCl(calculated from the Cockcroft-Gault equation) are based ondifferent parameters and may not yield comparable results.If eCrCl result is absurd, please check patient'sheight/weight. Estimated Glomerular Filt Rate >60 [facility] Comment:Chronic Kidney Disea se: Estimated GFR < 60 mL/min/1.65n3Rtmnjf Kidney Disease: Estimated GFR < 15 mL/min/1.73m2 Glucose 114 60 - 115 mg/dL [facility] Calcium 9.0 8.4 - 10.2 mg/dL [facility] Bilirubin, Total 0.6 0.0 - 1.0 mg/dL [facility] Aspartate Amino Transferase 18 5 - 31 U/L [facility] Alanine Aminotransferase 9 0 - 31 U/L [facility] Total Protein 7.5 6.5 - 8.0 g/dL [facility] Albumin Level 3.9 3.5 - 5.0 g/dL [facility] Alkaline Phosphatase 73 39 - 117 U/L [facility] 09/20/2024 6:19 AM EDT 09/20/2024 6:22 AM EDT us Generic External Data Provider LAB BLOOD ORDERAB LES Final Result [facility] [address] [place] [phone] * Vitamin D, 25-Hydroxy, Total, Immunoassay (08/31/2024 9:00 AM EDT) Vitamin D 25-OH Total 45.4 >30 ng/mL [facility] Comment: Health Based Reference Values*< 20 ??ng/mL ??Dopjohtqr09-78 ng/mL ??Insufficient> 30 ??ng/mL ??Sufficient*Maddie SORENSON. N [...] BLOOD ORDERABLES Final Result Performing Organization Address [facility] de Phone Number [facility] [address] [place] [phone] * Vitamin B12/Folate, Serum Panel (08/31/2024 9:00 AM EDT) Vitamin B12 593 200 - 900 pg/mL [facility] Comment:NORMAL 200-900 PG/ML INDETERMINATE 160-199 PG/ML DEFICIENT < 160 PG/ML Folate 12.5 > or = 4.0 ng/mL [facility] Comment:Reference Values:> o r = [...] BLOOD ORDERABLES Final Result Performing Organization Address [facility] de Phone Number [facility] [address] [place] [phone] * US Retroperitoneal Complete (07/20/2024 12:40 PM EST) Anatomical Region Laterality Modality Ultrasound 07/20/2024 12:4 0 PM EST Narrative 07/20/2024 12:41 PM EST ? [facility] ?[address] ?[place] [address] ? Ultrasound Report ? Signed ? Patient: Riggins Dan,Laisha I ?MR#: M ?? [id number] ? : 1970 ?Acct:[id number] ? Age/Sex: 53 / F ?ADM Date: 07/18/24 ? Loc: HO.US ? Attending Dr: Jyotsna VOGEL ? Ordering Physician: Jyotsna Zaldivar ?? Date of Service: 07/18/24 ?? Procedure(s): US retroperitoneal comp ?? Accession Number(s): [id number] ? cc: Olamide Chandler MD; Jyotsna Zaldivar [...] DD/ 1240 ? TD/TT: 07/20/24 1240 ? Process Trainer: ? Procedure Note Ana, Image - 07/20/2024 [place] [address] Ultrasound Report Signed Patient: Laisha Ye IMR#: M [id number] : 1970Acct:[id number] Age/Sex: 53 / FADM Date: 07/18/24 Loc: HO.US Attending Dr: Jyotsna VOGEL Ordering Physician: Jyotsna Zaldivar Date of Service: 07/18/24 Procedure(s): US retroperitoneal comp Accession Number(s): [id number] cc: Olamide Chandler MD; Jyotsna Zaldivar CLINICAL [...] 07/20/24 1241 DD/ 1240 TD/TT: 07/20/24 1240 Process Trainer: [facility] External Provider IMG US PROCEDURES Final Result * (ABNORMAL) Lipid Panel with Reflex to Direct LDL (03/29/2024 9:50 AM EDT) Triglycerides 89 <150 mg/dL [facility] Comment:Desirable Triglyceri de: less than 150 mg/dLBorderline High Triglyceride 150-199 mg/dLHigh Triglyceride: 200-499 mg/dLVery High Triglyceride: greater than or equal to 5OO mg/dL Cholesterol 168 <200 mg/dL [facility] Comment:Desirable Cholestero l: less than 200 mg/dLBorderline High Cholesterol: 200-239 mg/dLHigh Cholesterol: greater than 239 mg/dL LDL Cholesterol Calculated 107(H) <100 mg/dL [facility] Comment:Desirable LDL: less than 100 mg/dLNear Optimal/Above Optimal LDL: 110- 129 mg/dLBorderline High LDL: 130-159 mg/dLHigh LDL: 160-189 mg/dLVery High LDL: greater than or equal to 190 mg/dL HDL Cholesterol 44 >40 mg/dL [facility] Comment:Desirable HDL: great er than 40 mg/dL Note: This HDL assay may give artificially low results in patients with liver disease. Blood 03/29/2024 9:50 AM EDT 03/29/2024 11:08 AM EDT us Olamide Stevens MD LAB BLOOD ORDERABLES Final Result Performing Organization Address [facility] Co de Phone Number [facility] [address] [place] [phone] * Hemoglobin A1c (03/29/2024 9:50 AM EDT) Hemoglobin A1c 6.0 <6.0 % [facility] Comment:Hemoglobin A1C Refer ence Range Adults: 4.8 - 6.0 % Non diabetic: < 6.0 % Goal: < 7.0 %Additional Action Suggested: > 8.0 %Note: Hemoglobin A1c results are invalid for patients with abnormal amounts of HbF. Blood transfusions may impact the HbA1c concentration in the patient sample. Estimated Average Glucose 126 mg/dL [facility] Comment:eAG = Estimated ave rage glucose which is %A1C expressed asaverage glucose, using the formula of the N4E-ZcfqrxjLeyyqcj Glucose study (ADAG), Diabetes Care, Vol.31,#8,Jan. 2007 Blood Venous blood specimen / Unknown 03/29/2024 9:50 AM EDT 03/29/2024 11:08 AM EDT Olamide Stevens MD LAB BLOOD ORDERABLES Final Result Performing Organization Address [facility] Co de Phone Number [facility] [address] [place] [address] [phone] * BI Mammogram Screening Tomosynthesis Bilateral (09/15/2023 8:57 AM EDT) Anatomical Region Laterality Modality Breast Bilateral Mammography 09/15/2023 8:57 AM EDT Narrative 10/11/2023 6:12 AM EDT ? [facility] [place] ? [address] ?[place] [address] ? Mammography Report ? Signed ? Patient: Riggins Dan,Laisha I ?MR#: M ?? [id number] ? : 1970 ?Acct:[id number] ? Age/Sex: 52 / F ?ADM Date: 03/28/24 ? Loc: HO.MAMMO ? Attending Dr: Olamide Stevens MD ? Ordering Physician: Olamide Chandler MD ?Results: ?? 1Negative ? Date of Service: 09/15/23 ?Follow Up: 1 Year From Orig ?? inal Mammogram ? Procedure(s): MM tomosynthesis screening BI ?? Accession Number(s): [id number] ? cc: Olamide Chandler MD ? EXAMINATION: [...] 06 ? DD/ 6 ? TD/TT: ? Process Trainer: ? Procedure Note Donotuseinterpreter, Image - 10/11/2023 [place] [facility] [address] [place] [address] Mammography Report Signed Patient: Laisha Ye IMR#: M [id number] : 1970Acct:[id number] Age/Sex: 52 / FADM Date: 09/15/23 Loc: HO.MAMMO Attending Dr: Olamide Stevens MD Ordering Physician: Olamide Chandler MDResults: 1Negative Date of Service: 09/15/23Follow Up: 1 Year From Orig inal Mammogram Procedure(s): MM tomosynthesis screening BI Accession Number(s): [id number] cc: Olamide hCandler MD EXAMINATION: MM SCREENING DIGITAL BREAST TOMOSYNTHESIS, [...] in OV> 10/11/23 0608 DD/ 0857 TD/TT: Process Trainer: Olamide Stevens MD IMG BI PROCEDURES Fin al Result * Image-Guided Pap with Age-Based Screening??with CT/NG,??Trichomonas (10/29/2022 11:29 AM EDT) Comment [facility] Comment: This order for age-based cervical cancer and STI screening follows ACOG guidelines(PB 168, 140, VIX586). See individual assays for performing site location. Clinical Information: 52 Y/O F NO PREVIOUS ABNORMALITY C [employer] LMP: NONE GIVEN [employer] Prev. PAP: NONE GIVEN [employer] Prev. BX: NONE GIVEN [employer] SOURCE: None given [employer] Statement Of Adequacy: [facility] Comment: Satisfactory for evaluation. Endocervical/transformation zone component absent. Interpretation/Re sult: Negative for intraepithelial lesion or malignancy. [facility] COMMENT: This Pap test has been evaluated with computer assisted technology. [employer] Water Resource Project Manager: Amalia Ivaldit Comment: EXJ, CT(ASCP) CT Screening Location: [place] [address] (Always Message) [facility] [employer] Comment: EXPLANATORY NOTE: The Pap is a [...] HPV nRNA E6/E7 Not Detected Not Detected [facility] Comment: Methodology: Wet Machine Operator-Mediated Amplification This assay detects E6/E7 viral messenger RNA (mRNA) from 14 high-risk HPV types (16,18,31,33,35,39,45,51,52,56,58,59,66,68). Cervical sources are required for HPV testing. If a vaginal source from a patient who has had a total hysterectomy with removal of cervix was submitted, please contact the testing laboratory for alternative testing options. For additional information, please refer to [email or web address]/faq/JZW701v6 (This link if provided for information/ educational purposes only.) Chlamydia trachomatis RNA, TMA, Urogenital NOT DETECTED NOT DETECTED [facility] Neisseria gonorrhoeae RNA, TMA, Urogenital NOT DETECTED NOT DETECTED [facility] (Always Message) [facility] [employer] Comment: The analytical performance characteristics of this assay, when used to test SurePath(TM) specimens have been determined by [facility]. The modifications have not been cleared or approved by the FDA. This assay has been validated pursuant to the CLIA regulations and is used for clinical purposes. For additional information, please refer to [email or web address]/faq/PXY812 (This link is being provided for information/ educational purposes only.) Trichomonas vaginalis, QL, TMA, PAP Vial NOT DETECTED NOT DETECTED [facility] Comment: The analytical performance characteristics of this assay have been determined by [facility]. The modifications have not been cleared or approved by the FDA. This assay has been validated pursuant to the CLIA regulations and is used for clinical purposes. For additional information, please refer to http://[employer]/ faq/Trichomonastma (This link is being provided for information/ educational purposes only.) Pap Vial 10/29/2022 11:2 9 AM EDT 10/31/2022 4:55 PM EDT us Olamide Stevens MD LAB CYTOLOGY ORDERABL ES Final Result [facility] [address], [place] [address] [facility] [place] [facility] [address] [place] [phone] from Last 3 Months or Most Recently Relevant to Health Maintenance Insurance [facility] Care Teams Mud Analysis Supervisor Relationship Specialty Start Date End Date Olamide Chandler MD [address] [place] [phone] PCP - General Family Medicine 07/28/20
--- OUTSIDE RECORDS SUMMARY | 2024-10-04 10:35 | XMS_ITS | Encounter Summary ---
Author Organization [employer] Address [address] [facility] [address] [place] [address] Care Team Providers Care Structural Worker Name Role Phone Olamide Chandler MD Primary Care Provide r Reason for Visit * Reason Onset Date Comments Pre-visit Planning 03/02/2024 Encounter Details Date Type Department Care Team ([facility] st Contact Info) Description 03/02/2024 Telephone [facility] [address] [place], [place] [phone] Olamide Chandler MD [address] [place], [place] [phone] Pre-visit Planning Social History Tobacco Use Types [...] documented as of this encounter Care Teams Structural Worker Relationship Specialty Start Date End Date Olamide Chandler MD [address] [place] [phone] PCP - General Family Medicine 07/28/20 documented as of this encounter
--- OUTSIDE RECORDS SUMMARY | 2024-10-04 10:35 | XMS_ITS | Encounter Summary ---
Author Organization [employer] Address [address] [facility] [address] [place] [address] Care Team Providers Care Payroll Tax Specialist Name Role Phone Olamide Chandler MD Primary Care Provide r Encounter Details Date Type Department Care Team (Late st Contact Info) Description 09/01/2022 Orders Only [facility] [address] [place] [address] Renée Okeefe MA Social History Tobacco Use [...] (04/17/2023 1:20 AM EDT) Color Urine Yellow [facility] Appearance Urine Clear [facility] PH 6.0 5.0 - 9.0 [facility] Glucose Urine UA Negative Negative mg/dL [facility] Urine Blood Negative Negative [facility] Specific [place] - Urine <=1.005 1.005 - 1.025 [facility] Urine Protein Negative Neg-Trace mg/dL [facility] Urine Ketones Negative Negative mg/dL [facility] Nitrite Urine Negative Negative [facility] Leukocyte Esterase Urine Trace(A) Negative [facility] RBC Urine 0-2 0 - 2 /HPF [facility] Urine WBC 0-5 0 - 5 /HPF [facility] Urine Squamous Epithelial Cell 0-2 0 - 2 /HPF [facility] Urine Bacteria None Seen None Seen [facility] Hyaline Casts, Urine 0-2 0 - 2 /LPF [facility] 04/17/2023 1:20 AM EDT 04/17/2023 1:23 AM EDT Narrative [facility] - 04/17/2023 1:42 AM EDT [id number], Clean Catch us [facility] External Provider LAB URI NE ORDERABLES Final Result [facility] [address] [place] [phone] * B Type Natriuretic Peptide (BNP) (04/17/2023 12:46 AM EDT) B Type Natriuretic Peptide 44 <100 pg/mL [facility] Comment:For those patients w ho are being treated with Natrecor(nesiritide, recombinant BNP), BNP testing should beperformed at least two hours post treatment in order toensure that only endogenous levels of BNP are detected. 04/17/2023 12:4 6 AM EDT 04/17/2023 12:53 AM EDT us [facility] External Provider LAB BLO OD ORDERABLES Final Result [facility] [address] [place] [address] [phone] * BI Mammogram Screening Tomosynthesis Bilateral (09/09/2022 8:30 AM EDT) Anatomical Region Laterality Modality Breast Bilateral Mammography 09/09/2022 8:30 AM EDT Narrative 09/10/2022 11:56 AM EDT ? [facility] [place] ? [address] ?[place] [address] ? Mammography Report ? Signed ? Patient: Riggins Dan,Laisha I ?MR#: M ?? [id number] ? : 1970 ?Acct:[id number] ? Age/Sex: 51 / F ?ADM Date: 09/09/ ? Loc: HO.MAMMO ? Attending Dr: Olamide Stevens MD ? Ordering Physician: Olamide Chandler MD ?Results: ?? 1Negative ? Date of Service: 09/09/ ?Follow Up: 1 Year From Orig ?? inal Mammogram ? Procedure(s): MM tomosynthesis screening BI ?? Accession Number(s): [id number] ? cc: Olamide Chandler MD ? EXAMINATION: [...] 1153 ? DD/ 9 ? TD/TT: ? Accounting Supervisor: SK ? Procedure Note Ana, Gloria - 09/10/2022 [facility] [address] [place] [address] [place] [address] Mammography Report Signed Patient: Laisha Ye IMR#: [id number] : 1970Acct:[id number] Age/Sex: 51 / FADM Date: 09/09/22 Loc: HO.MAMMO Attending Dr: Olamide Stevens MD Ordering Physician: Olamide Chandler MDResults: 1Negative Date of Service: 09/09/22Follow Up: 1 Year From Orig inal Mammogram Procedure(s): MM tomosynthesis screening BI Accession Number(s): [id number] cc: Olamide Chandler MD EXAMINATION: MM SCREENING [...] in OV> 09/10/22 1153 DD/ 0830 TD/TT: Accounting Supervisor: SK [facility] External Provider IMG BI PROCEDURES Edited Result - Final documented in this encounter Visit Diagnoses Not on filedocumented in this encounter Care Teams Payroll Tax Specialist Relationship Specialty Start Date End Date Olamide Chandler MD [address] [place] [phone] PCP - General Family Medicine 07/28/20 documented as of this encounter
--- OUTSIDE RECORDS SUMMARY | 2024-10-04 10:35 | XMS_ITS | Encounter Summary ---
Author Organization [employer] Address [address] [facility] [address] [place] [address] Care Team Providers Care Social Services Counselor Name Role Phone Olamide Chandler MD Primary Care Provide r Encounter Details Date Type Department Care Team ([facility] st Contact Info) Description 08/18/2022 Telephone [facility] [address] [place], [place] [phone] Olamide Chandler MD [address] [place] [address] Social History Tobacco Use Types Packs/Day Years [...] on filedocumented in this encounter Care Teams Social Services Counselor Relationship Specialty Start Date End Date Olamide Chandler MD [address] [place] [address] PCP - General Family Medicine 07/28/20 documented as of this encounter
--- OUTSIDE RECORDS SUMMARY | 2024-10-04 10:35 | XMS_ITS | Clinical Summary ---
Author Organization [facility] it[facility] Address [address] [place] [address] Care Team Providers Care Tractor Trailer Moving Van Driver Name Role Phone Unavailable Primary Care Provider [...]
== END 2024-10-04 09:24 | disposition home or self-care (01) ==
LOC: HO.MAMMO 09:23
PROVIDERS: PCP Internal Medicine; Visit Provider Internal Medicine
DX: Z12.31 Encounter for screening mammogram for malignant neoplasm of breast (principal)
CPT/HCPCS: 77063; 77067

== ENCOUNTER → 2024-10-04 09:30 | Outpatient (BNV) | payer OTHER, SELFPAY | PROVIDERS: PCP Internal Medicine; Visit Provider Internal Medicine | DX: Z12.31 Encounter for screening mammogram for malignant neoplasm of breast (principal) | CPT/HCPCS: 77063; 77067 ==

== ENCOUNTER 2024-11-14 10:10 | Outpatient (REF) | payer OTHER, SELFPAY ==
--- NOTE | ~2024-11-14 | US_ITS ---
EXAMINATION: MM DIAGNOSTIC DIGITAL BREAST TOMOSYNTHESIS, LEFT Limited left breast ultrasound. CLINICAL INFORMATION: Called back from screening for focal asymmetry in the upper outer breast. COMPARISON: Mammography: TECHNIQUE: Digital breast tomosynthesis is performed in both the craniocaudal and mediolateral oblique views along with computer-aided detection (CAD). Synthesized 2D images are generated from the tomosynthesis. FINDINGS: There are scattered areas of fibroglandular density (ACR BI-RADS breast composition Category b). Post reduction mammoplasty changes. Previously seen focal asymmetry in the upper outer breast anterior depth partially effaces on additional imaging projections. No suspicious calcifications or other abnormal findings. Targeted color Doppler ultrasound scanning in the upper outer breast from 10 2:00 demonstrates a heterogeneous echo correlate solid mass versus complicated cyst versus patch of normal fibronodular breast tissue at 1:00 1 cm from the nipple measuring proximal a 5 x 3 x 7 mm. This is a questionable correlate for the area seen on mammography. There is no internal vascular flow. US/US breast LT limited mamm only IMPRESSION: Focal asymmetry in the upper outer breast anterior depth and heterogeneous hypoechoic solid mass versus complicated cyst versus patch of normal fibronodular breast tissue in the left breast at 1:00. Recommend 6 month follow-up left breast mammogram and ultrasound for further evaluation of stability. ASSESSMENT: BI-RADS BI-RADS 3 - Probably benign finding(s) - 6 month follow-up suggested RECOMMENDATION: 6 Month F/U Results were provided to the patient at time of visit by the technologist. This patient's information was entered into a reminder system with a target due date for their next mammogram. Electronically signed by: Deana Shafer DO 11/14/2024 03:05 PM EDT
--- OUTSIDE RECORDS SUMMARY | 2024-11-14 11:10 | XMS_ITS | Clinical Summary ---
Author Organization [employer] Address [address] [facility] 7 [place] [address] Care Team Providers Care Customer Engagement Analyst Name Role Phone Olamide Chandler MD [...] 1 TABLET BY MOUTH EVERY MORNING DIRECTED 023 Active citalopram (CeleXA) 20 MG tablet Take 20 mg by mouth in the morning. 023 Active citalopram (CeleXA) 10 MG tablet TAKE 1 TABLET BY MOUTH EVERY DAY IN ADDITION TO 20 MG TABLET 023 Active sodium chloride ([place] Nasal [place]) 0.65 % nasal sprayIndications: COVID-19 1-2 sprays on each nostril every 2-3 hours as needed for nasal congestion 30 mL 1 023 Active cyclobenzaprine (Flexeril) 10 MG tabletIndications :Acute pain of right shoulder Take 1 tablet (10 mg) by mouth 3 times daily for 10 days. 30 tablet 023 Active loratadine (Claritin) 10 MG tablet Take 1 tablet (10 mg) by mouth in the morning. 30 tablet 2 023 Active albuterol 108 (90 Base) MCG/ACT inhalerIndication s:Uncomplicated asthma, unspecified asthma severity, unspecified whether persistent Inhale 2 puffs every 4 (four) hours if needed for wheezing or shortness of breath. 18 g 3 023 Active clobetasol (Temovate) 0.05 % cream Apply topically 2 times daily. 45 g 1 024 Active diphenhydrAMINE (BENADryl) 25 MG capsule Take 1 capsule (25 mg) by mouth every 6 (six) hours if needed for itching. May take 1-2 capsules prn rash or itching 40 capsule 1 024 2024 Active carvedilol (Coreg) 6.25 MG tabletIndications :Essential hypertension Take 1 tablet (6.25 mg) by mouth with breakfast and with evening meal. 60 tablet 11 024 2024 Active ammonium lactate (Lac-Hydrin) 12 % lotionIndications :Dry skin dermatitis Apply topically if needed for dry skin. 225 g 1 024 2024 Active pseudoephedrine (Sudafed) 30 MG tablet Take 1 tablet (30 mg) by mouth every 4 (four) hours if needed for congestion for up to 10 days. 30 tablet 024 Active fluticasone (Flonase) 50 MCG/ACT nasal sprayIndications: Seasonal allergies SHAKE LIQUID AND USE 2 SPRAYS IN EACH NOSTRIL EVERY MORNING NEEDED FOR ALLERGIES 48 g 025 Active levothyroxine (Synthroid, Levoxyl) 75 MCG tabletIndications :Other specified hypothyroidism TAKE 1 TABLET BY MOUTH IN THE MORNING 90 tablet 025 Active senna-docusate (Senokot S) 8.6-50 MG tabletIndications :Constipation, unspecified constipation type Take 1 tablet by mouth Once per day. 30 tablet 11 025 2025 Active Tirzepatide-Weigh t Management (Zepbound) 5 MG/0.5ML solution auto-injectorIndi cations:Class 3 severe obesity due to excess calories with serious comorbidity and body mass index (BMI) of 45.0 to 49.9 in adult Inject 0.5 mL (5 mg) under the skin 1 (one) time per week. 2 mL 025 Active Cholecalciferol (Vitamin D) 50 MCG (1999 UT) capsuleIndication s:Vitamin D deficiency TAKE 1 CAPSULE BY MOUTH EVERY DAY 90 capsule 3 025 Active omeprazole (PriLOSEC) [address] capsuleIndication s:Gastroesophagea l reflux disease, unspecified whether esophagitis present TAKE 1 CAPSULE BY MOUTH EVERY DAY BEFORE BREAKFAST 90 capsule 025 Active Tirzepatide-Weigh t Management (Zepbound) 2.5 MG/0.5ML solution auto-injectorIndi cations:Class 3 severe obesity due to excess calories with serious comorbidity and body mass index (BMI) of 45.0 to 49.9 in adult Inject 0.5 mL (2.5 mg) under the skin 1 (one) time per week. ADMINISTER 2.5 MG UNDER THE SKIN 1 TIME EVERY WEEK 2 mL 025 Active Zepbound 2.5 MG/0.5ML solution auto-injectorIndi cations:Class 3 severe obesity due to excess calories with serious comorbidity and body mass index (BMI) of 45.0 to 49.9 in adult ADMINISTER 2.5 MG UNDER THE SKIN 1 TIME EVERY WEEK 2 mL 025 2024 Discontinued(R eojose luiser (will not trigger notification to Pharmacy)) Active Problems Problem Noted Date Diagnosed Date [...] It seems to be Poison [place] or [place] rash. We discuss about avoiding scratching, use [...] Encounters Date Type Department Care Team Description 11/05/2024 Refill [facility] [address] [place] [address] Olamide Chandler MD Class 3 severe obesity due to excess calories with serious comorbidity and body mass index (BMI) of 45.0 to 49.9 in adult 11/03/2024 Refill [facility] [address] [place] [address] Olamide Chandler MD Class 3 severe obesity due to excess calories with serious comorbidity and body mass index (BMI) of 45.0 to 49.9 in adult 10/19/2024 Orders Only [facility] [address] [place], [place] [phone] Maurisio Kaur MD 10/12/2024 Refill [facility] [address] [place], [place] [phone] Olamide Chandler MD Class 3 severe obesity due to excess calories with serious comorbidity and body mass index (BMI) of 45.0 to 49.9 in adult 10/10/2024 Refill [facility] [address] [place] [address] Violette tSoll MD Gastroesophageal reflux disease, unspecified whether esophagitis present 10/04/2024 Orders Only [facility] [address] [place] [address] Olamide Chandler MD 09/20/2024 Orders Only [facility] [address] [place] [address] Olamide Chandler MD Class 3 severe obesity due to excess calories with serious comorbidity and body mass index (BMI) of 45.0 to 49.9 in adult (Primary Dx) 09/20/2024 Telephone [facility] [address] [place] [address] Olamide Chandler MD Nurse Triage 09/20/2024 Orders Only GENERIC EXTERNAL DATA DEPARTMENT Provider, Generic External Data 09/20/2024 Refill [facility] [address] [place] [address] Olamide Chandler MD Vitamin D deficiency 09/19/2024 Telephone [facility] [address] [place] [phone] Olamide Chandler MD Nurse Triage 09/03/2024 Telephone [facility] [address] [place] [phone] Olamide Chandler MD Results 08/30/2024 9:00 AM EDT Telemedicine [facility] [address] [place] [phone] Olamide Chandler MD Constipation, unspecified constipation type (Primary Dx); Hair loss; Class 3 severe obesity due to excess calories with serious comorbidity and body mass index (BMI) of 45.0 to 49.9 in adult ([facility]); Chronic fatigue 08/30/2024 Travel 08/23/2024 Refill [facility] [address] [place] [phone] Olamide Chandler MD Other specified hypothyroidism 08/22/2024 Refill [facility] [address] [place], [place] [phone] Olamide Chandler MD Seasonal allergies from Last 3 Months Immunizations Immunization Administration Dates Next Due DTP 09/10/1983, 0,08/05/1978,1977,01/28/1978 [...] Care Team (Late st Contact Info) Description 01/18/2025 11:30 AM EDT Office Visit [facility] [address] [place] [address] Olamide Chandler MD [address] [place] [address] Health Maintenance Due Date Last Done Comments CT Colonography 1971 FIT DNA/Cologuard 1971 FIT 1971 FOBT 1971 HIV Screening 1970 Sigmoidoscopy 1971 Disability Screening 1971 Alcohol/Substance Use Screening 1983 Hepatitis C Screening 10/21/1989 COVID-19 Vaccine ( season) 2024 10/28/2023, 06/22/2021, 09/10/2020, Additional history exists SDOH Screening 08/05/2024 08/05/2023 Depression Screening 03/12/2025 03/12/2024, 03/12/20 Diabetes: Hemoglobin A1C 03/29/2025 024, 08/18/2023, 04/26/2023, Additional history exists Tobacco Screening 06/08/2025 06/08/2024 Mammogram 10/04/2025 10/04/2024, 08/19, 09/09/2022, Additional history exists Colonoscopy 04/12/2027 04/12/2022 Colorectal Cancer Screening 04/12/2027 Cervical Cancer Screening 10/30/2027 HPV/Cotest 10/30/2027 10/29/2022, 10/18, 01/28/2017 Pap Smear 10/30/2027 10/29/2022, 10/18, 10/29/2022 Lipid Panel 03/29/2029 03/29/2024, 1112/2022, 08/02/2022, Additional history exists DTaP/Tdap/Td Vaccines (9 [...] Procedure Name Priority Date/Time Associated Diagnosis Comments BI MAMMOGRAM SCREENING TOMOSYNTHESIS BILATERAL Routine 10/04/2024 9:30 AM EDT SARS COV2/INFLUENZA A/B AND RSV RNA QL [...] Routine 08/31/2024 9:00 AM EDT Hair loss HEMOGLOBIN A1C Routine 03/29/2024 9:50 AM EDT Essential hypertension LIPID PANEL WITH REFLEX TO DIRECT LDL Routine 03/29/2024 9:50 AM EDT Essential hypertension IMAGE-GUIDED PAP W/AGE BASED SCR,W/CT/NG/TRICH Routine 10/29/2022 11:29 AM EDT Encounter for Papanicolaou smear for cervical cancer screening HM COLONOSCOPY Routine 04/12/2022 10:07 PM EDT from Last 3 Months or Most Recently Relevant to Health Maintenance Results * BI Mammogram Screening Tomosynthesis Bilateral (10/04/2024 9:30 AM EDT) Anatomical Region Laterality Modality Breast Bilateral Mammography 10/04/2024 9:30 AM EDT Narrative 10/13/2024 3:00 PM EDT ? [facility] ? [address] ?[place] [address] ?[phone] ? Mammography Report ? Signed ? Patient: Laisha Ye I ?MR#: M ?? [id number] ? : 1970 ?Acct:[id number] ? Age/Sex: 53 / F ?ADM Date: 04/17/25 ? Loc: HO.MAMMO ? Attending Dr: Olamide Stevens MD ? Ordering Physician: Olamide Chandler MD ?Results: 0Incomplete: Needs Additional Imaging ?? Evaluation ? Date of Service: 10/04/24 ?Follow Up: Additional Imagi ?? ng ? Procedure(s): MM tomosynthesis screening BI ?? Accession Number(s): [id number] ? cc: Olamide Chandler MD ? EXAMINATION: ?? MM SCREENING DIGITAL BREAST TOMOSYNTHESIS, BILATERAL ? CLINICAL INFORMATION: ? Screening. Asymptomatic. ? COMPARISON: ?? Mammography: Comparison is made with available priors ? TECHNIQUE: ?? Digital breast mammography with tomosynthesis is performed in both the ?? craniocaudal and mediolateral oblique views along with computer-aided ?? detection (CAD). ? FINDINGS: ?? There are scattered areas of fibroglandular density (ACR BI-RADS breast ?? composition Category b). ?? Left: ?? Focal asymmetry upper outer breast anterior depth. ?? No suspicious calcifications or other abnormal findings. ? Right: ?? There are no significant masses, abnormal calcifications, or other ?? abnormalities. ? MM/MM tomosynthesis screening BI ?? IMPRESSION: ?? Additional imaging is recommended ? ASSESSMENT: ? BI-RADS BI-RADS 0 - Incomplete: Needs additional Imaging. ? RECOMMENDATION: ?? 1. Additional views of the left breast. ?? 2. Targeted ultrasound if warranted after review of the additional ?? views. ?? 3. Radiology department staff will contact the patient for additional ?? imaging. ? Additional Imaging required ? This examination should not preclude the clinical evaluation of a ?? suspicious palpable abnormality. ? This patient's information was entered into a reminder system with a ?? target due date for their next mammogram. ? Electronically signed by: ??Deana Shafer DO ??10/13/2024 02:57 PM EDT ? Dictated By: ?Deana Shafer DO ? Signed By: ?<Electronically signed by Deana Shafer, DO in OV> ? 10/13/241456 ? DD/ ? TD/TT: 10/04/24 0950 ? Promotional Marketing Agent: ? Procedure Note Donotuseinterpreter, Image - 10/13/2024 [facility] [address] [place] [address] Mammography Report Signed Patient: Laisha Ye IMR#: [id number] : 1970Acct:[id number] Age/Sex: 53 / FADM Date: 10/04/24 Loc: HO.MAMMO Attending Dr: Olamide Stevens MD Ordering Physician: Olamide Chandler MD Results: 0Incomplete: Needs Additional Imaging Evaluation Date of Service: 10/04/24Follow Up: Additional Imagi ng Procedure(s): MM tomosynthesis screening BI Accession Number(s): [id number] cc: Olamide Chandler MD EXAMINATION: MM SCREENING DIGITAL BREAST TOMOSYNTHESIS, BILATERAL CLINICAL INFORMATION: Screening. Asymptomatic. COMPARISON: Mammography: Comparison is made with available priors TECHNIQUE: Digital breast mammography with tomosynthesis is performed in both the craniocaudal and mediolateral oblique views along with computer-aided detection (CAD). FINDINGS: There are scattered areas of fibroglandular density (ACR BI-RADS breast composition Category b). Left: Focal asymmetry upper outer breast anterior depth. No suspicious calcifications or other abnormal findings. Right: There are no significant masses, abnormal calcifications, or other abnormalities. MM/MM tomosynthesis screening BI IMPRESSION: Additional imaging is recommended ASSESSMENT: BI-RADS BI-RADS 0 - Incomplete: Needs additional Imaging. RECOMMENDATION: 1. Additional views of the left breast. 2. Targeted ultrasound if warranted after review of the additional views. 3. Radiology department staff will contact the patient for additional imaging. Additional Imaging required This examination should not preclude the clinical evaluation of a suspicious palpable abnormality. This patient's information was entered into a reminder system with a target due date for their next mammogram. Electronically signed by: Deana Shafer DO 10/13/2024 02:57 PM EDT Dictated By: Deana Shafer DO Signed By: <Electronically signed by Deana Shafer DO in OV> 10/13/24 1457 DD/ 0930 TD/TT: 10/04/24 0950 Promotional Marketing Agent: Olamide Stevens MD IMG BI PROCEDURES Harish johanna Result - Final * SARS-CoV-2 RNA, Influenza A/B, and RSV RNA, Ql NAAT (09/20/2024 8:39 AM EDT) Influenza A PCR NEGATIVE Negative [facility] Influenza B PCR NEGATIVE Negative [facility] Resp Syncy Virus RNA Qual PCR NEGATIVE Negative [facility] SARS COV2 PCR NEGATIVE Negative [facility] Comment:All test results mus t [...] use by authorized laboratories.Testing performed on the [employer] GeneXpert utilizingreal-time RT-PCR.All SARS CoV2 and positive influenza A/B results arereported to [facility]. 09/20/2024 8:39 AM EDT 09/20/2024 8:42 AM EDT us Generic External Data Provider LAB MICROBIOLOGY - GENERAL ORDERABLES Final Result [facility] [address] [place] [address] [phone] * CDiff Gene PCR (09/20/2024 8:32 AM EDT) CDiff Gene PCR NEGATIVE Negative [facility] Comment:If C. difficile stro ngly suspected despite one negativetest, a second test may be sent vs. empiric treatment forC. difficile infection. 09/20/2024 8:32 AM EDT 09/20/2024 8:38 AM EDT us Generic External Data Provider LAB BODY FLUIDS A ND STOOLS ORDERABLES Final Result [facility] [address] [place] [address] [phone] * Gastrointestinal panel (09/20/2024 8:32 AM EDT) Pathologist [facility] Campylobacter Not Detected Not Detect. [facility] Plesiomonas shigelloides Not Detected Not Detect. [facility] Salmonella Not Detected Not Detect. [facility] Vibrio Not Detected Not Detect. [facility] Vibrio cholerae Not Detected Not Detect. [facility] YERSINIA ENTEROCOLITICA Not Detected Not Detect. [facility] Enteroaggregative E. coli (EAEC) Not Detected Not Detect. [facility] Enteropathogenic E. coli (EPEC) Not Detected Not Detect. [facility] Enterotoxigenic E. coli (ETEC) lt/st Not Detected Not Detect. [facility] Shiga-like toxin-producing E. coli (STEC) stx1/stx2 Not Detected Not Detect. [facility] E coli O157 Not applicable Not Detect. [facility] Comment:E. coli containing t he O157 antigen are a subset ofShiga-like toxin- producing E. coli (STEC). Shigella/Enteroinvasive E. coli (EIEC) Not Detected Not Detect. [facility] Cryptosporidium Not Detected Not Detect. [facility] Cyclospora cayetanensis Not Detected Not Detect. [facility] Entamoeba histolytica Not Detected Not Detect. [facility] Giardia lamblia Not Detected Not Detect. [facility] Adenovirus F 40/41 Not Detected Not Detect. [facility] Astrovirus Not Detected Not Detect. [facility] Norovirus GI/GII Not Detected Not Detect. [facility] Rotavirus A Not Detected Not Detect. [facility] Sapovirus Not Detected Not Detect. [facility] Comment: All results must be correlated [...] assay is performed by Multiplexed PCR, utilizing [employer]. 09/20/2024 8:32 AM EDT 09/20/2024 8:38 AM EDT us Generic External Data Provider LAB MICROBIOLOGY - GENERAL ORDERABLES Final Result [facility] [address] [place] [phone] * Urinalysis, Complete, with Reflex to Culture (09/20/2024 6:37 AM EDT) Color Urine Yellow [facility] Appearance Urine Clear [facility] PH 6.0 5.0 - 9.0 [facility] Glucose Urine UA Negative Negative mg/dL [facility] Urine Blood Trace Negative [facility] Specific [place] - Urine 1.020 1.005 - 1.025 [facility] Urine Protein Negative Neg-Trace mg/dL [facility] Urine Ketones Negative Negative mg/dL [facility] Nitrite Urine Negative Negative [facility] Leukocyte Esterase Urine Negative Negative [facility] Urine Bacteria None Seen None Seen [facility] Hyaline Casts, Urine 0-2 0 - 2 /LPF [facility] 09/20/2024 6:37 AM EDT 09/20/2024 6:42 AM EDT Narrative [facility] - 09/20/2024 6:49 AM EDT [id number], [employer] us Generic External Data Provider LAB URINE ORDERAB LES Final Result [facility] [address] [place] [address] [phone] * (ABNORMAL) CBC auto differential (09/20/2024 6:19 AM EDT) Only the most recent of2 resultswithin the time period is included. White Blood Count 7.9 4.8 - 10.8 X10*3/uL [facility] Red Blood Count 4.57 4.20 - 5.50 X10*6/uL [facility] Hemoglobin 13.2 12.0 - 16.0 g/dl [facility] Hematocrit 39.2 37.0 - 47.0 % [facility] Mean Corpuscular Volume 85.8 80.0 - 98.0 fL [facility] Mean Corpuscular Hemoglobin 28.9 27.0 - 33.0 pg [facility] Mean Corpuscular HGB Conc 33.7 31.0 - 35.0 g/dl [facility] Red Cell Distribution Width 12.4 11.0 - 16.0 % [facility] Platelet Count 326 160 - 400 X10*3/uL [facility] Mean Platelet Volume 9.1(L) 9.4 - 12.3 fL [facility] Neutrophils Percent Auto 70.1 45 - 73 % [facility] Imm Gran Pct Auto 0.4 0.0 - 0.4 % [facility] Lymphocytes Percent Auto 18.9(L) 20 - 40 % [facility] Monocytes Percent Auto 8.7 2 - 11 % [facility] Eosinophils Percent Auto 1.4 0 - 4 % [facility] Basophils Percent Auto 0.5 0 - 2 % [facility] NRBC Pct Auto 0.0 0.0 - 0.2 /100WBC [facility] Neutrophils Absolute Auto 5.6 2.0 - 8.3 x10*3/uL [facility] Imm Gran Abs Auto 0.03 0.00 - 0.03 X10*3/uL [facility] Lymphocytes Absolute Auto 1.5 1.2 - 4.9 X10*3/uL [facility] Monocytes Absolute Auto 0.7 0.1 - 1.2 X10*3/uL [facility] Eosinophils Absolute Auto 0.1 0.0 - 0.4 X10*3/uL [facility] Basophils Absolute Auto 0.0 0.0 - 0.2 X10*3/uL [facility] NRBC Abs Auto 0.000 0.0 - 0.012 X10*3/uL [facility] 09/20/2024 6:19 AM EDT 09/20/2024 6:22 AM EDT us Generic External Data Provider LAB BLOOD ORDERAB LES Final Result [facility] [address] [place] [phone] * Magnesium (09/20/2024 6:19 AM EDT) Magnesium 2.0 1.6 - 2.6 mg/dL [facility] 09/20/2024 6:19 AM EDT 09/20/2024 6:22 AM EDT Generic External Data Provider LAB BLOOD ORDERAB LES Final Result Performing Organization Address City/[facility]/ZIP Co de Phone Number [facility] [address] [place] [phone] * Lipase (09/20/2024 6:19 AM EDT) Lipase 27 8 - 78 U/L [facility] 09/20/2024 6:19 AM EDT 09/20/2024 6:22 AM EDT Generic External Data Provider LAB BLOOD ORDERAB LES Final Result Performing Organization Address [facility] de Phone Number [facility] [address] [place] [address] [phone] * (ABNORMAL) Comprehensive Metabolic Panel (09/20/2024 6:19 AM EDT) Only the most recent of2 resultswithin the time period is included. Pathologist [facility] Sodium 139 135 - 145 mmol/L [facility] Potassium 3.9 3.3 - 5.1 mmol/L [facility] Chloride 109(H) 96 - 108 mmol/L [facility] Carbon Dioxide 23 22 - 29 mmol/L [facility] Anion Gap 11(L) 12 - 20 [facility] Urea Nitrogen (BUN) 9 9 - 16 mg/dL [facility] Creatinine, Serum 0.76 0.5 - 1.4 mg/dL [facility] Creatinine Clr Calc Pharmacy 92.0 [facility] Comment:Provided height and weight: 154.94 cm,96.615 kg.eGFR (calculated from the MDRD study equation) and eCrCl(calculated from the Cockcroft-Gault equation) are based ondifferent parameters and may not yield comparable results.If eCrCl result is absurd, please check patient'sheight/weight. Estimated Glomerular Filt Rate >60 [facility] Comment:Chronic Kidney Disea se: Estimated GFR < 60 mL/min/1.99k1Pzhcca Kidney Disease: Estimated GFR < 15 mL/min/1.73m2 Glucose 114 60 - 115 mg/dL [facility] Calcium 9.0 8.4 - 10.2 mg/dL [facility] Bilirubin, Total 0.6 0.0 - 1.0 mg/dL [facility] Aspartate Amino Transferase 18 5 - 31 U/L [facility] Alanine Aminotransferase 9 0 - 31 U/L [facility] Total Protein 7.5 6.5 - 8.0 g/dL [facility] Albumin Level 3.9 3.5 - 5.0 g/dL [facility] Alkaline Phosphatase 73 39 - 117 U/L [facility] 09/20/2024 6:19 AM EDT 09/20/2024 6:22 AM EDT us Generic External Data Provider LAB BLOOD ORDERAB LES Final Result [facility] [address] [place] [address] [phone] * Vitamin D, 25-Hydroxy, Total, Immunoassay (08/31/2024 9:00 AM EDT) Vitamin D 25-OH Total 45.4 >30 ng/mL [facility] Comment: Health Based Reference Values*< 20 ??ng/mL ??Vbfeqpmvx14-33 ng/mL ??Insufficient> 30 ??ng/mL ??Sufficient*Maddie SORENSON. N [...] BLOOD ORDERABLES Final Result Performing Organization Address [facility] Co de Phone Number [facility] [address] [place] [phone] * Vitamin B12/Folate, Serum Panel (08/31/2024 9:00 AM EDT) Vitamin B12 593 200 - 900 pg/mL [facility] Comment:NORMAL 200-900 PG/ML INDETERMINATE 160-199 PG/ML DEFICIENT < 160 PG/ML Folate 12.5 > or = 4.0 ng/mL [facility] Comment:Reference Values:> o r = 4.0 [...] BLOOD ORDERABLES Final Result Performing Organization Address [facility] Co de Phone Number [facility] [address] [place] [phone] * (ABNORMAL) Lipid Panel with Reflex to Direct LDL (03/29/2024 9:50 AM EDT) Triglycerides 89 <150 mg/dL [facility] Comment:Desirable Triglyceri de: less than 150 mg/dLBorderline High Triglyceride 150-199 mg/dLHigh Triglyceride: 200-499 mg/dLVery High Triglyceride: greater than or equal to 5OO mg/dL Cholesterol 168 <200 mg/dL [facility] Comment:Desirable Cholestero l: less than 200 mg/dLBorderline High Cholesterol: 200-239 mg/dLHigh Cholesterol: greater than 239 mg/dL LDL Cholesterol Calculated 107(H) <100 mg/dL [facility] Comment:Desirable LDL: less than 100 mg/dLNear Optimal/Above Optimal LDL: 110- 129 mg/dLBorderline High LDL: 130-159 mg/dLHigh LDL: 160-189 mg/dLVery High LDL: greater than or equal to 190 mg/dL HDL Cholesterol 44 >40 mg/dL [facility] Comment:Desirable HDL: great er than 40 mg/dL Note: This HDL assay may give artificially low results in patients with liver disease. Blood 03/29/2024 9:50 AM EDT 03/29/2024 11:08 AM EDT Olamide Stevens MD LAB BLOOD ORDERABLES Final Result [facility] [address] [place] [phone] * Hemoglobin A1c (03/29/2024 9:50 AM [...] patient sample. Estimated Average Glucose 126 mg/dL [facility] Comment:eAG = Estimated ave rage glucose which is %A1C expressed asaverage glucose, using the formula of the G8S-QthzxybTneephh Glucose study (ADAG), Diabetes Care, Vol.31,#8,Jan. 2007 Blood Venous blood specimen / Unknown 03/29/2024 9:50 AM EDT 03/29/2024 11:08 AM EDT us Olamide Stevens MD LAB BLOOD ORDERABLES Final Result [facility] [address] [place] [phone] * Image-Guided Pap with Age-Based Screening??with CT/NG,??Trichomonas (10/29/2022 11:29 AM EDT) Comment [facility] [place] [employer] Comment: This order for age-based cervical cancer and STI screening follows ACOG guidelines(PB 168, 140, XPU101). See individual assays for performing site location. Clinical Information: 52 Y/O F NO PREVIOUS ABNORMALITY C [place] LMP: NONE GIVEN [facility] [place] [facility] Prev. PAP: NONE GIVEN [facility] Prev. BX: NONE GIVEN [place] SOURCE: None given [employer] Statement Of Adequacy: [facility] [place] [employer] Comment: Satisfactory for evaluation. Endocervical/transformation zone component absent. Interpretation/Re sult: Negative for intraepithelial lesion or malignancy. [facility] [place] [employer] COMMENT: This Pap test has been evaluated with computer assisted technology. [employer] [place] [employer] Driver: Amalia [employer] [place] [facility] Comment: EXJ, CT(ASCP) CT Screening Location: [address] [phone] (Always Message) [facility] Comment: EXPLANATORY NOTE: The Pap is a [...] HPV nRNA E6/E7 Not Detected Not Detected [employer] Comment: Methodology: Ladle Operator-Mediated Amplification This assay detects E6/E7 viral messenger RNA (mRNA) from 14 high-risk HPV types (16,18,31,33,35,39,45,51,52,56,58,59,66,68). Cervical sources are required for HPV testing. If a vaginal source from a patient who has had a total hysterectomy with removal of cervix was submitted, please contact the testing laboratory for alternative testing options. For additional information, please refer to http://[employer]ora[employer].wuaki.tv/faq/JUS607i0 (This link if provided for information/ educational purposes only.) Chlamydia trachomatis RNA, TMA, Urogenital NOT DETECTED NOT DETECTED [employer] Neisseria gonorrhoeae RNA, TMA, Urogenital NOT DETECTED NOT DETECTED [employer] (Always Message) [employer] Comment: The analytical performance characteristics of this assay, when used to test SurePath(TM) specimens have been determined by [facility]. The modifications have not been cleared or approved by the FDA. This assay has been validated pursuant to the CLIA regulations and is used for clinical purposes. For additional information, please refer to https://[employer].wuaki.tv/faq/PZS772 (This link is being provided for information/ educational purposes only.) Trichomonas vaginalis, QL, TMA, PAP Vial NOT DETECTED NOT DETECTED [employer] Comment: The analytical performance characteristics of this assay have been determined by [facility]. The modifications have not been cleared or approved by the FDA. This assay has been validated pursuant to the CLIA regulations and is used for clinical purposes. For additional information, please refer to http://[employer]ora[employer].wuaki.tv/ faq/Trichomonastma (This link is being provided for information/ educational purposes only.) Pap Vial 10/29/2022 11:2 9 AM EDT 10/31/2022 4:55 PM EDT Olamide Stevens MD LAB CYTOLOGY ORDERABL ES Final Result [facility] [address], [place] [address] [facility] [place] [facility] [address] [place] [address] * Hm Colonoscopy (04/12/2022 10:07 PM EDT) us Historical Provider HEALTH MAINTENANCE Final Result from Last 3 Months or Most Recently Relevant to Health Maintenance Insurance [facility] ONE CARE < 65 [place] [id number] Care Teams Customer Engagement Analyst Relationship Specialty Start Date End Date Olamide Chandler MD [address] [place] [phone] PCP - General Family Medicine 07/28/20
== END 2024-11-14 10:11 | disposition home or self-care (01) ==
LOC: HO.MAMMO 10:10
PROVIDERS: PCP Internal Medicine; Visit Provider Internal Medicine
DX: N64.89 Other specified disorders of breast (principal)
CPT/HCPCS: 76642; 77061; 77065

== ENCOUNTER → 2024-11-14 10:30 | Outpatient (BNV) | payer OTHER, SELFPAY | PROVIDERS: PCP Internal Medicine; Visit Provider Internal Medicine | DX: D24.2 Benign neoplasm of left breast (principal); N63.21 Unspecified lump in the left breast, upper outer quadrant | CPT/HCPCS: 76642; 77065; G0279 ==

== ENCOUNTER 2025-01-02 11:30 | Outpatient (REF) | payer OTHER, SELFPAY ==
[2025-01-02 14:27] LABS: Anion Gap 11 (12-20); Blood Urea Nitrogen 9 mg/dL (9-16); Calcium 9.3 mg/dL (8.4-10.2); Carbon Dioxide 27 mmol/L (22-29); Chloride 104 mmol/L (96-108); Estimated Glomerular Filt Rate > 60; Potassium 3.9 mmol/L (3.3-5.1); Sodium 138 mmol/L (135-145)
== END 2025-01-02 11:31 | disposition home or self-care (01) ==
LOC: HO.HHCL 11:30
PROVIDERS: PCP Internal Medicine; Visit Provider Internal Medicine
DX: I10 Essential (primary) hypertension (principal); E03.9 Hypothyroidism, unspecified
CPT/HCPCS: 36415; 80048; 84443

== ENCOUNTER 2025-01-11 10:45 | Emergency (ER) | payer OTHER, SELFPAY ==
[2025-01-11 10:48] VITALS: BP 157/90; PULSE 81; RESP 18; TEMP 36.6; O2SAT 100; BMI 35.9
--- NOTE | 2025-01-11 10:56 | ECG_ITS ---
Test Reason : headache Blood Pressure : */* mmHG Vent. Rate : 77 BPM Atrial Rate : 77 BPM P-R Int : 148 ms QRS Dur : 80 ms QT Int : 384 ms P-R-T Axes : 39 -10 -21 degrees QTcB Int : 434 ms Normal sinus rhythm Possible Anterior infarct (cited on or before 17-Apr-2023) Abnormal ECG When compared with ECG of 17-Apr-2023 00:22, No significant change was found Referred By: Generic ED Physician Electronically Signed By: Charly Briscoe
[2025-01-11 11:25] LABS: MANUAL DIFF FLAG NO
[2025-01-11 11:26] LABS: Hematocrit 41.0 % (37.0-47.0); Hemoglobin 13.6 g/dl (12.0-16.0); Imm Gran Abs Auto 0.03 X10*3/uL (0.00-0.03); Imm Gran Pct Auto 0.3 % (0.0-0.4); Lymphocytes Absolute Auto 1.3 X10*3/uL (1.2-4.9); Mean Corpuscular HGB Conc 33.2 g/dl (31.0-35.0); Mean Corpuscular Hemoglobin 29.1 pg (27.0-33.0); Mean Corpuscular Volume 87.8 fL (80.0-98.0); NRBC Abs Auto 0.000 X10*3/uL (0.0-0.012); NRBC Pct Auto 0.0 /100WBC (0.0-0.2); Platelet Count 310 X10*3/uL (160-400); Red Blood Count 4.67 X10*6/uL (4.20-5.50); White Blood Count 10.0 X10*3/uL (4.8-10.8)
[2025-01-11 11:45] LABS: Alanine Aminotransferase 17 U/L (0-31); Albumin Level 4.2 g/dL (3.5-5.0); Alkaline Phosphatase 73 U/L (39-117); Anion Gap 10 (12-20); Aspartate Amino Transferase 24 U/L (5-31); Blood Urea Nitrogen 15 mg/dL (9-16); Calcium 9.5 mg/dL (8.4-10.2); Carbon Dioxide 30 mmol/L (22-29); Chloride 104 mmol/L (96-108); Creatinine Clr Calc Pharmacy 82.0; Estimated Glomerular Filt Rate > 60; Magnesium 2.2 mg/dL (1.6-2.6); Potassium 4.1 mmol/L (3.3-5.1); Sodium 140 mmol/L (135-145); Total Protein 7.8 g/dL (6.5-8.0)
[2025-01-11 11:53] LABS: Troponin-I High Sensitivity < 2.7 ng/L (<3.5-17.0)
[2025-01-11 12:08] LABS: Resp Syncy Virus RNA Qual PCR NEGATIVE (Negative); SARS COV2 PCR INHOUSE NEGATIVE (Negative)
--- OUTSIDE RECORDS SUMMARY | 2025-01-11 13:25 | XMS_ITS | Clinical Summary ---
Author Organization [facility] ity Address [address] [place] [address] Care Team Providers Care Copy Reader Name Role Phone Unavailable Primary Care Provider [...] 2) 10/21/2021 Colorectal Cancer Screening: Colonoscopy 08/26/2023 HIV Screening 08/26/2023 Hepatitis C Screening 08/26/2023 Social Influencers of Health Screening 08/26/2023 COVID-19 Vaccine (1 - 2023-2 5 season) 2024 Depression Screening 06/20/2024 Influenza Vaccine (#1) 2025 HIB Vaccines Aged Out No longer [...]
--- OUTSIDE RECORDS SUMMARY | 2025-01-11 13:25 | XMS_ITS | Data Portability ---
Author Organization [employer], [facility] Address [address] [place] [address] Care Team Providers Care Sharepoint Web Developer Name Role Phone [facility] Referring Provider HIM CCA OTHER Assessment Encounter Date Assessment Date Assessment LastModified by Organization Details LastModified Time 01/28/2023 01/28/2023 I have reviewed and agree with the assessment and plan as documented by the chemical equipment sales engineer. I provided real time medical direction for this encounter and was immediately available to provide additional phone based assistance as needed. History as noted by chemical equipment sales engineer. Pt with history of OA of the knees but over the last few months she has noted pain in multiple other joints particularly her shoulders and neck. No falls or trauma. No fevers or chills or know tick exposures. She reports that she saw her quality control director several months ago and that they were ruling out fibromyalgia . Pt reports the joint pain has worsened recently. On exam, pt appears comfortable, vitals ok. Joints appear normal, no swelling, erythema or warmth noted. Impression: Pt with arthralgias for several months worsening recently with no recent trauma or fevers. No known tick exposures. On exam, joints appear normal, no evidence of acute inflammatory process. Labs are obtained and sent to [facility] labs for CBC w/diff, ESR, CRP and Lyme Ab with reflex western blot. Pt is prescribed diclofenac gel to apply to her painful joints tid prn and is instructed to also use tylenol tid for pain as well. Primary care team needs to follow up with the pt after the weekend to ensure she is feeling improved and needs to check the results of the labs sent to the [facility] lab today. Pt instructed to seek medical attention right away with any worsening or new symptoms, which are reviewed with her. btils Not available 01/28/2023 15:58:43 Plan of Treatment Reminders Order Date Submit Date Provider Last Modified By Organization Details Last Modified Time Details Appointments None recorded. Lab BMP, serum or plasma 2024 025 [facility] [address] [place] [address], [id number] 5 08:19:04 CBC w/ auto diff 2022 023 [facility] (Centralized Electronic Ordering - All Locations), Patient Can Go To The Location Of Their Choice, [facility] 3 01:41:38 ESR (erythrocyt e sedimentati on rate), blood 2022 023 [facility] (Centralized Electronic Ordering - All Locations), Patient Can Go To The Location Of Their Choice, [facility] 3 01:48:53 C-reactive protein, quantitativ e, serum or plasma 2022 023 [facility] (Centralized Electronic Ordering - All Locations), Patient Can Go To The Location Of Their Choice, [facility] 3 02:16:13 unlisted lab - lyme disease antibody w/reflex west blot 2022 023 [facility] Patient Can Go To The Location Of Their Choice, [facility] 3 09:18:28 Referral None recorded. Procedures None recorded. Surgeries None recorded. Imaging None recorded. Medication Orders lactated Ringers intravenous solution 2024 025 [id number], [address] [place] [address], [id number], 5 18:05:45 potassium chloride ER 20 mEq tablet,exte nded release 2024 025 [id number], [address] [place] [address], [id number], 5 18:05:45 diclofenac 1 % topical gel 2022 023 [id number], [address] [place] [address], [id number], 15:52:21 Patient TargetsNo targets recorded. Patient InstructionsNo instructions recorded. Reason for Referral None Reported. Results Created Date Observation Date Name Description Value Unit Range Abnormal Flag Note LastModifiedBy Organization Detail LastModifiedTime 01/29/2001/29/2023 COMPL ETE CBC WITH DIFF WBC 8.0 K/mm3 (4.0-1 1.0) Not Available [facility] (Centralized Electronic Ordering - All Locations) Patient Can Go To The Location Of Their Choice, 01/29/2023 01:41:38 01/29/2001/29/2023 COMPL ETE CBC WITH DIFF RBC 4.21 M/mm3 (4.20- 5.40) Not Available [facility] (Centralized Electronic Ordering - All Locations) Patient Can Go To The Location Of Their Choice, 01/29/2023 01:41:38 01/29/2001/29/2023 COMPL ETE CBC WITH DIFF HGB 11.9 gm/dL (11.7- 15.5) Not Available [facility] (Centralized Electronic Ordering - All Locations) Patient Can Go To The Location Of Their Choice, 01/29/2023 01:41:38 01/29/2001/29/2023 COMPL ETE CBC WITH DIFF HCT 37.9 % (35.7- 45.8) Not Available [facility] (Centralized Electronic Ordering - All Locations) Patient Can Go To The Location Of Their Choice, 01/29/2023 01:41:38 01/29/2001/29/2023 COMPL ETE CBC WITH DIFF MCV 90.0 fL (80.0- 100.0) Not Available [facility] (Centralized Electronic Ordering - All Locations) Patient Can Go To The Location Of Their Choice, 01/29/2023 01:41:38 01/29/2001/29/2023 COMPL ETE CBC WITH DIFF MCH 28.3 pg (27.0- 34.0) Not Available [facility] (Centralized Electronic Ordering - All Locations) Patient Can Go To The Location Of Their Choice, 01/29/2023 01:41:38 01/29/2001/29/2023 COMPL ETE CBC WITH DIFF MCHC 31.4 g/dL (33.0- 37.0) low Not Available [facility] (Centralized Electronic Ordering - All Locations) Patient Can Go To The Location Of Their Choice, 01/29/2023 01:41:38 01/29/2001/29/2023 COMPL ETE CBC WITH DIFF plt 390 K/mm3 (150-4 60) Not Available [facility] (Centralized Electronic Ordering - All Locations) Patient Can Go To The Location Of Their Choice, 01/29/2023 01:41:38 01/29/2001/29/2023 COMPL ETE CBC WITH DIFF RDW-SD 41.6 fL (<47.0 ) Not Available [facility] (Centralized Electronic Ordering - All Locations) Patient Can Go To The Location Of Their Choice, 01/29/2023 01:41:38 01/29/2001/29/2023 COMPL ETE CBC WITH DIFF MPV 9.5 fL (9.4-1 2.4) Not Available [facility] (Centralized Electronic Ordering - All Locations) Patient Can Go To The Location Of Their Choice, 01/29/2023 01:41:38 01/29/2001/29/2023 COMPL ETE CBC WITH DIFF automated NRBC 0.0 #/100 _WBC' s Not Available [facility] (Centralized Electronic Ordering - All Locations) Patient Can Go To The Location Of Their Choice, 01/29/2023 01:41:38 01/29/2001/29/2023 COMPL ETE CBC WITH DIFF abs. NRBC 0.0 K/mm3 Not Available [facility] (Centralized Electronic Ordering - All Locations) Patient Can Go To The Location Of Their Choice, 01/29/2023 01:41:38 01/29/2001/29/2023 COMPL ETE CBC WITH DIFF neut # 4.8 K/mm3 (1.3-7 .0) Not Available [facility] (Centralized Electronic Ordering - All Locations) Patient Can Go To The Location Of Their Choice, 01/29/2023 01:41:38 01/29/2001/29/2023 COMPL ETE CBC WITH DIFF lymph # 2.5 K/mm3 (0.8-3 .1) Not Available [facility] (Centralized Electronic Ordering - All Locations) Patient Can Go To The Location Of Their Choice, 01/29/2023 01:41:38 01/29/2001/29/2023 COMPL ETE CBC WITH DIFF mono# 0.6 K/mm3 (0.4-0 .9) Not Available [facility] (Centralized Electronic Ordering - All Locations) Patient Can Go To The Location Of Their Choice, 01/29/2023 01:41:38 01/29/2001/29/2023 COMPL ETE CBC WITH DIFF eo # 0.1 K/mm3 (0.0-0 .4) Not Available [facility] (Centralized Electronic Ordering - All Locations) Patient Can Go To The Location Of Their Choice, 01/29/2023 01:41:38 01/29/2001/29/2023 COMPL ETE CBC WITH DIFF baso # 0.1 K/mm3 (0.0-0 .1) Not Available [facility] (Centralized Electronic Ordering - All Locations) Patient Can Go To The Location Of Their Choice, 01/29/2023 01:41:38 01/29/2001/29/2023 COMPL ETE CBC WITH DIFF abs. imm gran 0.0 K/mm3 Not Available [facility] (Centralized [facility] Ordering - All Locations) Patient Can Go To The Location Of Their Choice, 01/29/2023 01:41:38 01/29/2001/29/2023 COMPL ETE CBC WITH DIFF neut 60.0 % (44-76 ) Not Available [facility] (Centralized Electronic Ordering - All Locations) Patient Can Go To The Location Of Their Choice, 01/29/2023 01:41:38 01/29/2001/29/2023 COMPL ETE CBC WITH DIFF lymph 30.8 % (15-43 ) Not Available [facility] (Centralized Electronic Ordering - All Locations) Patient Can Go To The Location Of Their Choice, 01/29/2023 01:41:38 01/29/2001/29/2023 COMPL ETE CBC WITH DIFF monocyte 7.5 % (4.5-1 0.5) Not Available [facility] (Centralized Electronic Ordering - All Locations) Patient Can Go To The Location Of Their Choice, 01/29/2023 01:41:38 01/29/2001/29/2023 COMPL ETE CBC WITH DIFF eo 1.0 % (0-6) Not Available [facility] (Centralized Electronic Ordering - All Locations) Patient Can Go To The Location Of Their Choice, 01/29/2023 01:41:38 01/29/2001/29/2023 COMPL ETE CBC WITH DIFF baso 0.6 % (0-2) Not Available [facility] (Centralized Electronic Ordering - All Locations) Patient Can Go To The Location Of Their Choice, 01/29/2023 01:41:38 01/29/20 23 01/29/2023 COMPL ETE CBC WITH DIFF imm gran 0.1 % Not Available [facility] (Centralized Electronic Ordering - All Locations) Patient Can Go To The Location Of Their Choice, [id number] 01/29/2023 01:41:38 01/29/2001/29/2023 SEDIM ENTAT ION RATE, AUTOM ATED sedimentatio n rate,automat ed 47 mm/HR (0-20) high Not Available [facility] (Centralized [facility] Ordering - All Locations) Patient Can Go To The Location Of Their Choice, [id number] 01/29/2023 01:48:48 01/29/2001/29/2023 C-CYNDI CTIVE PROTE IN C-reactive protein 1.4 mg/dL (0-0.5 ) high Not Available [facility] (Centralized Electronic Ordering - All Locations) Patient Can Go To The Location Of Their Choice, [id number] 01/29/2023 02:16:13 01/29/2001/30/2023 LYME AB W/REF SANDY lyme Ab w/reflex (neg) NEGAT SHAHEEN NO ANTIB GIO TO BORRE LLIA BURGD ORFER I DETEC BRIAN. PATIE NTS IN EARLY STAGE S OF INFEC TION OR WHO WERE GIVEN EARLY ANTIB IOTIC TREAT MENT MAY NOT PRODU CE DETEC TABLE LEVEL S OF ANTIB GIO. THESE PATIE NTS WOULD BENEF IT FROM REPEA T TESTI NG IN 2 TO 4 WEEKS . Testi ng perfo rmed by the Bio-R ad Bio[facility] ex 2200 multi plex flow immun oassa y syste m Not Available [facility] (Centralized Electronic Ordering - All Locations) Patient Can Go To The Location Of Their Choice, [id number] 01/30/2023 09:18:28 Result Notes None recorded. Medical Equipment None Reported. Allergies Allergen ID Allergen Name Allergen Category Reaction Reaction Severity Criticality Documentation Date Start Date Code Code System Note Provider Name and Address Organization Details Recorded Time 13726 calcium medicatio n Not available Not available Not available 09/19/2024 1895 RxNorm Not Available [employer] - production 15:31:46 62301 fluoxetin e medicatio n Not available Not available Not available 09/19/2024 4493 RxNorm Not Available [facility] - production 15:31:46 75536 lisinopri l medicatio n Not available Not available Not available 09/19/2024 68706 Rx[facility] Not Available [facility] 15:31:46 11346 sumatript an medicatio n Not available Not available Not available 09/19/2024 99022 RxNorm Not Available [facility] 15:31:46 Medications Name Sig Start Date Stop Date Status Note LastModified by Organization Details LastModified Time cyclobenzapr ine 10 mg tablet active Not Available Not Available Not Available citalopram 10 mg tablet TAKE 1 TABLET BY MOUTH EVERY DAY IN ADDITION TO 20 MG TABLET active Not Available Not Available No t Available amlodipine 5 mg tablet active Not Available Not Available No t Available acetaminophe n 500 mg tablet TAKE 1 TABLET BY MOUTH EVERY 4-6 HOURS NEEDED. DO NOT EXCEED 8 TABLETS PER 24 HOURS active Not Available Not Available No t Available levothyroxin e 75 mcg tablet TAKE 1 TABLET BY MOUTH IN THE MORNING active Not Available Not Available Not Available hydrocortiso ne 2.5 % topical cream with perineal applicator APPLY RECTALLY TO THE AFFECTED AREA AT BEDTIME NEEDED FOR HEMORRHOIDS active Not Available Not Available Not Available citalopram 20 mg tablet TAKE 1 TABLET BY MOUTH EVERY DAY active Not Available Not Available No t Available lorazepam 0.5 mg tablet TAKE 1 TABLET BY MOUTH TWICE DAILY NEEDED active Not Available Not Available No t Available amlodipine 10 mg tablet active Not Available Not Available Not Available bisacodyl 10 mg rectal suppository UNWRAP AND INSERT 1 SUPPOSITORY RECTALLY DAILY NEEDED FOR CONSTIPATIO N active Not Available Not Available No t Available lisinopril 10 mg tablet TAKE 1 TABLET BY MOUTH IN THE MORNING active Not Available Not Available Not Available Citrucel 500 mg tablet TAKE 1 TABLET BY MOUTH TWICE DAILY active Not Available Not Available No t Available docusate sodium 100 mg capsule TAKE 2 CAPSULES BY MOUTH AT BEDTIME active Not Available Not Available No t Available omeprazole 20 mg capsule,daly yed release TAKE 1 CAPSULE BY MOUTH EVERY DAY BEFORE BREAKFAST active Not Available Not Available No t Available diclofenac sodium 75 mg tablet,delay ed release active Not Available Not Available N ot Available fluticasone 100 mcg-salmeter ol 50 mcg/dose blistr powdr for inhalation USE 1 INHALATION BY MOUTH TWICE DAILY active Not Available Not Available Not Available polyethylene glycol 3350 17 gram/dose oral powder TAKE 17GM BY MOUTH ONCE DAILY active Not Available Not Available N ot Available albuterol sulfate HFA 90 mcg/actuatio n aerosol inhaler INHALE 2 PUFFS BY MOUTH EVERY 4 TO 6 HOURS NEEDED active Not Available Not Available No t Available fluticasone propionate 50 mcg/actuatio n nasal spray,suspen stephen SHAKE LIQUID AND USE 2 SPRAYS IN EACH NOSTRIL EVERY MORNING NEEDED FOR ALLERGIES active Not Available Not Available No t Available ipratropium bromide 21 mcg (0.03 %) nasal spray USE 2 SPRAYS IN EACH NOSTRIL THREE TIMES DAILY NEEDED FOR NASAL CONGESTION active Not Available Not Available N ot Available amoxicillin 875 mg-potassium clavulanate 125 mg tablet TAKE 1 TABLET BY MOUTH TWICE DAILY FOR 7 DAYS active Not Available Not Available No t Available bupropion HCl XL 150 mg 24 hr tablet, extended release TAKE 1 TABLET BY MOUTH EVERY MORNING DIRECTED active Not Available Not Available No t Available Nasal [place] (sodium chloride) 0.65 % aerosol USE 1 TO 2 SPRAY(S) IN EACH NOSTRIL EVERY 2 TO 3 HOURS NEEDED FOR NASAL CONGESTION active Not Available Not Available N ot Available diclofenac 1 % topical gel APPLY SMALL AMOUNT TO THE AFFECTED JOINTS THREE TIMES DAILY active Not Available Not Available No t Available cholecalcife rol (vitamin D3) 50 mcg (2,000 unit) capsule TAKE 1 CAPSULE BY MOUTH ONCE DAILY active Not Available Not Available No t Available [employer] COVID-19 Ag Self Test kit TEST DIRECTED TODAY active Not Available Not Available No t Available Paxlovid 300 mg (150 mg x 2)-100 mg tablets in a dose pack TAKE 3 TABLETS TOGETHER (TWO 150 MG NIRMATRELVI R TABLETS AND ONE 100 MG RITONAVIR TABLET) BY MOUTH TWICE DAILY FOR 5 DAYS. active Not Available Not Available No t Available Vitals Date Recorded Body weight Respiratory rate Body temperature Body height Heart rate Oxygen saturation Oxygen saturation in Arterial blood by Pulse oximetry Systolic And Diastolic Provider Name and Address Organization Details Last Updated DateTime 5 33737.4 g 1 /min 98 [degF] 157.48 cm 93 /min 96 % 96 % 141/87 mm[Hg] Not Available [facility] - production 5 17:24:24 Date Recorded Heart rate Body temperature Oxygen saturation Oxygen saturation in Arterial blood by Pulse oximetry Body weight Body height Respiratory rate Systolic And Diastolic Provider Name and Address Organization Details Last Updated DateTime 3 78 /min 97.7 [degF] 98 % 98 % 33795.2 4 g 154.94 cm 18 /min 117/80 mm[Hg] Not Available [employer] - production 3 15:43:00 Social History None recorded. Functional Status None recorded. Mental Status None recorded. Family History Nothing Reported. Medical History No medical history recorded. Gynecological HistoryNo gynecological history recorded. Obstetrics History GPAL:G 0 P 0 0 0 0 Past Encounters Encounter ID Performer Location Encounter Start Date Encounter Closed Date Diagnosis/Indication Diagnosis SNOMED-CT Code Diagnosis ICD10 Code Diagnosis Note [id number] Rik Dhillon MD Main - [address] [id number] 01/28/2023 15:42:58 02/01/2023 14:13:30 Pain of multiple joints 73792358 M25.50 [id number] [facility] [address] [place] [id number] 09/19/2024 17:18:08 09/20/2024 10:09:53 Diarrhea 60444657 R19.7 Evaluation in the field was performed by my chemical equipment sales engineer colleague, as noted above, I provided real-time direction and supervisio n for this visit. The evaluation revealed 53-year-ol d female presenting with complaints of diarrhea and lower mid-abdomi nal cramping for the past 2 days.The patient reports her last episode of diarrhea was three hours ago, described as clear to yellow fluid, with no black or bloody stools. She denies nausea, vomiting, chest pain, difficulty breathing, or any other associated symptoms.S he reports a history of constipati on for two weeks, for which she started a stool softener. After having a heavy meal, she developed diarrhea. She has been eating and drinking adequately throughout . Vital Signs: Unremarkab le. RR: 14Exam:AAO x3, NAD, speaking in full sentencesL ungs: CTABAbdome n: Soft, non-tender , non-disten dedExtremi ties: No lower extremity edemaBMP: K 3.5, Cl 103, TCO 27.7, Glu 111, BUN 13, Cr 0.80, AG 10Lactate: 0.80Hct 41%, Hb 13.8 g/dLAllerg ies reviewed. Impression :Acute diarrhea, likely postprandi al/reactiv e after stool softener use and a heavy meal Plan:-LR 1 L was administer ed.-The patient was encouraged to maintain adequate oral hydration with electrolyt e-rich fluids (e.g., Pedialyte, broth, diluted juice).-Th e patient was advised to continue a normal diet as tolerated, avoiding dairy, caffeine, and high-fat foods until symptoms resolved.- KCl 40 mEq was administer ed.Red flags discussed with the patient : Persistent diarrhea beyond 3 5 days, bloody stools, fever, severe abdominal pain, dizziness, dry mouth, decreased urine output. Primary care, consider__ _ Dispositio n: We discussed the diagnostic uncertaint y of home visits and the risk associated with this. In this case, the patient and I felt this to be an acceptable and reasonable amount of risk given the benefit of avoiding an ED visit. We discussed the need to seek care urgently/e mergently in the setting of any new or worsening serious symptoms, particular ly persistent diarrhea beyond 3 5 days, bloody stools, fever, severe abdominal pain, dizziness, dry mouth, decreased urine output. Health Concerns Section Related Observation LastModified by Organization Wild ls LastModified Time None Recorded Concern Status LastModified by Organization Details LastModified Time None Recorded Advance Directives Directive None Recorded Payers Insurance Date Sequence Insurance Name Policy Number Policy Downey Covered Member ID Downey Member ID Guarantor Name 10/12/2024 1 [facility] - DOS ON OR AFTER 2022 - DUAL ELIGIBLE - LONG TERM OPTIONS AND ONE CARE (MEDICARE REPLACEMENT/ADV ANTAGE - HMO) Laisha Riggins [id number] Laisha Riggins Notes Date Note Type Note Provider Name and Address Organization Details Recorded Time 01/28/2023 text/html ROS as noted in the HPI This was a supervised home visit with chemical equipment sales engineer Neisha Copeland. HPI: Call to Laisha Dan, reports having 3 days of body aches. Per pt no fever. Per pt had homekit for OCVID-19 yesterday and negative. No cough or other CONSTANTINE sx. Per patient pain is severe. Having bilatearl knee pain and swelling that is chronic. No swelling, redness or rash over other joints. Pt advised of seeking WIC. Pt prefers [facility] due to pain. ...................... ...................... ...................... ...................... ...................... ...................... ......... CRC Nursing Assessment: Comments: CRC RN DID NOT NEED FURTHER INFO ...................... ...................... ...................... ...................... ...................... ...................... ......... Manager Analytical Note From Neisha Copeland: Sent to a call for a pt complaining of body aches x 3 days. SC8 arrives on scene, pt is alert and oriented, airway is patent. Pt states she has a history of osteoarthritis which typically manifests in bilateral knee pain and intermittent swelling. Pt complains of worsening pain in all joints, but primarily left shoulder and neck for at least 4 months. Pt has frequent left shoulder dislocations which resolve on their own. Pt has a quality control director and was seen approx 4 months ago. Time frame for pain is difficult to obtain as pt has different answers each time. Pt complains of recent increased stress and worsening pain x 3 days. Pt denies barillas, dizziness, cp, sob, n/v/d, abd pain, fever, trauma, or loc. Pt has only one kidney, so does not take NSAID's. Pt states she takes Tylenol 500mg BID prn, but tries to take low doses to avoid hepatic issues. Pt denies known contact with ticks. BP:117/80, P:78, RR:18, SpO2:98% RA, T:97.7; Head: unremarkable; Lung sounds: clear bilaterally; Abdomen: soft, non-tender, no distention; Back: unremarkable; Upper extremities: bilateral joint pain, no heat, erythema, tenderness, or swelling noted; Lower extremities: bilateral joint pain, no head, erythema, or tenderness noted; bilateral knee swelling noted (pt states this is baseline); Skin: [place], warm, dry; Rapid covid test: neg; [facility] consulted and orders bloodwork to be taken to [facility]. sends script to pt's pharmacy for Diclofenac gel. [facility] Venous blood draw performed, and blood samples obtained to take to [facility]. Red flags discussed. Pt has no further questions. ...................... ...................... ...................... ...................... ...................... ...................... ......... Disposition: Fulfilled Rik Dhillon MD [address] [facility],[address], [place], [phone], [employer] 01/28/2023 16:56:47 09/19/2024 text/html ROS as noted in the HPI HPI: HX: Renal Agenesis, cerebral meningioma.Patient with 6 stools today following [facility] [employer] yesterday. Is on Senna for constipation and Sepbound for weight loss. Allergies Calcium Carbonate Drug Ingredient Not Specified Allergy 09/11/2020Other reaction(s): HivesLisinopril Drug Ingredient Not Specified 10/28/2023Soybean Oil Drug Ingredient Not Specified Allergy 01/01/2021umatriptan Drug Ingredient Not Specified Allergy 03/11/2020Cinnamon Drug Ingredient Rash Low Allergy 06/08/2010Other reaction(s): throat tightFluoxetine ..................... ...................... ...................... ...................... ...................... ...................... .......... CRC Nurse Triage Notes (Kamryn Garcia): Chief Complaints: Diarrhea PMH: COPD/Asthma, Hypertension, Asthma, Gastroesophageal Reflux Disease (GERD) PMH Reviewed at 09/19/2024 15:31 Allergies Reviewed at 09/19/2024 15:31 Comments: HPI reviewed Manager Analytical [facility] Legal Name: [facility] Transportation Address: [address] [place] [address], [place] [address], Miscellaneous Machine Operator: Zeferino Burton MD CLIA No.: [id number] Manager Analytical POC Test Results from Michael Sanchez [facility] (17:48:47) pH: 7.398 pH units pCO2: 46.2 mmHg pO2: 26.7 mmHg Na: 140 mmol/L K: 3.5 mmol/L iCa: 1.17 mmol/L Cl: 103 mmol/L TCO2: 27.7 mEq/L Hct: 41 % Hb: 13.8 g/dL Glu: 111 mg/dL Lac: 0.80 mmol/L Cr: 0.80 mg/dL BUN: 13 mg/dL A mmol/L HCO3: 28.5 mmol/L ...................... ...................... ...................... ...................... ...................... ...................... ......... Manager Analytical Note From Michael Sanchez: Patient alert and oriented seated in chair. Patient complains of lower middle abdominal cramping pain and diarrhea times 48 hours. Patient also complains of headache. Patient reports last diarrhea was three hours ago clear to yellow fluid no black or bloody stools. Patient denies nausea, vomiting, chest pain, difficulty breathing or any other pain or complaints. Patient reports she had been constipated for two weeks started stool softener had a heavy meal and began diarrhea. Patient reports she has been eating and drinking throughout. Patient, pink warm, dry, secondary exam unremarkable abdomen soft, nontender extremities, unremarkable negative increase work of breathing positive full sentences. [facility] [place] EPOC data, LR1L IV now, potassium 40 MEQ PO now and to follow up with PCP. Medication administered as ordered without complication using five rights. Patient reports relief of headache after fluid administration. Red flags patient education discussed. [facility] Lab Orders: BMP, serum or plasma: Performed [facility] Medication Orders: lactated Ringers intravenous solution: Administered potassium chloride ER 20 mEq tablet,extended release: Administered ...................... ...................... ...................... ...................... ...................... ...................... ......... [facility] Consulted: Jed Yeager ...................... ...................... ...................... ...................... ...................... ...................... ......... Disposition: Fulfilled JED YEAGER MD [address] [facility],[address], [place], [id number], [place] - [facility] HealthKAELA HARDIN 09/19/2024 23:31:45 OBGyn Episode No OBEpisode recorded.
--- OUTSIDE RECORDS SUMMARY | 2025-01-11 13:25 | XMS_ITS | Clinical Summary ---
Author Organization [employer] Address [address] [facility] [address] [place] [address] Care Team Providers Care Airport Attendant Name Role Phone Olamide Chandler MD Primary [...] MG TABLET 07/28/19 23 Active sodium chloride ([place] Nasal [place]) 0.65 % nasal sprayIndications:C OVID-19 1-2 sprays on each nostril every 2-3 hours as needed for nasal congestion 30 mL 1 11/24/19 23 Active loratadine (Claritin) 10 MG tablet Take 1 tablet (10 mg) by mouth in the morning. 30 tablet 2 03/16/20 23 Active albuterol 108 (90 Base) MCG/ACT inhalerIndications :Uncomplicated asthma, unspecified asthma severity, unspecified whether persistent [...] or itching 40 capsule 1 01/11/20 24 Active carvedilol (Coreg) 6.25 MG tabletIndications: Essential hypertension Take 1 tablet (6.25 mg) by mouth with breakfast and with evening meal. 60 tablet 11 05/31/20 24 025 Active ammonium lactate (Lac-Hydrin) 12 % lotionIndications: Dry skin dermatitis Apply topically if needed for dry skin. 225 g 1 05/31/20 24 025 Active pseudoephedrine (Sudafed) 30 MG tablet Take 1 tablet (30 mg) by mouth every 4 (four) hours if needed for congestion for up to 10 days. 30 tablet 06/05/20 24 Active senna-docusate (Senokot S) 8.6-50 MG tabletIndications: Constipation, unspecified constipation type Take 1 tablet by mouth Once per day. 30 tablet 11 08/31/19 25 026 Active Tirzepatide-Weight Management (Zepbound) 5 MG/0.5ML solution auto-injectorIndic ations:Class 3 severe obesity due to excess calories with serious comorbidity and body mass index (BMI) of 45.0 to 49.9 in adult Inject 0.5 mL (5 mg) under the skin 1 (one) time per week. 2 mL 08/31/19 25 Active omeprazole (PriLOSEC) [address] capsuleIndications :Gastroesophageal reflux disease, unspecified whether esophagitis present TAKE 1 CAPSULE BY MOUTH EVERY DAY BEFORE BREAKFAST 90 capsule 10/12/19 25 Active cholecalciferol VITAMIN D (Vitamin D-3) 50 MCG (1999 UT) capsuleIndications :Vitamin D deficiency TAKE 1 CAPSULE BY MOUTH DAILY 90 capsule 1 11/20/19 25 Active fluticasone (Flonase) 50 MCG/ACT nasal sprayIndications:S easonal allergies SHAKE LIQUID AND USE 2 SPRAYS IN EACH NOSTRIL EVERY MORNING NEEDED FOR ALLERGIES 48 g 11/20/19 25 Active levothyroxine (Synthroid, Levoxyl) 75 MCG tabletIndications: Other specified hypothyroidism TAKE 1 TABLET BY MOUTH IN THE MORNING 90 tablet 1 11/22/19 25 Active Zepbound 2.5 MG/0.5ML solution auto-injectorIndic ations:Class 3 severe obesity due to excess calories with serious comorbidity and body mass index (BMI) of 45.0 to 49.9 in adult INJECT 2.5 MG SUBCUTANEOUS WEEKLY 2 mL 12/05/19 25 Active cyclobenzaprine (Flexeril) 10 MG tabletIndications: Acute pain of right shoulder Take 1 tablet (10 mg) by mouth 3 times daily for 10 days. 30 tablet 12/15/19 23 025 Discontin ued(Thera py completed ) Active Problems Problem Noted Date Diagnosed Date Lightheadedness 01/02/2025 Assessment & Plan (01/02/2025 12:27 PM EDT): It is right related to hypertension, long-term uncontrolled hypertension. Follow closely with cardiology and PCP for HTN control, the is no evidence of orthostatics on today's exam. Check electrolytes today, order leg ultrasound, rule out carotid stenosis as a complication of long-term uncontrolled hypertension. Follow-up with PCP Discussed with patient that if she continues with persistent symptoms to limit ambulation or she cannot get up from bed, she should go immediately to ED Constipation 08/30/2024 Assessment & Plan (08/30/2024 9:37 [...] It seems to be Poison James or [place] rash. We discuss about avoiding scratching, use [...] 09/01/2022 Essential hypertension 08/02/2022 Assessment & Plan (01/02/2025 12:25 PM EDT): Uncontrolled despite weight loss. Medication recently adjusted by cardiology, no change in medications today and she will follow-up with them tomorrow, will order BMP to check electrolytes that may be responsible for his dizziness Follow-up with PCP and bring all her medications. 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 Skin tag 02/03/2018 Hypothyroidism 04/16/2015 Assessment & Plan (01/02/2025 12:26 PM EDT): Check TSH, will call to adjust meds if needed, otherwise continue on levothyroxine 75 mcg/D Impaired glucose tolerance 04/16/2015 Menstrual migraine 04/16/2015 Mild intermittent asthma 04/16/2015 Morbid obesity 04/16/2015 Osteoma of skull 04/16/2015 Congenital solitary kidney 04/16/2015 History of cerebral meningioma 09/08/2014 Assessment & Plan (09/08/2022 9:43 AM EDT): Patient informs h/o meningioma has not being monitor for the past [address] f/u Encounters Date Type Department Care Team Description 01/11/2025 Orders Only GENERIC EXTERNAL DATA DEPARTMENT Provider, Generic External Data 01/11/2025 Travel 01/08/2025 Patient Outreach [facility] [address] [place] [address] Olamide Chandler MD Pre-visit Planning (SDOH screening negative and tobacco screening negative) 01/07/2025 Telephone [facility] [address] [place], [place] [phone] Olamide Chandelr MD Med Refill 01/02/2025 11:00 AM EDT Office Visit [facility] [address] [facility] [place] [address] [facility] Essential hypertension; Acquired hypothyroidism 01/02/2025 Travel 01/01/2025 Travel 12/31/2024 Telephone [facility] [address] [place] [address] Olamide Chandler MD Nurse Triage 12/04/2024 Telephone [facility] [address] [place] [address] Olamide Chandler MD Med Refill 12/04/2024 Orders Only [facility] [address] [place] [address] Olamide Chandler MD 12/03/2024 Refill [facility] [address] [place] [address] Olamide Chandler MD Class 3 severe obesity due to excess calories with serious comorbidity and body mass index (BMI) of 45.0 to 49.9 in adult 11/28/2024 Telephone [facility] [address] [place] [address] Olamide Chandler MD Prior Authorization (/) 11/27/2024 Refill [facility] [address] [place] [address] Olamide Chandler MD Class 3 severe obesity due to excess calories with serious comorbidity and body mass index (BMI) of 45.0 to 49.9 in adult 11/23/2024 Telephone [facility] [address] [place] [address] Olamide Chandler MD Prior Authorization ([facility] PA: Zepbound 2.5 mg) 11/20/2024 Refill [facility] [address] [place], [place] [phone] Olamide Chandler MD Other specified hypothyroidism 11/17/2024 Refill [facility] [address] [place], [place] [phone] Olamide Chandler MD Vitamin D deficiency; Seasonal allergies 11/05/2024 Refill [facility] [address] [place] [address] Olamide Chandler MD Class 3 severe obesity due to excess calories with serious comorbidity and body mass index (BMI) of 45.0 to 49.9 in adult 11/03/2024 Refill [facility] [address] [place] [address] Olamide Chandler MD Class 3 severe obesity due to excess calories with serious comorbidity and body mass index (BMI) of 45.0 to 49.9 in adult 10/19/2024 Orders Only [facility] [address] [place] [address] ProviderMaurisio MD 10/12/2024 Refill [facility] [address] [place] [address] Olamide Chandler MD Class 3 severe obesity due to excess calories with serious comorbidity and body mass index (BMI) of 45.0 to 49.9 in adult from Last 3 Months Immunizations Immunization Administration [...] housing situation today? I have jozef granados 01/08/[address] you li ve. Do you have problems with any of the following? None of the above 01/08/2025 Food Insecurity Answer Date Recorded Within the past 12 months, y ou worried that your food would run out before you got money to buy more: Never True 01/08/2025 Within the past 12 months,th e food you bought just didn't last and you didn't have enough money to get more: Never True Transportation Answer Date Recorded In the past 12 months, has l ack of transportation kept you from medical appts, meetings, work or from getting things needed for daily living? No 01/08/2025 Utilities Answer Date Recorded In the past 12 months, has t he electric, gas, oil or water company threatened to shut off services in your home? No 01/08/2025 Depression Answer Date Recorded Patient Health Questionnaire-2 Score 6 03/12/2024 Internet Access Answer Date Recorded Internet Access Q1 Yes 01/08/2025 Internet Access Q2 Not on file 01/08/2025 Comments No Sex and Gender Information Value Date Recorded Sex Assigned at Female 04/19/2022 10:15 AM EDT Legal Sex Female 10:15 AM EDT Gender Identity Female 04/19/2022 10:15 AM EDT Sexual Orientation Lesbian or Ramirez 04/19/2022 10 :15 AM EDT Last Filed Vital Signs Vital Sign Reading Time Taken Comments Blood Pressure 150/92 01/02/2025 11:22 AM EDT Pulse 82 01/02/2025 11:22 AM EDT Temperature 36.9 C (98.4 F) 01/02/2025 10:46 AM EDT Respiratory Rate 12 01/02/2025 10:46 AM EDT Oxygen Saturation 97% 06/08/2024 9:34 AM EST Inhaled Oxygen Concentration - - Weight 86.8 kg (191 lb 6 oz) 01/02/2025 10:46 AM EDT Height 154.9 cm (5' 1 ) 01/02/2025 10:46 AM EDT Body Mass Index 36.16 01/02/2025 10:46 AM EDT Plan of Treatment Upcoming Encounters Date Type Department Care Team (Late st Contact Info) Description 01/18/2025 11:30 AM EDT Office Visit [facility] [address] [place], [place] [phone] Olamide Chandler MD [address] [place], [place] [phone] Health Maintenance Due Date Last Done Comments CT Colonography 1971 FIT DNA/Cologuard 1971 FIT 1971 FOBT 1970 HIV Screening 1970 Sigmoidoscopy 1971 Alcohol/Substance Use Screening 1983 Hepatitis C Screening 10/21/1989 COVID-19 Vaccine ( season) 2024 10/28/2023, 06/22/2021, 09/10/2020, Additional history exists Depression Monitoring 09/09/2024 03/12/2024, 024 Influenza Vaccine (#1) 2025 , 03/12/2022, 04/08/2021, Additional history exists Diabetes: Hemoglobin A1C 03/29/2025 024, 08/18/2023, 04/26/2023, Additional history exists Mammogram 11/14/2025 11/14/2024, 0412/2024, 09/15/2023, Additional history exists Tobacco Screening 01/02/2026 01/02/2025 SDOH Screening 01/08/2026 01/08/2025 Disability Screening 01/11/2026 01/11/2025 Colonoscopy 04/12/2027 04/12/2022 Colorectal Cancer Screening 04/12/2027 [...] 03/03/2016 Pneumococcal Vaccine: 50+ Years Completed 10/28/2023 Zoster Vaccines Completed 07/14/2024, 04/13/2024 HIB Vaccines [...] Procedure Name Priority Date/Time Associated Diagnosis Comments HIGH SENSITIVITY TROPONIN I Routine 01/11/2025 11:20 AM EDT MAGNESIUM Routine 01/11/2025 11:20 AM EDT COMPREHENSIVE METABOLIC PANEL Routine 01/11/2025 11:20 AM EDT CBC WITH AUTO DIFFERENTIAL Routine 01/11/2025 11:20 AM EDT SARS COV2/INFLUENZA A/B AND RSV RNA QL NAAT Routine 01/11/2025 11:20 AM EDT BASIC METABOLIC PANEL Routine 01/02/2025 11:37 AM EDT Essential hypertension TSH W/REFLEX TO FT4 Routine 01/02/2025 1 1:37 AM EDT Acquired hypothyroidism BI US BREAST LIMITED LEFT Routine 11/14/2024 11:00 AM EDT BI MAMMOGRAM DIAGNOSTIC TOMOSYNTHESIS ADDED VIEW LEFT Routine 11/14/2024 10:30 AM EDT HEMOGLOBIN A1C Routine 03/29/2024 9:50 AM EDT Essential hypertension LIPID PANEL WITH REFLEX TO DIRECT LDL Routine 03/29/2024 9:50 AM EDT Essential hypertension IMAGE-GUIDED PAP W/AGE BASED SCR,W/CT/NG/TRICH Routine 10/29/2022 11:29 AM EDT Encounter for Papanicolaou smear for cervical cancer screening HM COLONOSCOPY Routine 04/12/2022 10:07 PM EDT from Last 3 Months or Most Recently Relevant to Health Maintenance Results * High Sensitivity Troponin I (01/11/2025 11:20 AM EDT) TROPONIN I HIGH SENSITIVITY <2.7 <3.5 - 17.0 ng/L [facility] Comment:The Tristan high sens itivity Troponin-I results should beused in conjunction with other diagnostic information suchas ECG, clinical observations and information, and patientsymptoms to aid in the diagnosis of VT. 01/11/2025 11:2 0 AM EDT 01/11/2025 11:23 AM EDT Generic External Data Provider LAB BLOOD ORDERAB LES Final Result Performing Organization Address [facility] de Phone Number [facility] [address] [place] [phone] * SARS-CoV-2 RNA, Influenza A/B, and RSV RNA, Ql NAAT (01/11/2025 11:20 AM EDT) [facility] Influenza A PCR NEGATIVE Negative [facility] Influenza B PCR NEGATIVE Negative [facility] Resp Syncy Virus RNA Qual PCR NEGATIVE Negative [facility] SARS COV2 PCR NEGATIVE Negative [...] use by authorized laboratories.Testing performed on the Cool Lumens GeneXpert utilizingreal-time RT-PCR.All SARS CoV2 and positive influenza A/B results arereported to [facility]. 01/11/2025 11:2 0 AM EDT 01/11/2025 11:23 AM EDT Generic External Data Provider LAB MICROBIOLOGY - GENERAL ORDERABLES Final Result Performing Organization Address [facility] Co de Phone Number [facility] [address] [place] [phone] * (ABNORMAL) CBC auto differential (01/11/2025 11:20 AM EDT) [facility] White Blood Count 10.0 4.8 - 10.8 X10*3/uL [facility] Red Blood Count 4.67 4.20 - 5.50 X10*6/uL [facility] Hemoglobin 13.6 12.0 - 16.0 g/dl [facility] Hematocrit 41.0 37.0 - 47.0 % [facility] Mean Corpuscular Volume 87.8 80.0 - 98.0 fL [facility] Mean Corpuscular Hemoglobin 29.1 27.0 - 33.0 pg [facility] Mean Corpuscular HGB Conc 33.2 31.0 - 35.0 g/dl [facility] Red Cell Distribution Width 12.5 11.0 - 16.0 % [facility] Platelet Count 310 160 - 400 X10*3/uL [facility] Mean Platelet Volume 9.7 9.4 - 12.3 fL [facility] Neutrophils Percent Auto 80.0(H) 45 - 73 % [facility] Imm Gran Pct Auto 0.3 0.0 - 0.4 % [facility] Lymphocytes Percent Auto 13.3(L) 20 - 40 % [facility] Monocytes Percent Auto 5.2 2 - 11 % [facility] Eosinophils Percent Auto 0.6 0 - 4 % [facility] Basophils Percent Auto 0.6 0 - 2 % [facility] NRBC Pct Auto 0.0 0.0 - 0.2 /100WBC [facility] Neutrophils Absolute Auto 8.0 2.0 - 8.3 x10*3/uL [facility] Imm Gran Abs Auto 0.03 0.00 - 0.03 X10*3/uL [facility] Lymphocytes Absolute Auto 1.3 1.2 - 4.9 X10*3/uL [facility] Monocytes Absolute Auto 0.5 0.1 - 1.2 X10*3/uL [facility] Eosinophils Absolute Auto 0.1 0.0 - 0.4 X10*3/uL [facility] Basophils Absolute Auto 0.1 0.0 - 0.2 X10*3/uL [facility] NRBC Abs Auto 0.000 0.0 - 0.012 X10*3/uL [facility] 01/11/2025 11:2 0 AM EDT 01/11/2025 11:23 AM EDT us Generic External Data Provider LAB BLOOD ORDERAB LES Final Result Performing Organization Address City/[facility]/ZIP Co de Phone Number [facility] [address] [place] [phone] * Magnesium (01/11/2025 11:20 AM EDT) Magnesium 2.2 1.6 - 2.6 mg/dL [facility] 01/11/2025 11:2 0 AM EDT 01/11/2025 11:23 AM EDT Generic External Data Provider LAB BLOOD ORDERAB LES Final Result Performing Organization Address [facility] Co de Phone Number [facility] [address] [place] [phone] * (ABNORMAL) Comprehensive Metabolic Panel (01/11/2025 11:20 AM EDT) Sodium 140 135 - 145 mmol/L [facility] Potassium 4.1 3.3 - 5.1 mmol/L [facility] Chloride 104 96 - 108 mmol/L [facility] Carbon Dioxide 30(H) 22 - 29 mmol/L [facility] Anion Gap 10(L) 12 - 20 [facility] Urea Nitrogen (BUN) 15 9 - 16 mg/dL [facility] Creatinine, Serum 0.79 0.5 - 1.4 mg/dL [facility] Creatinine Clr Calc Pharmacy 82.0 [facility] Comment:Provided height and weight: 154.94 cm,86.183 kg.eGFR (calculated from the MDRD study equation) and eCrCl(calculated from the Cockcroft-Gault equation) are based ondifferent parameters and may not yield comparable results.If eCrCl result is absurd, please check patient'sheight/weight. Estimated Glomerular Filt Rate >60 [facility] Comment:Chronic Kidney Disea se: Estimated GFR < 60 mL/min/1.95j9Sogfeh Kidney Disease: Estimated GFR < 15 mL/min/1.73m2 Glucose 120(H) 60 - 115 mg/dL [facility] Calcium 9.5 8.4 - 10.2 mg/dL [facility] Bilirubin, Total 0.4 0.0 - 1.0 mg/dL [facility] Aspartate Amino Transferase 24 5 - 31 U/L [facility] Alanine Aminotransferase 17 0 - 31 U/L [facility] Total Protein 7.8 6.5 - 8.0 g/dL [facility] Albumin Level 4.2 3.5 - 5.0 g/dL [facility] Alkaline Phosphatase 73 39 - 117 U/L [facility] 01/11/2025 11:2 0 AM EDT 01/11/2025 11:23 AM EDT us Generic External Data Provider LAB BLOOD ORDERAB LES Final Result Performing Organization Address [facility]/ZIP Co de Phone Number [facility] [address] [place] [phone] * TSH with Reflex to Free T4 (01/02/2025 11:37 AM EDT) TSH reflex Free T4 1.18 0.32 - 4.0 uIU/mL [facility] Blood 01/02/2025 11:3 7 AM EDT 01/02/2025 1:47 PM EDT us Brittney Graham MD LAB BLOOD ORDERABLES Fin al Result Performing Organization Address [facility]/ZIP Co de Phone Number [facility] [address] [place] [phone] * (ABNORMAL) Basic Metabolic Panel (01/02/2025 11:37 AM EDT) Sodium 138 135 - 145 mmol/L [facility] Potassium 3.9 3.3 - 5.1 mmol/L [facility] Chloride 104 96 - 108 mmol/L [facility] Carbon Dioxide 27 22 - 29 mmol/L [facility] Anion Gap 11(L) 12 - 20 [facility] Urea Nitrogen (BUN) 9 9 - 16 mg/dL [facility] Creatinine, Serum 0.83 0.5 - 1.4 mg/dL [facility] Estimated Glomerular Filt Rate >60 [facility] Comment:Chronic Kidney Disea se: Estimated GFR < 60 mL/min/1.25n2Vordkj Kidney Disease: Estimated GFR < 15 mL/min/1.73m2 Glucose 116(H) 60 - 115 mg/dL [facility] Calcium 9.3 8.4 - 10.2 mg/dL [facility] Blood Venous blood specimen / Unknown 01/02/2025 11:37 AM EDT 01/02/2025 1:47 PM EDT Brittney Graham MD LAB BLOOD ORDERABLES Fin al Result Performing Organization Address City/State/[facility] Co de Phone Number [facility] [address] [place] [phone] * BI US Breast Limited Left (11/14/2024 11:00 AM EDT) Anatomical Region Laterality Modality Breast Left Ultrasound 11/14/2024 11:0 0 AM EDT Narrative 11/14/2024 3:08 PM EDT [facility] [address] [place] [address] Ultrasound Report Signed Patient: Laisha Ye I MR#: [id number] : 1970 Acct:[id number] Age/Sex: 54 / F ADM Date: 11/14/24 Loc: HO.MAMMO Attending Dr: Olamide Stevens MD Ordering Physician: Olamide Chandler MD Date of Service: 11/14/24 Procedure(s): US breast LT limited mamm only Accession Number(s): [id number] cc: Olamide Chandler MD EXAMINATION: MM DIAGNOSTIC DIGITAL BREAST TOMOSYNTHESIS, LEFT Limited left breast ultrasound. CLINICAL INFORMATION: Called back from screening for focal asymmetry in the upper outer breast. COMPARISON: Mammography: TECHNIQUE: Digital breast tomosynthesis is performed in both the craniocaudal and mediolateral oblique views along with computer-aided detection (CAD). Synthesized 2D images are generated from the tomosynthesis. FINDINGS: There are scattered areas of fibroglandular density (ACR BI-RADS breast composition Category b). Post reduction mammoplasty changes. Previously seen focal asymmetry in the upper outer breast anterior depth partially effaces on additional imaging projections. No suspicious calcifications or other abnormal findings. Targeted color Doppler ultrasound scanning in the upper outer breast from 10 2:00 demonstrates a heterogeneous echo correlate solid mass versus complicated cyst versus patch of normal fibronodular breast tissue at 1:00 1 cm from the nipple measuring proximal a 5 x 3 x 7 mm. This is a questionable correlate for the area seen on mammography. There is no internal vascular flow. US/US breast LT limited mamm only IMPRESSION: Focal asymmetry in the upper outer breast anterior depth and heterogeneous hypoechoic solid mass versus complicated cyst versus patch of normal fibronodular breast tissue in the left breast at 1:00. Recommend 6 month follow-up left breast mammogram and ultrasound for further evaluation of stability. ASSESSMENT: BI-RADS BI-RADS 3 - Probably benign finding(s) - 6 month follow-up suggested RECOMMENDATION: 6 Month F/U Results were provided to the patient at time of visit by the technologist. This patient's information was entered into a reminder system with a target due date for their next mammogram. Electronically signed by: Deana Shafer DO 11/14/2024 03:05 PM EDT Dictated By: Deana Shafer DO Signed By: <Electronically signed by Deana Shafer DO in OV> 11/14/24 1505 DD/ 1100 TD/TT: 11/14/24 1100 Arborist Representative: Procedure Note Donotuseinterpreter, Image - 11/14/2024 [facility] [address] [place], [place] [address] Ultrasound Report Signed Patient: Laisha Ye [facility]#: [id number] : 1970Acct:[id number] Age/Sex: 54 / FADM Date: 11/14/24 Loc: HO.MAMMO Attending Dr: Olamide Stevens MD Ordering Physician: Olamide Chandler MD Date of Service: 11/14/24 Procedure(s): US breast LT limited mamm only Accession Number(s): [id number] cc: Olamide Chandler MD EXAMINATION: MM DIAGNOSTIC DIGITAL BREAST TOMOSYNTHESIS, LEFT Limited left breast ultrasound. CLINICAL INFORMATION: Called back from screening for focal asymmetry in the upper outer breast. COMPARISON: Mammography: TECHNIQUE: Digital breast tomosynthesis is performed in both the craniocaudal and mediolateral oblique views along with computer-aided detection (CAD). Synthesized 2D images are generated from the tomosynthesis. FINDINGS: There are scattered areas of fibroglandular density (ACR BI-RADS breast composition Category b). Post reduction mammoplasty changes. Previously seen focal asymmetry in the upper outer breast anterior depth partially effaces on additional imaging projections. No suspicious calcifications or other abnormal findings. Targeted color Doppler ultrasound scanning in the upper outer breast from 10 2:00 demonstrates a heterogeneous echo correlate solid mass versus complicated cyst versus patch of normal fibronodular breast tissue at 1:00 1 cm from the nipple measuring proximal a 5 x 3 x 7 mm. This is a questionable correlate for the area seen on mammography. There is no internal vascular flow. US/US breast LT limited mamm only IMPRESSION: Focal asymmetry in the upper outer breast anterior depth and heterogeneous hypoechoic solid mass versus complicated cyst versus patch of normal fibronodular breast tissue in the left breast at 1:00. Recommend 6 month follow-up left breast mammogram and ultrasound for further evaluation of stability. ASSESSMENT: BI-RADS BI-RADS 3 - Probably benign finding(s) - 6 month follow-up suggested RECOMMENDATION: 6 Month F/U Results were provided to the patient at time of visit by the technologist. This patient's information was entered into a reminder system with a target due date for their next mammogram. Electronically signed by: Deana Shafer DO 11/14/2024 03:05 PM EDT Dictated By: Tyminski,Deana DO Signed By: <Electronically signed by Deana Shafer DO in OV> 11/14/24 1505 DD/ 1100 TD/TT: 11/14/24 1100 Arborist Representative: us Olamide Stevens MD IMG US PROCEDURES Fin al Result * BI Mammogram Diagnostic Tomosynthesis added left (11/14/2024 10:30 AM EDT) Anatomical Region Laterality Modality Breast Left Mammography 11/14/2024 10:3 0 AM EDT Narrative 11/14/2024 3:08 PM EDT [facility] [address] [place] [address] Mammography Report Signed Patient: Laisha Ye I MR#: [id number] : 1970 Acct:[id number] Age/Sex: 54 / F ADM Date: 11/14/24 Loc: HO.MAMMO Attending Dr: Olamide Stevens MD Ordering Physician: Olamide Chandler MD Results: 3.6MProbably Benign Finding - Short 6 M F/U Suggested Date of Service: 11/14/24 Follow Up: 6 Month F/U Procedure(s): MM tomosynthesis added views L Accession Number(s): [id number] cc: Olamide Chandler MD EXAMINATION: MM DIAGNOSTIC DIGITAL BREAST TOMOSYNTHESIS, LEFT Limited left breast ultrasound. CLINICAL INFORMATION: Called back from screening for focal asymmetry in the upper outer breast. COMPARISON: Mammography: TECHNIQUE: Digital breast tomosynthesis is performed in both the craniocaudal and mediolateral oblique views along with computer-aided detection (CAD). Synthesized 2D images are generated from the tomosynthesis. FINDINGS: There are scattered areas of fibroglandular density (ACR BI-RADS breast composition Category b). Post reduction mammoplasty changes. Previously seen focal asymmetry in the upper outer breast anterior depth partially effaces on additional imaging projections. No suspicious calcifications or other abnormal findings. Targeted color Doppler ultrasound scanning in the upper outer breast from 10 2:00 demonstrates a heterogeneous echo correlate solid mass versus complicated cyst versus patch of normal fibronodular breast tissue at 1:00 1 cm from the nipple measuring proximal a 5 x 3 x 7 mm. This is a questionable correlate for the area seen on mammography. There is no internal vascular flow. MM/MM tomosynthesis added views L IMPRESSION: Focal asymmetry in the upper outer breast anterior depth and heterogeneous hypoechoic solid mass versus complicated cyst versus patch of normal fibronodular breast tissue in the left breast at 1:00. Recommend 6 month follow-up left breast mammogram and ultrasound for further evaluation of stability. ASSESSMENT: BI-RADS BI-RADS 3 - Probably benign finding(s) - 6 month follow-up suggested RECOMMENDATION: 6 Month F/U Results were provided to the patient at time of visit by the technologist. This patient's information was entered into a reminder system with a target due date for their next mammogram. Electronically signed by: Deana Shafer DO 11/14/2024 03:05 PM EDT RP Dictated By: Deana Shafer DO Signed By: <Electronically signed by Deana Shafer DO in OV> 11/14/24 1505 DD/ 1030 TD/TT: 11/14/24 1100 Arborist Representative: Procedure Note Donotuseinterpreter, Image - 11/14/2024 [facility] [address] [place] [address] Mammography Report Signed Patient: Laisha Ye IMR#: [id number] : 1970Acct:[id number] Age/Sex: 54 / FADM Date: 11/14/24 Loc: HO.MAMMO Attending Dr: Olamide Stevens MD Ordering Physician: Olamide Chandler MD Results: 3.6MProbably Benign Finding - Short 6 M F/U Suggested Date of Service: 11/14/24Follow Up: 6 Month F/U Procedure(s): MM tomosynthesis added views L Accession Number(s): [id number] cc: Olamide Chandler MD EXAMINATION: MM DIAGNOSTIC DIGITAL BREAST TOMOSYNTHESIS, LEFT Limited left breast ultrasound. CLINICAL INFORMATION: Called back from screening for focal asymmetry in the upper outer breast. COMPARISON: Mammography: TECHNIQUE: Digital breast tomosynthesis is performed in both the craniocaudal and mediolateral oblique views along with computer-aided detection (CAD). Synthesized 2D images are generated from the tomosynthesis. FINDINGS: There are scattered areas of fibroglandular density (ACR BI-RADS breast composition Category b). Post reduction mammoplasty changes. Previously seen focal asymmetry in the upper outer breast anterior depth partially effaces on additional imaging projections. No suspicious calcifications or other abnormal findings. Targeted color Doppler ultrasound scanning in the upper outer breast from 10 2:00 demonstrates a heterogeneous echo correlate solid mass versus complicated cyst versus patch of normal fibronodular breast tissue at 1:00 1 cm from the nipple measuring proximal a 5 x 3 x 7 mm. This is a questionable correlate for the area seen on mammography. There is no internal vascular flow. MM/MM tomosynthesis added views L IMPRESSION: Focal asymmetry in the upper outer breast anterior depth and heterogeneous hypoechoic solid mass versus complicated cyst versus patch of normal fibronodular breast tissue in the left breast at 1:00. Recommend 6 month follow-up left breast mammogram and ultrasound for further evaluation of stability. ASSESSMENT: BI-RADS BI-RADS 3 - Probably benign finding(s) - 6 month follow-up suggested RECOMMENDATION: 6 Month F/U Results were provided to the patient at time of visit by the technologist. This patient's information was entered into a reminder system with a target due date for their next mammogram. Electronically signed by: Deana Shafer DO 11/14/2024 03:05 PM EDT Dictated By: Deana Shafer DO Signed By: <Electronically signed by Deana Shafer DO in OV> 11/14/24 1505 DD/ 1030 TD/TT: 11/14/24 1100 Arborist Representative: us Olamide Stevens MD IMG BI PROCEDURES Fin al Result * (ABNORMAL) Lipid Panel with Reflex to Direct LDL (03/29/2024 9:50 AM EDT) Triglycerides 89 <150 mg/dL [facility] Comment:Desirable Triglyceri de: less than 150 mg/dLBorderline High Triglyceride 150-199 mg/dLHigh Triglyceride: 200-499 mg/dLVery High Triglyceride: greater than or equal to 5OO mg/dL Cholesterol 168 <200 mg/dL [facility] Comment:Desirable Cholestero l: less than 200 mg/dLBorderline High Cholesterol: 200-239 mg/dLHigh Cholesterol: greater than 239 mg/dL LDL Cholesterol Calculated 107(H) <100 mg/dL [facility] Comment:Desirable LDL: less than 100 mg/dLNear Optimal/Above Optimal LDL: 110- 129 mg/dLBorderline High LDL: 130-159 mg/dLHigh LDL: 160-189 mg/dLVery High LDL: greater than or equal to 190 mg/dL HDL Cholesterol 44 >40 mg/dL [facility] Comment:Desirable HDL: great er than 40 mg/dL Note: This HDL assay may give artificially low results in patients with liver disease. Blood 03/29/2024 9:50 AM EDT 03/29/2024 11:08 AM EDT us Olamide Stevens MD LAB BLOOD ORDERABLES Final Result [facility] [address] [place] [phone] * Hemoglobin A1c (03/29/2024 9:50 AM EDT) Hemoglobin A1c 6.0 <6.0 % [facility] Comment:Hemoglobin A1C Refer ence Range Adults: 4.8 - 6.0 % Non diabetic: < 6.0 % Goal: < 7.0 %Additional Action Suggested: > 8.0 %Note: Hemoglobin A1c results are invalid for patients with abnormal amounts of HbF. Blood transfusions may impact the HbA1c concentration in the patient sample. Estimated Average Glucose 126 mg/dL [facility] Comment:eAG = Estimated ave rage glucose which is %A1C expressed asaverage glucose, using the formula of the M4H-JzckadrKfcqjpi Glucose study (ADAG), Diabetes Care, Vol.31,#8,Jan. 2007 Blood Venous blood specimen / Unknown 03/29/2024 9:50 AM EDT 03/29/2024 11:08 AM EDT Olamide Stevens MD LAB BLOOD ORDERABLES Final Result [facility] [address] [place] [phone] * Image-Guided Pap with Age-Based Screening??with CT/NG,??Trichomonas (10/29/2022 11:29 AM EDT) Comment [facility] Comment: This order for age-based cervical cancer and STI screening follows ACOG guidelines(PB 168, 140, PPK629). See individual assays for performing site location. Clinical Information: 52 Y/O F NO PREVIOUS ABNORMALITY C [facility] LMP: NONE GIVEN [facility] Prev. PAP: NONE GIVEN [facility] Prev. BX: NONE GIVEN [facility] SOURCE: None given [facility] Statement Of Adequacy: [facility] Comment: Satisfactory for evaluation. Endocervical/transformation zone component absent. Interpretation/Re sult: Negative for intraepithelial lesion or malignancy. [facility] COMMENT: This Pap test has been evaluated with computer assisted technology. [facility] Top Cutter: [facility] Comment: EXJJOÃO(ASCP) CT Screening Location: [address] [address] (Always Message) RUST [facility] Comment: EXPLANATORY NOTE: The Pap is a [...] HPV nRNA E6/E7 Not Detected Not Detected [facility] Comment: Methodology: [employer] Designer-Mediated Amplification This assay detects E6/E7 viral messenger RNA (mRNA) from 14 high-risk HPV types (16,18,31,33,35,39,45,51,52,56,58,59,66,68). Cervical sources are required for HPV testing. If a vaginal source from a patient who has had a total hysterectomy with removal of cervix was submitted, please contact the testing laboratory for alternative testing options. For additional information, please refer to http://[employer].Skemaz/faq/UZN032w2 (This link if provided for information/ educational purposes only.) Chlamydia trachomatis RNA, TMA, Urogenital NOT DETECTED NOT DETECTED [facility] Neisseria gonorrhoeae RNA, TMA, Urogenital NOT DETECTED NOT DETECTED [facility] (Always Message) [facility] Comment: The analytical performance characteristics of this assay, when used to test SurePath(TM) specimens have been determined by [facility]. The modifications have not been cleared or approved by the FDA. This assay has been validated pursuant to the CLIA regulations and is used for clinical purposes. For additional information, please refer to https://[employer]/faq/ITB946 (This link is being provided for information/ educational purposes only.) Trichomonas vaginalis, QL, TMA, PAP Vial NOT DETECTED NOT DETECTED [facility] Comment: The analytical performance characteristics of this assay have been determined by [facility]. The modifications have not been cleared or approved by the FDA. This assay has been validated pursuant to the CLIA regulations and is used for clinical purposes. For additional information, please refer to http://[employer].Skemaz/ faq/Trichomonastma (This link is being provided for information/ educational purposes only.) Pap Vial 10/29/2022 11:2 9 AM EDT 10/31/2022 4:55 PM EDT Olamide Stevens MD LAB CYTOLOGY ORDERABL ES Final Result [facility] [address], [place] [phone] [facility] [address] [place] [address] * Hm Colonoscopy (04/12/2022 10:07 PM EDT) us Historical Provider HEALTH MAINTENANCE Final Result from Last 3 Months or Most Recently Relevant to Health Maintenance Insurance [facility] ONE CARE < 65 Care Teams Airport Attendant Relationship Specialty Start Date End Date Olamide Chandler MD [address] [place] [address] PCP - General Family Medicine 07/28/20
--- NOTE | 2025-01-11 13:47 | ED.GENADULT ---
HPI - General Adult General Chief complaint: Headache Stated complaint: L Facial Numbness Lightheaded Time Seen by Provider: 01/11/25 13:06 Source: patient Mode of arrival: ambulatory Limitations: no limitations History of Present Illness ED Provider: HPI narrative: 54-year-old woman with a history of anxiety, asthma, high blood pressure, chronic ossified cephalohematoma, presenting with intermittent chest pains, headaches, tingling in her arms, this is a recurrent issue going on for the past week unlikely longer if, has a stress test scheduled, ultrasound of the thyroid, and seizure PCP to monitor the ossified skull lesion. No fevers or chills no nausea no vomiting no diarrhea. Accompanied by her . Related Data Home Medications ?Medication ?Instructions ?Recorded ?Confirmed albuterol sulfate 90 mcg/actuation 1 inh inhalation Q4H PRN Wheezing 06/05/20 01/03/23 aerosol inhaler bupropion HCl 150 mg 24 hr tablet, 150 mg PO QAM 06/05/20 01/03/23 extended release lorazepam 0.5 mg tablet 0.5 mg PO BID PRN Anxiety 06/05/20 01/03/23 omeprazole 40 mg capsule,delayed 40 mg PO DAILY 06/05/20 01/03/23 release citalopram 10 mg tablet 10 mg PO DAILY 07/28/20 01/03/23 citalopram 20 mg tablet 20 mg PO DAILY 01/26/21 01/03/23 fluticasone propionate 50 1 spray intranasal DAILY 11/25/21 01/03/23 mcg/actuation nasal spray,suspension (Flonase Allergy Relief) CPAP (CPAP Machine/Device) 01/03/23 01/03/23 carvedilol 3.125 mg tablet 3.125 mg PO BID 01/31/24 triamcinolone acetonide 0.1 % 1 appl topical BID-TID 01/31/24 topical cream Previous Rx's ?Medication ?Instructions ?Recorded cholecalciferol (vitamin D3) 50 50 mcg PO DAILY 30 days #30 caps 08/12/21 mcg (2,000 unit) capsule levothyroxine 75 mcg tablet 75 mcg PO QAM #30 tabs 08/12/21 (Euthyrox) docusate sodium 100 mg capsule 200 mg (2 x 100 mg) PO BEDTIME #60 04/26/22 (Colace) caps methylcellulose (laxative) 500 mg 500 mg PO BID #60 tabs 04/26/22 tablet (Citrucel) hydrocortisone 2.5 % topical cream 1 appl DC BEDTIME PRN hemorrhoids 12/23/22 with perineal applicator #30 grams (Proctosol HC) methylcellulose (laxative) 500 mg 500 mg PO TID 30 days #90 tabs 12/23/22 tablet (Citrucel) Allergies Allergy/AdvReac Type Severity Reaction Status Date / Time cinnamon (CINNAMON) Allergy Intermediate THROAT Verified 01/11/25 10:52 SWELLING soy Allergy Intermediate Itching Verified 01/11/25 10:52 calcium carbonate (From Tums) Allergy Unknown Unknown Verified 01/11/25 10:52 fluoxetine (From PROZAC) Allergy Unknown UNKNOWN Verified 01/11/25 10:52 Review of Systems Constitutional: Constitutional: Reports as per [facility] Past Medical History Medical History Sleep apnea GERD (gastroesophageal reflux disease) Osteoarthritis of hands, bilateral Osteoarthritis of knees, bilateral Flexor tenosynovitis of finger Bilateral hand pain Depression ESR raised Polyarthralgia Vitamin D deficiency Multinodular thyroid Hypothyroidism Surgical History Hx of colonoscopy Hx of tooth extraction Hx of endoscopy Hx of bilateral breast reduction surgery Family History Family History Father Prostate cancer Hypothyroidism Mother Kidney problem Stroke Brother Kidney problem Social History Social History Household Members: None Household Members Other:: Lives alone Housing: House Are you a primary summer child caregiver to a significant other at home: No Do you presently have visiting nurse or other home services: Yes ([employer]) Alcohol intake: never Patient Tobacco Use Status: Never used Tobacco e-Cigarette/Vaping Use: Never Used Advance Directives: Yes Advance Directives Information Provided: Yes Advance Directives on File: No Do you have a plan to hurt others: No Plan service: No Current occupational status: disabled Physical Exam ED Vital Signs: Vital Signs - 24 hr 01/11/25 10:48 Temperature 97.8 F Pulse Rate 81 Respiratory Rate 18 Blood Pressure 157/90 H Pulse Oximetry 100 Oxygen Delivery Method Room Air BMI result Body Mass Index 35.9 Const Other: Gen: ?Overall well-appearing patient HEENT: PERRLA, EOMI, MMM, Neck: Supple, no LAD CV: RRR, no obvious murmurs appreciated Resp: ?No wheezing rales rhonchi no stridor moving air well Abd: ?Bowel sounds are present, no tenderness no rebound no rigidity MSK: FROM, strength 5/5 all extremities Skin: Warm, dry, intact, Neuro: ?Alert and oriented x3, moving upper and lower extremities symmetrically, no obvious facial asymmetry noted, no dysmetria noted upper or lower extremities Medical Decision Making Medical Decision Making MDM Narrative: I am reassured by patient's physical examination, considerations for workup as below, did not feel further imaging such as CT of the brain is indicated at this time she did report history of brain mass , she has stable chronic calcified cephalohematoma on prior imaging, I did work her up for ACS causes, EKG cardiac enzymes nurse to her blood work has been reassuring, she will follow up with the PCP for outpatient workup as documented in HPI. Differential Diagnosis Differential Diagnoses: The differential diagnosis associated with the presentation includes (ACS, stroke, temporal arteritis, brain mass, electrolyte derangements, anxiety) Admission/Observation Consideration of admission/observation: Escalation of care including admission/observation considered 2022 Emergency Medicine Coding Guide from [employer] on 01/11/2025 All calculations should be rechecked by clinician prior to use RESULT SUMMARY: 4 Estimated Level of Service Problems: Moderate (4) Risk: Moderate (4) Data: Extensive (5) NARRATIVE MDM: This patient's problem complexity is Moderate as patient: has a new undiagnosed problem with uncertain prognosis but that could be serious. This patient's risk is Moderate due to: overall presentation requiring evaluation for a potentially Moderate-risk process. This patient's data complexity is Extensive due to: -multiple tests ordered/reviewed -independent interpretation of imaging or EKG INPUTS: Number and Complexity ?> 5 = 4: undiagnosed new problem, uncertain outcome (e) Risk level ?> 3 = Moderate Tests ordered ?> 3 = =3 Tests results reviewed (excluding labs) ?> 3 = =3 Prior external notes reviewed ?> 0 = 0 Assessment requiring and independent historian ?> 0 = No Independent interpretation of tests ?> 1 = Yes Discussed management/test interpretation w/external professional ?> 0 = No Lab Data MDM Lab Attestation statement: I reviewed the patient's lab results. 01/11/25 11:20 01/11/25 11:20 Labs: Lab Results 01/11/25 Range/Units 11:20 WBC 10.0 (4.8-10.8) X10*3/uL RBC 4.67 (4.20-5.50) X10*6/uL Hgb 13.6 (12.0-16.0) g/dl Hct 41.0 (37.0-47.0) % MCV 87.8 (80.0-98.0) fL MCH 29.1 (27.0-33.0) pg MCHC 33.2 (31.0-35.0) g/dl RDW 12.5 (11.0-16.0) % Plt Count 310 (160-400) X10*3/uL MPV 9.7 (9.4-12.3) fL Immature Gran % (Auto) 0.3 (0.0-0.4) % Neut % (Auto) 80.0 H (45-73) % Lymph % (Auto) 13.3 L (20-40) % Walker % (Auto) 5.2 (2-11) % Eos % (Auto) 0.6 (0-4) % Baso % (Auto) 0.6 (0-2) % Lymph # (Auto) 1.3 (1.2-4.9) X10*3/uL Walker # (Auto) 0.5 (0.1-1.2) X10*3/uL Eos # (Auto) 0.1 (0.0-0.4) X10*3/uL Baso # (Auto) 0.1 (0.0-0.2) X10*3/uL Abs Immat Gran (auto) 0.03 (0.00-0.03) X10*3/uL Absolute Neuts (auto) 8.0 (2.0-8.3) x10*3/uL Absolute Nucleated RBC 0.000 (0.0-0.012) X10*3/uL Nucleated RBC % (auto) 0.0 (0.0-0.2) /100WBC Sodium 140 (135-145) mmol/L Potassium 4.1 (3.3-5.1) mmol/L Chloride 104 (96-108) mmol/L Carbon Dioxide 30 H (22-29) mmol/L Anion Gap 10 L (12-20) BUN 15 (9-16) mg/dL Creatinine 0.79 (0.5-1.4) mg/dL Estim Creat Clear Calc 82.0 Estimated GFR > 60 Random Glucose 120 H (60-115) mg/dL Calcium 9.5 (8.4-10.2) mg/dL Magnesium 2.2 (1.6-2.6) mg/dL Total Bilirubin 0.4 (0.0-1.0) mg/dL AST 24 (5-31) U/L ALT 17 (0-31) U/L Alkaline Phosphatase 73 (39-117) U/L Troponin I High Sens < 2.7 (<3.5-17.0) ng/L Total Protein 7.8 (6.5-8.0) g/dL Albumin 4.2 (3.5-5.0) g/dL Influenza Type A (PCR) NEGATIVE (Negative) Influenza Type B (PCR) NEGATIVE (Negative) RSV RNA Qual (PCR) NEGATIVE (Negative) SARS-CoV-2 RNA (RT-PCR) NEGATIVE (Negative) Independent Interpretation I performed an independent interpretation of an: EKG (77 beats per minute otherwise normal ECG without dysrhythmia, AV susie blocks or ST-T changes to suspect underlying ACS, my independent interpretation) Tests considered The following testing was considered but not selected: CT brain Chronic Conditions Patient?s care impacted by: Hypertension and Other (Reports solitary kidney since ) Discharge Plan Discharge Clinical Impression: Chest pain, precordial, Tingling of both upper extremities Patient Disposition: Home, Self-Care Additional Instructions: I am very much reassured by physical examination, the vital signs in the workup you have had including EKG, cardiac enzymes in the rest of the blood work, there was no evidence for any issues including as we have discussed because of the solitary kidney issues with a kidney function, continue to follow up with your PCP for outpatient results any other issues concerns come back to the ER Prescriptions: No Action levothyroxine [Euthyrox] 75 mcg tablet 75 mcg PO QAM Qty: 30 11RF cholecalciferol (vitamin D3) 50 mcg (2,000 unit) capsule 50 mcg PO DAILY 30 Days Qty: 30 11RF Citrucel 500 mg tablet 500 mg PO TID 30 Days Qty: 90 5RF hydrocortisone [Proctosol HC] 2.5 % cream with perineal applicator 1 appl DC BEDTIME PRN (Reason: hemorrhoids) Qty: 30 3RF citalopram 10 mg tablet 10 mg PO DAILY bupropion HCl 150 mg tablet extended release 24 hr 150 mg PO QAM lorazepam 0.5 mg tablet 0.5 mg PO BID PRN (Reason: Anxiety) omeprazole 40 mg capsule,delayed release(DR/EC) 40 mg PO DAILY albuterol sulfate 90 mcg/actuation HFA aerosol inhaler 1 inh inhalation Q4H PRN (Reason: Wheezing) citalopram 20 mg tablet 20 mg PO DAILY docusate sodium [Colace] 100 mg capsule 200 mg PO BEDTIME Qty: 60 5RF Citrucel 500 mg tablet 500 mg PO BID Qty: 60 5RF fluticasone propionate [Flonase Allergy Relief] 50 mcg/actuation spray,suspension 1 spray intranasal DAILY Rx Instructions: administer into each nostril (DME) CPAP Machine/Device Device See Rx Instructions .Route Rx Instructions: As directed carvedilol 3.125 mg tablet 3.125 mg PO BID triamcinolone acetonide 0.1 % cream 1 appl topical BID-TID Print Language: [place]
[2025-01-11 14:19] VITALS: BP 116/62; PULSE 82; RESP 15; TEMP 36.9; O2SAT 99
[2025-01-11 14:24] VITALS: BP 116/62; PULSE 82; RESP 15; TEMP 36.9; O2SAT 99
== END 2025-01-11 14:25 | disposition home or self-care (01) ==
PROVIDERS: Emergency Provider Emergency Medicine; PCP Internal Medicine
DX: R07.89 Other chest pain (principal); R51.9 Headache, unspecified; R20.0 Anesthesia of skin; Z79.899 Other long term (current) drug therapy; Z03.818 Encounter for observation for suspected exposure to other biological agents ruled out
CPT/HCPCS: 36415; 80053; 83735; 84484; 85025; 87637; 93005; 99283; 99284

== ENCOUNTER → 2025-01-11 10:56 | Outpatient (BNV) | payer OTHER, SELFPAY | PROVIDERS: Emergency Provider Emergency Medicine; PCP Internal Medicine; Visit Provider Internal Medicine Cardiovascular Disease | DX: R94.31 Abnormal electrocardiogram [ECG] [EKG] (principal); R51.9 Headache, unspecified | CPT/HCPCS: 93010 ==

== ENCOUNTER 2025-01-31 07:57 | Outpatient (AMB) | payer OTHER, SELFPAY ==
[2025-01-31 07:59] VITALS: BP 140/82; PULSE 69; O2SAT 98; BMI 35.8
--- NOTE | 2025-01-31 07:59 | MHC.OFFVIS ---
Vital Signs 01/31/25 07:59 Height 5 ft 1 in Weight 189 lb 6.033 oz BMI 35.8 BP 140/82 H Blood Pressure Location Lt brachial Position Sitting Pulse 69 Pulse Source Pulse Oximeter Pulse Oximetry (%) 98 Oxygen Delivery Method Room Air Intake Visit Reasons: Hypothyroidism Intake Note: Patient present today for Hypothyroidism office visit. 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 Required: No Accompanied by: Self / Same As Patient Allergies cinnamon (CINNAMON) Allergy (Intermediate, Verified 01/31/25 08:04) THROAT SWELLING soy Allergy (Intermediate, Verified 01/31/25 08:04) Itching calcium carbonate (From Tums) Allergy (Unknown, Verified 01/31/25 08:04) Unknown fluoxetine (From PROZAC) Allergy (Unknown, Verified 01/31/25 08:04) UNKNOWN Medication List - Last Reconciled 01/31/25 by Mirtha Angulo MD albuterol sulfate 90 mcg/actuation 1 inh inhalation Q4H PRN carvedilol 3.125 mg PO BID cholecalciferol (vitamin D3) 50 mcg PO DAILY 30 days citalopram 10 mg PO DAILY citalopram 20 mg PO DAILY CPAP (CPAP Machine/Device) As directed fluticasone propionate 50 mcg/actuation (Flonase Allergy Relief) 1 spray intranasal DAILY hydrocortisone 2.5% (Proctosol HC) 1 appl LA BEDTIME PRN levothyroxine (Euthyrox) 75 mcg PO QAM lorazepam 0.5 mg PO BID PRN omeprazole 40 mg PO DAILY triamcinolone acetonide 0.1% 1 appl topical BID-TID HPI Comments Details: 51 YO F with PMHx hypothyroidism coming in today for fup Prior HPI She has a long history of hypothyroidism (more than 20 years). TPO antibodies were negative, but TG antibodies were mildly positive. Currently She remains on Levothyroxine 75 mcg PO daily which she takes correctly. Has constipation, colace helps. No skin or hair changes. Periods are irregular, comes every 4-6 months, perimenopausal. Complaining of hot flahses. Not interested in HRT. No cold intolerance. Complaining of excessive tiredness. HAs been having weight fluctuations, lost 60 lbs with help of weight loss program but then gained it back, and most recently has been gaining weight weight gradually per patient TSH normal Jul 2023 She also had a multinodular thyroid. 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 Denies any family history of thyroid cancer. no history of head or neck radiation. Desnies any compressive symptom. Has never had biopsy Interval history Remains on levothyroxine 75 mcg daily Labs from December 2024 shows normal TSH at 1.18 Physical exam General: sitting comfortably in no acute distress HEENT: normocephalic/atraumatic, Neck: supple, symmetrical, no thyromegaly , no dorsocervical or supraclavicular fat pads Cardiac: normal heart sounds Pulm: normal breath sounds B/L, no added breath sounds Abd: not distended, no tenderness Extremities: no edema, no signs of myxedema 08/05/23 09:54 TSH 2.35 Laboratory Tests 01/02/25 11:37 TSH 1.18 Thyroid US: 02/27/19 Right Thyroid Lobe: 4.6 x 2.0 x 1.3 cm, volume 6.0 mL. Previously 5.2 x 1.6 x 1.7 cm, volume 7.4 mL. Parenchyma: The gland echotexture is heterogeneous. Thyroid vascularity is normal. Left Thyroid Lobe: 3.9 x 1.2 x 1.2 cm, volume 3.1 mL. Previously 4.6 x 1.6 x 1.3 cm, volume 5.2 mL. Parenchyma: The gland echotexture is heterogeneous. Thyroid vascularity is normal. Isthmus: 0.5 cm in maximum AP dimension. Previously 0.3 cm. RIGHT THYROID LOBE: There is 1 nodule seen. 1. Location: Inferior Size: 1.0 x 0.8 x 0.6 cm. Previous: Not seen, new. Nodule characteristics: Hypoechoic, irregular margin, no calcification and no intranodular flow. ISTHMUS: There is 1 nodule seen versus area of gland heterogeneity. 1. Location: Isthmus. Size: 0.4 x 0.4 x 0.3 cm. Previous: 1.1 x 0.2 x 0.6 cm. Nodule characteristics: Hypoechoic and cystic, smooth margin, no calcification and no intranodular flow. LEFT THYROID LOBE: No nodules. NODES: No lymphadenopathy is seen in the tissue surrounding the thyroid gland. [facility] Medical History Sleep apnea GERD (gastroesophageal reflux disease) Osteoarthritis of hands, bilateral Osteoarthritis of knees, bilateral Flexor tenosynovitis of finger Bilateral hand pain Depression ESR raised Polyarthralgia Vitamin D deficiency Multinodular thyroid Hypothyroidism Surgical History Hx of colonoscopy Hx of tooth extraction Hx of endoscopy Hx of bilateral breast reduction surgery Family History Father Prostate cancer Hypothyroidism Mother Kidney problem Stroke Brother Kidney problem Social History Household Members: None Household Members Other:: Lives alone Housing: House Are you a primary managed care coordinator to a significant other at home: No Do you presently have visiting nurse or other home services: Yes ([employer]) 75 years or older and lives alone: No Alcohol intake: never Patient Tobacco Use Status: Never used Tobacco e-Cigarette/Vaping Use: Never Used service: No Current occupational status: disabled Assessment & Plan Assessment & Plan (1) Hypothyroidism: Code(s): E03.9 - Hypothyroidism, unspecified Category: Medical Qualifiers: Hypothyroidism type: unspecified Qualified Code(s): E03.9 - Hypothyroidism, unspecified Plan: 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 She remains on Levothyroxine 75 mcg PO daily. Normal TSH from November 2024. She was previously advised to followup with her PCP however she feels uncomfortable with that plan and would like to follow up with us for hypothyroidism. Will arrange annual follow up . All of her questions were answered. She is in agreement with this plan of care. Plan: -Ordered TSH wih reflex free t4 to be done prior to follow up in 1 year -Continue levothyroxine 75 mcg daily prescribed by PCP -Annual follow up (2) Multinodular thyroid: Comment: Patient with a diffusely heterogenous gland consistent with giacomo's disease. Only pseudonodules, no true nodules present per previous notes. These do not contain an increased risk of thyroid cancer. No indication to repeat her thyroid US at this time, plan was to follow clinically. Exam unremarkable today, no compressive symptoms. Code(s): E04.2 - Nontoxic multinodular goiter Category: Medical Plan: see above. Plan See above Orders: Orders TSH reflex Free T4 1 Year E03.9 - Hypothyroidism, unspecified Coding Level of Care Code Est Pt Level 3 (54739) Diagnoses Hypothyroidism, unspecified type E03.9 Hypothyroidism type: unspecified Multinodular thyroid E04.2
--- OUTSIDE RECORDS SUMMARY | 2025-01-31 08:00 | XMS_ITS | Clinical Summary ---
Author Organization [employer] Address [address] [facility] [address] [place] [address] Care Team Providers Care Test Equipment Mechanic Name Role Phone Olamide Chandler MD Primary [...] 20 MG TABLET 023 Active sodium chloride ([place] Nasal [place]) 0.65 % nasal sprayIndications: COVID-19 1-2 sprays on each nostril every 2-3 hours as needed for nasal congestion 30 mL 1 023 Active loratadine (Claritin) 10 MG tablet [...] rash or itching 40 capsule 1 024 Active carvedilol (Coreg) 6.25 MG tabletIndications :Essential [...] to 10 days. 30 tablet 024 Active senna-docusate (Senokot S) 8.6-50 MG tabletIndications [...] time per week. 2 mL 025 Active cholecalciferol VITAMIN D (Vitamin D-3) 50 MCG (1999 UT) capsuleIndication s:Vitamin D deficiency TAKE 1 CAPSULE BY MOUTH DAILY 90 capsule 1 025 Active fluticasone (Flonase) 50 MCG/ACT nasal sprayIndications: Seasonal allergies SHAKE LIQUID AND USE 2 SPRAYS IN EACH NOSTRIL EVERY MORNING NEEDED FOR ALLERGIES 48 g 025 Active levothyroxine (Synthroid, Levoxyl) 75 MCG tabletIndications :Other specified hypothyroidism TAKE 1 TABLET BY MOUTH IN THE MORNING 90 tablet 1 025 Active omeprazole (PriLOSEC) [address] [...] 1 (one) time per week. 2 mL 2 025 Active cyclobenzaprine (Flexeril) 10 MG tabletIndications :Acute pain of right shoulder Take 1 tablet (10 mg) by mouth 3 times daily for 10 days. 30 tablet 023 2024 Discontinued(T herapy completed) omeprazole (PriLOSEC) [address] capsuleIndication s:Gastroesophagea l reflux disease, unspecified whether esophagitis present TAKE 1 CAPSULE BY MOUTH EVERY DAY BEFORE BREAKFAST 90 capsule 025 2024 Discontinued Zepbound 2.5 MG/0.5ML solution auto-injectorIndi cations:Class 3 severe obesity due to excess calories with serious comorbidity and body mass index (BMI) of 45.0 to 49.9 in adult INJECT 2.5 MG SUBCUTANEOUS WEEKLY 2 mL 025 2024 Discontinued(R eorder (will not trigger notification to Pharmacy)) Active Problems Problem Noted Date Diagnosed Date Stage 3 chronic kidney disea se, unspecified whether stage 3a or 3b CKD 01/18/2025 Anxiety with depression 01/18/2025 Assessment & Plan (01/18/2025 1:49 PM EDT): Stable Patient declines to do GAD7 and SBIRT Lightheadedness 01/02/2025 Assessment & Plan (01/02/2025 12:27 [...] 49.9 in adult 05/31/2024 Assessment & Plan (01/18/2025 1:47 PM EDT): Patient is being follow by mangle catcher I will c/w zepbound 2.5mg weekly, I will not go up on the dose patient is being losing weight she started at 243 and is now 190 since medication was started on 06/08/24 Assessment & Plan (08/30/2024 9:38 AM EDT): [...] AM EDT): It seems to be Poison Yudy or Sikes rash. We discuss about avoiding scratching, use topical poison yudy cream, clean and wash clothes, linens with [...] instructed to report back Meningioma, cerebral 09/08/2022 Assessment & Plan (01/18/2025 1:48 PM EDT): MRI ordered today for monitoring last one done 10/2023 Visual impairment 09/07/2022 Vitamin D deficiency 09/07/2022 Abnormal gait 09/01/2022 Atypical chest pain 09/01/2022 Change in mole 09/01/2022 Dyspnea on exertion 09/01/2022 Excessive cerumen in ear canal 09/01/2022 Joint pain in both hands 09/01/2022 Multiple joint pain 09/01/2022 Seasonal allergies 09/01/2022 Essential hypertension 08/02/2022 Assessment & Plan (01/18/2025 1:45 PM EDT): I advised: - Aerobic exercise to reduce BP. Initial [...] consulting health care provider Assessment & Plan (01/02/2025 12:25 PM EDT): [...] Encounters Date Type Department Care Team Description 01/18/2025 11:30 AM EDT Office Visit [facility] [address] [place] [phone] Olamide Chandler MD Prediabetes (Primary Dx); Essential hypertension; Stage 3 chronic kidney disease, unspecified whether stage 3a or 3b CKD (CMS/HCC); Meningioma, cerebral (CMS/HCC); Anxiety with depression; Class 3 severe obesity due to excess calories with serious comorbidity and body mass index (BMI) of 45.0 to 49.9 in adult; Dietary counseling; Exercise counseling 01/18/2025 Travel 01/17/2025 Telephone [facility] [address] [place] [phone] Olamide Chandler MD Chart Prep 01/15/2025 Refill [facility] [address] [place] [phone] Olamide Chandler MD Gastroesophageal reflux disease, unspecified whether esophagitis present 01/11/2025 Orders Only GENERIC EXTERNAL DATA DEPARTMENT Provider, Generic External Data 01/11/2025 Travel 01/08/2025 Patient Outreach [address] [address] Olamide Chandler MD Pre-visit Planning (SDOH screening negative and tobacco screening negative) 01/07/[address] [address] Olamide Chandler MD Med Refill 01/02/2025 11:00 AM EDT Office Visit [address] [address] Brittney Graham MD Lightheadedness (Primary Dx); Essential hypertension; Acquired hypothyroidism 01/02/2025 Travel 01/01/2025 Travel 12/31/[address] [address] Olamide Chandler MD Nurse Triage 12/04/[address] [address] Olamide Chandler MD Med Refill 12/04/2024 Orders Only [facility] [address] [place] [address] Olamide Chandler MD 12/03/2024 Refill [facility] [address] [place] [phone] Olamide Chandler MD Class 3 severe obesity due to excess calories with serious comorbidity and body mass index (BMI) of 45.0 to 49.9 in adult 11/28/2024 Telephone [facility] [address] [place] [address] Olamide Chandler MD Prior Authorization (/) 11/27/2024 Refill [facility] [address] [place] [address] Olamide Chandler MD Class 3 severe obesity due to excess calories with serious comorbidity and body mass index (BMI) of 45.0 to 49.9 in adult 11/23/2024 Telephone [facility] [address] [place] [address] Olamide Chandler MD Prior Authorization (CCA PA: Zepbound 2.5 mg) 11/20/2024 Refill [facility] [address] [place], [place] [phone] Olamide Chandler MD Other specified hypothyroidism 11/17/2024 Refill [facility] [address] [place], [place] [phone] Olamide Chandler MD Vitamin D deficiency; Seasonal allergies 11/05/2024 Refill [facility] [address] [place], [place] [phone] Olamide Chandler MD Class 3 severe obesity due to excess calories with serious comorbidity and body mass index (BMI) of 45.0 to 49.9 in adult 11/03/2024 Refill [facility] [address] [place], [place] [phone] Olamide Chandler MD Class 3 severe obesity [...] 10:15 AM EDT Sexual Orientation Lesbian or Rmairez 04/19/2022 10 :15 AM EDT Last Filed Vital Signs Vital Sign Reading Time Taken Comments Blood Pressure 132/84 01/18/2025 11:31 AM EDT Pulse 72 01/18/2025 11:31 AM EDT Temperature 36.1 C (97 F) 01/18/2025 11:31 AM EDT Respiratory Rate 14 01/18/2025 11:31 AM EDT Oxygen Saturation 97% 06/08/2024 9:34 AM EST Inhaled Oxygen Concentration - - Weight 86.5 kg (190 lb 9.6 oz) 01/18/2025 11:31 AM EDT Height 154.9 cm (5' 1 ) 01/18/2025 11:31 AM EDT Body Mass Index 36.01 01/18/2025 11:31 AM EDT Plan of Treatment Health Maintenance Due Date Last Done Comments CT Colonography 1971 FIT DNA/Cologuard 1970 FIT 1970 FOBT 1970 HIV Screening 1970 Sigmoidoscopy 1970 Hepatitis C Screening 10/21/1989 COVID-19 Vaccine ( season) 2024 10/28/2023, 06/22/2021, 09/10/2020, Additional history exists Depression Monitoring 09/09/2024 03/12/2024, 024 Influenza Vaccine (#1) 2025 , 03/12/2022, 04/08/2021, Additional history exists Mammogram 11/14/2025 11/14/2024, 09/18, 09/15/2023, Additional history exists Tobacco Screening 01/02/2026 01/02/2025 SDOH Screening 01/08/2026 01/08/2025 Disability Screening 01/11/2026 01/11/2025 Alcohol/Substance Use Screening 01/18/2026 01/18/2025 Diabetes: Hemoglobin A1C 01/18/2026 025, 03/29/2024, 08/18/2023, Additional history exists Colonoscopy 04/12/2027 04/12/2022 Colorectal [...] Procedure Name Priority Date/Time Associated Diagnosis Comments MR BRAIN WO CONTRAST Routine 01/24/2025 Meningioma, cerebral (CMS/HCC) POCT GLYCATED HEMOGLOBIN, TOTAL Routine 01/18/2025 12:37 PM EDT Prediabetes POCT GLUCOSE Routine 01/18/2025 12:37 PM EDT Prediabetes HIGH SENSITIVITY TROPONIN I Routine 01/11/2025 11:20 [...] VIEW LEFT Routine 11/14/2024 10:30 AM EDT LIPID PANEL WITH REFLEX TO DIRECT LDL Routine 03/29/2024 9:50 AM EDT Essential hypertension IMAGE-GUIDED PAP W/AGE BASED SCR,W/CT/NG/TRICH Routine 10/29/2022 11:29 AM EDT Encounter for Papanicolaou smear for cervical cancer screening HM COLONOSCOPY Routine 04/12/2022 10:07 PM EDT from Last 3 Months or Most Recently Relevant to Health Maintenance Results * MR Brain w/o Contrast (01/24/2025) Anatomical Region Laterality Modality Brain Magnetic Resonan ce us Olamide Stevens MD IMG MRI PROCEDURES Fi nal Result * POCT HGB A1C (01/18/2025 12:37 PM EDT) [facility] Hemoglobin A1C 5.4 4.0 - 5.7 % Blood 01/18/2025 12:3 7 PM EDT Result [facility] Olamide Stevens MD POINT OF CARE TEST EN TER/EDIT ORDERABLES Final Result * POCT Glucose (01/18/2025 12:37 PM EDT) [facility] Glucose Blood, POC 136 60 - 200 mg/dL Blood Capillary blood specimen / Unknown 01/18/2025 12:37 PM EDT Olamide Stevens MD POINT OF CARE TEST EN TER/EDIT ORDERABLES Final Result * High Sensitivity Troponin I (01/11/2025 11:20 AM EDT) [facility] TROPONIN I HIGH SENSITIVITY <2.7 <3.5 - 17.0 ng/L [facility] Comment:The [place]istan high sens itivity Troponin-I results should beused in conjunction with other diagnostic information suchas ECG, clinical observations and information, and patientsymptoms to aid in the diagnosis of [place]. 01/11/2025 11:2 0 AM EDT 01/11/2025 11:23 AM EDT Result [facility] Generic External Data Provider LAB BLOOD ORDERAB LES Final Result [facility] [address] [place] [phone] * SARS-CoV-2 RNA, Influenza A/B, and RSV RNA, Ql NAAT (01/11/2025 11:20 AM EDT) [facility] Influenza A PCR NEGATIVE Negative [facility] Influenza B PCR NEGATIVE Negative [facility] Resp Syncy Virus RNA Qual PCR NEGATIVE Negative [facility] SARS COV2 PCR NEGATIVE Negative [facility] Comment:All test results mus t [...] use by authorized laboratories.Testing performed on the [facility] GeneXpert utilizingreal-time RT-PCR.All SARS CoV2 and positive influenza A/B results arereported to [facility]. 01/11/2025 11:2 0 AM EDT 01/11/2025 11:23 AM EDT Generic External Data Provider LAB MICROBIOLOGY - GENERAL ORDERABLES Final Result [facility] [address] [place] [phone] * (ABNORMAL) CBC auto differential (01/11/2025 11:20 AM EDT) White Blood Count 10.0 4.8 - 10.8 X10*3/uL [facility] Red Blood Count 4.67 4.20 - 5.50 X10*6/uL [facility] Hemoglobin 13.6 12.0 - 16.0 g/dl [facility] Hematocrit 41.0 37.0 - 47.0 % [facility] Mean Corpuscular Volume 87.8 80.0 - 98.0 fL [facility] Mean Corpuscular Hemoglobin 29.1 27.0 - 33.0 pg [facility] Mean Corpuscular HGB Conc 33.2 31.0 - 35.0 g/dl [facility] Red Cell Distribution Width 12.5 11.0 - 16.0 % [facility] Platelet Count 310 160 - 400 X10*3/uL [facility] Mean Platelet Volume 9.7 9.4 - 12.3 fL [facility] Neutrophils Percent Auto 80.0(H) 45 - 73 % [facility] Imm Gran Pct Auto 0.3 0.0 - 0.4 % [facility] Lymphocytes Percent Auto 13.3(L) 20 - 40 % [facility] Monocytes Percent Auto 5.2 2 - 11 % [facility] Eosinophils Percent Auto 0.6 0 - 4 % [facility] Basophils Percent Auto 0.6 0 - 2 % [facility] NRBC Pct Auto 0.0 0.0 - 0.2 /100WBC [facility] Neutrophils Absolute Auto 8.0 2.0 - 8.3 x10*3/uL [facility] Imm Gran Abs Auto 0.03 0.00 - 0.03 X10*3/uL [facility] Lymphocytes Absolute Auto 1.3 1.2 - 4.9 X10*3/uL [facility] Monocytes Absolute Auto 0.5 0.1 - 1.2 X10*3/uL [facility] Eosinophils Absolute Auto 0.1 0.0 - 0.4 X10*3/uL [facility] Basophils Absolute Auto 0.1 0.0 - 0.2 X10*3/uL [facility] NRBC Abs Auto 0.000 0.0 - 0.012 X10*3/uL [facility] 01/11/2025 11:2 0 AM EDT 01/11/2025 11:23 AM EDT us Generic External Data Provider LAB BLOOD ORDERAB LES Final Result [facility] [address] [place] [phone] * Magnesium (01/11/2025 11:20 AM EDT) Magnesium 2.2 1.6 - 2.6 mg/dL [facility] 01/11/2025 11:2 0 AM EDT 01/11/2025 11:23 AM EDT us Generic External Data Provider LAB BLOOD ORDERAB LES Final Result [facility] [address] [place] [phone] * (ABNORMAL) Comprehensive Metabolic Panel (01/11/2025 11:20 AM EDT) Sodium 140 135 - 145 mmol/L [facility] Potassium 4.1 3.3 - 5.1 mmol/L [facility] Chloride 104 96 - 108 mmol/L [facility] Carbon Dioxide 30(H) 22 - 29 mmol/L [facility] Anion Gap 10(L) 12 - 20 [facility] Urea Nitrogen (BUN) 15 9 - 16 mg/dL [facility] Creatinine, Serum 0.79 0.5 - 1.4 mg/dL [facility] Creatinine Clr Calc Pharmacy 82.0 [facility] Comment:Provided height and weight: 154.94 cm,86.183 kg.eGFR (calculated from the MDRD study equation) and eCrCl(calculated from the Cockcroft-Gault equation) are based ondifferent parameters and may not yield comparable results.If eCrCl result is absurd, please check patient'sheight/weight. Estimated Glomerular Filt Rate >60 [facility] Comment:Chronic Kidney Disea se: Estimated GFR < 60 mL/min/1.58o2Lnuosm Kidney Disease: Estimated GFR < 15 mL/min/1.73m2 Glucose 120(H) 60 - 115 mg/dL [facility] Calcium 9.5 8.4 - 10.2 mg/dL [facility] Bilirubin, Total 0.4 0.0 - 1.0 mg/dL [facility] Aspartate Amino Transferase 24 5 - 31 U/L [facility] Alanine Aminotransferase 17 0 - 31 U/L [facility] Total Protein 7.8 6.5 - 8.0 g/dL [facility] Albumin Level 4.2 3.5 - 5.0 g/dL [facility] Alkaline Phosphatase 73 39 - 117 U/L [facility] 01/11/2025 11:2 0 AM EDT 01/11/2025 11:23 AM EDT us Generic External Data Provider LAB BLOOD ORDERAB LES Final Result Performing Organization Address [facility]/ZIP Co de Phone Number [facility] [address] [place] [phone] * TSH with Reflex to Free T4 (01/02/2025 11:37 AM EDT) TSH reflex Free T4 1.18 0.32 - 4.0 uIU/mL [facility] Blood 01/02/2025 11:3 7 AM EDT 01/02/2025 1:47 PM EDT us Brittney Graham MD LAB BLOOD ORDERABLES Fin al Result Performing Organization Address [facility]/ZIP Co de Phone Number [facility] [address] [place] [phone] * (ABNORMAL) Basic Metabolic Panel (01/02/2025 11:37 AM EDT) Sodium 138 135 - 145 mmol/L [facility] Potassium 3.9 3.3 - 5.1 mmol/L [facility] Chloride 104 96 - 108 mmol/L [facility] Carbon Dioxide 27 22 - 29 mmol/L [facility] Anion Gap 11(L) 12 - 20 [facility] Urea Nitrogen (BUN) 9 9 - 16 mg/dL [facility] Creatinine, Serum 0.83 0.5 - 1.4 mg/dL [facility] Estimated Glomerular Filt Rate >60 [facility] Comment:Chronic Kidney Disea se: Estimated GFR < 60 mL/min/1.44n0Vujzwm Kidney Disease: Estimated GFR < 15 mL/min/1.73m2 Glucose 116(H) 60 - 115 mg/dL [facility] Calcium 9.3 8.4 - 10.2 mg/dL [facility] Blood Venous blood specimen / Unknown 01/02/2025 11:37 AM EDT 01/02/2025 1:47 PM EDT Brittney Graham MD LAB BLOOD ORDERABLES Fin al Result [facility] [address] [place] [phone] * BI US Breast Limited Left (11/14/2024 11:00 AM EDT) Anatomical Region Laterality Modality Breast Left Ultrasound 11/14/2024 11:0 0 AM EDT Narrative 11/14/2024 3:08 PM EDT [address] [place] [address] Ultrasound Report Signed Patient: Laisha Ye I MR#: M [id number] : 1970 Acct:[id number] Age/Sex: 54 / F ADM Date: 11/14/24 Loc: HO.MAMMO Attending Dr: Olamide Stevens MD Ordering Physician: Olamide Chandler MD Date of Service: 11/14/24 Procedure(s): US breast LT limited mamm only Accession Number(s): [id number] cc: Olamide Chandler MD EXAMINATION: MM DIAGNOSTIC [...] 11/14/24 1505 DD/ 1100 TD/TT: 11/14/24 1100 Manager Rehab: Procedure Note Donotuseinterpreter, Image - 11/14/20[facility] [address] [place] [address] Ultrasound Report Signed Patient: Laisha Ye [facility]#: [id number] : 1970Acct:[id number] Age/Sex: 54 / FADM Date: 11/14/24 Loc: HO.MAMMO Attending Dr: Olamide Stevens MD Ordering Physician: Olamide Chandler MD Date of Service: 11/14/24 Procedure(s): US breast LT limited mamm only Accession Number(s): [id number] cc: Olamide Chandler MD EXAMINATION: MM DIAGNOSTIC [...] 11/14/24 1505 DD/ 1100 TD/TT: 11/14/24 1100 Manager Rehab: us Olamide Stevens MD IMG US PROCEDURES Fin al Result * BI Mammogram Diagnostic Tomosynthesis added left (11/14/2024 10:30 AM EDT) Anatomical Region Laterality Modality Breast Left Mammography 11/14/2024 10:3 0 AM EDT Narrative 11/14/2024 3:08 PM EDT [facility] [address] [place] [address] Mammography Report Signed Patient: Laisha Ye I MR#: Kasie [id number] : 1970 Acct:[id number] Age/Sex: 54 / F ADM Date: 11/14/24 Loc: HO.MAMMO Attending Dr: Olamide Stevens MD Ordering Physician: Olamide Chandler MD Results: 3.6MProbably Benign Finding - Short 6 M F/U Suggested Date of Service: 11/14/24 Follow Up: 6 Month F/U Procedure(s): MM tomosynthesis added views L Accession Number(s): [id number] cc: Olamide Chandler MD EXAMINATION: MM DIAGNOSTIC [...] 11/14/24 1505 DD/ 1030 TD/TT: 11/14/24 1100 Manager Rehab: Procedure Note Donotuseinterpreter, Image - 11/14/2024 [facility] [address] [place] [address] Mammography Report Signed Patient: Laisha Ye IMR#: M [id number] : 1970Acct:[id number] Age/Sex: 54 / FADM Date: 11/14/24 Loc: HO.MAMMO Attending Dr: Olamide Stevens MD Ordering Physician: Olamide Chandler MD Results: 3.6MProbably Benign Finding - Short 6 M F/U Suggested Date of Service: 11/14/24Follow Up: 6 Month F/U Procedure(s): MM tomosynthesis added views L Accession Number(s): [id number] cc: Olamide Chandler MD EXAMINATION: MM DIAGNOSTIC [...] 11/14/24 1505 DD/ 1030 TD/TT: 11/14/24 1100 Manager Rehab: Olamide Stevens MD IMG BI PROCEDURES Fin al Result * (ABNORMAL) Lipid Panel with Reflex to Direct LDL (03/29/2024 9:50 AM EDT) Triglycerides 89 <150 mg/dL [facility] Comment:Desirable Triglyceri de: less than 150 mg/dLBorderline High Triglyceride 150-199 mg/dLHigh Triglyceride: 200-499 mg/dLVery High Triglyceride: greater than or equal to 5OO mg/dL Cholesterol 168 <200 mg/dL [facility] Comment:Desirable Cholestero l: less than 200 mg/dLBorderline High Cholesterol: 200-239 mg/dLHigh Cholesterol: greater than 239 mg/dL LDL Cholesterol Calculated 107(H) <100 mg/dL [facility] Comment:Desirable LDL: less than 100 mg/dLNear Optimal/Above Optimal LDL: 110- 129 mg/dLBorderline High LDL: 130-159 mg/dLHigh LDL: 160-189 mg/dLVery High LDL: greater than or equal to 190 mg/dL HDL Cholesterol 44 >40 mg/dL [facility] Comment:Desirable HDL: great er than 40 mg/dL Note: This HDL assay may give artificially low results in patients with liver disease. Blood 03/29/2024 9:50 AM EDT 03/29/2024 11:08 AM EDT Olamide Stevens MD LAB BLOOD ORDERABLES Final Result [facility] [address] [place] [phone] * Image-Guided Pap with Age-Based Screening??with CT/NG,??Trichomonas (10/29/2022 11:29 AM EDT) Comment [facility] Comment: This order for age-based cervical cancer and STI screening follows ACOG guidelines(PB 168, 140, LXT122). See individual assays for performing site location. Clinical Information: 52 Y/O F NO PREVIOUS ABNORMALITY C [employer] LMP: NONE GIVEN [employer] Prev. PAP: NONE GIVEN [facility] Prev. BX: NONE GIVEN [email or web address] SOURCE: None given EndPlayt Statement Of Adequacy: [employer] Comment: Satisfactory for evaluation. Endocervical/transformation zone component absent. Interpretation/Re sult: Negative for intraepithelial lesion or malignancy. [employer] COMMENT: This Pap test has been evaluated with computer assisted technology. [facility] Enterprise Cloud Architect: Amalia aihuishout Comment: EXJ, CT(ASCP) CT Screening Location: [address] [address] (Always Message) [facility] [employer] Comment: EXPLANATORY NOTE: The Pap is a [...] HPV nRNA E6/E7 Not Detected Not Detected [employer] Comment: Methodology: Retail Department Manager-Mediated Amplification This assay detects E6/E7 viral messenger RNA (mRNA) from 14 high-risk HPV types (16,18,31,33,35,39,45,51,52,56,58,59,66,68). Cervical sources are required for HPV testing. If a vaginal source from a patient who has had a total hysterectomy with removal of cervix was submitted, please contact the testing laboratory for alternative testing options. For additional information, please refer to http://Massive.Revelens/faq/PPM606n4 (This link if provided for information/ educational purposes only.) Chlamydia trachomatis RNA, TMA, Urogenital NOT DETECTED NOT DETECTED [employer] Neisseria gonorrhoeae RNA, TMA, Urogenital NOT DETECTED NOT DETECTED [employer] (Always Message) [facility] [employer] Comment: The analytical performance characteristics of this assay, when used to test SurePath(TM) specimens have been determined by [facility]. The modifications have not been cleared or approved by the FDA. This assay has been validated pursuant to the CLIA regulations and is used for clinical purposes. For additional information, please refer to [email or web address]/faq/AJN716 (This link is being provided for information/ educational purposes only.) Trichomonas vaginalis, QL, TMA, PAP Vial NOT DETECTED NOT DETECTED [employer] Comment: The analytical performance characteristics of this assay have been determined by [facility]. The modifications have not been cleared or approved by the FDA. This assay has been validated pursuant to the CLIA regulations and is used for clinical purposes. For additional information, please refer to [email or web address].Revelens/ faq/Trichomonastma (This link is being provided for information/ educational purposes only.) Pap Vial 10/29/2022 11:2 9 AM EDT 10/31/2022 4:55 PM EDT us Olamide Stevens MD LAB CYTOLOGY ORDERABL ES Final Result [facility] [address], [place] [address] [email or web address] [address] [place] [phone] * Hm Colonoscopy (04/12/2022 10:07 PM EDT) us Historical Provider HEALTH MAINTENANCE Final Result from Last 3 Months or Most Recently Relevant to Health Maintenance Insurance [facility] ONE CARE < 66 [address] [place] [id number] Care Teams Test Equipment Mechanic Relationship Specialty Start Date End Date Olamide Chandler MD [address] [place] [address] PCP - General Family Medicine 07/28/20
--- OUTSIDE RECORDS SUMMARY | 2025-01-31 08:00 | XMS_ITS | Clinical Summary ---
Author Organization [facility] Address [address] [place] [address] Phone Care Team Providers Care Sewing Pattern Layout Technician Name Role Phone Unavailable Primary Care Provider Unavailabl e Encounters Date Type Department Care Team Description 01/24/2025 11:54 AM EDT - 01/24/2025 11:59 PM EDT Hospital Encounter [facility] MRI [address] [place] [address] Meningioma (CMS/HCC V24, CMS/HCC V28) Discharge Disposition: Home or Self Care from Last 3 Months Social History Tobacco Use Types Packs/Day Years Used Date Smoking Tobacco: Never Assessed Comments Unknown Sex and Gender Information Value Date Recorded Sex Assigned at Not on file Legal Sex Female 12:25 PM EST Gender Identity Not on file Sexual Orientation Not on file Plan of Treatment Health Maintenance Due Date Last Done Comments Breast Cancer Screening 1971 Cervical Cancer Screening: Pap Smear 10/21/1992 Cholesterol Screening (Lipid Panel) 08/26/2023 Colorectal Cancer Screening: Colonoscopy 08/26/2023 HIV Screening 08/26/2023 Hepatitis C Screening 08/26/2023 Social Influencers of Health Screening 08/26/2023 COVID-19 Vaccine ( season) 2024 10/28/2023, 06/22/2021, 09/10/2020, Additional history exists Depression Screening 06/20/2024 Influenza Vaccine (#1) 2025 , 03/12/2022, 04/08/2021, Additional history exists Hypertension/CHF/CAD Annual BMP Blood Test 01/11/2026 01/11/2025, 01/02/2025 DTaP,Tdap,and Td Vaccines (9 - Td or Tdap) 05/31/2034 05/31/2024, 03/13/2014, 10/11/2007, Additional history exists MMR Vaccines Completed 08/12/1978, 01/28/1978 IPV Vaccines Completed 09/10/1983, 07/21, 08/03/1978, Additional [...] to complete this topic RSV Immunization Patients Under 20 months Aged Out No longer eligible based on patient's age to complete this topic Varicella Vaccines Aged Out No longer eligible based on patient's age to complete this topic Procedures Procedure Name Priority Date/Time Associated Diagnosis Comments MR BRAIN WO CONTRAST Routine 01/24/2025 12:31 PM EDT Meningioma ([facility] V24, [facility] V28) from Last 3 Months Results * MR Brain wo Contrast (01/24/2025 12:31 PM EDT) Anatomical Region Laterality Modality Head and Neck Magnetic Resonan ce 01/25/2025 4:09 PM EDT Impressions 01/25/2025 4:18 PM EDT Elongated mass arising from the outer table of the high left parietal calvarium, stable dating back to a CT obtained in January 2012, 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 -------- FINAL REPORT -------- Dictated By: Farhan Chapman Dictated Date: 01/25/2025 16:09 ET Assigned Physician: Farhan Chapman Reviewed and Electronically Signed By: Farhan Chapman Signed Date: 01/25/2025 16:18 ET Workstation ID: [id number] Transcribed By: Self Edit Transcribed Date: 01/25/2025 16:09 ET Narrative 01/25/2025 4:18 PM EDT PROCEDURE: Noncontrast MRI of the brain. HISTORY: Follow-up meningioma. COMPARISON: 11/07/2023. CT dated 02/10/2012. TECHNIQUE: Multiplanar multisequence MRI of the brain without intravenous contrast administration. FINDINGS: BRAIN: No diffusion abnormality. No mass or extra-axial fluid collection. No hydrocephalus. The major intracranial flow voids are preserved. Age commensurate ventricles and sulci. ORBITS: Normal. SINUSES/MASTOIDS: There is a small mucous retention cyst in the posterior right maxillary antrum. CALVARIUM: Stable elongated mass which appears to arise from the outer table of the high left posterior parietal calvarium. The mass measures 5.2 x 1.4 x 4.9 cm. It is heterogeneously hyper and hypointense on T2-weighted imaging and is diffusely hypointense on T1-weighted imaging. OTHER: The visualized skull base soft tissues are normal. Partially visible degenerative changes of the cervical spine. Procedure Note Farhan Chapman MD - 01/25/2025 PROCEDURE: Noncontrast MRI of the brain. HISTORY: Follow-up meningioma. COMPARISON: 11/07/2023. CT dated 02/10/2012. TECHNIQUE: Multiplanar multisequence MRI of the brain without intravenouscontrast administration. FINDINGS: BRAIN: No diffusion abnormality. No mass or extra-axial fluid collection.No hydrocephalus. The major intracranial flow voids are preserved. Agecommensurate ventricles and sulci. ORBITS: Normal. SINUSES/MASTOIDS: There is a small mucous retention cyst in the posteriorright maxillary antrum. CALVARIUM: Stable elongated mass which appears to arise from the outertable of the high left posterior parietal calvarium. The mass measures5.2 x 1.4 x 4.9 cm. It is heterogeneously hyper and hypointense onT2-weighted imaging and is diffusely hypointense on T1-weighted imaging. OTHER: The visualized skull base soft tissues are normal. Partiallyvisible degenerative changes of the cervical spine. IMPRESSION: Elongated mass arising from the outer table of the high left parietalcalvarium, stable dating back to a CT obtained in January 2012, againlikely fibrous dysplasia. -------- FINAL REPORT -------- Dictated By: Farhan Chapman Dictated Date: 01/25/2025 16:09 ET Assigned Physician: Farhan Chapman Reviewed and Electronically Signed By: Farhan Chapman Signed Date: 01/25/2025 16:18 ET Workstation ID: [id number] Transcribed By: Self Edit Transcribed Date: 01/25/2025 16:09 ET us Olamide Stevens MD IMG MRI PROCEDURES Fi nal Result from Last 3 Months
--- OUTSIDE RECORDS SUMMARY | 2025-01-31 08:00 | XMS_ITS | Clinical Summary ---
Author Organization [facility], Address [address] [place] [address] [place] [address] Phone Care Team Providers Care Electronic Data Interchange Specialist Name Role Phone Olamide Chandler MD Primary Care Provide r Allergies Active Allergy Reactions Criticality Noted Date Comments Calcium Carbonate 09/11/2020 Other reaction(s): Hives Cinnamon Other (see comments) 03/11/2020 Fluoxetine Other (see comments) 03/11/2020 Lisinopril 10/28/2023 Soybean Oil 01/01/2021 Sumatriptan 03/11/2020 [...] 20 MG TABLET 2 Active carvedilol (COREG) 12.5 MG tablet Take 12.5 mg by mouth in the morning and 12.5 mg in the evening. Take with meals. Active hydrOXYzine (ATARAX) 10 MG tablet 4 Active Tirzepatide-Dale ght Management (Zepbound) 2.5 MG/0.5ML solution auto-injector Inject 2.5 mg under the skin per week Active Active Problems Problem Noted Date Diagnosed Date Severe obesity 05/31/2024 Chronic kidney disease, stage 2 (mild) 4 Contact dermatitis caused by urushiol from [place] poison james 12/28/2023 Bilateral lower leg edema 10/27/2023 Chronic kidney disease stage 3 03/11/2020 Hypothyroidism 03/11/2020 Renal agenesis 03/11/2020 Prediabetes 03/11/2020 Encounters Date Type Department Care Team Description 01/08/2025 Office Communication [facility] [address] [place] [phone] Mahendra Medel DO 01/07/2025 Documentation Only [facility] [address] [place] [address] Alisha Briceno 01/03/2025 3:00 PM EDT Office Visit [facility] [address] [place] [address] Mahendra Medel DO Chronic kidney disease, stage 2 (mild) (Primary Dx); Renal agenesis <Unilateral>; Hypertension 12/31/2024 Documentation Only [facility] [address] [place] [address] Mahendra Medel DO 12/31/2024 Office Communication [facility] [address] [place] [address] Kurtis Jauregui MA from Last 3 Months Immunizations Immunization Administration Dates Next Due Hepatitis A 12/07/2017,11/05/2015 Hepatitis B 12/07/2017,01/17/2017,03/03/2016 Influenza (IM) Preservative Free 03/12/2024,01/20,02/08/2015 Influenza, Quadrivalent, Pre servative Free 03/12/2022,04/08/2021,03/14/2019,2017,03/18/2016 Pneumococcal Conjugate Pcv 20 10/28/2023 Shingrix 04/13/2024 Tdap 05/31/2024,03/13/2014 Family History Medical History Relation Comments Diabetes [...] Sign Reading Time Taken Comments Blood Pressure 124/84 01/03/2025 3:05 PM EDT Pulse 78 01/03/2025 3:05 PM EDT Temperature - - Respiratory Rate - - Oxygen Saturation - - Inhaled Oxygen Concentration - - Weight 85.3 kg (188 lb) 01/03/2025 3:05 PM EDT Height 154.9 cm (5' 1 ) 11/08/2018 12:00 PM EDT Body Mass Index 35.52 11/08/2018 12:00 PM EDT Plan of Treatment Upcoming Encounters Date Type Department Care Team (Late st Contact Info) Description 01/02/2026 3:00 PM EDT Office Visit [facility], [address] [place] [address] Medel Mahendra, DO [address] [place] [phone] Health Maintenance Due Date Last Done Comments Breast Cancer Screening 1970 Hepatitis B Vaccine (1 of 3 - 19+ 3-dose series) 10/21/1990 12/07/2017, 01/17/2017, 03/03/2016 Colorectal Cancer Screening: Annual FOBT 10/21/2020 Colorectal Cancer Screening: Colonoscopy 10/21/2020 Colorectal Cancer Screening: Sigmoidoscopy 10/21/2020 Influenza Vaccine (#1) 2025 4, 03/12/2022, 04/08/2021, Additional history exists Pneumococcal Vaccine: 50+ Years Completed 4 Pneumococcal Vaccine: Peds ( 0 to 5 Years) and At-Risk Patients (6 to 49 Years) Discontinued 10/28/2023 Procedures Procedure Name Priority Date/Time Associated Diagnosis Comments VITAMIN B12 Routine 01/04/2025 10:15 AM EDT Chronic kidney disease, stage 2 (mild) Renal agenesis <Unilateral> Hypertension VITAMIN D 25 HYDROXY Routine 01/04/2025 10:15 AM EDT Chronic kidney disease, stage 2 (mild) Renal agenesis <Unilateral> Hypertension MAGNESIUM Routine 01/04/2025 10:15 AM EDT Chronic kidney disease, stage 2 (mild) Renal agenesis <Unilateral> Hypertension URINE ALBUMIN / CREATININE RATIO Routine 01/01/2025 9:37 AM EDT Chronic kidney disease, stage 2 (mild) Renal agenesis <Unilateral> RENAL FUNCTION PANEL Routine 01/01/2025 9:37 AM EDT Chronic kidney disease, stage 2 (mild) Renal agenesis <Unilateral> from Last 3 Months Results * Vitamin D 25 hydroxy (01/04/2025 10:15 AM EDT) Vitamin D, 25-OH, Total 64.9 30.0 - 100.0 ng/mL [facility] Comment: Vitamin D deficiency has been defined by the [place] of Medicine and an Endocrine Society practice guideline as a level of serum 25-OH vitamin D less than 20 ng/mL (1,2). The Endocrine Society went on to further define vitamin D insufficiency as a level between 21 and 29 ng/mL (2). 1. IOM ([place] of Medicine). 2010. Dietary reference intakes for calcium and D. [place]: The National Academies Press. 2. Maddie SORENSON, Derrek DAS, Josie FAULKNER, et al. Evaluation, treatment, and prevention of vitamin D deficiency: an Endocrine Society clinical practice guideline. JCEM. 2010; 96(7):1911-30. Blood Venous blood / Unknown 01/04/2025 10:15 AM EDT 01/04/2025 Mahendra Medel DO LAB BLOOD ORDERABLES Final Resu lt [facility] [address] [place] [address] * Magnesium (01/04/2025 10:15 AM EDT) Magnesium 2.0 1.6 - 2.3 mg/dL [facility] Blood Venous blood / Unknown 01/04/2025 10:15 AM EDT 01/04/2025 Mahendra Yañezry LAB BLOOD ORDERABLES Final Resu lt [facility] [address] [place] [address] * Vitamin B12 (01/04/2025 10:15 AM EDT) Vitamin B-12 745 232 - 1,245 pg/mL [facility] Blood Venous blood / Unknown 01/04/2025 10:15 AM EDT 01/04/2025 [facility] LAB BLOOD ORDERABLES Final Resu lt Performing Organization Address City/[facility] Co de Phone Number [facility] [address] [place] [address] * Urine Albumin / Creatinine Ratio (01/01/2025 9:37 AM EDT) Pathologist [facility] Creatinine, Ur 40.8 Not Estab. mg/dL [facility] Albumin, Urine <3.0 Not Estab. ug/mL [facility] Albumin/Creatin ine Ratio <7 0 - 29 mg/g creat [facility] Comment: Normal: 0 - 29 Moderately increased: 30 - 300 Severely increased: >300 Urine Urine specimen obtained by clean catch procedure / Unknown 01/01/2025 9:37 AM EDT 01/01/2025 Mahendra [facility] LAB URINE ORDERABLES Final Resu lt Performing Organization Address City/[facility] Co de Phone Number [facility] [address] [place] [address] * (ABNORMAL) Renal function panel (01/01/2025 9:37 AM EDT) Glucose 105(H) 70 - 99 mg/dL [facility] BUN 10 6 - 24 mg/dL [facility] Creatinine 0.82 0.57 - 1.00 mg/dL [facility] eGFR CKD-EPI CR 2021 85 >59 mL/min/1.7 3 [facility] BUN/Creatinine Ratio 12 9 - 23 [facility] Sodium 138 134 - 144 mmol/L [facility] Potassium 4.4 3.5 - 5.2 mmol/L [facility] Chloride 101 96 - 106 mmol/L [facility] Bicarbonate (CO2) 22 20 - 29 mmol/L [facility] Calcium 9.1 8.7 - 10.2 mg/dL [facility] Albumin 4.1 3.8 - 4.9 g/dL [facility] Phosphorus 3.1 3.0 - 4.3 mg/dL [facility] Blood Venous blood / Unknown 01/01/2025 9:37 AM EDT 01/01/2025 us Mahendra Medel DO LAB BLOOD ORDERABLES Final Resu lt [facility] [address] [place] [address] from Last 3 Months Insurance [address] [place] [address] [facility] One Care Dual SNP ([id number]) NADIR WALKER [id number] Care Teams Electronic Data Interchange Specialist Relationship Specialty Start Date End Date Olamide Chandler MD [address] [place] [address] [place] [phone] PCP - General Internal Medicine 10/27/23
== END 2025-01-31 08:11 | disposition home or self-care (01) ==
LOC: HO.ENCR 07:58
PROVIDERS: PCP Internal Medicine; Visit Provider Student in an Organized Health Care Education/Training Program
DX: E03.9 Hypothyroidism, unspecified (principal); E04.2 Nontoxic multinodular goiter
CPT/HCPCS: 99213

== ENCOUNTER → 2025-01-31 07:57 | Outpatient (BNVA) | payer OTHER, SELFPAY | PROVIDERS: PCP Internal Medicine; Visit Provider Student in an Organized Health Care Education/Training Program | DX: E04.2 Nontoxic multinodular goiter (principal); E03.9 Hypothyroidism, unspecified | CPT/HCPCS: 99212 ==

== ENCOUNTER 2025-02-13 13:00 | Outpatient (REF) | payer OTHER, SELFPAY ==
--- NOTE | ~2025-02-13 | US_ITS ---
CLINICAL HISTORY: Uncontrolled hypertension persistent dizziness US Bilateral Carotid Duplex Comparison: None provided Findings: Minimal to mild plaque formation within the carotid arteries. Peak systolic velocities: Right CCA: 112 cm/s. Right ICA: 72 cm/s. ICA/CCA ratio: Normal Right ECA: Unremarkable Right vertebral artery flow antegrade Left CCA: 87 cm/s. Left ICA: 76cm/s. ICA/CCA ratio: Normal Left ECA: Unremarkable Left vertebral artery flow antegrade IMPRESSION: No hemodynamically significant stenosis within the internal carotid arteries. This document has been electronically signed by: Bakari Vann MD on 02/14/2025 08:28:22
--- OUTSIDE RECORDS SUMMARY | 2025-02-13 13:26 | XMS_ITS | Encounter Summary ---
Author Organization [facility] Address [address] [place] [address] Phone Care Team Providers Care Administrative Director Name Role Phone Olamide Chandler MD Primary Care Provide r Encounter Details Date Type Department Care Team (Late st Contact Info) Description 02/08/2025 Office Communication [facility], [address] [place] [address] Kurtis Jauregui [place] [address] [place] [address] Social History Tobacco Use Types Packs/Day Years Used Date Smoking Tobacco: Never Comments Unknown Sex and Gender Information Value Date Recorded Sex Assigned at Not on file Legal Sex Female 4:37 PM EST Gender Identity Not on file Sexual Orientation Not on file documented as of this encounter Miscellaneous Notes * Telephone Encounter - Kurtis Jauregui MA - 02/08/2025 10:57 AM EDT Laisha called because she has been feeling dizzy. She saw her Ear, Nose and Throat doctor who had her stop the Carvedilol because they are thiking this may be the cause. She states that when she takes her heart rate is low and is wondering if you have something else that she can take. She has not taken BP and has been off the Carvedilol for 2-3 days now. She says the dizziness is better but still there She would like to speak with you if possible [phone] Please advise documented in this encounter Plan of Treatment Upcoming Encounters Date Type Department Care Team (Late st Contact Info) Description 01/02/2026 3:00 PM EDT Office Visit [facility], [address] [place] [phone] Mahendra Medel DO [address] [facility] [place] [address] documented as of this encounter Visit Diagnoses Not on filedocumented in this encounter Care Teams Administrative Director Relationship Specialty Start Date End Date Olamide Chandler MD [address] [place] [phone] PCP - General Internal Medicine 10/27/23 documented as of this encounter
--- OUTSIDE RECORDS SUMMARY | 2025-02-13 13:27 | XMS_ITS | Encounter Summary ---
Author Organization [employer] Address [address] [facility] 7 [place] [address] Care Team Providers Care Metal Furnace Operator Name Role Phone Olamide Chandler MD Primary Care Provide r Reason for Visit * Reason Onset Date Comments Med Refill 01/07/2025 Encounter Details Date Type Department Care Team ([facility] st Contact Info) Description 01/07/2025 Telephone [facility] MEDICINE [address] [place], [place] [phone] Olamide Chandler MD [address] [place], [place] [phone] Med Refill Social History Tobacco Use Types Packs/Day Years [...] encounter Miscellaneous Notes * Telephone Encounter - Xiomara Lubin LPN - 01/07/2025 1:30 PM EDT Last seen 7.16.25 * Telephone Encounter - Federico Marie - 01/07/2025 1:12 PM EDT TC from pt requesting medication refill. Medications needing refill : Zepbound 2.5 MG/0.5ML solution auto-injector [id number] [place], [place] - [address] [place] [address] AT [facility] documented in this encounter Plan of Treatment Upcoming Encounters Date Type Department Care Team ([facility] st Contact Info) Description 02/19/2025 11:15 AM EDT Office Visit [facility] [address] [place] [phone] Olamide Chandler MD [address] [place] [address] documented as of this encounter Visit Diagnoses Diagnosis Class 3 severe obesity due to excess calories with serious comorbidity and body mass index (BMI) of 45.0 to 49.9 in adult documented in this encounter Additional Health Concerns Assessment Noted Time PHQ-9 Depression Total Score: 25 024 9:17 AM EDT documented as of this encounter Care Teams Metal Furnace Operator Relationship Specialty Start Date End Date Olamide Chandler MD [address] [place] [address] PCP - General Family Medicine 07/28/20 documented as of this encounter
--- OUTSIDE RECORDS SUMMARY | 2025-02-13 13:27 | XMS_ITS | Clinical Summary ---
Author Organization [facility], Address [address] [place] [address] [place] [address] Phone Care Team Providers Care Locomotive Engineer Diesel Name Role Phone Olamide Chandler MD Primary [...] Encounters Date Type Department Care Team Description 02/08/2025 Office Communication [facility] [address] [place] [address] Kurtis Jauregui MA 01/08/2025 Office Communication [facility] [address] [place] [address] Mahendra Medel DO 01/07/2025 Documentation Only [facility] [address] [place] [address] Alisha Briceno 01/03/2025 3:00 PM EDT Office Visit [facility] [address] [place] [address] Mahendra Medel DO Chronic kidney disease, stage 2 (mild) (Primary Dx); Renal agenesis <Unilateral>; Hypertension 12/31/2024 Documentation Only [facility] [address] [place] [address] Mahendra Medel DO 12/31/2024 Office Communication [facility] [address] [place] [address] Kurtis Jauregui MA from Last 3 Months [...] Visit [facility], [address] [place] [address] Mahendra Medel, [address] [facility] [place] [phone] Health Maintenance Due Date Last Done Comments [...] 25-OH, Total 64.9 30.0 - 100.0 ng/mL [facility] Comment: Vitamin D deficiency has been defined by the [place] of Medicine and an Endocrine Society practice guideline as a level of serum 25-OH vitamin D less than 20 ng/mL (1,2). The Endocrine Society went on to further define vitamin D insufficiency as a level between 21 and 29 ng/mL (2). 1. IOM ([place] of Medicine). 2010. Dietary reference intakes for calcium and D. [place]: The National Academies Press. 2. Maddie MF, Derrek DAS, Josie FAULKNER, et al. Evaluation, treatment, and prevention of vitamin D deficiency: an Endocrine Society clinical practice guideline. JCEM. 2010; 96(7):1911-30. Blood Venous blood / Unknown 01/04/2025 10:15 AM EDT 01/04/2025 Mahendra Medel DO LAB BLOOD ORDERABLES Final Resu lt [facility] [address] [place] [address] * Magnesium (01/04/2025 10:15 AM EDT) Magnesium 2.0 1.6 - 2.3 mg/dL [facility] Blood Venous blood / Unknown 01/04/2025 10:15 AM EDT 01/04/2025 Mahendra Medel DO LAB BLOOD ORDERABLES Final Resu lt [facility] [address] [place] [address] * Vitamin B12 (01/04/2025 10:15 AM EDT) Pathologist [facility] Vitamin B-12 745 232 - 1,245 pg/mL [facility] Blood Venous blood / Unknown 01/04/2025 10:15 AM EDT 01/04/2025 Mahendra Medel DO LAB BLOOD ORDERABLES Final Resu lt Performing Organization Address [facility] Co de Phone Number [email or web address] [address] [place] [address] * Urine Albumin / Creatinine Ratio (01/01/2025 9:37 AM EDT) [facility] Creatinine, Ur 40.8 Not Estab. mg/dL [facility] Albumin, Urine <3.0 Not Estab. ug/mL [facility] Albumin/Creatin ine Ratio <7 0 - 29 mg/g creat [facility] Comment: Normal: 0 - 29 Moderately increased: 30 - 300 Severely increased: >300 Urine Urine specimen obtained by clean catch procedure / Unknown 01/01/2025 9:37 AM EDT 01/01/2025 Mahendra Medel DO LAB URINE ORDERABLES Final Resu lt Performing Organization Address City/[facility]/ZIP Co de Phone Number [facility] [address] [place] [address] * (ABNORMAL) Renal function panel (01/01/2025 9:37 AM EDT) Pathologist [facility] Glucose 105(H) 70 - 99 mg/dL [facility] BUN 10 6 - 24 mg/dL [facility] Creatinine 0.82 0.57 - 1.00 mg/dL [facility] eGFR CKD-EPI CR 2020 85 >59 mL/min/1.7 3 [facility] BUN/Creatinine Ratio 12 9 - 23 [facility] Sodium 138 134 - 144 mmol/L [facility] Potassium 4.4 3.5 - 5.2 mmol/L [facility] Chloride 101 96 - 106 mmol/L [facility] Bicarbonate (CO2) 22 20 - 29 mmol/L [facility] Calcium 9.1 8.7 - 10.2 mg/dL [facility] Albumin 4.1 3.8 - 4.9 g/dL [facility] Phosphorus 3.1 3.0 - 4.3 mg/dL [facility] Blood Venous blood / Unknown 01/01/2025 9:37 AM EDT 01/01/2025 us Mahendra Medel DO LAB BLOOD ORDERABLES Final Resu lt [facility] [address] [place] [address] from Last 3 Months Insurance [facility] One Care Dual SNP ([id number]) NADIR WALKER [id number] Care Teams Locomotive Engineer Diesel Relationship Specialty Start Date End Date Olamide Chandler MD [address] [place] [address] [place] [phone] PCP - General Internal Medicine 10/27/23
--- OUTSIDE RECORDS SUMMARY | 2025-02-13 13:27 | XMS_ITS | Encounter Summary ---
Author Organization [employer] Address [address] [facility] 7t [place] [address] Care Team Providers Care Tack Cleaner Name Role Phone Olamide Chandler MD Primary Care Provide r Encounter Details Date Type Department Care Team ([facility] st Contact Info) Description 02/08/2025 Telephone [facility] [address] [place], [place] [phone] Olamide Chandler MD [address] [place], [place] [phone] Social History Tobacco Use Types Packs/Day Years [...] housing situation today? I have jozef roberta 01/08/[address] you li [...] encounter Miscellaneous Notes * Telephone Encounter - Trisha Ely RN - 02/11/2025 1:27 PM EDT TC returned to pt. Pt. Reports cardiology increase carvedilol dose back in December to 12.5mg twice daily, ever since then pt. Has been experiencing dizziness, made worse when laying down. Pt. States shereported this to cardiology but they told her to continue on rx. Pt. Then reported this to nephrology, and pt. Was advised to hold the medication for at least two weeks. Pt. Reports she has been off c arvedilol x 2 weeks and BP has not been too high- this morning 145/85, and dizziness has improved. However pt. Reports she has been through two BP monitors at home and readings are very variable and do not match when a family member who is a nurse comes to her home and checks it, therefore she doesnot trust these readings. Pt. Would like to discuss BP medications and possibility of having a nurse come into the home to monitor BP. Pt. Agrees to appt. 02/19/25 at 11:15am with PCP. * Telephone Encounter - Zamzam Alegre - 02/08/2025 2:43 PM EDT Tc from pt stating she was advised by her kidney doctor (kidney care [facility]) and health insurance to contact PCP to request at home nurse care to monitor blood pressure for 2 weeks. No further details provided. Contact pt at [phone] (malay) documented in this encounter Plan of Treatment Upcoming Encounters Date Type Department Care Team (Late st Contact Info) Description 02/19/2025 11:15 AM EDT Office Visit [facility] [address] [place] [address] Olamide Chandler MD [address] [place] [phone] documented as of this encounter Visit Diagnoses Not on filedocumented in this encounter Additional Health Concerns Assessment Noted Time PHQ-9 Depression Total Score: 25 024 9:17 AM EDT documented as of this encounter Care Teams Tack Cleaner Relationship Specialty Start Date End Date Olamide Chandler MD [address] [place] [phone] PCP - General Family Medicine 07/28/20 documented as of this encounter
--- OUTSIDE RECORDS SUMMARY | 2025-02-13 13:27 | XMS_ITS | Encounter Summary ---
Author Organization [employer] Address [address] [facility] 7t [place] [address] Care Team Providers Care Printing Press Machinist Name Role Phone Olamide Chandler MD Primary Care Provide r Encounter Details Date Type Department Care Team ([facility] st Contact Info) Description 12/04/2024 Orders Only [facility] [address] [place], [place] [phone] Olamide Chandler MD [address] [place], [place] [phone] Social History Tobacco Use Types Packs/Day Years [...] Description 02/19/2025 11:15 AM EDT Office Visit [facility] [address] [place] [address] Olamide Chandler MD [address] [place] [address] documented as of this encounter Visit Diagnoses Not on filedocumented in this encounter Additional Health Concerns Assessment Noted Time PHQ-9 Depression Total Score: 25 024 9:17 AM EDT documented as of this encounter Care Teams Printing Press Machinist Relationship Specialty Start Date End Date Olamide Chandler MD [address] [place] [address] PCP - General Family Medicine 07/28/20 documented as of this encounter
--- OUTSIDE RECORDS SUMMARY | 2025-02-13 13:27 | XMS_ITS | Encounter Summary ---
Author Organization [employer] Address 75 [facility] 7t [place] [address] Care Team Providers Care Manager Behavioral Name Role Phone Olamide Chandler MD Primary Care Provide r Encounter Details Date Type Department Care Team ([facility] Contact Info) Description 09/01/2022 Orders Only [facility] [address] [place] [phone] Renée Okeefe [place] Social History Tobacco Use [...] Department Care Team (Late Contact Info) Description 02/19/2025 11:15 AM EDT Office Visit [facility] [address] [place] [address] Olamide Chandler MD [address] [place] [address] documented as of this encounter Procedures Procedure [...] (04/17/2023 1:20 AM EDT) Color Urine Yellow [facility] Appearance Urine Clear [facility] PH 6.0 5.0 - 9.0 [facility] Glucose Urine UA Negative Negative mg/dL [facility] Urine Blood Negative Negative [facility] Specific [place] - Urine <=1.005 1.005 - 1.025 [facility] Urine Protein Negative Neg-Trace mg/dL [facility] Urine Ketones Negative Negative mg/dL [facility] Nitrite Urine Negative Negative [facility] Leukocyte Esterase Urine Trace(A) Negative [facility] RBC Urine 0-2 0 - 2 /HPF [facility] Urine WBC 0-5 0 - 5 /HPF [facility] Urine Squamous Epithelial Cell 0-2 0 - 2 /HPF [facility] Urine Bacteria None Seen None Seen [facility] Hyaline Casts, Urine 0-2 0 - 2 /LPF [facility] 04/17/2023 1:20 AM EDT 04/17/2023 1:23 AM EDT Narrative [facility] - 04/17/2023 1:42 AM EDT [id number], Clean Catch us [facility] External Provider LAB URI NE ORDERABLES Final Result Performing Organization Address City/[facility]/ZIP Co de Phone Number [facility] [address] [place] [address] [phone] * B Type Natriuretic Peptide (BNP) (04/17/2023 12:46 AM EDT) B Type Natriuretic Peptide 44 <100 pg/mL [facility] Comment:For those patients w ho are being treated with Natrecor(nesiritide, recombinant BNP), BNP testing should beperformed at least two hours post treatment in order toensure that only endogenous levels of BNP are detected. 04/17/2023 12:4 6 AM EDT 04/17/2023 12:53 AM EDT [facility] External Provider LAB BLO OD ORDERABLES Final Result Performing Organization Address [facility] Co de Phone Number [facility] [address] [place] [address] [phone] * BI Mammogram Screening Tomosynthesis Bilateral (09/09/2022 8:30 AM EDT) Anatomical Region Laterality Modality Breast Bilateral Mammography 09/09/2022 8:30 AM EDT Narrative 09/10/2022 11:56 AM EDT [facility] [address] [place] [address] Mammography Report Signed Patient: Laisha Ye I MR#: [id number] : 1970 Acct:[id number] Age/Sex: 51 / F ADM Date: 09/09/22 Loc: HO.MAMMO Attending Dr: Olamide Stevens MD Ordering Physician: Olamide Chandler MD Results: 1Negative Date of Service: 09/09/22 Follow Up: 1 Year From Orig inal Mammogram Procedure(s): MM tomosynthesis screening BI Accession Number(s): [id number] cc: Olamide Chandler MD EXAMINATION: MM SCREENING [...] in OV> 09/10/22 1153 DD/ 0830 TD/TT: Licensed Prosthetist/Orthotist: SK Procedure Note Donotuseinterpreter, Image - 09/10/2022 [facility] [address] [place] [address] Mammography Report Signed Patient: Laisha Ye [facility]#: [id number] : 1970Acct:[id number] Age/Sex: 51 / FADM Date: 09/09/22 Loc: HO.MAMMO Attending Dr: Olamide Stevens MD Ordering Physician: Olamide Chandler MDResults: 1Negative Date of Service: 09/09/22Follow Up: 1 Year From Orig inal Mammogram Procedure(s): MM tomosynthesis screening BI Accession Number(s): [id number] cc: Olamide Chandler MD EXAMINATION: MM SCREENING [...] in OV> 09/10/22 1153 DD/ 0830 TD/TT: Licensed Prosthetist/Orthotist: SAURAV [facility] External Provider IMG BI PROCEDURES Edited Result - Final documented in this encounter Visit Diagnoses Not on filedocumented in this encounter Care Teams Manager Behavioral Relationship Specialty Start Date End Date Olamide Chandler MD [address] [place] [phone] PCP - General Family Medicine 07/28/20 documented as of this encounter
--- OUTSIDE RECORDS SUMMARY | 2025-02-13 13:27 | XMS_ITS | Encounter Summary ---
Author Organization [email or web address] Address [address] [facility] 7t [place] [address] Care Team Providers Care Veterinary Technician Assistant Name Role Phone Olamide Chandler MD Primary Care Provide r Encounter Details Date Type Department Care Team ([facility] Contact Info) Description 08/18/2022 Telephone [facility] [address] [place], [place] [phone] Olamide Chandler MD [address] [place], [place] [phone] Social History Tobacco Use Types Packs/Day Years [...] Description 02/19/2025 11:15 AM EDT Office Visit [facility] [address] [place] [address] Olamide Chandler MD [address] [place] [address] documented as of this encounter Visit Diagnoses Not on filedocumented in this encounter Care Teams Veterinary Technician Assistant Relationship Specialty Start Date End Date Olamide Chandler MD [address] [place] [phone] PCP - General Family Medicine 07/28/20 documented as of this encounter
--- OUTSIDE RECORDS SUMMARY | 2025-02-13 13:27 | XMS_ITS | Encounter Summary ---
Author Organization [employer] Address [address] [facility] 7 [place] [address] Care Team Providers Care Supervisor Turkey Farm Name Role Phone Olamide Chandler MD Primary Care Provide r Reason for Visit * Reason Onset Date Comments Nurse Triage 12/31/2024 Encounter Details Date Type Department Care Team (Late st Contact Info) Description 12/31/2024 Telephone [facility] [address] [place], [place] [phone] Olamide Chandler MD [address] [place], [place] [phone] Nurse Triage Social History Tobacco Use Types [...] encounter Miscellaneous Notes * Telephone Encounter - Inez Montiel RN - 12/31/2024 9:27 AM EDT Triage call Pt reports dizziness for last 2 weeks. Dizziness is described as lightheadedness. Pt denies spinning sensation, vomiting or inability to carry on normal activities. Dizziness comes and goes , Pt is advised to be careful to get up from sitting position slowly and turning slowly to prevent falls and Pt agrees. Pt reports drinking adequate liquids. Pt reports seeing edge inker last week , at which time BP was found to be high and medication was increased. Pt was advised to contact PCP and follow up with this symptom and with BP. ASK apt with Dr. Graham 01/02/25 @ 1100am. Pt agrees with disposition and insurance is verified as active prior to booking. Protocol Used: Dizziness (Adult) Protocol-Based Disposition: See in Office or Video Visit within 3 Days Positive Triage Question: * Mild dizziness (e.g., walking normally) and has NOT been evaluated by physician for this (Exception: Dizziness caused by heat exposure, sudden standing, or poor fluid intake.) * All higher-acuity triage questions were negative Care Advice Discussed: * Drink Fluids * Lie Down and Rest * Prevention - Dizziness * Reasons To Call Back - After 2 hours of rest and fluids and you are still feeling dizzy - You pass out (faint) or are too weak to stand - You become worse * Telephone Encounter - Kirticarlton Cynthia - 12/31/2024 9:09 AM EDT Symptom: Dizziness Outcome: Schedule an appointment to be seen within 24 hours Reason: Caller denied all higher acuity questions The caller accepted this outcome. Contact pt at [phone] documented in this encounter Plan of Treatment Upcoming Encounters Date Type Department Care Team (Late st Contact Info) Description 02/19/2025 11:15 AM EDT Office Visit [facility] [address] [place] [address] Olamide Chandler MD [address] [place] [address] documented as of this encounter Visit Diagnoses Not on filedocumented in this encounter Additional Health Concerns Assessment Noted Time PHQ-9 Depression Total Score: 25 024 9:17 AM EDT documented as of this encounter Care Teams Supervisor Turkey Farm Relationship Specialty Start Date End Date Olamide Chandler MD [address] [place] [phone] PCP - General Family Medicine 07/28/20 documented as of this encounter
--- OUTSIDE RECORDS SUMMARY | 2025-02-13 13:27 | XMS_ITS | Encounter Summary ---
Author Organization [employer] Address [address] [facility] 7 [place] [address] Care Team Providers Care Textile Coating Machine Operator Name Role Phone Olamide Chandler MD Primary Care Provide r Reason for Visit * Reason Onset Date Comments Med Refill 12/04/2024 Encounter Details Date Type Department Care Team ([facility] st Contact Info) Description 12/04/2024 Telephone [facility] [address] [place], [place] [phone] Olamide Chandler MD [address] [place], [place] [phone] Med Refill Social History Tobacco Use Types [...] encounter Miscellaneous Notes * Telephone Encounter - Domenica Cote - 12/26/2024 9:52 AM EDT TC from pt stating she received 2 letters from insurance denying the Zebound due to lack of information in the PA. Please review and resubmit Contact pt at [phone] Need dumper bulk system * Telephone Encounter - Bea Escobar LPN - 12/04/2024 2:48 PM EDT Medication was sent to [facility] #[id number] today. * Telephone Encounter - Joselyn Boyer - 12/04/2024 2:46 PM EDT TC from pt requesting medication refill. Medications needing refill : Zepbound 2.5 MG/0.5ML solution auto-injector To be sent to: [id number] - [place] [address] [facility] [place] signed by Joselyn Boyer at 12/04/2024 2:46 PM EDT documented in this encounter Plan of Treatment Upcoming Encounters Date Type Department Care Team (Late st Contact Info) Description 02/19/2025 11:15 AM EDT Office Visit [facility] [address] [place] [address] Olamide Chandler MD [address] [place] [address] documented as of this encounter Visit Diagnoses Not on filedocumented in this encounter Additional Health Concerns Assessment Noted Time PHQ-9 Depression Total Score: 25 024 9:17 AM EDT documented as of this encounter Care Teams Textile Coating Machine Operator Relationship Specialty Start Date End Date Olamide Chandler MD [address] [place] [phone] PCP - General Family Medicine 07/28/20 documented as of this encounter
--- OUTSIDE RECORDS SUMMARY | 2025-02-13 13:27 | XMS_ITS | Encounter Summary ---
Author Organization [employer] Address 75 [facility] 7t [place] [address] Care Team Providers Care Iron Launder Operator Name Role Phone Olamide Chandler MD Primary Care Provide r Reason for Visit * Reason Comments Med Refill Encounter Details Date Type Department Care Team (Late st Contact Info) Description 11/03/2024 Refill [facility] [address] [place], [place] [phone] Olamide Chandler MD [address] [place], [place] [phone] Class 3 severe obesity due to excess calories with serious comorbidity and body mass index (BMI) of 45.0 to 49.9 in adult Social History Tobacco Use Types Packs/Day Years [...] Description 02/19/2025 11:15 AM EDT Office Visit [facility] [address] [place] [address] Olamide Chandler MD [address] [place] [address] documented as of this encounter Visit Diagnoses Diagnosis Class 3 severe obesity due to excess calories with serious comorbidity and body mass index (BMI) of 45.0 to 49.9 in adult documented in this encounter Additional Health Concerns Assessment Noted Time PHQ-9 Depression Total Score: 25 024 9:17 AM EDT documented as of this encounter Care Teams Iron Launder Operator Relationship Specialty Start Date End Date Olamide Chandler MD [address] [place] [phone] PCP - General Family Medicine 07/28/20 documented as of this encounter
--- OUTSIDE RECORDS SUMMARY | 2025-02-13 13:27 | XMS_ITS | Encounter Summary ---
Author Organization [employer] Address [address] [facility] 7t [place] [address] Care Team Providers Care Paper Cup Machine Operator Name Role Phone Olamide Chandler MD Primary Care Provide r Reason for Visit * Reason Comments Med Refill Encounter Details Date Type Department Care Team (Late st Contact Info) Description 11/27/2024 Refill [facility] [address] [place], [place] [phone] Olamide Chandler MD [address] [place], [place] [phone] Class 3 severe obesity due to excess [...] 11:15 AM EDT Office Visit [facility] [address] [place] [phone] Olamide Chandler MD [address] [place] [address] documented as of this encounter Visit Diagnoses Diagnosis Class 3 severe obesity due to excess calories with serious comorbidity and body mass index (BMI) of 45.0 to 49.9 in adult documented in this encounter Additional Health Concerns Assessment Noted Time PHQ-9 Depression Total Score: 25 024 9:17 AM EDT documented as of this encounter Care Teams Paper Cup Machine Operator Relationship Specialty Start Date End Date Olamide Chandler MD [address] [place] [phone] PCP - General Family Medicine 07/28/20 documented as of this encounter
--- OUTSIDE RECORDS SUMMARY | 2025-02-13 13:27 | XMS_ITS | Encounter Summary ---
Author Organization [employer] Address 75 [facility] 7 [place] [address] Care Team Providers Care Net Finisher Name Role Phone Olamide Chandler MD Primary Care Provide r Reason for Visit * Reason Onset Date Comments Pre-visit Planning 03/02/2024 Encounter Details Date Type Department Care Team ([facility] st Contact Info) Description 03/02/2024 Telephone [facility] [address] [place], [place] [phone] Olamide Chandler MD [address] [place], [place] [phone] Pre-visit Planning Social History Tobacco Use Types [...] Office Visit [facility] [address] [place] [address] Olamide Chandler MD [address] [place] [address] documented as of this encounter Visit Diagnoses Not on filedocumented in this encounter Additional Health Concerns Assessment Noted Time PHQ-9 Depression Total Score: 18 024 9:06 AM EST documented as of this encounter Care Teams Net Finisher Relationship Specialty Start Date End Date Olamide Chandler MD [address] [place] [phone] PCP - General Family Medicine 07/28/20 documented as of this encounter
--- OUTSIDE RECORDS SUMMARY | 2025-02-13 13:27 | XMS_ITS | Clinical Summary ---
Author Organization [employer] Address [address] [facility] 7t [place] [address] Care Team Providers Care Stock Preparation Operator Name Role Phone Olamide Chandler MD [...] 20 MG TABLET 023 Active sodium chloride ([place] Nasal Valentine) 0.65 % nasal sprayIndications: COVID-19 1-2 sprays [...] per week. 2 mL 2 025 Active omeprazole (PriLOSEC) [address] [...] PM EDT): Patient is being follow by mortgage lender I will c/w zepbound 2.5mg weekly, I [...] It seems to be [place]ison [place] or [place] rash. We discuss about avoiding scratching, use [...] Encounters Date Type Department Care Team Description 02/12/2025 Travel 02/08/2025 Telephone [facility] [address] [place] [address] Olamide Chandler MD 01/18/2025 11:30 AM EDT Office Visit [facility] [address] [place] [address] Olamide Chandler MD Prediabetes (Primary Dx); Essential hypertension; Stage 3 chronic kidney disease, unspecified whether stage 3a or 3b CKD (CMS/HCC); Meningioma, cerebral (CMS/HCC); Anxiety with depression; Class 3 severe obesity due to excess calories with serious comorbidity and body mass index (BMI) of 45.0 to 49.9 in adult; Dietary counseling; Exercise counseling 01/18/2025 Travel 01/17/[address] [address] Olamide Chandler MD Chart Prep 01/15/[address] [address] Olamide Chandler MD Gastroesophageal reflux disease, unspecified whether esophagitis present 01/11/2025 Orders Only GENERIC EXTERNAL DATA DEPARTMENT Provider, Generic External Data 01/11/2025 Travel 01/08/2025 Patient Outreach [address] [address] Olamide Chandler MD Pre-visit Planning (SDOH screening negative and tobacco screening negative) 01/07/[address] [address] Olamide Chandler MD Med Refill 01/02/2025 11:00 AM EDT Office Visit [address] [address] Brittney Graham MD [facility] (Primary Dx); Essential hypertension; Acquired hypothyroidism 01/02/2025 Travel 01/01/2025 Travel 12/31/[address] [address] Olamide Chandler MD Nurse Triage 12/04/[address] [address] Olamide Chandler MD Med Refill 12/04/2024 Orders Only [address] [address] Olamide Chandler MD 12/03/2024 Refill [facility] [address] [place] [address] [phone] Olamide Chandler MD Class 3 severe obesity due to excess calories with serious comorbidity and body mass index (BMI) of 45.0 to 49.9 in adult 11/28/2024 Telephone [facility] [address] [place] [address] [phone] Olamide Chandler MD Prior Authorization (/) 11/27/2024 Refill [facility] [address] [place], [place] [phone] Olamide Chandler MD Class 3 severe obesity due to excess calories with serious comorbidity and body mass index (BMI) of 45.0 to 49.9 in adult 11/23/2024 Telephone [facility] [address] [place], [place] [phone] Olamide Chandler MD Prior Authorization (CCA PA: Zepbound 2.5 mg) 11/20/2024 Refill [facility] [address] [place], [place] [phone] Olamide Chandler MD Other specified hypothyroidism 11/17/2024 Refill [facility] [address] [place], [place] [phone] Olamide Chandler MD Vitamin D deficiency; Seasonal allergies from Last 3 Months Immunizations [...] 01/18/2025 11:31 AM EDT Plan of Treatment Upcoming Encounters Date Type Department Care Team (Late st Contact Info) Description 02/19/2025 11:15 AM EDT Office Visit [facility] [address] [place], [place] [phone] Olamide Chandler MD [address] [place] [address] Health Maintenance Due Date Last Done Comments [...] POCT HGB A1C (01/18/2025 12:37 PM EDT) Hemoglobin A1C 5.4 4.0 - 5.7 % Blood 01/18/2025 12:3 7 PM EDT Olamide Stevens MD POINT OF CARE TEST EN TER/EDIT ORDERABLES Final Result * POCT Glucose (01/18/2025 12:37 PM EDT) Pathologist [facility] Glucose Blood, POC 136 60 - 200 mg/dL Blood Capillary blood specimen / Unknown 01/18/2025 12:37 PM EDT Olamide Stevens MD POINT OF CARE TEST EN TER/EDIT ORDERABLES Final Result * High Sensitivity Troponin I (01/11/2025 11:20 AM EDT) [facility] TROPONIN I HIGH SENSITIVITY <2.7 <3.5 - 17.0 ng/L [facility] Comment:The [place] high sens itivity Troponin-I results should beused in conjunction with other diagnostic information suchas ECG, clinical observations and information, and patientsymptoms to aid in the diagnosis of [place]. 01/11/2025 11:2 0 AM EDT 01/11/2025 11:23 AM EDT us Generic External Data Provider LAB BLOOD ORDERAB LES Final Result [facility] [address] [place] [phone] * SARS-CoV-2 RNA, Influenza A/B, and RSV RNA, Ql NAAT (01/11/2025 11:20 AM EDT) [facility] Influenza A PCR NEGATIVE Negative [facility] Influenza B PCR NEGATIVE Negative [facility] Resp Syncy Virus RNA Qual PCR NEGATIVE Negative [facility] SARS COV2 PCR NEGATIVE Negative [facility] Comment:All test results mus t [...] use by authorized laboratories.Testing performed on the [employer] GeneXpert utilizingreal-time RT-PCR.All SARS CoV2 and positive influenza A/B results arereported to [facility]. 01/11/2025 11:2 0 AM EDT 01/11/2025 11:23 AM EDT us Generic External Data Provider LAB MICROBIOLOGY - GENERAL ORDERABLES Final Result [facility] [address] [place] [phone] * (ABNORMAL) CBC auto differential (01/11/2025 11:20 AM EDT) White Blood Count 10.0 4.8 - 10.8 X10*3/uL [facility] Red Blood Count 4.67 4.20 - 5.50 X10*6/uL [facility] Hemoglobin 13.6 12.0 - 16.0 g/dl [facility] Hematocrit 41.0 37.0 - 47.0 % [facility] Mean Corpuscular Volume 87.8 80.0 - 98.0 fL [facility] Mean Corpuscular Hemoglobin 29.1 27.0 - 33.0 pg [facility] Mean Corpuscular HGB Conc 33.2 31.0 - 35.0 g/dl [facility] Red Cell Distribution Width 12.5 11.0 - 16.0 % [facility] Platelet Count 310 160 - 400 X10*3/uL [facility] Mean Platelet Volume 9.7 9.4 - 12.3 fL [facility] Neutrophils Percent Auto 80.0(H) 45 - 73 % [facility] Imm Gran Pct Auto 0.3 0.0 - 0.4 % [facility] Lymphocytes Percent Auto 13.3(L) 20 - 40 % [facility] Monocytes Percent Auto 5.2 2 - 11 % [facility] Eosinophils Percent Auto 0.6 0 - 4 % [facility] Basophils Percent Auto 0.6 0 - 2 % [facility] NRBC Pct Auto 0.0 0.0 - 0.2 /100WBC [facility] Neutrophils Absolute Auto 8.0 2.0 - 8.3 x10*3/uL [facility] Imm Gran Abs Auto 0.03 0.00 - 0.03 X10*3/uL [facility] Lymphocytes Absolute Auto 1.3 1.2 - 4.9 X10*3/uL [facility] Monocytes Absolute Auto 0.5 0.1 - 1.2 X10*3/uL [facility] Eosinophils Absolute Auto 0.1 0.0 - 0.4 X10*3/uL [facility] Basophils Absolute Auto 0.1 0.0 - 0.2 X10*3/uL [facility] NRBC Abs Auto 0.000 0.0 - 0.012 X10*3/uL [facility] 01/11/2025 11:2 0 AM EDT 01/11/2025 11:23 AM EDT us Generic External Data Provider LAB BLOOD ORDERAB LES Final Result Performing Organization Address City/[facility]/ZIP Co de Phone Number [facility] [address] [place] [phone] * Magnesium (01/11/2025 11:20 AM EDT) Magnesium 2.2 1.6 - 2.6 mg/dL [facility] 01/11/2025 11:2 0 AM EDT 01/11/2025 11:23 AM EDT us Generic External Data Provider LAB BLOOD ORDERAB LES Final Result Performing Organization Address City/[facility]/ZIP Co de Phone Number [facility] [address] [place] [phone] * (ABNORMAL) Comprehensive Metabolic Panel (01/11/2025 11:20 AM EDT) Sodium 140 135 - 145 mmol/L [facility] Potassium 4.1 3.3 - 5.1 mmol/L [facility] Chloride 104 96 - 108 mmol/L [facility] Carbon Dioxide 30(H) 22 - 29 mmol/L [facility] Anion Gap 10(L) 12 - 20 [facility] Urea Nitrogen (BUN) 15 9 - 16 mg/dL [facility] Creatinine, Serum 0.79 0.5 - 1.4 mg/dL [facility] Creatinine Clr Calc Pharmacy 82.0 [facility] Comment:Provided height and weight: 154.94 cm,86.183 kg.eGFR (calculated from the MDRD study equation) and eCrCl(calculated from the Cockcroft-Gault equation) are based ondifferent parameters and may not yield comparable results.If eCrCl result is absurd, please check patient'sheight/weight. Estimated Glomerular Filt Rate >60 [facility] Comment:Chronic Kidney Disea se: Estimated GFR < 60 mL/min/1.41e9Vmtfpo Kidney Disease: Estimated GFR < 15 mL/min/1.73m2 Glucose 120(H) 60 - 115 mg/dL [facility] Calcium 9.5 8.4 - 10.2 mg/dL [facility] Bilirubin, Total 0.4 0.0 - 1.0 mg/dL [facility] Aspartate Amino Transferase 24 5 - 31 U/L [facility] Alanine Aminotransferase 17 0 - 31 U/L [facility] Total Protein 7.8 6.5 - 8.0 g/dL [facility] Albumin Level 4.2 3.5 - 5.0 g/dL [facility] Alkaline Phosphatase 73 39 - 117 U/L [facility] 01/11/2025 11:2 0 AM EDT 01/11/2025 11:23 AM EDT us Generic External Data Provider LAB BLOOD ORDERAB LES Final Result Performing Organization Address [facility]/ZIP Co de Phone Number [facility] [address] [place] [phone] [phone] * TSH with Reflex to Free T4 (01/02/2025 11:37 AM EDT) TSH reflex Free T4 1.18 0.32 - 4.0 uIU/mL [facility] Blood 01/02/2025 11:3 7 AM EDT 01/02/2025 1:47 PM EDT us Brittney Graham MD LAB BLOOD ORDERABLES Fin al Result Performing Organization Address [facility] Co de Phone Number [facility] [address] [place] [phone] * (ABNORMAL) Basic Metabolic Panel (01/02/2025 11:37 AM EDT) Sodium 138 135 - 145 mmol/L [facility] Potassium 3.9 3.3 - 5.1 mmol/L [facility] Chloride 104 96 - 108 mmol/L [facility] Carbon Dioxide 27 22 - 29 mmol/L [facility] Anion Gap 11(L) 12 - 20 [facility] Urea Nitrogen (BUN) 9 9 - 16 mg/dL [facility] Creatinine, Serum 0.83 0.5 - 1.4 mg/dL [facility] Estimated Glomerular Filt Rate >60 [facility] Comment:Chronic Kidney Disea se: Estimated GFR < 60 mL/min/1.30z7Hmlhqu Kidney Disease: Estimated GFR < 15 mL/min/1.73m2 Glucose 116(H) 60 - 115 mg/dL [facility] Calcium 9.3 8.4 - 10.2 mg/dL [facility] Blood Venous blood specimen / Unknown 01/02/2025 11:37 AM EDT 01/02/2025 1:47 PM EDT Brittney Graham MD LAB BLOOD ORDERABLES Fin al Result [facility] [address] [place] [phone] * BI US Breast Limited Left (11/14/2024 11:00 AM EDT) Anatomical Region Laterality Modality Breast Left Ultrasound 11/14/2024 11:0 0 AM EDT Narrative 11/14/2024 3:08 PM EDT [address] [place] [address] Ultrasound Report Signed Patient: Laisha Ye I MR#: M [id number] : 1970 Acct:[id number] Age/Sex: 54 / F ADM Date: 11/14/24 Loc: HO.MAMMO Attending Dr: Olamide Stevens MD Ordering Physician: Olamide Chandler MD Date of Service: 11/14/24 Procedure(s): US breast LT limited mamm only Accession Number(s): [id number] cc: Olamide Chandler MD EXAMINATION: MM DIAGNOSTIC [...] 11/14/24 1505 DD/ 1100 TD/TT: 11/14/24 1100 Messenger Office: Procedure Note Donotuseinterpreter, Image - 11/14/2024 [facility] [address] [place] [address] Ultrasound Report Signed Patient: Laisha Ye [facility]#: [id number] : 1970Acct:[id number] Age/Sex: 54 / FADM Date: 11/14/24 Loc: HO.MAMMO Attending Dr: Olamide Stevens MD Ordering Physician: Olamide Chandler MD Date of Service: 11/14/24 Procedure(s): US breast LT limited mamm only Accession Number(s): [id number] cc: Olamide Chandler MD EXAMINATION: MM DIAGNOSTIC [...] 11/14/24 1505 DD/ 1100 TD/TT: 11/14/24 1100 Messenger Office: us Olamide Stevens MD IMG US PROCEDURES Fin al Result * BI Mammogram Diagnostic Tomosynthesis added left (11/14/2024 10:30 AM EDT) Anatomical Region Laterality Modality Breast Left Mammography 11/14/2024 10:3 0 AM EDT Narrative 11/14/2024 3:08 PM EDT [place] [facility]'s [address] [place], [place] [address] Mammography Report Signed Patient: Laisha Ye I MR#: M [id number] : 1970 Acct:[id number] Age/Sex: 54 / F ADM Date: 11/14/24 Loc: HO.MAMMO Attending Dr: Olamide Stevens MD Ordering Physician: Olamide Chandler MD Results: 3.6MProbably Benign Finding - Short 6 M F/U Suggested Date of Service: 11/14/24 Follow Up: 6 Month F/U Procedure(s): MM tomosynthesis added views L Accession Number(s): [id number] cc: Olamide Chandler MD EXAMINATION: MM DIAGNOSTIC [...] 11/14/24 1505 DD/ 1030 TD/TT: 11/14/24 1100 Messenger Office: Procedure Note Donotuseinterpreter, Image - 11/14/2024 [place] [facility]'s [address] [place] [address] Mammography Report Signed Patient: Laisha Ye IMR#: M [id number] : 1970Acct:[id number] Age/Sex: 54 / FADM Date: 11/14/24 Loc: HO.MAMMO Attending Dr: Olamide Stevens MD Ordering Physician: Olamide Chandler MD Results: 3.6MProbably Benign Finding - Short 6 M F/U Suggested Date of Service: 11/14/24Follow Up: 6 Month F/U Procedure(s): MM tomosynthesis added views L Accession Number(s): [id number] cc: Olamide Chandler MD EXAMINATION: MM DIAGNOSTIC [...] 11/14/24 1505 DD/ 1030 TD/TT: 11/14/24 1100 Messenger Office: us Olamide Stevens MD IMG BI PROCEDURES Fin al Result * (ABNORMAL) Lipid Panel with Reflex to Direct LDL (03/29/2024 9:50 AM EDT) Triglycerides 89 <150 mg/dL [facility] Comment:Desirable Triglyceri de: less than 150 mg/dLBorderline High Triglyceride 150-199 mg/dLHigh Triglyceride: 200-499 mg/dLVery High Triglyceride: greater than or equal to 5OO mg/dL Cholesterol 168 <200 mg/dL [facility] Comment:Desirable Cholestero l: less than 200 mg/dLBorderline High Cholesterol: 200-239 mg/dLHigh Cholesterol: greater than 239 mg/dL LDL Cholesterol Calculated 107(H) <100 mg/dL [facility] Comment:Desirable LDL: less than 100 mg/dLNear Optimal/Above Optimal LDL: 110- 129 mg/dLBorderline High LDL: 130-159 mg/dLHigh LDL: 160-189 mg/dLVery High LDL: greater than or equal to 190 mg/dL HDL Cholesterol 44 >40 mg/dL [facility] Comment:Desirable HDL: great er than 40 mg/dL Note: This HDL assay may give artificially low results in patients with liver disease. Blood 03/29/2024 9:50 AM EDT 03/29/2024 11:08 AM EDT Olamide Stevens MD LAB BLOOD ORDERABLES Final Result [facility] [address] [place] [phone] * Image-Guided Pap with Age-Based Screening??with CT/NG,??Trichomonas (10/29/2022 11:29 AM EDT) Comment [employer] Comment: This order for age-based cervical cancer and STI screening follows ACOG guidelines(PB 168, 140, NFJ072). See individual assays for performing site location. Clinical Information: 52 Y/O F NO PREVIOUS ABNORMALITY C [employer] LMP: NONE GIVEN [facility] [place] [employer] Prev. PAP: NONE GIVEN [facility] [place] [employer] Prev. BX: NONE GIVEN [facility] [place] [employer] [facility] SOURCE: None given [employer] Statement Of Adequacy: [facility] [employer] Comment: Satisfactory for evaluation. Endocervical/transformation zone component absent. Interpretation/Re sult: Negative for intraepithelial lesion or malignancy. [facility] [employer] COMMENT: This Pap test has been evaluated with computer assisted technology. [facility] [employer] Canal Boat Captain: Amalia [employer] [place] [employer] Comment: EXJ, CT(ASCP) CT Screening Location: [address] [phone] (Always Message) [facility]ly [facility] [employer] [place] [employer] Comment: EXPLANATORY NOTE: The Pap is a [...] HPV nRNA E6/E7 Not Detected Not Detected [facility] [employer] Comment: Methodology: Buzzsaw Operator-Mediated Amplification This assay detects E6/E7 viral messenger RNA (mRNA) from 14 high-risk HPV types (16,18,31,33,35,39,45,51,52,56,58,59,66,68). Cervical sources are required for HPV testing. If a vaginal source from a patient who has had a total hysterectomy with removal of cervix was submitted, please contact the testing laboratory for alternative testing options. For additional information, please refer to http://[employer].Aentropico/faq/USU369r3 (This link if provided for information/ educational purposes only.) Chlamydia trachomatis RNA, TMA, Urogenital NOT DETECTED NOT DETECTED [employer] Neisseria gonorrhoeae RNA, TMA, Urogenital NOT DETECTED NOT DETECTED [employer] (Always Message) [employer] Comment: The analytical performance characteristics of this assay, when used to test SurePath(TM) specimens have been determined by [facility]. The modifications have not been cleared or approved by the FDA. This assay has been validated pursuant to the CLIA regulations and is used for clinical purposes. For additional information, please refer to https://BigString/faq/XPP815 (This link is being provided for information/ educational purposes only.) Trichomonas vaginalis, QL, TMA, PAP Vial NOT DETECTED NOT DETECTED [employer] Comment: The analytical performance characteristics of this assay have been determined by [facility]. The modifications have not been cleared or approved by the FDA. This assay has been validated pursuant to the CLIA regulations and is used for clinical purposes. For additional information, please refer to http://BigString/ faq/Trichomonastma (This link is being provided for information/ educational purposes only.) Pap Vial 10/29/2022 11:2 9 AM EDT 10/31/2022 4:55 PM EDT us Olamide Stevens MD LAB CYTOLOGY ORDERABL ES Final Result [facility] [address], [place] [phone] [facility] [place] [facility] [address] [place] [phone] * Hm Colonoscopy (04/12/2022 10:07 PM EDT) us Historical Provider HEALTH MAINTENANCE Final Result from Last 3 Months or Most Recently Relevant to Health Maintenance Insurance [facility] ONE CARE < 65 [place] [id number] Care Teams Stock Preparation Operator Relationship Specialty Start Date End Date Olamide Chandler MD [address] [place] [phone] PCP - General Family Medicine 07/28/20
--- OUTSIDE RECORDS SUMMARY | 2025-02-13 13:27 | XMS_ITS | Encounter Summary ---
Author Organization [employer] Address [address] [facility] 7t [place] [address] Care Team Providers Care Guard Immigration Name Role Phone Olamide Chandler MD Primary Care Provide r Encounter Details Date Type Department Care Team (Late st Contact Info) Description 10/19/2024 Orders Only [facility] [address] [place] [address] Provider, MD Maurisio Social History Tobacco Use Types Packs/Day Years [...] Description 02/19/2025 11:15 AM EDT Office Visit [facility] [address] [place], [place] [phone] Olamide Chandler MD [address] [place], [place] [phone] documented as of this encounter Procedures Procedure Name Priority Date/Time Associated Diagnosis Comments BI US BREAST LIMITED LEFT Routine 11/14/2024 11:00 AM EDT BI MAMMOGRAM DIAGNOSTIC TOMOSYNTHESIS ADDED VIEW LEFT Routine 11/14/2024 10:30 AM EDT HM COLONOSCOPY Routine 04/12/2022 10:07 PM EDT documented in this encounter Results * BI US Breast Limited Left (11/14/2024 11:00 AM EDT) Anatomical Region Laterality Modality Breast Left Ultrasound 11/14/2024 11:0 0 AM EDT Narrative 11/14/2024 3:08 PM EDT [facility]'s [address] [place] [address] Ultrasound Report Signed Patient: Laisha Ye I MR#: M [id number] : 1970 Acct:[id number] Age/Sex: 54 / F ADM Date: 11/14/24 Loc: HO.MAMMO Attending Dr: Olamide Stevens MD Ordering Physician: Olamide Chandler MD Date of Service: 11/14/24 Procedure(s): US breast LT limited mamm only Accession Number(s): [id number] cc: Olamide Chandler MD EXAMINATION: MM DIAGNOSTIC [...] 11/14/24 1505 DD/ 1100 TD/TT: 11/14/24 1100 Carry Out Clerk And Shelf Stocker: Procedure Note Donotuseinterpreter, Image - 11/14/2024 [place] [facility] [address] [place], [place] [address] Ultrasound Report Signed Patient: Laisha Ye IMR#: M [id number] : 1970Acct:[id number] Age/Sex: 54 / FADM Date: 11/14/24 Loc: HO.MAMMO Attending Dr: Olamide Stevens MD Ordering Physician: Olamide Chandler MD Date of Service: 11/14/24 Procedure(s): US breast LT limited mamm only Accession Number(s): [id number] cc: Olamide Chandler MD EXAMINATION: MM DIAGNOSTIC [...] 11/14/24 1505 DD/ 1100 TD/TT: 11/14/24 1100 Carry Out Clerk And Shelf Stocker: us Olamide Stevens MD IMG US PROCEDURES Fin al Result * BI Mammogram Diagnostic Tomosynthesis added left (11/14/2024 10:30 AM EDT) Anatomical Region Laterality Modality Breast Left Mammography 11/14/2024 10:3 0 AM EDT Narrative 11/14/2024 3:08 PM EDT [facility] [address] [place] [address] Mammography Report Signed Patient: Laisha Ye I MR#: M [id number] : 1970 Acct:[id number] Age/Sex: 54 / F ADM Date: 11/14/24 Loc: HO.MAMMO Attending Dr: Olamide Stevens MD Ordering Physician: Olamide Chandler MD Results: 3.6MProbably Benign Finding - Short 6 M F/U Suggested Date of Service: 11/14/24 Follow Up: 6 Month F/U Procedure(s): MM tomosynthesis added views L Accession Number(s): [id number] cc: Olamide Chandler MD EXAMINATION: MM DIAGNOSTIC [...] 11/14/24 1505 DD/ 1030 TD/TT: 11/14/24 1100 Carry Out Clerk And Shelf Stocker: Procedure Note Donotuseinterpreter, Image - 11/14/2024 [place] [facility] [address] [place] [address] Mammography Report Signed Patient: Laisha Ye [facility]#: M [id number] : 1970Acct:[id number] Age/Sex: 54 / FADM Date: 11/14/24 Loc: HO.MAMMO Attending Dr: Olamide Stevens MD Ordering Physician: Olamide Chandler MD Results: 3.6MProbably Benign Finding - Short 6 M F/U Suggested Date of Service: 11/14/24Follow Up: 6 Month F/U Procedure(s): MM tomosynthesis added views L Accession Number(s): [id number] cc: Olamide Chandler MD EXAMINATION: MM DIAGNOSTIC [...] 11/14/24 1505 DD/ 1030 TD/TT: 11/14/24 1100 Carry Out Clerk And Shelf Stocker: us Olamide Stevens MD IMG BI PROCEDURES Fin al Result * Hm Colonoscopy (04/12/2022 10:07 PM EDT) us Historical Provider HEALTH MAINTENANCE Final Result documented in this encounter Visit Diagnoses Not on filedocumented in this encounter Additional Health Concerns Assessment Noted Time PHQ-9 Depression Total Score: 024 9:17 AM EDT documented as of this encounter Care Teams Guard Immigration Relationship Specialty Start Date End Date Olamide Chandler MD [address] [place] [address] PCP - General Family Medicine 07/28/20 documented as of this encounter
--- OUTSIDE RECORDS SUMMARY | 2025-02-13 13:27 | XMS_ITS | Encounter Summary ---
Author Organization [employer] Address [address] [facility] 7 [place] [address] Care Team Providers Care Director Medicaid Name Role Phone Olamide Chandler MD Primary Care Provide r Reason for Visit * Reason Onset Date Comments Prior Authorization 11/28/2024 Encounter Details Date Type Department Care Team (Late st Contact Info) Description 11/28/2024 Telephone [facility] MEDICINE [address] [place], [place] [phone] Olamide Chandler MD [address] [place], [place] [phone] Prior Authorization (/) Social History Tobacco Use Types Packs/Day Years [...] encounter Miscellaneous Notes * Telephone Encounter - Nina White - 12/12/2024 2:06 PM EDT Tc from pt stating received denial letter from insurance. * Telephone Encounter - Nina White - 11/28/2024 12:19 PM EDT Tc from pt stating PA needed. Tirzepatide-Weight Management (Zepbound) 5 MG/0.5ML solution auto-injector documented in this encounter Plan of Treatment Upcoming Encounters Date Type Department Care Team (Late st Contact Info) Description 02/19/2025 11:15 AM EDT Office Visit [facility] MEDICINE [address] [place] [address] Olamide Chandler MD [address] [place], [place] [phone] documented as of this encounter Visit Diagnoses Not on filedocumented in this encounter Additional Health Concerns Assessment Noted Time PHQ-9 Depression Total Score: 25 024 9:17 AM EDT documented as of this encounter Care Teams Director Medicaid Relationship Specialty Start Date End Date Olamide Chandler MD [address] [place] [address] PCP - General Family Medicine 07/28/20 documented as of this encounter
--- OUTSIDE RECORDS SUMMARY | 2025-02-13 13:27 | XMS_ITS | Encounter Summary ---
Author Organization [facility] Address [address] [place] [address] Phone Care Team Providers Care Power Shear Operator Name Role Phone Olamide Chandler MD Primary Care Provide r Encounter Details Date Type Department Care Team (Late st Contact Info) Description 01/07/2025 Documentation Only [facility] [address] [place] [address] Alisha Briceno [address] [place] [phone] Social History Tobacco Use Types Packs/Day Years Used Date Smoking Tobacco: Never Comments Unknown Sex and Gender Information Value Date Recorded Sex Assigned at Not on file Legal Sex Female 4:37 PM EST Gender Identity Not on file Sexual Orientation Not on file documented as of this encounter Plan of Treatment Upcoming Encounters Date Type Department Care Team (Late st Contact Info) Description 01/02/2026 3:00 PM EDT Office Visit [facility] [address] [place] [phone] Mahendra Medel DO [address] [place] [address] [place] [phone] documented as of this encounter Visit Diagnoses Not on filedocumented in this encounter Care Teams Power Shear Operator Relationship Specialty Start Date End Date Olamide Chandler MD [address] [place] [phone] PCP - General Internal Medicine 10/27/23 documented as of this encounter
--- OUTSIDE RECORDS SUMMARY | 2025-02-13 13:27 | XMS_ITS | Encounter Summary ---
Author Organization [facility] Address [address] [place] [address] Phone Care Team Providers Care Shipfitter Helper Name Role Phone Olamide Chandler MD Primary Care Provide r Encounter Details Date Type Department Care Team (Late st Contact Info) Description 12/31/2024 Documentation Only [facility] [address] [place] [address] Mahendra Medel DO [address] [facility] [place] [place] [address] Social History Tobacco Use Types Packs/Day Years [...] Visit [facility] [address] [place] [address] Mahendra Medel DO [address] [facility] 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 mg/dL [facility] Albumin, Urine <3.0 Not Estab. ug/mL [facility] Albumin/Creatin ine Ratio <7 0 - 29 mg/g creat [facility] Comment: Normal: 0 - 29 Moderately increased: 30 - 300 Severely increased: >300 Urine Urine specimen obtained by clean catch procedure / Unknown 01/01/2025 9:37 AM EDT 01/01/2025 us Mahendra Medel DO LAB URINE ORDERABLES Final Resu lt [facility] [address] [place] [address] * (ABNORMAL) Renal function panel (01/01/2025 9:37 AM EDT) Glucose 105(H) 70 - 99 mg/dL [facility] BUN 10 6 - 24 mg/dL [facility] Creatinine 0.82 0.57 - 1.00 mg/dL [facility] eGFR CKD-EPI CR 2020 85 >59 mL/min/1.7 3 [facility] BUN/Creatinine Ratio 12 9 - 23 [facility] Sodium 138 134 - 144 mmol/L [facility] Potassium 4.4 3.5 - 5.2 mmol/L [facility] Chloride 101 96 - 106 mmol/L [facility] Bicarbonate (CO2) 22 20 - 29 mmol/L [facility] Calcium 9.1 8.7 - 10.2 mg/dL [facility] Albumin 4.1 3.8 - 4.9 g/dL [facility] Phosphorus 3.1 3.0 - 4.3 mg/dL [facility] Blood Venous blood / Unknown 01/01/2025 9:37 AM EDT 01/01/2025 us Mahendra Medel DO LAB BLOOD ORDERABLES Final Resu lt [facility] [address] [place] [phone] documented in this encounter Visit Diagnoses Diagnosis Chronic kidney disease, stage 2 (mild)- Primary Renal agenesis <Unilateral> documented in this encounter Care Teams Shipfitter Helper Relationship Specialty Start Date End Date Olamide Chandler MD [address] [place] [phone] PCP - General Internal Medicine 10/27/23 documented as of this encounter
--- OUTSIDE RECORDS SUMMARY | 2025-02-13 13:27 | XMS_ITS | Clinical Summary ---
Author Organization [facility] Address [address] [place] [address] Phone Care Team Providers Care Skid Road Worker Name Role Phone Unavailable Primary Care Provider Unavailabl e Encounters Date Type Department Care Team Description 01/24/2025 11:54 AM EDT - 01/24/2025 11:59 PM EDT Hospital Encounter [facility] MRI [address] [place] [address] Meningioma (CMS/HCC V24, CMS/HCC V28) [...] CONTRAST Routine 01/24/2025 12:31 PM EDT Meningioma ([facility] V24, [facility] V28) from Last 3 Months Results * [...] Signed Date: 01/25/2025 16:18 ET Workstation ID: [id number] Transcribed By: Self Edit Transcribed Date: 01/25/2025 [...] Signed Date: 01/25/2025 16:18 ET Workstation ID: [id number] Transcribed By: Self Edit Transcribed Date: 01/25/2025 16:09 ET us Olamide Stevens MD IMG MRI PROCEDURES Fi nal Result from Last 3 Months
--- OUTSIDE RECORDS SUMMARY | 2025-02-13 13:27 | XMS_ITS | Encounter Summary ---
Author Organization [employer] Address [address] [facility] 7t [place] [address] Care Team Providers Care Extension Professor Name Role Phone Olamide Chandler MD Primary Care Provide r Encounter Details Date Type Department Care Team ([facility] st Contact Info) Description 08/09/2024 Orders Only [facility] MEDICINE [address] [place], [place] [phone] Olamide Chandler MD [address] [place], [place] [phone] Social History Tobacco Use Types Packs/Day Years [...] Description 02/19/2025 11:15 AM EDT Office Visit [facility] MED[facility]INE [address] [place] [address] Olamide Chandler MD [address] [place] [address] documented as of this encounter Visit Diagnoses Not on filedocumented in this encounter Additional Health Concerns Assessment Noted Time PHQ-9 Depression Total Score: 25 024 9:17 AM EDT documented as of this encounter Care Teams Extension Professor Relationship Specialty Start Date End Date Olamide Chandler MD [address] [place] [address] PCP - General Family Medicine 07/28/20 documented as of this encounter
--- OUTSIDE RECORDS SUMMARY | 2025-02-13 13:27 | XMS_ITS | Encounter Summary ---
Author Organization [employer] Address [address] [facility] 7t [place] [address] Care Team Providers Care Anime Artist Name Role Phone Olamide Chandler MD Primary Care Provide r Encounter Details Date Type Department Care Team (Latest Contact Info) Description 02/12/2025 Travel Social History Tobacco Use Types Packs/Day [...] 11:15 AM EDT Office Visit [facility] MEDICINE [address] [place] [address] Olamide Chandler MD [address] [place] [address] documented as of this encounter Visit Diagnoses Not on filedocumented in this encounter Additional Health Concerns Assessment Noted Time PHQ-9 Depression Total Score: 25 024 9:17 AM EDT documented as of this encounter Care Teams Anime Artist Relationship Specialty Start Date End Date Olamide Chandler MD [address] [place] [phone] PCP - General Family Medicine 07/28/20 documented as of this encounter
== END 2025-02-13 13:01 | disposition home or self-care (01) ==
LOC: HO.US 13:00
PROVIDERS: PCP Internal Medicine; Visit Provider Internal Medicine
DX: R42 Dizziness and giddiness (principal); I10 Essential (primary) hypertension
CPT/HCPCS: 93880

== ENCOUNTER → 2025-02-13 13:02 | Outpatient (BNV) | payer OTHER, SELFPAY | PROVIDERS: PCP Internal Medicine; Visit Provider Radiology Diagnostic Radiology | DX: R42 Dizziness and giddiness (principal); I10 Essential (primary) hypertension | CPT/HCPCS: 93880 ==

== ENCOUNTER 2025-02-19 12:02 | Outpatient (REF) | payer OTHER, SELFPAY ==
--- OUTSIDE RECORDS SUMMARY | 2025-02-19 11:15 | XMS_ITS | Encounter Summary ---
Author Organization [employer] Address [address] [facility] 7t [place] [address] Care Team Providers Care Manager Reading Name Role Phone Olamide Chandler MD Primary Care Provide r Reason for Referral * PFT (Routine) - Pending Review Specialty Diagnoses / Procedures Referred By Quan jasso Referred To Contact Diagnoses Dyspnea, unspecified type Procedures Pulmonary Function Test Olamide Chandler MD [address] [place] [address] Phone: tel: fax: Referral ID Status Reason Start Date Expiration Date V isits Requested Visits Authorized [id number] Pending Review 02/19/2025 02/19/2026 1 1 Encounter Details Date Type Department Care Team (Late st Contact Info) Description 02/19/2025 11:15 AM EDT Office Visit [facility] [address] [place] [address] [phone] Olamide Chandler MD [address] [place], [place] [phone] Fibromyalgia (Primary Dx); Essential hypertension; Dyspnea, unspecified type; Burning sensation Social History Tobacco Use Types Packs/Day Years [...] AM EDT documented as of this encounter Last Filed Vital Signs Vital Sign Reading Time Taken Comments Blood Pressure 158/92 02/19/2025 11:13 AM EDT Pulse 117 02/19/2025 11:13 AM EDT Temperature 34.6 C (94.2 F) 02/19/2025 11:13 AM EDT Respiratory Rate 20 02/19/2025 11:13 AM EDT Oxygen Saturation 97% 02/19/2025 11:13 AM EDT Inhaled Oxygen Concentration - - Weight 84.5 kg (186 lb 3.2 oz) 02/19/2025 11:13 AM EDT Height 154.9 cm (5' 1 ) 02/19/2025 11:13 AM EDT Body Mass Index 35.18 02/19/2025 11:13 AM EDT documented in this encounter Plan of Treatment Scheduled Orders Name Type Priority Associated Diagnoses Orde r Schedule Pulmonary Function Test PFT Routine Dyspnea, unspecified type Expected: 02/19/2025, Expires: 08/19/2025 CBC auto differential Lab Routine Burning sensation Expected: 02/19/2025 (Approximate), Expires: 02/19/2026 Comprehensive Metabolic Panel Lab Routine Burning sensation Expected: 02/19/2025 (Approximate), Expires: 02/19/2026 Hemoglobin A1c Lab Routine Burning sensation Expected: 02/19/2025 (Approximate), Expires: 02/19/2026 TSH with Reflex to Free T4 Lab Routine Burning sensation Expected: 02/19/2025 (Approximate), Expires: 02/19/2026 RPR (Monitor) with Reflex to Titer Lab Routine Burning sensation Expected: 02/19/2025, Expires: 02/19/2026 Vitamin B12 (Cobalamin) and Folate Panel, Serum Lab Routine Burning sensation Expected: 02/19/2025, Expires: 02/19/2026 Lyme Disease Ab with Reflex to Blot (IgG, IgM) Lab Routine Burning sensation Expected: 02/19/2025, Expires: 02/19/2026 Homocysteine Lab Routine Burning sensation Expected: 02/19/2025 (Approximate), Expires: 02/19/2026 Methylmalonic Acid Lab Routine Burning sensation Expected: 02/19/2025 (Approximate), Expires: 02/19/2026 documented as of this encounter Visit Diagnoses Diagnosis Fibromyalgia- Primary Unspecified myalgia and myositis Essential hypertension Unspecified essential hypertension Dyspnea, unspecified type Burning sensation Disturbance of skin sensation documented in this encounter Additional Health Concerns Assessment Noted Time PHQ-9 Depression Total Score: 25 024 9:17 AM EDT documented as of this encounter Care Teams Manager Reading Relationship Specialty Start Date End Date Olamide Chandler MD [address] [place] [phone] PCP - General Family Medicine 07/28/20 documented as of this encounter
--- OUTSIDE RECORDS SUMMARY | 2025-02-19 13:23 | XMS_ITS | Encounter Summary ---
Author Organization [employer] Address [address] [facility] 7t [place] [address] Care Team Providers Care Nut Sorter Operator Name Role Phone Olamide Chandler MD Primary Care Provide r Encounter Details Date Type Department Care Team (Late st Contact Info) Description 09/01/2022 Orders Only [facility] MEDICINE [address] [place] [address] Renée Okeefe [place] Social History Tobacco Use [...] (04/17/2023 1:20 AM EDT) Color Urine Yellow [facility] Appearance Urine Clear [facility] PH 6.0 5.0 - 9.0 [facility] Glucose Urine UA Negative Negative mg/dL [facility] Urine Blood Negative Negative [facility] Specific Spring - Urine <=1.005 1.005 - 1.025 [facility] Urine Protein Negative Neg-Trace mg/dL [facility] Urine Ketones Negative Negative mg/dL [facility] Nitrite Urine Negative Negative [facility] Leukocyte Esterase Urine Trace(A) Negative [facility] RBC Urine 0-2 0 - 2 /HPF [facility] Urine WBC 0-5 0 - 5 /HPF [facility] Urine Squamous Epithelial Cell 0-2 0 - 2 /HPF [facility] Urine Bacteria None Seen None Seen [facility] Hyaline Casts, Urine 0-2 0 - 2 /LPF [facility] 04/17/2023 1:20 AM EDT 04/17/2023 1:23 AM EDT Narrative [facility] - 04/17/2023 1:42 AM EDT [id number], Clean Catch us [facility] External Provider LAB URI NE ORDERABLES Final Result [facility] [address] [place] [phone] * B Type Natriuretic Peptide (BNP) (04/17/2023 12:46 AM EDT) B Type Natriuretic Peptide 44 <100 pg/mL [facility] Comment:For those patients w ho are being treated with Natrecor(nesiritide, recombinant BNP), BNP testing should beperformed at least two hours post treatment in order toensure that only endogenous levels of BNP are detected. 04/17/2023 12:4 6 AM EDT 04/17/2023 12:53 AM EDT us [facility] External Provider LAB BLO OD ORDERABLES Final Result [facility] [address] [place] [phone] * BI Mammogram Screening Tomosynthesis Bilateral (09/09/2022 8:30 AM EDT) Anatomical Region Laterality Modality Breast Bilateral Mammography 09/09/2022 8:30 AM EDT Narrative 09/10/2022 11:56 AM EDT [facility] [address] [place] [address] Mammography Report Signed Patient: Laisha Ye I MR#: [id number] : 1970 Acct:[id number] Age/Sex: 51 / F ADM Date: 09/09/22 Loc: HO.MAMMO Attending Dr: Olamide Stevens MD Ordering Physician: Olamide Chandler MD Results: 1Negative Date of Service: 09/09/22 Follow Up: 1 Year From [facility] ina Mammogram Procedure(s): MM tomosynthesis screening BI Accession Number(s): [id number] cc: Olamide Chandler MD EXAMINATION: MM SCREENING [...] in OV> 09/10/22 1153 DD/ 0830 TD/TT: Meal Miller: SK Procedure Note Donotuseinterpreter, Image - 09/10/2022 [facility] [address] [place] [address] Mammography Report Signed Patient: Laisha Ye IMR#: [id number] : 1970Acct:[id number] Age/Sex: 51 / FADM Date: 09/09/22 Loc: HO.MAMMO Attending Dr: Olamide Stevens MD Ordering Physician: Olamide Chandler MDResults: 1Negative Date of Service: 09/09/22Follow Up: 1 Year From Orig inal Mammogram Procedure(s): MM tomosynthesis screening BI Accession Number(s): [id number] cc: Olamide Chandler MD EXAMINATION: MM SCREENING [...] in OV> 09/10/22 1153 DD/ 0830 TD/TT: Meal Miller: SAURAV [facility] External Provider IMG BI PROCEDURES Edited Result - Final documented in this encounter Visit Diagnoses Not on filedocumented in this encounter Care Teams Nut Sorter Operator Relationship Specialty Start Date End Date Olamide Chandler MD [address] [place] [phone] PCP - General Family Medicine 07/28/20 documented as of this encounter
--- OUTSIDE RECORDS SUMMARY | 2025-02-19 13:23 | XMS_ITS | Encounter Summary ---
Author Organization [employer] Address [address] [facility] 7t [place] [address] Care Team Providers Care Financial Consultant Name Role Phone Olamide Chandler MD Primary Care Provide r Encounter Details Date Type Department Care Team ([facility] st Contact Info) Description 08/18/2022 Telephone [facility] MEDICINE [address] [place], [place] [phone] Olamide Chandler MD [address] [place], [place] [phone] Social History Tobacco Use Types Packs/Day Years [...] on filedocumented in this encounter Care Teams Financial Consultant Relationship Specialty Start Date End Date Olamide Chandler MD [address] [place] [address] PCP - General Family Medicine 07/28/20 documented as of this encounter
--- OUTSIDE RECORDS SUMMARY | 2025-02-19 13:23 | XMS_ITS | Encounter Summary ---
Author Organization [employer] Address [address] [facility] 7t [place] [address] Care Team Providers Care World Renowned Chef And Restaurant Owner Name Role Phone Olamide Chandler MD Primary Care Provide r Encounter Details Date Type Department Care Team ([facility] st Contact Info) Description 08/09/2024 Orders Only [facility] MEDICINE [address] [place], [place] [phone] Olamide Chandler MD [address] [place], [place] [phone] Social History Tobacco Use Types Packs/Day Years [...] documented as of this encounter Care Teams World Renowned Chef And Restaurant Owner Relationship Specialty Start Date End Date Olamide Chandler MD [address] [place] [phone] PCP - General Family Medicine 07/28/20 documented as of this encounter
--- OUTSIDE RECORDS SUMMARY | 2025-02-19 13:23 | XMS_ITS | Clinical Summary ---
Author Organization [facility] Address [address] [place] [address] Phone Care Team Providers Care Glove Stitcher Name Role Phone Unavailable Primary Care Provider Unavailabl e Encounters Date Type Department Care Team Description 01/24/2025 11:54 AM EDT - 01/24/2025 11:59 PM EDT Hospital Encounter [facility] MRI [address] [place] [address] Meningioma (CMS/HCC V24, CMS/HCC V28) [...] 08/26/2023 Social Influencers of Health Screening 08/26/2023 Depression Screening 06/20/2024 COVID-19 Vaccine ( season) 2025 10/28/2023, 06/22/2021, 09/10/2020, Additional history exists Influenza Vaccine (#1) 2025 , 03/12/2022, 04/08/2021, [...] CONTRAST Routine 01/24/2025 12:31 PM EDT Meningioma ([facility] V24, [facility] V28) from Last 3 Months Results * [...] Signed Date: 01/25/2025 16:18 ET Workstation ID: [id number] Transcribed By: Self Edit Transcribed Date: 01/25/2025 [...] Signed Date: 01/25/2025 16:18 ET Workstation ID: [id number] Transcribed By: Self Edit Transcribed Date: 01/25/2025 16:09 ET us Olamide Stevens MD IMG MRI PROCEDURES Fi nal Result from Last 3 Months
--- OUTSIDE RECORDS SUMMARY | 2025-02-19 13:23 | XMS_ITS | Clinical Summary ---
Author Organization [facility], Address [address] [place] [address] [place] [address] Phone Care Team Providers Care Mental Health Specialist Name Role Phone Olamide Chandler MD [...] Communication [facility] [address] [place] [address] Kurtis Jauregui MA 01/08/2025 Office Communication [facility] [address] [place] [address] Mahendra Medel DO 01/07/2025 Documentation Only [facility] [address] [place] [address] Alisha Briceno 01/03/2025 3:00 PM EDT Office Visit [facility] [address] [place] [address] Mahendra Medel DO Chronic kidney disease, stage 2 (mild) (Primary Dx); Renal 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 [address] Health Maintenance Due Date Last Done Comments [...] 25-OH, Total 64.9 30.0 - 100.0 ng/mL [facility] Comment: Vitamin D deficiency has been defined by the [place] of Medicine and an Endocrine Society practice guideline as a level of serum 25-OH vitamin D less than 20 ng/mL (1,2). The Endocrine Society went on to further define vitamin D insufficiency as a level between 21 and 29 ng/mL (2). 1. IOM ([place] of Medicine). 2010. Dietary reference intakes for calcium and D. [place]: The National Academies Press. 2. Maddie MF, Derrek DAS, Josie FAULKNER, et al. Evaluation, treatment, and prevention of vitamin D deficiency: an Endocrine Society clinical practice guideline. JCEM. 2010; 96(7):1911-30. Blood Venous blood / Unknown 01/04/2025 10:15 AM EDT 01/04/2025 Mahendra Medel DO LAB BLOOD ORDERABLES Final Resu lt [employer] [facility] [address] [place] [address] * Magnesium (01/04/2025 10:15 AM EDT) Magnesium 2.0 1.6 - 2.3 mg/dL [facility] Blood Venous blood / Unknown 01/04/2025 10:15 AM EDT 01/04/2025 Mahendra Medel DO LAB BLOOD ORDERABLES Final Resu lt [facility] [address] [place] [address] * Vitamin B12 (01/04/2025 10:15 AM EDT) Pathologist [facility] Vitamin B-12 745 232 - 1,245 pg/mL [facility] Blood Venous blood / Unknown 01/04/2025 10:15 AM EDT 01/04/2025 Mahendra Medel DO LAB BLOOD ORDERABLES Final Resu lt Performing Organization Address [facility] Co de Phone Number [employer]Datacratic [facility] [address] [place] [address] * Urine Albumin / Creatinine Ratio (01/01/2025 9:37 AM EDT) [facility] Creatinine, Ur 40.8 Not Estab. mg/dL [facility] Albumin, Urine <3.0 Not Estab. ug/mL [facility] Albumin/Creatin ine Ratio <7 0 - 29 mg/g creat [facility] Comment: Normal: 0 - 29 Moderately increased: 30 - 300 Severely increased: >300 Urine Urine specimen obtained by clean catch procedure / Unknown 01/01/2025 9:37 AM EDT 01/01/2025 Mahendra Medel DO LAB URINE ORDERABLES Final Resu lt Performing Organization Address City/[facility]/ZIP Co de Phone Number [facility] [address] [place] [address] * (ABNORMAL) Renal function panel (01/01/2025 9:37 AM EDT) Pathologist [facility] Glucose 105(H) 70 - 99 mg/dL [facility] BUN 10 6 - 24 mg/dL [facility] Creatinine 0.82 0.57 - 1.00 mg/dL [facility] eGFR CKD-EPI CR 2020 85 >59 mL/min/1.7 3 [facility] BUN/Creatinine Ratio 12 9 - 23 [facility] Sodium 138 134 - 144 mmol/L [facility] Potassium 4.4 3.5 - 5.2 mmol/L [facility] Chloride 101 96 - 106 mmol/L [facility] Bicarbonate (CO2) 22 20 - 29 mmol/L [facility] Calcium 9.1 8.7 - 10.2 mg/dL [facility] Albumin 4.1 3.8 - 4.9 g/dL [facility] Phosphorus 3.1 3.0 - 4.3 mg/dL [facility] Blood Venous blood / Unknown 01/01/2025 9:37 AM EDT 01/01/2025 us Mahendra Medel DO LAB BLOOD ORDERABLES Final Resu lt [facility] [address] [place] [address] from Last 3 Months Insurance [employer] One [employer] Dual SNP ([id number]) NADIR WALKER [phone] Care Teams Mental Health Specialist Relationship Specialty Start Date End Date Olamide Chandler MD [address] [place] [address] [place] [phone] PCP - General Internal Medicine 10/27/23
--- OUTSIDE RECORDS SUMMARY | 2025-02-19 13:23 | XMS_ITS | Encounter Summary ---
Author Organization [employer] Address [address] [facility] [address] [place] [address] Care Team Providers Care Steam Roller Operator Name Role Phone Olamide Chandler MD Primary Care Provide r Encounter Details Date Type Department Care Team (Late st Contact Info) Description 10/19/2024 Orders Only [facility] [address] [place] [address] Provider, MD Maurisio Social History Tobacco Use [...] AM EDT Narrative 11/14/2024 3:08 PM EDT [facility]'s [address] [place] [address] Ultrasound Report Signed Patient: Laisha Ye I MR#: M [id number] : 1970 Acct:[id number] Age/Sex: 54 / F ADM Date: 11/14/24 Loc: [facility] Attending Dr: Olamide Stevens MD Ordering Physician: Olamide Chandler MD Date of Service: 11/14/24 Procedure(s): US breast LT limited mamm only Accession Number(s): [id number] cc: Olamide Chandler MD EXAMINATION: MM DIAGNOSTIC [...] 11/14/24 1505 DD/ 1100 TD/TT: 11/14/24 1100 Leach Cell Operator: Procedure Note Donotuseinterpreter, Image - 11/14/2024 [facility] [address] [place] [address] Ultrasound Report Signed Patient: Laisha Ye [facility]#: [id number] : 1970Acct:[id number] Age/Sex: 54 / FADM Date: 11/14/24 Loc: HO.MAMMO Attending Dr: Olamide Stevens MD Ordering Physician: Olamide Chandler MD Date of Service: 11/14/24 Procedure(s): US breast LT limited mamm only Accession Number(s): [id number] cc: Olamide Chandler MD EXAMINATION: MM DIAGNOSTIC [...] 11/14/24 1505 DD/ 1100 TD/TT: 11/14/24 1100 Leach Cell Operator: us Olamide Stevens MD IMG US PROCEDURES Fin al Result * BI Mammogram Diagnostic Tomosynthesis added left (11/14/2024 10:30 AM EDT) Anatomical Region Laterality Modality Breast Left Mammography 11/14/2024 10:3 0 AM EDT Narrative 11/14/2024 3:08 PM EDT [facility] [place] [address] Mammography Report Signed Patient: Laisha Ye I MR#: [id number] : 1970 Acct:[id number] Age/Sex: 54 / F ADM Date: 11/14/24 Loc: HO.MAMMO Attending Dr: Olamide Stevens MD Ordering Physician: Olamide Chandler MD Results: 3.6MProbably Benign Finding - Short 6 M F/U Suggested Date of Service: 11/14/24 Follow Up: 6 Month F/U Procedure(s): MM tomosynthesis added views L Accession Number(s): [id number] cc: Olamide Chandler MD EXAMINATION: MM DIAGNOSTIC [...] 11/14/24 1505 DD/ 1030 TD/TT: 11/14/24 1100 Leach Cell Operator: Procedure Note Donotuseinterpreter, Image - 11/14/2024 [facility] [address] [place] [address] Mammography Report Signed Patient: Laisha Ye IMR#: M [id number] : 1970Acct:[id number] Age/Sex: 54 / FADM Date: 11/14/24 Loc: HO.MAMMO Attending Dr: Olamide Stevens MD Ordering Physician: Olamide Chandler MD Results: 3.6MProbably Benign Finding - Short 6 M F/U Suggested Date of Service: 11/14/24Follow Up: 6 Month F/U Procedure(s): MM tomosynthesis added views L Accession Number(s): [id number] cc: Olamide Chandler MD EXAMINATION: MM DIAGNOSTIC [...] 11/14/24 1505 DD/ 1030 TD/TT: 11/14/24 1100 Leach Cell Operator: us Olamide Stevens MD IMG BI PROCEDURES Fin al Result * Hm Colonoscopy (04/12/2022 10:07 PM EDT) us Historical Provider HEALTH MAINTENANCE Final Result documented in this encounter Visit Diagnoses Not on filedocumented in this encounter Additional Health Concerns Assessment Noted Time PHQ-9 Depression Total Score: 25 024 9:17 AM EDT documented as of this encounter Care Teams Steam Roller Operator Relationship Specialty Start Date End Date Olamide Chandler MD [address] [place] [address] PCP - General Family Medicine 07/28/20 documented as of this encounter
--- OUTSIDE RECORDS SUMMARY | 2025-02-19 13:23 | XMS_ITS | Clinical Summary ---
Author Organization [employer] Address [address] [facility] [address] [place] [address] Care Team Providers Care Supervisor Electronic Coils Name Role Phone Olamide Chandler MD Primary [...] 20 MG TABLET 023 Active sodium chloride (Castro Nasal [place]) 0.65 % nasal sprayIndications: COVID-19 1-2 sprays [...] or itching 40 capsule 1 024 Active ammonium lactate (Lac-Hydrin) 12 % lotionIndications [...] MOUTH DAILY 90 capsule 1 025 Active levothyroxine (Synthroid, Levoxyl) 75 MCG [...] per week. 2 mL 2 025 Active fluticasone (Flonase) 50 MCG/ACT nasal sprayIndications: Seasonal allergies SHAKE LIQUID AND USE 2 SPRAYS IN EACH NOSTRIL EVERY MORNING NEEDED FOR ALLERGIES 48 g 025 Active carvedilol (Coreg) 6.25 MG tabletIndications :Essential hypertension Take 1 tablet (6.25 mg) by mouth with breakfast and with evening meal. 60 tablet 11 025 2025 Active carvedilol (Coreg) 6.25 MG tabletIndications :Essential hypertension Take 1 tablet (6.25 mg) by mouth with breakfast and with evening meal. 60 tablet 11 024 2024 Discontinued(R eorder (will not trigger notification to Pharmacy)) fluticasone (Flonase) 50 MCG/ACT nasal sprayIndications: Seasonal allergies SHAKE LIQUID AND USE 2 SPRAYS IN EACH NOSTRIL EVERY MORNING NEEDED FOR ALLERGIES 48 g 025 2024 Discontinued Active Problems Problem Noted Date Diagnosed Date Fibromyalgia 02/19/2025 Dyspnea 02/19/2025 Burning sensation 02/19/2025 Stage 3 chronic kidney disea se, unspecified [...] PM EDT): Patient is being follow by chicken catcher I will c/w zepbound 2.5mg weekly, [...] It seems to be Poison James or [place] rash. We discuss about avoiding scratching, use [...] will follow-up with them tomorrow, will order [facility] to check electrolytes that may be responsible [...] Encounters Date Type Department Care Team Description 02/19/2025 11:15 AM EDT Office Visit [facility] [address] [place] [phone] Olamide Chandler MD Fibromyalgia (Primary Dx); Essential hypertension; Dyspnea, unspecified type; Burning sensation 02/19/2025 Travel 02/14/2025 Refill [facility] [address] [place], [place] [phone] Olamide Chandler MD Seasonal allergies 02/12/2025 Travel 02/08/2025 Telephone [facility] [address] [place] [phone] Olamide Chandler MD 01/18/2025 11:30 AM EDT Office Visit [address] [address] Olamide Chandler MD Prediabetes (Primary Dx); Essential hypertension; Stage 3 chronic kidney disease, unspecified whether stage 3a or 3b CKD (CMS/HCC); Meningioma, cerebral ([facility]/HCC); Anxiety with depression; Class 3 severe obesity due to excess calories with serious comorbidity and body mass index (BMI) of 45.0 to 49.9 in adult; Dietary counseling; Exercise counseling 01/18/2025 Travel 01/17/[address] [address] Olamide Chandler MD Chart Prep 01/15/[address] [address] Olamide Chandler MD Gastroesophageal reflux disease, unspecified whether esophagitis present 01/11/2025 Orders Only GENERIC EXTERNAL DATA DEPARTMENT Provider, Generic External Data 01/11/2025 Travel 01/08/2025 Patient Outreach [address] [address] Olamide Chandler MD Pre-visit Planning (SDOH screening negative and tobacco screening negative) 01/07/[address] [address] Olamide Chandler MD Med Refill 01/02/2025 11:00 AM EDT Office Visit [address] [address] Brittney Graham MD Lightheadedness (Primary Dx); Essential hypertension; Acquired hypothyroidism 01/02/2025 Travel 01/01/2025 Travel 12/31/[address] [address] Olamide Chandler MD Nurse Triage 12/04/[address] [address] Olamide Chandler MD Med Refill 12/04/2024 Orders Only [address] [address] Olamide Chandler MD 12/03/2024 Refill [facility] [address] [place], [place] [phone] Olamide Chandler MD Class 3 severe obesity due to excess calories with serious comorbidity and body mass index (BMI) of 45.0 to 49.9 in adult 11/28/2024 Telephone [facility] [address] [place] [address] Olamide Chandler MD Prior Authorization (/) 11/27/2024 Refill [facility] [address] [place], [place] [phone] Olamide Chandler MD Class 3 severe obesity due to excess calories with serious comorbidity and body mass index (BMI) of 45.0 to 49.9 in adult 11/23/2024 Telephone [facility] [address] [place], [place] [phone] Olamide Chandler MD Prior Authorization (CCA PA: Zepbound 2.5 mg) 11/20/2024 Refill [facility] [address] [place], [place] [phone] Olamide Chandler MD Other specified hypothyroidism from Last 3 Months Immunizations Immunization Administration [...] Mass Index 35.18 02/19/2025 11:13 AM EDT Plan of Treatment Health Maintenance Due Date Last Done Comments CT Colonography 1971 FIT DNA/Cologuard 1971 FIT 1971 FOBT 1970 HIV Screening 1970 Sigmoidoscopy 1970 Hepatitis C Screening 10/21/1989 Depression Monitoring 09/09/2024 03/12/2024, 024 COVID-19 Vaccine ( season) 2025 10/28/2023, 06/22/2021, 09/10/2020, Additional history exists Influenza Vaccine (#1) 2025 , 03/12/2022, 04/08/2021, Additional history exists Mammogram 11/14/2025 11/14/2024, 0412/2024, 09/15/2023, Additional history exists SDOH Screening 01/08/2026 01/08/2025 Disability Screening 01/11/2026 01/11/2025 Alcohol/Substance Use Screening 01/18/2026 01/18/2025 Diabetes: Hemoglobin A1C 01/18/2026 025, 03/29/2024, 08/18/2023, Additional history exists Tobacco Screening 02/19/2026 02/19/2025 Colonoscopy 04/12/2027 04/12/2022 Colorectal Cancer Screening 04/12/2027 [...] Procedure Name Priority Date/Time Associated Diagnosis Comments VASC US CAROTID ARTERY DUPLEX BILATERAL Routine 02/14/2025 8:28 AM EDT Lightheadedness Essential hypertension MR BRAIN WO CONTRAST Routine 01/24/2025 Meningioma, [...] LIMITED LEFT Routine 11/14/2024 11:00 AM EDT LIPID PANEL WITH REFLEX TO DIRECT LDL Routine 03/29/2024 9:50 AM EDT Essential hypertension IMAGE-GUIDED PAP W/AGE BASED SCR,W/CT/NG/TRICH Routine 10/29/2022 11:29 AM EDT Encounter for Papanicolaou smear for cervical cancer screening HM COLONOSCOPY Routine 04/12/2022 10:07 PM EDT from Last 3 Months or Most Recently Relevant to Health Maintenance Results * Vascular US carotid artery duplex bilateral (02/14/2025 8:28 AM EDT) 02/14/2025 8:28 AM EDT Narrative [facility] - 02/14/2025 8:29 AM EDT [address] [address] Ultrasound Report Signed Patient: Laisha Ye I MR#: M [id number] : 1970 Acct:[id number] Age/Sex: 54 / F ADM Date: 02/13/25 Loc: HO.US Attending Dr: Brittney Graham MD Ordering Physician: Brittney Graham MD Date of Service: 02/13/25 Procedure(s): US carotid duplex BI Accession Number(s): [id number] cc: Olamide Chandler MD; Brittney Graham MD CLINICAL HISTORY: Uncontrolled hypertension persistent dizziness US Bilateral Carotid Duplex Comparison: None provided Findings: Minimal to mild plaque formation within the carotid arteries. Peak systolic velocities: Right CCA: 112 cm/s. Right ICA: 72 cm/s. ICA/CCA ratio: Normal Right ECA: Unremarkable Right vertebral artery flow antegrade Left CCA: 87 cm/s. Left ICA: 76cm/s. ICA/CCA ratio: Normal Left ECA: Unremarkable Left vertebral artery flow antegrade IMPRESSION: No hemodynamically significant stenosis within the internal carotid arteries. This document has been electronically signed by: Bakari Vann MD on 02/14/2025 08:28:22 Dictated By: Bakari Vann MD Signed By: <Electronically signed by Bakari Vann MD in OV> 02/14/25828 DD/ 7 TD/TT: 02/14/25827 Web Support Engineer: Procedure Note Donotuseinterpreter, Image - 02/14/2025 [place] [address] Ultrasound Report Signed Patient: Laisha Ye IMR#: M [id number] : 1970Acct:[id number] Age/Sex: 54 / FADM Date: 02/13/25 Loc: HO.US Attending Dr: Brittney Graham MD Ordering Physician: Brittney Graham MD Date of Service: 02/13/25 Procedure(s): US carotid duplex BI Accession Number(s): [id number] cc: Olamide Chandler MD; Brittney Graham MD CLINICAL HISTORY: Uncontrolled hypertension persistent dizziness US Bilateral Carotid Duplex Comparison: None provided Findings: Minimal to mild plaque formation within the carotid arteries. Peak systolic velocities: Right CCA: 112 cm/s. Right ICA: 72 cm/s. ICA/CCA ratio: Normal Right ECA: Unremarkable Right vertebral artery flow antegrade Left CCA: 87 cm/s. Left ICA: 76cm/s. ICA/CCA ratio: Normal Left ECA: Unremarkable Left vertebral artery flow antegrade IMPRESSION: No hemodynamically significant stenosis within the internal carotid arteries. This document has been electronically signed by: Bakari Vann MD on 02/14/2025 08:28:22 Dictated By: Bakari Vann MD Signed By: <Electronically signed by Bakari Vann MD in OV> 02/14/25828 DD/ 7 TD/TT: 02/14/25827 Web Support Engineer: Brittney Graham MD CV VASCULAR PROCEDURES F inal Result [facility] [address] [place] [phone] * MR Brain w/o Contrast (01/24/2025) Anatomical Region Laterality Modality Brain Magnetic Resonan ce Olamide Stevens MD IMG MRI PROCEDURES Fi nal Result * POCT HGB A1C (01/18/2025 12:37 PM EDT) Hemoglobin A1C 5.4 4.0 - 5.7 % Blood 01/18/2025 12:3 7 PM EDT Olamide Stevens MD POINT OF CARE TEST EN TER/EDIT ORDERABLES Final Result * POCT Glucose (01/18/2025 12:37 PM EDT) Glucose Blood, POC 136 60 - 200 mg/dL Blood Capillary blood specimen / Unknown 01/18/2025 12:37 PM EDT Olamide Stevens MD POINT OF CARE TEST EN TER/EDIT ORDERABLES Final Result * High Sensitivity Troponin I (01/11/2025 11:20 AM EDT) TROPONIN I HIGH SENSITIVITY <2.7 <3.5 - 17.0 ng/L [facility] Comment:The Tristan high sens itivity Troponin-I results should beused in conjunction with other diagnostic information suchas ECG, clinical observations and information, and patientsymptoms to aid in the diagnosis of HI. 01/11/2025 11:2 0 AM EDT 01/11/2025 11:23 AM EDT us Generic External Data Provider LAB BLOOD ORDERAB LES Final Result [facility] [address] [place] [address] [phone] * SARS-CoV-2 RNA, Influenza A/B, and RSV RNA, Ql NAAT (01/11/2025 11:20 AM EDT) Pathologist [facility] Influenza A PCR NEGATIVE Negative [facility] Influenza B PCR NEGATIVE Negative [facility] Resp Syncy Virus RNA Qual PCR NEGATIVE Negative [facility] SARS COV2 PCR NEGATIVE Negative [facility] Comment:All test results mus t [...] use by authorized laboratories.Testing performed on the [employer] GeneXpert utilizingreal-time RT-PCR.All SARS CoV2 and positive influenza A/B results arereported to [facility]. 01/11/2025 11:2 0 AM EDT 01/11/2025 11:23 AM EDT us Generic External Data Provider LAB MICROBIOLOGY - GENERAL ORDERABLES Final Result [facility] [address], [place] [phone] * (ABNORMAL) CBC auto differential (01/11/2025 11:20 AM EDT) White Blood Count 10.0 4.8 - 10.8 X10*3/uL [facility] Red Blood Count 4.67 4.20 - 5.50 X10*6/uL [facility] Hemoglobin 13.6 12.0 - 16.0 g/dl [facility] Hematocrit 41.0 37.0 - 47.0 % [facility] Mean Corpuscular Volume 87.8 80.0 - 98.0 fL [facility] Mean Corpuscular Hemoglobin 29.1 27.0 - 33.0 pg [facility] Mean Corpuscular HGB Conc 33.2 31.0 - 35.0 g/dl [facility] Red Cell Distribution Width 12.5 11.0 - 16.0 % [facility] Platelet Count 310 160 - 400 X10*3/uL [facility] Mean Platelet Volume 9.7 9.4 - 12.3 fL [facility] Neutrophils Percent Auto 80.0(H) 45 - 73 % [facility] Imm Gran Pct Auto 0.3 0.0 - 0.4 % [facility] Lymphocytes Percent Auto 13.3(L) 20 - 40 % [facility] Monocytes Percent Auto 5.2 2 - 11 % [facility] Eosinophils Percent Auto 0.6 0 - 4 % [facility] Basophils Percent Auto 0.6 0 - 2 % [facility] NRBC Pct Auto 0.0 0.0 - 0.2 /100WBC [facility] Neutrophils Absolute Auto 8.0 2.0 - 8.3 x10*3/uL [facility] Imm Gran Abs Auto 0.03 0.00 - 0.03 X10*3/uL [facility] Lymphocytes Absolute Auto 1.3 1.2 - 4.9 X10*3/uL [facility] Monocytes Absolute Auto 0.5 0.1 - 1.2 X10*3/uL [facility] Eosinophils Absolute Auto 0.1 0.0 - 0.4 X10*3/uL [facility] Basophils Absolute Auto 0.1 0.0 - 0.2 X10*3/uL [facility] NRBC Abs Auto 0.000 0.0 - 0.012 X10*3/uL [facility] 01/11/2025 11:2 0 AM EDT 01/11/2025 11:23 AM EDT Generic External Data Provider LAB BLOOD ORDERAB LES Final Result Performing Organization Address [facility]/ZIP Co de Phone Number [facility] [address] [place] [phone] * Magnesium (01/11/2025 11:20 AM EDT) Pathologist [facility] Magnesium 2.2 1.6 - 2.6 mg/dL [facility] 01/11/2025 11:2 0 AM EDT 01/11/2025 11:23 AM EDT Fancred External Data Provider LAB BLOOD ORDERAB LES Final Result Performing Organization Address [facility] de Phone Number [facility] [address] [place] [phone] * (ABNORMAL) Comprehensive Metabolic Panel (01/11/2025 11:20 AM EDT) Sodium 140 135 - 145 mmol/L [facility] Potassium 4.1 3.3 - 5.1 mmol/L [facility] Chloride 104 96 - 108 mmol/L [facility] Carbon Dioxide 30(H) 22 - 29 mmol/L [facility] Anion Gap 10(L) 12 - 20 [facility] Urea Nitrogen (BUN) 15 9 - 16 mg/dL [facility] Creatinine, Serum 0.79 0.5 - 1.4 mg/dL [facility] Creatinine Clr Calc Pharmacy 82.0 [facility] Comment:Provided height and weight: 154.94 cm,86.183 kg.eGFR (calculated from the MDRD study equation) and eCrCl(calculated from the Cockcroft-Gault equation) are based ondifferent parameters and may not yield comparable results.If eCrCl result is absurd, please check patient'sheight/weight. Estimated Glomerular Filt Rate >60 [facility] Comment:Chronic Kidney Disea se: Estimated GFR < 60 mL/min/1.30t3Yqtapb Kidney Disease: Estimated GFR < 15 mL/min/1.73m2 Glucose 120(H) 60 - 115 mg/dL [facility] Calcium 9.5 8.4 - 10.2 mg/dL [facility] Bilirubin, Total 0.4 0.0 - 1.0 mg/dL [facility] Aspartate Amino Transferase 24 5 - 31 U/L [facility] Alanine Aminotransferase 17 0 - 31 U/L [facility] Total Protein 7.8 6.5 - 8.0 g/dL [facility] Albumin Level 4.2 3.5 - 5.0 g/dL [facility] Alkaline Phosphatase 73 39 - 117 U/L [facility] 01/11/2025 11:2 0 AM EDT 01/11/2025 11:23 AM EDT us Generic External Data Provider LAB BLOOD ORDERAB LES Final Result [facility] [address] [place] [phone] * TSH with Reflex to Free T4 (01/02/2025 11:37 AM EDT) TSH reflex Free T4 1.18 0.32 - 4.0 uIU/mL [facility] Blood 01/02/2025 11:3 7 AM EDT 01/02/2025 1:47 PM EDT us Brittney Graham MD LAB BLOOD ORDERABLES Fin al Result Performing Organization Address [facility] Co de Phone Number [facility] [address] [place] [phone] * (ABNORMAL) Basic Metabolic Panel (01/02/2025 11:37 AM EDT) Sodium 138 135 - 145 mmol/L [facility] Potassium 3.9 3.3 - 5.1 mmol/L [facility] Chloride 104 96 - 108 mmol/L [facility] Carbon Dioxide 27 22 - 29 mmol/L [facility] Anion Gap 11(L) 12 - 20 [facility] Urea Nitrogen (BUN) 9 9 - 16 mg/dL [facility] Creatinine, Serum 0.83 0.5 - 1.4 mg/dL [facility] Estimated Glomerular Filt Rate >60 [facility] Comment:Chronic Kidney Disea se: Estimated GFR < 60 mL/min/1.94z7Xyioia Kidney Disease: Estimated GFR < 15 mL/min/1.73m2 Glucose 116(H) 60 - 115 mg/dL [facility] Calcium 9.3 8.4 - 10.2 mg/dL [facility] Blood Venous blood specimen / Unknown 01/02/2025 11:37 AM EDT 01/02/2025 1:47 PM EDT us Brittney Graham MD LAB BLOOD ORDERABLES Fin al Result Performing Organization Address City/[facility]/ZIP Co de Phone Number [facility] [address] [place] [phone] * BI US Breast Limited Left (11/14/2024 11:00 AM EDT) Anatomical Region Laterality Modality Breast Left Ultrasound 11/14/2024 11:0 0 AM EDT Narrative 11/14/2024 3:08 PM EDT [facility] [address] [place] [address] Ultrasound Report Signed Patient: Laisha Ye I MR#: M [id number] : 1970 Acct:[id number] Age/Sex: 54 / F ADM Date: 11/14/24 Loc: HO.MAMMO Attending Dr: Olamide Stevens MD Ordering Physician: Olamide Chandler MD Date of Service: 11/14/24 Procedure(s): US breast LT limited mamm only Accession Number(s): [id number] cc: Olamide Chandler MD EXAMINATION: MM DIAGNOSTIC [...] 11/14/24 1505 DD/ 1100 TD/TT: 11/14/24 1100 Web Support Engineer: Procedure Note Donotuseinterpreter, Image - 11/14/2024 [facility] [address] [place] [address] Ultrasound Report Signed Patient: Laisha Ye IMR#: M [id number] : 1970Acct:[id number] Age/Sex: 54 / FADM Date: 11/14/24 Loc: HO.MAMMO Attending Dr: Olamide Stevens MD Ordering Physician: Olamide Chandler MD Date of Service: 11/14/24 Procedure(s): US breast LT limited mamm only Accession Number(s): [id number] cc: Olamide Chandler MD EXAMINATION: MM DIAGNOSTIC [...] 11/14/24 1505 DD/ 1100 TD/TT: 11/14/24 1100 Web Support Engineer: us Olamide Stevens MD IMG US PROCEDURES Fin al Result * (ABNORMAL) Lipid Panel with Reflex to Direct LDL (03/29/2024 9:50 AM EDT) Triglycerides 89 <150 mg/dL [facility] Comment:Desirable Triglyceri de: less than 150 mg/dLBorderline High Triglyceride 150-199 mg/dLHigh Triglyceride: 200-499 mg/dLVery High Triglyceride: greater than or equal to 5OO mg/dL Cholesterol 168 <200 mg/dL [facility] Comment:Desirable Cholestero l: less than 200 mg/dLBorderline High Cholesterol: 200-239 mg/dLHigh Cholesterol: greater than 239 mg/dL LDL Cholesterol Calculated 107(H) <100 mg/dL [facility] Comment:Desirable LDL: less than 100 mg/dLNear Optimal/Above Optimal LDL: 110- 129 mg/dLBorderline High LDL: 130-159 mg/dLHigh LDL: 160-189 mg/dLVery High LDL: greater than or equal to 190 mg/dL HDL Cholesterol 44 >40 mg/dL [facility] Comment:Desirable HDL: great er than 40 mg/dL Note: This HDL assay may give artificially low results in patients with liver disease. Blood 03/29/2024 9:50 AM EDT 03/29/2024 11:08 AM EDT Olamide Stevens MD LAB BLOOD ORDERABLES Final Result [facility] [address] [place] [address] [phone] * Image-Guided Pap with Age-Based Screening??with CT/NG,??Trichomonas (10/29/2022 11:29 AM EDT) Comment [employer] Comment: This order for age-based cervical cancer and STI screening follows ACOG guidelines(PB 168, 140, SUI528). See individual assays for performing site location. Clinical Information: 52 Y/O F NO PREVIOUS ABNORMALITY C 121castt LMP: NONE GIVEN 121castt Prev. PAP: NONE GIVEN 121castt Prev. BX: NONE GIVEN 121castt SOURCE: None given 121castt Statement Of Adequacy: [employer] Comment: Satisfactory for evaluation. Endocervical/transformation zone component absent. Interpretation/Re sult: Negative for intraepithelial lesion or malignancy. [employer] COMMENT: This Pap test has been evaluated with computer assisted technology. [facility] [employer] Equipment Tech: Amalia Archive Systemst Comment: EXJ, CT(ASCP) CT Screening Location: [address] [address] (Always Message) [facility] [employer] Comment: EXPLANATORY NOTE: The Pap is a [...] HPV nRNA E6/E7 Not Detected Not Detected 121castt Comment: Methodology: Windows Support Engineer-Mediated Amplification This assay detects E6/E7 viral messenger RNA (mRNA) from 14 high-risk HPV types (16,18,31,33,35,39,45,51,52,56,58,59,66,68). Cervical sources are required for HPV testing. If a vaginal source from a patient who has had a total hysterectomy with removal of cervix was submitted, please contact the testing laboratory for alternative testing options. For additional information, please refer to http://[employer].URX/faq/MDG065p6 (This link if provided for information/ educational purposes only.) Chlamydia trachomatis RNA, TMA, Urogenital NOT DETECTED NOT DETECTED [employer] Neisseria gonorrhoeae RNA, TMA, Urogenital NOT DETECTED NOT DETECTED [employer] (Always Message) [email or web address] Comment: The analytical performance characteristics of this assay, when used to test SurePath(TM) specimens have been determined by [employer]. The modifications have not been cleared or approved by the FDA. This assay has been validated pursuant to the CLIA regulations and is used for clinical purposes. For additional information, please refer to https://[employer].URX/faq/ERY173 (This link is being provided for information/ educational purposes only.) Trichomonas vaginalis, QL, TMA, PAP Vial NOT DETECTED NOT DETECTED [employer] Comment: The analytical performance characteristics of this assay have been determined by [employer]. The modifications have not been cleared or approved by the FDA. This assay has been validated pursuant to the CLIA regulations and is used for clinical purposes. For additional information, please refer to http://[employer]/ faq/Trichomonastma (This link is being provided for information/ educational purposes only.) Pap Vial 10/29/2022 11:2 9 AM EDT 10/31/2022 4:55 PM EDT Olamide Stevens MD LAB CYTOLOGY ORDERABL ES Final Result [facility] [address], [place] [address] [employer] [address] [place] [phone] * Hm Colonoscopy (04/12/2022 10:07 PM EDT) us Historical Provider HEALTH MAINTENANCE Final Result from Last 3 Months or Most Recently Relevant to Health Maintenance Insurance [facility] < 66 [address] [id number] Care Teams Supervisor Electronic Coils Relationship Specialty Start Date End Date Olamide Chandler MD [address] [place] [address] PCP - General Family Medicine 07/28/20
--- OUTSIDE RECORDS SUMMARY | 2025-02-19 13:23 | XMS_ITS | Encounter Summary ---
Author Organization [employer] Address [address] [place] [address] Care Team Providers Care Adhesion Tester Name Role Phone Olamide Chandler MD Primary Care Provide r Reason for Visit * Reason Comments Med Refill Encounter Details Date Type Department Care Team (Late st Contact Info) Description 11/03/2024 Refill [facility] [address] [place], [place] [phone] Olamide Chandler MD [address] [place], [place] [phone] Class 3 severe obesity due to excess [...] documented as of this encounter Care Teams Adhesion Tester Relationship Specialty Start Date End Date Olamide Chandler MD [address] [place] [phone] PCP - General Family Medicine 07/28/20 documented as of this encounter
--- OUTSIDE RECORDS SUMMARY | 2025-02-19 13:23 | XMS_ITS | Encounter Summary ---
Author Organization [employer] Address 75 [facility] 7 [place] [address] Care Team Providers Care Stock Trader Name Role Phone Olamide Chandler MD Primary Care Provide r Reason for Visit * Reason Onset Date Comments Pre-visit Planning 03/02/2024 Encounter Details Date Type Department Care Team ([facility] st Contact Info) Description 03/02/2024 Telephone [facility] MED[facility]INE [address] [place], [place] [phone] Olamide Chandler MD 230 [place], [place] [phone] Pre-visit Planning Social History Tobacco Use Types [...] documented as of this encounter Care Teams Stock Trader Relationship Specialty Start Date End Date Olamide Chandler MD [address] [place] [address] PCP - General Family Medicine 07/28/20 documented as of this encounter
--- OUTSIDE RECORDS SUMMARY | 2025-02-19 13:24 | XMS_ITS | Encounter Summary ---
Author Organization [employer] Address 75 [facility] 7 [place] [address] Care Team Providers Care Heel Coverer Name Role Phone Olamide Chandler MD Primary Care Provide r Reason for Visit * Reason Onset Date Comments Med Refill 12/04/2024 Encounter Details Date Type Department Care Team ([facility] st Contact Info) Description 12/04/2024 Telephone [facility] MED[facility]INE 230 [place], [place] [phone] Olamide Chandler MD 230 [place], [place] [phone] Med Refill Social History Tobacco Use Types [...] Please review and resubmit Contact pt at [phone] Need program director air talent * Telephone Encounter - Bea Escobar LPN - 12/04/2024 2:48 PM EDT Medication was sent to [facility] #[id number] today. * Telephone Encounter - Joselyn Boyer - 12/04/2024 2:46 PM EDT TC from pt requesting medication refill. Medications needing refill : Zepbound 2.5 MG/0.5ML solution auto-injector To be sent to: [id number] - [place] [facility] signed by Joselyn Boyer at 12/04/2024 2:46 PM EDT documented in this encounter Plan of Treatment Not on file documented as of this encounter Visit Diagnoses Not on filedocumented in this encounter Additional Health Concerns Assessment Noted Time PHQ-9 Depression Total Score: 25 024 9:17 AM EDT documented as of this encounter Care Teams Heel Coverer Relationship Specialty Start Date End Date Olamide Chandler MD [address] [place] [address] PCP - General Family Medicine 07/28/20 documented as of this encounter
--- OUTSIDE RECORDS SUMMARY | 2025-02-19 13:24 | XMS_ITS | Encounter Summary ---
Author Organization [employer] Address 75 [facility] 7t [place] [address] Care Team Providers Care Ferry Engineer Name Role Phone Olamide Chandler MD Primary Care Provide r Reason for Visit * Reason Comments Med Refill Encounter Details Date Type Department Care Team (Late st Contact Info) Description 11/27/2024 Refill [facility] MEDICINE 230 [place], [place] [phone] Olamide Chandler MD 230 [place], [place] [phone] Class 3 severe obesity due to excess [...] documented as of this encounter Care Teams Ferry Engineer Relationship Specialty Start Date End Date Olamide Chandler MD [address] [place] [address] PCP - General Family Medicine 07/28/20 documented as of this encounter
--- OUTSIDE RECORDS SUMMARY | 2025-02-19 13:24 | XMS_ITS | Encounter Summary ---
Author Organization [employer] Address 75 [facility] 7t [place] [address] Care Team Providers Care Under Ground Miner Name Role Phone Olamide Chandler MD Primary Care Provide r Encounter Details Date Type Department Care Team (Latest Contact Info) Description 02/19/2025 Travel Social History Tobacco Use Types Packs/Day [...] documented as of this encounter Care Teams Under Ground Miner Relationship Specialty Start Date End Date Olamide Chandler MD [address] [place] [address] PCP - General Family Medicine 07/28/20 documented as of this encounter
--- OUTSIDE RECORDS SUMMARY | 2025-02-19 13:24 | XMS_ITS | Encounter Summary ---
Author Organization [employer] Address 75 [facility] 7 [place] [address] Care Team Providers Care Benefits Analyst Name Role Phone Olamide Chandler MD Primary Care Provide r Reason for Visit * Reason Onset Date Comments Med Refill 01/07/2025 Encounter Details Date Type Department Care Team ([facility] st Contact Info) Description 01/07/2025 Telephone [facility] 230 [place], [place] [phone] Olamide Chandler MD 230 [place], [place] [phone] Med Refill Social History Tobacco Use Types [...] - 01/07/2025 1:30 PM EDT Last seen 7.16. * Telephone Encounter - Federico Marie - 01/07/2025 1:12 PM EDT TC from pt requesting medication refill. Medications needing refill : Zepbound 2.5 MG/0.5ML solution auto-injector To be sent to: [facility] #[id number] - [address] AT [facility] documented in this encounter Plan of Treatment [...] documented as of this encounter Care Teams Benefits Analyst Relationship Specialty Start Date End Date Olamide Chandler MD 230 [place] [address] PCP - General Family Medicine 07/28/20 documented as of this encounter
--- OUTSIDE RECORDS SUMMARY | 2025-02-19 13:24 | XMS_ITS | Encounter Summary ---
Author Organization [employer] Address 75 [facility] 7 [place] [address] Care Team Providers Care Illusionist Name Role Phone Olamide Chandler MD Primary Care Provide r Reason for Visit * Reason Onset Date Comments Nurse Triage 12/31/2024 Encounter Details Date Type Department Care Team (Late st Contact Info) Description 12/31/2024 Telephone [facility] MEDICINE 230 [place], [place] [phone] Olamide Chandler MD 230 [place], [place] [phone] Nurse Triage Social History Tobacco Use Types [...] reports drinking adequate liquids. Pt reports seeing business operations consultant last week , at which time BP [...] caller accepted this outcome. Contact pt at [phone] documented in this encounter Plan of Treatment Not on file documented as of this encounter Visit Diagnoses Not on filedocumented in this encounter Additional Health Concerns Assessment Noted Time PHQ-9 Depression Total Score: 25 024 9:17 AM EDT documented as of this encounter Care Teams Illusionist Relationship Specialty Start Date End Date Olamide Chandler MD 230 [place] [address] PCP - General Family Medicine 07/28/20 documented as of this encounter
--- OUTSIDE RECORDS SUMMARY | 2025-02-19 13:24 | XMS_ITS | Encounter Summary ---
Author Organization [employer] Address 75 [facility] 7 [place] [address] Care Team Providers Care Director Emergency Name Role Phone Olamide Chandler MD Primary Care Provide r Reason for Visit * Reason Onset Date Comments Prior Authorization 11/28/2024 Encounter Details Date Type Department Care Team (Late st Contact Info) Description 11/28/2024 Telephone [facility] MEDICINE 230 [place], [place] [phone] Olamide Chandler MD 230 [place], [place] [phone] Prior Authorization (/) Social History Tobacco Use [...] as of this encounter Care Teams Director Emergency Relationship Specialty Start Date End Date Olamide Chandler MD [address] [place] [address] PCP - General Family Medicine 07/28/20 documented as of this encounter
--- OUTSIDE RECORDS SUMMARY | 2025-02-19 13:24 | XMS_ITS | Encounter Summary ---
Author Organization [employer] Address 75 [facility] 7t [place] [address] Care Team Providers Care Spinning Lathe Operator Automatic Name Role Phone Olamide Chandler MD Primary Care Provide r Encounter Details Date Type Department Care Team ([facility] st Contact Info) Description 12/04/2024 Orders Only [facility] MEDICINE 230 [place], [place] [phone] Olamide Chandler MD 230 [place], [place] [phone] Social History Tobacco Use Types Packs/Day Years [...] documented as of this encounter Care Teams Spinning Lathe Operator Automatic Relationship Specialty Start Date End Date Olamide Chandler MD [address] [place] [address] PCP - General Family Medicine 07/28/20 documented as of this encounter
--- OUTSIDE RECORDS SUMMARY | 2025-02-19 13:24 | XMS_ITS | Encounter Summary ---
Author Organization [employer] Address 75 [facility] 7t [place] [address] Care Team Providers Care Binder Folder Operator Name Role Phone Olamide Chandler MD Primary Care Provide r Reason for Visit * Reason Comments Med Refill Encounter Details Date Type Department Care Team ([facility] st Contact Info) Description 02/14/2025 Refill [facility] MED[facility]INE 230 [place], [place] [phone] Olamide Chandler MD 230 [place], [place] [phone] Seasonal allergies Social History Tobacco Use Types [...] documented as of this encounter Care Teams Binder Folder Operator Relationship Specialty Start Date End Date Olamide Chandler MD 230 [place] [address] PCP - General Family Medicine 07/28/20 documented as of this encounter
--- OUTSIDE RECORDS SUMMARY | 2025-02-19 13:24 | XMS_ITS | Encounter Summary ---
Author Organization [facility] Address [address] [place] [address] Phone Care Team Providers Care Freight Adjuster Name Role Phone Olamide Chandler MD Primary Care Provide r Encounter Details Date Type Department Care Team (Late st Contact Info) Description 12/31/2024 Documentation Only [facility] [address] [place] [address] Mahendra Medel DO [address] [place] [address] Social History Tobacco Use [...] Visit [facility] [address] [place] [address] Mahendra Medel DO [address] [place] [place] [address] documented as of this encounter [...] Creatinine, Ur 40.8 Not Estab. mg/dL [facility] Albumin, Urine <3.0 Not Estab. ug/mL [facility] Albumin/Creatin ine Ratio <7 0 - 29 mg/g creat [facility] Comment: Normal: 0 - 29 Moderately increased: 30 - 300 Severely increased: >300 Urine Urine specimen obtained by clean catch procedure / Unknown 01/01/2025 9:37 AM EDT 01/01/2025 us Mahendra Medel DO LAB URINE ORDERABLES Final Resu lt [facility] [address] [place] [address] * (ABNORMAL) Renal function panel (01/01/2025 9:37 AM EDT) Glucose 105(H) 70 - 99 mg/dL [facility] BUN 10 6 - 24 mg/dL [facility] Creatinine 0.82 0.57 - 1.00 mg/dL [facility] eGFR CKD-EPI CR 2020 85 >59 mL/min/1.7 3 [facility] BUN/Creatinine Ratio 12 9 - 23 [facility] Sodium 138 134 - 144 mmol/L [facility] Potassium 4.4 3.5 - 5.2 mmol/L [facility] Chloride 101 96 - 106 mmol/L [facility] Bicarbonate (CO2) 22 20 - 29 mmol/L [facility] Calcium 9.1 8.7 - 10.2 mg/dL [facility] Albumin 4.1 3.8 - 4.9 g/dL [facility] Phosphorus 3.1 3.0 - 4.3 mg/dL [facility] Blood Venous blood / Unknown 01/01/2025 9:37 AM EDT 01/01/2025 us Mahendra Medel DO LAB BLOOD ORDERABLES Final Resu lt [facility] [address] [place] [address] documented in this encounter Visit Diagnoses Diagnosis Chronic kidney disease, stage 2 (mild)- Primary 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
--- OUTSIDE RECORDS SUMMARY | 2025-02-19 13:24 | XMS_ITS | Encounter Summary ---
Author Organization [facility] Address [address] [place] [address] Phone Care Team Providers Care Poultry Scientist Name Role Phone Olamide Chandler MD Primary Care Provide r Encounter Details Date Type Department Care Team (Late st Contact Info) Description 01/07/2025 Documentation Only [facility] [address] [place] [address] Alisha Briceno [address] [place] [phone] Social History Tobacco Use Types Packs/Day Years [...] Visit [facility] [address] [place] [phone] Mahendra Medel DO [address] [place] [address] [place] [phone] documented as of this encounter Visit Diagnoses Not on filedocumented in this encounter Care Teams Poultry Scientist Relationship Specialty Start Date End Date Olamide Chandler MD [address] [place] [phone] PCP - General Internal Medicine 10/27/23 documented as of this encounter
[2025-02-19 16:13] LABS: MANUAL DIFF FLAG NO
[2025-02-19 16:22] LABS: Hematocrit 41.0 % (37.0-47.0); Hemoglobin 13.2 g/dl (12.0-16.0); Imm Gran Abs Auto 0.05 X10*3/uL (0.00-0.03); Imm Gran Pct Auto 0.5 % (0.0-0.4); Lymphocytes Absolute Auto 1.4 X10*3/uL (1.2-4.9); Mean Corpuscular HGB Conc 32.2 g/dl (31.0-35.0); Mean Corpuscular Hemoglobin 28.6 pg (27.0-33.0); Mean Corpuscular Volume 88.7 fL (80.0-98.0); NRBC Abs Auto 0.000 X10*3/uL (0.0-0.012); NRBC Pct Auto 0.0 /100WBC (0.0-0.2); Platelet Count 326 X10*3/uL (160-400); Red Blood Count 4.62 X10*6/uL (4.20-5.50); White Blood Count 10.4 X10*3/uL (4.8-10.8)
[2025-02-19 16:30] LABS: Hemoglobin A1C 124.0724 umol/L; Total Hemoglobin (HGBA1C) 3479.0923 umol/L
[2025-02-19 16:48] LABS: Alanine Aminotransferase 15 U/L (0-31); Albumin Level 4.4 g/dL (3.5-5.0); Alkaline Phosphatase 78 U/L (39-117); Anion Gap 14 (12-20); Aspartate Amino Transferase 23 U/L (5-31); Blood Urea Nitrogen 13 mg/dL (9-16); Calcium 9.6 mg/dL (8.4-10.2); Carbon Dioxide 27 mmol/L (22-29); Chloride 103 mmol/L (96-108); Estimated Glomerular Filt Rate > 60; Potassium 3.7 mmol/L (3.3-5.1); Sodium 140 mmol/L (135-145); Total Protein 8.0 g/dL (6.5-8.0)
[2025-02-19 17:05] LABS: Folate 6.9 ng/mL (> or = 4.0); Vitamin B12 531 pg/mL (200-900)
[2025-02-20 17:59] LABS: Lyme Abs Screen <0.90 index
== END 2025-02-19 12:03 | disposition home or self-care (01) ==
LOC: HO.HHCL 12:02
PROVIDERS: PCP Internal Medicine; Visit Provider Internal Medicine
DX: Z01.84 Encounter for antibody response examination (principal); Z11.3 Encounter for screening for infections with a predominantly sexual mode of transmission; R20.8 Other disturbances of skin sensation; Z13.1 Encounter for screening for diabetes mellitus; Z13.6 Encounter for screening for cardiovascular disorders
CPT/HCPCS: 36415; 80053; 82607; 82746; 83036; 83090; 83921; 84443; 85025; 86592; 86617; 86618

== ENCOUNTER 2025-04-02 07:56 | Outpatient (REF) | payer OTHER, SELFPAY | END 2025-04-02 07:57 | disposition home or self-care (01) | LOC: HO.LAB 07:56 | PROVIDERS: PCP Internal Medicine; Visit Provider Nurse Practitioner Family | DX: R39.16 Straining to void (principal); Q60.0 Renal agenesis, unilateral; Z13.89 Encounter for screening for other disorder | CPT/HCPCS: 51798; 81003; 87086; 99212 ==

== ENCOUNTER 2025-04-02 07:56 | Outpatient (AMB) | payer OTHER, SELFPAY ==
--- OUTSIDE RECORDS SUMMARY | 2025-04-02 07:59 | XMS_ITS | Clinical Summary ---
Author Organization [facility] [place], Address [address] [place] [address] [place] [address] Phone Care Team Providers Care Relationship Executive Name Role Phone Olamide Chandler MD Primary [...] Communication [facility] [address] [place] [address] Kurtis Jauregui [place] 01/08/2025 Office Communication [facility] [address] [place] [address] Mahendra Medel DO 01/07/2025 Documentation Only [facility] [address] [place] [address] Alisha Briceno 01/03/2025 3:00 PM EDT Office Visit [facility] [address] [place] [address] Mahendra Medel DO Chronic kidney disease, stage 2 (mild) (Primary Dx); 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 [phone] Health Maintenance Due Date Last Done Comments [...] 25-OH, Total 64.9 30.0 - 100.0 ng/mL [facility] Comment: Vitamin D deficiency has been defined by the [place] of Medicine and an Endocrine Society practice guideline as a level of serum 25-OH vitamin D less than 20 ng/mL (1,2). The Endocrine Society went on to further define vitamin D insufficiency as a level between 21 and 29 ng/mL (2). 1. IOM ([place] of Medicine). 2010. Dietary reference intakes for calcium and D. [place]: The National Academies Press. 2. Maddie MF, Derrek DAS, Josie FAULKNER, et al. Evaluation, treatment, and prevention of vitamin D deficiency: an Endocrine Society clinical practice guideline. JCEM. 2010; 96(7):1911-30. Blood Venous blood / Unknown 01/04/2025 10:15 AM EDT 01/04/2025 Mahendra Medel DO LAB BLOOD ORDERABLES Final Resu lt [employer] [address] [place] [address] * Magnesium (01/04/2025 10:15 AM EDT) Magnesium 2.0 1.6 - 2.3 mg/dL [facility] Blood Venous blood / Unknown 01/04/2025 10:15 AM EDT 01/04/2025 Mahendra Medel DO LAB BLOOD ORDERABLES Final Resu lt [facility] [address] [place] [address] * Vitamin B12 (01/04/2025 10:15 AM EDT) Pathologist [facility] Vitamin B-12 745 232 - 1,245 pg/mL [facility] Blood Venous blood / Unknown 01/04/2025 10:15 AM EDT 01/04/2025 Mahendra Medel DO LAB BLOOD ORDERABLES Final Resu lt Performing Organization Address [facility] Co de Phone Number [facility] [address] [place] [address] * Urine Albumin / Creatinine Ratio (01/01/2025 9:37 AM EDT) [facility] Creatinine, Ur 40.8 Not Estab. mg/dL [facility] Albumin, Urine <3.0 Not Estab. ug/mL [facility] Albumin/Creatin ine Ratio <7 0 - 29 mg/g creat [facility] Comment: Normal: 0 - 29 Moderately increased: 30 - 300 Severely increased: >300 Urine Urine specimen obtained by clean catch procedure / Unknown 01/01/2025 9:37 AM EDT 01/01/2025 Mahendra Medel DO LAB URINE ORDERABLES Final Resu lt Performing Organization Address City/[facility]/ZIP Co de Phone Number [facility] [address] [place] [address] * (ABNORMAL) Renal function panel (01/01/2025 9:37 AM EDT) Pathologist [facility] Glucose 105(H) 70 - 99 mg/dL [facility] BUN 10 6 - 24 mg/dL [facility] Creatinine 0.82 0.57 - 1.00 mg/dL [facility] eGFR CKD-EPI CR 2020 85 >59 mL/min/1.7 3 [facility] BUN/Creatinine Ratio 12 9 - 23 [facility] Sodium 138 134 - 144 mmol/L [facility] Potassium 4.4 3.5 - 5.2 mmol/L [facility] Chloride 101 96 - 106 mmol/L [facility] Bicarbonate (CO2) 22 20 - 29 mmol/L [facility] Calcium 9.1 8.7 - 10.2 mg/dL [facility] Albumin 4.1 3.8 - 4.9 g/dL [facility] Phosphorus 3.1 3.0 - 4.3 mg/dL [facility] Blood Venous blood / Unknown 01/01/2025 9:37 AM EDT 01/01/2025 us Mahendra Medel DO LAB BLOOD ORDERABLES Final Resu lt [facility] [address] [place] [address] from Last 3 Months Insurance [facility] One [employer] Dual SNP ([id number]) NADIR WALKER [phone] Care Teams Relationship Executive Relationship Specialty Start Date End Date Olamide Chandler MD [address] [place] [address] [place]BSTER [phone] PCP - General Internal Medicine 10/27/23
--- OUTSIDE RECORDS SUMMARY | 2025-04-02 07:59 | XMS_ITS | Clinical Summary ---
Author Organization [employer] Address [address] [facility] [address] [place] [address] Care Team Providers Care Tune Up Mechanic Name Role Phone Olamide Chandler MD [...] 1 TABLET BY MOUTH EVERY MORNING DIRECTED 3 Active citalopram (CeleXA) 20 MG tablet Take 20 mg by mouth in the morning. 3 Active citalopram (CeleXA) 10 MG tablet TAKE 1 TABLET BY MOUTH EVERY DAY IN ADDITION TO 20 MG TABLET 3 Active sodium chloride (King Nasal [place]) 0.65 % nasal sprayIndications:C OVID-19 1-2 sprays on each nostril every 2-3 hours as needed for nasal congestion 30 mL 1 3 Active loratadine (Claritin) 10 MG tablet Take 1 tablet (10 mg) by mouth in the morning. 30 tablet 2 3 Active albuterol 108 (90 Base) MCG/ACT inhalerIndications :Uncomplicated asthma, unspecified asthma severity, unspecified whether persistent Inhale 2 puffs every 4 (four) hours if needed for wheezing or shortness of breath. 18 g 3 3 Active clobetasol (Temovate) 0.05 % cream Apply topically 2 times daily. 45 g 1 4 Active diphenhydrAMINE (BENADryl) 25 MG capsule Take 1 capsule (25 mg) by mouth every 6 (six) hours if needed for itching. May take 1-2 capsules prn rash or itching 40 capsule 1 4 Active ammonium lactate (Lac-Hydrin) 12 % lotionIndications: Dry skin dermatitis Apply topically if needed for dry skin. 225 g 1 4 025 Active pseudoephedrine (Sudafed) 30 MG tablet Take 1 tablet (30 mg) by mouth every 4 (four) hours if needed for congestion for up to 10 days. 30 tablet 4 Active senna-docusate (Senokot S) 8.6-50 MG tabletIndications: Constipation, unspecified constipation type Take 1 tablet by mouth Once per day. 30 tablet 11 5 026 Active Tirzepatide-Weight Management (Zepbound) 5 MG/0.5ML solution auto-injectorIndic ations:Class 3 severe obesity due to excess calories with serious comorbidity and body mass index (BMI) of 45.0 to 49.9 in adult (HCC) Inject 0.5 mL (5 mg) under the skin 1 (one) time per week. 2 mL 5 Active cholecalciferol VITAMIN D (Vitamin D-3) 50 MCG (1999 UT) capsuleIndications :Vitamin D deficiency TAKE 1 CAPSULE BY MOUTH DAILY 90 capsule 1 5 Active levothyroxine (Synthroid, Levoxyl) 75 MCG tabletIndications: Other specified hypothyroidism TAKE 1 TABLET BY MOUTH IN THE MORNING 90 tablet 1 5 Active omeprazole (PriLOSEC) [address] capsuleIndications :Gastroesophageal reflux disease, unspecified whether esophagitis present TAKE 1 CAPSULE BY MOUTH EVERY DAY BEFORE BREAKFAST 90 capsule 5 Active Tirzepatide-Weight Management (Zepbound) 2.5 MG/0.5ML solution auto-injectorIndic ations:Class 3 severe obesity due to excess calories with serious comorbidity and body mass index (BMI) of 45.0 to 49.9 in adult ([facility]) Inject 0.5 mL (2.5 mg) under the skin 1 (one) time per week. 2 mL 2 5 Active fluticasone (Flonase) 50 MCG/ACT nasal sprayIndications:S easonal allergies SHAKE LIQUID AND USE 2 SPRAYS IN EACH NOSTRIL EVERY MORNING NEEDED FOR ALLERGIES 48 g 5 Active carvedilol (Coreg) 6.25 MG tabletIndications: Essential hypertension Take 1 tablet (6.25 mg) by mouth with breakfast and with evening meal. 60 tablet 11 5 026 Active Active Problems Problem Noted Date Diagnosed Date Fibromyalgia 02/19/2025 Assessment & Plan (02/19/2025 2:35 PM EDT): Patient was educated about multidisciplinary approach for her condition, it was advise cardiovascular exercise, maintain hydration, treat anxiety/depression and take medications as directed Dyspnea 02/19/2025 Assessment & Plan (02/19/2025 2:36 PM EDT): Pulmonary function test ordered today patient will be contacted with results Burning sensation 02/19/2025 Assessment & Plan (02/19/2025 2:36 PM EDT): Labs ordered today patient will be contacted with results Dizziness 02/19/2025 Assessment & Plan (02/19/2025 2:39 PM EDT): I reviewed with her results of MRI which were normal, I also reviewed her results of carotid ultrasound which was also normal Labs ordered today patient will be contacted with results I advised to follow-up with neurology and do not miss her appointment Stage 3 chronic kidney disea se, unspecified whether stage 3a or 3b CKD ([facility]) 01/18/2025 Anxiety with depression 01/18/2025 Assessment & [...] PM EDT): Patient is being follow by chemistry account manager I will c/w zepbound 2.5mg weekly, I [...] It seems to be Poison [place] or [place] rash. We discuss about avoiding scratching, use [...] patient instructed to report back Meningioma, cerebral (CMS/HCC) 09/08/2022 Assessment & Plan (01/18/2025 1:48 PM [...] 09/01/2022 Essential hypertension 08/02/2022 Assessment & Plan (02/19/2025 2:35 PM EDT): Today blood pressure and heart rate is elevated, I decided to reinitiate her carvedilol to 6.25 mg twice a day and monitor blood pressure at home and report back to me if BP continues to be high Assessment & Plan (01/18/2025 1:45 PM EDT): [...] 04/16/2015 Mild intermittent asthma 04/16/2015 Morbid obesity (CMS/HCC) 04/16/2015 Osteoma of skull 04/16/2015 Congenital solitary kidney 04/16/2015 History of cerebral meningioma 09/08/2014 Assessment & Plan (09/08/2022 9:43 AM EDT): Patient informs h/o meningioma has not being monitor for the past [address] f/u Encounters Date Type Department Care Team Description 03/07/[address] [address] Olamide Chandler MD 02/28/[address] [address] Olamide Chandler MD Referral 02/20/[address] [address] Olamide Chandler MD 02/20/[address] [address] Olamide Chandler MD Stable Lab Orders 02/20/2025 Results Follow-Up [address] [address] Brittney Graham MD Vascular US carotid artery duplex bilateral 02/20/[address] [address] Olamide Chandler MD Results 02/19/2025 11:15 AM EDT Office Visit [address] [address] Olamide Chandler MD Fibromyalgia (Primary Dx); Essential hypertension; Dyspnea, unspecified type; Burning sensation; Dizziness 02/19/2025 Travel 02/14/[address] [address] Olamide Chandler MD Seasonal allergies 02/12/2025 Travel 02/08/[address] [address] Olamide Chandler MD 01/18/2025 11:30 AM EDT Office Visit [address] [address] Olamide Chandler MD Prediabetes (Primary Dx); Essential hypertension; Stage 3 chronic kidney disease, unspecified whether stage 3a or 3b CKD (CMS/HCC); Meningioma, cerebral (CMS/HCC); Anxiety with depression; Class 3 severe obesity due to excess calories with serious comorbidity and body mass index (BMI) of 45.0 to 49.9 in adult; Dietary counseling; Exercise counseling 01/18/2025 Travel 01/17/[address] [address] Olamide Chandler MD Chart Prep 01/15/[address] [address] Olamide Chandler MD Gastroesophageal reflux disease, unspecified whether esophagitis present 01/11/2025 Orders Only GENERIC EXTERNAL DATA DEPARTMENT Provider, Generic External Data 01/11/2025 Travel 01/08/2025 Patient Outreach [address] [address] Olamide Chandler MD Pre-visit Planning (SDOH screening negative and tobacco screening negative) 01/07/[address] [address] Olamide Chandler MD Med Refill 01/02/2025 11:00 AM EDT Office Visit [address] [address] Brittney Graham MD Lightheadedness (Primary Dx); Essential hypertension; Acquired hypothyroidism 01/02/2025 Travel 01/01/2025 Travel 12/31/[address] [address] Olamide Chandler MD Nurse Triage from Last 3 Months Immunizations Immunization Administration [...] 02/19/2025 11:13 AM EDT Plan of Treatment Upcoming Encounters Date Type Department Care Team (Late st Contact Info) Description 04/11/2025 11:15 AM EDT Office Visit [facility] [address] [place] [address] Olamide Chandler MD [address] [place] [address] Health Maintenance Due Date Last Done Comments CT Colonography 1970 FIT DNA/Cologuard 1970 FIT 1970 FOBT 1970 HIV Screening 1970 Sigmoidoscopy 1970 Hepatitis C Screening 10/21/1989 Depression Monitoring 09/09/2024 03/12/2024, 024 COVID-19 Vaccine ( season) 2025 10/28/2023, 06/22/2021, 09/10/2020, Additional history exists Influenza Vaccine (#1) 2025 , 03/12/2022, 04/08/2021, Additional history exists Mammogram 11/14/2025 11/14/2024, 09/18, 09/15/2023, Additional history exists SDOH Screening 01/08/2026 01/08/2025 Disability Screening 01/11/2026 01/11/2025 Alcohol/Substance Use Screening 01/18/2026 01/18/2025 Diabetes: Hemoglobin A1C 02/19/2026 025, 01/18/2025, 03/29/2024, Additional history exists Tobacco Screening 02/19/2026 02/19/2025 [...] Procedure Name Priority Date/Time Associated Diagnosis Comments HOMOCYSTEINE Routine 02/19/2025 1:25 PM EDT Burning sensation METHYLMALONIC ACID Routine 02/19/2025 12 :31 PM EDT Burning sensation LYME DISEASE AB W/REFL TO BLOT (IGG, IGM) Routine 02/19/2025 12:31 PM EDT Burning sensation VITAMIN B12/FOLATE, SERUM PANEL Routine 02/19/2025 12:31 PM EDT Burning sensation RPR (MONITOR) W/REFL TITER Routine 02/19/2025 12:31 PM EDT Burning sensation TSH W/REFLEX TO FT4 Routine 02/19/2025 1 2:31 PM EDT Burning sensation HEMOGLOBIN A1C Routine 02/19/2025 12:31 PM EDT Burning sensation COMPREHENSIVE METABOLIC PANEL Routine 02/19/2025 12:31 PM EDT Burning sensation CBC WITH AUTO DIFFERENTIAL Routine 02/19/2025 12:31 PM EDT Burning sensation [facility] US CAROTID ARTERY DUPLEX BILATERAL Routine 02/14/2025 [...] Recently Relevant to Health Maintenance Results * Homocysteine (02/19/2025 1:25 PM EDT) Homocysteine 9.8 < or = 13.4 umol/L [facility] Comment:Homocysteine is incr eased by functional deficiency offolate or vitamin B12. Testing for methylmalonic aciddifferentiates between these deficiencies. Other causesof increased homocysteine include renal failure, folateantagonists such as methotrexate and phenytoin, andexposure to nitrous oxide.Edis Muse, et al., [employer] Project Manager Med. 1999;131(5):331-9.THIS TEST WAS PERFORMED AT:[facility] [place] [phone] MONDRAGON MD Blood Venous blood specimen / Unknown 02/19/2025 1:25 PM EDT 02/19/2025 1:25 PM EDT us Olamide Stevens MD LAB BLOOD ORDERABLES Final Result Performing Organization Address [facility]/ZIP Co de Phone Number [facility] [address] [place] [phone] * Vitamin B12 (Cobalamin) and Folate Panel, Serum (02/19/2025 12:31 PM EDT) Vitamin B12 531 200 - 900 pg/mL [facility] Comment:NORMAL 200-900 PG/ML INDETERMINATE 160-199 PG/ML DEFICIENT < 160 PG/ML Folate 6.9 > or = 4.0 ng/mL [facility] Comment:Reference Values:> o r = 4.0 ng/mL< 4.0 ng/mL suggests folate deficiency Methotrexate, aminopterin and folinic acid(leucovorin) are chemotherapeutic agents whose molecularstructures are similar to folate; therefore, the Architectfolate assay cannot be used for patients using these drugs. Blood Venous blood specimen / Unknown 02/19/2025 12:31 PM EDT 02/19/2025 4:00 PM EDT us Olamide Stevens MD LAB BLOOD ORDERABLES Final Result Performing Organization Address [facility] Co de Phone Number [facility] [address] [place] [phone] * TSH with Reflex to Free T4 (02/19/2025 12:31 PM EDT) Only the most recent of2 resultswithin the time period is included. TSH reflex Free T4 0.52 0.32 - 4.0 uIU/mL [facility] Blood Venous blood specimen / Unknown 02/19/2025 12:31 PM EDT 02/19/2025 4:00 PM EDT Olamide Stevens MD LAB BLOOD ORDERABLES Final Result Performing Organization Address [facility] Co de Phone Number [facility] [address] [place] [phone] * Lyme Disease Ab with Reflex to Blot (IgG, IgM) (02/19/2025 12:31 PM EDT) [facility] Lyme Antibody Screen <0.90 index [facility] Comment:Index Interpretation ----- < 0.90 Negative 0.90-1.09 Equivocal > 1.09 PositiveAs recommended by the Food and Drug Administration(FDA), all samples with positive or equivocalresults in a Borrelia burgdorferi antibody screenwill be tested using a blot method. Positive orequivocal screening test results should not beinterpreted as truly positive until verified as suchusing a supplemental assay (e.g., B. burgdorferi blot).The screening test and/or blot for B. burgdorferiantibodies may be falsely negative in early stagesof Lyme disease, including the period when erythemamigrans is apparent.THIS TEST WAS PERFORMED AT:[facility] [address] [phone] MONDRAGON MD Lyme Blot [facility] 02/19/2025 12:3 1 PM EDT 02/19/2025 4:00 PM EDT us Olamide Stevens MD LAB BLOOD ORDERABLES Final Result Performing Organization Address [facility] Co de Phone Number [facility] [address] [place] [phone] * (ABNORMAL) CBC auto differential (02/19/2025 12:31 PM EDT) Only the most recent of2 resultswithin the time period is included. [facility] White Blood Count 10.4 4.8 - 10.8 X10*3/uL [facility] Red Blood Count 4.62 4.20 - 5.50 X10*6/uL [facility] Hemoglobin 13.2 12.0 - 16.0 g/dl [facility] Hematocrit 41.0 37.0 - 47.0 % [facility] Mean Corpuscular Volume 88.7 80.0 - 98.0 fL [facility] Mean Corpuscular Hemoglobin 28.6 27.0 - 33.0 pg [facility] Mean Corpuscular HGB Conc 32.2 31.0 - 35.0 g/dl [facility] Red Cell Distribution Width 12.4 11.0 - 16.0 % [facility] Platelet Count 326 160 - 400 X10*3/uL [facility] Mean Platelet Volume 10.3 9.4 - 12.3 fL [facility] Neutrophils Percent Auto 80.1(H) 45 - 73 % [facility] Imm Gran Pct Auto 0.5(H) 0.0 - 0.4 % [facility] Lymphocytes Percent Auto 13.5(L) 20 - 40 % [facility] Monocytes Percent Auto 5.1 2 - 11 % [facility] Eosinophils Percent Auto 0.2 0 - 4 % [facility] Basophils Percent Auto 0.6 0 - 2 % [facility] NRBC Pct Auto 0.0 0.0 - 0.2 /100WBC [facility] Neutrophils Absolute Auto 8.3 2.0 - 8.3 x10*3/uL [facility] Imm Gran Abs Auto 0.05(H) 0.00 - 0.03 X10*3/uL [facility] Lymphocytes Absolute Auto 1.4 1.2 - 4.9 X10*3/uL [facility] Monocytes Absolute Auto 0.5 0.1 - 1.2 X10*3/uL [facility] Eosinophils Absolute Auto 0.0 0.0 - 0.4 X10*3/uL [facility] Basophils Absolute Auto 0.1 0.0 - 0.2 X10*3/uL [facility] NRBC Abs Auto 0.000 0.0 - 0.012 X10*3/uL [facility] Blood Venous blood specimen / Unknown 02/19/2025 12:31 PM EDT 02/19/2025 4:10 PM EDT us Olamide Stevens MD LAB BLOOD ORDERABLES Final Result [facility] [address] [place] [phone] * Methylmalonic Acid (02/19/2025 12:31 PM EDT) Methylmalonic Acid 61 55 - 335 nmol/L [facility] Comment: Serum methylmalonic acid (MMA) levels are used todiagnose and monitor several rare inborn errors ofmetabolism, including methylmalonic aciduria. Theenzymatic conversion of MMA to succinic acid requiresvitamin B12 (adenosyl-cobalamin) as a cofactor. SerumMMA levels are also used for assessing functionalvitamin B12 deficiency. Vitamin B12 is essential forfetal neurodevelopment, particularly early inpregnancy. Undiagnosed maternal vitamin B12 deficiencymay be associated with adverse / outcomes,such as neural tube defects and intrauterine growthrestriction.ZeroPercent.us utilized Multi-Modal Decomposition(MMD) analysis to establish first and second trimester-specific MMA reference intervals in , as givenbelow:MMA, First trimester (<13 wks gestation): 58-167 nmol/LMMA, Second trimester (13-23 wks gestation):63-241 nmol/LThis test was developed and its analytical performancecharacteristics have been determined by [email or web address]. It has not been cleared or approved by theFDA. This assay has been validated pursuant to the CLIAregulations and is used for clinical purposes.THIS TEST WAS PERFORMED AT:[facility] [place] [address]IYFDRHDMARIA G LEWIS MD,PHD Blood Venous blood specimen / Unknown 02/19/2025 12:31 PM EDT 02/19/2025 4:00 PM EDT us Olamide Stevens MD LAB BLOOD ORDERABLES Final Result Performing Organization Address [facility]/ZIP Co de Phone Number [facility] [address] [place] [phone] * RPR (Monitor) with Reflex to??Titer (02/19/2025 12:31 PM EDT) RPR (Monitor) w/Refl Titer NON-REACTI VE NON-REACT SHAHEEN [facility] Comment:THIS TEST WAS PERFOR MED AT:[facility] [place] [phone] MONDRAGON MD Rapid Plasma Reagin Ab Titer TNP [facility] Blood Venous blood specimen / Unknown 02/19/2025 12:31 PM EDT 02/19/2025 4:00 PM EDT Olamide Stevens MD LAB BLOOD ORDERABLES Final Result Performing Organization Address [facility] Co de Phone Number [facility] [address] [place] [phone] * Hemoglobin A1c (02/19/2025 12:31 PM EDT) Hemoglobin A1c 5.4 <6.0 % [facility] Comment:Hemoglobin A1C Refer ence Range Adults: 4.8 - 6.0 % Non diabetic: < 6.0 % Goal: < 7.0 %Additional Action Suggested: > 8.0 %Note: Hemoglobin A1c results are invalid for patients with abnormal amounts of HbF. Blood transfusions may impact the HbA1c concentration in the patient sample. Estimated Average Glucose 108 mg/dL [facility] Comment:eAG = Estimated ave rage glucose which is %A1C expressed asaverage glucose, using the formula of the Z3X-CavcxcmPvfzpfj Glucose study (ADAG), Diabetes Care, Vol.31,#8,Jan. 2007 Blood Venous blood specimen / Unknown 02/19/2025 12:31 PM EDT 02/19/2025 4:10 PM EDT us Olamide Stevens MD LAB BLOOD ORDERABLES Final Result [facility] [address] [place] [phone] * Comprehensive Metabolic Panel (02/19/2025 12:31 PM EDT) Only the most recent of2 resultswithin the time period is included. Sodium 140 135 - 145 mmol/L [facility] Potassium 3.7 3.3 - 5.1 mmol/L [facility] Chloride 103 96 - 108 mmol/L [facility] Carbon Dioxide 27 22 - 29 mmol/L [facility] Anion Gap 14 12 - 20 [facility] Urea Nitrogen (BUN) 13 9 - 16 mg/dL [facility] Creatinine, Serum 0.82 0.5 - 1.4 mg/dL [facility] Estimated Glomerular Filt Rate >60 [facility] Comment:Chronic Kidney Disea se: Estimated GFR < 60 mL/min/1.44s7Mctype Kidney Disease: Estimated GFR < 15 mL/min/1.73m2 Glucose 104 60 - 115 mg/dL [facility] Calcium 9.6 8.4 - 10.2 mg/dL [facility] Bilirubin, Total 0.4 0.0 - 1.0 mg/dL [facility] Aspartate Amino Transferase 23 5 - 31 U/L [facility] Alanine Aminotransferase 15 0 - 31 U/L [facility] Total Protein 8.0 6.5 - 8.0 g/dL [facility] Albumin Level 4.4 3.5 - 5.0 g/dL [facility] Alkaline Phosphatase 78 39 - 117 U/L [facility] Blood Venous blood specimen / Unknown 02/19/2025 12:31 PM EDT 02/19/2025 4:00 PM EDT us Olamide Stevens MD LAB BLOOD ORDERABLES Final Result [facility] [address] [place] [phone] * Vascular US carotid artery duplex bilateral (02/14/2025 8:28 AM EDT) 02/14/2025 8:28 AM EDT Narrative [facility] - 02/14/2025 8:29 AM EDT [place] [address] Ultrasound Report Signed Patient: Laisha Ye I MR#: [id number] : 1970 Acct:[id number] Age/Sex: 54 / F ADM Date: 02/13/25 Loc: HO.US Attending Dr: Brittney Graham MD Ordering Physician: Brittney Graham MD Date of Service: 02/13/25 Procedure(s): US carotid duplex BI Accession Number(s): [id number] cc: Olamide Chandler MD; Brittney Graham MD [...] in OV> 02/14/25828 DD/ 7 TD/TT: 02/14/25827 Predictive Maintenance Specialist: Procedure Note Donotuseinterpreter, Image - 02/14/[address] [address] Ultrasound Report Signed Patient: Laisha Ye [facility]#: [id number] : 1970Acct:[id number] Age/Sex: 54 / FADM Date: 02/13/25 Loc: HO.US Attending Dr: Brittney Graham MD Ordering Physician: Brittney Graham MD Date of Service: 02/13/25 Procedure(s): US carotid duplex BI Accession Number(s): [id number] cc: Olamide Chandler MD; Brittney Graham MD [...] in OV> 02/14/25828 DD/ 7 TD/TT: 02/14/25827 Predictive Maintenance Specialist: us Brittney Graham MD CV VASCULAR PROCEDURES F inal Result [facility] [address] [place] [phone] * MR Brain w/o Contrast (01/24/2025) Anatomical [...] POCT Glucose (01/18/2025 12:37 PM EDT) Pathologist [facility] Glucose Blood, POC 136 60 - 200 mg/dL Blood Capillary blood specimen / Unknown 01/18/2025 12:37 PM EDT Olamide Stevens MD POINT OF CARE TEST EN TER/EDIT ORDERABLES Final Result * High Sensitivity Troponin I (01/11/2025 11:20 AM EDT) Pathologist [facility] TROPONIN I HIGH SENSITIVITY <2.7 <3.5 - 17.0 ng/L [facility] Comment:The Tristan high sens itivity Troponin-I results should beused in conjunction with other diagnostic information suchas ECG, clinical observations and information, and patientsymptoms to aid in the diagnosis of NV. 01/11/2025 11:2 0 AM EDT 01/11/2025 11:23 AM EDT Generic External Data Provider LAB BLOOD ORDERAB LES Final Result [facility] [address] [place] [phone] * SARS-CoV-2 RNA, Influenza A/B, and RSV RNA, Ql NAAT (01/11/2025 11:20 AM EDT) Pathologist [facility] Influenza A PCR NEGATIVE Negative [facility] Influenza B PCR NEGATIVE Negative [facility] Resp Syncy Virus RNA Qual PCR NEGATIVE Negative [facility] SARS COV2 PCR NEGATIVE Negative [place] [...] use by authorized laboratories.Testing performed on the [employer] GeneXpert utilizingreal-time RT-PCR.All SARS CoV2 and positive influenza A/B results arereported to [facility]. 01/11/2025 11:2 0 AM EDT 01/11/2025 11:23 AM EDT Generic External Data Provider LAB MICROBIOLOGY - GENERAL ORDERABLES Final Result Performing Organization Address [facility]/ZIP Co de Phone Number [facility] [address] [place] [phone] * Magnesium (01/11/2025 11:20 AM EDT) [facility] Magnesium 2.2 1.6 - 2.6 mg/dL [facility] 01/11/2025 11:2 0 AM EDT 01/11/2025 11:23 AM EDT Generic External Data Provider LAB BLOOD ORDERAB LES Final Result Performing Organization Address [facility] Co de Phone Number [facility] [address] [place] [phone] * (ABNORMAL) Basic Metabolic Panel (01/02/2025 11:37 AM EDT) Sodium 138 135 - 145 mmol/L [facility] Potassium 3.9 3.3 - 5.1 mmol/L [facility] Chloride 104 96 - 108 mmol/L [facility] Carbon Dioxide 27 22 - 29 mmol/L [facility] Anion Gap 11(L) 12 - 20 [facility] Urea Nitrogen (BUN) 9 9 - 16 mg/dL [facility] Creatinine, Serum 0.83 0.5 - 1.4 mg/dL [facility] Estimated Glomerular Filt Rate >60 [facility] Comment:Chronic Kidney Disea se: Estimated GFR < 60 mL/min/1.78e8Qdggjd Kidney Disease: Estimated GFR < 15 mL/min/1.73m2 Glucose 116(H) 60 - 115 mg/dL [facility] Calcium 9.3 8.4 - 10.2 mg/dL [facility] Blood Venous blood specimen / Unknown 01/02/2025 11:37 AM EDT 01/02/2025 1:47 PM EDT us Brittney Graham MD LAB BLOOD ORDERABLES Fin al Result [facility] [address] [place] [phone] * BI US Breast Limited Left (11/14/2024 11:00 AM EDT) Anatomical Region Laterality Modality Breast Left Ultrasound 11/14/2024 11:0 0 AM EDT Narrative 11/14/2024 3:08 PM EDT [address] [place] [address] Ultrasound Report Signed Patient: Laisha Ye I MR#: M [id number] : 1970 Acct:[id number] Age/Sex: 54 / F ADM Date: 11/14/24 Loc: HO.MAMMO Attending Dr: Olamide Stevens MD Ordering Physician: Olamide Chandler MD Date of Service: 11/14/24 Procedure(s): US breast LT limited mamm only Accession Number(s): [id number] cc: Olamide Chandler MD EXAMINATION: MM DIAGNOSTIC [...] 11/14/24 1505 DD/ 1100 TD/TT: 11/14/24 1100 Predictive Maintenance Specialist: Procedure Note Donotuseinterpreter, Image - 11/14/2024 [facility] [address] [place] [address] [place] [address] Ultrasound Report Signed Patient: Laisha Ye [facility]#: M [id number] : 1970Acct:[id number] Age/Sex: 54 / FADM Date: 11/14/24 Loc: HO.MAMMO Attending Dr: Olamide Stevens MD Ordering Physician: Olamide Chandler MD Date of Service: 11/14/24 Procedure(s): US breast LT limited mamm only Accession Number(s): [id number] cc: Olamide Chandler MD EXAMINATION: MM DIAGNOSTIC [...] 11/14/24 1505 DD/ 1100 TD/TT: 11/14/24 1100 Predictive Maintenance Specialist: us Olamide Stevens MD IMG US PROCEDURES Fin al Result * (ABNORMAL) Lipid Panel with Reflex to Direct LDL (03/29/2024 9:50 AM EDT) Triglycerides 89 <150 mg/dL [facility] Comment:Desirable Triglyceri de: less than 150 mg/dLBorderline High Triglyceride 150-199 mg/dLHigh Triglyceride: 200-499 mg/dLVery High Triglyceride: greater than or equal to 5OO mg/dL Cholesterol 168 <200 mg/dL [facility] Comment:Desirable Cholestero l: less than 200 mg/dLBorderline High Cholesterol: 200-239 mg/dLHigh Cholesterol: greater than 239 mg/dL LDL Cholesterol Calculated 107(H) <100 mg/dL [facility] Comment:Desirable LDL: less than 100 mg/dLNear Optimal/Above Optimal LDL: 110- 129 mg/dLBorderline High LDL: 130-159 mg/dLHigh LDL: 160-189 mg/dLVery High LDL: greater than or equal to 190 mg/dL HDL Cholesterol 44 >40 mg/dL [facility] Comment:Desirable HDL: great er than 40 mg/dL Note: This HDL assay may give artificially low results in patients with liver disease. Blood 03/29/2024 9:50 AM EDT 03/29/2024 11:08 AM EDT Olamide Stevens MD LAB BLOOD ORDERABLES Final Result [facility] [address] [place] [phone] * Image-Guided Pap with Age-Based Screening??with CT/NG,??Trichomonas (10/29/2022 11:29 AM EDT) Comment [address] [facility] Comment: This order for age-based cervical cancer and STI screening follows ACOG guidelines(PB 168, 140, KFX331). See individual assays for performing site location. Clinical Information: 52 Y/O F NO PREVIOUS ABNORMALITY C CAD [facility] LMP: NONE GIVEN CAD [facility] Prev. PAP: NONE GIVEN CAD [facility] Prev. BX: NONE GIVEN [address] [facility] SOURCE: None given [employer] [place] [employer] Statement Of Adequacy: [employer] [place] [employer] Comment: Satisfactory for evaluation. Endocervical/transformation zone component absent. Interpretation/Re sult: Negative for intraepithelial lesion or malignancy. [facility] [place] [facility] COMMENT: This Pap test has been evaluated with computer assisted technology. [employer] [place] [employer] Rodbuster: Amalia jimenez [employer] [place] [employer] Comment: EXJ, CT(ASCP) CT Screening Location: [place] [address] (Always Message) [facility] Comment: EXPLANATORY NOTE: The Pap is a [...] HPV nRNA E6/E7 Not Detected Not Detected [employer] [place] [employer] Comment: Methodology: Senior Qa Engineer-Mediated Amplification This assay detects E6/E7 viral messenger RNA (mRNA) from 14 high-risk HPV types (16,18,31,33,35,39,45,51,52,56,58,59,66,68). Cervical sources are required for HPV testing. If a vaginal source from a patient who has had a total hysterectomy with removal of cervix was submitted, please contact the testing laboratory for alternative testing options. For additional information, please refer to http://DevZuz.Notch/faq/GXC149m4 (This link if provided for information/ educational purposes only.) Chlamydia trachomatis RNA, TMA, Urogenital NOT DETECTED NOT DETECTED [employer] [place] [employer] Neisseria gonorrhoeae RNA, TMA, Urogenital NOT DETECTED NOT DETECTED [employer] [place] [employer] (Always Message) [facility] [place] [employer] Comment: The analytical performance characteristics of this assay, when used to test SurePath(TM) specimens have been determined by [employer]. The modifications have not been cleared or approved by the FDA. This assay has been validated pursuant to the CLIA regulations and is used for clinical purposes. For additional information, please refer to https://DevZuz.Notch/faq/PPW994 (This link is being provided for information/ educational purposes only.) Trichomonas vaginalis, QL, TMA, PAP Vial NOT DETECTED NOT DETECTED [facility] Comment: The analytical performance characteristics of this assay have been determined by [employer]. The modifications have not been cleared or approved by the FDA. This assay has been validated pursuant to the CLIA regulations and is used for clinical purposes. For additional information, please refer to http://DevZuz.Notch/ faq/Trichomonastma (This link is being provided for information/ educational purposes only.) Pap Vial 10/29/2022 11:2 9 AM EDT 10/31/2022 4:55 PM EDT Olamide Stevens MD LAB CYTOLOGY ORDERABL ES Final Result [facility] [address], [facility] [place] [address] [employer] [place] [employer] [address] [place] [phone] * Hm Colonoscopy (04/12/2022 10:07 PM EDT) Historical Provider HEALTH MAINTENANCE Final Result from Last 3 Months or Most Recently Relevant to Health Maintenance Insurance [address] [place] [address] [facility] ONE CARE < 65 [place] WALKER [phone] Care Teams Tune Up Mechanic Relationship Specialty Start Date End Date Olamide Chandler MD [address] [place] [phone] PCP - General Family Medicine 07/28/20
--- OUTSIDE RECORDS SUMMARY | 2025-04-02 07:59 | XMS_ITS | Encounter Summary ---
Author Organization [employer] Address [address] [facility] 7t [place] [address] Care Team Providers Care Crop Duster Name Role Phone Olamide Chandler MD Primary Care Provide r Encounter Details Date Type Department Care Team (Late st Contact Info) Description 10/19/2024 Orders Only [facility] [address] [place] [address] Provider, MD Maurisio Social History Tobacco Use [...] Description 04/11/2025 11:15 AM EDT Office Visit [facility] [address] [place], [place] [phone] Olamide Chandler MD [address] [place], [place] [phone] documented as of this encounter Procedures Procedure [...] AM EDT Narrative 11/14/2024 3:08 PM EDT [facility] [address] [place] [address] Ultrasound Report Signed Patient: Laisha Ye I MR#: M [id number] : 1970 Acct:[id number] Age/Sex: 54 / F ADM Date: 11/14/24 Loc: HO.MAMMO Attending Dr: Olamide Stevens MD Ordering Physician: Olamide Chandler MD Date of Service: 11/14/24 Procedure(s): US breast LT limited mamm only Accession Number(s): [id number] cc: Olamide Chandler MD EXAMINATION: MM DIAGNOSTIC [...] 11/14/24 1505 DD/ 1100 TD/TT: 11/14/24 1100 Electronic Warfare Operator: Procedure Note Donotuseinterpreter, Image - 11/14/2024 [facility] [address] [place], [place] [address] Ultrasound Report Signed Patient: Laisha Ye IMR#: M [id number] : 1970Acct:[id number] Age/Sex: 54 / FADM Date: 11/14/24 Loc: HO.MAMMO Attending Dr: Olamide Stevens MD Ordering Physician: Olamide Chandler MD Date of Service: 11/14/24 Procedure(s): US breast LT limited mamm only Accession Number(s): [id number] cc: Olamide Chandler MD EXAMINATION: MM DIAGNOSTIC [...] 11/14/24 1505 DD/ 1100 TD/TT: 11/14/24 1100 Electronic Warfare Operator: us Olamide Stevens MD IMG US PROCEDURES Fin al Result * BI Mammogram Diagnostic Tomosynthesis added left (11/14/2024 10:30 AM EDT) Anatomical Region Laterality Modality Breast Left Mammography 11/14/2024 10:3 0 AM EDT Narrative 11/14/2024 3:08 PM EDT [facility] [address] [place] [address] Mammography Report Signed Patient: Laisha Ye I MR#: M [id number] : 1970 Acct:[id number] Age/Sex: 54 / F ADM Date: 11/14/24 Loc: HO.MAMMO Attending Dr: Olamide Stevens MD Ordering Physician: Olamide Chandler MD Results: 3.6MProbably Benign Finding - Short 6 M F/U Suggested Date of Service: 11/14/24 Follow Up: 6 Month F/U Procedure(s): MM tomosynthesis added views L Accession Number(s): [id number] cc: Olamide Chandler MD EXAMINATION: MM DIAGNOSTIC [...] 11/14/24 1505 DD/ 1030 TD/TT: 11/14/24 1100 Electronic Warfare Operator: Procedure Note Donotuseinterpreter, Image - 11/14/2024 [facility] [address] [place] [address] Mammography Report Signed Patient: Laisha Ye [facility]#: [id number] : 1970Acct:[id number] Age/Sex: 54 / FADM Date: 11/14/24 Loc: HO.MAMMO Attending Dr: Olamide Stevens MD Ordering Physician: Olmaide Chandler MD Results: 3.6MProbably Benign Finding - Short 6 M F/U Suggested Date of Service: 11/14/24Follow Up: 6 Month F/U Procedure(s): MM tomosynthesis added views L Accession Number(s): [id number] cc: Olamide Chandler MD EXAMINATION: MM DIAGNOSTIC [...] 11/14/24 1505 DD/ 1030 TD/TT: 11/14/24 1100 Electronic Warfare Operator: us Olamide Stevens MD IMG BI PROCEDURES Fin al Result * Hm Colonoscopy (04/12/2022 10:07 PM EDT) us Historical Provider HEALTH MAINTENANCE Final Result documented in this encounter Visit Diagnoses Not on filedocumented in this encounter Additional Health Concerns Assessment Noted Time PHQ-9 Depression Total Score: 024 9:17 AM EDT documented as of this encounter Care Teams Crop Duster Relationship Specialty Start Date End Date Olamide Chandler MD [address] [place] [address] PCP - General Family Medicine 07/28/20 documented as of this encounter
--- OUTSIDE RECORDS SUMMARY | 2025-04-02 07:59 | XMS_ITS | Encounter Summary ---
Author Organization [employer] Address [address] [facility] 7t [place] [address] Care Team Providers Care Tubing Machine Operator Name Role Phone Olamide Chandler MD Primary Care Provide r Encounter Details Date Type Department Care Team ([facility] st Contact Info) Description 08/09/2024 Orders Only [facility] [address] [place], [place] [phone] Olamide Chandler MD [address] [place], [place] [phone] Social History Tobacco Use Types Packs/Day Years [...] Description 04/11/2025 11:15 AM EDT Office Visit [facility] [address] [place] [address] Olamide Chandler MD [address] [place] [address] documented as of this encounter Visit Diagnoses Not on filedocumented in this encounter Additional Health Concerns Assessment Noted Time PHQ-9 Depression Total Score: 25 024 9:17 AM EDT documented as of this encounter Care Teams Tubing Machine Operator Relationship Specialty Start Date End Date Olamide Chandler MD [address] [place] [address] PCP - General Family Medicine 07/28/20 documented as of this encounter
--- OUTSIDE RECORDS SUMMARY | 2025-04-02 07:59 | XMS_ITS | Encounter Summary ---
Author Organization [employer] Address [address] [facility] 7 [place] [address] Care Team Providers Care Scrum Master Name Role Phone Olamide Chandler MD Primary Care Provide r Reason for Visit * Reason Onset Date Comments Pre-visit Planning 03/02/2024 Encounter Details Date Type Department Care Team ([facility] st Contact Info) Description 03/02/2024 Telephone [facility] [address] [place], [place] [phone] Olamide Chandler MD [address] [place], [place] [phone] Pre-visit Planning Social History Tobacco Use Types [...] Description 04/11/2025 11:15 AM EDT Office Visit [facility] [address] [place] [address] Olamide Chandler MD [address] [place] [address] documented as of this encounter Visit Diagnoses Not on filedocumented in this encounter Additional Health Concerns Assessment Noted Time PHQ-9 Depression Total Score: 18 024 9:06 AM EST documented as of this encounter Care Teams Scrum Master Relationship Specialty Start Date End Date Olamide Chandler MD [address] [place] [phone] PCP - General Family Medicine 07/28/20 documented as of this encounter
--- OUTSIDE RECORDS SUMMARY | 2025-04-02 07:59 | XMS_ITS | Clinical Summary ---
Author Organization [facility] Address [address] [place] [address] Phone Care Team Providers Care Quiller Tender Name Role Phone Unavailable Primary Care Provider Unavailabl e Encounters Date Type Department Care Team Description 01/24/2025 11:54 AM EDT - 01/24/2025 11:59 PM EDT Hospital Encounter [facility] [address] [place] [address] Meningioma (CMS/HCC V24, CMS/HCC V28) [...] Last Done Comments Breast Cancer Screening 1970 Colorectal Cancer Screening: Colonoscopy 1970 Cervical Cancer Screening: Pap Smear 10/21/1992 RSV Immunization Adult Patients (1 - Risk 50-74 years 1-dose series) 10/21/2021 Cholesterol Screening (Lipid Panel) 08/26/2023 HIV Screening 08/26/2023 Hepatitis C Screening [...] CONTRAST Routine 01/24/2025 12:31 PM EDT Meningioma ([facility] V24, [facility] V28) from Last 3 Months Results * [...] Signed Date: 01/25/2025 16:18 ET Workstation ID: [id number] Transcribed By: Self Edit Transcribed Date: 01/25/2025 [...] Signed Date: 01/25/2025 16:18 ET Workstation ID: [id number] Transcribed By: Self Edit Transcribed Date: 01/25/2025 16:09 ET us Olamide Stevens MD IMG MRI PROCEDURES Fi nal Result from Last 3 Months
--- OUTSIDE RECORDS SUMMARY | 2025-04-02 08:00 | XMS_ITS | Encounter Summary ---
Author Organization [employer] Address [address] [facility] 7 [place] [address] Care Team Providers Care Supervisor Poultry Farm Name Role Phone Olamide Chandler MD Primary Care Provide r Reason for Visit * Reason Onset Date Comments Med Refill 12/04/2024 Encounter Details Date Type Department Care Team (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 * Telephone Encounter - Joselyn Boyer - 12/04/2024 2:46 PM EDT TC from pt requesting medication refill. Medications needing refill : Zepbound 2.5 MG/0.5ML solution auto-injector To be sent to: [id number] - [place] [address] [facility] signed by Joselyn Boyer at 12/04/2024 2:46 PM EDT documented in this encounter Plan of Treatment Upcoming Encounters Date Type Department Care Team (Late st Contact Info) Description 04/11/2025 11:15 AM EDT Office Visit [facility] [address] [place] [address] Olamide Chandler MD [address] [place] [address] documented as of this encounter Visit Diagnoses Not on filedocumented in this encounter Additional Health Concerns Assessment Noted Time PHQ-9 Depression Total Score: 25 024 9:17 AM EDT documented as of this encounter Care Teams Supervisor Poultry Farm Relationship Specialty Start Date End Date Olamide Chandler MD [address] [place] [phone] PCP - General Family Medicine 07/28/20 documented as of this encounter
--- OUTSIDE RECORDS SUMMARY | 2025-04-02 08:00 | XMS_ITS | Encounter Summary ---
Author Organization [facility] Address [address] [place] [address] Phone Care Team Providers Care Batch Freezer Name Role Phone Olamide Chandler MD Primary Care Provide r Encounter Details Date Type Department Care Team (Late st Contact Info) Description 12/31/2024 Documentation Only [facility] [address] [place] [address] Mahendra Medel DO [address] [facility] [place] [address] Social History Tobacco Use Types [...] Visit [facility] [address] [place] [address] Mahendra Medel DO [address] [facility] [place] [address] documented as of this encounter [...] Creatinine, Ur 40.8 Not Estab. mg/dL [facility] Albumin, Urine <3.0 Not Estab. ug/mL [facility] Albumin/Creatin ine Ratio <7 0 - 29 mg/g creat [facility] Comment: Normal: 0 - 29 Moderately increased: 30 - 300 Severely increased: >300 Urine Urine specimen obtained by clean catch procedure / Unknown 01/01/2025 9:37 AM EDT 01/01/2025 us Mahendra Medel DO LAB URINE ORDERABLES Final Resu lt [facility] [address] [place] [address] * (ABNORMAL) Renal function panel (01/01/2025 9:37 AM EDT) Glucose 105(H) 70 - 99 mg/dL [facility] BUN 10 6 - 24 mg/dL [facility] Creatinine 0.82 0.57 - 1.00 mg/dL [facility] eGFR CKD-EPI CR 2020 85 >59 mL/min/1.7 3 [facility] BUN/Creatinine Ratio 12 9 - 23 [facility] Sodium 138 134 - 144 mmol/L [facility] Potassium 4.4 3.5 - 5.2 mmol/L [facility] Chloride 101 96 - 106 mmol/L [facility] Bicarbonate (CO2) 22 20 - 29 mmol/L [facility] Calcium 9.1 8.7 - 10.2 mg/dL [facility] Albumin 4.1 3.8 - 4.9 g/dL [facility] Phosphorus 3.1 3.0 - 4.3 mg/dL [facility] Blood Venous blood / Unknown 01/01/2025 9:37 AM EDT 01/01/2025 us Mahendra Medel DO LAB BLOOD ORDERABLES Final Resu lt [facility] [address] [place] [address] documented in this encounter Visit Diagnoses Diagnosis Chronic kidney disease, stage 2 (mild)- Primary 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
--- OUTSIDE RECORDS SUMMARY | 2025-04-02 08:00 | XMS_ITS | Encounter Summary ---
Author Organization [employer] Address [address] [facility] 7t [place] [address] Care Team Providers Care Paper Roll Machine Operator Name Role Phone Olamide Chandler MD Primary Care Provide r Encounter Details Date Type Department Care Team ([facility] st Contact Info) Description 02/20/2025 Results Follow-Up [facility] [address] [place], [place] [phone] Brittney Graham MD [address] [place], [place] [phone] Vascular US carotid artery duplex bilateral Social History Tobacco Use Types Packs/Day Years [...] Description 04/11/2025 11:15 AM EDT Office Visit [facility] [address] [place] [address] Olamide Chandler MD [address] [place] [address] documented as of this encounter Visit Diagnoses Not on filedocumented in this encounter Additional Health Concerns Assessment Noted Time PHQ-9 Depression Total Score: 25 024 9:17 AM EDT documented as of this encounter Care Teams Paper Roll Machine Operator Relationship Specialty Start Date End Date Olamide Chandler MD [address] [place], [place] [phone] PCP - General Family Medicine 07/28/20 documented as of this encounter
--- OUTSIDE RECORDS SUMMARY | 2025-04-02 08:00 | XMS_ITS | Encounter Summary ---
Author Organization [employer] Address [address] [facility] 7t [place] [address] Care Team Providers Care Engineering Technician Parking Name Role Phone Olamide Chandler MD Primary Care Provide r Encounter Details Date Type Department Care Team ([facility] Contact Info) Description 09/01/2022 Orders Only [facility] MEDICINE [address] [place] [phone] Renée Okeefe MA Social History Tobacco Use [...] Department Care Team (Late Contact Info) Description 04/11/2025 11:15 AM EDT Office Visit [facility] MEDICINE [address] [place] [phone] Olamide Chandler MD [address] [place] [address] documented as of this encounter Procedures Procedure [...] (04/17/2023 1:20 AM EDT) Color Urine Yellow [facility] Appearance Urine Clear [facility] PH 6.0 5.0 - 9.0 [facility] Glucose Urine UA Negative Negative mg/dL [facility] Urine Blood Negative Negative [facility] Specific [place] - Urine <=1.005 1.005 - 1.025 [facility] Urine Protein Negative Neg-Trace mg/dL [facility] Urine Ketones Negative Negative mg/dL [facility] Nitrite Urine Negative Negative [facility] Leukocyte Esterase Urine Trace(A) Negative [facility] RBC Urine 0-2 0 - 2 /HPF [facility] Urine WBC 0-5 0 - 5 /HPF [facility] Urine Squamous Epithelial Cell 0-2 0 - 2 /HPF [facility] Urine Bacteria None Seen None Seen [facility] Hyaline Casts, Urine 0-2 0 - 2 /LPF [facility] 04/17/2023 1:20 AM EDT 04/17/2023 1:23 AM EDT Narrative [facility] - 04/17/2023 1:42 AM EDT [id number], Clean Catch us [facility] External Provider LAB URI NE ORDERABLES Final Result Performing Organization Address City/[facility]/ZIP Co de Phone Number [facility] [address] [place] [address] [phone] * B Type Natriuretic Peptide (BNP) (04/17/2023 12:46 AM EDT) B Type Natriuretic Peptide 44 <100 pg/mL [facility] Comment:For those patients w ho are being treated with Natrecor(nesiritide, recombinant BNP), BNP testing should beperformed at least two hours post treatment in order toensure that only endogenous levels of BNP are detected. 04/17/2023 12:4 6 AM EDT 04/17/2023 12:53 AM EDT [facility] External Provider LAB BLO OD ORDERABLES Final Result Performing Organization Address [facility] Co de Phone Number [facility] [address] [place] [address] [phone] * BI Mammogram Screening Tomosynthesis Bilateral (09/09/2022 8:30 AM EDT) Anatomical Region Laterality Modality Breast Bilateral Mammography 09/09/2022 8:30 AM EDT Narrative 09/10/2022 11:56 AM EDT [facility] [address] [place] [address] Mammography Report Signed Patient: Laisha Ye I MR#: [id number] : 1970 Acct:[id number] Age/Sex: 51 / F ADM Date: 09/09/22 Loc: HO.MAMMO Attending Dr: Olamide Stevens MD Ordering Physician: Olamide Chandler MD Results: 1Negative Date of Service: 09/09/22 Follow Up: 1 Year From Orig inal Mammogram Procedure(s): MM tomosynthesis screening BI Accession Number(s): [id number] cc: Olamide Chandler MD EXAMINATION: MM SCREENING [...] in OV> 09/10/22 1153 DD/ 0830 TD/TT: Superintendent Plant Protection: SK Procedure Note Donotuseinterpreter, Image - [facility]/10/2022 [facility] [address] [place] [address] Mammography Report Signed Patient: Laisha Ye [facility]#: [id number] : 1970Acct:[id number] Age/Sex: 51 / FADM Date: 09/09/22 Loc: HO.MAMMO Attending Dr: Olamide Stevens MD Ordering Physician: Olamide Chandler MDResults: 1Negative Date of Service: 09/09/22Follow Up: 1 Year From Orig inal Mammogram Procedure(s): MM tomosynthesis screening BI Accession Number(s): [id number] cc: Olamide Chandler MD EXAMINATION: MM SCREENING [...] in OV> 09/10/22 1153 DD/ 0830 TD/TT: Superintendent Plant Protection: SAURAV [facility] External Provider IMG BI PROCEDURES Edited Result - Final documented in this encounter Visit Diagnoses Not on filedocumented in this encounter Care Teams Engineering Technician Parking Relationship Specialty Start Date End Date Olamide Chandler MD [address] [place] [phone] PCP - General Family Medicine 07/28/20 documented as of this encounter
--- OUTSIDE RECORDS SUMMARY | 2025-04-02 08:00 | XMS_ITS | Encounter Summary ---
Author Organization [employer] Address [address] [facility] 7 [place] [address] Care Team Providers Care Portfolio Accountant Name Role Phone Olamide Chandler MD Primary Care Provide r Reason for Visit * Reason Onset Date Comments Med Refill 01/07/2025 Encounter Details Date Type Department Care Team ([facility] st Contact Info) Description 01/07/2025 Telephone [facility] MEDICINE [address] [place], [place] [phone] Olamide Chandler MD [address] [place], [place] [phone] Med Refill Social History Tobacco Use Types [...] MG/0.5ML solution auto-injector To be sent to: [id number] - [place], [place] - [address] [place] [address] [facility] documented in this encounter Plan of Treatment Upcoming Encounters Date Type Department Care Team ([facility] st Contact Info) Description 04/11/2025 11:15 AM EDT Office Visit [facility] MEDICINE [address] [place] [phone] Olamide Chandler MD [address] [place] [address] documented as of this encounter Visit Diagnoses Diagnosis Class 3 severe obesity due to excess calories with serious comorbidity and body mass index (BMI) of 45.0 to 49.9 in adult (HCC) documented in this encounter Additional Health Concerns Assessment Noted Time PHQ-9 Depression Total Score: 25 024 9:17 AM EDT documented as of this encounter Care Teams Portfolio Accountant Relationship Specialty Start Date End Date Olamide Chandler MD [address] [place] [address] PCP - General Family Medicine 07/28/20 documented as of this encounter
--- OUTSIDE RECORDS SUMMARY | 2025-04-02 08:00 | XMS_ITS | Encounter Summary ---
Author Organization [employer] Address [address] [facility] 7 [place] [address] Care Team Providers Care Industrial Relations Director Name Role Phone Olamide Chandler MD Primary Care Provide r Reason for Visit * Reason Onset Date Comments Prior Authorization 11/28/2024 Encounter Details Date Type Department Care Team (Late st Contact Info) Description 11/28/2024 Telephone [facility] MEDICINE [address] [place], [place] [phone] Olamide Chandler MD [address] [place], [place] [phone] Prior Authorization (/) Social History Tobacco Use [...] Description 04/11/2025 11:15 AM EDT Office Visit [facility] MED[facility]INE [address] [place] [address] Olamide Chandler MD [address] [place], [place] [phone] documented as of this encounter Visit Diagnoses Not on filedocumented in this encounter Additional Health Concerns Assessment Noted Time PHQ-9 Depression Total Score: 25 024 9:17 AM EDT documented as of this encounter Care Teams Industrial Relations Director Relationship Specialty Start Date End Date Olamide Chandler MD [address] [place] [phone] PCP - General Family Medicine 07/28/20 documented as of this encounter
--- OUTSIDE RECORDS SUMMARY | 2025-04-02 08:00 | XMS_ITS | Data Portability ---
Author Organization [place] - [facility], Allergy Address [address] [address] Care Team Providers Care Chrome Tanner Name Role Phone PEGGY GILES Primary Care Provider Assessment Encounter Date Assessment Date Assessment LastModified by Organization Details LastModified Time 02/06/2025 02/06/2025 54 year old female, with a history of KARLA on CPAP therapy, presents for evaluation of dizziness. MRI of the brain done at [facility] on 01/25/25 to monitor a meningioma incidentally showed a small mucous retention cyst in the posterior maxillary antrum. Bilateral tympanic membranes are intact with well aerated middle ear spaces. No evidence of effusion or infection. Cornish-Hallpike was negative for nystagmus bilaterally, however she did endorse lightheadedness upon sitting upright. Patient also exhibited swaying with Romberg test. Fukuda marching test was positive for rotation to the right. We discussed that the patient's history and symptoms are not consistent with otologic pathology. Recommend following up with her senior escrow officer as her newly prescribed carvedilol may be contributing, though she will likely benefit from additional cardiac workup. I have also placed a referral to neurology to further assess for cerebellar dysfunction. Patient is prediabetic with a recent A1c of 5.4. We reviewed the importance of maintaining blood sugar levels within an appropriate range to reduce the risk of diabetic neuropathy. Otherwise, I would be happy to see her back as needed for any new or worsening concerns. All questions were answered. [email or web address] Not available 02/06/2025 10:38:49 Plan of Treatment Reminders Order Date Submit Date Provider Last Modified By Organization Details Last Modified Time Details Appointments None recorded. Lab None recorded. Referral neurologis t referral - Lightheade dness and off balance, positive Romberg and Fukuda marching test 2024 025 [facility] Neurology Scheduling, [address] [facility], [place], [address], 5 11:37:36 Procedures None recorded. Surgeries None recorded. Imaging None recorded. Medication Orders None recorded. Patient TargetsNo targets recorded. Patient InstructionsNo instructions recorded. Reason for Referral Neurologist Referral for Dis order of brain Lightheadedness and off balance, positive Romberg and Fukuda marching test Referring Physician: Bea Galan, Otolaryngology, Encounter Date: 02/06/2025 Problems Name Problem SNOMED Code Status Onset Date Resolution Date Notes Provider Name and Address Organization Details Recorded Time Acute eczematoi d otitis externa 38962126 Active 2021 Acute eczematoi d otitis externa, bilateral ; Note: Date Diagnosed : 12/16/2021 9:33 AM (H60.543) Not Available Count includes the [facility] 4 02:24:58 Dizziness and giddiness 293088840 Active 2023 Dizziness and giddiness ; Note: Date Diagnosed : 08/30/2023 1:50 PM (R42) Not Available Count includes the [facility] 4 02:24:42 Impacted cerumen of bilateral ears 39487697628 16841 Active 2023 Impacted cerumen, bilateral ; Note: Date Diagnosed : 08/30/2023 1:50 PM (H61.23) Not Available Count includes the [facility] 4 02:25:05 Lighthead edness 981644373 Active 2024 NADIR MEZA [address] [facility] [address], [place], [address] , [place] - [facility] 5 10:04:06 Intracran ial meningiom a 699879852 Active 2024 NADRI MEZA 100 [facility] [address], [place], [address] , [place] - [facility] [employer] 5 10:22:49 Referred otalgia of right ear 16581505313 49774 Active 2024 NADIR MEZA 100 [facility] 100, [place], [address] , [facility] - [facility] [employer] 5 10:24:37 Obstructi ve sleep apnea syndrome 08698681 Active 2024 NADIR MEZA 100 [facility] [address], [place], [address] , [facility] - [facility] [employer] 5 10:31:44 Disorder of brain 69121211 Active 2024 NADIR MEZA 100 [facility] [address], [place], [address] , [facility] - [facility] [employer] 20:28:53 Problem Notes None recorded. Medical Equipment None Reported. Allergies Allergen ID Allergen Name Allergen Category Reaction Reaction Severity Criticality Documentation Date Start Date Code Code System Note Provider Name and Address Organization Details Recorded Time 42999 Prozac medicatio n other Not available Not available 11/01/2023 75552 RxNorm React ion: other react ion, Unkno wn; Not Available Count includes the [facility] 4 00:57:12 21194 Tums medicatio n other Not available Not available 11/01/2023 26668 8 RxNorm React ion: other react ion, Unkno wn; Not Available Count includes the [facility] 4 00:57:23 Medications Name Sig Start Date Stop Date Status Note LastModified by Organization Details LastModified Time carvedilo l 12.5 mg tablet TAKE 1 TABLET BY MOUTH TWICE DAILY WITH FOOD active Not Available Not Available No t Available ammonium lactate 12 % lotion APPLY TOPICALL Y NEEDED FOR DRY SKIN active Not Available Not Available No t Available trazodone 50 mg tablet 08/29 completed Medicati on ID: [id number] B rand Name: trazodon e Send Method: E-Prescr ibed Sub s Allowed: subs OK Medic ationGen ericName : trazodon e Not Available Not Available Not Available citalopra m 10 mg tablet TAKE 1 TABLET BY MOUTH DAILY IN ADDITION TO 20 MG TABLET active Not Available Not Available No t Available sucralfat e 1 gram tablet 08/29 completed Medicati on ID: [id number] B rand Name: sucralfa te Send Method: E-Prescr ibed Sub s Allowed: subs OK Medic ationGen ericName : sucralfa te Not Available Not Available Not Available Excedrin Migraine 250 mg-250 mg-65 mg tablet 08/29 completed Medicati on ID: [id number] B rand Name: Excedrin Migraine Send Method: E-Prescr ibed Sub s Allowed: subs OK Medic ationGen ericName : Excedrin Migraine Not Available Not Available Not Available acetamino phen 500 mg tablet 08/29 completed Medicati on ID: [id number] B rand Name: acetamin ophen Se nd Method: E-Prescr ibed Sub s Allowed: subs OK Medic ationGen ericName : acetamin ophen Not Available Not Available Not Available carvedilo l 3.125 mg tablet TAKE 1 TABLET BY MOUTH TWICE DAILY WITH FOOD active Not Available Not Available No t Available levothyro xine 75 mcg tablet TAKE 1 TABLET BY MOUTH IN THE MORNING active Not Available Not Available No t Available Macrobid 100 mg capsule 08/29 completed Medicati on ID: [id number] B rand Name: Macrobid Send Method: E-Prescr ibed Sub s Allowed: subs OK Medic ationGen ericName : Macrobid Not Available Not Available Not Available citalopra m 20 mg tablet TAKE 1 TABLET BY MOUTH DAILY active Not Available Not Available No t Available prednisol one acetate 1 % eye drops,jaime pension SHAKE LIQUID AND INSTILL 1 DROP IN BOTH EYES FOUR TIMES DAILY active Not Available Not Available No t Available lorazepam 0.5 mg tablet TAKE 1 TABLET BY MOUTH TWICE DAILY NEEDED active Not Available Not Available No t Available amitripty line 10 mg tablet 08/29 completed Medicati on ID: [id number] B rand Name: amitript yline Se nd Method: E-Prescr ibed Sub s Allowed: subs OK Medic ationGen ericName : amitript yline Not Available Not Available Not Available meclizine 25 mg tablet active Medicati on ID: [id number] B rand Name: meclizin e Send Method: E-Prescr ibed Sub s Allowed: subs OK Medic ationGen ericName : meclizin e Not Available Not Available Not Available baclofen 10 mg tablet 08/29 completed Medicati on ID: [id number] B rand Name: baclofen Send Method: E-Prescr ibed Sub s Allowed: subs OK Medic ationGen ericName : baclofen Not Available Not Available Not Available amlodipin e 10 mg tablet 02/06 completed Medicati on ID: [id number] B rand Name: amlodipi ne Send Method: E-Prescr ibed Sub s Allowed: subs OK Medic ationGen ericName : amlodipi ne Not Available Not Available Not Available tacrolimu s 0.1 % topical ointment APPLY TOPICALL Y TO FACE TWICE DAILY NEEDED FOR FLARES active Not Available Not Available No t Available lisinopri l 10 mg tablet 02/06 completed Medicati on ID: [id number] B rand Name: lisinopr il Send Method: E-Prescr ibed Sub s Allowed: subs OK Medic ationGen ericName : lisinopr il Not Available Not Available Not Available losartan 25 mg tablet 02/06 completed Medicati on ID: [id number] B rand Name: losartan Send Method: E-Prescr ibed Sub s Allowed: subs OK Medic ationGen ericName : losartan Not Available Not Available Not Available Ear Drops (carbamid e peroxide) 6.5 % INSTILL 5 DROPS INTO EACH EAR TWICE DAILY FOR 4 DAYS active Not Available Not Available No t Available docusate sodium 100 mg capsule TAKE 1 CAPSULE BY MOUTH TWICE DAILY FOR 10 DAYS active Not Available Not Available No t Available omeprazol e 20 mg capsule,d elayed release TAKE 1 CAPSULE BY MOUTH EVERY DAY BEFORE BREAKFAS T active Not Available Not Available No t Available monteluka st 10 mg tablet 08/29 completed Medicati on ID: [id number] B rand Name: monteluk ast Send Method: E-Prescr ibed Sub s Allowed: subs OK Medic ationGen ericName : monteluk ast Not Available Not Available Not Available fluticaso ne 100 mcg-salme terol 50 mcg/dose blistr powdr for inhalatio n 08/29 completed Medicati on ID: [id number] B rand Name: fluticas one propion- salmeter ol Send Method: E-Prescr ibed Sub s Allowed: subs OK Medic ationGen ericName : fluticas one propion- salmeter ol Not Available Not Available Not Available polyethyl tejas glycol 3350 17 gram/dose oral powder 08/29 completed Medicati on ID: [id number] B rand Name: polyethy jermaine glycol 3350 Sen d Method: E-Prescr ibed Sub s Allowed: subs OK Medic ationGen ericName : polyethy jermaine glycol 3350 Not Available Not Available Not Available albuterol sulfate HFA 90 mcg/actua tion aerosol inhaler 08/29 completed Medicati on ID: [id number] B rand Name: albutero l sulfate Send Method: E-Prescr ibed Sub s Allowed: subs OK Medic ationGen ericName : albutero l sulfate Not Available Not Available Not Available betametha sone dipropion ate 0.05 % topical ointment APPLY TO FOOT TWICE DAILY NEEDED FOR FLARES. DECREASE USE SYMPTOMS IMPROVE active Not Available Not Available No t Available fluticaso ne propionat e 50 mcg/actua tion nasal spray,jaime pension SHAKE LIQUID AND USE 2 SPRAYS IN EACH NOSTRIL EVERY MORNING NEEDED FOR ALLERGIE S active Not Available Not Available No t Available ipratropi um bromide 21 mcg (0.03 %) nasal spray active Medicati on ID: [id number] B rand Name: ipratrop ium bromide Send Method: E-Prescr ibed Sub s Allowed: subs OK Medic ationGen ericName : ipratrop ium bromide Not Available Not Available Not Available loratadin e 10 mg tablet 08/29 completed Medicati on ID: [id number] B rand Name: loratadi ne Send Method: E-Prescr ibed Sub s Allowed: subs OK Medic ationGen ericName : loratadi ne Not Available Not Available Not Available clindamyc in 1 % lotion APPLY TOPICALL Y TO INFLAMED LESIONS 1-2 TIMES DAILY NEEDED active Not Available Not Available No t Available bupropion HCl XL 150 mg 24 hr tablet, extended release TAKE 1 TABLET BY MOUTH EVERY MORNING DIRECTED active Not Available Not Available No t Available fluocinol one acetonide oil 0.01 % ear drops Instill 2 drop into both ears twice a week as directed 08/29 completed Medicati on ID: [id number] P josefribe d By Name: Rupinder Levine nd Name: fluocino lone acetonid e oil Send Method: E-Prescr ibed Sub s Allowed: subs OK Medic ationGen ericName : fluocino lone acetonid e oil Not Available Not Available Not Available cholecalc iferol (vitamin D3) 50 mcg (2,000 unit) capsule TAKE 1 CAPSULE BY MOUTH DAILY active Not Available Not Available No t Available Stimulant Laxative Plus 8.6 mg-50 mg tablet TAKE 1 TABLET BY MOUTH ONCE DAILY active Not Available Not Available No t Available Zepbound 5 mg/0.5 mL subcutane ous pen injector ADMINIST ER 5 MG UNDER THE SKIN 1 TIME EVERY WEEK active Not Available Not Available No t Available Zepbound 2.5 mg/0.5 mL subcutane ous pen injector ADMINIST ER 2.5 MG UNDER THE SKIN WEEKLY active Not Available Not Available No t Available Vitals Date Recorded Body height Body mass index (BMI) Body weight Provider Name and Address Organization Details Last Updated DateTime 02/06/2025 154.94 cm 34.8 kg/m2 32380 g Conchita Ford [place] - [facility] 02/06/2025 09:38:08 Social History None recorded. Functional Status None recorded. Mental Status None recorded. Family History Nothing Reported. Medical History No medical history recorded. Gynecological HistoryNo gynecological history recorded. Obstetrics History GPAL:G 0 P 0 0 0 0 Past Encounters Encounter ID Performer Location Encounter Start Date Encounter Closed Date Diagnosis/Indication Diagnosis SNOMED-CT Code Diagnosis ICD10 Code Diagnosis IMO Codes Diagnosis Note [id number] NADIR MEZA [facility] of [address] [address] 02/06/2025 09:28:44 02/06/2025 10:09:14 Lightheadedness 994785944 R42 21722 Intracrani al meningioma 209253955 D32.0 171578 Referred o talgia of right ear [id number] 326619 H92.01 M26.621 M79.11 The patient complains of chronic right-side d periauricu lar discomfort . Physical exam reveals no identifiab le source of these symptoms involving the auricle, external auditory canal, or tympanic membrane. However, examinatio n was positive for tenderness of the right jaw joint and alexander-TMJ musculatur e. The patient's periauricu lar discomfort is most likely consistent with intermitte nt inflammati on of the jaw joint or spasm of the surroundin g musculatur e. This is likely exacerbate d by chewing food on the right side of her mouth. Recommende d light massage, warm compresses , and anti-infla mmatories for symptomati c management . I also stressed chewing evenly on both sides of the mouth to keep from overworkin g the jaw joint and eating a soft food diet as needed. Jaw Joint Program informatio n sheet was shared. If this treatment plan is ineffectiv e, recommend follow up with their dentist. Referral to physical therapist who specialize s in TMJ disorders could also be considered . Obstructiv e sleep apnea syndrome 53753235 G47.33 1667128 Patient is unsure if her current pressure settings are causing her throat discomfort . She will follow up with her sleep medicine provider to discuss if this can be adjusted. Disorder of brain 373429 09 G93.40 [id number] Health Concerns Section Related Observation LastModified by Organization Detai ls LastModified Time None Recorded Concern Status LastModified by Organization Details LastModified Time None Recorded Advance Directives Directive None Recorded Payers Insurance Date Sequence Insurance Name Policy Number Policy Downey Covered Member ID Downey Member ID Guarantor Name 02/06/2025 1 [facility] - DOS ON OR AFTER 2022 - ONE CARE (MEDICARE REPLACEMENT/ADV ANTAGE - HMO) Laisha Riggins [id number] Laisha Riggins Notes Date Note Type Note Provider Name and Address Organization Details Recorded Time 02/06/2025 text/html ROS as noted in the HPI 54 year old female, with a history of KARLA on CPAP therapy, presents for evaluation of dizziness. Patient reports onset began a month ago and has occurred intermittently since then. She describes the sensation as lightheadedness and denies room spinning. Patient has tinnitus as baseline but does not notice any fluctuations in hearing. Patient has a meningioma which is being followed up by her primary care physician. MRI of the brain done at [facility] on 01/25/25 incidentally showed a small mucous retention cyst in the posterior maxillary antrum. She is unsure if this is the cause of her lightheadedness. No history of ear infections. Patient also endorses sharp pain deep inside both ears. She was diagnosed as prediabetic but her most recent A1c is 5.4. Patient did mention that she started carvedilol around the same time as the lightheadedness. This is being managed by her senior escrow officer. MARISOL JESUS MD [address] [place] [address], [phone], [facility] - [facility] 02/07/2025 12:30:48 OBGyn Episode No OBEpisode recorded.
--- OUTSIDE RECORDS SUMMARY | 2025-04-02 08:00 | XMS_ITS | Encounter Summary ---
Author Organization [employer] Address [address] [facility] [address] [place] [address] Care Team Providers Care Chemical Maker Name Role Phone Olamide Chandler MD Primary Care Provide r Reason for Visit * Reason Comments Med Refill Encounter Details Date Type Department Care Team (Late st Contact Info) Description 11/27/2024 Refill [facility] [address] [place], [place] [phone] Olamide Chandler MD [address] [place], [place] [phone] Class 3 severe obesity due to excess [...] Description 04/11/2025 11:15 AM EDT Office Visit [facility] [address] [place] [address] Olamide Chandler MD [address] [place] [address] documented as of this encounter Visit Diagnoses Diagnosis Class 3 severe obesity due to excess calories with serious comorbidity and body mass index (BMI) of 45.0 to 49.9 in adult (HCC) documented in this encounter Additional Health Concerns Assessment Noted Time PHQ-9 Depression Total Score: 25 024 9:17 AM EDT documented as of this encounter Care Teams Chemical Maker Relationship Specialty Start Date End Date Olamide Chandler MD [address] [place] [address] PCP - General Family Medicine 07/28/20 documented as of this encounter
--- OUTSIDE RECORDS SUMMARY | 2025-04-02 08:00 | XMS_ITS | Encounter Summary ---
Author Organization [employer] Address [address] [facility] 7t [place] [address] Care Team Providers Care Perinatal Tech Name Role Phone Olamide Chandler MD Primary Care Provide r Encounter Details Date Type Department Care Team ([facility] Contact Info) Description 08/18/2022 Telephone [facility] [address] [place], [place] [phone] Olamide Chandler MD [address] [place], [place] [phone] Social History Tobacco Use Types Packs/Day Years [...] Description 04/11/2025 11:15 AM EDT Office Visit [facility] [address] [place] [address] Olamide Chandler MD [address] [place] [address] documented as of this encounter Visit Diagnoses Not on filedocumented in this encounter Care Teams Perinatal Tech Relationship Specialty Start Date End Date Olamide Chandler MD [address] [place] [address] PCP - General Family Medicine 07/28/20 documented as of this encounter
--- OUTSIDE RECORDS SUMMARY | 2025-04-02 08:00 | XMS_ITS | Encounter Summary ---
Author Organization [employer] Address [address] [facility] 7t [place] [address] Care Team Providers Care Detective And Intelligence Analyst Name Role Phone Olamide Chandler MD Primary Care Provide r Encounter Details Date Type Department Care Team ([facility] st Contact Info) Description 12/04/2024 Orders Only [facility] [address] [place], [place] [phone] Olamide Chandler MD [address] [place], [place] [phone] Social History Tobacco Use Types Packs/Day Years [...] 11:15 AM EDT Office Visit [facility] [address] [place] [address] Olamide Chandler MD [address] [place] [address] documented as of this encounter Visit Diagnoses Not on filedocumented in this encounter Additional Health Concerns Assessment Noted Time PHQ-9 Depression Total Score: 25 024 9:17 AM EDT documented as of this encounter Care Teams Detective And Intelligence Analyst Relationship Specialty Start Date End Date Olamide Chandler MD [address] [place] [address] PCP - General Family Medicine 07/28/20 documented as of this encounter
--- OUTSIDE RECORDS SUMMARY | 2025-04-02 08:00 | XMS_ITS | Encounter Summary ---
Author Organization [employer] Address [address] [facility] 7t [place] [address] Care Team Providers Care Telecommunications Field Engineer Name Role Phone Olamide Chandler MD Primary Care Provide r Reason for Visit * Reason Comments Med Refill Encounter Details Date Type Department Care Team (Late st Contact Info) Description 11/03/2024 Refill [facility] [address] [place], [place] [phone] Olamide Chandler MD [address] [place], [place] [phone] Class 3 severe obesity due to excess [...] 10:15 AM EDT Sexual Orientation Lesbian or Ramirze 04/19/2022 10 :15 AM EDT documented as of this encounter Plan of Treatment Upcoming Encounters Date Type Department Care Team (Late st Contact Info) Description 04/11/2025 11:15 AM EDT Office Visit [facility] [address] [place] [address] Olamide Chandler MD [address] [place] [address] documented as of this encounter Visit Diagnoses Diagnosis Class 3 severe obesity due to excess calories with serious comorbidity and body mass index (BMI) of 45.0 to 49.9 in adult (HCC) documented in this encounter Additional Health Concerns Assessment Noted Time PHQ-9 Depression Total Score: 25 024 9:17 AM EDT documented as of this encounter Care Teams Telecommunications Field Engineer Relationship Specialty Start Date End Date Olamide Chandler MD [address] [place] [address] PCP - General Family Medicine 07/28/20 documented as of this encounter
--- OUTSIDE RECORDS SUMMARY | 2025-04-02 08:00 | XMS_ITS | Encounter Summary ---
Author Organization [employer] Address [address] [facility] 7t [place] [address] Care Team Providers Care Dairy Bar Manager Name Role Phone Olamide Chandler MD Primary Care Provide r Encounter Details Date Type Department Care Team ([facility] st Contact Info) Description 03/07/2025 Telephone [facility] [address] [place], [place] [phone] Olamide Chandler MD [address] [place], [place] [phone] Social History Tobacco Use Types Packs/Day Years [...] Description 04/11/2025 11:15 AM EDT Office Visit [facility] [address] [place] [address] Olamide Chandler MD [address] [place] [address] documented as of this encounter Visit Diagnoses Not on filedocumented in this encounter Additional Health Concerns Assessment Noted Time PHQ-9 Depression Total Score: 25 024 9:17 AM EDT documented as of this encounter Care Teams Dairy Bar Manager Relationship Specialty Start Date End Date Olamide Chandler MD [address] [place] [address] PCP - General Family Medicine 07/28/20 documented as of this encounter
--- OUTSIDE RECORDS SUMMARY | 2025-04-02 08:00 | XMS_ITS | Encounter Summary ---
Author Organization [facility] Address [address] [place] [address] Phone Care Team Providers Care Carpet Mechanic Name Role Phone Olamide Chandler MD Primary Care Provide r Encounter Details Date Type Department Care Team (Late st Contact Info) Description 01/07/2025 Documentation Only [facility] [address] [place] [address] Alisha Briceno [address] [place] [phone] Social History Tobacco Use Types Packs/Day Years [...] [facility] [address] [place] [phone] Mahendra Medel DO [address] [place] [address] [place] [phone] documented as of this encounter Visit Diagnoses Not on filedocumented in this encounter Care Teams Carpet Mechanic Relationship Specialty Start Date End Date Olamide Chandler MD [address] [place] [phone] PCP - General Internal Medicine 10/27/23 documented as of this encounter
--- NOTE | 2025-04-02 08:04 | MHC.OFFVIS ---
Intake Visit Reasons: 6m/ PVR Intake Note: Patient is present for 6m/PVR Urology Medication:none Antibiotic Allergy:none Blood Thinner:none Todays PVR:27ml's Stations Superintendent Required: No Allergies cinnamon (CINNAMON) Allergy (Intermediate, Verified 04/02/25 08:07) THROAT SWELLING soy Allergy (Intermediate, Verified 04/02/25 08:07) Itching calcium carbonate (From Tums) Allergy (Unknown, Verified 04/02/25 08:07) Unknown fluoxetine (From PROZAC) Allergy (Unknown, Verified 04/02/25 08:07) UNKNOWN HPI Comments Details: Laisha is a very pleasant 54-year-old female patient of Dr. Stevens. She has a past medical history of sleep apnea, GERD, arthritis of bilateral hands and knees, depression, polyarthralgia, vitamin-D deficiency, and hypothyroidism. She presents to the office today for follow-up of her lower urinary tract symptoms (urinary dribbling and bladder pressure) as well as congenital solitary kidney. In discussion with the patient today she reports she had been doing well up until about 2 months ago when she started experiencing straining with urination. She also reports awaiting referral to neurology for ongoing dizziness she has been experiencing over the last 4 months. In office urinalysis results reviewed with the patient today PVR 27 mls. Previous workup has included a retroperitoneal ultrasound 07/14 noting right kidney is normal in size and echotexture. No hydronephrosis. Mild expected compensatory hypertrophy. Left kidney absent. The urinary bladder is unremarkable pre void bladder volume is approximately 500 mL. Postvoid bladder volume is approximately 10 mL. Patient was previously referred to pelvic floor therapy however was unable to 10 and would like to reconsider this option. We did discussed potential causes of straining with urination as well as further treatment options and risks and benefits of these treatment options. She otherwise denies any UTI like symptoms. She denies nocturia, hematuria, dysuria, foul smelling urine, changes to urinary stream, flank pain, fever, and or chills. In office urinalysis results reviewed with the patient today. She does report a history of solitary kidney as she was only born with one kidney. She reports following up with Dr. Medel her monotype setter and has been told her kidney function is within normal limits. When asked she denies any previous history of and or labors. We discussed bladder triggers/irritants. She otherwise offers no other issues or concerns at this time. BUN: 09/11 16, 10/12 9, 01/11 9, 01/11 15, 03/14 13 Creatinine: 09/11 0.82, 10/12 0.76, 01/11 0.83, 01/11 0.79, 03/14 0.82 PFSH Medical History Sleep apnea GERD (gastroesophageal reflux disease) Osteoarthritis of hands, bilateral Osteoarthritis of knees, bilateral Flexor tenosynovitis of finger Bilateral hand pain Depression ESR raised Polyarthralgia Vitamin D deficiency Multinodular thyroid Hypothyroidism Surgical History Hx of colonoscopy Hx of tooth extraction Hx of endoscopy Hx of bilateral breast reduction surgery Family History Father Prostate cancer Hypothyroidism Mother Kidney problem Stroke Brother Kidney problem Social History Household Members: None Household Members Other:: Lives alone Housing: House Are you a primary intensive care anaesthetist to a significant other at home: No Do you presently have visiting nurse or other home services: Yes (WALLPAPER SCRAPER) 75 years or older and lives alone: No Alcohol intake: never Patient Tobacco Use Status: Never used Tobacco e-Cigarette/Vaping Use: Never Used service: No Current occupational status: disabled Review of Systems Const All systems reviewed & are unremarkable except as noted in HPI and below Physical Exam Const General: cooperative, healthy appearing, comfortable, no acute distress, well developed, alert and awake Orientation/consciousness: patient oriented x3 Limitations: no limitations HEENT Head: Yes normal to inspection, Yes normocephalic and Yes atraumatic Ears: hearing grossly normal bilaterally Eyes General: appearance normal, both eyes and all related structures Neck Neck: Yes normal visual inspection and Yes trachea midline Chest Chest palpation & inspection: normal inspection of the chest Resp Effort & Inspection: normal respiratory effort and able to speak in complete sentences Cardio Rate: regular rate GI Inspection: Yes normal to inspection General: Yes no CVA tenderness Back/Spine/Pelvis Back: no CVA tenderness Skin General skin exam: no rashes or lesions noted Neuro General: patient oriented x3 Extrem General: Yes normal to inspection Psych Appearance: grossly normal and well kempt Mental Status: mental status grossly normal Speech and movement: Normal speech and movement present and Clear speech present Affect: normal affect Attitude: cooperative Thought process: Normal thought process present Thought content: Normal thought content present Insight: Fair insight present (Psych) Judgement: Fair judgement present (Psych) Office Procedures Post Void Residual Post Residual Void Post Void Residual (PVR): 27 25488-Rcxj Void Residual by ultrasound Results AMB Urinalysis, Automated UA Leukoctes 70 Brenton/uL Last Edit by Korin Colon, [facility] on 04/02/25 09:25 UA Nitrite Negative Last Edit by Korin Ingleside, [facility] on 04/02/25 09:25 UA Urobilinogen 0.2 mg/dL Last Edit by Korin Ing[place]ide, [facility] on 04/02/25 09:25 UA Protein 0 mg/dL Last Edit by Korin [place], [facility] on 04/02/25 09:25 UA pH 6.0 Last Edit by Korin Ing[place]ide, [facility] on 04/02/25 09:25 UA Blood 0 Michael/uL Last Edit by Okrin Colon, [facility] on 04/02/25 09:25 UA Specific Wilburn 6.0 Last Edit by Korin Colon, [facility] on 04/02/25 09:25 UA Ketone Negative Last Edit by Korin Ingleside, [facility] on 04/02/25 09:25 UA Bilirubin 0 mg/dL Last Edit by Korin Colon, [facility] on 04/02/25 09:25 UA Glucose 0 mg/dL Last Edit by Korin Ingleside, [facility] on 04/02/25 09:25 Results Reviewed Results Reviewed: Laboratory Last Values Urine pH (Auto) 6.0 04/02/25 09:24 Specific Wilburn (Auto) 6.0 04/02/25 09:24 Urine Protein (Auto) 0 mg/dL 04/02/25 09:24 Glucose (UA)(Auto) 0 mg/dL 04/02/25 09:24 Urine Ketones (Auto) Negative 04/02/25 09:24 Urine Blood (Auto) 0 Michael/uL 04/02/25 09:24 Urine Nitrite (Auto) Negative 04/02/25 09:24 Urine Bilirubin (Auto) 0 mg/dL 04/02/25 09:24 Urine Urobilinogen (Auto) 0.2 mg/dL 04/02/25 09:24 Leukocyte Esterase (Auto) 70 Brenton/uL 04/02/25 09:24 Assessment & Plan Assessment & Plan (1) Solitary kidney, congenital: Code(s): Q60.0 - Renal agenesis, unilateral Category: Medical (2) Straining during urination: Code(s): R39.16 - Straining to void Category: Medical Plan In office urinalysis results reviewed with the patient today; as noted above PVR 27 mL. Will refer to pelvic floor therapy for further assessment evaluation. She currently denies any UTI like symptoms. We discussed healthy bathroom behaviors. We discussed bladder triggers and irritants. Will obtain retroperitoneal ultrasound for further assessment evaluation. BUN and creatinine results were reviewed. Continue to follow-up with nephrology as planned Follow-up in 3-6 months with PVR and imaging; or sooner with any issues, concerns, and or questions. Orders: Orders US retroperitoneal comp Today Q60.0 - Renal agenesis, unilateral, R39.16 - Straining to void AMB Urinalysis Automated Today Z13.9 - Encounter for screening, unspecified Urine Culture Today N39.0 - Urinary tract infection, site not specified PT Evaluation and Treatment Today R39.16 - Straining to void Patient Instructions: The patient had an opportunity to ask questions regarding the treatment plan. All questions were answered. Physical exam, labs, and imaging were discussed and reviewed in detail. As well as risks, benefits, and discussion of treatment choices. No major barriers to understanding were identified. The patient expressed understanding and agreement with the above treatment plan. The patient was made aware they should contact our office by phone for worsening of their current condition, the appearance of new symptoms, or with any questions or concerns. Compliance is encouraged with any medications and follow up testing that is ordered. It is a privilege to be allowed the opportunity to participate in? your urological care.? Again, if you have any questions or concerns If you have any questions or concerns please do not hesitate to contact me. The office is [phone]. This note is constructed using voice recognition software. While every effort has been made to ensure accuracy acetaldehyde converter operator errors may have been included. Yours sincerely, JASPREET Mendoza Coding Level of Care Code Est Pt Level 3 (97990) Diagnoses Solitary kidney, congenital Q60.0 Straining during urination R39.16 CPT Codes Post Residual Void - PVR CPT Code: 64955-Wnrf Void Residual by ultrasound ([id number])
== END 2025-04-02 08:45 | disposition home or self-care (01) ==
LOC: HO.HUSH 07:57
PROVIDERS: PCP Internal Medicine; Visit Provider Nurse Practitioner Family
DX: Q60.0 Renal agenesis, unilateral (principal); R39.16 Straining to void; Z13.9 Encounter for screening, unspecified
CPT/HCPCS: 99213

== ENCOUNTER 2025-04-18 09:54 | Outpatient (REF) | payer OTHER, SELFPAY ==
--- NOTE | ~2025-04-18 | XR_ITS ---
EXAMINATION: XR HIP 2 OR MORE VIEWS RIGHT HISTORY: pain after fall COMPARISON: There are no prior studies available for comparison. FINDINGS: Two views of the right hip are submitted. Osseous mineralization is normal. There is no fracture or dislocation. The joint space is maintained. The soft tissues are unremarkable. XR/XR hip RT min 2V IMPRESSION: Unremarkable examination of the right hip. Electronically signed by: Camilo Owens MD 04/18/2025 10:20 AM EDT
--- OUTSIDE RECORDS SUMMARY | 2025-04-18 11:44 | XMS_ITS | Clinical Summary ---
Author Organization [facility], Address [address] [place] [address] [place] [address] Phone Care Team Providers Care Emergency Care Tech Name Role Phone Olamide Chandler MD [...] 4 Contact dermatitis caused by urushiol from [place] poison james 12/28/2023 Bilateral lower leg edema 10/27/2023 Chronic kidney disease stage 3 03/11/2020 Hypothyroidism 03/11/2020 Renal agenesis 03/11/2020 Prediabetes 03/11/2020 Immunizations Immunization Administration Dates Next Due Hepatitis [...] Visit [facility] [address] [place] [address] Mahendra Medel, [address] [place] [phone] Health Maintenance Due Date Last Done Comments [...] Patients (6 to 49 Years) Discontinued 10/28/2023 Insurance [facility] One Care Dual SNP ([id number]) NADIR WALKER [id number] Care Teams Emergency Care Tech Relationship Specialty Start Date End Date Olamide Chandler MD [address] [place] [address] [place] [phone] PCP - General Internal Medicine 10/27/23
--- OUTSIDE RECORDS SUMMARY | 2025-04-18 11:44 | XMS_ITS | Encounter Summary ---
Author Organization [employer] Address [address] [facility] 7t [place] [address] Care Team Providers Care Ship Pilot Name Role Phone Olamide Chandler MD Primary Care Provide r Reason for Visit * Reason Comments Med Refill Encounter Details Date Type Department Care Team (Late st Contact Info) Description 11/03/2024 Refill [facility] [address] [place], [place] [phone] Olamide Chandler MD [address] [place], [place] [phone] Class 3 severe obesity due to excess [...] Care Team (Late st Contact Info) Description 07/12/2025 11:15 AM EST Office Visit [facility] [address] [place] [phone] Brittney Graham MD [address] [place] [address] documented as of this encounter Visit Diagnoses Diagnosis Class 3 severe obesity due to excess calories with serious comorbidity and body mass index (BMI) of 45.0 to 49.9 in adult (HCC) documented in this encounter Additional Health Concerns Assessment Noted Time PHQ-9 Depression Total Score: 25 024 9:17 AM EDT documented as of this encounter Care Teams Ship Pilot Relationship Specialty Start Date End Date Olamide Chandler MD [address] [place] [id number] PCP - General Family Medicine 07/28/20 documented as of this encounter
--- OUTSIDE RECORDS SUMMARY | 2025-04-18 11:44 | XMS_ITS | Encounter Summary ---
Author Organization [employer] Address [address] [facility] 7t [place] [address] Care Team Providers Care Buttoner Name Role Phone Olamide Chandler MD Primary Care Provide r Encounter Details Date Type Department Care Team ([facility] st Contact Info) Description 08/09/2024 Orders Only [facility] [address] [place], [place] [phone] Olamide Chandler MD [address] [place], [place] [phone] Social History Tobacco Use Types Packs/Day Years [...] Description 07/12/2025 11:15 AM EST Office Visit [facility] [address] [place] [address] Brittney Graham MD [address] [place] [address] documented as of this encounter Visit Diagnoses Not on filedocumented in this encounter Additional Health Concerns Assessment Noted Time PHQ-9 Depression Total Score: 25 024 9:17 AM EDT documented as of this encounter Care Teams Buttoner Relationship Specialty Start Date End Date Olamide Chandler MD [address] [place] [address] PCP - General Family Medicine 07/28/20 documented as of this encounter
--- OUTSIDE RECORDS SUMMARY | 2025-04-18 11:44 | XMS_ITS | Encounter Summary ---
Author Organization [employer] Address [address] [facility] 7t [place] [address] Care Team Providers Care Supplemental Manager Name Role Phone Olamide Chandler MD Primary Care Provide r Encounter Details Date Type Department Care Team ([facility] st Contact Info) Description 12/04/2024 Orders Only [facility] MED[facility]INE [address] [place], [place] [phone] Olamide Chandler MD [address] [place], [place] [phone] Social History Tobacco Use Types Packs/Day Years [...] Description 07/12/2025 11:15 AM EST Office Visit [facility] [address] [place] [address] Brittney Graham MD [address] [place] [address] documented as of this encounter Visit Diagnoses Not on filedocumented in this encounter Additional Health Concerns Assessment Noted Time PHQ-9 Depression Total Score: 25 024 9:17 AM EDT documented as of this encounter Care Teams Supplemental Manager Relationship Specialty Start Date End Date Olamide Chandler MD [address] [place] [address] PCP - General Family Medicine 07/28/20 documented as of this encounter
--- OUTSIDE RECORDS SUMMARY | 2025-04-18 11:44 | XMS_ITS | Encounter Summary ---
Author Organization [employer] Address [address] [facility] 7t [place] [address] Care Team Providers Care Web Worker Name Role Phone Olamide Chandler MD Primary Care Provide r Encounter Details Date Type Department Care Team (Late st Contact Info) Description 10/19/2024 Orders Only [facility] [address] [place] [address] Provider, MD Maurisio Social History Tobacco Use [...] Description 07/12/2025 11:15 AM EST Office Visit [facility] [address] [place] [address] Brittney Graham MD 230 [place], [place] [phone] documented as of this encounter Procedures Procedure [...] AM EDT Narrative 11/14/2024 3:08 PM EDT [facility] [address] [place] [address] Ultrasound Report Signed Patient: Laisha Ye I MR#: M [id number] : 1970 Acct:[id number] Age/Sex: 54 / F ADM Date: 11/14/24 Loc: HO.MAMMO Attending Dr: Olamide Stevens MD Ordering Physician: Olamide Chandler MD Date of Service: 11/14/24 Procedure(s): US breast LT limited mamm only Accession Number(s): [id number] cc: Olamide Chandler MD EXAMINATION: MM DIAGNOSTIC [...] 11/14/24 1505 DD/ 1100 TD/TT: 11/14/24 1100 Crop Setting Out Machine Operator: Procedure Note Donotuseinterpreter, Image - 11/14/2024 [facility] [address] [place], [place] [address] Ultrasound Report Signed Patient: Laisha Ye IMR#: M [id number] : 1970Acct:[id number] Age/Sex: 54 / FADM Date: 11/14/24 Loc: HO.MAMMO Attending Dr: Olamide Stevens MD Ordering Physician: Olamide Chandler MD Date of Service: 11/14/24 Procedure(s): US breast LT limited mamm only Accession Number(s): [id number] cc: Olamide Chandler MD EXAMINATION: MM DIAGNOSTIC [...] 11/14/24 1505 DD/ 1100 TD/TT: 11/14/24 1100 Crop Setting Out Machine Operator: us Olamide Stevens MD IMG US PROCEDURES Fin al Result * BI Mammogram Diagnostic Tomosynthesis added left (11/14/2024 10:30 AM EDT) Anatomical Region Laterality Modality Breast Left Mammography 11/14/2024 10:3 0 AM EDT Narrative 11/14/2024 3:08 PM EDT [facility] [address] [place] [address] Mammography Report Signed Patient: Laisha Ye I MR#: M [id number] : 1970 Acct:[id number] Age/Sex: 54 / F ADM Date: 11/14/24 Loc: HO.MAMMO Attending Dr: Olamide Stevens MD Ordering Physician: Olamide Chandler MD Results: 3.6MProbably Benign Finding - Short 6 M F/U Suggested Date of Service: 11/14/24 Follow Up: 6 Month F/U Procedure(s): MM tomosynthesis added views L Accession Number(s): [id number] cc: Olamide Chandler MD EXAMINATION: MM DIAGNOSTIC [...] 11/14/24 1505 DD/ 1030 TD/TT: 11/14/24 1100 Crop Setting Out Machine Operator: Procedure Note Donotuseinterpreter, Image - 11/14/2024 [facility] [address] [place] [address] [place] [address] Mammography Report Signed Patient: Laisha Ye [facility]#: M [id number] : 1970Acct:[id number] Age/Sex: 54 / FADM Date: 11/14/24 Loc: HO.MAMMO Attending Dr: Olamide Stevens MD Ordering Physician: Olamide Chandler MD Results: 3.6MProbably Benign Finding - Short 6 M F/U Suggested Date of Service: 11/14/24Follow Up: 6 Month F/U Procedure(s): MM tomosynthesis added views L Accession Number(s): [id number] cc: Olamide Chandler MD EXAMINATION: MM DIAGNOSTIC [...] 11/14/24 1505 DD/ 1030 TD/TT: 11/14/24 1100 Crop Setting Out Machine Operator: us Olamide Stevens MD IMG BI PROCEDURES Fin al Result * Hm Colonoscopy (04/12/2022 10:07 PM EDT) us Historical Provider HEALTH MAINTENANCE Final Result documented in this encounter Visit Diagnoses Not on filedocumented in this encounter Additional Health Concerns Assessment Noted Time PHQ-9 Depression Total Score: 024 9:17 AM EDT documented as of this encounter Care Teams Web Worker Relationship Specialty Start Date End Date Olamide Chandler MD [address] [place] [address] PCP - General Family Medicine 07/28/20 documented as of this encounter
--- OUTSIDE RECORDS SUMMARY | 2025-04-18 11:44 | XMS_ITS | Encounter Summary ---
Author Organization [employer] Address [address] [facility] 7t [place] [address] Care Team Providers Care Small Business Director Name Role Phone Olamide Chandler MD Primary Care Provide r Reason for Visit * Reason Comments Med Refill Encounter Details Date Type Department Care Team (Late st Contact Info) Description 11/27/2024 Refill [facility] [address] [place], [place] [phone] Olamide Chandler MD [address] [place], [place] [phone] Class 3 severe obesity due to excess [...] Office Visit [facility] [address] [place] [address] Brittney Graham MD [address] [place] [address] documented as of this encounter Visit Diagnoses Diagnosis Class 3 severe obesity due to excess calories with serious comorbidity and body mass index (BMI) of 45.0 to 49.9 in adult (HCC) documented in this encounter Additional Health Concerns Assessment Noted Time PHQ-9 Depression Total Score: 25 024 9:17 AM EDT documented as of this encounter Care Teams Small Business Director Relationship Specialty Start Date End Date Olamide Chandler MD [address] [place] [address] PCP - General Family Medicine 07/28/20 documented as of this encounter
--- OUTSIDE RECORDS SUMMARY | 2025-04-18 11:44 | XMS_ITS | Clinical Summary ---
Author Organization [facility] Address [address] [place] [address] Phone Care Team Providers Care Building Engineer Name Role Phone Unavailable Primary Care Provider Unavailabl e Encounters Date Type Department Care Team Description 01/24/2025 11:54 AM EDT - 01/24/2025 11:59 PM EDT Hospital Encounter [facility] MRI [address] [place] [address] Meningioma (CMS/HCC V24, CMS/HCC V28) [...] CONTRAST Routine 01/24/2025 12:31 PM EDT Meningioma ([facility] V24, [facility] V28) from Last 3 Months Results [...] Signed Date: 01/25/2025 16:18 ET Workstation ID: [id number] Transcribed By: Self Edit Transcribed Date: 01/25/2025 [...] Signed Date: 01/25/2025 16:18 ET Workstation ID: [id number] Transcribed By: Self Edit Transcribed Date: 01/25/2025 16:09 ET us Olamide Stevens MD IMG MRI PROCEDURES Fi nal Result from Last 3 Months
--- OUTSIDE RECORDS SUMMARY | 2025-04-18 11:44 | XMS_ITS | Encounter Summary ---
Author Organization [employer] Address [address] [facility] 7 [place] [address] Care Team Providers Care Rn Access Name Role Phone Olamide Chandler MD Primary Care Provide r Reason for Visit * Reason Onset Date Comments Prior Authorization 11/28/2024 Encounter Details Date Type Department Care Team (Late st Contact Info) Description 11/28/2024 Telephone [facility] MEDICINE [address] [place], [place] [phone] Olamide Chandler MD [address] [place], [place] [phone] Prior Authorization (/) Social History Tobacco Use [...] Description 07/12/2025 11:15 AM EST Office Visit [facility] [address] [place], [place] [phone] Brittney Graham MD [address] [place], [place] [phone] documented as of this encounter Visit Diagnoses Not on filedocumented in this encounter Additional Health Concerns Assessment Noted Time PHQ-9 Depression Total Score: 25 024 9:17 AM EDT documented as of this encounter Care Teams Rn Access Relationship Specialty Start Date End Date Olamide Chandler MD [address] [place] [address] PCP - General Family Medicine 07/28/20 documented as of this encounter
--- OUTSIDE RECORDS SUMMARY | 2025-04-18 11:44 | XMS_ITS | Clinical Summary ---
Author Organization [employer] Address [address] [facility] [address] [place] [address] Care Team Providers Care Baseball Inspector And Repairer Name Role Phone Olamide Chandler MD Primary Care Provide r Allergies Active Allergy Reactions Criticality Noted Date Comments Calcium Carbonate 09/11/2020 Other reaction(s): Hives Cinnamon Rash Low 06/08/2010 Other reaction(s): throat tight Fluoxetine Rash Low 04/16/2015 Other reaction(s): triggers migraine Lisinopril 10/28/2023 Soybean Oil 01/01/2021 Sumatriptan 03/11/2020 Medications citalopram (CeleXA) 20 MG tablet Take 20 mg by mouth in the morning. 06/29/19 23 Active sodium chloride (Redford Nasal Venango) 0.65 % nasal sprayIndications: COVID-19 1-2 sprays [...] itching 40 capsule 1 01/11/20 24 Active ammonium lactate (Lac-Hydrin) 12 % lotionIndications :Dry skin dermatitis Apply topically if needed for dry skin. 225 g 1 05/31/20 24 2024 Active pseudoephedrine (Sudafed) 30 MG tablet Take 1 tablet (30 mg) by mouth every 4 (four) hours if needed for congestion for up to 10 days. 30 tablet 06/05/20 24 Active senna-docusate (Senokot S) 8.6-50 MG tabletIndications :Constipation, unspecified constipation type Take 1 tablet by mouth Once per day. 30 tablet 11 08/31/19 25 2025 Active Tirzepatide-Weigh t Management (Zepbound) 5 MG/0.5ML solution auto-injectorIndi cations:Class 3 severe obesity due to excess calories with serious comorbidity and body mass index (BMI) of 45.0 to 49.9 in adult ([facility]) Inject 0.5 mL (5 mg) under the skin 1 (one) time per week. 2 mL 08/31/19 25 Active cholecalciferol VITAMIN D (Vitamin D-3) 50 MCG (1999 UT) capsuleIndication s:Vitamin D deficiency TAKE 1 CAPSULE BY MOUTH DAILY 90 capsule 1 11/20/19 25 Active levothyroxine (Synthroid, Levoxyl) 75 MCG tabletIndications :Other specified hypothyroidism TAKE 1 TABLET BY MOUTH IN THE MORNING 90 tablet 1 11/22/19 25 Active Tirzepatide-Weigh t Management (Zepbound) 2.5 MG/0.5ML solution auto-injectorIndi cations:Class 3 severe obesity due to excess calories with serious comorbidity and body mass index (BMI) of 45.0 to 49.9 in adult ([facility]) Inject 0.5 mL (2.5 mg) under the skin 1 (one) time per week. 2 mL 2 01/19/20 25 Active fluticasone (Flonase) 50 MCG/ACT nasal sprayIndications: Seasonal allergies SHAKE LIQUID AND USE 2 SPRAYS IN EACH NOSTRIL EVERY MORNING NEEDED FOR ALLERGIES 48 g 02/15/20 25 Active carvedilol (Coreg) 6.25 MG tabletIndications :Essential hypertension Take 1 tablet (6.25 mg) by mouth with breakfast and with evening meal. 60 tablet 11 02/20/20 25 2025 Active omeprazole (PriLOSEC) [address] capsuleIndication s:Gastroesophagea l reflux disease, unspecified whether esophagitis present TAKE 1 CAPSULE BY MOUTH EVERY DAY BEFORE BREAKFAST 90 capsule 04/15/20 Active buPROPion XL (Wellbutrin XL) 150 MG 24 hr tablet TAKE 1 TABLET BY MOUTH EVERY MORNING DIRECTED 07/28/192024 Discontinued citalopram (CeleXA) 10 MG tablet TAKE 1 TABLET BY MOUTH EVERY DAY IN ADDITION TO 20 MG TABLET 07/28/192024 Discontinued omeprazole (PriLOSEC) [address] capsuleIndication s:Gastroesophagea l reflux disease, unspecified whether esophagitis present TAKE 1 CAPSULE BY MOUTH EVERY DAY BEFORE BREAKFAST 90 capsule 01/16/202024 Discontinued Active Problems Problem Noted Date Diagnosed Date Right hip pain 04/11/2025 Vertigo 04/11/2025 Fibromyalgia 02/19/2025 Assessment & Plan (02/19/2025 2:35 [...] unspecified whether stage 3a or 3b CKD (CMS/HCC) 01/18/2025 Anxiety with depression 01/18/2025 Assessment & [...] PM EDT): 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 We discuss about avoiding scratching, use [...] will follow-up with them tomorrow, will order [facility] to check electrolytes that may be responsible [...] Encounters Date Type Department Care Team Description 04/13/2025 Refill [facility] [address] [place] [address] Olamide Chandler MD Gastroesophageal reflux disease, unspecified whether esophagitis present 04/11/2025 11:15 AM EDT Office Visit [facility] [address] [place] [address] Olamide Chandler MD Essential hypertension (Primary Dx); Right hip pain; Vertigo; Encounter for immunization; Fibromyalgia 04/11/2025 Travel 04/10/[address] [facility] [address] [place] [address] Olamide Chandler MD Chart Prep 04/04/2025 Travel 04/02/2025 Orders Only GENERIC EXTERNAL DATA DEPARTMENT Provider, Generic External Data 03/07/[address] [facility] [address] [place] [address] Olamide Chandler MD 02/28/[address] [address] Olamide Chandler MD Referral 02/20/[address] [facility] [address] [place] [address] Olamide Chandler MD 02/20/[address] [address] Olamide Chandler MD Stable Lab Orders 02/20/2025 Results Follow-Up [facility] [address] [place] [address] Brittney Graham MD Vascular US carotid artery duplex bilateral 02/20/[address] [facility] [address] [place] [address] Olamide Chandler MD Results 02/19/2025 11:15 AM EDT Office Visit [address] [address] Olamide Chandler MD Fibromyalgia (Primary Dx); Essential hypertension; Dyspnea, unspecified type; Burning sensation; Dizziness 02/19/2025 Travel 02/14/[address] [facility] [address] [place], [place] [phone] Olamide Chandler MD Seasonal allergies 02/12/2025 Travel 02/08/[address] [phone] Olamide Chandler MD 01/18/2025 11:30 AM EDT Office Visit [address] [address] Olamide Chandler MD Prediabetes (Primary Dx); Essential hypertension; Stage 3 chronic kidney disease, unspecified whether stage 3a or 3b CKD (CMS/HCC); Meningioma, cerebral (CMS/HCC); Anxiety with depression; Class 3 severe obesity due to excess calories with serious comorbidity and body mass index (BMI) of 45.0 to 49.9 in adult; Dietary counseling; Exercise counseling 01/18/2025 Travel 01/17/[address] [phone] Olamide Chandler MD Chart Prep from Last 3 Months Immunizations Immunization Administration Dates Next Due DTP 09/10/1983, 0,08/05/1978,1977,01/28/1978 Hep A, Adult 12/07/2017,11/05/2015 Hep B, adult 12/07/2017,01/17/2017,03/03/2016 IPV 09/10/1983, 0,08/03/1978,1977,01/28/1978 Influenza injectable quadriv alent preservative free 03/12/2022,04/08/2021,03/14/2019,2017,03/18/2016 Influenza, IIV3, injectable 03/13/2014,0 03/09/2013,04/11/2008,2006,06/15/2006 Influenza, seasonal, injecta ble, preservative free 04/11/2025,03/12/2024,02/16/2017,2014 MMR 08/12/1978,01/28/1978 Pfizer Covid-19 Vaccine 12+ 10/28/2023 [...] Answer Date Recorded Patient Health Questionnaire-9 Score 23 04/11/2025 Patient Health Questionnaire-9 Score 23 04/11/2025 Last PHQ-9: Questionnaire Data Not on file 1 Housing Stability Answer Date Recorded What is [...] Date Recorded Patient Health Questionnaire-2 Score 6 04/11/2025 Internet Access Answer Date Recorded Internet Access [...] Sign Reading Time Taken Comments Blood Pressure 126/84 04/11/2025 11:26 AM EDT Pulse 78 04/11/2025 11:03 AM EDT Temperature 36.1 C (96.9 F) 04/11/2025 11:03 AM EDT Respiratory Rate 21 04/11/2025 11:03 AM EDT Oxygen Saturation 98% 04/11/2025 11:03 AM EDT Inhaled Oxygen Concentration - - Weight 87.5 kg (193 lb) 04/11/2025 11:03 AM EDT Height 154.9 cm (5' 1 ) 04/11/2025 11:03 AM EDT Body Mass Index 36.47 04/11/2025 11:03 AM EDT Plan of Treatment Upcoming Encounters Date Type Department Care Team (Late st Contact Info) Description 07/12/2025 11:15 AM EST Office Visit [facility] [address] [place] [address] Brittney Graham MD [address] [place] [address] Health Maintenance Due Date Last Done Comments CT Colonography 1971 FIT DNA/Cologuard 1971 FIT 1971 FOBT 1970 HIV Screening 1970 Sigmoidoscopy 1970 Hepatitis C Screening 10/21/1989 COVID-19 Vaccine ( season) 2025 10/28/2023, 06/22/2021, 09/10/2020, Additional history exists Depression Monitoring 10/10/2025 04/11/2025, 025 Mammogram 11/14/2025 11/14/2024, 09/18, 09/15/2023, Additional history exists SDOH Screening 01/08/2026 01/08/2025 Alcohol/Substance Use Screening 01/18/2026 01/18/2025 Diabetes: Hemoglobin A1C 02/19/2026 025, 01/18/2025, 03/29/2024, Additional history exists Disability Screening 04/11/2026 04/11/2025 Tobacco Screening 04/11/2026 04/11/2025 Colonoscopy 04/12/2027 04/12/2022 Colorectal Cancer Screening 04/12/2027 [...] Completed 10/28/2023 Zoster Vaccines Completed 07/14/2024, 04/13/2024 Influenza Vaccine Completed 04/11/2025, , 03/12/2022, Additional history exists HIB Vaccines Aged Out [...] Procedure Name Priority Date/Time Associated Diagnosis Comments XR HIP 2 OR 3 VIEWS RIGHT Routine 04/18/2025 10:12 AM EDT Right hip pain CULTURE, URINE, ROUTINE Routine 04/02/2025 7:56 AM EDT HOMOCYSTEINE Routine 02/19/2025 1:25 PM EDT Burning [...] Routine 02/19/2025 12:31 PM EDT Burning sensation VASC US CAROTID ARTERY DUPLEX BILATERAL Routine 02/14/2025 8:28 AM EDT Lightheadedness Essential hypertension MR BRAIN WO CONTRAST Routine 01/24/2025 Meningioma, cerebral (CMS/HCC) POCT GLYCATED HEMOGLOBIN, TOTAL Routine 01/18/2025 12:37 PM EDT Prediabetes POCT GLUCOSE Routine 01/18/2025 12:37 PM EDT Prediabetes BI US BREAST LIMITED LEFT Routine 11/14/2024 11:00 AM EDT LIPID PANEL WITH REFLEX TO DIRECT LDL Routine 03/29/2024 9:50 AM EDT Essential hypertension IMAGE-GUIDED PAP W/AGE BASED SCR,W/CT/NG/TRICH Routine 10/29/2022 11:29 AM EDT Encounter for Papanicolaou smear for cervical cancer screening HM COLONOSCOPY Routine 04/12/2022 10:07 PM EDT from Last 3 Months or Most Recently Relevant to Health Maintenance Results * XR Hip 2 or 3 Views Right (04/18/2025 10:12 AM EDT) Anatomical Region Laterality Modality Lower Extremities, Hip Right Radiograp hic Imaging 04/18/2025 10:1 2 AM EDT Narrative 04/18/2025 10:24 AM EDT [place] [address] XRay Report Signed Patient: Laisha Ye I MR#: M [id number] : 1970 Acct:[id number] Age/Sex: 54 / F ADM Date: 04/18/25 Loc: HO.LIZAY Attending Dr: Olamide Stevens MD Ordering Physician: Olamide Chandler MD Date of Service: 04/18/25 Procedure(s): XR hip RT min 2V Accession Number(s): [id number] cc: Olamide Chandler MD Reason for Exam: pain after fall EXAMINATION: XR HIP 2 OR MORE VIEWS RIGHT HISTORY: pain after fall COMPARISON: There are no prior studies available for comparison. FINDINGS: Two views of the right hip are submitted. Osseous mineralization is normal. There is no fracture or dislocation. The joint space is maintained. The soft tissues are unremarkable. XR/XR hip RT min 2V IMPRESSION: Unremarkable examination of the right hip. Electronically signed by: Camilo Owens MD 04/18/2025 10:20 AM EDT RP Dictated By: Camilo Owens MD Signed By: <Electronically signed by Camilo Owens MD in OV> 04/18/25 1020 DD/ 1012 TD/TT: 04/18/25 1015 Cna Ltc: Procedure Note Donotuseinterpreter, Image - 04/18/[address] [address] XRay Report Signed Patient: Laisha Ye IMR#: M [id number] : 1970Acct:[id number] Age/Sex: 54 / FADM Date: 04/18/25 Loc: HO.XRAY Attending Dr: Olamide Stevens MD Ordering Physician: Olamide Chandler MD Date of Service: 04/18/25 Procedure(s): XR hip RT min 2V Accession Number(s): [id number] cc: Olamide Chandler MD Reason for Exam: pain after fall EXAMINATION: XR HIP 2 OR MORE VIEWS RIGHT HISTORY: pain after fall COMPARISON: There are no prior studies available for comparison. FINDINGS: Two views of the right hip are submitted. Osseous mineralization is normal. There is no fracture or dislocation. The joint space is maintained. The soft tissues are unremarkable. XR/XR hip RT min 2V IMPRESSION: Unremarkable examination of the right hip. Electronically signed by: Camilo Owens MD 04/18/2025 10:20 AM EDT RP Dictated By: Camilo Owens MD Signed By: <Electronically signed by Camilo Owens MD in OV> 04/18/25 1020 DD/ 1012 TD/TT: 04/18/25 1015 Cna Ltc: Olamide Stevens MD IMG XR PROCEDURES Harish johanna Result - Final * Culture, Urine, Routine (04/02/2025 7:56 AM EDT) Urine Urine specimen obtained by clean catch procedure / Unknown 04/02/2025 7:56 AM EDT 04/02/2025 5:24 PM EDT Comment:UACC Narrative [facility] - 04/04/2025 10:19 AM EDT Urine Culture Report Result Urine Culture 10,000 to 50,000 cfu/ml Urine Culture Mixed bacterial marge characteristic of Urine Culture urogenital contamination. Specimen Source: Urine clean catch us Generic External Data Provider LAB MICROBIOLOGY - GENERAL ORDERABLES Final Result Performing Organization Address [facility]/ZIP Co de Phone Number [facility] [address] [place] [address] [phone] * Homocysteine (02/19/2025 1:25 PM EDT) Homocysteine 9.8 < or = 13.4 umol/L [facility] Comment:Homocysteine is incr eased by functional deficiency offolate or vitamin B12. Testing for methylmalonic aciddifferentiates between these deficiencies. Other causesof increased homocysteine include renal failure, folateantagonists such as methotrexate and phenytoin, andexposure to nitrous oxide.Edis Muse, et al., [employer] Med. 1999;131(5):331-9.THIS TEST WAS PERFORMED AT:[facility] [place] [phone] MONDRAGON MD Blood Venous blood specimen / Unknown 02/19/2025 1:25 PM EDT 02/19/2025 1:25 PM EDT us Olamide Stevens MD LAB BLOOD ORDERABLES Final Result Performing Organization Address [facility]/ZIP Co de Phone Number [facility] [address] [place] [address] [phone] * Vitamin B12 (Cobalamin) and Folate Panel, Serum (02/19/2025 12:31 PM EDT) Vitamin B12 531 200 - 900 pg/mL [facility] Comment:NORMAL 200-900 PG/ML INDETERMINATE 160-199 PG/ML DEFICIENT < 160 PG/ML Folate 6.9 > or = 4.0 ng/mL [facility] Comment:Reference Values:> o r = [...] BLOOD ORDERABLES Final Result Performing Organization Address [facility]/ZIP Co de Phone Number [facility] [address] [place] [phone] * TSH with Reflex to Free T4 (02/19/2025 12:31 PM EDT) TSH reflex Free T4 0.52 0.32 - 4.0 uIU/mL [facility] Blood Venous blood specimen / Unknown 02/19/2025 12:31 PM EDT 02/19/2025 4:00 PM EDT us Olamide Stevens MD LAB BLOOD ORDERABLES Final Result Performing Organization Address [facility] Co de Phone Number [facility] [address] [place] [phone] * Lyme Disease Ab with Reflex to Blot (IgG, IgM) (02/19/2025 12:31 PM EDT) Lyme Antibody Screen <0.90 index [facility] Comment:Index Interpretation ----- < 0.90 Negative [...] when erythemamigrans is apparent.THIS TEST WAS PERFORMED AT:[facility] [place] [phone] MONDRAGON MD Lyme Blot TNP [facility] 02/19/2025 12:3 1 PM EDT 02/19/2025 4:00 PM EDT Olamide Stevens MD LAB BLOOD ORDERABLES Final Result [facility] [address] [place] [phone] * (ABNORMAL) CBC auto differential (02/19/2025 12:31 PM EDT) White Blood Count 10.4 4.8 - 10.8 X10*3/uL [facility] Red Blood Count 4.62 4.20 - 5.50 X10*6/uL [facility] Hemoglobin 13.2 12.0 - 16.0 g/dl [facility] Hematocrit 41.0 37.0 - 47.0 % [facility] Mean Corpuscular Volume 88.7 80.0 - 98.0 fL [facility] Mean Corpuscular Hemoglobin 28.6 27.0 - 33.0 pg [facility] Mean Corpuscular HGB Conc 32.2 31.0 - 35.0 g/dl [facility] Red Cell Distribution Width 12.4 11.0 - 16.0 % [facility] Platelet Count 326 160 - 400 X10*3/uL [facility] Mean Platelet Volume 10.3 9.4 - 12.3 fL [facility] Neutrophils Percent Auto 80.1(H) 45 - 73 % [facility] Imm Gran Pct Auto 0.5(H) 0.0 - 0.4 % [facility] Lymphocytes Percent Auto 13.5(L) 20 - 40 % [facility] Monocytes Percent Auto 5.1 2 - 11 % [facility] Eosinophils Percent Auto 0.2 0 - 4 % [facility] Basophils Percent Auto 0.6 0 - 2 % [facility] NRBC Pct Auto 0.0 0.0 - 0.2 /100WBC [facility] Neutrophils Absolute Auto 8.3 2.0 - 8.3 x10*3/uL [facility] Imm Gran Abs Auto 0.05(H) 0.00 - 0.03 X10*3/uL [facility] Lymphocytes Absolute Auto 1.4 1.2 - 4.9 X10*3/uL [facility] Monocytes Absolute Auto 0.5 0.1 - 1.2 X10*3/uL [facility] Eosinophils Absolute Auto 0.0 0.0 - 0.4 X10*3/uL [facility] Basophils Absolute Auto 0.1 0.0 - 0.2 X10*3/uL [facility] NRBC Abs Auto 0.000 0.0 - 0.012 X10*3/uL [facility] Blood Venous blood specimen / Unknown 02/19/2025 12:31 PM EDT 02/19/2025 4:10 PM EDT us Olamide Stevens MD LAB BLOOD ORDERABLES Final Result [facility] [address] [place] [phone] * Methylmalonic Acid (02/19/2025 12:31 PM EDT) Methylmalonic Acid 61 55 - 335 nmol/L [facility] Comment: Serum methylmalonic acid (MMA) levels [...] outcomes,such as neural tube defects and intrauterine growthrestriction.[employer] utilized Multi-Modal Decomposition(MMD) analysis to establish first and second trimester-specific MMA reference intervals in , as givenbelow:MMA, First trimester (<13 wks gestation): 58-167 nmol/LMMA, Second trimester (13-23 wks gestation):63-241 nmol/LThis test was developed and its analytical performancecharacteristics have been determined by [employer]. It has not been cleared or approved by theA. This assay has been validated pursuant to the CLIAregulations and is used for clinical purposes.THIS TEST WAS PERFORMED AT:[facility] [place] [phone] G LEWIS MD,PHD Blood Venous blood specimen / Unknown 02/19/2025 12:31 PM EDT 02/19/2025 4:00 PM EDT us Olamide Stevens MD LAB BLOOD ORDERABLES Final Result [facility] [address] [place] [phone] * RPR (Monitor) with Reflex to??Titer (02/19/2025 12:31 PM EDT) RPR (Monitor) w/Refl Titer NON-REACTI VE NON-REACT SHAHEEN [facility] Comment:THIS TEST WAS PERFOR MED AT:[facility] [address] [phone] MONDRAGON MD Rapid Plasma Reagin Ab Titer TNP [facility] Blood Venous blood specimen / Unknown 02/19/2025 12:31 PM EDT 02/19/2025 4:00 PM EDT us Olamide Stevens MD LAB BLOOD ORDERABLES Final Result Performing Organization Address [facility]/ZIP Co de Phone Number [facility] [address] [place] [phone] * Hemoglobin A1c (02/19/2025 12:31 PM EDT) Hemoglobin A1c 5.4 <6.0 % [facility] Comment:Hemoglobin A1C Refer ence Range Adults: 4.8 - 6.0 % Non diabetic: < 6.0 % Goal: < 7.0 %Additional Action Suggested: > 8.0 %Note: Hemoglobin A1c results are invalid for patients with abnormal amounts of HbF. Blood transfusions may impact the HbA1c concentration in the patient sample. Estimated Average Glucose 108 mg/dL [facility] Comment:eAG = Estimated ave rage glucose which is %A1C expressed asaverage glucose, using the formula of the Q9E-AbfdvvaYapivwp Glucose study (ADAG), Diabetes Care, Vol.31,#8,Jan. 2007 Blood Venous blood specimen / Unknown 02/19/2025 12:31 PM EDT 02/19/2025 4:10 PM EDT us Olamide Stevens MD LAB BLOOD ORDERABLES Final Result Performing Organization Address City/[facility]/ZIP Co de Phone Number [facility] [address] [place] [phone] * Comprehensive Metabolic Panel (02/19/2025 12:31 PM EDT) Sodium 140 135 - 145 mmol/L [facility] Potassium 3.7 3.3 - 5.1 mmol/L [facility] Chloride 103 96 - 108 mmol/L [facility] Carbon Dioxide 27 22 - 29 mmol/L [facility] Anion Gap 14 12 - 20 [facility] Urea Nitrogen (BUN) 13 9 - 16 mg/dL [facility] Creatinine, Serum 0.82 0.5 - 1.4 mg/dL [facility] Estimated Glomerular Filt Rate >60 [facility] Comment:Chronic Kidney Disea se: Estimated GFR < 60 mL/min/1.08i6Phbgwu Kidney Disease: Estimated GFR < 15 mL/min/1.73m2 Glucose 104 60 - 115 mg/dL [facility] Calcium 9.6 8.4 - 10.2 mg/dL [facility] Bilirubin, Total 0.4 0.0 - 1.0 mg/dL [facility] Aspartate Amino Transferase 23 5 - 31 U/L [facility] Alanine Aminotransferase 15 0 - 31 U/L [facility] Total Protein 8.0 6.5 - 8.0 g/dL [facility] Albumin Level 4.4 3.5 - 5.0 g/dL [facility] Alkaline Phosphatase 78 39 - 117 U/L [facility] Blood Venous blood specimen / Unknown 02/19/2025 12:31 PM EDT 02/19/2025 4:00 PM EDT us Olamide Stevens MD LAB BLOOD ORDERABLES Final Result [facility] [address] [place] [phone] * Vascular US carotid artery duplex bilateral (02/14/2025 8:28 AM EDT) 02/14/2025 8:28 AM EDT Narrative [facility] - 02/14/2025 8:29 AM EDT [address] [address] Ultrasound Report Signed Patient: Laisha Ye I MR#: M [id number] : 1970 Acct:[id number] Age/Sex: 54 / F ADM Date: 02/13/25 Loc: HO.US Attending Dr: Brittney Graham MD Ordering Physician: Brittney Graham MD Date of Service: 02/13/25 Procedure(s): US carotid duplex BI Accession Number(s): [id number] cc: Olamide Chandler MD; Brittney Graham MD [...] in OV> 02/14/[address] DD/ 7 TD/TT: 02/14/25827 Cna Ltc: Procedure Note Donotuseinterpreter, Image - 02/14/2025 [place] [address] Ultrasound Report Signed Patient: Laisha Ye IMR#: M [id number] : 1970Acct:[id number] Age/Sex: 54 / FADM Date: 02/13/25 Loc: . Attending Dr: Brittney Graham MD Ordering Physician: Brittney Graham MD Date of Service: 02/13/25 Procedure(s): US carotid duplex BI Accession Number(s): [id number] cc: Olamide Chandler MD; Brittney Graham MD [...] in OV> 02/14/[address] DD/ 7 TD/TT: 02/14/25827 Cna Ltc: Brittney Graham MD CV VASCULAR PROCEDURES F inal Result [facility] [address] [place] [phone] * MR Brain w/o Contrast (01/24/2025) Anatomical [...] TEST EN TER/EDIT ORDERABLES Final Result * BI US Breast Limited Left (11/14/2024 11:00 AM EDT) Anatomical Region Laterality Modality Breast Left Ultrasound 11/14/2024 11:0 0 AM EDT Narrative 11/14/2024 3:08 PM EDT [facility] [address] [place] [address] Ultrasound Report Signed Patient: Laisha Ye I MR#: M [id number] : 1970 Acct:[id number] Age/Sex: 54 / F ADM Date: 11/14/24 Loc: HO.MAMMO Attending Dr: Olamide Stevens MD Ordering Physician: Olamide Chandler MD Date of Service: 11/14/24 Procedure(s): US breast LT limited mamm only Accession Number(s): [id number] cc: Olamide Chandler MD EXAMINATION: MM DIAGNOSTIC [...] 11/14/24 1505 DD/ 1100 TD/TT: 11/14/24 1100 Cna Ltc: Procedure Note Donotuseinterpreter, Image - 11/14/2024 [facility] [address] [place] [address] Ultrasound Report Signed Patient: Laisha Ye IMR#: M [id number] : 1970Acct:[id number] Age/Sex: 54 / FADM Date: 11/14/24 Loc: HO.MAMMO Attending Dr: Olamide Stevens MD Ordering Physician: Olamide Chnadler MD Date of Service: 11/14/24 Procedure(s): US breast LT limited mamm only Accession Number(s): [id number] cc: Olamide Chandler MD EXAMINATION: MM DIAGNOSTIC [...] 11/14/24 1505 DD/ 1100 TD/TT: 11/14/24 1100 Cna Ltc: us Olamide Stevens MD IMG US PROCEDURES Fin al Result * (ABNORMAL) Lipid Panel with Reflex to Direct LDL (03/29/2024 9:50 AM EDT) Triglycerides 89 <150 mg/dL [facility] Comment:Desirable Triglyceri de: less than 150 mg/dLBorderline High Triglyceride 150-199 mg/dLHigh Triglyceride: 200-499 mg/dLVery High Triglyceride: greater than or equal to 5OO mg/dL Cholesterol 168 <200 mg/dL [facility] Comment:Desirable Cholestero l: less than 200 mg/dLBorderline High Cholesterol: 200-239 mg/dLHigh Cholesterol: greater than 239 mg/dL LDL Cholesterol Calculated 107(H) <100 mg/dL [facility] Comment:Desirable LDL: less than 100 mg/dLNear Optimal/Above Optimal LDL: 110- 129 mg/dLBorderline High LDL: 130-159 mg/dLHigh LDL: 160-189 mg/dLVery High LDL: greater than or equal to 190 mg/dL HDL Cholesterol 44 >40 mg/dL [facility] Comment:Desirable HDL: great er than 40 mg/dL Note: This HDL assay may give artificially low results in patients with liver disease. Blood 03/29/2024 9:50 AM EDT 03/29/2024 11:08 AM EDT Olamide Stevens MD LAB BLOOD ORDERABLES Final Result [facility] [address] [place] [address] [phone] * Image-Guided Pap with Age-Based Screening??with CT/NG,??Trichomonas (10/29/2022 11:29 AM EDT) Comment [email or web address] Comment: This order for age-based cervical cancer and STI screening follows ACOG guidelines(PB 168, 140, EPK401). See individual assays for performing site location. Clinical Information: 52 Y/O F NO PREVIOUS ABNORMALITY C [facility] LMP: NONE GIVEN [facility] Prev. PAP: NONE GIVEN [email or web address] Prev. BX: NONE GIVEN [facility] SOURCE: None given [facility] Statement Of Adequacy: [email or web address] Comment: Satisfactory for evaluation. Endocervical/transformation zone component absent. Interpretation/Re sult: Negative for intraepithelial lesion or malignancy. [email or web address] COMMENT: This Pap test has been evaluated with computer assisted technology. [facility] [place] [employer] Heater: Amalia Copiny Comment: EXJ, CT(ASCP) CT Screening Location: [address] [address] (Always Message) [facility] [employer] Comment: EXPLANATORY NOTE: The Pap is a [...] HPV nRNA E6/E7 Not Detected Not Detected [email or web address] Comment: Methodology: Commercial Accountant-Mediated Amplification This assay detects E6/E7 viral messenger RNA (mRNA) from 14 high-risk HPV types (16,18,31,33,35,39,45,51,52,56,58,59,66,68). Cervical sources are required for HPV testing. If a vaginal source from a patient who has had a total hysterectomy with removal of cervix was submitted, please contact the testing laboratory for alternative testing options. For additional information, please refer to http://Treatful.Franchise Fund/faq/LYP418x5 (This link if provided for information/ educational purposes only.) Chlamydia trachomatis RNA, TMA, Urogenital NOT DETECTED NOT DETECTED [email or web address] Neisseria gonorrhoeae RNA, TMA, Urogenital NOT DETECTED NOT DETECTED [facility] [place] [facility] Comment [facility] [place] [facility] Comment: The analytical performance characteristics of this assay, when used to test SurePath(TM) specimens have been determined by [facility]. The modifications have not been cleared or approved by the FDA. This assay has been validated pursuant to the CLIA regulations and is used for clinical purposes. For additional information, please refer to https://Staples/faq/PTH257 (This link is being provided for information/ educational purposes only.) Trichomonas vaginalis, QL, TMA, PAP Vial NOT DETECTED NOT DETECTED [email or web address] Comment: The analytical performance characteristics of this assay have been determined by [facility]. The modifications have not been cleared or approved by the FDA. This assay has been validated pursuant to the CLIA regulations and is used for clinical purposes. For additional information, please refer to http://Staples/ faq/Trichomonastma (This link is being provided for information/ educational purposes only.) Pap Vial 10/29/2022 11:2 9 AM EDT 10/31/2022 4:55 PM EDT Olamide Stevens MD LAB CYTOLOGY ORDERABL ES Final Result [facility] [address], [place] [address] [facility] [place] [facility] [address] [place] [address] * Hm Colonoscopy (04/12/2022 10:07 PM EDT) us Historical Provider HEALTH MAINTENANCE Final Result from Last 3 Months or Most Recently Relevant to Health Maintenance Insurance [facility] ONE CARE < 65 NADIR WALKER [id number] Care Teams Baseball Inspector And Repairer Relationship Specialty Start Date End Date Olamide Chandler MD [address] [place] [address] PCP - General Family Medicine 07/28/20
--- OUTSIDE RECORDS SUMMARY | 2025-04-18 11:44 | XMS_ITS | Data Portability ---
Author Organization [place] [facility], Allergy Address [address] [address] Care Team Providers Care Aircraft Maintenance Manager Name Role Phone PEGGY GILES Primary Care Provider Assessment Encounter Date Assessment Date Assessment LastModified by Organization Details LastModified Time 02/06/2025 02/06/2025 54 year old female, with a history of KARLA on CPAP therapy, presents for evaluation of dizziness. MRI of the brain done at [facility] on 01/25/25 to monitor a meningioma incidentally showed a small mucous retention cyst in the posterior maxillary antrum. Bilateral tympanic membranes are intact with well aerated middle ear spaces. No evidence of effusion or infection. Clinton-Hallpike was negative for nystagmus bilaterally, however she did endorse lightheadedness upon sitting upright. Patient also exhibited swaying with Romberg test. Fukuda marching test was positive for rotation to the right. We discussed that the patient's history and symptoms are not consistent with otologic pathology. Recommend following up with her senior design engineering specialist as her newly prescribed carvedilol may be [...] and Fukuda marching test 2024 025 [facility] Neurology Scheduling, [address] [facility], [place], [address], 5 11:37:36 Procedures None recorded. Surgeries None [...] Recorded Time Acute eczematoi d otitis externa 86393614 Active 2021 Acute eczematoi d otitis externa, bilateral ; Note: Date Diagnosed : 12/16/2021 9:33 AM (H60.543) Not Available [facility] 4 02:24:58 Dizziness and giddiness 585801139 Active 2023 Dizziness and giddiness ; Note: Date Diagnosed : 08/30/2023 1:50 PM (R42) Not Available [facility] 4 02:24:42 Impacted cerumen of bilateral ears 96495818071 14698 Active 2023 Impacted cerumen, bilateral ; Note: Date Diagnosed : 08/30/2023 1:50 PM (H61.23) Not Available [facility] 4 02:25:05 Lighthead edness 463074142 Active [address] [facility] [address], [place], [address] , [place] - [facility] 5 10:04:06 Intracran ial meningiom a 195670879 Active [address] [facility] [address], [place], [address] , [place] - [facility] [place] 5 10:22:49 Referred otalgia of right ear 90973940425 03155 Active [address] [facility] [address], [place], [address] , [facility] - [facility] 5 10:24:37 Obstructi ve sleep apnea syndrome 44462408 Active [address] [facility] [address], [place], [address] , [facility] - [facility] 5 10:31:44 Disorder of brain 92865556 Active [address] [facility] [address], [place], [address] , [facility] - [facility] [place] 20:28:53 Problem Notes None recorded. Medical Equipment None Reported. Allergies Allergen ID Allergen Name Allergen Category Reaction Reaction Severity Criticality Documentation Date Start Date Code Code System Note Provider Name and Address Organization Details Recorded Time 95587 Prozac medicatio n other Not available Not available 11/01/2023 20080 RxNorm React ion: other react ion, Unkno wn; Not Available [facility] 4 00:57:12 43108 Tums medicatio n other Not available Not available 11/01/2023 21125 8 RxNorm React ion: other react ion, Unkno wn; Not Available [facility] 4 00:57:23 Medications Name Sig Start Date [...] mg tablet 08/29 completed Medicati on ID: [id number] B rand Name: trazodon e Send Method: E-Prescr ibed Sub s Allowed: subs OK Medic ationGen ericName : trazodon e Not Available Not Available Not Available citalopra m 10 mg tablet TAKE 1 TABLET BY MOUTH DAILY IN ADDITION TO 20 MG TABLET active Not Available Not Available No t Available sucralfat e 1 gram tablet 08/29 completed Medicati on ID: 036422 B rand Name: sucralfa te Send Method: E-Prescr ibed Sub s Allowed: subs OK Medic ationGen ericName : sucralfa te Not Available Not Available Not Available Excedrin Migraine 250 mg-250 mg-65 mg tablet 08/29 completed Medicati on ID: 766470 B rand Name: Excedrin Migraine Send Method: E-Prescr ibed Sub s Allowed: subs OK Medic ationGen ericName : Excedrin Migraine Not Available Not Available Not Available acetamino phen 500 mg tablet 08/29 completed Medicati on ID: 543733 B rand Name: acetamin ophen Se nd [...] mg capsule 08/29 completed Medicati on ID: [id number] B rand Name: Macrobid Send Method: E-Prescr [...] mg tablet 08/29 completed Medicati on ID: [id number] B rand Name: amitript yline Se nd Method: E-Prescr ibed Sub s Allowed: subs OK Medic ationGen ericName : amitript yline Not Available Not Available Not Available meclizine 25 mg tablet active Medicati on ID: 482777 B rand Name: meclizin e Send Method: E-Prescr ibed Sub s Allowed: subs OK Medic ationGen ericName : meclizin e Not Available Not Available Not Available baclofen 10 mg tablet 08/29 completed Medicati on ID: 296358 B rand Name: baclofen Send Method: E-Prescr ibed Sub s Allowed: subs OK Medic ationGen ericName : baclofen Not Available Not Available Not Available amlodipin e 10 mg tablet 02/06 completed Medicati on ID: 350452 B rand Name: amlodipi ne Send Method: E-Prescr ibed Sub s Allowed: subs OK Medic ationGen ericName : amlodipi ne Not Available Not Available Not Available tacrolimu s 0.1 % topical ointment APPLY TOPICALL Y TO FACE TWICE DAILY NEEDED FOR FLARES active Not Available Not Available No t Available lisinopri l 10 mg tablet 02/06 completed Medicati on ID: [id number] B rand Name: lisinopr il Send Method: E-Prescr ibed Sub s Allowed: subs OK Medic ationGen ericName : lisinopr il Not Available Not Available Not Available losartan 25 mg tablet 02/06 completed Medicati on ID: 119301 B rand Name: losartan Send Method: E-Prescr [...] mg tablet 08/29 completed Medicati on ID: [id number] B rand Name: monteluk ast Send Method: E-Prescr ibed Sub s Allowed: subs OK Medic ationGen ericName : monteluk ast Not Available Not Available Not Available fluticaso ne 100 mcg-salme terol 50 mcg/dose blistr powdr for inhalatio n 08/29 completed Medicati on ID: 613838 B rand Name: fluticas one propion- salmeter ol Send Method: E-Prescr ibed Sub s Allowed: subs OK Medic ationGen ericName : fluticas one propion- salmeter ol Not Available Not Available Not Available polyethyl tejas glycol 3350 17 gram/dose oral powder 08/29 completed Medicati on ID: 554833 B rand Name: polyethy jermaine glycol 3350 Sen d Method: E-Prescr ibed Sub s Allowed: subs OK Medic ationGen ericName : polyethy jermaine glycol 3350 Not Available Not Available Not Available albuterol sulfate HFA 90 mcg/actua tion aerosol inhaler 08/29 completed Medicati on ID: 591848 B rand Name: albutero l sulfate Send [...] %) nasal spray active Medicati on ID: 434098 B rand Name: ipratrop ium bromide Send Method: E-Prescr ibed Sub s Allowed: subs OK Medic ationGen ericName : ipratrop ium bromide Not Available Not Available Not Available loratadin e 10 mg tablet 08/29 completed Medicati on ID: [id number] B rand Name: loratadi ne Send Method: [...] as directed 08/29 completed Medicati on ID: [id number] P josefribe d By Name: Rupinder Levine [...] Updated DateTime 02/06/2025 154.94 cm 34.8 kg/m2 76135 g Conchita Ford [place] - [facility] 02/06/2025 09:38:08 Social History None recorded. Functional Status None recorded. Mental Status None recorded. Family History Nothing Reported. Medical History No medical history recorded. Gynecological HistoryNo gynecological history recorded. Obstetrics History GPAL:G 0 P 0 0 0 0 Past Encounters Encounter ID Performer Location Encounter Start Date Encounter Closed Date Diagnosis/Indication Diagnosis SNOMED-CT Code Diagnosis ICD10 Code Diagnosis IMO Codes Diagnosis Note [id number] NADIR MEZA [facility] of [address] [address] 02/06/2025 09:28:44 02/06/2025 10:09:14 Lightheadedness 959556104 R42 76210 Intracrani al meningioma 752575971 D32.0 194420 Referred o talgia of right ear 4349407245 169061 H92.01 M26.621 M79.11 The patient complains of [...] considered . Obstructiv e sleep apnea syndrome 57281338 G47.33 5425855 Patient is unsure if her current pressure settings are causing her throat discomfort . She will follow up with her sleep medicine provider to discuss if this can be adjusted. Disorder of brain 494413 09 G93.40 1129331 Health Concerns Section Related Observation LastModified by Organization Detai ls LastModified Time None Recorded Concern Status LastModified by Organization Details LastModified Time None Recorded Advance Directives Directive None Recorded Payers Insurance Date Sequence Insurance Name Policy Number Policy Downey Covered Member ID Downey Member ID Guarantor Name 02/06/[address] [facility] - DOS ON OR AFTER 2022 - ONE CARE (MEDICARE REPLACEMENT/ADV ANTAGE - HMO) Laisha Riggins [id number] Laisha Riggins Notes Date Note Type Note [...] physician. MRI of the brain done at [facility] on 01/25/25 incidentally showed a small [...] This is being managed by her senior design engineering specialist. MARISOL JESUS MD [address] [place] [address], [phone], [facility] - [facility] 02/07/2025 12:30:48 OBGyn Episode No OBEpisode recorded.
--- OUTSIDE RECORDS SUMMARY | 2025-04-18 11:44 | XMS_ITS | Encounter Summary ---
Author Organization [employer] Address [address] [facility] 7t [place] [address] Care Team Providers Care Mechanical Engineering Advisor Name Role Phone Olamide Chandler MD Primary Care Provide r Encounter Details Date Type Department Care Team ([facility] Contact Info) Description 08/18/2022 Telephone [facility] [address] [place], [place] [phone] Olamide Chandler MD [address] [place], [place] [phone] Social History Tobacco Use Types Packs/Day Years [...] Department Care Team (Late Contact Info) Description 07/12/2025 11:15 AM EST Office Visit [facility] [address] [place] [address] Brittney Graham MD [address] [place] [address] documented as of this encounter Visit Diagnoses Not on filedocumented in this encounter Care Teams Mechanical Engineering Advisor Relationship Specialty Start Date End Date Olamide Chandler MD [address] [place] [address] PCP - General Family Medicine 07/28/20 documented as of this encounter
--- OUTSIDE RECORDS SUMMARY | 2025-04-18 11:44 | XMS_ITS | Encounter Summary ---
Author Organization [employer] Address [address] [facility] 7 [place] [address] Care Team Providers Care Lower School Music Teacher Name Role Phone Olamide Chandler MD Primary Care Provide r Reason for Visit * Reason Onset Date Comments Med Refill 12/04/2024 Encounter Details Date Type Department Care Team ([facility] st Contact Info) Description 12/04/2024 Telephone [facility] [address] [place], [place] [phone] Olamide Chandler MD [address] [place], [place] [phone] Med Refill Social History Tobacco Use Types [...] Please review and resubmit Contact pt at [phone] Need classer * Telephone Encounter - Bea Escobar LPN - 12/04/2024 2:48 PM EDT Medication was sent to [facility] #[id number] today. * Telephone Encounter - Joselyn Boyer - 12/04/2024 2:46 PM EDT TC from pt requesting medication refill. Medications needing refill : Zepbound 2.5 MG/0.5ML solution auto-injector To be sent to: [id number] - [place] [address] [facility] signed by Joselyn Boyer at 12/04/2024 2:46 PM EDT documented in this encounter Plan of Treatment Upcoming Encounters Date Type Department Care Team (Late st Contact Info) Description 07/12/2025 11:15 AM EST Office Visit [facility] [address] [place] [address] Brittney Graham MD [address] [place], [place] [phone] documented as of this encounter Visit Diagnoses Not on filedocumented in this encounter Additional Health Concerns Assessment Noted Time PHQ-9 Depression Total Score: 25 024 9:17 AM EDT documented as of this encounter Care Teams Lower School Music Teacher Relationship Specialty Start Date End Date Olamide Chandler MD [address] [place] [phone] PCP - General Family Medicine 07/28/20 documented as of this encounter
--- OUTSIDE RECORDS SUMMARY | 2025-04-18 11:44 | XMS_ITS | Encounter Summary ---
Author Organization [employer] Address [address] [facility] 7 [place] [address] Care Team Providers Care Revenue Cycle Administrator Name Role Phone Olamide Chandler MD Primary Care Provide r Reason for Visit * Reason Onset Date Comments Pre-visit Planning 03/02/2024 Encounter Details Date Type Department Care Team ([facility] st Contact Info) Description 03/02/2024 Telephone [facility] [address] [place], [place] [phone] Olamide Chandler MD [address] [place], [place] [phone] Pre-visit Planning Social History Tobacco Use Types [...] Description 07/12/2025 11:15 AM EST Office Visit [facility] [address] [place] [address] Brittney Graham MD [address] [place] [address] documented as of this encounter Visit Diagnoses Not on filedocumented in this encounter Additional Health Concerns Assessment Noted Time PHQ-9 Depression Total Score: 18 024 9:06 AM EST documented as of this encounter Care Teams Revenue Cycle Administrator Relationship Specialty Start Date End Date Olamide Chandler MD [address] [place] [address] PCP - General Family Medicine 07/28/20 documented as of this encounter
--- OUTSIDE RECORDS SUMMARY | 2025-04-18 11:44 | XMS_ITS | Encounter Summary ---
Author Organization [employer] Address [address] [facility] 7t [place] [address] Care Team Providers Care Field Auditor Name Role Phone Olamide Chandler MD Primary Care Provide r Encounter Details Date Type Department Care Team (Late Contact Info) Description 09/01/2022 Orders Only [facility] [address] [place] [phone] Renée Okeefe [place] Social History Tobacco Use [...] Description 07/12/2025 11:15 AM EST Office Visit [facility] [address] [place] [address] Brittney Graham MD [address] [place] [address] documented as of this encounter Procedures Procedure [...] [facility] Specific Ebro - Urine <=1.005 1.005 - 1.025 [facility] Urine Protein Negative Neg-Trace mg/dL [facility] Urine Ketones Negative Negative mg/dL [facility] Nitrite Urine Negative Negative [facility] Leukocyte Esterase Urine Trace(A) Negative [facility] RBC Urine 0-2 0 - 2 /HPF [facility] Urine WBC 0-5 0 - 5 /HPF [facility] Urine Squamous Epithelial Cell 0-2 0 - 2 /HPF [facility] Urine Bacteria None Seen None Seen [facility] Hyaline Casts, Urine 0-2 0 - 2 /LPF [facility] 04/17/2023 1:20 AM EDT 04/17/2023 1:23 AM EDT Narrative [facility] - 04/17/2023 1:42 AM EDT [id number], Clean Catch us [facility] External Provider LAB URI NE ORDERABLES Final Result Performing Organization Address [facility]/ZIP Co de Phone Number [facility] [address] [place] [address] [phone] * B Type Natriuretic Peptide (BNP) [...] 6 AM EDT 04/17/2023 12:53 AM EDT [facility] External Provider LAB BLO OD ORDERABLES Final Result Performing Organization Address [facility] Co de Phone Number [facility] [address] [place] [address] [phone] * BI Mammogram Screening Tomosynthesis Bilateral (09/09/2022 8:30 AM EDT) Anatomical Region Laterality Modality Breast Bilateral Mammography 09/09/2022 8:30 AM EDT Narrative 09/10/2022 11:56 AM EDT [facility] [address] [place] [address] Mammography Report Signed Patient: Laisha Ye I MR#: [id number] : 1970 Acct:[id number] Age/Sex: 51 / F ADM Date: 09/09/22 Loc: HO.MAMMO Attending Dr: Olamide Stevens MD Ordering Physician: Olamide Chandler MD Results: 1Negative Date of Service: 09/09/22 Follow Up: 1 Year From Orig inal Mammogram Procedure(s): MM tomosynthesis screening BI Accession Number(s): [id number] cc: Olamide Chandler MD EXAMINATION: MM SCREENING [...] in OV> 09/10/22 1153 DD/ 0830 TD/TT: Wet End Supervisor: SK Procedure Note Donotuseinterpreter, Image - 09/10/2022 [facility] [address] [place], [place] [address] Mammography Report Signed Patient: Laisha Ye IMR#: [id number] : 1970Acct:[id number] Age/Sex: 51 / FADM Date: 09/09/22 Loc: HO.MAMMO Attending Dr: Olamide Stevens MD Ordering Physician: Olamide Chandler MDResults: 1Negative Date of Service: 09/09/22Follow Up: 1 Year From Orig inal Mammogram Procedure(s): MM tomosynthesis screening BI Accession Number(s): [id number] cc: Olamide Chandler MD EXAMINATION: MM SCREENING [...] in OV> 09/10/22 1153 DD/ 0830 TD/TT: Wet End Supervisor: SAURAV [facility] External Provider IMG BI PROCEDURES Edited Result - Final documented in this encounter Visit Diagnoses Not on filedocumented in this encounter Care Teams Field Auditor Relationship Specialty Start Date End Date Olamide Chandler MD [address] [place] [phone] PCP - General Family Medicine 07/28/20 documented as of this encounter
--- OUTSIDE RECORDS SUMMARY | 2025-04-18 11:44 | XMS_ITS | Encounter Summary ---
Author Organization [employer] Address [address] [facility] 7 [place] [address] Care Team Providers Care Director Of Primary Care Name Role Phone Olamide Chandler MD Primary Care Provide r Reason for Visit * Reason Onset Date Comments Med Refill 01/07/2025 Encounter Details Date Type Department Care Team ([facility] st Contact Info) Description 01/07/2025 Telephone [facility] [address] [place], [place] [phone] Olamide Chandler MD [address] [place], [place] [phone] Med Refill Social History Tobacco Use Types [...] MG/0.5ML solution auto-injector [facility] to: [id number] - [place], [place] - [address] [place] [address] AT [facility] documented in this encounter Plan of Treatment Upcoming Encounters Date Type Department Care Team ([facility] st Contact Info) Description 07/12/2025 11:15 AM EST Office Visit [facility] [address] [place] [phone] Brittney Graham MD [address] [place] [address] documented as of this encounter Visit Diagnoses Diagnosis Class 3 severe obesity due to excess calories with serious comorbidity and body mass index (BMI) of 45.0 to 49.9 in adult (HCC) documented in this encounter Additional Health Concerns Assessment Noted Time PHQ-9 Depression Total Score: 25 024 9:17 AM EDT documented as of this encounter Care Teams Director Of Primary Care Relationship Specialty Start Date End Date Olamide Chandler MD [address] [place] [address] PCP - General Family Medicine 07/28/20 documented as of this encounter
--- OUTSIDE RECORDS SUMMARY | 2025-04-18 11:45 | XMS_ITS | Encounter Summary ---
Author Organization [employer] Address 75 [facility] 7t [place] [address] Care Team Providers Care Grid Operator Name Role Phone Olamide Chandler MD Primary Care Provide r Reason for Visit * Reason Comments Med Refill Encounter Details Date Type Department Care Team ([facility] st Contact Info) Description 04/13/2025 Refill [facility] MEDICINE [address] [place], [place] [phone] Olamide Chandler MD [address] [place], [place] [phone] Gastroesophageal reflux disease, unspecified whether esophagitis present Social History Tobacco Use Types Packs/Day Years [...] Description 07/12/2025 11:15 AM EST Office Visit [facility] MEDICINE [address] [place] [phone] Brittney Graham MD [address] [place] [phone] documented as of this encounter Visit Diagnoses Diagnosis Gastroesophageal reflux disease, unspecified whether esophagitis present documented in this encounter Additional Health Concerns Assessment Noted Time PHQ-9 Depression Total Score: 23 025 11:29 AM EDT documented as of this encounter Care Teams Grid Operator Relationship Specialty Start Date End Date Olamide Chandler MD [address] [place] [phone] PCP - General Family Medicine 07/28/20 documented as of this encounter
--- OUTSIDE RECORDS SUMMARY | 2025-04-18 11:45 | XMS_ITS | Encounter Summary ---
Author Organization [employer] Address 75 [facility] 7t [place] [address] Care Team Providers Care Regional Education Manager Name Role Phone Olamide Chandler MD Primary Care Provide r Encounter Details Date Type Department Care Team ([facility] st Contact Info) Description 03/07/2025 Telephone [facility] MEDICINE [address] [place], [place] [phone] Olamide Chandler MD [address] [place], [place] [phone] Social History Tobacco Use Types Packs/Day Years [...] Description 07/12/2025 11:15 AM EST Office Visit [facility] MEDICINE [address] [place] [address] Brittney Graham MD [address] [place] [address] documented as of this encounter Visit Diagnoses Not on filedocumented in this encounter Additional Health Concerns Assessment Noted Time PHQ-9 Depression Total Score: 25 024 9:17 AM EDT documented as of this encounter Care Teams Regional Education Manager Relationship Specialty Start Date End Date Olamide Chandler MD [address] [place] [address] PCP - General Family Medicine 07/28/20 documented as of this encounter
--- OUTSIDE RECORDS SUMMARY | 2025-04-18 11:45 | XMS_ITS | Encounter Summary ---
Author Organization [facility] Address [address] [place] [address] Phone Care Team Providers Care Belt Sander Name Role Phone Olamide Chandler MD Primary Care Provide r Encounter Details Date Type Department Care Team (Late st Contact Info) Description 12/31/2024 Documentation Only [facility] [address] [place] [address] Mahendra Medel DO [address] [facility] [place] [address] Social History Tobacco Use Types [...] Visit [facility] [address] [place] [address] Mahendra Medel DO [address] [facility] [place] [address] documented as of this encounter [...] Creatinine, Ur 40.8 Not Estab. mg/dL [facility] Albumin, Urine <3.0 Not Estab. ug/mL [facility] Albumin/Creatin ine Ratio <7 0 - 29 mg/g creat [facility] Comment: Normal: 0 - 29 Moderately increased: 30 - 300 Severely increased: >300 Urine Urine specimen obtained by clean catch procedure / Unknown 01/01/2025 9:37 AM EDT 01/01/2025 us Mahendra Medel DO LAB URINE ORDERABLES Final Resu lt [facility] [address] [place] [address] * (ABNORMAL) Renal function panel (01/01/2025 9:37 AM EDT) Glucose 105(H) 70 - 99 mg/dL [facility] BUN 10 6 - 24 mg/dL [facility] Creatinine 0.82 0.57 - 1.00 mg/dL [facility] eGFR CKD-EPI CR 2020 85 >59 mL/min/1.7 3 [facility] BUN/Creatinine Ratio 12 9 - 23 [facility] Sodium 138 134 - 144 mmol/L [facility] Potassium 4.4 3.5 - 5.2 mmol/L [facility] Chloride 101 96 - 106 mmol/L [facility] Bicarbonate (CO2) 22 20 - 29 mmol/L [facility] Calcium 9.1 8.7 - 10.2 mg/dL [facility] Albumin 4.1 3.8 - 4.9 g/dL [facility] Phosphorus 3.1 3.0 - 4.3 mg/dL [facility] Blood Venous blood / Unknown 01/01/2025 9:37 AM EDT 01/01/2025 us Mahendra Medel DO LAB BLOOD ORDERABLES Final Resu lt [facility] [address] [place] [address] documented in this encounter Visit Diagnoses Diagnosis Chronic kidney disease, stage 2 (mild)- Primary 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
--- OUTSIDE RECORDS SUMMARY | 2025-04-18 11:45 | XMS_ITS | Encounter Summary ---
Author Organization [facility] Address [address] [place] [address] Phone Care Team Providers Care Supervisor Instant Potato Processing Name Role Phone Olamide Chandler MD Primary Care Provide r Encounter Details Date Type Department Care Team (Late st Contact Info) Description 01/07/2025 Documentation Only [facility] [address] [place] [address] Alisha Brcieno [address] [place] [phone] Social History Tobacco Use Types Packs/Day Years [...] Visit [facility] [address] [place] [phone] Mahendra Medel DO [address] [place] [address] [place] [phone] documented as of this encounter Visit Diagnoses Not on filedocumented in this encounter Care Teams Supervisor Instant Potato Processing Relationship Specialty Start Date End Date Olamide Chandler MD [address] [place] [phone] PCP - General Internal Medicine 10/27/23 documented as of this encounter
--- OUTSIDE RECORDS SUMMARY | 2025-04-18 11:45 | XMS_ITS | Encounter Summary ---
Author Organization [employer] Address [address] [facility] 7t [place] [address] Care Team Providers Care Shop Firer/Fireman Name Role Phone Olamide Chandler MD Primary Care Provide r Encounter Details Date Type Department Care Team ([facility] st Contact Info) Description 02/20/2025 Results Follow-Up [facility] MEDICINE [address] [place], [place] [phone] Brittney Graham MD [address] [place], [place] [phone] Vascular US carotid artery duplex bilateral Social [...] 11:15 AM EST Office Visit [facility] MEDICINE [address] [place] [address] Brittney Graham MD [address] [place] [address] documented as of this encounter Visit Diagnoses Not on filedocumented in this encounter Additional Health Concerns Assessment Noted Time PHQ-9 Depression Total Score: 25 024 9:17 AM EDT documented as of this encounter Care Teams Shop Firer/Fireman Relationship Specialty Start Date End Date Olamide Chandler MD [address] [place] [phone] PCP - General Family Medicine 07/28/20 documented as of this encounter
--- OUTSIDE RECORDS SUMMARY | 2025-04-18 11:45 | XMS_ITS | Data Portability ---
Author Organization [employer] Address [address] [place] [phone] Care Team Providers Care Sewing Demonstrator Name Role Phone Unavailable Referring Provider HIM CCA OTHER Assessment Encounter Date Assessment Date Assessment LastModified by Organization Details LastModified Time 01/28/2023 01/28/2023 I have reviewed and agree with the assessment and plan as documented by the gluing machine offbearer. I provided real time medical direction for this encounter and was immediately available to provide additional phone based assistance as needed. History as noted by gluing machine offbearer. Pt with history of OA of the knees but over the last few months she has noted pain in multiple other joints particularly her shoulders and neck. No falls or trauma. No fevers or chills or know tick exposures. She reports that she saw her geoscience technician several months ago and that they were [...] process. Labs are obtained and sent to [facility] labs for CBC w/diff, ESR, CRP [...] results of the labs sent to the [facility] lab today. Pt instructed to seek medical attention right away with any worsening or new symptoms, which are reviewed with her. [email or web address] Not available 01/28/2023 15:58:43 Plan of Treatment Reminders Order Date Submit Date Provider Last Modified By Organization Details Last Modified Time Details Appointments None recorded. Lab BMP, serum or plasma 2024 025 WERO Gilberto [facility], [address] [place] [address], [place], [phone] 5 08:19:04 CBC w/ auto diff 2022 023 WERO [facility] (Centralized Electronic Ordering - All Locations), Patient Can Go To The Location Of Their Choice, [facility] 3 01:41:38 ESR (erythrocyt e sedimentati on rate), blood 2022 023 WERO [facility] (Centralized Electronic Ordering - All Locations), Patient Can Go To The Location Of Their Choice, [facility] 3 01:48:53 C-reactive protein, quantitativ e, serum or plasma 2022 023 WERO [facility] (Centralized Electronic Ordering - All Locations), Patient Can Go To The Location Of Their Choice, [facility] 3 02:16:13 unlisted lab - lyme disease antibody w/reflex west blot 2022 023 WERO [facility] (Centralized Electronic Ordering - All Locations), Patient Can Go To The Location Of Their Choice, [facility] 3 09:18:28 Referral None recorded. Procedures None recorded. Surgeries None recorded. Imaging None recorded. Medication Orders lactated Ringers intravenous solution 2024 025 [id number], [address] [place] [address], [id number], 5 18:05:45 potassium chloride ER 20 mEq tablet,exte nded release 2024 025 [id number], [address] [place] [address], [id number], 5 18:05:45 diclofenac 1 % topical gel 2022 023 [facility], [address] [place] [address], [id number], 15:52:21 Patient TargetsNo targets recorded. Patient InstructionsNo [...] 01:41:38 01/29/2001/29/2023 COMPL ETE CBC WITH DIFF imm gran 0.1 % Not Available [facility] (Centralized Electronic Ordering - All Locations) Patient Can Go To The Location Of Their Choice, 01/29/2023 01:41:38 01/29/2001/29/2023 SEDIM ENTAT ION RATE, AUTOM ATED sedimentatio n rate,automat ed 47 mm/HR (0-20) high Not Available [facility] (Centralized Electronic Ordering - All Locations) Patient Can Go To The Location Of Their Choice, 01/29/2023 01:48:48 01/29/2001/29/2023 C-CYNDI CTIVE PROTE IN C-reactive protein 1.4 mg/dL (0-0.5 ) high Not Available [facility] (Centralized Electronic Ordering - All Locations) Patient Can Go To The Location Of Their Choice, 01/29/2023 02:16:13 01/29/2001/30/2023 LYME AB W/REF SANDY [...] . Testi ng perfo rmed by the [employer] ex 2200 multi plex flow immun oassa y syste m Not Available [facility] (Centralized Electronic Ordering - All Locations) Patient Can Go To The Location Of Their Choice, 2023 09:18:28 Result Notes None recorded. Medical Equipment None Reported. Allergies Allergen ID Allergen Name Allergen Category Reaction Reaction Severity Criticality Documentation Date Start Date Code Code System Note Provider Name and Address Organization Details Recorded Time 22752 calcium medicatio n Not available Not available Not available 09/19/2024 1895 RxNorm Not Available [employer] - production 15:31:46 98321 fluoxetin e medicatio n Not available Not available Not available 09/19/2024 4493 RxNorm Not Available 20x200[employer] - production 15:31:46 85111 lisinopri l medicatio n Not available Not available Not available 09/19/2024 30804 RxNorm Not Available [email or web address] - production 15:31:46 62082 sumatript an medicatio n Not available Not available Not available 09/19/2024 93275 RxNorm Not Available [email or web address] - production 5 15:31:46 Medications Name Sig Start Date Stop [...] Available Not Available No t Available Nasal [place] (sodium chloride) 0.65 % aerosol USE 1 [...] Address Organization Details Last Updated DateTime 5 02035.4 g 1 /min 98 [degF] 157.48 cm 93 /min 96 % 96 % 141/87 mm[Hg] Not Available [employer] - production 5 17:24:24 Date Recorded Heart rate Body temperature Oxygen saturation Oxygen saturation in Arterial blood by Pulse oximetry Body weight Body height Respiratory rate Systolic And Diastolic Provider Name and Address Organization Details Last Updated DateTime 3 78 /min 97.7 [degF] 98 % 98 % 58475.2 4 g 154.94 cm 18 /min 117/80 mm[Hg] Not Available [employer] - [employer] 3 15:43:00 Social History None recorded. Functional Status None recorded. Mental Status None recorded. Family History Nothing Reported. Medical History No medical history recorded. Gynecological HistoryNo gynecological history recorded. Obstetrics History GPAL:G 0 P 0 0 0 0 Past Encounters Encounter ID Performer Location Encounter Start Date Encounter Closed Date Diagnosis/Indication Diagnosis SNOMED-CT Code Diagnosis ICD10 Code Diagnosis IMO Codes Diagnosis Note [id number] Rik Dhillon MD Main - [address] [phone] 01/28/2023 15:42:58 02/01/2023 14:13:30 Pain of multiple joints 65562907 M25.50 [id number] [facility]ED [facility]ER [facility] [address] [place] [phone] 09/19/2024 17:18:08 09/20/2024 10:09:53 Diarrhea 59535894 R19.7 Evaluation in the field was performed by my gluing machine offbearer colleague, as noted above, I provided real-time [...] Downey Member ID Guarantor Name 10/12/[address] [facility] - DOS ON OR AFTER 2022 - DUAL ELIGIBLE - [employer] OPTIONS AND ONE CARE (MEDICARE REPLACEMENT/ADV ANTAGE - HMO) Laisha Riggins [id number] Laisha Riggins Notes Date Note Type Note Provider Name and Address Organization Details Recorded Time 01/28/2023 text/html ROS as noted in the HPI This was a supervised home visit with gluing machine offbearer Neisha Copeland. HPI: Call to Laisha Dan, [...] ...................... ...................... ...................... ...................... ...................... ...................... ......... Fixed Wing Aircraft Crew Chief Note From Neisha Copeland: Sent to a [...] resolve on their own. Pt has a geoscience technician and was seen approx 4 months ago. [...] noted (pt states this is baseline); Skin: [place], warm, dry; Rapid covid test: neg; [facility] consulted and orders bloodwork to be taken to [place] lab. sends script to pt's pharmacy for Diclofenac gel. [facility] Venous blood draw performed, and blood samples obtained to take to [facility] lab. Red flags discussed. Pt has no further questions. ...................... ...................... ...................... ...................... ...................... ...................... ......... Disposition: Fulfilled Rik Dhillon MD [address] [facility],[address], [place], [address], [employer] 01/28/2023 16:56:47 09/19/2024 text/html ROS as noted in the HPI HPI: HX: Renal Agenesis, cerebral meningioma.Patient with 6 stools today following [employer] [facility] [employer] yesterday. Is on Senna for constipation and Sepbound for weight loss. Allergies Calcium Carbonate Drug Ingredient Not Specified A llergy Other reaction(s): HivesLisinopril Drug Ingredient Not Specified 10/28/2023Soybean Oil Drug Ingredient Not Specified A llergy umatriptan Drug Ingredient Not Specified A llergy Cinnamon Drug Ingredient R ignacio L ow A llergy 1 08/09/2009Other reaction(s): throat tightFluoxetine ..................... ...................... ...................... ...................... ...................... ...................... .......... [facility] Nurse Triage Notes (Kamryn Garcia): Chief Complaints: Diarrhea PMH: COPD/Asthma, Hypertension, Asthma, Gastroesophageal Reflux Disease (GERD) PMH Reviewed at 09/19/2024 - 15:31 Allergies Reviewed at 09/19/2024 - 15:31 Comments: HPI reviewed Fixed Wing Aircraft Crew Chief Organization Information for Michael Sanchez Rere Legal Name: [facility] Transportation Address: [address] [place] [address], [place] [address], Powerhouse Electrician: Zeferino Burton MD CLIA No.: [id number] [employer] Crew Chief POC Test Results from Michael Sanchez Virgil GUPTA [facility] (17:48:47) pH: 7.398 pH units pCO2: 46.2 mmHg pO2: 26.7 mmHg Na: 140 mmol/L K: 3.5 mmol/L iCa: 1.17 mmol/L Cl: 103 mmol/L TCO2: 27.7 mEq/L Hct: 41 % Hb: 13.8 g/dL Glu: 111 mg/dL Lac: 0.80 mmol/L Cr: 0.80 mg/dL BUN: 13 mg/dL A mmol/L HCO3: 28.5 mmol/L ...................... ...................... ...................... ...................... ...................... ...................... ......... Fixed Wing Aircraft Crew Chief Note From Michael Sanchez: Patient alert and [...] increase work of breathing positive full sentences. [facility] orders EPO data, LR1L IV now, potassium 40 MEQ PO now and to follow up with PCP. Medication administered as ordered without complication using five rights. Patient reports relief of headache after fluid administration. Red flags patient education discussed. [facility] Lab Orders: BMP, serum or plasma: Performed [facility] Medication Orders: lactated Ringers intravenous solution: Administered potassium chloride ER 20 mEq tablet,extended release: Administered ...................... ...................... ...................... ...................... ...................... ...................... ......... [facility] Consulted: Jed Yeager ...................... ...................... ...................... ...................... ...................... ...................... ......... Disposition: Fulfilled JED YEAGER MD [address] [facility],[address], [place], [phone], [employer], [facility] 09/19/2024 23:31:45 OBGyn Episode No OBEpisode recorded.
== END 2025-04-18 09:55 | disposition home or self-care (01) ==
LOC: HO.XRAY 09:54
PROVIDERS: PCP Internal Medicine; Visit Provider Internal Medicine
DX: M25.551 Pain in right hip (principal)
CPT/HCPCS: 73502

== ENCOUNTER → 2025-04-18 09:58 | Outpatient (BNV) | payer OTHER, SELFPAY | PROVIDERS: PCP Internal Medicine; Visit Provider Radiology Diagnostic Radiology | DX: M25.551 Pain in right hip (principal); W18.30XA Fall on same level, unspecified, initial encounter | CPT/HCPCS: 73502 ==

== ENCOUNTER 2025-05-03 09:32 | Outpatient (REF) | payer OTHER, SELFPAY ==
--- NOTE | 2025-05-03 | PFT_ITS ---
Indication: Dyspnea Spirometry FEV1 to FVC 82%; FEV1 2.09 L; FVC 2.54 L. No significant response to bronchodilators noted. Lung Volumes Total lung capacity 79% predicted; expiratory reserve volume 64% predicted Diffusion Capacity DLCO 83% predicted Comparisons None Interpretation No obstructive ventilatory defects identified. No significant response to bronchodilators noted. The patient does have a mild restrictive ventilatory defect. Diffusing capacity is within normal limits. Clinical correlation warranted. MTDD
--- OUTSIDE RECORDS SUMMARY | 2025-05-03 10:31 | XMS_ITS | Clinical Summary ---
Author Organization [employer] Address [address] [facility] [address] [place] [address] Care Team Providers Care Associate Manager Affiliate Marketing Name Role Phone Olamide Chandler MD Primary [...] the morning. 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 We discuss about avoiding scratching, use [...] will follow-up with them tomorrow, will order [facility] to check electrolytes that may be responsible [...] Encounters Date Type Department Care Team Description 04/24/2025 Results Follow-Up [address] [address] Olamide Chandler MD XR Hip 2 or 3 Views Right 04/13/[address] [address] Olamide Chandler MD Gastroesophageal reflux disease, unspecified whether esophagitis present 04/11/2025 11:15 AM EDT Office Visit [address] [address] Olamide Chandler MD Essential hypertension (Primary Dx); Right hip pain; Vertigo; Encounter for immunization; Fibromyalgia 04/11/2025 Travel 04/10/[address] [address] Olamide Chandler MD Chart Prep 04/04/2025 Travel 04/02/2025 Orders Only GENERIC EXTERNAL DATA DEPARTMENT Provider, Generic External Data 03/07/[address] [address] Olamide Chandler MD 02/28/[address] [phone] Olamide Chandler MD Referral 02/20/[address] [phone] Olamide Chandler MD 02/20/[address] [phone] Olamide Chandler MD Stable Lab Orders 02/20/2025 Results Follow-Up [address] [address] Brittney Graham MD Vascular US carotid artery duplex bilateral 02/20/[address] [address] Olamide Chandler MD Results 02/19/2025 11:15 AM EDT Office Visit [address] [phone] Olamide Chandler MD Fibromyalgia (Primary Dx); Essential hypertension; Dyspnea, unspecified type; Burning sensation; Dizziness 02/19/2025 Travel 02/14/[address] [address] Olamide Chandler MD Seasonal allergies 02/12/2025 Travel 02/08/[address] [phone] Olamide Chandler MD from Last 3 Months Immunizations Immunization Administration [...] Description 07/12/2025 11:15 AM EST Office Visit [facility] [address] [place] [address] Brittney Graham MD [address] [place], [place] [phone] Health Maintenance Due Date Last Done Comments CT Colonography 1970 FIT DNA/Cologuard 1970 FIT 1970 FOBT 1970 HIV Screening 1970 Sigmoidoscopy 1970 Hepatitis C Screening 10/21/1989 RSV Patients and Patients Aged 60 years or older (1 - Risk 50-74 years 1-dose series) 10/21/2021 COVID-19 Vaccine ( season) 2025 10/28/2023, 06/22/2021, [...] 05/31/2034 05/31/2024, 03/13/2014, 10/11/2007, Additional history exists IPV Vaccines Completed 09/10/1983, 07/21, 08/03/1978, Additional [...] 02/14/2025 8:28 AM EDT Lightheadedness Essential hypertension BI US BREAST LIMITED LEFT Routine 11/14/2024 [...] AM EDT Narrative 04/18/2025 10:24 AM EDT [address] [address] XRay Report Signed Patient: Laisha Ye I MR#: M [id number] : 1970 Acct:[id number] Age/Sex: 54 / F ADM Date: 04/18/25 Loc: HO.XRAY Attending Dr: Olamide Stevens MD Ordering Physician: Olamide Chandler MD Date of Service: 04/18/25 Procedure(s): XR hip RT min 2V Accession Number(s): [id number] cc: Olamide Chandler MD Reason for Exam: [...] Camilo Owens MD 04/18/2025 10:20 AM EDT Dictated By: Camilo Owens MD Signed By: <Electronically signed by Camilo Owens MD in OV> 04/18/25 1020 DD/ 1012 TD/TT: 04/18/25 1015 Senior Oracle Soa Developer: Procedure Note Donotuseinterpreter, Image - 04/18/[address] [address] XRay Report Signed Patient: Laisha Ye IMR#: M [id number] : 1970Acct:[id number] Age/Sex: 54 / FADM Date: 04/18/25 Loc: HO.XRAY Attending Dr: Olamide Stevens MD Ordering Physician: Olamide Chandler MD Date of Service: 04/18/25 Procedure(s): XR hip RT min 2V Accession Number(s): [id number] cc: Olamide Chandler MD Reason for Exam: [...] Camilo Owens MD 04/18/2025 10:20 AM EDT Dictated By: Camilo Owens MD Signed By: <Electronically signed by Camilo Owens MD in OV> 04/18/25 1020 DD/ 1012 TD/TT: 04/18/25 1015 Senior Oracle Soa Developer: us Olamide Stevens MD IMG XR PROCEDURES Harish johanna Result - Final * Culture, Urine, Routine (04/02/2025 7:56 AM EDT) Urine Urine specimen obtained by clean catch procedure / Unknown 04/02/2025 7:56 AM EDT 04/02/2025 5:24 PM EDT Comment:UACC Narrative [facility] - 04/04/2025 10:19 AM EDT Urine Culture Report Result Urine Culture 10,000 to 50,000 cfu/ml Urine Culture Mixed bacterial marge characteristic of Urine Culture urogenital contamination. Specimen Source: Urine clean catch us Generic External Data Provider LAB MICROBIOLOGY - GENERAL ORDERABLES Final Result [facility] [address] [place] [phone] * Homocysteine (02/19/2025 1:25 PM EDT) Homocysteine 9.8 < or = 13.4 umol/L [facility] Comment:Homocysteine is incr eased by functional deficiency offolate or vitamin B12. Testing for methylmalonic aciddifferentiates between these deficiencies. Other causesof increased homocysteine include renal failure, folateantagonists such as methotrexate and phenytoin, andexposure to nitrous oxide.Edis Muse et al., [employer] Med. 1999;131(5):331-9.THIS TEST WAS PERFORMED AT:[address] [place] [phone] MONDRAGON MD Blood Venous blood specimen / Unknown 02/19/2025 1:25 PM EDT 02/19/2025 1:25 PM EDT us Olamide Stevens MD LAB BLOOD ORDERABLES Final Result Performing Organization Address [facility]/ZIP Co de Phone Number [facility] [address] [place] [phone] * Vitamin B12 (Cobalamin) and Folate Panel, Serum (02/19/2025 12:31 PM EDT) Vitamin B12 531 200 - 900 pg/mL [facility] Comment:NORMAL 200-900 PG/ML INDETERMINATE 160-199 PG/ML DEFICIENT < 160 PG/ML Folate 6.9 > or = 4.0 ng/mL [facility] Comment:Reference Values:> o r = [...] BLOOD ORDERABLES Final Result Performing Organization Address [facility]/ZIP Co de Phone Number [facility] [address] [place] [phone] * TSH with Reflex to Free T4 (02/19/2025 12:31 PM EDT) TSH reflex Free T4 0.52 0.32 - 4.0 uIU/mL [facility] Blood Venous blood specimen / Unknown 02/19/2025 12:31 PM EDT 02/19/2025 4:00 PM EDT Olamide Stevens MD LAB BLOOD ORDERABLES Final Result Performing Organization Address [facility]/ZIP Co de Phone Number [facility] [address] [place] [phone] * Lyme Disease Ab with Reflex to Blot (IgG, IgM) (02/19/2025 12:31 PM EDT) Pathologist [facility] Lyme Antibody Screen <0.90 index [facility] Comment:Index Interpretation ----- < 0.90 [...] when erythemamigrans is apparent.THIS TEST WAS PERFORMED AT:[address] [place] [phone] MONDRAGON MD Lyme Blot TNP [facility] 02/19/2025 12:3 1 PM EDT 02/19/2025 4:00 PM EDT us Olamide Stevens MD LAB BLOOD ORDERABLES Final Result Performing Organization Address City/[facility]/ZIP Co de Phone Number [facility] [address] [place] [phone] * (ABNORMAL) CBC auto differential (02/19/2025 12:31 PM EDT) White Blood Count 10.4 4.8 - 10.8 X10*3/uL [facility] Red Blood Count 4.62 4.20 - 5.50 X10*6/uL [facility] Hemoglobin 13.2 12.0 - 16.0 g/dl [facility] Hematocrit 41.0 37.0 - 47.0 % [facility] Mean Corpuscular Volume 88.7 80.0 - 98.0 fL [facility] Mean Corpuscular Hemoglobin 28.6 27.0 - 33.0 pg [facility] Mean Corpuscular HGB Conc 32.2 31.0 - 35.0 g/dl [facility] Red Cell Distribution Width 12.4 11.0 - 16.0 % [facility] Platelet Count 326 160 - 400 X10*3/uL [facility] Mean Platelet Volume 10.3 9.4 - 12.3 fL [facility] Neutrophils Percent Auto 80.1(H) 45 - 73 % [facility] Imm Gran Pct Auto 0.5(H) 0.0 - 0.4 % [facility] Lymphocytes Percent Auto 13.5(L) 20 - 40 % [facility] Monocytes Percent Auto 5.1 2 - 11 % [facility] Eosinophils Percent Auto 0.2 0 - 4 % [facility] Basophils Percent Auto 0.6 0 - 2 % [facility] NRBC Pct Auto 0.0 0.0 - 0.2 /100WBC [facility] Neutrophils Absolute Auto 8.3 2.0 - 8.3 x10*3/uL [facility] Imm Gran Abs Auto 0.05(H) 0.00 - 0.03 X10*3/uL [facility] Lymphocytes Absolute Auto 1.4 1.2 - 4.9 X10*3/uL [facility] Monocytes Absolute Auto 0.5 0.1 - 1.2 X10*3/uL [facility] Eosinophils Absolute Auto 0.0 0.0 - 0.4 X10*3/uL [facility] Basophils Absolute Auto 0.1 0.0 - 0.2 X10*3/uL [facility] NRBC Abs Auto 0.000 0.0 - 0.012 X10*3/uL [facility] Blood Venous blood specimen / Unknown 02/19/2025 12:31 PM EDT 02/19/2025 4:10 PM EDT us Olamide Stevens MD LAB BLOOD ORDERABLES Final Result [facility] [address] [place] [phone] * Methylmalonic Acid (02/19/2025 12:31 PM EDT) Methylmalonic Acid 61 55 - 335 nmol/L [facility] Comment: Serum methylmalonic acid (MMA) [...] outcomes,such as neural tube defects and intrauterine growthrestriction.[employer] utilized Multi-Modal Decomposition(MMD) analysis to establish first and second trimester-specific MMA reference intervals in , as givenbelow:MMA, First trimester (<13 wks gestation): 58-167 nmol/LMMA, Second trimester (13-23 wks gestation):63-241 nmol/LThis test was developed and its analytical performancecharacteristics have been determined by [employer]. It has not been cleared or approved by theFDA. This assay has been validated pursuant to the CLIAregulations and is used for clinical purposes.THIS TEST WAS PERFORMED AT:[email or web address]/[facility] [place] [id number] G LEWIS MD,PHD Blood Venous blood specimen / Unknown 02/19/2025 12:31 PM EDT 02/19/2025 4:00 PM EDT us Olamide Stevens MD LAB BLOOD ORDERABLES Final Result Performing Organization Address [facility]/ZIP Co de Phone Number [facility] [address] [place] [phone] * RPR (Monitor) with Reflex to??Titer (02/19/2025 12:31 PM EDT) RPR (Monitor) w/Refl Titer NON-REACTI VE NON-REACT SHAHEEN [facility] Comment:THIS TEST WAS PERFOR MED AT:[address] [place] [phone] MONDRAGON MD Rapid Plasma Reagin Ab Titer TNP [facility] Blood Venous blood specimen / Unknown 02/19/2025 12:31 PM EDT 02/19/2025 4:00 PM EDT us Olamide Stevens MD LAB BLOOD ORDERABLES Final Result Performing Organization Address [facility] Co de Phone Number [facility] [address] [place] [phone] * Hemoglobin A1c (02/19/2025 12:31 PM EDT) Hemoglobin A1c 5.4 <6.0 % [facility] Comment:Hemoglobin A1C Refer ence Range Adults: 4.8 - 6.0 % Non diabetic: < 6.0 % Goal: < 7.0 %Additional Action Suggested: > 8.0 %Note: Hemoglobin A1c results are invalid for patients with abnormal amounts of HbF. Blood transfusions may impact the HbA1c concentration in the patient sample. Estimated Average Glucose 108 mg/dL [facility] Comment:eAG = Estimated ave rage glucose which is %A1C expressed asaverage glucose, using the formula of the V5Q-ZrdajciFjkvckq Glucose study (ADAG), Diabetes Care, Vol.31,#8,Jan. 2007 Blood Venous blood specimen / Unknown 02/19/2025 12:31 PM EDT 02/19/2025 4:10 PM EDT Olamide Stevens MD LAB BLOOD ORDERABLES Final Result [facility] [address] [place] [phone] * Comprehensive Metabolic Panel (02/19/2025 12:31 PM EDT) Sodium 140 135 - 145 mmol/L [facility] Potassium 3.7 3.3 - 5.1 mmol/L [facility] Chloride 103 96 - 108 mmol/L [facility] Carbon Dioxide 27 22 - 29 mmol/L [facility] Anion Gap 14 12 - 20 [facility] Urea Nitrogen (BUN) 13 9 - 16 mg/dL [facility] Creatinine, Serum 0.82 0.5 - 1.4 mg/dL [facility] Estimated Glomerular Filt Rate >60 [facility] Comment:Chronic Kidney Disea se: Estimated GFR < 60 mL/min/1.92o1Slcdsh Kidney Disease: Estimated GFR < 15 mL/min/1.73m2 Glucose 104 60 - 115 mg/dL [facility] Calcium 9.6 8.4 - 10.2 mg/dL [facility] Bilirubin, Total 0.4 0.0 - 1.0 mg/dL [facility] Aspartate Amino Transferase 23 5 - 31 U/L [facility] Alanine Aminotransferase 15 0 - 31 U/L [facility] Total Protein 8.0 6.5 - 8.0 g/dL [facility] Albumin Level 4.4 3.5 - 5.0 g/dL [facility] Alkaline Phosphatase 78 39 - 117 U/L [facility] Blood Venous blood specimen / Unknown 02/19/2025 12:31 PM EDT 02/19/2025 4:00 PM EDT us Olamide Stevens MD LAB BLOOD ORDERABLES Final Result [facility] [address] [place] [phone] * Vascular US carotid artery duplex bilateral (02/14/2025 8:28 AM EDT) 02/14/2025 8:28 AM EDT Narrative [facility] - 02/14/2025 8:29 AM EDT [address] [address] Ultrasound Report Signed Patient: Laisha Ye I MR#: M [id number] : 1970 Acct:[id number] Age/Sex: 54 / F ADM Date: 02/13/25 Loc: HO.US Attending Dr: Brittney Graham MD Ordering Physician: Brittney Graham MD Date of Service: 02/13/25 Procedure(s): US carotid duplex BI Accession Number(s): [id number] cc: Olamide Chandler MD; Brittney Graham MD [...] in OV> 02/14/[address] DD/ 7 TD/TT: 02/14/25827 Senior Oracle Soa Developer: Procedure Note Donotuseinterpreter, Image - 02/14/[address] [address] Ultrasound Report Signed Patient: Laisha Ye IMR#: M [id number] : 1970Acct:[id number] Age/Sex: 54 / FADM Date: 02/13/25 Loc: HO.US Attending Dr: Brittney Graham MD Ordering Physician: Brittney Graham MD Date of Service: 02/13/25 Procedure(s): US carotid duplex BI Accession Number(s): [id number] cc: Olamide Chandler MD; Brittney Graham MD [...] in OV> 02/14/25828 DD/ 7 TD/TT: 02/14/25827 Senior Oracle Soa Developer: us Brittney Graham MD CV VASCULAR PROCEDURES F inal Result [facility] [address] [place] [phone] * BI US Breast Limited Left (11/14/2024 11:00 AM EDT) Anatomical Region Laterality Modality Breast Left Ultrasound 11/14/2024 11:0 0 AM EDT Narrative 11/14/2024 3:08 PM EDT [facility] [address] [place], [place] [address] Ultrasound Report Signed Patient: Laisha Ye I MR#: Kasie [id number] : 1970 Acct:[id number] Age/Sex: 54 / F ADM Date: 11/14/24 Loc: HO.MAMMO Attending Dr: Olamide Stevens MD Ordering Physician: Olamide Chandler MD Date of Service: 11/14/24 Procedure(s): US breast LT limited mamm only Accession Number(s): [id number] cc: Olamide Chandler MD EXAMINATION: MM DIAGNOSTIC [...] 11/14/2024 03:05 PM EDT Dictated By: Deana Sahfer DO Signed By: <Electronically signed by Deana Shafer DO in OV> 11/14/24 1505 DD/ 1100 TD/TT: 11/14/24 1100 Senior Oracle Soa Developer: Procedure Note Donotuseinterpreter, Image - 11/14/2024 [facility] [address] [place], [place] [address] Ultrasound Report Signed Patient: Laisha Ye IMR#: M [id number] : 1970Acct:[id number] Age/Sex: 54 / FADM Date: 11/14/24 Loc: HO.MAMMO Attending Dr: Olamide Stevens MD Ordering Physician: Olamide Chandler MD Date of Service: 11/14/24 Procedure(s): US breast LT limited mamm only Accession Number(s): [id number] cc: Olamide Chandler MD EXAMINATION: MM DIAGNOSTIC [...] Shafer DO Signed By: <Electronically signed by Daena Shafer DO in OV> 11/14/24 1505 DD/ 1100 TD/TT: 11/14/24 1100 Senior Oracle Soa Developer: us Olamide Stevens MD IMG US PROCEDURES Fin al Result * (ABNORMAL) Lipid Panel with Reflex to Direct LDL (03/29/2024 9:50 AM EDT) Triglycerides 89 <150 mg/dL [facility] Comment:Desirable Triglyceri de: less than 150 mg/dLBorderline High Triglyceride 150-199 mg/dLHigh Triglyceride: 200-499 mg/dLVery High Triglyceride: greater than or equal to 5OO mg/dL Cholesterol 168 <200 mg/dL [facility] Comment:Desirable Cholestero l: less than 200 mg/dLBorderline High Cholesterol: 200-239 mg/dLHigh Cholesterol: greater than 239 mg/dL LDL Cholesterol Calculated 107(H) <100 mg/dL [facility] Comment:Desirable LDL: less than 100 mg/dLNear Optimal/Above Optimal LDL: 110- 129 mg/dLBorderline High LDL: 130-159 mg/dLHigh LDL: 160-189 mg/dLVery High LDL: greater than or equal to 190 mg/dL HDL Cholesterol 44 >40 mg/dL [facility] Comment:Desirable HDL: great er than 40 mg/dL Note: This HDL assay may give artificially low results in patients with liver disease. Blood 03/29/2024 9:50 AM EDT 03/29/2024 11:08 AM EDT Olamide Stevens MD LAB BLOOD ORDERABLES Final Result [facility] [address] [place] [phone] * Image-Guided Pap with Age-Based Screening??with CT/NG,??Trichomonas (10/29/2022 11:29 AM EDT) Comment [employer] [facility] [place] [facility] Comment: This order for age-based cervical cancer and STI screening follows ACOG guidelines(PB 168, 140, XYN423). See individual assays for performing site location. Clinical Information: 52 Y/O F NO PREVIOUS ABNORMALITY C [facility] [facility] [place] [facility] LMP: NONE GIVEN [facility] [place] [facility] Prev. PAP: NONE GIVEN [facility] [place] [facility] Prev. BX: NONE GIVEN [facility] [place] [facility] SOURCE: None given [facility] [place] [facility] Statement Of Adequacy: [employer] [facility] [place] [facility] Comment: Satisfactory for evaluation. Endocervical/transformation zone component absent. Interpretation/Re sult: Negative for intraepithelial lesion or malignancy. [employer] [facility] [place] [facility] COMMENT: This Pap test has been evaluated with computer assisted technology. [employer] [facility] [place] [facility] Wire Bender: Amalia Radiant [employer] [place] [facility] Comment: EXJ, CT(ASCP) CT Screening Location: [address] [address] (Always Message) [facility] [place] [facility] Comment: EXPLANATORY NOTE: The Pap is a [...] HPV nRNA E6/E7 Not Detected Not Detected [employer] [facility] [place] [facility] Comment: Methodology: [employer]-Mediated Amplification This assay detects E6/E7 viral messenger RNA (mRNA) from 14 high-risk HPV types (16,18,31,33,35,39,45,51,52,56,58,59,66,68). Cervical sources are required for HPV testing. If a vaginal source from a patient who has had a total hysterectomy with removal of cervix was submitted, please contact the testing laboratory for alternative testing options. For additional information, please refer to http://Titansan.[email or web address]/faq/PUX594p1 (This link if provided for information/ educational purposes only.) Chlamydia trachomatis RNA, TMA, Urogenital NOT DETECTED NOT DETECTED [employer] [facility] Neisseria gonorrhoeae RNA, TMA, Urogenital NOT DETECTED NOT DETECTED [facility] Comment [facility] [facility] Comment: The analytical performance characteristics of this assay, when used to test SurePath(TM) specimens have been determined by [employer]. The modifications have not been cleared or approved by the FDA. This assay has been validated pursuant to the CLIA regulations and is used for clinical purposes. For additional information, please refer to https://Conelum/faq/RVD803 (This link is being provided for information/ educational purposes only.) Trichomonas vaginalis, QL, TMA, PAP Vial NOT DETECTED NOT DETECTED [facility] Comment: The analytical performance characteristics of this assay have been determined by [employer]. The modifications have not been cleared or approved by the FDA. This assay has been validated pursuant to the CLIA regulations and is used for clinical purposes. For additional information, please refer to [email or web address]/ faq/Trichomonastma (This link is being provided for information/ educational purposes only.) Pap Vial 10/29/2022 11:2 9 AM EDT 10/31/2022 4:55 PM EDT Olamide Stevens MD LAB CYTOLOGY ORDERABL ES Final Result [facility] [address], [place] [phone] [facility] [facility] [address] [place] [phone] * Hm Colonoscopy (04/12/2022 10:07 PM EDT) us Historical Provider HEALTH MAINTENANCE Final Result from Last 3 Months or Most Recently Relevant to Health Maintenance Insurance [facility] ONE CARE < 65 [place] [id number] Care Teams Associate Manager Affiliate Marketing Relationship Specialty Start Date End Date Olamide Chandler MD [address] [place] [phone] PCP - General Family Medicine 07/28/20
--- OUTSIDE RECORDS SUMMARY | 2025-05-03 10:31 | XMS_ITS | Data Portability ---
Author Organization [place] - [facility], Allergy Address [address] [address] Care Team Providers Care Signals Intelligence Analysis Manager Name Role Phone PEGGY GILES Primary Care Provider Assessment Encounter Date Assessment Date Assessment LastModified by Organization Details LastModified Time 02/06/2025 02/06/2025 54 year old female, with a history of KARLA on CPAP therapy, presents for evaluation of dizziness. MRI of the brain done at [facility] on 01/25/25 to monitor a meningioma incidentally showed a small mucous retention cyst in the posterior maxillary antrum. Bilateral tympanic membranes are intact with well aerated middle ear spaces. No evidence of effusion or infection. Sandy-Hallpike was negative for nystagmus bilaterally, however she did endorse lightheadedness upon sitting upright. Patient also exhibited swaying with Romberg test. Fukuda marching test was positive for rotation to the right. We discussed that the patient's history and symptoms are not consistent with otologic pathology. Recommend following up with her neon molder as her newly prescribed carvedilol may be [...] 025 [facility] Neurology Scheduling, [address] [facility], [place], [address], 5 11:37:36 Procedures None recorded. Surgeries None [...] Recorded Time Acute eczematoi d otitis externa 36590813 Active 2021 Acute eczematoi d otitis externa, bilateral ; Note: Date Diagnosed : 12/16/2021 9:33 AM (H60.543) Not Available [facility] 4 02:24:58 Dizziness and giddiness 748672253 Active 2023 Dizziness and giddiness ; Note: Date Diagnosed : 08/30/2023 1:50 PM (R42) Not Available [facility] 4 02:24:42 Impacted cerumen of bilateral ears 26097423161 80973 Active 2023 Impacted cerumen, bilateral ; Note: Date Diagnosed : 08/30/2023 1:50 PM (H61.23) Not Available [facility] 4 02:25:05 Lighthead edness 051363877 Active 2024 NADIR MEZA 100 [facility] 100, [place], [address] , [place] - [facility] 5 10:04:06 Intracran ial meningiom a 338476661 Active 2024 NADIR MEZA 100 [facility] [address], [place], [address] , [place] - [facility] 5 10:22:49 Referred otalgia of right ear 29149777395 79587 Active 2024 NADIR MEZA 100 [facility] 100, [place], [address] , [facility] - [facility] 5 10:24:37 Obstructi ve sleep apnea syndrome 29153158 Active 2024 NADIR MEZA 100 [facility] 100, [place], [address] , [facility] - [facility] 5 10:31:44 Disorder of brain 34698130 Active 2024 NADIR MEZA 100 [facility] 100, [place], [address] , [facility] - [facility] 20:28:53 Problem Notes None recorded. Medical Equipment None Reported. Allergies Allergen ID Allergen Name Allergen Category Reaction Reaction Severity Criticality Documentation Date Start Date Code Code System Note Provider Name and Address Organization Details Recorded Time 85097 Prozac medicatio n other Not available Not available 11/01/2023 19767 RxNorm React ion: other react ion, Unkno wn; Not Available [facility] 4 00:57:12 56341 Tums medicatio n other Not available Not available 11/01/2023 78429 8 RxNorm React ion: other react ion, Unkno wn; Not Available [facility] 4 00:57:23 Medications Name Sig Start Date [...] mg tablet 08/29 completed Medicati on ID: [id number] B rand Name: trazodon e Send Method: E-Prescr ibed Sub s Allowed: subs OK Medic ationGen ericName : trazodon e Not Available Not Available Not Available citalopra m 10 mg tablet TAKE 1 TABLET BY MOUTH DAILY IN ADDITION TO 20 MG TABLET active Not Available Not Available No t Available sucralfat e 1 gram tablet 08/29 completed Medicati on ID: 013316 B rand Name: sucralfa te Send Method: E-Prescr ibed Sub s Allowed: subs OK Medic ationGen ericName : sucralfa te Not Available Not Available Not Available Excedrin Migraine 250 mg-250 mg-65 mg tablet 08/29 completed Medicati on ID: 852004 B rand Name: Excedrin Migraine Send Method: E-Prescr ibed Sub s Allowed: subs OK Medic ationGen ericName : Excedrin Migraine Not Available Not Available Not Available acetamino phen 500 mg tablet 08/29 completed Medicati on ID: 675798 B rand Name: acetamin ophen Se nd [...] mg capsule 08/29 completed Medicati on ID: 909247 B rand Name: Macrobid Send Method: E-Prescr [...] mg tablet 08/29 completed Medicati on ID: 318581 B rand Name: amitript yline Se nd Method: E-Prescr ibed Sub s Allowed: subs OK Medic ationGen ericName : amitript yline Not Available Not Available Not Available meclizine 25 mg tablet active Medicati on ID: 298482 B rand Name: meclizin e Send Method: E-Prescr ibed Sub s Allowed: subs OK Medic ationGen ericName : meclizin e Not Available Not Available Not Available baclofen 10 mg tablet 08/29 completed Medicati on ID: 445065 B rand Name: baclofen Send Method: E-Prescr ibed Sub s Allowed: subs OK Medic ationGen ericName : baclofen Not Available Not Available Not Available amlodipin e 10 mg tablet 02/06 completed Medicati on ID: 325956 B rand Name: amlodipi ne Send Method: E-Prescr ibed Sub s Allowed: subs OK Medic ationGen ericName : amlodipi ne Not Available Not Available Not Available tacrolimu s 0.1 % topical ointment APPLY TOPICALL Y TO FACE TWICE DAILY NEEDED FOR FLARES active Not Available Not Available No t Available lisinopri l 10 mg tablet 02/06 completed Medicati on ID: 700352 B rand Name: lisinopr il Send Method: E-Prescr ibed Sub s Allowed: subs OK Medic ationGen ericName : lisinopr il Not Available Not Available Not Available losartan 25 mg tablet 02/06 completed Medicati on ID: [id number] B rand Name: losartan Send Method: E-Prescr [...] mg tablet 08/29 completed Medicati on ID: 725822 B rand Name: monteluk ast Send Method: E-Prescr ibed Sub s Allowed: subs OK Medic ationGen ericName : monteluk ast Not Available Not Available Not Available fluticaso ne 100 mcg-salme terol 50 mcg/dose blistr powdr for inhalatio n 08/29 completed Medicati on ID: 253706 B rand Name: fluticas one propion- salmeter ol Send Method: E-Prescr ibed Sub s Allowed: subs OK Medic ationGen ericName : fluticas one propion- salmeter ol Not Available Not Available Not Available polyethyl tejas glycol 3350 17 gram/dose oral powder 08/29 completed Medicati on ID: 051521 B rand Name: polyethy jermaine glycol 3350 Sen d Method: E-Prescr ibed Sub s Allowed: subs OK Medic ationGen ericName : polyethy jermaine glycol 3350 Not Available Not Available Not Available albuterol sulfate HFA 90 mcg/actua tion aerosol inhaler 08/29 completed Medicati on ID: 258565 B rand Name: albutero l sulfate Send [...] %) nasal spray active Medicati on ID: 443707 B rand Name: ipratrop ium bromide Send Method: E-Prescr ibed Sub s Allowed: subs OK Medic ationGen ericName : ipratrop ium bromide Not Available Not Available Not Available loratadin e 10 mg tablet 08/29 completed Medicati on ID: 127121 B rand Name: loratadi ne Send Method: [...] as directed 08/29 completed Medicati on ID: [id number] P josefribe d By Name: Rupinder Levine [...] Updated DateTime 02/06/2025 154.94 cm 34.8 kg/m2 21823 g Conchita Ford [place] - [facility] 02/06/2025 09:38:08 Social History None recorded. Functional Status None recorded. Mental Status None recorded. Family History Nothing Reported. Medical History No medical history recorded. Gynecological HistoryNo gynecological history recorded. Obstetrics History GPAL:G 0 P 0 0 0 0 Past Encounters Encounter ID Performer Location Encounter Start Date Encounter Closed Date Diagnosis/Indication Diagnosis SNOMED-CT Code Diagnosis ICD10 Code Diagnosis IMO Codes Diagnosis Note [id number] NADIR MEZA [facility] [address] [address] 02/06/2025 09:28:44 02/06/2025 10:09:14 Lightheadedness 436895540 R42 24832 Intracrani al meningioma 408250638 D32.0 271990 Referred o talgia of right ear 1559937527 612431 H92.01 M26.621 M79.11 The patient complains of [...] considered . Obstructiv e sleep apnea syndrome 92080030 G47.33 8918129 Patient is unsure if her current pressure settings are causing her throat discomfort . She will follow up with her sleep medicine provider to discuss if this can be adjusted. Disorder of brain 523794 09 G93.40 8156324 Health Concerns Section Related Observation LastModified by Organization Detai ls LastModified Time None Recorded Concern Status LastModified by Organization Details LastModified Time None Recorded Advance Directives Directive None Recorded Payers Insurance Date Sequence Insurance Name Policy Number Policy Downey Covered Member ID Downey Member ID Guarantor Name 04/23/2025 1 [facility] - DOS ON OR AFTER 2022 - ONE CARE (MEDICARE REPLACEMENT/ADV ANTAGE - HMO) Laisha Riggins [id number] Laisha Riggins Notes Date Note Type Note [...] physician. MRI of the brain done at [facility] on 01/25/25 incidentally showed a small [...] lightheadedness. This is being managed by her neon molder. MARISOL JESUS MD [address] [place] [address], [phone], [facility] - [facility] 02/07/2025 12:30:48 OBGyn Episode No OBEpisode recorded.
--- OUTSIDE RECORDS SUMMARY | 2025-05-03 10:32 | XMS_ITS | Encounter Summary ---
Author Organization [employer] Address [address] [facility] 7t [place] [address] Care Team Providers Care Meat Boner And Slicer Name Role Phone Olamide Chandler MD Primary Care Provide r Encounter Details Date Type Department Care Team ([facility] Contact Info) Description 08/18/2022 Telephone [facility] [address] [place], [place] [phone] Olamide Chandler MD [address] [place], [place] [phone] Social History Tobacco Use Types Packs/Day Years [...] Description 07/12/2025 11:15 AM EST Office Visit [facility] [address] [place] [address] Brittney Graham MD [address] [place] [address] documented as of this encounter Visit Diagnoses Not on filedocumented in this encounter Care Teams Meat Boner And Slicer Relationship Specialty Start Date End Date Olamide Chandler MD [address] [place] [address] PCP - General Family Medicine 07/28/20 documented as of this encounter
--- OUTSIDE RECORDS SUMMARY | 2025-05-03 10:32 | XMS_ITS | Encounter Summary ---
Author Organization [employer] Address [address] [facility] 7t [place] [address] Care Team Providers Care Hide And Skin Classer Name Role Phone Olamide Chandler MD Primary Care Provide r Encounter Details Date Type Department Care Team (Late st Contact Info) Description 10/19/2024 Orders Only [facility] [address] [place] [address] Provider, MD Maurisio Social History Tobacco Use [...] Description 07/12/2025 11:15 AM EST Office Visit [facility] [address] [place] [address] Brittney Graham MD [address] [place], [place] [phone] documented as of this encounter Procedures Procedure [...] EDT Narrative 11/14/2024 3:08 PM EDT [facility] [address] [place] [address] Ultrasound Report Signed Patient: Laisha Ye I MR#: [id number] : 1970 Acct:[id number] Age/Sex: 54 / F ADM Date: 11/14/24 Loc: HO.MAMMO Attending Dr: Olamide Stevens MD Ordering Physician: Olamide Chandler MD Date of Service: 11/14/24 Procedure(s): US breast LT limited mamm only Accession Number(s): [id number] cc: Olamide Chandler MD EXAMINATION: MM DIAGNOSTIC [...] 11/14/24 1505 DD/ 1100 TD/TT: 11/14/24 1100 Meat Hostess: Procedure Note Donotuseinterpreter, Image - 11/14/2024 [facility] [address] [place], [place] [address] Ultrasound Report Signed Patient: Laisha Ye IMR#: [id number] : 1970Acct:[id number] Age/Sex: 54 / FADM Date: 11/14/24 Loc: HO.MAMMO Attending Dr: Olamide Stevens MD Ordering Physician: Olamide Chandler MD Date of Service: 11/14/24 Procedure(s): US breast LT limited mamm only Accession Number(s): [id number] cc: Olamide Chandler MD EXAMINATION: MM DIAGNOSTIC [...] 11/14/24 1505 DD/ 1100 TD/TT: 11/14/24 1100 Meat Hostess: us Olamide Stevens MD IMG US PROCEDURES Fin al Result * BI Mammogram Diagnostic Tomosynthesis added left (11/14/2024 10:30 AM EDT) Anatomical Region Laterality Modality Breast Left Mammography 11/14/2024 10:3 0 AM EDT Narrative 11/14/2024 3:08 PM EDT [facility] [address] [place] [address] Mammography Report Signed Patient: Laisha Ye I MR#: [id number] : 1970 Acct:[id number] Age/Sex: 54 / F ADM Date: 11/14/24 Loc: HO.MAMMO Attending Dr: Olamide Stevens MD Ordering Physician: Olamide Chandler MD Results: 3.6MProbably Benign Finding - Short 6 M F/U Suggested Date of Service: 11/14/24 Follow Up: 6 Month F/U Procedure(s): MM tomosynthesis added views L Accession Number(s): [id number] cc: Olamide Chandler MD EXAMINATION: MM DIAGNOSTIC [...] 11/14/24 1505 DD/ 1030 TD/TT: 11/14/24 1100 Meat Hostess: Procedure Note Donotuseinterpreter, Image - 11/14/2024 [facility] [address] [place] [address] [place] [address] Mammography Report Signed Patient: [facility] Ye [facility]#: [id number] : 1970Acct:[id number] Age/Sex: 54 / FADM Date: 11/14/24 Loc: HO.MAMMO Attending Dr: Olamide Stevens MD Ordering Physician: Olamide Chandler MD Results: 3.6MProbably Benign Finding - Short 6 M F/U Suggested Date of Service: 11/14/24Follow Up: 6 Month F/U Procedure(s): MM tomosynthesis added views L Accession Number(s): [id number] cc: Olamide Chandler MD EXAMINATION: MM DIAGNOSTIC [...] 11/14/24 1505 DD/ 1030 TD/TT: 11/14/24 1100 Meat Hostess: us Olamide Stevens MD IMG BI PROCEDURES Fin al Result * Hm Colonoscopy (04/12/2022 10:07 PM EDT) us Historical Provider HEALTH MAINTENANCE Final Result documented in this encounter Visit Diagnoses Not on filedocumented in this encounter Additional Health Concerns Assessment Noted Time PHQ-9 Depression Total Score: 024 9:17 AM EDT documented as of this encounter Care Teams Hide And Skin Classer Relationship Specialty Start Date End Date Olamide Chandler MD [address] [place] [address] PCP - General Family Medicine 07/28/20 documented as of this encounter
--- OUTSIDE RECORDS SUMMARY | 2025-05-03 10:32 | XMS_ITS | Encounter Summary ---
Author Organization [employer] Address [address] [facility] 7t [place] [address] Care Team Providers Care Equal Opportunity Representative Name Role Phone Olamide Chandler MD Primary Care Provide r Encounter Details Date Type Department Care Team ([facility] st Contact Info) Description 12/04/2024 Orders Only [facility] [address] [place], [place] [phone] Olamide Chandler MD [address] [place], [place] [phone] Social History Tobacco Use Types Packs/Day Years [...] Description 07/12/2025 11:15 AM EST Office Visit [facility] [address] [place] [address] Brittney Graham MD [address] [place] [address] documented as of this encounter Visit Diagnoses Not on filedocumented in this encounter Additional Health Concerns Assessment Noted Time PHQ-9 Depression Total Score: 25 024 9:17 AM EDT documented as of this encounter Care Teams Equal Opportunity Representative Relationship Specialty Start Date End Date Olamide Chandler MD [address] [place] [address] PCP - General Family Medicine 07/28/20 documented as of this encounter
--- OUTSIDE RECORDS SUMMARY | 2025-05-03 10:32 | XMS_ITS | Encounter Summary ---
Author Organization [employer] Address [address] [facility] 7t [place] [address] Care Team Providers Care Montessori Paraprofessional Name Role Phone Olamide hCandler MD Primary Care Provide r Reason for Visit * Reason Comments Med Refill Encounter Details Date Type Department Care Team (Late st Contact Info) Description 11/27/2024 Refill [facility] [address] [place], [place] [phone] Olamide Chandler MD [address] [place], [place] [phone] Class 3 severe obesity due to excess [...] Description 07/12/2025 11:15 AM EST Office Visit [facility] [address] [place] [phone] Brittney Graham MD [address] [place] [address] documented as of this encounter Visit Diagnoses Diagnosis Class 3 severe obesity due to excess calories with serious comorbidity and body mass index (BMI) of 45.0 to 49.9 in adult (HCC) documented in this encounter Additional Health Concerns Assessment Noted Time PHQ-9 Depression Total Score: 25 024 9:17 AM EDT documented as of this encounter Care Teams Montessori Paraprofessional Relationship Specialty Start Date End Date Olamide Chandler MD [address] [place] [address] PCP - General Family Medicine 07/28/20 documented as of this encounter
--- OUTSIDE RECORDS SUMMARY | 2025-05-03 10:32 | XMS_ITS | Encounter Summary ---
Author Organization [employer] Address [address] [facility] 7t [place] [address] Care Team Providers Care Dye House Vat Worker Name Role Phone Olamide Chandler MD Primary Care Provide r Reason for Visit * Reason Comments Med Refill Encounter Details Date Type Department Care Team (Late st Contact Info) Description 11/03/2024 Refill [facility] [address] [place], [place] [phone] Olamide Chandler MD [address] [place], [place] [phone] Class 3 severe obesity due to excess [...] Description 07/12/2025 11:15 AM EST Office Visit [facility] [address] [place] [phone] Brittney Graham MD [address] [place] [address] documented as of this encounter Visit Diagnoses Diagnosis Class 3 severe obesity due to excess calories with serious comorbidity and body mass index (BMI) of 45.0 to 49.9 in adult (HCC) documented in this encounter Additional Health Concerns Assessment Noted Time PHQ-9 Depression Total Score: 25 024 9:17 AM EDT documented as of this encounter Care Teams Dye House Vat Worker Relationship Specialty Start Date End Date Olamide Chandler MD [address] [place] [address] PCP - General Family Medicine 07/28/20 documented as of this encounter
--- OUTSIDE RECORDS SUMMARY | 2025-05-03 10:32 | XMS_ITS | Continuity of Care Document ---
Author Organization [place] - [facility], [facility] Address [address] [place] [address] Care Team Providers Care Rest Room Maid Name Role Phone PEGGY GILES Primary Care Provider Assessment Encounter Date Assessment Date Assessment LastModified by Organization Details LastModified Time 02/06/2025 02/06/2025 54 year old female, with a history of KARLA on CPAP therapy, presents for evaluation of dizziness. MRI of the brain done at [facility] on 01/25/25 to monitor a meningioma [...] otologic pathology. Recommend following up with her franchise consultant as her newly prescribed carvedilol may be [...] Romberg and Fukuda marching test 2024 025 [facility] Scheduling, [address] [place], [address], 5 11:37:36 Procedures None recorded. Surgeries None [...] Recorded Time Acute eczematoi d otitis externa 86796777 Active 2021 Acute eczematoi d otitis externa, bilateral ; Note: Date Diagnosed : 12/16/2021 9:33 AM (H60.543) Not Available Critical access hospital 4 02:24:58 Dizziness and giddiness 851412811 Active 2023 Dizziness and giddiness ; Note: Date Diagnosed : 08/30/2023 1:50 PM (R42) Not Available Critical access hospital 4 02:24:42 Impacted cerumen of bilateral ears [id number] 03483 Active 2023 Impacted cerumen, bilateral ; Note: Date Diagnosed : 08/30/2023 1:50 PM (H61.23) Not Available Critical access hospital 4 02:25:05 Lighthead edness 076627822 Active 2024 NADIR MEZA [address] [facility],[place] [address], [place], [address] , [place] - [facility] 5 10:04:06 Intracran ial meningiom a 364577797 Active 2024 NADIR MEZA [address] [facility],[place] [address], [place], [address] , [facility] - [facility] 5 10:22:49 Referred otalgia of right ear 69577757382 19397 Active 2024 NADIR MEZA [address], [place], [place], [address] , [facility] - [facility] 5 10:24:37 Obstructi ve sleep apnea syndrome 16614520 Active 2024 NADIR MEZA [address], [place], [place], [address] , [facility] - [facility] 5 10:31:44 Disorder of brain 42771126 [facility] 2024 NADIR MEZA [address], [place], [place], [address] , [place] - [facility] 20:28:53 Problem Notes None recorded. Medical Equipment None Reported. Allergies Allergen ID Allergen Name Allergen Category Reaction Reaction Severity Criticality Documentation Date Start Date Code Code System Note Provider Name and Address Organization Details Recorded Time 65594 Prozac medicatio n other Not available Not available 11/01/2023 47518 RxNorm React ion: other react ion, Unkno wn; Not Available Critical access hospital 4 00:57:12 57659 Tums medicatio n other Not available Not available 11/01/2023 11384 8 RxNorm React ion: other react ion, Unkno wn; Not Available Critical access hospital 4 00:57:23 Medications Name Sig Start Date [...] mg tablet 08/29 completed Medicati on ID: [id number] B rand Name: trazodon e Send Method: E-Prescr ibed Sub s Allowed: subs OK Medic ationGen ericName : trazodon e Not Available Not Available Not Available citalopra m 10 mg tablet TAKE 1 TABLET BY MOUTH DAILY IN ADDITION TO 20 MG TABLET active Not Available Not Available No t Available sucralfat e 1 gram tablet 08/29 completed Medicati on ID: [id number] B rand Name: sucralfa te Send Method: E-Prescr ibed Sub s Allowed: subs OK Medic ationGen ericName : sucralfa te Not Available Not Available Not Available Excedrin Migraine 250 mg-250 mg-65 mg tablet 08/29 completed Medicati on ID: 763769 B rand Name: Excedrin Migraine Send Method: E-Prescr ibed Sub s Allowed: subs OK Medic ationGen ericName : Excedrin Migraine Not Available Not Available Not Available acetamino phen 500 mg tablet 08/29 completed Medicati on ID: 966744 B rand Name: acetamin ophen Se nd [...] mg capsule 08/29 completed Medicati on ID: 354971 B rand Name: Macrobid Send Method: E-Prescr [...] mg tablet 08/29 completed Medicati on ID: [id number] B rand Name: amitript yline Se nd Method: E-Prescr ibed Sub s Allowed: subs OK Medic ationGen ericName : amitript yline Not Available Not Available Not Available meclizine 25 mg tablet active Medicati on ID: 687791 B rand Name: meclizin e Send Method: E-Prescr ibed Sub s Allowed: subs OK Medic ationGen ericName : meclizin e Not Available Not Available Not Available baclofen 10 mg tablet 08/29 completed Medicati on ID: 549446 B rand Name: baclofen Send Method: E-Prescr ibed Sub s Allowed: subs OK Medic ationGen ericName : baclofen Not Available Not Available Not Available amlodipin e 10 mg tablet 02/06 completed Medicati on ID: 555564 B rand Name: amlodipi ne Send Method: E-Prescr ibed Sub s Allowed: subs OK Medic ationGen ericName : amlodipi ne Not Available Not Available Not Available tacrolimu s 0.1 % topical ointment APPLY TOPICALL Y TO FACE TWICE DAILY NEEDED FOR FLARES active Not Available Not Available No t Available lisinopri l 10 mg tablet 02/06 completed Medicati on ID: [id number] B rand Name: lisinopr il Send Method: E-Prescr ibed Sub s Allowed: subs OK Medic ationGen ericName : lisinopr il Not Available Not Available Not Available losartan 25 mg tablet 02/06 completed Medicati on ID: [id number] B rand Name: losartan Send Method: E-Prescr [...] mg tablet 08/29 completed Medicati on ID: 065533 B rand Name: monteluk ast Send Method: E-Prescr ibed Sub s Allowed: subs OK Medic ationGen ericName : monteluk ast Not Available Not Available Not Available fluticaso ne 100 mcg-salme terol 50 mcg/dose blistr powdr for inhalatio n 08/29 completed Medicati on ID: 638811 B rand Name: fluticas one propion- salmeter ol Send Method: E-Prescr ibed Sub s Allowed: subs OK Medic ationGen ericName : fluticas one propion- salmeter ol Not Available Not Available Not Available polyethyl tejas glycol 3350 17 gram/dose oral powder 08/29 completed Medicati on ID: 232005 B rand Name: polyethy jermaine glycol 3350 Sen d Method: E-Prescr ibed Sub s Allowed: subs OK Medic ationGen ericName : polyethy jermaine glycol 3350 Not Available Not Available Not Available albuterol sulfate HFA 90 mcg/actua tion aerosol inhaler 08/29 completed Medicati on ID: [id number] B rand Name: albutero l sulfate Send [...] %) nasal spray active Medicati on ID: 382923 B rand Name: ipratrop ium bromide Send Method: E-Prescr ibed Sub s Allowed: subs OK Medic ationGen ericName : ipratrop ium bromide Not Available Not Available Not Available loratadin e 10 mg tablet 08/29 completed Medicati on ID: 824294 B rand Name: loratadi ne Send Method: [...] as directed 08/29 completed Medicati on ID: [id number] P delfina d By Name: Mahendra Waldrop M.D. Bra nd Name: lucas pyle acetonid e oil Send Method: E-Prescr ibed [...] Updated DateTime 02/06/2025 154.94 cm 34.8 kg/m2 74905 g Conchita Ford [place] - [facility] 02/06/2025 09:38:08 Social History None recorded. Functional Status None recorded. Mental Status None recorded. Family History Nothing Reported. Medical History No medical history recorded. Gynecological HistoryNo gynecological history recorded. Obstetrics History GPAL:G 0 P 0 0 0 0 Past Encounters Encounter ID Performer Location Encounter Start Date Encounter Closed Date Diagnosis/Indication Diagnosis SNOMED-CT Code Diagnosis ICD10 Code Diagnosis IMO Codes Diagnosis Note [id number] NADIR MEZA [facility] of [address] [address] 02/06/2025 09:28:44 02/06/2025 10:09:14 Lightheadedness [id number] R42 72675 Intracrani al meningioma 551532737 D32.0 324981 Referred o talgia of right ear [id number] 802846 H92.01 M26.621 M79.11 The patient complains of [...] considered . Obstructiv e sleep apnea syndrome 86449394 G47.33 [id number] Patient is unsure if her current pressure settings are causing her throat discomfort . She will follow up with her sleep medicine provider to discuss if this can be adjusted. Disorder of brain 052680 09 G93.40 4531946 Health Concerns Section Related Observation LastModified by Organization Detai ls LastModified Time None Recorded Concern Status LastModified by Organization Details LastModified Time None Recorded Payers Encounter Date Sequence Insurance Name Policy Number Policy Downey Covered Member ID Downey Member ID Guarantor Name 02/06/2025 1 [facility] - DOS ON OR AFTER 2022 - ONE CARE (MEDICARE REPLACEMENT/ADV ANTAGE - HMO) Laisha Riggins [id number] Laisha Riggins Notes Date Note Type Note [...] physician. MRI of the brain done at [facility] on 01/25/25 incidentally showed a small [...] lightheadedness. This is being managed by her franchise consultant. MARISOL JESUS MD [address] [place] [address], [phone], [facility] - [facility] 02/07/2025 12:30:48 OBGyn Episode No OBEpisode recorded.
--- OUTSIDE RECORDS SUMMARY | 2025-05-03 10:32 | XMS_ITS | Encounter Summary ---
Author Organization [employer] Address [address] [facility] [address] [place] [address] Care Team Providers Care Band Builder Name Role Phone Olamide Chandler MD Primary Care Provide r Encounter Details Date Type Department Care Team ([facility] st Contact Info) Description 08/09/2024 Orders Only [facility] [address] [place], [place] [phone] Olamide Chandler MD [address] [place], [place] [phone] Social History Tobacco Use Types Packs/Day Years [...] Description 07/12/2025 11:15 AM EST Office Visit [facility] [address] [place] [address] Brittney Graham MD [address] [place] [address] documented as of this encounter Visit Diagnoses Not on filedocumented in this encounter Additional Health Concerns Assessment Noted Time PHQ-9 Depression Total Score: 25 024 9:17 AM EDT documented as of this encounter Care Teams Band Builder Relationship Specialty Start Date End Date Olamide Chandler MD [address] [place] [address] PCP - General Family Medicine 07/28/20 documented as of this encounter
--- OUTSIDE RECORDS SUMMARY | 2025-05-03 10:32 | XMS_ITS | Encounter Summary ---
Author Organization [employer] Address [address] [facility] 7 [place] [address] Care Team Providers Care Websphere Commerce Architect Name Role Phone Olamide Chandler MD Primary Care Provide r Reason for Visit * Reason Onset Date Comments Prior Authorization 11/28/2024 Encounter Details Date Type Department Care Team (Late st Contact Info) Description 11/28/2024 Telephone [facility] [address] [place], [place] [phone] Olamide Chandler MD [address] [place], [place] [phone] Prior Authorization (/) Social History Tobacco Use [...] Description 07/12/2025 11:15 AM EST Office Visit [facility] [address] [place], [place] [phone] Brittney Graham MD [address] [place], [place] [phone] documented as of this encounter Visit Diagnoses Not on filedocumented in this encounter Additional Health Concerns Assessment Noted Time PHQ-9 Depression Total Score: 25 024 9:17 AM EDT documented as of this encounter Care Teams Websphere Commerce Architect Relationship Specialty Start Date End Date Olamide Chandler MD [address] [place] [address] PCP - General Family Medicine 07/28/20 documented as of this encounter
--- OUTSIDE RECORDS SUMMARY | 2025-05-03 10:32 | XMS_ITS | Data Portability ---
Author Organization [employer], [facility] Address [address] [place] [address] Care Team Providers Care Internet Consultant Name Role Phone Unavailable Referring Provider HIM CCA OTHER Assessment Encounter Date Assessment Date Assessment LastModified by Organization Details LastModified Time 01/28/2023 01/28/2023 I have reviewed and agree with the assessment and plan as documented by the field nurse. I provided real time medical direction for this encounter and was immediately available to provide additional phone based assistance as needed. History as noted by field nurse. Pt with history of OA of the knees but over the last few months she has noted pain in multiple other joints particularly her shoulders and neck. No falls or trauma. No fevers or chills or know tick exposures. 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 Labs are obtained and sent to [facility] labs for CBC w/diff, ESR, CRP [...] results of the labs sent to the [facility] lab today. Pt instructed to seek medical attention right away with any worsening or new symptoms, which are reviewed with her. btils Not available 01/28/2023 15:58:43 Plan of Treatment Reminders Order Date Submit Date Provider Last Modified By Organization Details Last Modified Time Details Appointments None recorded. Lab BMP, serum or plasma 2024 025 [facility], [address] [place] [address], [place], [address] 5 08:19:04 CBC w/ auto diff 2022 023 [facility] (Centralized Electronic Ordering - All Locations), Patient Can Go To The Location Of Their Choice, [facility] 3 01:41:38 ESR (erythrocyt e sedimentati on rate), blood 2022 023 [facility] (Centralized Electronic Ordering - All Locations), Patient Can Go To The Location Of Their Choice, [facility] 3 01:48:53 C-reactive protein, quantitativ e, serum or plasma 2022 023 [facility] (Centralized Electronic Ordering - All Locations), Patient Can Go To The Location Of Their Choice, [facility] 3 02:16:13 unlisted lab - lyme disease antibody w/reflex west blot 2022 023 [facility] (Centralized Electronic Ordering - All Locations), Patient Can Go To The Location Of Their Choice, [facility] 3 09:18:28 Referral None recorded. Procedures None recorded. Surgeries None recorded. Imaging None recorded. Medication Orders lactated Ringers intravenous solution 2024 025 [id number], [address] [place] [address], [id number], 5 18:05:45 potassium chloride ER 20 mEq tablet,exte nded release 2024 025 [facility][id number], [address] [place] [address], [id number], 5 18:05:45 diclofenac 1 % topical gel 2022 023 [id number], [address] [place] [address], [id number], 15:52:21 Patient TargetsNo targets recorded. Patient InstructionsNo [...] . Testi ng perfo rmed by the EndoStim-R ad BioPl ex 2200 multi plex flow [...] Name and Address Organization Details Recorded Time 24977 calcium medicatio n Not available Not available Not available 09/19/2024 1895 RxNorm Not Available [employer] - production 15:31:46 17308 fluoxetin e medicatio n Not available Not available Not available 09/19/2024 4493 RxNorm Not Available [employer] [employer] - production 15:31:46 29414 lisinopri l medicatio n Not available Not available Not available 09/19/2024 93832 RxNorm Not Available [employer] - production 15:31:46 63672 sumatript an medicatio n Not available Not available Not available 09/19/2024 65657 RxNorm Not Available [employer] - production 5 15:31:46 Medications Name Sig [...] Available Not Available No t Available Nasal Perley (sodium chloride) 0.65 % aerosol USE 1 [...] Address Organization Details Last Updated DateTime 5 53963.4 g 1 /min 98 [degF] 157.48 cm 93 /min 96 % 96 % 141/87 mm[Hg] Not Available [facility] - production 5 17:24:24 Date Recorded Heart rate Body temperature Oxygen saturation Oxygen saturation in Arterial blood by Pulse oximetry Body weight Body height Respiratory rate Systolic And Diastolic Provider Name and Address Organization Details Last Updated DateTime 3 78 /min 97.7 [degF] 98 % 98 % 04112.2 4 g 154.94 cm 18 /min 117/80 mm[Hg] Not Available [facility] [employer] 3 15:43:00 Social History None recorded. Functional Status None recorded. Mental Status None recorded. Family History Nothing Reported. Medical History No medical history recorded. Gynecological HistoryNo gynecological history recorded. Obstetrics History GPAL:G 0 P 0 0 0 0 Past Encounters Encounter ID Performer Location Encounter Start Date Encounter Closed Date Diagnosis/Indication Diagnosis SNOMED-CT Code Diagnosis ICD10 Code Diagnosis IMO Codes Diagnosis Note [id number] Rik Dhillon MD Main - [address] [address] 01/28/2023 15:42:58 02/01/2023 14:13:30 Pain of multiple joints 47568610 M25.50 [id number] JED [facility]AGER MD [facility] [address] [place] [phone] 09/19/2024 17:18:08 09/20/2024 10:09:53 Diarrhea 86463017 R19.7 Evaluation in the field was performed by my field nurse colleague, as noted above, I provided real-time [...] Downey Member ID Guarantor Name 10/12/2024 1 [facility] - DOS ON OR AFTER 2022 - DUAL ELIGIBLE - ASSISTED OPTIONS AND ONE CARE (MEDICARE REPLACEMENT/ADV ANTAGE - HMO) Laisha Riggins [id number] Laisha Riggins Notes Date Note Type Note Provider Name and Address Organization Details Recorded Time 01/28/2023 text/html ROS as noted in the HPI This was a supervised home visit with field nurse Neisha Copeland. HPI: Call to Laisha Dan, [...] ...................... ...................... ...................... ...................... ...................... ...................... ......... Keno Writer / Runner Note From Neisha Copeland: Sent to a [...] resolve on their own. 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 [...] noted (pt states this is baseline); Skin: [place], warm, dry; Rapid covid test: neg; [facility] consulted and orders bloodwork to be taken to [facility]. sends script to pt's pharmacy for Diclofenac gel. [facility] Venous blood draw performed, and blood samples obtained to take to [facility]. Red flags discussed. Pt has no further questions. ...................... ...................... ...................... ...................... ...................... ...................... ......... Disposition: Fulfilled Rik Dhillon MD [address] [facility],[address], [place], [address], [employer] 01/28/2023 16:56:47 09/19/2024 text/html ROS as noted [...] at 09/19/2024 - 15:31 Comments: HPI reviewed Keno Writer / Runner Organization Information for Michael Sanchez Rere Legal Name: [facility] Transportation Address: [address] [place] [address], [place] [address], Manufacturing Assembler: Zeferino Burton MD CLIA No.: [id number] Keno Writer / Runner POC Test Results from Michael Sanchez Virgil GUPTA [facility] (17:48:47) pH: 7.398 pH units pCO2: 46.2 mmHg pO2: 26.7 mmHg Na: 140 mmol/L K: 3.5 mmol/L iCa: 1.17 mmol/L Cl: 103 mmol/L TCO2: 27.7 mEq/L Hct: 41 % Hb: 13.8 g/dL Glu: 111 mg/dL Lac: 0.80 mmol/L Cr: 0.80 mg/dL BUN: 13 mg/dL A mmol/L HCO3: 28.5 mmol/L ...................... ...................... ...................... ...................... ...................... ...................... ......... Keno Writer / Runner Note From Michael Sanchez: Patient alert and [...] increase work of breathing positive full sentences. [facility] orders EPO data, LR1L IV now, potassium 40 MEQ PO now and to follow up with PCP. Medication administered as ordered without complication using five rights. Patient reports relief of headache after fluid administration. Red flags patient education discussed. [facility] Lab Orders: BMP, serum or plasma: Performed [facility] Medication Orders: lactated Ringers intravenous solution: Administered potassium chloride ER 20 mEq tablet,extended release: Administered ...................... ...................... ...................... ...................... ...................... ...................... ......... [facility] Consulted: Jed Yeager ...................... ...................... ...................... ...................... ...................... ...................... ......... Disposition: Fulfilled JED YEAGER MD [address] [facility], [place], [address], [employer], [facility] 09/19/2024 23:31:45 OBGyn Episode No OBEpisode recorded.
--- OUTSIDE RECORDS SUMMARY | 2025-05-03 10:32 | XMS_ITS | Encounter Summary ---
Author Organization [employer] Address [address] [facility] 7 [place] [address] Care Team Providers Care Cmm Technician Name Role Phone Olamide Chandler MD Primary Care Provide r Reason for Visit * Reason Onset Date Comments Med Refill 01/07/2025 Encounter Details Date Type Department Care Team ([facility] st Contact Info) Description 01/07/2025 Telephone [facility] [address] [place], [place] [phone] Olamide Chandler MD [address] [place], [place] [phone] Med Refill Social History Tobacco Use Types [...] MG/0.5ML solution auto-injector [id number] [place] - [address] [place] [address] [facility] documented in this encounter Plan of Treatment Upcoming Encounters Date Type Department Care Team ([facility] st Contact Info) Description 07/12/2025 11:15 AM EST Office Visit [facility] [address] [place] [phone] Brittney Graham MD [address] [place] [address] documented as of this encounter Visit Diagnoses Diagnosis Class 3 severe obesity due to excess calories with serious comorbidity and body mass index (BMI) of 45.0 to 49.9 in adult (HCC) documented in this encounter Additional Health Concerns Assessment Noted Time PHQ-9 Depression Total Score: 25 024 9:17 AM EDT documented as of this encounter Care Teams Cmm Technician Relationship Specialty Start Date End Date Olamide Chandler MD [address] [place] [address] PCP - General Family Medicine 07/28/20 documented as of this encounter
--- OUTSIDE RECORDS SUMMARY | 2025-05-03 10:32 | XMS_ITS | Clinical Summary ---
Author Organization [facility] Address [address] [place] [address] Phone Care Team Providers Care Vertica Architect Name Role Phone Unavailable Primary Care Provider [...] Screening 08/26/2023 Depression Screening 06/20/2024 COVID-19 Vaccine (2024- season) 2025 10/28/2023, 06/22/2021, 09/10/2020, Additional history exists Influenza Vaccine (#1) 2025 , 03/12/2022, 04/08/2021, Additional history exists Hypertension/CHF/CAD Annual BMP Blood Test 01/11/2026 01/11/2025, 01/02/2025 DTaP,Tdap,and Td Vaccines (9 - Td or Tdap) 05/31/2034 05/31/2024, 03/13/2014, 10/11/2007, Additional history exists MMR Vaccines Completed 08/12/1978, 01/28/1978 IPV Vaccines Completed 09/10/1983, 07/21, 08/03/1978, Additional history exists Hepatitis A Vaccines Aged Out 12/07/2017, 05/18/20 16 No longer eligible based on patient's [...]
--- OUTSIDE RECORDS SUMMARY | 2025-05-03 10:32 | XMS_ITS | Encounter Summary ---
Author Organization [employer] Address 75 [facility] 7 [place] [address] Care Team Providers Care Net Development Manager Name Role Phone Olamide Chandler MD Primary Care Provide r Reason for Visit * Reason Onset Date Comments Pre-visit Planning 03/02/2024 Encounter Details Date Type Department Care Team ([facility] st Contact Info) Description 03/02/2024 Telephone [facility] MEDICINE [address] [place], [place] [phone] Olamide Chandler MD [address] [place], [place] [phone] Pre-visit Planning Social History Tobacco Use Types [...] Description 07/12/2025 11:15 AM EST Office Visit [facility] [address] [place] [address] Brittney Graham MD [address] [place] [address] documented as of this encounter Visit Diagnoses Not on filedocumented in this encounter Additional Health Concerns Assessment Noted Time PHQ-9 Depression Total Score: 18 024 9:06 AM EST documented as of this encounter Care Teams Net Development Manager Relationship Specialty Start Date End Date Olamide Chandler MD [address] [place] [phone] PCP - General Family Medicine 07/28/20 documented as of this encounter
--- OUTSIDE RECORDS SUMMARY | 2025-05-03 10:32 | XMS_ITS | Encounter Summary ---
Author Organization [employer] Address 75 [facility] 7t [place] [address] Care Team Providers Care Oxygraph Operator Name Role Phone Olamide Chandler MD Primary Care Provide r Encounter Details Date Type Department Care Team (Late Contact Info) Description 09/01/2022 Orders Only [facility] MEDICINE [address] [place] [phone] Renée Okeefe [place] Social History Tobacco Use [...] 11:15 AM EST Office Visit [facility] MEDICINE [address] [place] [phone] Brittney Graham MD [address] [place] [address] documented as of this encounter Procedures Procedure [...] AM EDT) Color Urine Yellow [facility] Appearance Urine Clear [facility] PH 6.0 5.0 - 9.0 [facility] Glucose Urine UA Negative Negative mg/dL [facility] Urine Blood Negative Negative [facility] Specific [place] - Urine <=1.005 1.005 - 1.025 [facility] Urine Protein Negative Neg-Trace mg/dL [facility] Urine Ketones Negative Negative mg/dL [facility] Nitrite Urine Negative Negative [facility] Leukocyte Esterase Urine Trace(A) Negative [facility] RBC Urine 0-2 0 - 2 /HPF [facility] Urine WBC 0-5 0 - 5 /HPF [facility] Urine Squamous Epithelial Cell 0-2 0 - 2 /HPF [facility] Urine Bacteria None Seen None Seen [facility] Hyaline Casts, Urine 0-2 0 - 2 /LPF [facility] 04/17/2023 1:20 AM EDT 04/17/2023 1:23 AM EDT Narrative [facility] - 04/17/2023 1:42 AM EDT [id number], Clean Catch us [facility] External Provider LAB URI NE ORDERABLES Final Result Performing Organization Address [facility]/ZIP Co de Phone Number [facility] [address] [place] [phone] [phone] * B Type Natriuretic Peptide (BNP) (04/17/2023 12:46 AM EDT) B Type Natriuretic Peptide 44 <100 pg/mL [facility] Comment:For those patients w ho are being treated with Natrecor(nesiritide, recombinant BNP), BNP testing should beperformed at least two hours post treatment in order toensure that only endogenous levels of BNP are detected. 04/17/2023 12:4 6 AM EDT 04/17/2023 12:53 AM EDT [facility] External Provider LAB BLO OD ORDERABLES Final Result Performing Organization Address [facility] Co de Phone Number [facility] [address] [place] [address] [phone] * BI Mammogram Screening Tomosynthesis Bilateral (09/09/2022 8:30 AM EDT) Anatomical Region Laterality Modality Breast Bilateral Mammography 09/09/2022 8:30 AM EDT Narrative 09/10/2022 11:56 AM EDT [facility] [address] [place] [address] Mammography Report Signed Patient: Laisha Ye I MR#: M [id number] : 1970 Acct:[id number] Age/Sex: 51 / F ADM Date: 09/09/22 Loc: HO.MAMMO Attending Dr: Olamide Stevens MD Ordering Physician: Olamide Chandler MD Results: 1Negative Date of Service: 09/09/22 Follow Up: 1 Year From Orig inal Mammogram Procedure(s): MM tomosynthesis screening BI Accession Number(s): [id number] cc: Olamide Chandler MD EXAMINATION: MM SCREENING [...] in OV> 09/10/22 1153 DD/ 0830 TD/TT: Bed Setter: SK Procedure Note Donotuseinterpreter, Image - 09/10/2022 [facility] [address] [place], [place] [address] Mammography Report Signed Patient: Laisha Ye IMR#: M [id number] : 1970Acct:[id number] Age/Sex: 51 / FADM Date: 09/09/22 Loc: HO.MAMMO Attending Dr: Olamide Stevens MD Ordering Physician: Olamide Chandler MDResults: 1Negative Date of Service: 09/09/22Follow Up: 1 Year From Orig inal Mammogram Procedure(s): MM tomosynthesis screening BI Accession Number(s): [id number] cc: Olamide Chandler MD EXAMINATION: MM SCREENING [...] in OV> 09/10/22 1153 DD/ 0830 TD/TT: Bed Setter: SAURAV [facility] External Provider IMG BI PROCEDURES Edited Result - Final documented in this encounter Visit Diagnoses Not on filedocumented in this encounter Care Teams Oxygraph Operator Relationship Specialty Start Date End Date Olamide Chandler MD [address] [place] [phone] PCP - General Family Medicine 07/28/20 documented as of this encounter
--- OUTSIDE RECORDS SUMMARY | 2025-05-03 10:32 | XMS_ITS | Encounter Summary ---
Author Organization [employer] Address 75 [facility] 7t [place] [address] Care Team Providers Care Dry Starch Operator Name Role Phone Olamide Chandler MD Primary Care Provide r Encounter Details Date Type Department Care Team ([facility] st Contact Info) Description 03/07/2025 Telephone [facility] MEDICINE [address] [place], [place] [phone] Olamide Chandler MD [address] [place], [place] [phone] Social History Tobacco Use Types Packs/Day Years [...] Description 07/12/2025 11:15 AM EST Office Visit [facility] MEDICINE [address] [place] [address] Brittney Graham MD [address] [place] [address] documented as of this encounter Visit Diagnoses Not on filedocumented in this encounter Additional Health Concerns Assessment Noted Time PHQ-9 Depression Total Score: 25 024 9:17 AM EDT documented as of this encounter Care Teams Dry Starch Operator Relationship Specialty Start Date End Date Olamide Chandler MD [address] [place] [address] PCP - General Family Medicine 07/28/20 documented as of this encounter
--- OUTSIDE RECORDS SUMMARY | 2025-05-03 10:32 | XMS_ITS | Encounter Summary ---
Author Organization [employer] Address 75 [facility] 7 [place] [address] Care Team Providers Care Cargo Worker Name Role Phone Olamide Chandler MD Primary Care Provide r Reason for Visit * Reason Onset Date Comments Med Refill 12/04/2024 Encounter Details Date Type Department Care Team ([facility] st Contact Info) Description 12/04/2024 Telephone [facility] MEDICINE [address] [place], [place] [phone] Olamide Chandler MD [address] [place], [place] [phone] Med Refill Social History Tobacco Use Types [...] Please review and resubmit Contact pt at [phone] Need freezing room worker * Telephone Encounter - Bea Escobar LPN - 12/04/2024 2:48 PM EDT Medication was sent to [facility][id number] today. * Telephone Encounter - Joselyn Boyer - 12/04/2024 2:46 PM EDT TC from pt requesting medication refill. Medications needing refill : Zepbound 2.5 MG/0.5ML solution auto-injector To be sent to: [id number] - [place] [address] [place] [facility] [place] signed by Joselyn Boyer at 12/04/2024 2:46 PM EDT documented in this encounter Plan of Treatment Upcoming Encounters Date Type Department Care Team (Late st Contact Info) Description 07/12/2025 11:15 AM EST Office Visit [facility] MEDICINE [address] [place] [address] Brittney Graham MD [address] [place], [place] [phone] documented as of this encounter Visit Diagnoses Not on filedocumented in this encounter Additional Health Concerns Assessment Noted Time PHQ-9 Depression Total Score: 25 024 9:17 AM EDT documented as of this encounter Care Teams Cargo Worker Relationship Specialty Start Date End Date Olamide Chandler MD [address] [place] [address] [phone] PCP - General Family Medicine 07/28/20 documented as of this encounter
[2025-05-03 10:53] VITALS: PULSE 78
== END 2025-05-03 09:33 | disposition home or self-care (01) ==
LOC: HO.RESP 09:32
PROVIDERS: PCP Internal Medicine; Visit Provider Internal Medicine
DX: R06.00 Dyspnea, unspecified (principal)
CPT/HCPCS: 94060; 94640; 94727; 94729

== ENCOUNTER → 2025-05-03 10:11 | Outpatient (BNV) | payer OTHER, SELFPAY | PROVIDERS: PCP Internal Medicine; Visit Provider Hospitalist | DX: J98.4 Other disorders of lung (principal) | CPT/HCPCS: 94060; 94727; 94729 ==

== ENCOUNTER 2025-05-08 09:00 | Outpatient (RCR) | payer OTHER, SELFPAY ==
[2025-04-16 10:59] VITALS: BP 153/78; PULSE 81
== END 2025-06-17 09:38 | disposition home or self-care (01) ==
LOC: HO.PT 09:00
PROVIDERS: PCP Internal Medicine; Visit Provider Internal Medicine
DX: R42 Dizziness and giddiness (principal)
CPT/HCPCS: 97112; 97162

== ENCOUNTER → 2025-05-22 14:30 | Outpatient (BNV) | payer OTHER, SELFPAY | PROVIDERS: PCP Internal Medicine; Visit Provider Internal Medicine | DX: N63.21 Unspecified lump in the left breast, upper outer quadrant (principal) | CPT/HCPCS: 76642; 77065; G0279 ==

== ENCOUNTER 2025-05-22 14:39 | Outpatient (REF) | payer OTHER, SELFPAY ==
--- NOTE | ~2025-05-22 | MM_ITS ---
EXAMINATION: MM DIAGNOSTIC DIGITAL BREAST TOMOSYNTHESIS, LEFT CLINICAL INFORMATION: 6 month follow-up for focal asymmetry in the left breast with associated hyperechoic area on ultrasound. COMPARISON: Mammography: Prior imaging on PACS. TECHNIQUE: Digital breast tomosynthesis is performed in both the craniocaudal and mediolateral oblique views along with computer-aided detection (CAD). Synthesized 2D images are generated from the tomosynthesis. FINDINGS: There are scattered areas of fibroglandular density. Focal asymmetry in the upper outer breast anterior depth similar-appearing to prior's. No suspicious calcifications or other abnormal findings. Targeted color Doppler ultrasound scanning in the left breast at 1:00 1 cm from nipple demonstrates a heterogeneous hyperechoic oval mass measuring 8 x 4 x 7 mm probable correlate for the focal asymmetry on mammography. MM/MM tomosynthesis diagnostic LT IMPRESSION: Heterogeneous hyperechoic mass on ultrasound 1:00 1 cm from the nipple probable correlate for focal asymmetry on mammography. Recommend ultrasound-guided core needle biopsy at this time for confirmation. The findings and recommendations were discussed with the patient the procedure will be scheduled. ASSESSMENT: BI-RADS Category 4: Suspicious RECOMMENDATION: Biopsy recommended Results were discussed with the patient at time of visit. Electronically signed by: Deana Shafer DO 05/23/2025 09:16 AM RYANN
--- OUTSIDE RECORDS SUMMARY | 2025-05-22 17:36 | XMS_ITS | Encounter Summary ---
Author Organization [employer] Address 75 [facility] 7t [place] [address] Care Team Providers Care Pharmacy Ancillary Name Role Phone Olamide Chandler MD Primary Care Provide r Reason for Visit * Reason Comments Med Refill Encounter Details Date Type Department Care Team (Late st Contact Info) Description 11/03/2024 Refill [facility] MEDICINE [address] [place], [place] [phone] Olamide Chandler MD [address] [place], [place] [phone] Class 3 severe obesity due to excess [...] 07/12/2025 11:15 AM EST Office Visit [facility] MEDICINE [address] [place] [phone] Brittney Graham MD [address] [place] [address] documented as of this encounter Visit Diagnoses Diagnosis Class 3 severe obesity due to excess calories with serious comorbidity and body mass index (BMI) of 45.0 to 49.9 in adult (HCC) documented in this encounter Additional Health Concerns Assessment Noted Time PHQ-9 Depression Total Score: 25 024 9:17 AM EDT documented as of this encounter Care Teams Pharmacy Ancillary Relationship Specialty Start Date End Date Olamide Chandler MD [address] [place] [address] PCP - General Family Medicine 07/28/20 documented as of this encounter
--- OUTSIDE RECORDS SUMMARY | 2025-05-22 17:36 | XMS_ITS | Encounter Summary ---
Author Organization [facility] Address 75 [facility] 7t [place] [address] Care Team Providers Care [employer] Consultant Name Role Phone Olamide Chandler MD Primary Care Provide r Encounter Details Date Type Department Care Team (Late st Contact Info) Description 10/19/2024 Orders Only [facility]S [address] [place] [address] Provider, MD Maurisio Social History Tobacco Use [...] Description 07/12/2025 11:15 AM EST Office Visit [facility] MEDICINE [address] [place] [address] Brittney Graham MD [address] [place], [place] [phone] documented as of this encounter Procedures Procedure [...] AM EDT Narrative 11/14/2024 3:08 PM EDT [facility]'s [address] [place] [address] Ultrasound Report Signed Patient: Laisha Ye I MR#: M [id number] : 1970 Acct:[id number] Age/Sex: 54 / F ADM Date: 11/14/24 Loc: HO.MAMMO Attending Dr: Olamide Stevens MD Ordering Physician: Olamide Chandler MD Date of Service: 11/14/24 Procedure(s): US breast LT limited mamm only Accession Number(s): [id number] cc: Olamide Chandler MD EXAMINATION: MM DIAGNOSTIC [...] 11/14/24 1505 DD/ 1100 TD/TT: 11/14/24 1100 Wool Washer: Procedure Note Donotuseinterpreter, Image - 11/14/2024 [facility] [address] [place], [place] [address] Ultrasound Report Signed Patient: Laisha Ye IMR#: M [id number] : 1970Acct:[id number] Age/Sex: 54 / FADM Date: 11/14/24 Loc: HO.MAMMO Attending Dr: Olamide Stevens MD Ordering Physician: Olamide Chandler MD Date of Service: 11/14/24 Procedure(s): US breast LT limited mamm only Accession Number(s): [id number] cc: Olamide Chandler MD EXAMINATION: MM DIAGNOSTIC [...] 11/14/24 1505 DD/ 1100 TD/TT: 11/14/24 1100 Wool Washer: us Olamide Stevens MD IMG US PROCEDURES Fin al Result * BI Mammogram Diagnostic Tomosynthesis added left (11/14/2024 10:30 AM EDT) Anatomical Region Laterality Modality Breast Left Mammography 11/14/2024 10:3 0 AM EDT Narrative 11/14/2024 3:08 PM EDT [facility] [address] [place] [address] Mammography Report Signed Patient: Laisha Ye I MR#: [id number] : 1970 Acct:[id number] Age/Sex: 54 / F ADM Date: 11/14/24 Loc: HO.MAMMO Attending Dr: Olamide Stevens MD Ordering Physician: Olamide Chandler MD Results: 3.6MProbably Benign Finding - Short 6 M F/U Suggested Date of Service: 11/14/24 Follow Up: 6 Month F/U Procedure(s): MM tomosynthesis added views L Accession Number(s): [id number] cc: Olamide Chandler MD EXAMINATION: MM DIAGNOSTIC [...] 11/14/24 1505 DD/ 1030 TD/TT: 11/14/24 1100 Wool Washer: Procedure Note Donotuseinterpreter, Image - 11/14/2024 [facility] [address] [place] [address] [place] [address] Mammography Report Signed Patient: Laisha Ye [facility]#: [id number] : 1970Acct:[id number] Age/Sex: 54 / FADM Date: 11/14/24 Loc: HO.MAMMO Attending Dr: Olamide Stevens MD Ordering Physician: Olamide Chandler MD Results: 3.6MProbably Benign Finding - Short 6 M F/U Suggested Date of Service: 11/14/24Follow Up: 6 Month F/U Procedure(s): MM tomosynthesis added views L Accession Number(s): [id number] cc: Olamide Chandler MD EXAMINATION: MM DIAGNOSTIC [...] 11/14/24 1505 DD/ 1030 TD/TT: 11/14/24 1100 Wool Washer: us Olamide Stevens MD IMG BI PROCEDURES Fin al Result * Hm Colonoscopy (04/12/2022 10:07 PM EDT) us Historical Provider HEALTH MAINTENANCE Final Result documented in this encounter Visit Diagnoses Not on filedocumented in this encounter Additional Health Concerns Assessment Noted Time PHQ-9 Depression Total Score: 024 9:17 AM EDT documented as of this encounter Care Teams [employer] Consultant Relationship Specialty Start Date End Date Olamide Chandler MD [address] [place] [address] PCP - General Family Medicine 07/28/20 documented as of this encounter
--- OUTSIDE RECORDS SUMMARY | 2025-05-22 17:36 | XMS_ITS | Continuity of Care Document ---
Author Name [employer] [facility] Address [address] [place] [address] Organization Unknown Address [address] [place] [address] Medications No known medications Problems No known problems
--- OUTSIDE RECORDS SUMMARY | 2025-05-22 17:36 | XMS_ITS | Encounter Summary ---
Author Organization [employer] Address 75 [facility] 7t [place] [address] Care Team Providers Care House Wrecker Name Role Phone Olamide Chandler MD Primary Care Provide r Encounter Details Date Type Department Care Team ([facility] st Contact Info) Description 12/04/2024 Orders Only [facility] MEDICINE [address] [place], [place] [phone] Olamide Chandler MD [address] [place], [place] [phone] Social History Tobacco Use Types Packs/Day Years [...] Description 07/12/2025 11:15 AM EST Office Visit [facility] MEDICINE [address] [place] [address] Brittney Graham MD [address] [place] [address] documented as of this encounter Visit Diagnoses Not on filedocumented in this encounter Additional Health Concerns Assessment Noted Time PHQ-9 Depression Total Score: 25 024 9:17 AM EDT documented as of this encounter Care Teams House Wrecker Relationship Specialty Start Date End Date Olamide Chandler MD [address] [place] [address] PCP - General Family Medicine 07/28/20 documented as of this encounter
--- OUTSIDE RECORDS SUMMARY | 2025-05-22 17:36 | XMS_ITS | Continuity of Care Document ---
Author Organization [employer] [facility], [facility] Address [address] [place] [address] Care Team Providers Care Incident Response Lead Name Role Phone Unavailable Referring Provider HIM CCA OTHER Assessment Encounter Date Assessment Date Assessment LastModified by Organization Details LastModified Time 05/09/2025 05/09/2025 I provided real -time medical direction via phone for this encounter and was available for additional phone-based assistance as needed. I have reviewed and agree with the Assessment and Plan as documented by the Locomotive Repairer Diesel. Patient given the opportunity to ask questions. Our service contacted for an assessment of: Viral URI symptoms As per above, patient with approximately several days of viral URI symptoms. Denies fever or chills. Denies chest pain, shortness of breath, dyspnea on exertion. Positive nasal congestion and dry cough. Positive sick contacts. Per facility manager on the scene, vital signs are stable and patient is afebrile. No wheezing heard on exam. COVID and Flu are both negative. No increased work of breathing and no distress. Impression: Common cold and viral URI Plan: Continue with [id number]-[id number] medications to control symptoms. Red flags discussed as to when to seek a higher level care. Allergies: Reviewed PCP f/u: We discussed the diagnostic uncertainty of home visits and the risk associated with this. In this case, the patient and I felt this to be an acceptable and reasonable amount of risk given the benefit of avoiding an ED visit. We discussed the need to seek care urgently/emergen tly in the setting of any new or worsening serious symptoms, particularly fever chills [email or web address] Not available 05/09/2025 13:46:06 Plan of Treatment Reminders Order Date Submit Date Provider Last Modified By Organization Details Last Modified Time Details Appointments None recorded. Lab rapid SARS CoV 2 Ag, QL IA, respiratory specimen 2024 025 [facility], [address] [place] [address], [phone] 5 14:34:48 rapid flu (A+B) 2024 025 [facility], [address] [place] [address], [id number] 5 14:34:28 Referral None recorded. Procedures None recorded. Surgeries None recorded. Imaging None recorded. Medication Orders None recorded. Patient TargetsNo targets recorded. Patient InstructionsNo instructions recorded. Reason for Referral None Reported. Results Created Date Observation Date Name Description Value Unit Range Abnormal Flag Note LastModifiedBy Organization Detail LastModifiedTime 05/09/2005/09/2025 rapid flu (A+B) Flu negati ve Not Available [address], [phone] 05/09/2025 13:45:43 05/09/2005/09/2025 rapid SARS CoV 2 Ag, QL IA, respi rator y speci men rapid SARS CoV 2 Ag, QL IA, respiratory specimen negati ve Not Available [address], [address] 05/09/2025 13:45:41 Result Notes None recorded. Medical Equipment None Reported. Allergies Allergen ID Allergen Name Allergen Category Reaction Reaction Severity Criticality Documentation Date Start Date Code Code System Note Provider Name and Address Organization Details Recorded Time 99571 calcium medicatio n Not available Not available Not available 09/19/2024 1895 RxNorm Not Available [facility] - production 15:31:46 13370 fluoxetin e medicatio n Not available Not available Not available 09/19/2024 4493 RxNorm Not Available [facility] - production 15:31:46 45291 lisinopri l medicatio n Not available Not available Not available 09/19/2024 63578 [facility] Available [facility] 15:31:46 76949 sumatript an medicatio n Not available Not available Not available 09/19/2024 24921 RxNorm Not Available [facility] - production 15:31:46 calcium carbonate medicatio n Not available Not available Not available 05/09/20252020 1897 RxNorm Other react ion(s ): Hives Not Available [employer] - prod 15:31:54 cinnamon preparati on food,medi cation other Not available Not available 05/09/20252019 94826 5 RxNorm Not Available [facility] - External Data [employer] - prod 15:31:54 soybean oil environme nt,food,m edication Not available Not available Not available 05/09/20252020 9949 RxNorm Not Available [facility] - External Data Service - prod 15:31:54 Prozac medicatio n Not available Not available Not available 05/09/2025 32534 RxNorm Not Available [facility] [facility] [employer] - prod 15:31:56 Tums medicatio n Not available Not available Not available 05/09/2025 76245 8 RxNorm Not Available [facility] - External Data Service - prod 15:31:56 Medications Name Sig Start Date Stop Date [...] Available Not Available No t Available Nasal [place] (sodium chloride) 0.65 % aerosol USE 1 [...] No t Available Vitals Date Recorded Body temperature Body weight Respiratory rate Oxygen saturation Body height Heart rate Systolic And Diastolic Provider Name and Address Organization Details Last Updated DateTime 5 98.4 [degF] 01794.6 64 g 18 /min 100 % 154.94 cm 70 /min 146/96 mm[Hg] Not Available [facility] - production 5 13:44:48 Social History None recorded. Functional Status None recorded. Mental Status None recorded. Family History Nothing Reported. Medical History No medical history recorded. Gynecological HistoryNo gynecological history recorded. Obstetrics History GPAL:G 0 P 0 0 0 0 Past Encounters Encounter ID Performer Location Encounter Start Date Encounter Closed Date Diagnosis/Indication Diagnosis SNOMED-CT Code Diagnosis ICD10 Code Diagnosis IMO Codes Diagnosis Note [id number] Brianna Salazar MD [facility] ED Medical [address] [phone] 05/09/2025 13:44:42 05/10/2025 10:08:29 Common cold [id number] J00 61244 Health Concerns Section Related Observation LastModified by Organization Detai ls LastModified Time None Recorded Concern Status LastModified by Organization Details LastModified Time None Recorded Payers Encounter Date Sequence Insurance Name Policy Number Policy Downey Covered Member ID Downey Member ID Guarantor Name 05/09/2025 1 [facility] - DOS ON OR AFTER 2022 - DUAL ELIGIBLE - CARE HOME OPTIONS AND ONE CARE (MEDICARE REPLACEMENT/ADV ANTAGE - HMO) Laisha Riggins [id number] Laisha Riggins Notes Date Note Type Note Provider Name and Address Organization Details Recorded Time 05/09/2025 text/html [facility] Nurse Triage Notes (Meseret Negro): Reason For Request: runny nose/dizzy Patient Reports: History of asthma, increased use of inhaler; Shortness of breath with exertion Denies: Increased work of breathing/labored with or without fever Unable to speak in full sentences without distress Discoloration of skin -cyanosis Needs to sleep sitting up, can t catch breath Shortness of breath in setting of confusion Cough, fever greater than 2 days Chief Complaints: Common Cold PMH: COPD/Asthma, Hypertension, Asthma, Gastroesophageal Reflux Disease (GERD), Fibromyalgia PMH Reviewed at 05/09/2025 - :38 (ET) Allergies Reviewed at 05/09/202538 (ET) Comments: 54 y.o female complains of Common Cold Pt has c/o of runny nose that just started today as well as a headache. She does have chronic body aches. She does not have cough, Mild shortness of breath , but has asthma, has not been using her inhalers, She is talking in full sentences and no wheeze. She does have chronic dizziness but feels it is different today ', she feels that it is due to carvedilol. She only has one kidney so she is worried about taking any meds, she was born this way. She has not taken anything OTC. she feels warm, no chills I provided information on the mobile health provider response time and advised the patient and/or caregiver to monitor reported signs and symptoms. I discussed the warning signs of when to seek emergency care. [employer]ocom[employer] Organization Information for Huan Chau [employer] Name: [employer]. Address: [address] [place] [address], [place] Head: Bacilio Henderson MD CLIA No.: [id number] [employer]ocom[employer] POC Test Results from [facility] [employer] Rapid COVID antigen (13:31:17) COVID: - Attachments uploaded as part of this test result can be found under Documents section. Rapid influenza antigen (13:31:18) Flu: - ...................... ...................... ...................... ...................... ...................... ...................... ......... 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 Upon arrival on scene, pt answers the door and invites [facility] inside her well-kept apartment she shares w/ her . She is generally well-appearing and NAD is noted. She is moving through her home unencumbered and speaking in full and complete sentences. Pt sits on the sofa for evaluation and is endorsing feeling unwell today. She says her was dx w/ a URI several days ago and they have been in close quarters running errands and decorating the past few days and this morning pt awoke w/ a scratchy and sore throat, runny nose, and has now developed a FAULKNER. She is denying cp, sob, n/v/d, fevers/chills, but does endorse some achiness that is somewhat different than her fibromyalgia pain. She says she is eating and drinking fine and has medication for fevers and fluids for hydration. She says she has white coat syndrome so she knows her blood pressure will be high. Ddx: URI, COVID/flu, viral infection [facility] swabs pt for COVID/flu and vital signs are obtained. Pt is hypertensive, afebrile, and not hypoxic. Head is atraumatic and normocephalic. Sclera are clear and extra ocular movements are intact. Neck is supple and trachea is midline. No stridor or sonorous respirations are present and lung sounds are clear to auscultation. Heart tones are strong and regular w/ no clicks or rubs present. COVID/flu results are negative. [facility] discusses supportive care w/ pt to include Tylenol or ibuprofen for fevers and body aches and plenty of fluids and rest. [facility] informs pt to call back in a few days if her symptoms get much worse and [facility] can test her again for COVID/flu. [facility] contacts [facility] and discusses the above. [facility] agrees to supportive care plan and revisit if necessary. [facility] informs pt to seek emergency care if she gets severe SOB, develops CP, high fever, or uncontrolled n/v/d. Pt gives her verbal understanding and is left in stable condition. [facility] is clear. Report completed by VANESSA Chau [id number]. [facility] Lab Orders: rapid SARS CoV 2 Ag, QL IA, respiratory specimen: Performed rapid flu (A+B): Performed ...................... ...................... ...................... ...................... ...................... ...................... ......... [facility] Consulted: Brianna Salazar ...................... ...................... ...................... ...................... ...................... ...................... ......... Disposition: Fulfilled Brianna Salazar MD [address] [place] [address],[address], [place], [address], [employer] 05/10/2025 08:46:54 OBGyn Episode No OBEpisode recorded.
--- OUTSIDE RECORDS SUMMARY | 2025-05-22 17:36 | XMS_ITS | Encounter Summary ---
Author Organization [employer] Address [address] [facility] [address] [place] [address] Care Team Providers Care Composite Engineer Name Role Phone Olamide Chandler MD Primary Care Provide r Encounter Details Date Type Department Care Team ([facility] Contact Info) Description 08/18/2022 Telephone [facility] [address] [place], [place] [phone] Olamide Chandler MD [address] [place], [place] [phone] Social History Tobacco Use Types Packs/Day Years [...] Office Visit [facility] [address] [place] [address] Brittney Graham MD [address] [place] [address] documented as of this encounter Visit Diagnoses Not on filedocumented in this encounter Care Teams Composite Engineer Relationship Specialty Start Date End Date Olamide Chandler MD [address] [place] [address] PCP - General Family Medicine 07/28/20 documented as of this encounter
--- OUTSIDE RECORDS SUMMARY | 2025-05-22 17:36 | XMS_ITS | Encounter Summary ---
Author Organization [employer] Address [address] [facility] [address] [place] [address] Care Team Providers Care Mammography Technician Name Role Phone Olamide Chandler MD Primary Care Provide r Encounter Details Date Type Department Care Team ([facility] st Contact Info) Description 08/09/2024 Orders Only [facility] MED[facility]INE [address] [place], [place] [phone] Olamide Chandler MD [address] [place], [place] [phone] Social History Tobacco Use Types Packs/Day Years [...] Description 07/12/2025 11:15 AM EST Office Visit [facility]INE [address] [place] [address] Brittney Graham MD [address] [place] [address] documented as of this encounter Visit Diagnoses Not on filedocumented in this encounter Additional Health Concerns Assessment Noted Time PHQ-9 Depression Total Score: 25 024 9:17 AM EDT documented as of this encounter Care Teams Mammography Technician Relationship Specialty Start Date End Date Olamide Chandler MD [address] [place] [address] PCP - General Family Medicine 07/28/20 documented as of this encounter
--- OUTSIDE RECORDS SUMMARY | 2025-05-22 17:36 | XMS_ITS | Encounter Summary ---
Author Organization [employer] Address [address] [facility] [address] [place] [address] Care Team Providers Care Retail Personal Banker Name Role Phone Olamide Chandler MD Primary Care Provide r Reason for Visit * Reason Onset Date Comments Prior Authorization 11/28/2024 Encounter Details Date Type Department Care Team (Late st Contact Info) Description 11/28/2024 Telephone [facility] MED[facility]INE [address] [place], [place] [phone] Olamide Chandler MD [address] [place], [place] [phone] Prior Authorization (/) Social History Tobacco Use [...] Description 07/12/2025 11:15 AM EST Office Visit [facility] [address] [place], [place] [phone] Brittney Graham MD [address] [place], [place] [phone] documented as of this encounter Visit Diagnoses Not on filedocumented in this encounter Additional Health Concerns Assessment Noted Time PHQ-9 Depression Total Score: 25 024 9:17 AM EDT documented as of this encounter Care Teams Retail Personal Banker Relationship Specialty Start Date End Date Olamide Chandler MD [address] [place] [address] PCP - General Family Medicine 07/28/20 documented as of this encounter
--- OUTSIDE RECORDS SUMMARY | 2025-05-22 17:36 | XMS_ITS | Encounter Summary ---
Author Organization [employer] Address [address] [facility] [address] [place] [address] Care Team Providers Care Pens And Pencils Dipper Name Role Phone Olamide Chandler MD Primary Care Provide r Reason for Visit * Reason Onset Date Comments Pre-visit Planning 03/02/2024 Encounter Details Date Type Department Care Team ([facility] st Contact Info) Description 03/02/2024 Telephone [facility] MED[facility]INE [address] [place], [place] [phone] Olamide Chandler MD [address] [place], [place] [phone] Pre-visit Planning Social History Tobacco Use Types [...] Description 07/12/2025 11:15 AM EST Office Visit [facility] [address] [place] [address] Brittney Graham MD [address] [place] [address] documented as of this encounter Visit Diagnoses Not on filedocumented in this encounter Additional Health Concerns Assessment Noted Time PHQ-9 Depression Total Score: 18 024 9:06 AM EST documented as of this encounter Care Teams Pens And Pencils Dipper Relationship Specialty Start Date End Date Olamide Chandler MD [address] [place] [phone] PCP - General Family Medicine 07/28/20 documented as of this encounter
--- OUTSIDE RECORDS SUMMARY | 2025-05-22 17:36 | XMS_ITS | Data Portability ---
Author Organization [facility] Address [address] [place] [address] Care Team Providers Care Mail Rider Name Role Phone Unavailable Referring Provider [phone] HIM CCA OTHER Assessment Encounter Date Assessment Date Assessment LastModified by Organization Details LastModified Time 01/28/2023 01/28/2023 I have reviewed and agree with the assessment and plan as documented by the airplane cover maker. I provided real time medical direction for this encounter and was immediately available to provide additional phone based assistance as needed. History as noted by airplane cover maker. Pt with history of OA of the knees but over the last few months she has noted pain in multiple other joints particularly her shoulders and neck. No falls or trauma. No fevers or chills or know tick exposures. 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 Labs are obtained and sent to [facility] labs for CBC w/diff, ESR, CRP and [...] results of the labs sent to the [facility] lab today. Pt instructed to seek medical attention right away with any worsening or new symptoms, which are reviewed with her. [email or web address] Not available 01/28/2023 15:58:43 05/09/2025 05/09/2025 I provided real -time medical direction via phone for this encounter and was available for additional phone-based assistance as needed. I have reviewed and agree with the Assessment and Plan as documented by the Diagnostics Sales Developer. Patient given the opportunity to ask questions. Our service contacted for an assessment of: Viral URI symptoms As per above, patient with approximately several days of viral URI symptoms. Denies fever or chills. Denies chest pain, shortness of breath, dyspnea on exertion. Positive nasal congestion and dry cough. Positive sick contacts. Per airplane cover maker on the scene, vital signs are stable and patient is afebrile. No wheezing heard on exam. COVID and Flu are both negative. No increased work of breathing and no distress. Impression: Common cold and viral URI Plan: Continue with [id number] medications to control symptoms. Red flags discussed [...] We discussed the need to seek care urgently/emergent ly in the setting of any new or worsening serious symptoms, particularly fever chills [email or web address] Not available 05/09/2025 13:46:06 Plan of Treatment Reminders Order Date Submit Date Provider Last Modified By Organization Details Last Modified Time Details Appointments None recorded. Lab rapid SARS CoV 2 Ag, QL IA, respiratory specimen 2024 025 [facility], [address] [place] [address], [id number] 5 14:34:48 rapid flu (A+B) 2024 025 [facility], [address] [place] [address], [id number] 5 14:34:28 BMP, serum or plasma [address], [phone] 5 08:19:04 CBC w/ auto diff 2022 023 [place] [facility] (Centralized Electronic Ordering - All Locations), Patient Can Go To The Location Of Their Choice, [address] 3 01:41:38 ESR (erythrocyt e sedimentati on rate), blood 2022 023 [place] [facility] (Centralized Electronic Ordering - All Locations), Patient Can Go To The Location Of Their Choice, [address] 3 01:48:53 C-reactive protein, quantitativ e, serum or plasma 2022 023 [place] [facility] (Centralized Electronic Ordering - All Locations), Patient Can Go To The Location Of Their Choice, [address] 3 02:16:13 unlisted lab - lyme disease antibody w/reflex west blot 2022 023 [place] [facility] (Centralized Electronic Ordering - All Locations), Patient Can Go To The Location Of Their Choice, [address] 3 09:18:28 Referral None recorded. Procedures None recorded. Surgeries None recorded. Imaging None recorded. Medication Orders lactated Ringers intravenous solution 2024 025 [id number], [address] [place] [address], [id number], 5 18:05:45 potassium chloride ER 20 mEq tablet,exte nded release 2024 025 [facility], [address] [place] [address], [id number], 5 18:05:45 diclofenac 1 % topical gel 2022 023 [place] [id number], [address] [place] [address], [id number], 3 15:52:21 Patient TargetsNo targets recorded. Patient InstructionsNo instructions recorded. Reason for Referral None Reported. Results Created Date Observation Date Name Description Value Unit Range Abnormal Flag Note LastModifiedBy Organization Detail LastModifiedTime 01/29/20 23 01/29/2023 COMPL ETE CBC WITH DIFF WBC 8.0 [...] . Testi ng perfo rmed by the FunzioR Exam18 BioPl ex 2200 multi plex flow immun oassa y syste m Not Available [facility] (Centralized Electronic Ordering - All Locations) Patient Can Go To The Location Of Their Choice, 01/30/2023 09:18:28 05/09/2005/09/2025 rapid flu (A+B) Flu negati ve Not Available [facility] [address], [phone] 05/09/2025 13:45:43 05/09/20 25 05/09/2025 rapid SARS CoV 2 Ag, QL IA, respi rator y speci men rapid SARS CoV 2 Ag, QL IA, respiratory specimen negati ve Not Available [facility], [phone] 05/09/2025 13:45:41 Result Notes None recorded. Medical Equipment None Reported. Allergies Allergen ID Allergen Name Allergen Category Reaction Reaction Severity Criticality Documentation Date Start Date Code Code System Note Provider Name and Address Organization Details Recorded Time 52591 calcium medicatio n Not available Not available Not available 09/19/2024 1895 RxNorm Not Available [facility] - production 15:31:46 12612 fluoxetin e medicatio n Not available Not available Not available 09/19/2024 4493 RxNorm Not Available [facility] - production 15:31:46 73224 lisinopri l medicatio n Not available Not available Not available 09/19/2024 23109 RxNorm Not Available [facility] - production 15:31:46 06743 sumatript an medicatio n Not available Not available Not available 09/19/2024 37834 RxNorm Not Available [facility] - production 15:31:46 36148 calcium carbonate medicatio n Not available Not available Not available 05/09/20252020 1897 RxNorm Other react ion(s ): Hives Not Available [facility] - External [facility] - prod 15:31:54 cinnamon preparati on food,medi cation other Not available Not available 05/09/20252019 59067 5 RxNorm Not Available [facility] - External Data Service - prod 15:31:54 soybean oil environme nt,food,m edication Not available Not available Not available 05/09/20252020 9949 RxNorm Not Available [facility] - External Data Service - prod 15:31:54 Prozac medicatio n Not available Not available Not available 05/09/2025 71817 RxNorm Not Available [facility] - External Data Service - prod 5 15:31:56 Tums medicatio n Not available Not available Not available 05/09/2025 65641 8 RxNorm Not Available [place] - External Data Service - prod 5 15:31:56 Medications Name Sig Start Date Stop [...] Available Not Available No t Available Nasal [place] (sodium chloride) 0.65 % aerosol USE 1 [...] temperature Body height Heart rate Oxygen saturation Systolic And Diastolic Provider Name and Address Organization Details Last Updated DateTime 5 85042.4 g 1 /min 98 [degF] 157.48 cm 93 /min 96 % 141/87 mm[Hg] Not Available [facility] - production 5 17:24:24 Date Recorded Heart rate Body temperature Oxygen saturation Body weight Body height Respiratory rate Systolic And Diastolic Provider Name and Address Organization Details Last Updated DateTime 3 78 /min 97.7 [degF] 98 % 49667.2 4 g 154.94 cm 18 /min 117/80 mm[Hg] Not Available [facility] - production 3 15:43:00 Date Recorded Body temperature Body weight Respiratory rate Oxygen saturation Body height Heart rate Systolic And Diastolic Provider Name and Address Organization Details Last Updated DateTime 5 98.4 [degF] 36773.6 64 g 18 /min 100 % 154.94 [...] ICD10 Code Diagnosis IMO Codes Diagnosis Note [id number] Rik Dhillon MD Main - [address] [phone] 01/28/2023 15:42:58 02/01/2023 14:13:30 Pain of multiple joints 31846529 M25.50 [id number] [facility]ED [facility]ER [facility] [address] [place] [phone] 09/19/2024 17:18:08 09/20/2024 10:09:53 Diarrhea 89421180 R19.7 Evaluation in the field was performed by my airplane cover maker colleague, as noted above, I provided real-time [...] pain, dizziness, dry mouth, decreased urine output. [id number] Brianna Salazar MD [facility] [address] [address] 05/09/2025 13:44:42 05/10/2025 10:08:29 Common cold 85532620 J00 15493 Health Concerns Section Related Observation LastModified by Organization Detai ls LastModified Time None Recorded Concern Status LastModified by Organization Details LastModified Time None Recorded Advance Directives Directive None Recorded Payers Insurance Date Sequence Insurance Name Policy Number Policy Downey Covered Member ID Downey Member ID Guarantor Name 05/10/2025 1 [facility] - DOS ON OR AFTER 2022 - DUAL ELIGIBLE - RESIDENTIAL OPTIONS AND ONE CARE (MEDICARE REPLACEMENT/ADV ANTAGE - HMO) Laisha Riggins [id number] Laisha Riggins Notes Date Note Type Note Provider Name and Address Organization Details Recorded Time 01/28/2023 text/html ROS as noted in the HPI This was a supervised home visit with airplane cover maker Neisha Copeland. HPI: Call to Laisha Dan, [...] ...................... ...................... ...................... ...................... ...................... ...................... ......... Diagnostics Sales Developer Note From Neisha Copeland: Sent to a [...] resolve on their own. 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 Time frame for pain is difficult to obtain as pt has different answers each time. Pt complains of recent increased stress and worsening pain x 3 days. Pt denies faulkner, dizziness, cp, sob, n/v/d, abd pain, fever, [...] noted (pt states this is baseline); Skin: [place], warm, dry; Rapid covid test: neg; [facility] consulted and orders bloodwork to be taken to [facility] lab. sends script to pt's pharmacy for Diclofenac gel. [facility] Venous blood draw performed, and blood samples obtained to take to [facility]. Red flags discussed. Pt has no further questions. ...................... ...................... ...................... ...................... ...................... ...................... ......... Disposition: Fulfilled Rik Dhillon MD [address] [facility],[address], [place], [address], [facility] 01/28/2023 16:56:47 09/19/2024 text/html ROS as noted in the HPI HPI: HX: Renal Agenesis, cerebral meningioma.Patient with 6 stools today following [employer] [facility] [employer] yesterday. Is on Senna for constipation and [...] at 09/19/2024 - 15:31 Comments: HPI reviewed Diagnostics Sales Developer Organization Information [facility] Name: [facility] Address: [address] [place] [address], [place] [address], Cloth Cutting Inspector: Zeferino Burton MD CLIA No.: [id number] Diagnostics Sales Developer POC Test Results from Michael Sanchez [facility] (17:48:47) pH: 7.398 pH units pCO2: 46.2 mmHg pO2: 26.7 mmHg Na: 140 mmol/L K: 3.5 mmol/L iCa: 1.17 mmol/L Cl: 103 mmol/L TCO2: 27.7 mEq/L Hct: 41 % Hb: 13.8 g/dL Glu: 111 mg/dL Lac: 0.80 mmol/L Cr: 0.80 mg/dL BUN: 13 mg/dL A mmol/L HCO3: 28.5 mmol/L ...................... ...................... ...................... ...................... ...................... ...................... ......... Diagnostics Sales Developer Note From Michael Sanchez: Patient alert and [...] increase work of breathing positive full sentences. [facility] orders EPOC data, LR1L IV now, potassium 40 MEQ PO now and to follow up with PCP. Medication administered as ordered without complication using five rights. Patient reports relief of headache after fluid administration. Red flags patient education discussed. [facility] Lab Orders: BMP, serum or plasma: Performed [facility] Medication Orders: lactated Ringers intravenous solution: Administered potassium chloride ER 20 mEq tablet,extended release: Administered ...................... ...................... ...................... ...................... ...................... ...................... ......... [facility] Consulted: Jed Yeager ...................... ...................... ...................... ...................... ...................... ...................... ......... Disposition: Jessica JED YEAGER MD [address] [place] [address],[address], [place], [address], [facility] 09/19/2024 23:31:45 05/09/2025 text/html CRC Nurse Triage Notes (Meseret [...] (GERD), Fibromyalgia PMH Reviewed at 05/09/2025 - 11:38 (ET) Allergies Reviewed at 05/09/2025 - 11:38 (ET) Comments: 54 y.o female complains of [...] signs of when to seek emergency care. Diagnostics Sales Developer Organization Information for [employer] [facility] Legal Name: [employer]. Address: [address] [place] [address], Cloth Cutting Inspector: Bacilio Henderson MD [place] No.: [id number] Diagnostics Sales Developer POC Test Results from [facility] Rapid COVID antigen (:17) COVID: - Attachments uploaded as part of this test result can be found under Documents section. Rapid influenza antigen (:18) Flu: - ...................... ...................... ...................... ...................... ...................... ...................... ......... Diagnostics Sales Developer Note From Huan Chau: [facility] responds to the listed address for a 54 yof w/ a c/c of common cold symptoms. Upon arrival on scene, pt answers the door and invites MI inside her well-kept apartment she shares w/ [...] be high. Ddx: URI, COVID/flu, viral infection [facility] swabs pt for COVID/flu and vital signs [...] or rubs present. COVID/flu results are negative. [facility] discusses supportive care w/ pt to include Tylenol or ibuprofen for fevers and body aches and plenty of fluids and rest. [facility] informs pt to call back in a few days if her symptoms get much worse and [facility] can test her again for COVID/flu. [facility] contacts [facility] and discusses the above. [facility] agrees to supportive care plan and revisit if necessary. [facility] informs pt to seek emergency care if she gets severe SOB, develops CP, high fever, or uncontrolled n/v/d. Pt gives her verbal understanding and is left in stable condition. [facility] is clear. Report completed by VANESSA Chau [id number]. [facility] Lab Orders: rapid SARS CoV 2 Ag, QL IA, respiratory specimen: Performed rapid flu (A+B): Performed ...................... ...................... ...................... ...................... ...................... ...................... ......... [facility] Consulted: Brianna Salazar ...................... ...................... ...................... ...................... ...................... ...................... ......... Disposition: Fulfilled Brianna Salazar MD [address] [facility],[address], [place], [address], [facility] [employer], [facility] 05/10/2025 08:46:54 OBGyn Episode No OBEpisode recorded.
--- OUTSIDE RECORDS SUMMARY | 2025-05-22 17:36 | XMS_ITS | Encounter Summary ---
Author Organization [email or web address] Address [address] [facility] [address] [place] [address] Care Team Providers Care Rackman Name Role Phone Olamide Chandler MD Primary Care Provide r Reason for Visit * Reason Comments Med Refill Encounter Details Date Type Department Care Team (Late st Contact Info) Description 11/27/2024 Refill [facility] [address] [place], [place] [phone] Olamide Chandler MD [address] [place], [place] [phone] Class 3 severe obesity due to excess [...] Description 07/12/2025 11:15 AM EST Office Visit [facility] [address] [place] [id number] Brittney Graham MD [address] [place] [address] documented as of this encounter Visit Diagnoses Diagnosis Class 3 severe obesity due to excess calories with serious comorbidity and body mass index (BMI) of 45.0 to 49.9 in adult (HCC) documented in this encounter Additional Health Concerns Assessment Noted Time PHQ-9 Depression Total Score: 25 024 9:17 AM EDT documented as of this encounter Care Teams Rackman Relationship Specialty Start Date End Date Olamide Chandler MD [address] [place] [id number] PCP - General Family Medicine 07/28/20 documented as of this encounter
--- OUTSIDE RECORDS SUMMARY | 2025-05-22 17:36 | XMS_ITS | Encounter Summary ---
Author Organization [employer] Address [address] [facility] [address] [place] [address] Care Team Providers Care Hydrochloric Manufacturing Supervisor Name Role Phone Olamide Chandler MD Primary Care Provide r Reason for Visit * Reason Comments Med Refill Encounter Details Date Type Department Care Team ([facility] st Contact Info) Description 05/17/2025 Refill [facility] [address] [place], [place] [phone] Olamide Chandler MD [address] [place], [place] [phone] Other specified hypothyroidism Social History Tobacco Use [...] Description 07/12/2025 11:15 AM EST Office Visit [facility] [address] [place] [address] Brittney Graham MD [address] [place] [address] documented as of this encounter Visit Diagnoses Diagnosis Other specified hypothyroidism documented in this encounter Additional Health Concerns Assessment Noted Time PHQ-9 Depression Total Score: 23 025 11:29 AM EDT documented as of this encounter Care Teams Hydrochloric Manufacturing Supervisor Relationship Specialty Start Date End Date Olamide Chandler MD [address] [place] [address] PCP - General Family Medicine 07/28/20 documented as of this encounter
--- OUTSIDE RECORDS SUMMARY | 2025-05-22 17:36 | XMS_ITS | Clinical Summary ---
Author Organization [employer] Address [address] [place] [address] 7t [place] [address] Care Team Providers Care Laborer Chemical Processing Name Role Phone Olamide Chandler MD [...] by mouth in the morning. 023 Active sodium chloride ([place] Nasal [place]) 0.65 % nasal sprayIndications: COVID-19 1-2 sprays [...] (BMI) of 45.0 to 49.9 in adult ([facility]) Inject 0.5 mL (5 mg) under the skin 1 (one) time per week. 2 mL 025 Active Tirzepatide-Weigh t Management (Zepbound) 2.5 MG/0.5ML solution auto-injectorIndi cations:Class 3 severe obesity due to excess calories with serious comorbidity and body mass index (BMI) of 45.0 to 49.9 in adult ([facility]) Inject 0.5 mL (2.5 mg) under the skin 1 (one) time per week. 2 mL 2 025 Active carvedilol (Coreg) 6.25 MG tabletIndications :Essential hypertension Take 1 tablet (6.25 mg) by mouth with breakfast and with evening meal. 60 tablet 11 025 2025 Active omeprazole (PriLOSEC) [address] capsuleIndication s:Gastroesophagea l reflux disease, unspecified whether esophagitis present TAKE 1 CAPSULE BY MOUTH EVERY DAY BEFORE BREAKFAST 90 capsule 025 Active cholecalciferol VITAMIN D (Vitamin D-3) [...] THE MORNING 90 tablet 1 025 Active cholecalciferol VITAMIN D (Vitamin D-3) 50 MCG (1999 UT) capsuleIndication s:Vitamin D deficiency TAKE 1 CAPSULE BY MOUTH DAILY 90 capsule 1 025 2024 Discontinued levothyroxine (Synthroid, Levoxyl) 75 MCG tabletIndications :Other specified hypothyroidism TAKE 1 TABLET BY MOUTH IN THE MORNING 90 tablet 1 025 2024 Discontinued(R eorder (will not trigger [...] unspecified whether stage 3a or 3b CKD ([facility]/HCC) 01/18/2025 Anxiety with depression 01/18/2025 Assessment & [...] PM EDT): Patient is being follow by hair spinning machine operator I will c/w zepbound 2.5mg weekly, I [...] It seems to be Poison James or [place] rash. We discuss about avoiding scratching, use [...] patient instructed to report back Meningioma, cerebral ([facility]/HCC) 09/08/2022 Assessment & Plan (01/18/2025 1:48 PM [...] Encounters Date Type Department Care Team Description 05/20/2025 Refill [facility] [address] [place] [address] Olamide Chandler MD Vitamin D deficiency; Seasonal allergies; Other specified hypothyroidism 05/17/2025 Refill [facility] [address] [place] [address] Olamide Chandler MD Other specified hypothyroidism 04/24/2025 Results Follow-Up [facility] [address] [place] [address] Olamide Chandler MD XR Hip 2 or 3 Views Right 04/13/2025 Refill [facility] [address] [place] [address] Olamide Chandler MD Gastroesophageal reflux disease, unspecified whether esophagitis present 04/11/2025 11:15 AM EDT Office Visit [address] [address] Olamide Chandler MD Essential hypertension (Primary Dx); Right hip pain; Vertigo; Encounter for immunization; Fibromyalgia 04/11/2025 Travel 04/10/2025 Telephone [facility] [place] [address] Olamide Chandler MD Chart Prep 04/04/2025 Travel 04/02/2025 Orders Only GENERIC EXTERNAL DATA DEPARTMENT Provider, Generic External Data 03/07/2025 Telephone [facility] [place] [address] Olamide Chandler MD 02/28/[address] [address] Olamide Chandler MD Referral 02/20/[address] [address] Olamide Chandler MD 02/20/[address] [address] Olamide Chadnler MD Stable Lab Orders 02/20/2025 Results Follow-Up [address] [address] Brittney Graham MD Vascular US carotid artery duplex bilateral 02/20/[address] [address] Olamide Chandler MD Results from Last 3 Months Immunizations Immunization Administration [...] Description 07/12/2025 11:15 AM EST Office Visit [facility] [address] [place] [address] Brittney Graham MD [address] [place], [place] [phone] Health Maintenance Due Date Last Done Comments CT Colonography 1971 FIT DNA/Cologuard 1971 FIT 1971 FOBT 1970 HIV Screening 1970 Sigmoidoscopy 1970 Hepatitis C Screening 10/21/1989 RSV Patients and Patients Aged 60 years or older (1 - Risk 50-74 years 1-dose series) 10/21/2021 COVID-19 Vaccine ( season) 2025 10/28/2023, 06/22/2021, 09/10/2020, Additional history exists Depression Monitoring 10/10/2025 04/11/2025, 025 Mammogram 11/14/2025 11/14/2024, 0412/2024, 09/15/2023, Additional history [...] URINE, ROUTINE Routine 04/02/2025 7:56 AM EDT HEMOGLOBIN A1C Routine 02/19/2025 12:31 PM EDT Burning sensation BI BREAST LIMITED LEFT Routine 11/14/2024 11:00 AM [...] AM EDT Narrative 04/18/2025 10:24 AM EDT [place] [address] XRay Report Signed Patient: Laisha Ye I MR#: M [id number] : 1970 Acct:[id number] Age/Sex: 54 / F ADM Date: 04/18/25 Loc: HO.CAREY Attending Dr: Olamide Stevens MD Ordering Physician: Olamide Chandler MD Date of Service: 04/18/25 Procedure(s): XR hip RT min 2V Accession Number(s): [id number] cc: Olamide Chandler MD Reason for Exam: [...] 04/18/25 1020 DD/ 1012 TD/TT: 04/18/25 1015 Front Line Leader: Procedure Note Doncihchoter, Image - 04/18/[address] [address] XRay Report Signed Patient: Laisha Ye IMR#: M [id number] : 1970Acct:[id number] Age/Sex: 54 / FADM Date: 04/18/25 Loc: HO.XRAY Attending Dr: Olamide Stevens MD Ordering Physician: Olamide Chandler MD Date of Service: 04/18/25 Procedure(s): XR hip RT min 2V Accession Number(s): [id number] cc: Olamide Chandler MD Reason for Exam: [...] 04/18/25 1020 DD/ 1012 TD/TT: 04/18/25 1015 Front Line Leader: Olamide Stveens MD IMG XR PROCEDURES Harish johanna Result - Final * Culture, Urine, Routine (04/02/2025 7:56 AM EDT) Urine Urine specimen obtained by clean catch procedure / Unknown 04/02/2025 7:56 AM EDT 04/02/2025 5:24 PM EDT Comment:UACC Narrative [facility] - 04/04/2025 10:19 AM EDT Urine Culture Report Result Urine Culture 10,000 to 50,000 cfu/ml Urine Culture Mixed bacterial marge characteristic of Urine Culture urogenital contamination. Specimen Source: Urine clean catch us Generic External Data Provider LAB MICROBIOLOGY - GENERAL ORDERABLES Final Result Performing Organization Address [facility] Co de Phone Number [facility] [address] [place] [address] [phone] * Hemoglobin A1c (02/19/2025 12:31 PM EDT) Hemoglobin A1c 5.4 <6.0 % [facility] Comment:Hemoglobin A1C Refer ence Range Adults: 4.8 - 6.0 % Non diabetic: < 6.0 % Goal: < 7.0 %Additional Action Suggested: > 8.0 %Note: Hemoglobin A1c results are invalid for patients with abnormal amounts of HbF. Blood transfusions may impact the HbA1c concentration in the patient sample. Estimated Average Glucose 108 mg/dL [facility] Comment:eAG = Estimated ave rage glucose which is %A1C expressed asaverage glucose, using the formula of the W4D-IqfusprKzftjzi Glucose study (ADAG), Diabetes Care, Vol.31,#8,Jan. 2007 Blood Venous blood specimen / Unknown 02/19/2025 12:31 PM EDT 02/19/2025 4:10 PM EDT us Olamide Stevens MD LAB BLOOD ORDERABLES Final Result Performing Organization Address [facility] Co de Phone Number [facility] [address] [place] [address] [phone] * BI US Breast Limited Left (11/14/2024 11:00 AM EDT) Anatomical Region Laterality Modality Breast Left Ultrasound 11/14/2024 11:0 0 AM EDT Narrative 11/14/2024 3:08 PM EDT [facility] [address] [place] [address] Ultrasound Report Signed Patient: Laisha Ye I MR#: M [id number] : 1970 Acct:[id number] Age/Sex: 54 / F ADM Date: 11/14/24 Loc: HO.MAMMO Attending Dr: Olamide Stevens MD Ordering Physician: Olamide Chandler MD Date of Service: 11/14/24 Procedure(s): US breast LT limited mamm only Accession Number(s): [id number] cc: Olamide Chandler MD EXAMINATION: MM DIAGNOSTIC [...] 11/14/24 1505 DD/ 1100 TD/TT: 11/14/24 1100 Front Line Leader: Procedure Note Donotuseinterpreter, Image - 11/14/2024 [facility] [address] [place] [address] Ultrasound Report Signed Patient: Laisha Ye [facility]#: M [id number] : 1970Acct:[id number] Age/Sex: 54 / FADM Date: 11/14/24 Loc: HO.MAMMO Attending Dr: Olamide Stevens MD Ordering Physician: Olamide Chandler MD Date of Service: 11/14/24 Procedure(s): US breast LT limited mamm only Accession Number(s): [id number] cc: Olamide Chandler MD EXAMINATION: MM DIAGNOSTIC [...] 11/14/24 1505 DD/ 1100 TD/TT: 11/14/24 1100 Front Line Leader: us Olamide Stevens MD IMG US PROCEDURES Fin al Result * (ABNORMAL) Lipid Panel with Reflex to Direct LDL (03/29/2024 9:50 AM EDT) Triglycerides 89 <150 mg/dL [facility] Comment:Desirable Triglyceri de: less than 150 mg/dLBorderline High Triglyceride 150-199 mg/dLHigh Triglyceride: 200-499 mg/dLVery High Triglyceride: greater than or equal to 5OO mg/dL Cholesterol 168 <200 mg/dL [facility] Comment:Desirable Cholestero l: less than 200 mg/dLBorderline High Cholesterol: 200-239 mg/dLHigh Cholesterol: greater than 239 mg/dL LDL Cholesterol Calculated 107(H) <100 mg/dL [facility] Comment:Desirable LDL: less than 100 mg/dLNear Optimal/Above Optimal LDL: 110- 129 mg/dLBorderline High LDL: 130-159 mg/dLHigh LDL: 160-189 mg/dLVery High LDL: greater than or equal to 190 mg/dL HDL Cholesterol 44 >40 mg/dL [facility] Comment:Desirable HDL: great er than 40 mg/dL Note: This HDL assay may give artificially low results in patients with liver disease. Blood 03/29/2024 9:50 AM EDT 03/29/2024 11:08 AM EDT Olamide Stevens MD LAB BLOOD ORDERABLES Final Result [facility] [address] [place] [address] [phone] * Image-Guided Pap with Age-Based Screening??with CT/NG,??Trichomonas (10/29/2022 11:29 AM EDT) Comment [email or web address] Comment: This order for age-based cervical cancer and STI screening follows ACOG guidelines(PB 168, 140, WTE125). See individual assays for performing site location. Clinical Information: 52 Y/O F NO PREVIOUS ABNORMALITY C [facility] LMP: NONE GIVEN [facility] Prev. PAP: NONE GIVEN [facility] [place] [facility] Prev. BX: NONE GIVEN [facility] [place] [facility] SOURCE: None given [facility] Statement Of Adequacy: [facility] Comment: Satisfactory for evaluation. Endocervical/transformation zone component absent. Interpretation/Re sult: Negative for intraepithelial lesion or malignancy. [facility] [place] [facility] Comment: This Pap test has been evaluated with computer assisted technology. [facility] [place] [facility] Hereditary Cancer Program Coordinator: Amalia [employer] Comment: EXJ, CT(ASCP) CT Screening Location: [address] [address] (Always Message) [facility] [address] Comment: EXPLANATORY NOTE: The Pap is a [...] HPV nRNA E6/E7 Not Detected Not Detected [email or web address] Comment: Methodology: Needle Maker-Mediated Amplification This assay detects E6/E7 viral messenger RNA (mRNA) from 14 high-risk HPV types (16,18,31,33,35,39,45,51,52,56,58,59,66,68). Cervical sources are required for HPV testing. If a vaginal source from a patient who has had a total hysterectomy with removal of cervix was submitted, please contact the testing laboratory for alternative testing options. For additional information, please refer to http://Big [email or web address]/faq/WUU409b3 (This link if provided for information/ educational purposes only.) Chlamydia trachomatis RNA, TMA, Urogenital NOT DETECTED NOT DETECTED [facility] [place] [facility] Neisseria gonorrhoeae RNA, TMA, Urogenital NOT DETECTED NOT DETECTED [facility] [place] [facility] Comment [facility] [place] [facility] Comment: The analytical performance characteristics of this assay, when used to test SurePath(TM) specimens have been determined by [facility]. The modifications have not been cleared or approved by the FDA. This assay has been validated pursuant to the CLIA regulations and is used for clinical purposes. For additional information, please refer to https://Datadecision/faq/GGA891 (This link is being provided for information/ educational purposes only.) Trichomonas vaginalis, QL, TMA, PAP Vial NOT DETECTED NOT DETECTED [email or web address] Comment: The analytical performance characteristics of this assay have been determined by [facility]. The modifications have not been cleared or approved by the FDA. This assay has been validated pursuant to the CLIA regulations and is used for clinical purposes. For additional information, please refer to http://Datadecision/ faq/Trichomonastma (This link is being provided for information/ educational purposes only.) Pap Vial 10/29/2022 11:2 9 AM EDT 10/31/2022 4:55 PM EDT Olamide Stevens MD LAB CYTOLOGY ORDERABL ES Final Result [facility] [address], [place] [address] [facility] [place] [facility] [address] [place] [address] * Hm Colonoscopy (04/12/2022 10:07 PM EDT) Historical Provider HEALTH MAINTENANCE Final Result from Last 3 Months or Most Recently Relevant to Health Maintenance Insurance [facility] ONE CARE < 65 [place] [id number] Care Teams Laborer Chemical Processing Relationship Specialty Start Date End Date Olamide Chandler MD [address] [place] [phone] PCP - General Family Medicine 07/28/20
--- OUTSIDE RECORDS SUMMARY | 2025-05-22 17:36 | XMS_ITS | Encounter Summary ---
Author Organization [employer] Address [address] [facility] 7t [place] [address] Care Team Providers Care Generation Technologist Name Role Phone Olamide Chandler MD Primary Care Provide r Encounter Details Date Type Department Care Team (Late Contact Info) Description 09/01/2022 Orders Only [facility] [address] [place] [phone] Renée Okeefe [place] Social History Tobacco Use [...] 11:15 AM EST Office Visit [facility] [address] [place] [phone] Brittney Graham MD [address] [place] [address] documented as of this encounter Procedures Procedure [...] (04/17/2023 1:20 AM EDT) Color Urine Yellow [facility] Appearance Urine Clear [facility] PH 6.0 5.0 - 9.0 [facility] Glucose Urine UA Negative Negative mg/dL [facility] Urine Blood Negative Negative [facility] Specific Raymond - Urine <=1.005 1.005 - 1.025 [facility] Urine Protein Negative Neg-Trace mg/dL [facility] Urine Ketones Negative Negative mg/dL [facility] Nitrite Urine Negative Negative [facility] Leukocyte Esterase Urine Trace(A) Negative [facility] RBC Urine 0-2 0 - 2 /HPF [facility] Urine WBC 0-5 0 - 5 /HPF [facility] Urine Squamous Epithelial Cell 0-2 0 - 2 /HPF [facility] Urine Bacteria None Seen None Seen [facility] Hyaline Casts, Urine 0-2 0 - 2 /LPF [facility] 04/17/2023 1:20 AM EDT 04/17/2023 1:23 AM EDT Narrative [facility] - 04/17/2023 1:42 AM EDT [id number], Clean Catch us [facility] External Provider LAB URI NE ORDERABLES Final Result Performing Organization Address [facility]/ZIP Co de Phone Number [facility] [address] [place] [address] [phone] * B Type Natriuretic Peptide (BNP) (04/17/2023 12:46 AM EDT) B Type Natriuretic Peptide 44 <100 pg/mL [facility] Comment:For those patients w ho are being treated with Natrecor(nesiritide, recombinant BNP), BNP testing should beperformed at least two hours post treatment in order toensure that only endogenous levels of BNP are detected. 04/17/2023 12:4 6 AM EDT 04/17/2023 12:53 AM EDT [facility] External Provider LAB BLO OD ORDERABLES Final Result Performing Organization Address [facility] Co de Phone Number [facility] [address] [place] [address] [phone] * BI Mammogram Screening Tomosynthesis Bilateral (09/09/2022 8:30 AM EDT) Anatomical Region Laterality Modality Breast Bilateral Mammography 09/09/2022 8:30 AM EDT Narrative 09/10/2022 11:56 AM EDT [facility] [address] [place] [address] Mammography Report Signed Patient: Laisha Ye I MR#: M [id number] : 1970 Acct:[id number] Age/Sex: 51 / F ADM Date: 09/09/22 Loc: HO.MAMMO Attending Dr: Olamide Stevens MD Ordering Physician: Olamide Chandler MD Results: 1Negative Date of Service: 09/09/22 Follow Up: 1 Year From Orig inal Mammogram Procedure(s): MM tomosynthesis screening BI Accession Number(s): [id number] cc: Olamide Chandler MD EXAMINATION: MM SCREENING [...] in OV> 09/10/22 1153 DD/ 0830 TD/TT: Green Building Energy Engineer: SK Procedure Note Donotuseinterpreter, Image - 09/10/2022 [place] [facility] [address] [place], [place] [address] Mammography Report Signed Patient: Laisha Ye IMR#: M [id number] : 1970Acct:[id number] Age/Sex: 51 / FADM Date: 09/09/22 Loc: HO.MAMMO Attending Dr: Olamide Stevens MD Ordering Physician: Olamide Chandler MDResults: 1Negative Date of Service: 09/09/22Follow Up: 1 Year From Orig inal Mammogram Procedure(s): MM tomosynthesis screening BI Accession Number(s): [id number] cc: Olamide Chandler MD EXAMINATION: MM SCREENING [...] in OV> 09/10/22 1153 DD/ 0830 TD/TT: Green Building Energy Engineer: SAURAV [facility] External Provider IMG BI PROCEDURES Edited Result - Final documented in this encounter Visit Diagnoses Not on filedocumented in this encounter Care Teams Generation Technologist Relationship Specialty Start Date End Date Olamide Chandler MD [address] [place] [phone] PCP - General Family Medicine 07/28/20 documented as of this encounter
--- OUTSIDE RECORDS SUMMARY | 2025-05-22 17:36 | XMS_ITS | Encounter Summary ---
Author Organization [email or web address] Address [address] [facility] [address]t [place] [address] Care Team Providers Care Superintendent Automotive Name Role Phone Olamide Chandler MD Primary Care Provide r Reason for Visit * Reason Comments Med Refill Encounter Details Date Type Department Care Team ([facility] st Contact Info) Description 05/20/2025 Refill [facility] [address] [place], [place] [phone] Olamide Chandler MD [address] [place], [place] [phone] Vitamin D deficiency; Seasonal allergies; Other specified hypothyroidism Social History Tobacco Use [...] [facility] [address] [place] [phone] Brittney Graham MD [address] [place] [phone] documented as of this encounter Visit Diagnoses Diagnosis Vitamin D deficiency Seasonal allergies Allergic rhinitis, cause unspecified Other specified hypothyroidism documented in this encounter Additional Health Concerns Assessment Noted Time PHQ-9 Depression Total Score: 23 025 11:29 AM EDT documented as of this encounter Care Teams Superintendent Automotive Relationship Specialty Start Date End Date Olamide Chandler MD [address] [place] [phone] PCP - General Family Medicine 07/28/20 documented as of this encounter
--- OUTSIDE RECORDS SUMMARY | 2025-05-22 17:36 | XMS_ITS | Data Portability ---
Author Organization [place] [facility], Allergy Address [address] [address] Care Team Providers Care Computer Network Engineer Name Role Phone PEGGY GILES Primary Care Provider Assessment Encounter Date Assessment Date Assessment LastModified by Organization Details LastModified Time 02/06/2025 02/06/2025 54 year old female, with a history of KARLA on CPAP therapy, presents for evaluation of dizziness. MRI of the brain done at [facility] on 01/25/25 to monitor a meningioma incidentally showed a small mucous retention cyst in the posterior maxillary antrum. Bilateral tympanic membranes are intact with well aerated middle ear spaces. No evidence of effusion or infection. Quincy-Hallpike was negative for nystagmus bilaterally, however she did endorse lightheadedness upon sitting upright. Patient also exhibited swaying with Romberg test. Fukuda marching test was positive for rotation to the right. We discussed that the patient's history and symptoms are not consistent with otologic pathology. Recommend following up with her ui developer with angular js as her newly prescribed carvedilol may be [...] Romberg and Fukuda marching test 2024 025 [facility] Neurology Scheduling, [address] [facility], [place], [address], 5 11:37:36 Procedures None recorded. Surgeries None [...] Recorded Time Acute eczematoi d otitis externa 03373656 Active 2021 Acute eczematoi d otitis externa, bilateral ; Note: Date Diagnosed : 12/16/2021 9:33 AM (H60.543) Not Available [facility] 4 02:24:58 Dizziness and giddiness 582609382 Active 2023 Dizziness and giddiness ; Note: Date Diagnosed : 08/30/2023 1:50 PM (R42) Not Available [facility] 4 02:24:42 Impacted cerumen of bilateral ears 98621441990 24969 Active 2023 Impacted cerumen, bilateral ; Note: Date Diagnosed : 08/30/2023 1:50 PM (H61.23) Not Available [facility] 4 02:25:05 Lighthead edness 936759020 Active 2024 NADIR MEZA 100 [facility] [address], [place], [address] , [place] [facility] 5 10:04:06 Intracran ial meningiom a 041557273 Active 2024 NADIR MEZA 100 [facility] [address], [place], [address] , [place] - [facility] [place] 5 10:22:49 Referred otalgia of right ear 29859638962 02478 Active 2024 NADIR MEZA 100 [facility] 100, [place], [address] , [facility] - [facility] [place] 5 10:24:37 Obstructi ve sleep apnea syndrome 16559777 Active 2024 NADIR MEZA 100 [facility] [address], [place], [address] , [facility] - [facility] [place] 5 10:31:44 Disorder of brain 86766066 Active 2024 NADIR MEZA 100 [facility] [address], [place], [address] , [facility] - [facility] [place] 20:28:53 Problem Notes None recorded. Medical Equipment None Reported. Allergies Allergen ID Allergen Name Allergen Category Reaction Reaction Severity Criticality Documentation Date Start Date Code Code System Note Provider Name and Address Organization Details Recorded Time 94355 Prozac medicatio n other Not available Not available 11/01/2023 34444 RxNorm React ion: other react ion, Unkno wn; Not Available [facility] 4 00:57:12 95355 Tums medicatio n other Not available Not available 11/01/2023 54165 8 RxNorm React ion: other react ion, Unkno wn; Not Available [facility] 4 00:57:23 Medications Name Sig Start Date [...] mg tablet 08/29 completed Medicati on ID: [id number] B rand Name: trazodon e Send Method: E-Prescr ibed Sub s Allowed: subs OK Medic ationGen ericName : trazodon e Not Available Not Available Not Available citalopra m 10 mg tablet TAKE 1 TABLET BY MOUTH DAILY IN ADDITION TO 20 MG TABLET active Not Available Not Available No t Available sucralfat e 1 gram tablet 08/29 completed Medicati on ID: [id number] B rand Name: sucralfa te Send Method: E-Prescr ibed Sub s Allowed: subs OK Medic ationGen ericName : sucralfa te Not Available Not Available Not Available Excedrin Migraine 250 mg-250 mg-65 mg tablet 08/29 completed Medicati on ID: [id number] B rand Name: Excedrin Migraine Send Method: E-Prescr ibed Sub s Allowed: subs OK Medic ationGen ericName : Excedrin Migraine Not Available Not Available Not Available acetamino phen 500 mg tablet 08/29 completed Medicati on ID: [id number] B rand Name: acetamin ophen Se nd [...] mg capsule 08/29 completed Medicati on ID: [id number] B rand Name: Macrobid Send Method: E-Prescr [...] mg tablet 08/29 completed Medicati on ID: [id number] B rand Name: amitript yline Se nd Method: E-Prescr ibed Sub s Allowed: subs OK Medic ationGen ericName : amitript yline Not Available Not Available Not Available meclizine 25 mg tablet active Medicati on ID: [id number] B rand Name: meclizin e Send Method: E-Prescr ibed Sub s Allowed: subs OK Medic ationGen ericName : meclizin e Not Available Not Available Not Available baclofen 10 mg tablet 08/29 completed Medicati on ID: [id number] B rand Name: baclofen Send Method: E-Prescr ibed Sub s Allowed: subs OK Medic ationGen ericName : baclofen Not Available Not Available Not Available amlodipin e 10 mg tablet 02/06 completed Medicati on ID: [id number] B rand Name: amlodipi ne Send Method: E-Prescr ibed Sub s Allowed: subs OK Medic ationGen ericName : amlodipi ne Not Available Not Available Not Available tacrolimu s 0.1 % topical ointment APPLY TOPICALL Y TO FACE TWICE DAILY NEEDED FOR FLARES active Not Available Not Available No t Available lisinopri l 10 mg tablet 02/06 completed Medicati on ID: [id number] B rand Name: lisinopr il Send Method: E-Prescr ibed Sub s Allowed: subs OK Medic ationGen ericName : lisinopr il Not Available Not Available Not Available losartan 25 mg tablet 02/06 completed Medicati on ID: [id number] B rand Name: losartan Send Method: E-Prescr [...] mg tablet 08/29 completed Medicati on ID: [id number] B rand Name: monteluk ast Send Method: E-Prescr ibed Sub s Allowed: subs OK Medic ationGen ericName : monteluk ast Not Available Not Available Not Available fluticaso ne 100 mcg-salme terol 50 mcg/dose blistr powdr for inhalatio n 08/29 completed Medicati on ID: [id number] B rand Name: fluticas one propion- salmeter ol Send Method: E-Prescr ibed Sub s Allowed: subs OK Medic ationGen ericName : fluticas one propion- salmeter ol Not Available Not Available Not Available polyethyl tejas glycol 3350 17 gram/dose oral powder 08/29 completed Medicati on ID: 287483 B rand Name: polyethy jermaine glycol 3350 Sen d Method: E-Prescr ibed Sub s Allowed: subs OK Medic ationGen ericName : polyethy jermaine glycol 3350 Not Available Not Available Not Available albuterol sulfate HFA 90 mcg/actua tion aerosol inhaler 08/29 completed Medicati on ID: [id number] B rand Name: albutero l sulfate Send [...] %) nasal spray active Medicati on ID: 532032 B rand Name: ipratrop ium bromide Send Method: E-Prescr ibed Sub s Allowed: subs OK Medic ationGen ericName : ipratrop ium bromide Not Available Not Available Not Available loratadin e 10 mg tablet 08/29 completed Medicati on ID: [id number] B rand Name: loratadi ne Send Method: [...] as directed 08/29 completed Medicati on ID: [id number] P josefribe d By Name: Rupinder Levine [...] Updated DateTime 02/06/2025 154.94 cm 34.8 kg/m2 46282 g Conchita Fodr [place] - [facility] 02/06/2025 09:38:08 Social History None recorded. Functional Status None recorded. Mental Status None recorded. Family History Nothing Reported. Medical History No medical history recorded. Gynecological HistoryNo gynecological history recorded. Obstetrics History GPAL:G 0 P 0 0 0 0 Past Encounters Encounter ID Performer Location Encounter Start Date Encounter Closed Date Diagnosis/Indication Diagnosis SNOMED-CT Code Diagnosis ICD10 Code Diagnosis IMO Codes Diagnosis Note [id number] NADIR MEZA [facility] [address] [address] 02/06/2025 09:28:44 02/06/2025 10:09:14 Lightheadedness 177819199 R42 79618 Intracrani al meningioma 918236554 D32.0 586328 Referred o talgia of right ear 5842190166 345734 H92.01 M26.621 M79.11 The patient complains of [...] considered . Obstructiv e sleep apnea syndrome 67617488 G47.33 9091489 Patient is unsure if her current pressure settings are causing her throat discomfort . She will follow up with her sleep medicine provider to discuss if this can be adjusted. Disorder of brain 205349 09 G93.40 4023940 Health Concerns Section Related Observation LastModified by Organization Detai ls LastModified Time None Recorded Concern Status LastModified by Organization Details LastModified Time None Recorded Advance Directives Directive None Recorded Payers Insurance Date Sequence Insurance Name Policy Number Policy Downey Covered Member ID Downey Member ID Guarantor Name 04/23/2025 1 [facility] - DOS ON OR AFTER 2022 - ONE CARE (MEDICARE REPLACEMENT/ADV ANTAGE - HMO) Laisha Riggins [id number] Laisha Riggins Notes Date Note Type Note [...] physician. MRI of the brain done at [facility] on 01/25/25 incidentally showed a small [...] lightheadedness. This is being managed by her ui developer with angular js. MARISOL JESUS MD [address] [place] [address], [phone], [facility] - [facility] 02/07/2025 12:30:48 OBGyn Episode No OBEpisode recorded.
--- OUTSIDE RECORDS SUMMARY | 2025-05-22 17:36 | XMS_ITS | Encounter Summary ---
Author Organization [employer] Address [address] [facility] 7 [place] [address] Care Team Providers Care Horticultural Agent Name Role Phone Olamide Chandler MD Primary Care Provide r Reason for Visit * Reason Onset Date Comments Med Refill 01/07/2025 Encounter Details Date Type Department Care Team ([facility] st Contact Info) Description 01/07/2025 Telephone [facility] MEDICINE [address] [place], [place] [phone] Olamide Chandler MD [address] [place], [place] [phone] Med Refill Social History Tobacco Use Types [...] MG/0.5ML solution auto-injector [id number] - [place], [place] - [address] [place] [address] [facility] documented in this encounter Plan of Treatment Upcoming Encounters Date Type Department Care Team ([facility] st Contact Info) Description 07/12/2025 11:15 AM EST Office Visit [facility] MED[facility] [address] [place] [address] Brittney Graham MD [address] [place] [address] documented as of this encounter Visit Diagnoses Diagnosis Class 3 severe obesity due to excess calories with serious comorbidity and body mass index (BMI) of 45.0 to 49.9 in adult (HCC) documented in this encounter Additional Health Concerns Assessment Noted Time PHQ-9 Depression Total Score: 25 024 9:17 AM EDT documented as of this encounter Care Teams Horticultural Agent Relationship Specialty Start Date End Date Olamide Chandler MD [address] [place] [address] PCP - General Family Medicine 07/28/20 documented as of this encounter
--- OUTSIDE RECORDS SUMMARY | 2025-05-22 17:36 | XMS_ITS | Encounter Summary ---
Author Organization [employer] Address [address] [facility] 7 [place] [address] Care Team Providers Care Desktop Support Technician Name Role Phone Olamide Chandler MD Primary Care Provide r Reason for Visit * Reason Onset Date Comments Med Refill 12/04/2024 Encounter Details Date Type Department Care Team ([facility] st Contact Info) Description 12/04/2024 Telephone [facility] MEDICINE [address] [place], [place] [phone] Olamide Chandler MD [address] [place], [place] [phone] Med Refill Social History Tobacco Use Types [...] Please review and resubmit Contact pt at [phone] Need automobile technician * Telephone Encounter - Bea Escobar LPN - 12/04/2024 2:48 PM EDT Medication was sent to [facility] #[id number] today. * Telephone Encounter - Joselyn Boyer - 12/04/2024 2:46 PM EDT TC from pt requesting medication refill. Medications needing refill : Zepbound 2.5 MG/0.5ML solution auto-injector To be sent to: [id number] [place] [address] [place] [facility] [place] signed [place] Joselyn Boyer at 12/04/2024 2:46 PM EDT documented in this encounter Plan of Treatment Upcoming Encounters Date Type Department Care Team (Late st Contact Info) Description 07/12/2025 11:15 AM EST Office Visit [facility] MEDICINE [address] [place] [address] Brittney Graham MD [address] [place], [place] [phone] documented as of this encounter Visit Diagnoses Not on filedocumented in this encounter Additional Health Concerns Assessment Noted Time PHQ-9 Depression Total Score: 25 024 9:17 AM EDT documented as of this encounter Care Teams Desktop Support Technician Relationship Specialty Start Date End Date Olamide Chandler MD [address] [place] [phone] PCP - General Family Medicine 07/28/20 documented as of this encounter
--- OUTSIDE RECORDS SUMMARY | 2025-05-22 17:36 | XMS_ITS | Clinical Summary ---
Author Organization [facility] Address [address] [place] [address] Phone Care Team Providers Care Radio Recorder Name Role Phone Unavailable Primary Care Provider [...]
--- OUTSIDE RECORDS SUMMARY | 2025-05-22 17:36 | XMS_ITS | Encounter Summary ---
Author Organization [facility] Address [address] [facility] [address] [place] [address] Encounters * CPT with Medical [facility] at [facility] on 2025-05-09 { reasonForRequest : runny nose/dizzy , patientReports : Historyof asthma, increased use of inhaler; Shortness of breath with exertion , denies :[&qu ot;Increased work of breathing/labored with or without fever , Unable to speak in full sentences without distress , Discoloration of skin -cyanosis , Needs to sleep sitting up, can t catch breath , Shortness of breath in setting of confusion , Cough, fever greater than 2 days ], chiefComplaints : Common Cold , pmh : COPD/Asthma, Hypertension, Asthma, Gastroesophageal Reflux Disease (GERD), Fibromyalg ia , allergies : Calcium, Fluoxetine, Lisinopril, Sumatriptan , otherA llergies :null, painAssessment : , visitOutcome : ,&q uot;additionalComments : 54 y.o female complains of Common Cold\n\nPt has c/o of runny nose that just started today as well as a headache. She does have chronic body aches. \nShe does not have cough, Mild shortness of breath , but has asthma, has not been using her inhalers, She is talking in full sentences and no wheeze. \nShe does have chronic dizziness but feels it is different today', she feels that it is due to carvedilol. She only has one kidney so she is worried about taking any meds, she was born this way. She has not taken anything OTC. she feels warm, no chills \nI provided information on the mobile health provider response time and advised the patient and/or caregiver to monitor reported signs and symptoms. I discussed the warning signs of when to seek emergency care. } [facility] responds to the listed address for a 54 yof w/ a c/c of common cold symptoms. Upon arrival on scene, pt answers the door and invites [facility] inside her well-kept apartment she shares w/ her . She is generally well-appearing and NAD is noted. She is moving through her home unencumbered and speaking in full and complete sentences. Pt sits on the sofa for evaluation and is endorsing feeling unwell today. She says her was dx w/ a URI several days ago and they have been inclose quarters running errands and decorating the past [...] be high. Ddx: URI, COVID/flu, viral infection [facility] swabs pt for COVID/flu and vital [...] or rubs present. COVID/flu results are negative. [facility] discusses supportive care w/ pt to include Tylenol or ibuprofen for fevers and body aches and plenty of fluids and rest. [facility] informs pt to call back in a few days if her symptoms get much worse and [facility] can test her again for COVID/flu. [facility] contacts [facility] and discusses the above. [facility] agrees to supportive care plan and revisit if necessary. [facility] informs pt to seek emergency care if she gets severe SOB, develops CP, high fever, or uncontrolled n/v/d. Pt gives her verbal understanding and is left in stable condition. [facility] is clear. Report completed by AVNESSA Chau [id number]. IV_(FLUIDS_AND/OR_MEDICATION), MEDICATION_IM, POC_BLOODWORK Written by [facility] on 2025-05-09
--- OUTSIDE RECORDS SUMMARY | 2025-05-22 17:36 | XMS_ITS | Encounter Summary ---
Author Organization [employer] Address [address] [facility] 7[address] [place] [address] Care Team Providers Care Children'[employer] Court Magistrate Name Role Phone Olamide Chandler MD Primary Care Provide r Encounter Details Date Type Department Care Team ([facility] st Contact Info) Description 03/07/[address] [facility] MEDICINE [address] [place], [place] [phone] Olamide Chandler MD [address] [place], [place] [phone] Social History Tobacco Use Types Packs/Day Years [...] Description 07/12/2025 11:15 AM EST Office Visit [facility] MEDICINE [address] [place] [address] Brittney Graham MD [address] [place] [address] documented as of this encounter Visit Diagnoses Not on filedocumented in this encounter Additional Health Concerns Assessment Noted Time PHQ-9 Depression Total Score: 25 024 9:17 AM EDT documented as of this encounter Care Teams Children'[employer] [address] Magistrate Relationship Specialty Start Date End Date Olamide Chandler MD [address] [place] [address] PCP - General Family Medicine 07/28/20 documented as of this encounter
== END 2025-05-22 14:40 | disposition home or self-care (01) ==
LOC: HO.MAMMO 14:39
PROVIDERS: PCP Internal Medicine; Visit Provider Internal Medicine
DX: N64.89 Other specified disorders of breast (principal); N63.20 Unspecified lump in the left breast, unspecified quadrant
CPT/HCPCS: 76642; 77061; 77065

== ENCOUNTER 2025-06-03 08:06 | Outpatient (AMB) | payer OTHER, SELFPAY ==
--- NOTE | 2025-06-03 08:31 | MHC.OFFVIS ---
Vital Signs 06/03/25 08:35 Height 5 ft 2 in Weight 197 lb BMI 36.0 Intake Visit Reasons: US bx L brst 1 o'clock Intake Note: Patient is seen in office for ultrasound biopsy CONSULT left breast 1 o'clock density. Pt c/o: reports burning sensation in the left breast, denies change in shape or size of breast. Bx @ 9am Flower Grower Required: Yes Flower Grower Language: Para Educator Services: Flower Grower Offered & Declined Accompanied by: Family/Other Allergies cinnamon (CINNAMON) Allergy (Intermediate, Verified 06/03/25 08:36) THROAT SWELLING soy Allergy (Intermediate, Verified 06/03/25 08:36) Itching calcium carbonate (From Tums) Allergy (Unknown, Verified 06/03/25 08:36) Unknown fluoxetine (From PROZAC) Allergy (Unknown, Verified 06/03/25 08:36) UNKNOWN Medication List - Last Reconciled 06/03/25 by Michael Kinsey MD albuterol sulfate 90 mcg/actuation 1 inh inhalation Q4H PRN aspirin 81 mg PO DAILY carvedilol 3.125 mg PO BID carvedilol 6.25 mg PO BID cholecalciferol (vitamin D3) 50 mcg PO DAILY 30 days citalopram 10 mg PO DAILY CPAP (CPAP Machine/Device) As directed fluticasone propionate 50 mcg/actuation (Flonase Allergy Relief) 1 spray intranasal DAILY hydralazine 25 mg PO BID hydrocortisone 2.5% (Proctosol HC) 1 appl [place] BEDTIME PRN levothyroxine (Euthyrox) 75 mcg PO QAM lorazepam 0.5 mg PO BID PRN omeprazole 40 mg PO DAILY omeprazole 20 mg PO QAM triamcinolone acetonide 0.1% 1 appl topical BID-TID HPI Comments Details: History of Present Illness The patient is a 54 year old female presenting for consultation regarding an abnormal finding on mammogram and ultrasound of the left breast. A mammogram and subsequent ultrasound identified a small, oblong, dense spot in the left breast at the 12 o'clock position, located behind the nipple. She was scheduled for an ultrasound-guided biopsy today to determine the nature of the finding, as the radiologist wanted to be certain rather than proceed with surveillance every six months. She has a history of breast reduction surgery in 2014 with no subsequent infections or other problems; incisions healed well. She has a tendency to form keloid scars. She denies any other breast surgeries or prior breast problems. Her menarche was at age 12, and she experienced her last menstrual period about a year and a half ago. She has no children and has not used hormone replacement therapy. There is no family history of breast cancer or ovarian cancer, and no known family members have undergone genetic testing. Results 05/22/2025: Mammogram and ultrasound revealed a hypoechoic heterogeneous mass on ultrasound 01:00 1 cm from the nipple probable correlate to focal asymmetry on mammogram. Ultrasound-guided core biopsy recommended (BI-RADS 4). [facility] Medical History Sleep apnea GERD (gastroesophageal reflux disease) Osteoarthritis of hands, bilateral Osteoarthritis of knees, bilateral Flexor tenosynovitis of finger Bilateral hand pain Depression ESR raised Polyarthralgia Vitamin D deficiency Multinodular thyroid Hypothyroidism Surgical History Hx of colonoscopy Hx of tooth extraction Hx of endoscopy Hx of bilateral breast reduction surgery Family History Father Prostate cancer Hypothyroidism Mother Kidney problem Stroke Brother Kidney problem Sister Cancer of kidney Social History Household Members: None Household Members Other:: Lives alone Housing: House Are you a primary physician locums urgent care to a significant other at home: No Do you presently have visiting nurse or other home services: Yes (UPFITTER) 75 years or older and lives alone: No Alcohol intake: never Patient Tobacco Use Status: Never used Tobacco e-Cigarette/Vaping Use: Never Used service: No Current occupational status: disabled Female Reproductive History Menstrual Age of Menarche: 12 Total pregnancies: 0 Review of Systems Narrative Review of Systems - Breast: Denies history of breast problems or infections post-surgery. - Skin: Reports a tendency to form keloid scars. - Endocrine: Reports last menstrual period was 1.5 years ago. - Denies use of hormone replacement therapy. Const All systems reviewed & are unremarkable except as noted in HPI and below Physical Exam Vital Signs: BMI result Body Mass Index 36.0 Const General: cooperative and no acute distress Nutritional Appearance: well nourished Orientation/consciousness: patient oriented x3 Limitations: no limitations HEENT Head: Yes normocephalic and Yes atraumatic Ears: hearing grossly normal bilaterally Chest Other: Bilateral breast reduction surgery well-healed keyhole incisions. Left breast: No skin change, no nipple retraction, no nipple discharge, no palpable mass, no enlarged lymph nodes. Right breast: No skin change, no nipple retraction, no nipple discharge, no palpable mass, no enlarged lymph nodes Resp Effort & Inspection: normal respiratory effort, no audible wheezes, no cough and no respiratory distress Cardio Jugular venous distension: no JVD GI Inspection: Yes normal to inspection Skin Other: Warm, dry, no rash Neuro General: patient oriented x3 Extrem General: Yes no clubbing, cyanosis or edema Assessment & Plan Assessment & Plan (1) Abnormal ultrasound of breast: Code(s): R92.8 - Other abnormal and inconclusive findings on diagnostic imaging of breast Category: Medical (2) Abnormal mammogram of left breast: Code(s): R92.8 - Other abnormal and inconclusive findings on diagnostic imaging of breast Category: Medical Plan 54-year-old female patient presenting with a recent mammogram and ultrasound which revealed a hypoechoic heterogeneous mass on ultrasound at the 1 o'clock position 1 cm from the nipple felt to be suspicious for malignancy. This correlates with the focal asymmetry noted on mammogram as well. She is scheduled for an ultrasound-guided core biopsy later today at the [facility]. I reviewed the radiologic studies in detail with the patient and her questions were answered to her apparent satisfaction. Examination today revealed no suspicious findings in either breast. There are well-healed bilateral breast reduction incisions with some expected scar tissue. No enlarged lymph nodes are appreciated. I recommended the patient return in 1 week to review the pathology results and discuss treatment options as necessary. She expressed understanding and agrees with the plan. Orders: Orders US breast ndl core biopsy LT Today R92.8 - Other abnormal and inconclusive findings on diagnostic imaging of breast Coding Level of Care Code New Pt Level 4 (86452) Diagnoses Abnormal ultrasound of breast R92.8 Abnormal mammogram of left breast R92.8
[2025-06-03 08:35] VITALS: BMI 36.0
--- OUTSIDE RECORDS SUMMARY | 2025-06-03 08:40 | XMS_ITS | Encounter Summary ---
Author Organization [employer] Address [address] [facility] [address] [place] [address] Care Team Providers Care Office Coordinator Name Role Phone Olamide Chandler MD Primary Care Provide r Encounter Details Date Type Department Care Team ([facility] st Contact Info) Description 08/09/2024 Orders Only [facility] [address] [place], [place] [phone] Olamide Chandler MD [address] [place], [place] [phone] Social History Tobacco Use Types Packs/Day Years [...] Description 07/12/2025 11:15 AM EST Office Visit [facility] [address] [place] [address] Brittney Graham MD [address] [place] [address] documented as of this encounter Visit Diagnoses Not on filedocumented in this encounter Additional Health Concerns Assessment Noted Time PHQ-9 Depression Total Score: 25 024 9:17 AM EDT documented as of this encounter Care Teams Office Coordinator Relationship Specialty Start Date End Date Olamide Chandler MD [address] [place] [address] PCP - General Family Medicine 07/28/20 documented as of this encounter
--- OUTSIDE RECORDS SUMMARY | 2025-06-03 08:40 | XMS_ITS | Encounter Summary ---
Author Organization [employer] Address [address] [facility] [address] [place] [address] Care Team Providers Care Low Voltage Technician Name Role Phone Olamide Chandler MD Primary Care Provide r Reason for Visit * Reason Onset Date Comments Pre-visit Planning 03/02/2024 Encounter Details Date Type Department Care Team ([facility] st Contact Info) Description 03/02/2024 Telephone [facility] [address] [place], [place] [phone] Olamide Chandler MD [address] [place], [place] [phone] Pre-visit Planning Social History Tobacco Use Types [...] Description 07/12/2025 11:15 AM EST Office Visit [facility] [address] [place] [address] Brittney Graham MD [address] [place] [address] documented as of this encounter Visit Diagnoses Not on filedocumented in this encounter Additional Health Concerns Assessment Noted Time PHQ-9 Depression Total Score: 18 024 9:06 AM EST documented as of this encounter Care Teams Low Voltage Technician Relationship Specialty Start Date End Date Olamide Chandler MD [address] [place] [id number] PCP - General Family Medicine 07/28/20 documented as of this encounter
--- OUTSIDE RECORDS SUMMARY | 2025-06-03 08:40 | XMS_ITS | Clinical Summary ---
Author Organization [employer] Address [address] [place] [address] [address] [place] [address] Care Team Providers Care Zipper Measurer Name Role Phone Olamide Chandler MD Primary [...] in the morning. 023 Active sodium chloride (Ware Nasal [place]) 0.65 % nasal sprayIndications: COVID-19 1-2 sprays [...] or itching 40 capsule 1 024 Active pseudoephedrine (Sudafed) 30 MG tablet Take [...] (BMI) of 45.0 to 49.9 in adult ([facility]) Inject 0.5 mL (5 mg) under the skin 1 (one) time per week. 2 mL 025 Active Tirzepatide-Weigh t Management (Zepbound) 2.5 MG/0.5ML solution auto-injectorIndi cations:Class 3 severe obesity due to excess calories with serious comorbidity and body mass index (BMI) of 45.0 to 49.9 in adult ([facility]) Inject 0.5 mL (2.5 mg) [...] THE MORNING 90 tablet 1 025 Active ammonium lactate (Lac-Hydrin) 12 % lotionIndications :Dry skin dermatitis Apply topically if needed for dry skin. 225 g 1 024 2024 cholecalciferol VITAMIN D (Vitamin D-3) 50 MCG [...] unspecified whether stage 3a or 3b CKD ([facility]) 01/18/2025 Anxiety with depression 01/18/2025 Assessment & [...] PM EDT): Patient is being follow by core fitter I will c/w zepbound 2.5mg weekly, I [...] It seems to be Poison [place] or [place] rash. We discuss about avoiding scratching, use [...] Encounters Date Type Department Care Team Description 05/22/2025 Orders Only [facility] [address] [place] [address] Olamide Chandler MD 05/20/2025 Refill [facility] [address] [place] [address] Olamide Chandler MD Vitamin D deficiency; Seasonal allergies; Other specified hypothyroidism 05/17/2025 Refill [facility] [address] [place] [address] Olamide Chandler MD Other specified hypothyroidism 04/24/2025 Results Follow-Up [facility] [address] [place] [address] Olamide Chandler MD XR Hip 2 or 3 Views Right 04/13/2025 Refill [facility] [address] [place] [address] Olamide Chandler MD Gastroesophageal reflux disease, unspecified whether esophagitis present 04/11/2025 11:15 AM EDT Office Visit [facility] [address] [place] [address] Olamide Chandler MD Essential hypertension (Primary Dx); Right hip pain; Vertigo; Encounter for immunization; Fibromyalgia 04/11/2025 Travel 04/10/2025 Telephone [facility] [address] [place] [address] Olamide Chandler MD Chart Prep 04/04/2025 Travel 04/02/2025 Orders Only GENERIC EXTERNAL DATA DEPARTMENT Provider, Generic External Data 03/07/2025 Telephone [facility] [address] [place] [phone] Olamide Chandler MD from Last 3 Months [...] Description 07/12/2025 11:15 AM EST Office Visit [facility] [address] [place] [address] Brittney Graham MD [address] [place] [address] Health Maintenance Due Date Last Done Comments CT Colonography 1971 FIT DNA/Cologuard 1971 FIT 1971 FOBT 1970 HIV Screening 1970 Sigmoidoscopy 1970 Hepatitis C Screening 10/21/1989 RSV Patients and Patients Aged 60 years or older (1 - Risk 50-74 years 1-dose series) 10/21/2021 COVID-19 Vaccine ( season) 2025 10/28/2023, 06/22/2021, 09/10/2020, Additional history exists Diagnostic Breast Imaging 06/22/20252024, 05/22/2025, 11/14/2024, Additional history exists Depression Monitoring 10/10/2025 04/11/2025, 025 SDOH Screening 01/08/2026 01/08/2025 Alcohol/Substance Use Screening [...] Priority Date/Time Associated Diagnosis Comments BI MAMMOGRAM DIAGNOSTIC TOMOSYNTHESIS LEFT Routine 05/22/2025 3:05 PM EST BI US BREAST LIMITED LEFT Routine 05/22/2025 3:01 PM EST XR HIP 2 OR 3 VIEWS RIGHT Routine 04/18/2025 10:12 AM EDT Right hip pain CULTURE, URINE, ROUTINE Routine 04/02/2025 7:56 AM EDT HEMOGLOBIN A1C Routine 02/19/2025 12:31 PM EDT Burning sensation LIPID PANEL WITH REFLEX TO DIRECT LDL Routine 03/29/2024 9:50 AM EDT Essential hypertension IMAGE-GUIDED PAP W/AGE BASED SCR,W/CT/NG/TRICH Routine 10/29/2022 11:29 AM EDT Encounter for Papanicolaou smear for cervical cancer screening HM COLONOSCOPY Routine 04/12/2022 10:07 PM EDT from Last 3 Months or Most Recently Relevant to Health Maintenance Results * BI Mammogram Diagnostic Tomosynthesis Left (05/22/2025 3:05 PM EST) Anatomical Region Laterality Modality Breast Left Mammography 05/22/2025 3:05 PM EST Narrative 05/23/2025 9:18 AM EST [place] [facility] [address] [place] [address] Mammography Report Signed Patient: Laisha Ye I MR#: M [id number] : 1970 Acct:[id number] Age/Sex: 54 / F ADM Date: 05/22/25 Loc: HO.MAMMO Attending Dr: Olamide Stevens MD Ordering Physician: Olamide Chandler MD Results: 4Suspicious Date of Service: 05/22/25 Follow Up: Biopsy Recommend ed Procedure(s): MM tomosynthesis diagnostic LT Accession Number(s): [id number] cc: Olamide Chandler MD Reason For Exam: LT BR 6M F/U NODULE EXAMINATION: MM DIAGNOSTIC DIGITAL BREAST TOMOSYNTHESIS, LEFT CLINICAL INFORMATION: 6 month follow-up for focal asymmetry in the left breast with associated hyperechoic area on ultrasound. COMPARISON: Mammography: Prior imaging on PACS. TECHNIQUE: Digital breast tomosynthesis is performed in both the craniocaudal and mediolateral oblique views along with computer-aided detection (CAD). Synthesized 2D images are generated from the tomosynthesis. FINDINGS: There are scattered areas of fibroglandular density. Focal asymmetry in the upper outer breast anterior depth similar-appearing to prior's. No suspicious calcifications or other abnormal findings. Targeted color Doppler ultrasound scanning in the left breast at 1:00 1 cm from nipple demonstrates a heterogeneous hyperechoic oval mass measuring 8 x 4 x 7 mm probable correlate for the focal asymmetry on mammography. MM/MM tomosynthesis diagnostic LT IMPRESSION: Heterogeneous hyperechoic mass on ultrasound 1:00 1 cm from the nipple probable correlate for focal asymmetry on mammography. Recommend ultrasound-guided core needle biopsy at this time for confirmation. The findings and recommendations were discussed with the patient the procedure will be scheduled. ASSESSMENT: BI-RADS Category 4: Suspicious RECOMMENDATION: Biopsy recommended Results were discussed with the patient at time of visit. Electronically signed by: Deana Shafer DO 05/23/2025 09:16 AM EST Dictated By: Deana Shafer DO Signed By: <Electronically signed by Deana Shafer DO in OV> 05/23/25 0916 DD/ 1505 TD/TT: 05/22/25 1511 Pediatrician Active Practice: Procedure Note Donotuseinterpreter, [facility] - [facility] [address] [place] [address] Mammography Report Signed Patient: Laisha Ye IMR#: M [id number] : 1970Acct:[id number] Age/Sex: 54 / FADM Date: 05/22/25 Loc: HO.MAMMO Attending Dr: Olamide Stevens MD Ordering Physician: Olamide Chandler MDResults: 4Suspicious Date of Service: 05/22/25Follow Up: Biopsy Recommend ed Procedure(s): MM tomosynthesis diagnostic LT Accession Number(s): [id number] cc: Olamide Chandler MD Reason For Exam: LT BR 6M F/U NODULE EXAMINATION: MM DIAGNOSTIC DIGITAL BREAST TOMOSYNTHESIS, LEFT CLINICAL INFORMATION: 6 month follow-up for focal asymmetry in the left breast with associated hyperechoic area on ultrasound. COMPARISON: Mammography: Prior imaging on PACS. TECHNIQUE: Digital breast tomosynthesis is performed in both the craniocaudal and mediolateral oblique views along with computer-aided detection (CAD). Synthesized 2D images are generated from the tomosynthesis. FINDINGS: There are scattered areas of fibroglandular density. Focal asymmetry in the upper outer breast anterior depth similar-appearing to prior's. No suspicious calcifications or other abnormal findings. Targeted color Doppler ultrasound scanning in the left breast at 1:00 1 cm from nipple demonstrates a heterogeneous hyperechoic oval mass measuring 8 x 4 x 7 mm probable correlate for the focal asymmetry on mammography. MM/MM tomosynthesis diagnostic LT IMPRESSION: Heterogeneous hyperechoic mass on ultrasound 1:00 1 cm from the nipple probable correlate for focal asymmetry on mammography. Recommend ultrasound-guided core needle biopsy at this time for confirmation. The findings and recommendations were discussed with the patient the procedure will be scheduled. ASSESSMENT: BI-RADS Category 4: Suspicious RECOMMENDATION: Biopsy recommended Results were discussed with the patient at time of visit. Electronically signed by: Deana Shafer DO 05/23/2025 09:16 AM EST RP Dictated By: Deana Shafer DO Signed By: <Electronically signed by Deana Shafer DO in OV> 05/23/25 0916 DD/ 1505 TD/TT: 05/22/25 1511 Pediatrician Active Practice: us Olamide Stevens MD IMG BI PROCEDURES Harish johanna Result - Final * BI US Breast Limited Left (05/22/2025 3:01 PM EST) Anatomical Region Laterality Modality Breast Left Ultrasound 05/22/2025 3:01 PM EST Narrative 05/23/2025 9:18 AM EST [facility] [place] [address] Ultrasound Report Signed Patient: Laisha Ye I MR#: M [id number] : 1970 Acct:[id number] Age/Sex: 54 / F ADM Date: 05/22/25 Loc: HO.MAMMO Attending Dr: Olamide Stevens MD Ordering Physician: Olamide Chandler MD Date of Service: 05/22/25 Procedure(s): US Breast LT Limited Mamm Only Accession Number(s): [id number] cc: Olamide Chandler MD Reason for Exam: LT BR 6M F/U NODULE EXAMINATION: MM DIAGNOSTIC DIGITAL BREAST TOMOSYNTHESIS, LEFT CLINICAL INFORMATION: 6 month follow-up for focal asymmetry in the left breast with associated hyperechoic area on ultrasound. COMPARISON: Mammography: Prior imaging on PACS. TECHNIQUE: Digital breast tomosynthesis is performed in both the craniocaudal and mediolateral oblique views along with computer-aided detection (CAD). Synthesized 2D images are generated from the tomosynthesis. FINDINGS: There are scattered areas of fibroglandular density. Focal asymmetry in the upper outer breast anterior depth similar-appearing to prior's. No suspicious calcifications or other abnormal findings. Targeted color Doppler ultrasound scanning in the left breast at 1:00 1 cm from nipple demonstrates a heterogeneous hyperechoic oval mass measuring 8 x 4 x 7 mm probable correlate for the focal asymmetry on mammography. US/US Breast LT Limited Mamm Only IMPRESSION: Heterogeneous hyperechoic mass on ultrasound 1:00 1 cm from the nipple probable correlate for focal asymmetry on mammography. Recommend ultrasound-guided core needle biopsy at this time for confirmation. The findings and recommendations were discussed with the patient the procedure will be scheduled. ASSESSMENT: BI-RADS Category 4: Suspicious RECOMMENDATION: Biopsy recommended Results were discussed with the patient at time of visit. Electronically signed by: Deana Shafer DO 05/23/2025 09:16 AM EST Dictated By: Deana Shafer DO Signed By: <Electronically signed by Deana Shafer DO in OV> 05/23/25 0916 DD/ 1501 TD/TT: 05/22/25 1530 Pediatrician Active Practice: Procedure Note Donotuseinterpreter, Image - 05/23/2025 [facility] [address] [place] [address] Ultrasound Report Signed Patient: Laisha Ye IMR#: M [id number] : 1970Acct:[id number] Age/Sex: 54 / FADM Date: 05/22/25 Loc: HO.MAMMO Attending Dr: Olamide Stevens MD Ordering Physician: Olamide Chandler MD Date of Service: 05/22/25 Procedure(s): US Breast LT Limited Mamm Only Accession Number(s): [id number] cc: Olamide Chandler MD Reason for Exam: LT BR 6M F/U NODULE EXAMINATION: MM DIAGNOSTIC DIGITAL BREAST TOMOSYNTHESIS, LEFT CLINICAL INFORMATION: 6 month follow-up for focal asymmetry in the left breast with associated hyperechoic area on ultrasound. COMPARISON: Mammography: Prior imaging on PACS. TECHNIQUE: Digital breast tomosynthesis is performed in both the craniocaudal and mediolateral oblique views along with computer-aided detection (CAD). Synthesized 2D images are generated from the tomosynthesis. FINDINGS: There are scattered areas of fibroglandular density. Focal asymmetry in the upper outer breast anterior depth similar-appearing to prior's. No suspicious calcifications or other abnormal findings. Targeted color Doppler ultrasound scanning in the left breast at 1:00 1 cm from nipple demonstrates a heterogeneous hyperechoic oval mass measuring 8 x 4 x 7 mm probable correlate for the focal asymmetry on mammography. US/US Breast LT Limited Mamm Only IMPRESSION: Heterogeneous hyperechoic mass on ultrasound 1:00 1 cm from the nipple probable correlate for focal asymmetry on mammography. Recommend ultrasound-guided core needle biopsy at this time for confirmation. The findings and recommendations were discussed with the patient the procedure will be scheduled. ASSESSMENT: BI-RADS Category 4: Suspicious RECOMMENDATION: Biopsy recommended Results were discussed with the patient at time of visit. Electronically signed by: Deana Shafer DO 05/23/2025 09:16 AM EST Dictated By: Deana Shafer DO Signed By: <Electronically signed by Deana Shafer DO in OV> 05/23/25 0916 DD/ 1501 TD/TT: 05/22/25 1530 Pediatrician Active Practice: us Olamide Stevens MD IMG US PROCEDURES Harish johanna Result - Final * XR Hip 2 or 3 Views Right (04/18/2025 10:12 AM EDT) Anatomical Region Laterality Modality Lower Extremities, Hip Right Radiograp hic Imaging 04/18/2025 10:1 2 AM EDT Narrative 04/18/2025 10:24 AM EDT [address] [address] XRay Report Signed Patient: Laisha Ye I MR#: M [id number] : 1970 Acct:[id number] Age/Sex: 54 / F ADM Date: 04/18/25 Loc: [facility] Attending Dr: Olamide Stevens MD Ordering Physician: Olamide Chandler MD Date of Service: 04/18/25 Procedure(s): XR hip RT min 2V Accession Number(s): [id number] cc: Olamide Chandler MD Reason for Exam: [...] 04/18/25 1020 DD/ 1012 TD/TT: 04/18/25 1015 Pediatrician Active Practice: Procedure Note Donotuseinterpreter, Image - 04/18/2025 [place] [address] XRay Report Signed Patient: Laisha Ye [facility]#: M [id number] : 1970Acct:[id number] Age/Sex: 54 / FADM Date: 04/18/25 Loc: [facility] Attending Dr: Olamide Stevens MD Ordering Physician: Olamide Chandler MD Date of Service: 04/18/25 Procedure(s): XR hip RT min 2V Accession Number(s): [id number] cc: Olamide Chandler MD Reason for Exam: [...] 04/18/25 1020 DD/ 1012 TD/TT: 04/18/25 1015 Pediatrician Active Practice: us Olamide Stevens MD IMG XR PROCEDURES Harish johanna Result - Final * Culture, Urine, Routine (04/02/2025 7:56 AM EDT) Urine Urine specimen obtained by clean catch procedure / Unknown 04/02/2025 7:56 AM EDT 04/02/2025 5:24 PM EDT Comment:UACC Narrative [facility] - 04/04/2025 10:19 AM EDT Urine Culture Report Result Urine Culture 10,000 to 50,000 cfu/ml Urine Culture Mixed bacterial marge characteristic of Urine Culture urogenital contamination. Specimen Source: Urine clean catch us Generic External Data Provider LAB MICROBIOLOGY - GENERAL ORDERABLES Final Result [facility] [address] [place] [phone] * Hemoglobin A1c (02/19/2025 12:31 PM EDT) Hemoglobin A1c 5.4 <6.0 % [facility] Comment:Hemoglobin A1C Refer ence Range Adults: 4.8 - 6.0 % Non diabetic: < 6.0 % Goal: < 7.0 %Additional Action Suggested: > 8.0 %Note: Hemoglobin A1c results are invalid for patients with abnormal amounts of HbF. Blood transfusions may impact the HbA1c concentration in the patient sample. Estimated Average Glucose 108 mg/dL [facility] Comment:eAG = Estimated ave rage glucose which is %A1C expressed asaverage glucose, using the formula of the A6H-ZqngppsSicqqit Glucose study (ADAG), Diabetes Care, Vol.31,#8,Jan. 2007 Blood Venous blood specimen / Unknown 02/19/2025 12:31 PM EDT 02/19/2025 4:10 PM EDT us Olamide Stevens MD LAB BLOOD ORDERABLES Final Result Performing Organization Address [facility] Co de Phone Number [facility] [address] [place] [address] [phone] * (ABNORMAL) Lipid Panel with Reflex to Direct LDL (03/29/2024 9:50 AM EDT) Triglycerides 89 <150 mg/dL [facility] Comment:Desirable Triglyceri de: less than 150 mg/dLBorderline High Triglyceride 150-199 mg/dLHigh Triglyceride: 200-499 mg/dLVery High Triglyceride: greater than or equal to 5OO mg/dL Cholesterol 168 <200 mg/dL [facility] Comment:Desirable Cholestero l: less than 200 mg/dLBorderline High Cholesterol: 200-239 mg/dLHigh Cholesterol: greater than 239 mg/dL LDL Cholesterol Calculated 107(H) <100 mg/dL [facility] Comment:Desirable LDL: less than 100 mg/dLNear Optimal/Above Optimal LDL: 110- 129 mg/dLBorderline High LDL: 130-159 mg/dLHigh LDL: 160-189 mg/dLVery High LDL: greater than or equal to 190 mg/dL HDL Cholesterol 44 >40 mg/dL [facility] Comment:Desirable HDL: great er than 40 mg/dL Note: This HDL assay may give artificially low results in patients with liver disease. Blood 03/29/2024 9:50 AM EDT 03/29/2024 11:08 AM EDT us Olamide Stevens MD LAB BLOOD ORDERABLES Final Result Performing Organization Address City/[facility]/ZIP Co de Phone Number [facility] [address] [place] [address] [phone] * Image-Guided Pap with Age-Based Screening??with CT/NG,??Trichomonas (10/29/2022 11:29 AM EDT) Comment [employer] Comment: This order for age-based cervical cancer and STI screening follows ACOG guidelines(PB 168, 140, PRT548). See individual assays for performing site location. Clinical Information: 52 Y/O F NO PREVIOUS ABNORMALITY C [employer] LMP: NONE GIVEN [facility] [place] [employer] Prev. PAP: NONE GIVEN [facility] [place] [employer] Prev. BX: NONE GIVEN [facility] [place] [employer] SOURCE: None given [employer] Statement Of Adequacy: [employer] Comment: Satisfactory for evaluation. Endocervical/transformation zone component absent. Interpretation/Re sult: Negative for intraepithelial lesion or malignancy. [facility] [employer] Comment: This Pap test has been evaluated with computer assisted technology. [facility] [place] [employer] Thermal Engineer: [employer] Comment: EXJ, CT(ASCP) CT Screening Location: [address] [address] (Always Message) [facility] clipkit Comment: EXPLANATORY NOTE: The Pap is a [...] HPV nRNA E6/E7 Not Detected Not Detected [facility] [facility] Comment: Methodology: [employer]-Mediated Amplification This assay detects E6/E7 viral messenger RNA (mRNA) from 14 high-risk HPV types (16,18,31,33,35,39,45,51,52,56,58,59,66,68). Cervical sources are required for HPV testing. If a vaginal source from a patient who has had a total hysterectomy with removal of cervix was submitted, please contact the testing laboratory for alternative testing options. For additional information, please refer to http://education.[employer]/faq/LLH921r8 (This link if provided for information/ educational purposes only.) Chlamydia trachomatis RNA, TMA, Urogenital NOT DETECTED NOT DETECTED [employer] Neisseria gonorrhoeae RNA, TMA, Urogenital NOT DETECTED NOT DETECTED [facility] [employer] Comment [facility] [employer] Comment: The analytical performance characteristics of this assay, when used to test SurePath(TM) specimens have been determined by [facility]. The modifications have not been cleared or approved by the FDA. This assay has been validated pursuant to the CLIA regulations and is used for clinical purposes. For additional information, please refer to https://[employer]/faq/JOD163 (This link is being provided for information/ educational purposes only.) Trichomonas vaginalis, QL, TMA, PAP Vial NOT DETECTED NOT DETECTED [facility] [employer] Comment: The analytical performance characteristics of this assay have been determined by [facility]. The modifications have not been cleared or approved by the FDA. This assay has been validated pursuant to the CLIA regulations and is used for clinical purposes. For additional information, please refer to http://[employer]/ faq/Trichomonastma (This link is being provided for information/ educational purposes only.) Pap Vial 10/29/2022 11:2 9 AM EDT 10/31/2022 4:55 PM EDT Olamide Stevens MD LAB CYTOLOGY ORDERABL ES Final Result [facility] [address], [facility] [place] [address] [facility] [employer] [address] [place] [address] * Hm Colonoscopy (04/12/2022 10:07 PM EDT) Historical Provider HEALTH MAINTENANCE Final Result from Last 3 Months or Most Recently Relevant to Health Maintenance Insurance [facility] CARE < 65 Care Teams Zipper Measurer Relationship Specialty Start Date End Date Olamide Chandler MD [address] [place] [address] PCP - General Family Medicine 07/28/20
--- OUTSIDE RECORDS SUMMARY | 2025-06-03 08:40 | XMS_ITS | Clinical Summary ---
Author Organization [facility] Address [address] [place] [address] Phone Care Team Providers Care Glassware Finisher Name Role Phone Unavailable Primary Care Provider [...]
--- OUTSIDE RECORDS SUMMARY | 2025-06-03 08:40 | XMS_ITS | Encounter Summary ---
Author Organization [employer] Address [address] [facility] 7t [place] [address] Care Team Providers Care Vehicle Check In Clerk Name Role Phone Olamide Chandler MD Primary Care Provide r Encounter Details Date Type Department Care Team (Late Contact Info) Description 09/01/2022 Orders Only [facility] [address] [place] [phone] Renée Okeefe MA Social History Tobacco Use [...] Description 07/12/2025 11:15 AM EST Office Visit [facility] [address] [place] [address] Brittney Graham MD [address] [place] [address] documented as of this encounter Procedures Procedure [...] (04/17/2023 1:20 AM EDT) Color Urine Yellow [facility] Appearance Urine Clear [facility] PH 6.0 5.0 - 9.0 [facility] Glucose Urine UA Negative Negative mg/dL [facility] Urine Blood Negative Negative [facility] Specific [place] - Urine <=1.005 1.005 - 1.025 [facility] Urine Protein Negative Neg-Trace mg/dL [facility] Urine Ketones Negative Negative mg/dL [facility] Nitrite Urine Negative Negative [facility] Leukocyte Esterase Urine Trace(A) Negative [facility] RBC Urine 0-2 0 - 2 /HPF [facility] Urine WBC 0-5 0 - 5 /HPF [facility] Urine Squamous Epithelial Cell 0-2 0 - 2 /HPF [facility] Urine Bacteria None Seen None Seen [facility] Hyaline Casts, Urine 0-2 0 - 2 /LPF [facility] 04/17/2023 1:20 AM EDT 04/17/2023 1:23 AM EDT Narrative [facility] - 04/17/2023 1:42 AM EDT [id number], Clean Catch us [facility] External Provider LAB URI NE ORDERABLES Final Result Performing Organization Address [facility]/ZIP Co de Phone Number [facility] [address] [place] [address] [phone] * B Type Natriuretic Peptide (BNP) (04/17/2023 12:46 AM EDT) B Type Natriuretic Peptide 44 <100 pg/mL [facility] Comment:For those patients w ho are being treated with Natrecor(nesiritide, recombinant BNP), BNP testing should beperformed at least two hours post treatment in order toensure that only endogenous levels of BNP are detected. 04/17/2023 12:4 6 AM EDT 04/17/2023 12:53 AM EDT [facility] External Provider LAB BLO OD ORDERABLES Final Result Performing Organization Address [facility] Co de Phone Number [facility] [address] [place] [address] [phone] * BI Mammogram Screening Tomosynthesis Bilateral (09/09/2022 8:30 AM EDT) Anatomical Region Laterality Modality Breast Bilateral Mammography 09/09/2022 8:30 AM EDT Narrative 09/10/2022 11:56 AM EDT [facility] [address] [place] [address] Mammography Report Signed Patient: Laisha Ye I MR#: M [id number] : 1970 Acct:[id number] Age/Sex: 51 / F ADM Date: 09/09/22 Loc: HO.MAMMO Attending Dr: Olamide Stevens MD Ordering Physician: Olamide Chandler MD Results: 1Negative Date of Service: 09/09/22 Follow Up: 1 Year From Orig inal Mammogram Procedure(s): MM tomosynthesis screening BI Accession Number(s): [id number] cc: Olamide Chandler MD EXAMINATION: MM SCREENING [...] in OV> 09/10/22 1153 DD/ 0830 TD/TT: Rejector: SK Procedure Note Donotuseinterpreter, Image - 09/10/[address] [place] [facility] [address] [place], [place] [address] Mammography Report Signed Patient: Laisha Ye IMR#: M [id number] : 1970Acct:[id number] Age/Sex: 51 / FADM Date: 09/09/22 Loc: HO.MAMMO Attending Dr: Olamide Stevens MD Ordering Physician: Olamide Chandler MDResults: 1Negative Date of Service: 09/09/22Follow Up: 1 Year From Orig inal Mammogram Procedure(s): MM tomosynthesis screening BI Accession Number(s): [id number] cc: Olamide Chandler MD EXAMINATION: MM SCREENING [...] in OV> 09/10/22 1153 DD/ 0830 TD/TT: Rejector: SAURAV [facility] External Provider IMG BI PROCEDURES Edited Result - Final documented in this encounter Visit Diagnoses Not on filedocumented in this encounter Care Teams Vehicle Check In Clerk Relationship Specialty Start Date End Date Olamide Chandler MD [address] [place] [address] PCP - General Family Medicine 07/28/20 documented as of this encounter
--- OUTSIDE RECORDS SUMMARY | 2025-06-03 08:40 | XMS_ITS | Encounter Summary ---
Author Organization [employer] Address [address] [facility] 7t [place] [address] Care Team Providers Care Groundskeeper Porter Name Role Phone Olamide Chandler MD Primary Care Provide r Reason for Visit * Reason Comments Med Refill Encounter Details Date Type Department Care Team (Late st Contact Info) Description 11/03/2024 Refill [facility]INE [address] [place], [place] [phone] Olamide Chandler MD [address] [place], [place] [phone] Class 3 severe obesity due to excess [...] 11:15 AM EST Office Visit [facility] MED[facility]INE [address] [place] [address] Brittney Graham MD [address] [place] [address] documented as of this encounter Visit Diagnoses Diagnosis Class 3 severe obesity due to excess calories with serious comorbidity and body mass index (BMI) of 45.0 to 49.9 in adult (HCC) documented in this encounter Additional Health Concerns Assessment Noted Time PHQ-9 Depression Total Score: 25 024 9:17 AM EDT documented as of this encounter Care Teams Groundskeeper Porter Relationship Specialty Start Date End Date Olamide Chandler MD [address] [place] [address] PCP - General Family Medicine 07/28/20 documented as of this encounter
--- OUTSIDE RECORDS SUMMARY | 2025-06-03 08:40 | XMS_ITS | Clinical Summary ---
Author Organization [facility], Address [address] [place] [address] [place] [address] Phone Care Team Providers Care Boat Operator Name Role Phone Olamide Chandler MD [...] 4 Contact dermatitis caused by urushiol from Unified poison james 12/28/2023 Bilateral lower leg edema [...] Visit [facility] [address] [place] [address] Mahendra Medel, [address] [place] [phone] Health Maintenance Due Date Last Done Comments [...] (6 to 49 Years) Discontinued 10/28/2023 Insurance [facility] One Care Dual SNP ([id number]) NADIR WALKER [id number] Care Teams Boat Operator Relationship Specialty Start Date End Date Olamide Chandler MD [address] [place] [address] [place] [phone] PCP - General Internal Medicine 10/27/23
--- OUTSIDE RECORDS SUMMARY | 2025-06-03 08:40 | XMS_ITS | Encounter Summary ---
Author Organization [employer] Address [address] [facility] 7t [place] [address] Care Team Providers Care Precision Structural Metal Fitter Name Role Phone Olamide Chandler MD Primary Care Provide r Encounter Details Date Type Department Care Team (Late st Contact Info) Description 10/19/2024 Orders Only [facility] [address] [place] [address] Provider, MD Maurisio Social History Tobacco Use [...] Description 07/12/2025 11:15 AM EST Office Visit [facility] [address] [place] [address] Brittney Graham MD [address] [place], [place] [phone] documented as of this encounter Procedures Procedure [...] AM EDT Narrative 11/14/2024 3:08 PM EDT [facility] [address] [place] [address] Ultrasound Report Signed Patient: Laisha Ye I MR#: M [id number] : 1970 Acct:[id number] Age/Sex: 54 / F ADM Date: 11/14/24 Loc: HO.MAMMO Attending Dr: Olamide Stevens MD Ordering Physician: Olamide Chandler MD Date of Service: 11/14/24 Procedure(s): US breast LT limited mamm only Accession Number(s): [id number] cc: Olamide Chandler MD EXAMINATION: MM DIAGNOSTIC [...] 11/14/24 1505 DD/ 1100 TD/TT: 11/14/24 1100 Cotton Classer: Procedure Note Donotuseinterpreter, Image - 11/14/2024 [facility] [address] [place], [place] [address] Ultrasound Report Signed Patient: Laisha Ye IMR#: M [id number] : 1970Acct:[id number] Age/Sex: 54 / FADM Date: 11/14/24 Loc: HO.MAMMO Attending Dr: Olamide Stevens MD Ordering Physician: Olamide Chandler MD Date of Service: 11/14/24 Procedure(s): US breast LT limited mamm only Accession Number(s): [id number] cc: Olamide Chandler MD EXAMINATION: MM DIAGNOSTIC [...] 11/14/24 1505 DD/ 1100 TD/TT: 11/14/24 1100 Cotton Classer: us Olamide Stevens MD IMG US PROCEDURES Fin al Result * BI Mammogram Diagnostic Tomosynthesis added left (11/14/2024 10:30 AM EDT) Anatomical Region Laterality Modality Breast Left Mammography 11/14/2024 10:3 0 AM EDT Narrative 11/14/2024 3:08 PM EDT [facility] [address] [place] [address] Mammography Report Signed Patient: Laisha Ye I MR#: M [id number] : 1970 Acct:[id number] Age/Sex: 54 / F ADM Date: 11/14/24 Loc: HO.MAMMO Attending Dr: Olamide Stevens MD Ordering Physician: Olamide Chandler MD Results: 3.6MProbably Benign Finding - Short 6 M F/U Suggested Date of Service: 11/14/24 Follow Up: 6 Month F/U Procedure(s): MM tomosynthesis added views L Accession Number(s): [id number] cc: Olamide Chandler MD EXAMINATION: MM DIAGNOSTIC [...] 11/14/24 1505 DD/ 1030 TD/TT: 11/14/24 1100 Cotton Classer: Procedure Note Donotuseinterpreter, Image - 11/14/2024 [facility] [address] [place] [address] [place] [address] Mammography Report Signed Patient: Laisha Ye [facility]#: M [id number] : 1970Acct:[id number] Age/Sex: 54 / FADM Date: 11/14/24 Loc: HO.MAMMO Attending Dr: Olamide Stevens MD Ordering Physician: Olamide Chandler MD Results: 3.6MProbably Benign Finding - Short 6 M F/U Suggested Date of Service: 11/14/24Follow Up: 6 Month F/U Procedure(s): MM tomosynthesis added views L Accession Number(s): [id number] cc: Olamide Chandler MD EXAMINATION: MM DIAGNOSTIC [...] 11/14/24 1505 DD/ 1030 TD/TT: 11/14/24 1100 Cotton Classer: us Olamide Stevens MD IMG BI PROCEDURES Fin al Result * Hm Colonoscopy (04/12/2022 10:07 PM EDT) us Historical Provider HEALTH MAINTENANCE Final Result documented in this encounter Visit Diagnoses Not on filedocumented in this encounter Additional Health Concerns Assessment Noted Time PHQ-9 Depression Total Score: 024 9:17 AM EDT documented as of this encounter Care Teams Precision Structural Metal Fitter Relationship Specialty Start Date End Date Olamide Chandler MD [address] [place] [address] PCP - General Family Medicine 07/28/20 documented as of this encounter
--- OUTSIDE RECORDS SUMMARY | 2025-06-03 08:40 | XMS_ITS | Data Portability ---
Author Organization [place] - [facility] Address [address] [address] Care Team Providers Care Property Administrator Name Role Phone PEGGY GILES Primary Care Provider Assessment Encounter Date Assessment Date Assessment LastModified by Organization Details LastModified Time 02/06/2025 02/06/2025 54 year old female, with a history of KARLA on CPAP therapy, presents for evaluation of dizziness. MRI of the brain done at [facility] on 01/25/25 to monitor a meningioma [...] otologic pathology. Recommend following up with her outdoor emergency care technician as her newly prescribed carvedilol may be [...] Romberg and Fukuda marching test 2024 025 [facility] Neurology Scheduling, [address] [facility], [place], [address], 5 11:37:36 Procedures None recorded. Surgeries None [...] Recorded Time Acute eczematoi d otitis externa 22867340 Active 2021 Acute eczematoi d otitis externa, bilateral ; Note: Date Diagnosed : 12/16/2021 9:33 AM (H60.543) Not Available [facility] 4 02:24:58 Dizziness and giddiness 399268678 Active 2023 Dizziness and giddiness ; Note: Date Diagnosed : 08/30/2023 1:50 PM (R42) Not Available [facility] 4 02:24:42 Impacted cerumen of bilateral ears 45277990256 43079 Active 2023 Impacted cerumen, bilateral ; Note: Date Diagnosed : 08/30/2023 1:50 PM (H61.23) Not Available [facility] 4 02:25:05 [place] edness 444746387 Active 2024 NADIR MEZA [address] [facility] 100, [place], [address] , [place] - [facility] 5 10:04:06 Intracran ial meningiom a 084683279 Active 2024 NADIR MEZA [address] [facility],[place] [address], [place], [address] , [place] - [facility] 5 10:22:49 Referred otalgia of right ear 48840215739 [address]10 Active 2024 NADIR MEZA 100 [facility] [address], [place], [address] , [facility] - [facility] 5 10:24:37 Obstructi ve sleep apnea syndrome 24876674 Active 2024 ANDIR MEZA [address] [facility] 100, [place], [address] , [facility] - [facility] 5 10:31:44 Disorder of brain 14147001 Active 2024 NADIR MEZA [address] [facility] 100, [place], [address] , [facility] - [facility] 20:28:53 Problem Notes None recorded. Medical Equipment None Reported. Allergies Allergen ID Allergen Name Allergen Category Reaction Reaction Severity Criticality Documentation Date Start Date Code Code System Note Provider Name and Address Organization Details Recorded Time 12229 Prozac medicatio n other Not available Not available 11/01/2023 49882 RxNorm React ion: other react ion, Unkno wn; Not Available [facility] 4 00:57:12 28072 Tums medicatio n other Not available Not available 11/01/2023 73047 8 RxNorm React ion: other react ion, Unkno wn; Not Available [facility] 4 00:57:23 Medications Name Sig Start [...] mg tablet 08/29 completed Medicati on ID: 801672 B rand Name: trazodon e Send Method: E-Prescr ibed Sub s Allowed: subs OK Medic ationGen ericName : trazodon e Not Available Not Available Not Available citalopra m 10 mg tablet TAKE 1 TABLET BY MOUTH DAILY IN ADDITION TO 20 MG TABLET active Not Available Not Available No t Available sucralfat e 1 gram tablet 08/29 completed Medicati on ID: 711201 B rand Name: sucralfa te Send Method: E-Prescr ibed Sub s Allowed: subs OK Medic ationGen ericName : sucralfa te Not Available Not Available Not Available Excedrin Migraine 250 mg-250 mg-65 mg tablet 08/29 completed Medicati on ID: 671930 B rand Name: Excedrin Migraine Send Method: E-Prescr ibed Sub s Allowed: subs OK Medic ationGen ericName : Excedrin Migraine Not Available Not Available Not Available acetamino phen 500 mg tablet 08/29 completed Medicati on ID: 504995 B rand Name: acetamin ophen Se nd [...] mg capsule 08/29 completed Medicati on ID: 705300 B rand Name: Macrobid Send Method: E-Prescr [...] mg tablet 08/29 completed Medicati on ID: 790950 B rand Name: amitript yline Se nd Method: E-Prescr ibed Sub s Allowed: subs OK Medic ationGen ericName : amitript yline Not Available Not Available Not Available meclizine 25 mg tablet active Medicati on ID: 656324 B rand Name: meclizin e Send Method: E-Prescr ibed Sub s Allowed: subs OK Medic ationGen ericName : meclizin e Not Available Not Available Not Available baclofen 10 mg tablet 08/29 completed Medicati on ID: 608093 B rand Name: baclofen Send Method: E-Prescr ibed Sub s Allowed: subs OK Medic ationGen ericName : baclofen Not Available Not Available Not Available amlodipin e 10 mg tablet 02/06 completed Medicati on ID: 431669 B rand Name: amlodipi ne Send Method: E-Prescr ibed Sub s Allowed: subs OK Medic ationGen ericName : amlodipi ne Not Available Not Available Not Available tacrolimu s 0.1 % topical ointment APPLY TOPICALL Y TO FACE TWICE DAILY NEEDED FOR FLARES active Not Available Not Available No t Available lisinopri l 10 mg tablet 02/06 completed Medicati on ID: 174937 B rand Name: lisinopr il Send Method: E-Prescr ibed Sub s Allowed: subs OK Medic ationGen ericName : lisinopr il Not Available Not Available Not Available losartan 25 mg tablet 02/06 completed Medicati on ID: 348627 B rand Name: losartan Send Method: E-Prescr [...] mg tablet 08/29 completed Medicati on ID: 352192 B rand Name: monteluk ast Send Method: E-Prescr ibed Sub s Allowed: subs OK Medic ationGen ericName : monteluk ast Not Available Not Available Not Available fluticaso ne 100 mcg-salme terol 50 mcg/dose blistr powdr for inhalatio n 08/29 completed Medicati on ID: 304929 B rand Name: fluticas one propion- salmeter ol Send Method: E-Prescr ibed Sub s Allowed: subs OK Medic ationGen ericName : fluticas one propion- salmeter ol Not Available Not Available Not Available polyethyl tejas glycol 3350 17 gram/dose oral powder 08/29 completed Medicati on ID: 505234 B rand Name: polyethy jermaine glycol 3350 Sen d Method: E-Prescr ibed Sub s Allowed: subs OK Medic ationGen ericName : polyethy ejrmaine glycol 3350 Not Available Not Available Not Available albuterol sulfate HFA 90 mcg/actua tion aerosol inhaler 08/29 completed Medicati on ID: 723983 B rand Name: albutero l sulfate Send [...] %) nasal spray active Medicati on ID: 970045 B rand Name: ipratrop ium bromide Send Method: E-Prescr ibed Sub s Allowed: subs OK Medic ationGen ericName : ipratrop ium bromide Not Available Not Available Not Available loratadin e 10 mg tablet 08/29 completed Medicati on ID: 873322 B rand Name: loratadi ne Send Method: [...] as directed 08/29 completed Medicati on ID: 557311 P josefribe d By Name: Rupinder Levine [...] Updated DateTime 02/06/2025 154.94 cm 34.8 kg/m2 57954 g Conchita Ford [place] - [facility] 02/06/2025 09:38:08 Social History None recorded. Functional Status None recorded. Mental Status None recorded. Family History Nothing Reported. Medical History No medical history recorded. Gynecological HistoryNo gynecological history recorded. Obstetrics History GPAL:G 0 P 0 0 0 0 Past Encounters Encounter ID Performer Location Encounter Start Date Encounter Closed Date Diagnosis/Indication Diagnosis SNOMED-CT Code Diagnosis ICD10 Code Diagnosis IMO Codes Diagnosis Note [id number] NADIR MEZA [facility] of [address] [address] 02/06/2025 09:28:44 02/06/2025 10:09:14 Lightheadedness 913022170 R42 62784 Intracrani al meningioma 101624722 D32.0 200871 Referred o talgia of right ear 6120715416 572929 H92.01 M26.621 M79.11 The patient complains of [...] considered . Obstructiv e sleep apnea syndrome 74567585 G47.33 [id number] Patient is unsure if her current pressure settings are causing her throat discomfort . She will follow up with her sleep medicine provider to discuss if this can be adjusted. Disorder of brain 538179 09 G93.40 0085310 Health Concerns Section Related Observation LastModified by Organization Detai ls LastModified Time None Recorded Concern Status LastModified by Organization Details LastModified Time None Recorded Advance Directives Directive None Recorded Payers Insurance Date Sequence Insurance Name Policy Number Policy Downey Covered Member ID Downey Member ID Guarantor Name 04/23/2025 1 [facility] - DOS ON OR AFTER 2022 - ONE CARE (MEDICARE REPLACEMENT/ADV ANTAGE - HMO) Laisha Riggins [id number] Laisha Riggins Notes Date Note Type Note [...] physician. MRI of the brain done at [facility] on 01/25/25 incidentally showed a small [...] lightheadedness. This is being managed by her outdoor emergency care technician. MARISOL JESUS MD [address] [place] [address], [phone], [facility] - [facility] 02/07/2025 12:30:48 OBGyn Episode No OBEpisode recorded.
--- OUTSIDE RECORDS SUMMARY | 2025-06-03 08:41 | XMS_ITS | Encounter Summary ---
Author Organization [employer] Address [address] [facility] 7 [place] [address] Care Team Providers Care Computational Geneticist Name Role Phone Olamide Chandler MD Primary Care Provide r Reason for Visit * Reason Onset Date Comments Med Refill 12/04/2024 Encounter Details Date Type Department Care Team ([facility] st Contact Info) Description 12/04/2024 Telephone [facility]INE [address] [place], [place] [phone] Olamide Chandler MD [address] [place], [place] [phone] Med Refill Social History Tobacco Use Types [...] Please review and resubmit Contact pt at [phone] Need spray gun operator * Telephone Encounter - Bea Escobar LPN - 12/04/2024 2:48 PM EDT Medication was sent to [id number] today. * Telephone Encounter - Joselyn Boyer - 12/04/2024 2:46 PM EDT TC from pt requesting medication refill. Medications needing refill : Zepbound 2.5 MG/0.5ML solution auto-injector To be sent to: [id number] - [place] [address] [facility] [place] signed by Joselyn Boyer at 12/04/2024 2:46 PM EDT documented in this encounter Plan of Treatment Upcoming Encounters Date Type Department Care Team (Late st Contact Info) Description 07/12/2025 11:15 AM EST Office Visit [facility] [address] [place] [address] Brittney Graham MD [address] [place], [place] [phone] documented as of this encounter Visit Diagnoses Not on filedocumented in this encounter Additional Health Concerns Assessment Noted Time PHQ-9 Depression Total Score: 25 024 9:17 AM EDT documented as of this encounter Care Teams Computational Geneticist Relationship Specialty Start Date End Date Olamide Chandler MD [address] [place] [phone] PCP - General Family Medicine 07/28/20 documented as of this encounter
--- OUTSIDE RECORDS SUMMARY | 2025-06-03 08:41 | XMS_ITS | Encounter Summary ---
Author Organization [employer] Address [address] [facility] 7t [place] [address] Care Team Providers Care Custom Leather Products Maker Name Role Phone Olamide Chandler MD Primary Care Provide r Reason for Visit * Reason Comments Med Refill Encounter Details Date Type Department Care Team (Late st Contact Info) Description 11/27/2024 Refill [facility]INE [address] [place], [place] [phone] Olamide Chandler MD [address] [place], [place] [phone] Class 3 severe obesity due to excess [...] [facility] [address] [place] [address] Brittney Graham MD [address] [place] [address] documented as of this encounter Visit Diagnoses Diagnosis Class 3 severe obesity due to excess calories with serious comorbidity and body mass index (BMI) of 45.0 to 49.9 in adult (HCC) documented in this encounter Additional Health Concerns Assessment Noted Time PHQ-9 Depression Total Score: 25 024 9:17 AM EDT documented as of this encounter Care Teams Custom Leather Products Maker Relationship Specialty Start Date End Date Olamide Chandler MD [address] [place] [address] PCP - General Family Medicine 07/28/20 documented as of this encounter
--- OUTSIDE RECORDS SUMMARY | 2025-06-03 08:41 | XMS_ITS | Encounter Summary ---
Author Organization [employer] Address [address] [facility] 7 [place] [address] Care Team Providers Care Printer Slotter Feeder Name Role Phone Olamide Chanlder MD Primary Care Provide r Reason for Visit * Reason Onset Date Comments Prior Authorization 11/28/2024 Encounter Details Date Type Department Care Team (Late st Contact Info) Description 11/28/2024 Telephone [facility] MEDICINE [address] [place], [place] [phone] Olamide Chandler MD [address] [place], [place] [phone] Prior Authorization (/) Social History Tobacco Use [...] Description 07/12/2025 11:15 AM EST Office Visit [facility] [address] [place], [place] [phone] Brittney Graham MD [address] [place], [place] [phone] documented as of this encounter Visit Diagnoses Not on filedocumented in this encounter Additional Health Concerns Assessment Noted Time PHQ-9 Depression Total Score: 25 024 9:17 AM EDT documented as of this encounter Care Teams Printer Slotter Feeder Relationship Specialty Start Date End Date Olamide Chandler MD [address] [place] [address] PCP - General Family Medicine 07/28/20 documented as of this encounter
--- OUTSIDE RECORDS SUMMARY | 2025-06-03 08:41 | XMS_ITS | Encounter Summary ---
Author Organization [facility] Address [address] [place] [address] Phone Care Team Providers Care Hvac Instructor Name Role Phone Olamide Chandler MD Primary Care Provide r Encounter Details Date Type Department Care Team (Late st Contact Info) Description 01/07/2025 Documentation Only [facility] [address] [place] [address] Alisha Briceno [address] [place] [phone] Social History Tobacco Use Types Packs/Day Years [...] [facility] [address] [place] [phone] Mahendra Medel DO [address] [place] [address] [place] [phone] documented as of this encounter Visit Diagnoses Not on filedocumented in this encounter Care Teams Hvac Instructor Relationship Specialty Start Date End Date Olamide Chandler MD [address] [place] [phone] PCP - General Internal Medicine 10/27/23 documented as of this encounter
--- OUTSIDE RECORDS SUMMARY | 2025-06-03 08:41 | XMS_ITS | Encounter Summary ---
Author Organization [employer] Address [address] [facility] 7t [place] [address] Care Team Providers Care Vision Teacher Name Role Phone Olamide Chandler MD Primary Care Provide r Encounter Details Date Type Department Care Team ([facility] st Contact Info) Description 03/07/2025 Telephone [facility] MEDICINE [address] [place], [place] [phone] Olamide Chandler MD [address] [place], [place] [phone] Social History Tobacco Use Types Packs/Day Years [...] Description 07/12/2025 11:15 AM EST Office Visit [facility] MED[facility]INE [address] [place] [address] Brittney Graham MD [address] [place] [address] documented as of this encounter Visit Diagnoses Not on filedocumented in this encounter Additional Health Concerns Assessment Noted Time PHQ-9 Depression Total Score: 25 024 9:17 AM EDT documented as of this encounter Care Teams Vision Teacher Relationship Specialty Start Date End Date Olamide Chandler MD [address] [place] [address] PCP - General Family Medicine 07/28/20 documented as of this encounter
--- OUTSIDE RECORDS SUMMARY | 2025-06-03 08:41 | XMS_ITS | Encounter Summary ---
Author Organization [facility] Address [address] [place] [address] Phone Care Team Providers Care Rn Hemodialysis Name Role Phone Olamide Chandler MD Primary Care Provide r Encounter Details Date Type Department Care Team (Late st Contact Info) Description 12/31/2024 Documentation Only [facility] [place], [address] [place] [address] Mahendra Medel DO [address] [place] [address] Social History Tobacco Use Types Packs/Day Years Used Date Smoking Tobacco: Never Comments Unknown Sex and Gender Information Value Date Recorded Sex Assigned at Not on file Legal Sex Female 4:37 PM EST Gender Identity Not on file Sexual Orientation Not on file documented as of this encounter Functional Status * BP Answer Date of Assessment Author 124/84 01/03/2025 3:05 PM EDT Aryan Medel, DO * Pulse Answer Date of Assessment Author 78 01/03/2025 3:05 PM EDT Aryan Medel DO * Weight Answer Date of Assessment Author 3008 01/03/2025 3:05 PM EDT Aryan Medel DO * BP Answer Date of Assessment Author 124/84 01/03/2025 3:05 PM EDT Aryan Medel DO * Weight Answer Date of Assessment Author 3008 01/03/2025 3:05 PM EDT Aryan Medel DO documented as of this encounter Plan of Treatment Upcoming Encounters Date Type Department Care Team (Late st Contact Info) Description 01/02/2026 3:00 PM EDT Office Visit [facility] [place], [address] [facility] [place] [address] Mahendra Medel DO [address] [facility] [place] [address] documented as of this encounter Procedures [...] Creatinine, Ur 40.8 Not Estab. mg/dL [facility] Albumin, Urine <3.0 Not Estab. ug/mL [facility] Albumin/Creatin ine Ratio <7 0 - 29 mg/g creat [facility] Comment: Normal: 0 - 29 Moderately increased: 30 - 300 Severely increased: >300 Urine Urine specimen obtained by clean catch procedure / Unknown 01/01/2025 9:37 AM EDT 01/01/2025 Mahendra Medel DO LAB URINE ORDERABLES Final Resu lt [facility] [address] [place] [address] * (ABNORMAL) Renal function panel (01/01/2025 9:37 AM EDT) Glucose 105(H) 70 - 99 mg/dL [facility] BUN 10 6 - 24 mg/dL [facility] Creatinine 0.82 0.57 - 1.00 mg/dL [facility] eGFR CKD-EPI CR 2020 85 >59 mL/min/1.7 3 [facility] BUN/Creatinine Ratio 12 9 - 23 [facility] Sodium 138 134 - 144 mmol/L [facility] Potassium 4.4 3.5 - 5.2 mmol/L [facility] Chloride 101 96 - 106 mmol/L [facility] Bicarbonate (CO2) 22 20 - 29 mmol/L [facility] Calcium 9.1 8.7 - 10.2 mg/dL [facility] Albumin 4.1 3.8 - 4.9 g/dL [facility] Phosphorus 3.1 3.0 - 4.3 mg/dL [facility] Blood Venous blood / Unknown 01/01/2025 9:37 AM EDT 01/01/2025 us Mahendra Medel DO LAB BLOOD ORDERABLES Final Resu lt [facility] [address] [place] [address] documented in this encounter Visit Diagnoses Diagnosis Chronic kidney disease, stage 2 (mild)- Primary 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
--- OUTSIDE RECORDS SUMMARY | 2025-06-03 08:41 | XMS_ITS | Encounter Summary ---
Author Organization [employer] Address [address] [facility] 7t [place] [address] Care Team Providers Care Product Mgmt Dev Manager Name Role Phone Olamide Chandler MD Primary Care Provide r Encounter Details Date Type Department Care Team ([facility] Contact Info) Description 08/18/2022 Telephone [facility] MEDICINE [address] [place], [place] [phone] Olamide Chandler MD [address] [place], [place] [phone] Social History Tobacco Use Types Packs/Day Years [...] 07/12/2025 11:15 AM EST Office Visit [facility]INE [address] [place] [address] Brittney Graham MD [address] [place] [address] documented as of this encounter Visit Diagnoses Not on filedocumented in this encounter Care Teams Product Mgmt Dev Manager Relationship Specialty Start Date End Date Olamide Chandler MD [address] [place] [address] PCP - General Family Medicine 07/28/20 documented as of this encounter
--- OUTSIDE RECORDS SUMMARY | 2025-06-03 08:41 | XMS_ITS | Encounter Summary ---
Author Organization [employer] Address [address] [facility] 7 [place] [address] Care Team Providers Care Supervisor Leaf Spring Repair Name Role Phone Olamide Chandler MD Primary Care Provide r Reason for Visit * Reason Onset Date Comments Med Refill 01/07/2025 Encounter Details Date Type Department Care Team ([facility] st Contact Info) Description 01/07/2025 Telephone [facility] MEDICINE [address] [place], [place] [phone] Olamide Chandler MD [address] [place], [place] [phone] Med Refill Social History Tobacco Use Types [...] MG/0.5ML solution auto-injector [id number] - [place], [place] - [address] [place] [address] [facility] documented in this encounter Plan of Treatment Upcoming Encounters Date Type Department Care Team ([facility] st Contact Info) Description 07/12/2025 11:15 AM EST Office Visit [facility] MEDICINE [address] [place] [phone] Brittney Graham MD [address] [place] [address] documented as of this encounter Visit Diagnoses Diagnosis Class 3 severe obesity due to excess calories with serious comorbidity and body mass index (BMI) of 45.0 to 49.9 in adult (HCC) documented in this encounter Additional Health Concerns Assessment Noted Time PHQ-9 Depression Total Score: 25 024 9:17 AM EDT documented as of this encounter Care Teams Supervisor Leaf Spring Repair Relationship Specialty Start Date End Date Olamide Chandler MD [address] [place] [address] PCP - General Family Medicine 07/28/20 documented as of this encounter
--- OUTSIDE RECORDS SUMMARY | 2025-06-03 08:41 | XMS_ITS | Encounter Summary ---
Author Organization [employer] Address [address] [facility] 7t [place] [address] Care Team Providers Care Public Health Officer Name Role Phone Olamide Chandler MD Primary Care Provide r Encounter Details Date Type Department Care Team ([facility] st Contact Info) Description 12/04/[address] [facility] MEDICINE [address] [place], [place] [phone] Olamide Chandler MD [address] [place], [place] [phone] Social History Tobacco Use Types Packs/Day Years [...] 07/12/2025 11:15 AM EST Office Visit [facility] MEDICINE [address] [place] [address] Brittney Graham MD [address] [place] [address] documented as of this encounter Visit Diagnoses Not on filedocumented in this encounter Additional Health Concerns Assessment Noted Time PHQ-9 Depression Total Score: 25 024 9:17 AM EDT documented as of this encounter Care Teams Public Health Officer Relationship Specialty Start Date End Date Olamide Chandler MD [address] [place] [address] PCP - General Family Medicine 07/28/20 documented as of this encounter
== END 2025-06-03 08:52 | disposition home or self-care (01) ==
LOC: HO.HGS 08:06
PROVIDERS: PCP Internal Medicine; Visit Provider Surgery
DX: R92.8 Other abnormal and inconclusive findings on diagnostic imaging of breast (principal)
CPT/HCPCS: 99204

== ENCOUNTER 2025-06-03 09:00 | Outpatient (REF) | payer OTHER, SELFPAY ==
--- NOTE | ~2025-06-03 | MM_ITS ---
EXAMINATION/PROCEDURE: 1. ULTRASOUND GUIDED CORE BIOPSY BREAST, LEFT 2. POST PROCEDURE DIGITAL MAMMOGRAM, LEFT CLINICAL INFORMATION: -Patient is status post diagnostic mammogram/ultrasound workup on May 22, 2025 that recommended on ultrasound-guided needle core biopsy of the heterogeneous hyperechoic mass seen on the ultrasound at 1 o'clock position at 1 cm from the nipple measuring 0.8 x 0.4 x 0.7 cm. Prior measurements in October 2024 ultrasound were 0.6 x 0 3 x 0.5 cm. Patient has history of reduction mammoplasty approximately 2017. -Screening mammogram on October 04, 2024 describes focal asymmetry in the upper outer quadrant anterior depth. COMPARISON: Screening mammogram on October 04, 2024. Diagnostic mammogram/ultrasound workup on November 08, 2024. Diagnostic mammogram/ultrasound workup on May 22, 2025. FINDINGS: Proper informed consent is obtained from the patient after discussion of the procedure, potential risks and complications, and alternatives. Patient was given an opportunity for questions. The patient appeared to understand. The patient consented to the procedure and signed the consent form. GUIDANCE: Ultrasound-guided; aseptic technique. LESION: Heterogeneous hyperechoic solid mass at 1 o'clock position at 1 cm from the nipple.. APPROACH: Lateral. ANESTHESIA: 7 cc of lidocaine 1% buffered with Sodium Bicarbonate 8.4% (9ml:1ml ratio). NEEDLE: 14-gauge Bard Marquee biopsy device with co-axial introducer. CORES: 4. CLIP: HydroMARK; shape: open coil. The needle was then removed and adequate hemostasis was achieved. Estimated blood loss: Minimal POST PROCEDURE UNILATERAL DIGITAL MAMMOGRAM: The post biopsy mammogram is performed in separate room using separate digital mammography equipment from the biopsy procedure. Full field ML 90 degrees, MLO and CC views are obtained. Note that CC view was obtained with tomosynthesis. The bandage was covering the nipple, therefore, positioning was not optimal on the post procedure mammograms. The biopsy clip does not appear to correlate with the mammographic finding described on the screening mammogram. No gross hematoma. The patient tolerated the procedure well. No immediate complications. Home instructions reviewed with the patient. Final pathology results are pending. MM/MM tomosynthesis diagnostic LT IMPRESSION: 1. Status post ultrasound-guided core biopsy left breast heterogeneous hyperechoic mass at 1 o'clock position at 1 cm from the nipple. 2. Clip placed: HydroMARK; shape: open coil. Location of the clip does not appear to correlate with the initial mammographic finding. 3. Pathology pending. An addendum report will be issued in regards to the next management/follow-up. ASSESSMENT: Post Procedure Mammograms for Marker Placement RECOMMENDATION: Awaiting Pathology Results Electronically signed by: Robi Humphreys MD 06/03/2025 11:13 AM RYANN
[2025-06-03] MEDS: Lidocaine HCl 1 % 20 ML VIAL 9 ML SUBCUT (11:24)
== END 2025-06-03 09:01 | disposition home or self-care (01) ==
LOC: HO.MAMMO 09:00
PROVIDERS: PCP Internal Medicine; Visit Provider Surgery
DX: R92.8 Other abnormal and inconclusive findings on diagnostic imaging of breast (principal)
CPT/HCPCS: 19083; 77061; 77065; 88305; 99202; A4648; J2003

== ENCOUNTER → 2025-06-03 10:24 | Outpatient (BNV) | payer OTHER, SELFPAY | PROVIDERS: PCP Internal Medicine; Visit Provider Radiology Body Imaging | DX: N63.21 Unspecified lump in the left breast, upper outer quadrant (principal) | CPT/HCPCS: 77065; G0279 ==

== ENCOUNTER 2025-06-10 08:39 | Outpatient (AMB) | payer OTHER, SELFPAY ==
[2025-06-10 08:41] VITALS: BP 155/71; PULSE 85; BMI 35.1
--- NOTE | 2025-06-10 08:41 | MHC.OFFVIS ---
Vital Signs 06/10/25 08:41 Height 5 ft 2 in Weight 192 lb BMI 35.1 BP 155/71 H Blood Pressure Location Lt brachial Position Sitting Pulse 85 Intake Visit Reasons: biopsy results Intake Note: Patient is seen in office for biopsy RESULTS left breast 1 o'clock density. Pt c/o: bx site feels itchy. Denies oozing, pain. 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 Analytics Required: No Accompanied by: sister Kaitlin Allergies cinnamon (CINNAMON) Allergy (Intermediate, Verified 06/10/25 08:46) THROAT SWELLING soy Allergy (Intermediate, Verified 06/10/25 08:46) Itching calcium carbonate (From Tums) Allergy (Unknown, Verified 06/10/25 08:46) Unknown fluoxetine (From PROZAC) Allergy (Unknown, Verified 06/10/25 08:46) UNKNOWN Medication List - Last Reconciled 06/10/25 by Michael Kinsey MD albuterol sulfate 90 mcg/actuation 1 inh inhalation Q4H PRN aspirin 81 mg PO DAILY carvedilol 3.125 mg PO BID carvedilol 6.25 mg PO BID cholecalciferol (vitamin D3) 50 mcg PO DAILY 30 days citalopram 10 mg PO DAILY CPAP (CPAP Machine/Device) As directed fluticasone propionate 50 mcg/actuation (Flonase Allergy Relief) 1 spray intranasal DAILY hydralazine 25 mg PO BID hydrocortisone 2.5% (Proctosol HC) 1 appl CO BEDTIME PRN levothyroxine (Euthyrox) 75 mcg PO QAM lorazepam 0.5 mg PO BID PRN omeprazole 40 mg PO DAILY omeprazole 20 mg PO QAM triamcinolone acetonide 0.1% 1 appl topical BID-TID HPI Comments Details: 54-year-old female patient returning 1 week following left breast stereotactic guided core biopsy on 06/03/2025. This revealed focal stromal fibrosis and benign breast tissue with no atypia or malignancy. Concern was raised due to the clip being outside of the area of the abnormality. Findings were considered discordant therefore a repeat mammogram in 6 months is recommended in September 2025. She tolerated the procedure well and denies any ongoing breast symptoms. Her past history is significant for bilateral breast reduction surgery in 2014. She does have a history of keloid scars but had no difficulty healing her breast incisions. Menarche was at 12 in her last period was approximately a year and a half ago. She has no children never used hormone replacement therapy. Her family history is negative for breast or ovarian cancer. She only complains of itchiness in the breast at the biopsy site left. [facility] Medical History Sleep apnea GERD (gastroesophageal reflux disease) Osteoarthritis of hands, bilateral Osteoarthritis of knees, bilateral Flexor tenosynovitis of finger Bilateral hand pain Depression ESR raised Polyarthralgia Vitamin D deficiency Multinodular thyroid Hypothyroidism Surgical History Hx of colonoscopy Hx of tooth extraction Hx of endoscopy Hx of bilateral breast reduction surgery Family History Father Prostate cancer Hypothyroidism Mother Kidney problem Stroke Brother Kidney problem Sister Cancer of kidney Social History Household Members: None Household Members Other:: Lives alone Housing: House Are you a primary care transitions nurse to a significant other at home: No Do you presently have visiting nurse or other home services: Yes (MANAGER TRAINEE) 75 years or older and lives alone: No Alcohol intake: never Patient Tobacco Use Status: Never used Tobacco e-Cigarette/Vaping Use: Never Used service: No Current occupational status: disabled Female Reproductive History Menstrual Age of Menarche: 12 Review of Systems Const All systems reviewed & are unremarkable except as noted in HPI and below Physical Exam Vital Signs: Last Vital Signs Pulse 85 06/10/25 08:41 BP 155/71 H 06/10/25 08:41 BMI result Body Mass Index 35.1 Const General: healthy appearing and no acute distress Nutritional Appearance: well nourished Orientation/consciousness: patient oriented x3 Chest Other: Exam deferred Resp Effort & Inspection: normal respiratory effort Skin Other: Warm, dry, no rashes Neuro General: patient oriented x3 Assessment & Plan Assessment & Plan (1) Abnormal mammogram of left breast: Code(s): R92.8 - Other abnormal and inconclusive findings on diagnostic imaging of breast Category: Medical (2) Abnormal ultrasound of breast: Code(s): R92.8 - Other abnormal and inconclusive findings on diagnostic imaging of breast Category: Medical Plan 54-year-old female patient status post left breast stereotactic guided core biopsy which revealed benign breast tissue with focal stromal fibrosis and no atypia/malignancy. She tolerated the procedure well with only itchiness currently. A repeat bilateral diagnostic mammogram in 6 months is recommended in September 2025. She should follow up as needed. Orders: Orders MM diagnostic mammo BI 10/09/25 R92.8 - Other abnormal and inconclusive findings on diagnostic imaging of breast Coding Level of Care Code Est Pt Level 3 (80359) Diagnoses Abnormal mammogram of left breast R92.8 Abnormal ultrasound of breast R92.8
--- OUTSIDE RECORDS SUMMARY | 2025-06-10 09:00 | XMS_ITS | Data Portability ---
Author Organization [place] [facility], Allergy Address [address] [address] Care Team Providers Care Needle Valve Operator Name Role Phone PEGGY GILES Primary Care Provider Assessment Encounter Date Assessment Date Assessment LastModified by Organization Details LastModified Time 02/06/2025 02/06/2025 54 year old female, with a history of KARLA on CPAP therapy, presents for evaluation of dizziness. MRI of the brain done at [facility] on 01/25/25 to monitor a meningioma [...] otologic pathology. Recommend following up with her care transition manager as her newly prescribed carvedilol may be [...] Romberg and Fukuda marching test 2024 025 [facility] Neurology Scheduling, [address] [facility], [place], [address], 5 11:37:36 Procedures None recorded. Surgeries None [...] Recorded Time Acute eczematoi d otitis externa 61829720 Active 2021 Acute eczematoi d otitis externa, bilateral ; Note: Date Diagnosed : 12/16/2021 9:33 AM (H60.543) Not Available [facility] 4 02:24:58 Dizziness and giddiness 919757338 Active 2023 Dizziness and giddiness ; Note: Date Diagnosed : 08/30/2023 1:50 PM (R42) Not Available [facility] 4 02:24:42 Impacted cerumen of bilateral ears 76009346525 50521 Active 2023 Impacted cerumen, bilateral ; Note: Date Diagnosed : 08/30/2023 1:50 PM (H61.23) Not Available [facility] 4 02:25:05 Lighthead edness 189133274 Active 2024 NADIR MEZA [address] [facility], [place], [address] , [place] - [facility] 5 10:04:06 Intracran ial meningiom a 450687757 Active 2024 NADIR MEZA [address] [facility] [address], [place], [address] , [place] - [facility] [place] 5 10:22:49 Referred otalgia of right ear 31216971059 66816 Active 2024 NADIR MEZA 100 [facility], [place], [address] , [facility] - [facility] [place] 5 10:24:37 Obstructi ve sleep apnea syndrome 02686023 Active 2024 NADIR MEZA 100 [facility], [place], [address] , [facility] - [facility] [place] 5 10:31:44 Disorder of brain 15989357 Active 2024 NADIR MEZA 100 [facility], [place], [address] , [facility] - [facility] [place] 20:28:53 Problem Notes None recorded. Medical Equipment None Reported. Allergies Allergen ID Allergen Name Allergen Category Reaction Reaction Severity Criticality Documentation Date Start Date Code Code System Note Provider Name and Address Organization Details Recorded Time 32985 Prozac medicatio n other Not available Not available 11/01/2023 64132 RxNorm React ion: other react ion, Unkno wn; Not Available [facility] 4 00:57:12 96960 Tums medicatio n other Not available Not available 11/01/2023 70308 8 RxNorm React ion: other react ion, Unkno wn; Not Available [facility] 4 00:57:23 Medications Name Sig Start Date [...] mg tablet 08/29 completed Medicati on ID: [id number] B rand Name: trazodon e Send Method: E-Prescr ibed Sub s Allowed: subs OK Medic ationGen ericName : trazodon e Not Available Not Available Not Available citalopra m 10 mg tablet TAKE 1 TABLET BY MOUTH DAILY IN ADDITION TO 20 MG TABLET active Not Available Not Available No t Available sucralfat e 1 gram tablet 08/29 completed Medicati on ID: [id number] B rand Name: sucralfa te Send Method: E-Prescr ibed Sub s Allowed: subs OK Medic ationGen ericName : sucralfa te Not Available Not Available Not Available Excedrin Migraine 250 mg-250 mg-65 mg tablet 08/29 completed Medicati on ID: [id number] B rand Name: Excedrin Migraine Send Method: E-Prescr ibed Sub s Allowed: subs OK Medic ationGen ericName : Excedrin Migraine Not Available Not Available Not Available acetamino phen 500 mg tablet 08/29 completed Medicati on ID: [id number] B rand Name: acetamin ophen Se nd [...] mg capsule 08/29 completed Medicati on ID: [id number] B rand Name: Macrobid Send Method: E-Prescr [...] mg tablet 08/29 completed Medicati on ID: [id number] B rand Name: amitript yline Se nd Method: E-Prescr ibed Sub s Allowed: subs OK Medic ationGen ericName : amitript yline Not Available Not Available Not Available meclizine 25 mg tablet active Medicati on ID: [id number] B rand Name: meclizin e Send Method: E-Prescr ibed Sub s Allowed: subs OK Medic ationGen ericName : meclizin e Not Available Not Available Not Available baclofen 10 mg tablet 08/29 completed Medicati on ID: [id number] B rand Name: baclofen Send Method: E-Prescr ibed Sub s Allowed: subs OK Medic ationGen ericName : baclofen Not Available Not Available Not Available amlodipin e 10 mg tablet 02/06 completed Medicati on ID: [id number] B rand Name: amlodipi ne Send Method: E-Prescr ibed Sub s Allowed: subs OK Medic ationGen ericName : amlodipi ne Not Available Not Available Not Available tacrolimu s 0.1 % topical ointment APPLY TOPICALL Y TO FACE TWICE DAILY NEEDED FOR FLARES active Not Available Not Available No t Available lisinopri l 10 mg tablet 02/06 completed Medicati on ID: [id number] B rand Name: lisinopr il Send Method: E-Prescr ibed Sub s Allowed: subs OK Medic ationGen ericName : lisinopr il Not Available Not Available Not Available losartan 25 mg tablet 02/06 completed Medicati on ID: [id number] B rand Name: losartan Send Method: E-Prescr [...] mg tablet 08/29 completed Medicati on ID: [id number] B rand Name: monteluk ast Send Method: E-Prescr ibed Sub s Allowed: subs OK Medic ationGen ericName : monteluk ast Not Available Not Available Not Available fluticaso ne 100 mcg-salme terol 50 mcg/dose blistr powdr for inhalatio n 08/29 completed Medicati on ID: [id number] B rand Name: fluticas one propion- salmeter ol Send Method: E-Prescr ibed Sub s Allowed: subs OK Medic ationGen ericName : fluticas one propion- salmeter ol Not Available Not Available Not Available polyethyl tejas glycol 3350 17 gram/dose oral powder 08/29 completed Medicati on ID: 646953 B rand Name: polyethy jermaine glycol 3350 Sen d Method: E-Prescr ibed Sub s Allowed: subs OK Medic ationGen ericName : polyethy jermaine glycol 3350 Not Available Not Available Not Available albuterol sulfate HFA 90 mcg/actua tion aerosol inhaler 08/29 completed Medicati on ID: [id number] B rand Name: albutero l sulfate Send [...] %) nasal spray active Medicati on ID: 158403 B rand Name: ipratrop ium bromide Send Method: E-Prescr ibed Sub s Allowed: subs OK Medic ationGen ericName : ipratrop ium bromide Not Available Not Available Not Available loratadin e 10 mg tablet 08/29 completed Medicati on ID: [id number] B rand Name: loratadi ne Send Method: [...] as directed 08/29 completed Medicati on ID: [id number] P josefribe d By Name: Rupinder Levine [...] Updated DateTime 02/06/2025 154.94 cm 34.8 kg/m2 23335 g Conchita Ford [place] - [facility] 02/06/2025 09:38:08 Social History None recorded. Functional Status None recorded. Mental Status None recorded. Family History Nothing Reported. Medical History No medical history recorded. Gynecological HistoryNo gynecological history recorded. Obstetrics History GPAL:G 0 P 0 0 0 0 Past Encounters Encounter ID Performer Location Encounter Start Date Encounter Closed Date Diagnosis/Indication Diagnosis SNOMED-CT Code Diagnosis ICD10 Code Diagnosis IMO Codes Diagnosis Note [id number] NADIR MEZA [facility] [address] [address] 02/06/2025 09:28:44 02/06/2025 10:09:14 Lightheadedness 122179439 R42 56602 Intracrani al meningioma 065672637 D32.0 682727 Referred o talgia of right ear [id number] 484904 H92.01 M26.621 M79.11 The patient complains of [...] considered . Obstructiv e sleep apnea syndrome 23347211 G47.33 [id number] Patient is unsure if her current pressure settings are causing her throat discomfort . She will follow up with her sleep medicine provider to discuss if this can be adjusted. Disorder of brain 982548 09 G93.40 [id number] Health Concerns Section Related Observation LastModified by Organization Detai ls LastModified Time None Recorded Concern Status LastModified by Organization Details LastModified Time None Recorded Advance Directives Directive None Recorded Payers Insurance Date Sequence Insurance Name Policy Number Policy Downey Covered Member ID Downey Member ID Guarantor Name 04/23/2025 1 [facility] - DOS ON OR AFTER 2022 - ONE CARE (MEDICARE REPLACEMENT/ADV ANTAGE - HMO) Laisha Riggins [id number] Laisha Riggins Notes Date Note Type Note [...] physician. MRI of the brain done at [facility] on 01/25/25 incidentally showed a small [...] lightheadedness. This is being managed by her care transition manager. MARISOL JESUS MD [address] [place] [address], [phone], [facility] - [facility] 02/07/2025 12:30:48 OBGyn Episode No OBEpisode recorded.
--- OUTSIDE RECORDS SUMMARY | 2025-06-10 09:01 | XMS_ITS | Clinical Summary ---
Author Organization [employer] Address [address] [place] [address] [address] [place] [address] Care Team Providers Care Laboratory Coordinator Name Role Phone Olamide Chandler MD [...] in the morning. 023 Active sodium chloride (Granite Nasal [place]) 0.65 % nasal sprayIndications: COVID-19 1-2 sprays [...] (BMI) of 45.0 to 49.9 in adult ([facility]) Inject 0.5 mL (5 mg) under the skin 1 (one) time per week. 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 We discuss about avoiding scratching, use [...] Encounters Date Type Department Care Team Description 06/03/2025 Orders Only GENERIC EXTERNAL DATA DEPARTMENT Provider, Generic External Data 05/22/2025 Orders Only [facility] [address] [place] [address] Olamide Chandler MD 05/20/2025 Refill [facility] [address] [place] [address] Olamide Chandler MD Vitamin D deficiency; Seasonal allergies; Other specified hypothyroidism 05/17/2025 Refill [facility] [address] [place] [phone] Olamide Chandler MD Other specified hypothyroidism 04/24/2025 Results Follow-Up [facility] [address] [place] [address] Olamide Chandler MD XR Hip 2 or 3 Views Right 04/13/2025 Refill [facility] [address] [place] [address] Olamide Chandler MD Gastroesophageal reflux disease, unspecified whether esophagitis present 04/11/2025 11:15 AM EDT Office Visit [facility] [address] [place] [address] Olamide Chandler MD Essential hypertension (Primary Dx); Right hip pain; Vertigo; Encounter for immunization; Fibromyalgia 04/11/2025 Travel 04/10/2025 Telephone [facility] [address] [place] [address] Olamide Chandler MD Chart Prep 04/04/2025 Travel 04/02/2025 Orders Only GENERIC EXTERNAL DATA DEPARTMENT Provider, Generic External Data from Last 3 Months Immunizations Immunization Administration [...] 11:15 AM EST Office Visit [facility] [address] [place] [address] Brittney Graham MD [address] [place] [address] Health Maintenance Due Date Last Done Comments CT Colonography 1971 FIT DNA/Cologuard 1971 FIT 1971 FOBT 1970 HIV Screening 1970 Sigmoidoscopy 1970 Hepatitis C Screening 10/21/1989 RSV Patients and Patients Aged 60 years or older (1 - Risk 50-74 years 1-dose series) 10/21/2021 COVID-19 Vaccine ( season) 2025 10/28/2023, 06/22/2021, 09/10/2020, Additional history exists Depression Monitoring 10/10/2025 04/11/2025, 025 Diagnostic Breast Imaging 12/02/20252024, 05/22/2025, 05/22/2025, Additional history exists SDOH Screening 01/08/2026 01/08/2025 [...] Procedure Name Priority Date/Time Associated Diagnosis Comments HEMATOXYLIN AND EOSIN STAIN Routine 06/03/2025 11:03 AM EST BI MAMMOGRAM DIAGNOSTIC TOMOSYNTHESIS LEFT Routine 06/03/2025 10:24 AM EST BI MAMMOGRAM DIAGNOSTIC TOMOSYNTHESIS LEFT Routine 05/22/2025 [...] for Papanicolaou smear for cervical cancer screening COLONOSCOPY Routine 04/12/2022 10:07 PM EDT from Last 3 Months or Most Recently Relevant to Health Maintenance Results * Hematoxylin and Eosin Stain (06/03/2025 11:03 AM EST) 06/03/2025 11:0 3 AM EST 06/03/2025 12:19 PM EST [facility] - 06/05/2025 1:50 PM EST ----- ------- Name: Laisha Ye I Age/Sex: 54/F : 1970 Unit#: [id number] Attend Dr: Michael Kinsey MD Re06/03/25 Status: DEP REF Location: HO.MAMMO Disch: ----- ------- SPEC : [id number] RECD: 06/03/25 STATUS: [facility] NUM: [id number] MO: 06/03/[address] [facility] [address]: Robi Humphreys MD ENTERED: 06/03/25-1222 SP TYPE: Surgical OTHR DR: Olamide Chandler MD, John J MD ORDERED: HE Stain/2, Gross Micro L4 COMMENTS: As stated on the accompanying specimen requisition: Time in formalin 1006 Diagnosis Breast, left mass at 1 o'clock, biopsy: Benign breast tissue with focal stromal fibrosis; no atypia or malignancy identified. See comment. Comment: The findings may not account for the mass; please correlate with clinical and imaging findings. Clinical History Left breast 1 o'clock mass Microscopic Description Microscopic sections reviewed. Material Received Time in formalin 1006 left breast 1 o'clock mass Gross Description Received in formalin labeled left breast 1 o'clock are 6 cylindrical fragments of white and yellow-white fibrofatty breast tissue mixed with clotted blood measuring 0.5-1.2 cm in length, all with a diameter of 0.2 cm which are wrapped in lens paper and entirely submitted for microscopic examination, 6 pieces in cassette A. ([facility]) This case was reviewed intradepartmentally. IHC S/NG Disclaimer NOTE: Unless otherwise stated, all tissue is formalin-fixed and paraffin-embedded. Some or all of the immunohistochemical tests reported herein may have been developed and their performance characteristics determined by [facility]. They have not been cleared or approved by the U.S. Food and Drug Administration (FDA). However, the FDA has determined that such clearance or approval is not necessary. This laboratory is certified under the Clinical Laboratory Improvement Amendments of 1988 (CLIA) as qualified to perform high complexity clinical laboratory testing. CONTINUED ON NEXT PAGE ----- ------- Name: Laisha Ye I Age/Sex: 54/F : 1970 Unit#: [id number] Attend Dr: Michael Kinsey MD Re06/03/25 Status: DEP [facility] Disch: ----- ------- SPEC : [id number] RECD: 06/03/25 STATUS: [facility] NUM: [id number] MO: 06/03/25-[address] [facility] [address]: Robi Humphreys MD ENTERED: 06/03/25 SP TYPE: Surgical OTHR DR: Olamide Chandler MD, John J MD ORDERED: HE Stain/2, Gross Micro L4 COMMENTS: As stated on the accompanying specimen requisition: Time in formalin 1006 Copies To: Olamide Chandler MD [facility] [address] [place] [address] Robi Humphreys MD [address] [place] [address] Michael Kinsey MD [facility] [address] [place] [phone] ----- ------- Signed (signature on file) Seth Smith MD 06/05/25 4003 ----- ------- END OF REPORT us Generic External Data Provider LAB BLOOD ORDERAB LES Final Result [facility] [address] [place] [address] [phone] * BI Mammogram Diagnostic Tomosynthesis Left (06/03/2025 10:24 AM EST) Only the most recent of2 resultswithin the time period is included. Anatomical Region Laterality Modality Breast Left Mammography 06/03/2025 10:2 4 AM EST Narrative 06/03/2025 11:16 AM EST [facility] [address] [place] [address] Mammography Report Signed with Addenda Patient: Laisha Ye I MR#: M [id number] : 1970 Acct:[id number] Age/Sex: 54 / F ADM Date: 06/03/25 Loc: [facility] Attending Dr: Michael Kinsey MD Ordering Physician: Michael Kinsey MD Results: 3Prob ably Benign Date of Service: 06/03/25 Follow Up: 6 Month F/U Procedure(s): MM tomosynthesis diagnostic LT Accession Number(s): [id number] cc: Olamide Chandler MD; Michael Kinsey MD Reason For Exam: post us bx ADDENDUM ADDENDUM #1 ADDENDUM: Pathology results are available as follows: Benign breast tissue with focal stromal fibrosis; no atypia or malignancy identified. Findings are benign and concordant with the sonographic findings. Previous examinations were again reviewed. On the last mammogram/ultrasound from May 22, 2025, the focal asymmetry in the upper outer quadrant anterior depth of the left breast was interpreted as similar appearance to the priors. The possible ultrasound correlate at 1 o'clock position at 1 cm from the nipple measured 0.8 x 0.4 x 0.7 cm (with prior measurements of 0.7 x 0.5 x 0.3 cm in October 2024). Optimal positioning could not be obtained for the post procedure mammograms due to overlying bandage. Therefore, it is difficult to determine if the location of the biopsy clip correlates with the initial mammographic finding. Given the fact that the mammographic finding was stable for at least six months, continued short-term follow-up mammogram is recommended. Recommendation: Bilateral diagnostic mammogram expected in September 2025. OVERALL ASSESSMENT: Category 3: Probably benign RECOMMENDATION: 6 Month F/U Electronically signed by: Robi Humphreys MD 06/05/2025 04:44 PM EST Addendum Dictated By: Robi Humphreys MD Addendum Signed By: <Electronically signed by Robi Humphreys MD in OV> 06/05/25 1644 Addendum Cosigned By: DD/ TD/TT: 06/03/25 EXAMINATION/PROCEDURE: 1. ULTRASOUND GUIDED CORE BIOPSY BREAST, LEFT 2. POST PROCEDURE DIGITAL MAMMOGRAM, LEFT CLINICAL INFORMATION: -Patient is status post diagnostic mammogram/ultrasound workup on May 22, 2025 that recommended on ultrasound-guided needle core biopsy of the heterogeneous hyperechoic mass seen on the ultrasound at 1 o'clock position at 1 cm from the nipple measuring 0.8 x 0.4 x 0.7 cm. Prior measurements in October 2024 ultrasound were 0.6 x 0 3 x 0.5 cm. Patient has history of reduction mammoplasty approximately 2017. -Screening mammogram on October 04, 2024 describes focal asymmetry in the upper outer quadrant anterior depth. COMPARISON: Screening mammogram on October 04, 2024. Diagnostic mammogram/ultrasound workup on November 08, 2024. Diagnostic mammogram/ultrasound workup on May 22, 2025. FINDINGS: Proper informed consent is obtained from the patient after discussion of the procedure, potential risks and complications, and alternatives. Patient was given an opportunity for questions. The patient appeared to understand. The patient consented to the procedure and signed the consent form. GUIDANCE: Ultrasound-guided; aseptic technique. LESION: Heterogeneous hyperechoic solid mass at 1 o'clock position at 1 cm from the nipple.. APPROACH: Lateral. ANESTHESIA: 7 cc of lidocaine 1% buffered with Sodium Bicarbonate 8.4% (9ml:1ml ratio). NEEDLE: 14-gauge Bard Marquee biopsy device with co-axial introducer. CORES: 4. CLIP: HydroMARK; shape: open coil. The needle was then removed and adequate hemostasis was achieved. Estimated blood loss: Minimal POST PROCEDURE UNILATERAL DIGITAL MAMMOGRAM: The post biopsy mammogram is performed in separate room using separate digital mammography equipment from the biopsy procedure. Full field ML 90 degrees, MLO and CC views are obtained. Note that CC view was obtained with tomosynthesis. The bandage was covering the nipple, therefore, positioning was not optimal on the post procedure mammograms. The biopsy clip does not appear to correlate with the mammographic finding described on the screening mammogram. No gross hematoma. The patient tolerated the procedure well. No immediate complications. Home instructions reviewed with the patient. Final pathology results are pending. MM/MM tomosynthesis diagnostic LT IMPRESSION: 1. Status post ultrasound-guided core biopsy left breast heterogeneous hyperechoic mass at 1 o'clock position at 1 cm from the nipple. 2. Clip placed: HydroMARK; shape: open coil. Location of the clip does not appear to correlate with the initial mammographic finding. 3. Pathology pending. An addendum report will be issued in regards to the next management/follow-up. ASSESSMENT: Post Procedure Mammograms for Marker Placement RECOMMENDATION: Awaiting Pathology Results Electronically signed by: Robi Humphreys MD 06/03/2025 11:13 AM EST Dictated By: Robi Humphreys MD Signed By: <Electronically signed by Robi Humphreys MD in OV> 06/03/25 1113 DD/ 1024 TD/TT: 06/03/25 1024 [employer]: Procedure Note Donotuseinterpreter, Image - 06/05/2025 [facility] [address] [place] [address] [place] [address] Mammography Report Signed with Addenda Patient: Laisha Ye IMR#: M [id number] : 1970Acct:[id number] Age/Sex: 54 / FADM Date: 06/03/25 Loc: HO.MAMMO Attending Dr: Michael Kinsey MD Ordering Physician: Michael Kinsey MDResults: 3Prob ably Benign Date of Service: 06/03/25Follow Up: 6 Month F/U Procedure(s): MM tomosynthesis diagnostic LT Accession Number(s): [id number] cc: Olamide Chandler MD; Michael Kinsey MD Reason For Exam: post us bx ADDENDUM ADDENDUM #1 ADDENDUM: Pathology results are available as follows: Benign breast tissue with focal stromal fibrosis; no atypia or malignancy identified. Findings are benign and concordant with the sonographic findings. Previous examinations were again reviewed. On the last mammogram/ultrasound from May 22, 2025, the focal asymmetry in the upper outer quadrant anterior depth of the left breast was interpreted as similar appearance to the priors. The possible ultrasound correlate at 1 o'clock position at 1 cm from the nipple measured 0.8 x 0.4 x 0.7 cm (with prior measurements of 0.7 x 0.5 x 0.3 cm in October 2024). Optimal positioning could not be obtained for the post procedure mammograms due to overlying bandage. Therefore, it is difficult to determine if the location of the biopsy clip correlates with the initial mammographic finding. Given the fact that the mammographic finding was stable for at least six months, continued short-term follow-up mammogram is recommended. Recommendation: Bilateral diagnostic mammogram expected in September 2025. OVERALL ASSESSMENT: Category 3: Probably benign RECOMMENDATION: 6 Month F/U Electronically signed by: Robi Humphreys MD 06/05/2025 04:44 PM [facility] Addendum Dictated By: Robi Humphreys MD Addendum Signed By: <Electronically signed by MD Jorge in OV> 06/05/25 1644 Addendum Cosigned By: DD/ TD/TT: 06/03/25 EXAMINATION/PROCEDURE: 1. ULTRASOUND GUIDED CORE BIOPSY BREAST, LEFT 2. POST PROCEDURE DIGITAL MAMMOGRAM, LEFT CLINICAL INFORMATION: -Patient is status post diagnostic mammogram/ultrasound workup on May 22, 2025 that recommended on ultrasound-guided needle core biopsy of the heterogeneous hyperechoic mass seen on the ultrasound at 1 o'clock position at 1 cm from the nipple measuring 0.8 x 0.4 x 0.7 cm. Prior measurements in October 2024 ultrasound were 0.6 x 0 3 x 0.5 cm. Patient has history of reduction mammoplasty approximately 2017. -Screening mammogram on October 04, 2024 describes focal asymmetry in the upper outer quadrant anterior depth. COMPARISON: Screening mammogram on October 04, 2024. Diagnostic mammogram/ultrasound workup on November 08, 2024. Diagnostic mammogram/ultrasound workup on May 22, 2025. FINDINGS: Proper informed consent is obtained from the patient after discussion of the procedure, potential risks and complications, and alternatives. Patient was given an opportunity for questions. The patient appeared to understand. The patient consented to the procedure and signed the consent form. GUIDANCE: Ultrasound-guided; aseptic technique. LESION: Heterogeneous hyperechoic solid mass at 1 o'clock position at 1 cm from the nipple.. APPROACH: Lateral. ANESTHESIA: 7 cc of lidocaine 1% buffered with Sodium Bicarbonate 8.4% (9ml:1ml ratio). NEEDLE: 14-gauge Bard Marquee biopsy device with co-axial introducer. CORES: 4. CLIP: HydroMARK; shape: open coil. The needle was then removed and adequate hemostasis was achieved. Estimated blood loss: Minimal POST PROCEDURE UNILATERAL DIGITAL MAMMOGRAM: The post biopsy mammogram is performed in separate room using separate digital mammography equipment from the biopsy procedure. Full field ML 90 degrees, MLO and CC views are obtained. Note that CC view was obtained with tomosynthesis. The bandage was covering the nipple, therefore, positioning was not optimal on the post procedure mammograms. The biopsy clip does not appear to correlate with the mammographic finding described on the screening mammogram. No gross hematoma. The patient tolerated the procedure well. No immediate complications. Home instructions reviewed with the patient. Final pathology results are pending. MM/MM tomosynthesis diagnostic LT IMPRESSION: 1. Status post ultrasound-guided core biopsy left breast heterogeneous hyperechoic mass at 1 o'clock position at 1 cm from the nipple. 2. Clip placed: HydroMARK; shape: open coil. Location of the clip does not appear to correlate with the initial mammographic finding. 3. Pathology pending. An addendum report will be issued in regards to the next management/follow-up. ASSESSMENT: Post Procedure Mammograms for Marker Placement RECOMMENDATION: Awaiting Pathology Results Electronically signed by: Robi Humphreys MD 06/03/2025 11:13 AM EST RP Dictated By: Robi Humphreys MD Signed By: <Electronically signed by Robi Humphreys MD in OV> 06/03/25 1113 DD/ 1024 TD/TT: 06/03/25 1024 [employer]: us [facility] External Provider IMG BI PROCEDURES Edited Result - Final * BI US Breast Limited Left (05/22/2025 3:01 PM EST) Anatomical Region Laterality Modality Breast Left Ultrasound 05/22/2025 3:01 PM EST Narrative 05/23/2025 9:18 AM EST [facility] [place] [address] Ultrasound Report Signed Patient: Laisha Ye I MR#: M [id number] : 1970 Acct:[id number] Age/Sex: 54 / F ADM Date: 05/22/25 Loc: HO.MAMMO Attending Dr: Olamide Stevens MD Ordering Physician: Olamide Chandler MD Date of Service: 05/22/25 Procedure(s): US Breast LT Limited Mamm Only Accession Number(s): [id number] cc: Olamide Chandler MD Reason for Exam: [...] 05/23/25 0916 DD/ 1501 TD/TT: 05/22/25 1530 [employer]: Procedure Note Donotuseinterpreter, Image - 05/23/2025 [facility] [address] [place], [place] [address] Ultrasound Report Signed Patient: Laisha Ye [facility]#: M [id number] : 1970Acct:[id number] Age/Sex: 54 / FADM Date: 05/22/25 Loc: HO.MAMMO Attending Dr: Olamide Stevens MD Ordering Physician: Olamide Chandler MD Date of Service: 05/22/25 Procedure(s): US Breast LT Limited Mamm Only Accession Number(s): [id number] cc: Olamide Chandler MD Reason for Exam: [...] 05/23/25 0916 DD/ 1501 TD/TT: 05/22/25 1530 [employer]: us Olamide Stevens MD IMG US PROCEDURES Harish johanna Result - Final * XR Hip 2 or 3 Views Right (04/18/2025 10:12 AM EDT) Anatomical Region Laterality Modality Lower Extremities, Hip Right Radiograp hic Imaging 04/18/2025 10:1 2 AM EDT Narrative 04/18/2025 10:24 AM EDT [place] [address] XRay Report Signed Patient: Laisha Ye I MR#: M [id number] : 1970 Acct:[id number] Age/Sex: 54 / F ADM Date: 04/18/25 Loc: HO.LIZAY Attending Dr: Olamide Stevens MD Ordering Physician: Olamide Chandler MD Date of Service: 04/18/25 Procedure(s): XR hip RT min 2V Accession Number(s): [id number] cc: Olamide Chandler MD Reason for Exam: [...] 04/18/25 1020 DD/ 1012 TD/TT: 04/18/25 1015 [employer]: Procedure Note Donotuseinterpreter, Image - 04/18/[address] [address] XRay Report Signed Patient: Laisha Ye IMR#: M [id number] : 1970Acct:[id number] Age/Sex: 54 / FADM Date: 04/18/25 Loc: HO.XRAY Attending Dr: Olamide Stevens MD Ordering Physician: Olamide Chandler MD Date of Service: 04/18/25 Procedure(s): XR hip RT min 2V Accession Number(s): [id number] cc: Olamide Chandler MD Reason for Exam: [...] 04/18/25 1020 DD/ 1012 TD/TT: 04/18/25 1015 [employer]: us Olamide Stevens MD IMG XR PROCEDURES Harish johanna Result - Final * Culture, Urine, Routine (04/02/2025 7:56 AM EDT) Urine Urine specimen obtained by clean catch procedure / Unknown 04/02/2025 7:56 AM EDT 04/02/2025 5:24 PM EDT Comment:UACC Narrative [facility] - 04/04/2025 10:19 AM EDT Urine Culture Report Result Urine Culture 10,000 to 50,000 cfu/ml Urine Culture Mixed bacterial marge characteristic of Urine Culture urogenital contamination. Specimen Source: Urine clean catch us Generic External Data Provider LAB MICROBIOLOGY - GENERAL ORDERABLES Final Result Performing Organization Address [facility]/ZIP Co de Phone Number [facility] [address] [place] [phone] * Hemoglobin A1c (02/19/2025 12:31 PM EDT) Hemoglobin A1c 5.4 <6.0 % [facility] Comment:Hemoglobin A1C Refer ence Range Adults: 4.8 - 6.0 % Non diabetic: < 6.0 % Goal: < 7.0 %Additional Action Suggested: > 8.0 %Note: Hemoglobin A1c results are invalid for patients with abnormal amounts of HbF. Blood transfusions may impact the HbA1c concentration in the patient sample. Estimated Average Glucose 108 mg/dL [facility] Comment:eAG = Estimated ave rage glucose which is %A1C expressed asaverage glucose, using the formula of the E9K-YaupkuxIddmvxa Glucose study (ADAG), Diabetes Care, Vol.31,#8,Jan. 2007 Blood Venous blood specimen / Unknown 02/19/2025 12:31 PM EDT 02/19/2025 4:10 PM EDT us Olamide Stevens MD LAB BLOOD ORDERABLES Final Result Performing Organization Address [facility]/ZIP Co de Phone Number [facility] [address] [place] [phone] * (ABNORMAL) Lipid Panel with Reflex to Direct LDL (03/29/2024 9:50 AM EDT) Triglycerides 89 <150 mg/dL [facility] Comment:Desirable Triglyceri de: less than 150 mg/dLBorderline High Triglyceride 150-199 mg/dLHigh Triglyceride: 200-499 mg/dLVery High Triglyceride: greater than or equal to 5OO mg/dL Cholesterol 168 <200 mg/dL [facility] Comment:Desirable Cholestero l: less than 200 mg/dLBorderline High Cholesterol: 200-239 mg/dLHigh Cholesterol: greater than 239 mg/dL LDL Cholesterol Calculated 107(H) <100 mg/dL [facility] Comment:Desirable LDL: less than 100 mg/dLNear Optimal/Above Optimal LDL: 110- 129 mg/dLBorderline High LDL: 130-159 mg/dLHigh LDL: 160-189 mg/dLVery High LDL: greater than or equal to 190 mg/dL HDL Cholesterol 44 >40 mg/dL [facility] Comment:Desirable HDL: great er than 40 mg/dL Note: This HDL assay may give artificially low results in patients with liver disease. Blood 03/29/2024 9:50 AM EDT 03/29/2024 11:08 AM EDT us Olamide Stevens MD LAB BLOOD ORDERABLES Final Result [facility] [address] [place] [phone] * Image-Guided Pap with Age-Based Screening??with CT/NG,??Trichomonas (10/29/2022 11:29 AM EDT) Comment [employer] Comment: This order for age-based cervical cancer and STI screening follows ACOG guidelines(PB 168, 140, BKQ925). See individual assays for performing site location. Clinical Information: 52 Y/O F NO PREVIOUS ABNORMALITY C [employer] [facility] LMP: NONE GIVEN [employer] Prev. PAP: NONE GIVEN [employer] Prev. BX: NONE GIVEN [employer] [place] [employer] SOURCE: None given [employer] [place] [employer] Statement Of Adequacy: [employer] Comment: Satisfactory for evaluation. Endocervical/transformation zone component absent. Interpretation/Re sult: Negative for intraepithelial lesion or malignancy. [employer] [place] [employer] Comment: This Pap test has been evaluated with computer assisted technology. [employer] [place] [employer] Contract Administration Coordinator: [facility] [place] [employer] Comment: EXJ, CT(ASCP) CT Screening Location: [address] [address] (Always Message) [facility] [place] [employer] Comment: EXPLANATORY NOTE: The Pap is a [...] HPV nRNA E6/E7 Not Detected Not Detected [employer] [place] [employer] Comment: Methodology: Director Industrial Relations-Mediated Amplification This assay detects E6/E7 viral messenger RNA (mRNA) from 14 high-risk HPV types (16,18,31,33,35,39,45,51,52,56,58,59,66,68). Cervical sources are required for HPV testing. If a vaginal source from a patient who has had a total hysterectomy with removal of cervix was submitted, please contact the testing laboratory for alternative testing options. For additional information, please refer to http://education.[employer]/faq/SAD051l3 (This link if provided for information/ educational purposes only.) Chlamydia trachomatis RNA, TMA, Urogenital NOT DETECTED NOT DETECTED [employer] [place] [employer] Neisseria gonorrhoeae RNA, TMA, Urogenital NOT DETECTED NOT DETECTED [employer] Comment [employer] Comment: The analytical performance characteristics of this assay, when used to test SurePath(TM) specimens have been determined by [employer]. The modifications have not been cleared or approved by the FDA. This assay has been validated pursuant to the CLIA regulations and is used for clinical purposes. For additional information, please refer to https://WellGen.[employer]/faq/MJP680 (This link is being provided for information/ educational purposes only.) Trichomonas vaginalis, QL, TMA, PAP Vial NOT DETECTED NOT DETECTED [employer] Comment: The analytical performance characteristics of this assay have been determined by [employer]. The modifications have not been cleared or approved by the FDA. This assay has been validated pursuant to the CLIA regulations and is used for clinical purposes. For additional information, please refer to http://WellGen.[employer]/ faq/Trichomonastma (This link is being provided for information/ educational purposes only.) Pap Vial 10/29/2022 11:2 9 AM EDT 10/31/2022 4:55 PM EDT Olamide Stevens MD LAB CYTOLOGY ORDERABL ES Final Result [facility] [address], [place] [address] [employer] [place] [employer] [address] [place] [address] * Hm Colonoscopy (04/12/2022 10:07 PM EDT) Historical Provider HEALTH MAINTENANCE Final Result from Last 3 Months or Most Recently Relevant to Health Maintenance Insurance [address] [place] [phone] FORMERLY [facility] ONE CARE < 65 NADIR WALKER [phone] Care Teams Laboratory Coordinator Relationship Specialty Start Date End Date Olamide Chandler MD [address] [place] [phone] PCP - General Family Medicine 07/28/20
--- OUTSIDE RECORDS SUMMARY | 2025-06-10 09:01 | XMS_ITS | Encounter Summary ---
Author Organization [employer] Address 75 [facility] 7t [place] [address] Care Team Providers Care Diet Tech Name Role Phone Olamide Chandler MD Primary Care Provide r Encounter Details Date Type Department Care Team ([facility] Contact Info) Description 08/18/2022 Telephone [facility] MEDICINE [address] [place], [place] [phone] Olamide Chandler MD 230 [place], [place] [phone] Social History Tobacco Use Types Packs/Day Years [...] Description 07/12/2025 11:15 AM EST Office Visit [facility] MEDICINE 230 [place] [address] Brittney Graham MD 230 [place] [address] documented as of this encounter Visit Diagnoses Not on filedocumented in this encounter Care Teams Diet Tech Relationship Specialty Start Date End Date Olamide Chandler MD 230 [place] [address] PCP - General Family Medicine 07/28/20 documented as of this encounter
--- OUTSIDE RECORDS SUMMARY | 2025-06-10 09:01 | XMS_ITS | Encounter Summary ---
Author Organization [employer] Address 75 [facility] 7 [place] [address] Care Team Providers Care Supervisor Marble Name Role Phone Olamide Chandler MD Primary Care Provide r Reason for Visit * Reason Onset Date Comments Med Refill 01/07/2025 Encounter Details Date Type Department Care Team ([facility] st Contact Info) Description 01/07/[address] [facility] MEDICINE 230 [place], [place] [phone] Olamide Chandler MD 230 [place], [place] [phone] Med Refill Social History Tobacco Use Types [...] MG/0.5ML solution auto-injector [facility] be sent [facility]: [id number] - [place], [place] - [address] [place] [address] AT [facility] documented in this encounter Plan of Treatment Upcoming Encounters Date Type Department Care Team ([facility] st Contact Info) Description 07/12/2025 11:15 AM EST Office Visit [facility] MEDICINE [address] [place] [address] Brittney Graham MD 230 [place] [address] documented as of this encounter Visit Diagnoses Diagnosis Class 3 severe obesity due to excess calories with serious comorbidity and body mass index (BMI) of 45.0 to 49.9 in adult (HCC) documented in this encounter Additional Health Concerns Assessment Noted Time PHQ-9 Depression Total Score: 25 024 9:17 AM EDT documented as of this encounter Care Teams Supervisor Marble Relationship Specialty Start Date End Date Olamide Chandler MD 230 [place] [address] PCP - General Family Medicine 07/28/20 documented as of this encounter
--- OUTSIDE RECORDS SUMMARY | 2025-06-10 09:01 | XMS_ITS | Clinical Summary ---
Author Organization [facility], Address [address] [place] [address] [place] [address] Phone Care Team Providers Care Staff Assistant Name Role Phone Olamide Chandler MD [...] 4 Contact dermatitis caused by urushiol from [employer] poison james 12/28/2023 Bilateral lower leg edema [...] Visit [facility] [address] [place] [address] Mahendra Medel, [address] [place] [phone] Health Maintenance Due Date Last Done Comments [...] (6 to 49 Years) Discontinued 10/28/2023 Insurance [facility] One Care Dual SNP ([id number]) NADIR WALKER [phone] Care Teams Staff Assistant Relationship Specialty Start Date End Date Olamide Chandler MD [address] [place] [address] [place] [phone] PCP - General Internal Medicine 10/27/23
--- OUTSIDE RECORDS SUMMARY | 2025-06-10 09:01 | XMS_ITS | Encounter Summary ---
Author Organization [employer] Address 75 [facility] 7t [place] [address] Care Team Providers Care Tour Coordinator Name Role Phone Olamide Chandler MD Primary Care Provide r Encounter Details Date Type Department Care Team (Late st Contact Info) Description 06/03/2025 Orders Only GENERIC EXTERNAL DATA DEPARTMENT Provider, Generic External Data Social History Tobacco Use Types Packs/Day Years [...] EST Office Visit [facility] MEDICINE [address] [place] [address] [phone] Brittney Graham MD 230 [place] [address] documented as of this encounter Procedures Procedure Name Priority Date/Time Associated Diagnosis Comments HEMATOXYLIN AND EOSIN STAIN Routine 06/03/2025 11:03 AM EST documented in this encounter Results * Hematoxylin and Eosin Stain (06/03/2025 11:03 AM EST) 06/03/2025 11:0 3 AM EST 06/03/2025 12:19 PM EST [facility] - 06/05/2025 1:50 PM EST ----- ------- Name: Laisha Ye I Age/Sex: 54/F : 1970 Unit#: [id number] Attend Dr: Michael Kinsey MD Re06/03/25 Status: [facility] REF Location: [facility] Disch: ----- ------- SPEC : [id number] RECD: 06/03/25-1218 STATUS: TERRI PLUNKETT NUM: [id number] MO: 06/03/[address] [facility] [address]: Robi Humphreys MD ENTERED: 06/03/25 [...] microscopic examination, 6 pieces in cassette A. ([facility]) This case was reviewed intradepartmentally. IHC S/NG Disclaimer NOTE: Unless otherwise stated, all tissue is formalin-fixed and paraffin-embedded. Some or all of the immunohistochemical tests reported herein may have been developed and their performance characteristics determined by [facility]. They have not been cleared [...] Ye I Age/Sex: 54/F : 1970 Unit#: [id number] Attend Dr: Michael Kinsey MD Re06/03/25 Status: [facility]P [facility] Disch: ----- ------- SPEC : [id number] RECD: 06/03/25 STATUS: TERRI PLUNKETT NUM: [id number] MO: 06/03/25-[address] [facility] [address]: Robi Humphreys MD ENTERED: 06/03/25-1223 SP TYPE: Surgical OTHR DR: Olamide Chandler MD, John J MD ORDERED: HE Stain/2, Gross Micro L4 COMMENTS: As stated on the accompanying specimen requisition: Time in formalin 1006 Copies To: Olamide Chandler MD [facility] [address] [place], [place] [phone] Robi Humphreys MD [address] [place], [place] [phone] Michael Kinsey MD [facility] [address] [place] [address] [phone] ----- ------- Signed (signature on file) Seth Smith MD 06/05/25 1350 ----- ------- END OF REPORT us Generic External Data Provider LAB BLOOD ORDERAB LES Final Result [facility] [address] [place] [phone] documented in this encounter Visit Diagnoses Not on filedocumented in this encounter Additional Health Concerns Assessment Noted Time PHQ-9 Depression Total Score: 23 025 11:29 AM EDT documented as of this encounter Care Teams Tour Coordinator Relationship Specialty Start Date End Date Olamide Chandler MD 230 [place] [address] PCP - General Family Medicine 07/28/20 documented as of this encounter
--- OUTSIDE RECORDS SUMMARY | 2025-06-10 09:01 | XMS_ITS | Encounter Summary ---
Author Organization [employer] Address 75 [facility] 7t [place] [address] Care Team Providers Care Heavy Mobile Equipment Operator Name Role Phone Olamide Chandler MD Primary Care Provide r Encounter Details Date Type Department Care Team ([facility] st Contact Info) Description 03/07/[address] [facility] MEDICINE 230 [place], [place] [phone] Olamide Chandler MD 230 [place], [place] [phone] Social History Tobacco Use Types Packs/Day Years [...] AM EST Office Visit [facility] MEDICINE 230 [place] [address] Brittney Graham MD [address] [place] [address] documented as of this encounter Visit Diagnoses Not on filedocumented in this encounter Additional Health Concerns Assessment Noted Time PHQ-9 Depression Total Score: 25 024 9:17 AM EDT documented as of this encounter Care Teams Heavy Mobile Equipment Operator Relationship Specialty Start Date End Date Olamide Chandler MD [address] [place] [address] PCP - General Family Medicine 07/28/20 documented as of this encounter
--- OUTSIDE RECORDS SUMMARY | 2025-06-10 09:01 | XMS_ITS | Clinical Summary ---
Author Organization [facility] Address [address] [place] [address] Phone Care Team Providers Care Direct Marketing Representative Name Role Phone Unavailable Primary Care Provider [...]
--- OUTSIDE RECORDS SUMMARY | 2025-06-10 09:01 | XMS_ITS | Encounter Summary ---
Author Organization [employer] Address 75 [facility] 7t [place] [address] Care Team Providers Care Direct Response Consultant Name Role Phone Olamide Chandler MD Primary Care Provide r Reason for Visit * Reason Comments Med Refill Encounter Details Date Type Department Care Team (Late st Contact Info) Description 11/27/2024 Refill [facility] MEDICINE 230 [place], [place] [phone] Olamide Chandler MD 230 [place], [place] [phone] Class 3 severe obesity due to excess [...] Description 07/12/2025 11:15 AM EST Office Visit [facility] MEDICINE [address] [place] [phone] Brittney Graham MD 230 [place] [address] documented as of this encounter Visit Diagnoses Diagnosis Class 3 severe obesity due to excess calories with serious comorbidity and body mass index (BMI) of 45.0 to 49.9 in adult (HCC) documented in this encounter Additional Health Concerns Assessment Noted Time PHQ-9 Depression Total Score: 25 024 9:17 AM EDT documented as of this encounter Care Teams Direct Response Consultant Relationship Specialty Start Date End Date Olamide Chandler MD [address] [place] [address] PCP - General Family Medicine 07/28/20 documented as of this encounter
--- OUTSIDE RECORDS SUMMARY | 2025-06-10 09:01 | XMS_ITS | Encounter Summary ---
Author Organization [employer] Address 75 [facility] 7t [place] [address] Care Team Providers Care Production Line Manager Name Role Phone Olamide Chandler MD Primary Care Provide r Encounter Details Date Type Department Care Team ([facility] st Contact Info) Description 08/09/2024 Orders Only [facility] MEDICINE 230 [place], [place] [phone] Olamide Chandler MD 230 [place], [place] [phone] Social History Tobacco Use Types Packs/Day Years [...] Description 07/12/2025 11:15 AM EST Office Visit [facility] MEDICINE [address] [place] [address] Brittney Graham MD [address] [place] [address] documented as of this encounter Visit Diagnoses Not on filedocumented in this encounter Additional Health Concerns Assessment Noted Time PHQ-9 Depression Total Score: 25 024 9:17 AM EDT documented as of this encounter Care Teams Production Line Manager Relationship Specialty Start Date End Date Olamide Chandler MD [address] [place] [address] PCP - General Family Medicine 07/28/20 documented as of this encounter
--- OUTSIDE RECORDS SUMMARY | 2025-06-10 09:01 | XMS_ITS | Encounter Summary ---
Author Organization [employer] Address 75 [facility] 7t [place] [address] Care Team Providers Care Teacher Dancing Name Role Phone Olamide Chandler MD Primary Care Provide r Encounter Details Date Type Department Care Team ([facility] st Contact Info) Description 12/04/2024 Orders Only [facility] MEDICINE 230 [place], [place] [phone] Olamide Chandler MD [address] [place], [place] [phone] Social History Tobacco Use Types Packs/Day Years [...] Visit [facility] MEDICINE [address] [place] [address] Brittney Graham MD [address] [place] [address] documented as of this encounter Visit Diagnoses Not on filedocumented in this encounter Additional Health Concerns Assessment Noted Time PHQ-9 Depression Total Score: 25 024 9:17 AM EDT documented as of this encounter Care Teams Teacher Dancing Relationship Specialty Start Date End Date Olamide Chandler MD [address] [place] [address] PCP - General Family Medicine 07/28/20 documented as of this encounter
--- OUTSIDE RECORDS SUMMARY | 2025-06-10 09:01 | XMS_ITS | Encounter Summary ---
Author Organization [facility] Address [address] [place] [address] Phone Care Team Providers Care Store Person Name Role Phone Olamide Chandler MD Primary Care Provide r Encounter Details Date Type Department Care Team (Late st Contact Info) Description 12/31/2024 Documentation Only [facility] [address] [place] [address] Mahendra Medel DO [address] [facility] [place] [address] Social History Tobacco Use Types [...] Visit [facility] [address] [place] [address] Mahendra Medel DO [address] [facility] [place] [address] documented as of this encounter [...] Creatinine, Ur 40.8 Not Estab. mg/dL [facility] Albumin, Urine <3.0 Not Estab. ug/mL [facility] Albumin/Creatin ine Ratio <7 0 - 29 mg/g creat [facility] Comment: Normal: 0 - 29 Moderately increased: 30 - 300 Severely increased: >300 Urine Urine specimen obtained by clean catch procedure / Unknown 01/01/2025 9:37 AM EDT 01/01/2025 us Mahendra Medel DO LAB URINE ORDERABLES Final Resu lt [facility] [address] [place] [address] * (ABNORMAL) Renal function panel (01/01/2025 9:37 AM EDT) Glucose 105(H) 70 - 99 mg/dL [facility] BUN 10 6 - 24 mg/dL [facility] Creatinine 0.82 0.57 - 1.00 mg/dL [facility] eGFR CKD-EPI CR 2020 85 >59 mL/min/1.7 3 [facility] BUN/Creatinine Ratio 12 9 - 23 [facility] Sodium 138 134 - 144 mmol/L [facility] Potassium 4.4 3.5 - 5.2 mmol/L [facility] Chloride 101 96 - 106 mmol/L [facility] Bicarbonate (CO2) 22 20 - 29 mmol/L [facility] Calcium 9.1 8.7 - 10.2 mg/dL [facility] Albumin 4.1 3.8 - 4.9 g/dL [facility] Phosphorus 3.1 3.0 - 4.3 mg/dL [facility] Blood Venous blood / Unknown 01/01/2025 9:37 AM EDT 01/01/2025 us Mahendra Medel DO LAB BLOOD ORDERABLES Final Resu lt [facility] [address] [place] [address] documented in this encounter Visit Diagnoses Diagnosis Chronic kidney disease, stage 2 (mild)- 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
--- OUTSIDE RECORDS SUMMARY | 2025-06-10 09:01 | XMS_ITS | Encounter Summary ---
Author Organization [employer] Address [address] [facility] 7 [place] [address] Care Team Providers Care Clothes Model Name Role Phone Olamide Chandler MD Primary Care Provide r Reason for Visit * Reason Onset Date Comments Med Refill 12/04/2024 Encounter Details Date Type Department Care Team ([facility] st Contact Info) Description 12/04/2024 Telephone [facility] MEDICINE 230 [place], [place] [phone] Olamide Chandler MD 230 [place], [place] [phone] Med Refill Social History Tobacco Use Types [...] Please review and resubmit Contact pt at [phone] Need magnetic healer * Telephone Encounter - Bea Escobar LPN - 12/04/2024 2:48 PM EDT Medication was sent to [id number] today. * Telephone Encounter - Joselyn Boyer - 12/04/2024 2:46 PM EDT TC from pt requesting medication refill. Medications needing refill : Zepbound 2.5 MG/0.5ML solution auto-injector To be sent to: [id number] - [place] [address] [facility] signed by Joselyn Boyer at 12/04/2024 2:46 PM EDT documented in this encounter Plan of Treatment Upcoming Encounters Date Type Department Care Team (Late st Contact Info) Description 07/12/2025 11:15 AM EST Office Visit [facility] MEDICINE [address] [place] [address] Brittney Graham MD [address] [place], [place] [phone] documented as of this encounter Visit Diagnoses Not on filedocumented in this encounter Additional Health Concerns Assessment Noted Time PHQ-9 Depression Total Score: 25 024 9:17 AM EDT documented as of this encounter Care Teams Clothes Model Relationship Specialty Start Date End Date Olamide Chandler MD [address] [place] [address] [phone] PCP - General Family Medicine 07/28/20 documented as of this encounter
--- OUTSIDE RECORDS SUMMARY | 2025-06-10 09:01 | XMS_ITS | Encounter Summary ---
Author Organization [employer] Address 75 [facility] 7 [place] [address] Care Team Providers Care Environmental Law Professor Name Role Phone Olamide Chandler MD Primary Care Provide r Reason for Visit * Reason Onset Date Comments Pre-visit Planning 03/02/2024 Encounter Details Date Type Department Care Team ([facility] st Contact Info) Description 03/02/2024 Telephone [facility] MEDICINE [address] [place], [place] [phone] Olamide Chandler MD [address] [place], [place] [phone] Pre-visit Planning Social History Tobacco Use Types [...] EST Office Visit [facility] MEDICINE [address] [place] [address] Brittney Graham MD [address] [place] [address] documented as of this encounter Visit Diagnoses Not on filedocumented in this encounter Additional Health Concerns Assessment Noted Time PHQ-9 Depression Total Score: 18 024 9:06 AM EST documented as of this encounter Care Teams Environmental Law Professor Relationship Specialty Start Date End Date Olamide Chandler MD [address] [place] [phone] PCP - General Family Medicine 07/28/20 documented as of this encounter
--- OUTSIDE RECORDS SUMMARY | 2025-06-10 09:01 | XMS_ITS | Encounter Summary ---
Author Organization [facility] Address [address] [facility] 7t [place] [address] Care Team Providers Care Film Waxer Name Role Phone Olamide Chandler MD Primary Care Provide r Encounter Details Date Type Department Care Team (Late st Contact Info) Description 10/19/2024 Orders Only [facility] [address] [place] [address] Provider, MD Maurisio Social History Tobacco Use [...] 07/12/2025 11:15 AM EST Office Visit [facility] [address] [place] [address] Brittney Graham MD [address] [place], [place] [phone] documented as of this encounter Procedures Procedure [...] AM EDT Narrative 11/14/2024 3:08 PM EDT [facility] [address] [place] [address] Ultrasound Report Signed Patient: Laisha Ye I MR#: M [id number] : 1970 Acct:[id number] Age/Sex: 54 / F ADM Date: 11/14/24 Loc: HO.MAMMO Attending Dr: Olamide Stevens MD Ordering Physician: Olamide Chandler MD Date of Service: 11/14/24 Procedure(s): US breast LT limited mamm only Accession Number(s): [id number] cc: Olamide Chandler MD EXAMINATION: MM DIAGNOSTIC [...] 11/14/24 1505 DD/ 1100 TD/TT: 11/14/24 1100 Flame Cutting Machine Operator Helper: Procedure Note Donotuseinterpreter, Image - 11/14/2024 [facility] [address] [place], [place] [address] Ultrasound Report Signed Patient: Laisha Ye IMR#: M [id number] : 1970Acct:[id number] Age/Sex: 54 / FADM Date: 11/14/24 Loc: HO.MAMMO Attending Dr: Olamide Stevens MD Ordering Physician: Olamide Chandler MD Date of Service: 11/14/24 Procedure(s): US breast LT limited mamm only Accession Number(s): [id number] cc: Olamide Chandler MD EXAMINATION: MM DIAGNOSTIC [...] 11/14/24 1505 DD/ 1100 TD/TT: 11/14/24 1100 Flame Cutting Machine Operator Helper: us Olamide Stevens MD IMG US PROCEDURES Fin al Result * BI Mammogram Diagnostic Tomosynthesis added left (11/14/2024 10:30 AM EDT) Anatomical Region Laterality Modality Breast Left Mammography 11/14/2024 10:3 0 AM EDT Narrative 11/14/2024 3:08 PM EDT [facility] [address] [place] [address] Mammography Report Signed Patient: Laisha Ye I MR#: M [id number] : 1970 Acct:[id number] Age/Sex: 54 / F ADM Date: 11/14/24 Loc: HO.MAMMO Attending Dr: Olamide Stevens MD Ordering Physician: Olamide Chandler MD Results: 3.6MProbably Benign Finding - Short 6 M F/U Suggested Date of Service: 11/14/24 Follow Up: 6 Month F/U Procedure(s): MM tomosynthesis added views L Accession Number(s): [id number] cc: Olamide Chandler MD EXAMINATION: MM DIAGNOSTIC [...] 11/14/24 1505 DD/ 1030 TD/TT: 11/14/24 1100 Flame Cutting Machine Operator Helper: Procedure Note Donotuseinterpreter, Image - 11/14/2024 [facility] [address] [place] [address] [place] [address] Mammography Report Signed Patient: Laisha Ye [facility]#: M [id number] : 1970Acct:[id number] Age/Sex: 54 / FADM Date: 11/14/24 Loc: HO.MAMMO Attending Dr: Olamied Stevens MD Ordering Physician: Olamide Chandler MD Results: 3.6MProbably Benign Finding - Short 6 M F/U Suggested Date of Service: 11/14/24Follow Up: 6 Month F/U Procedure(s): MM tomosynthesis added views L Accession Number(s): [id number] cc: Olamide Chandler MD EXAMINATION: MM DIAGNOSTIC [...] 11/14/24 1505 DD/ 1030 TD/TT: 11/14/24 1100 Flame Cutting Machine Operator Helper: us Olamide Stevens MD IMG BI PROCEDURES Fin al Result * Hm Colonoscopy (04/12/2022 10:07 PM EDT) us Historical Provider HEALTH MAINTENANCE Final Result documented in this encounter Visit Diagnoses Not on filedocumented in this encounter Additional Health Concerns Assessment Noted Time PHQ-9 Depression Total Score: 024 9:17 AM EDT documented as of this encounter Care Teams Film Waxer Relationship Specialty Start Date End Date Olamide Chandler MD [address] [place] [address] PCP - General Family Medicine 07/28/20 documented as of this encounter
--- OUTSIDE RECORDS SUMMARY | 2025-06-10 09:01 | XMS_ITS | Encounter Summary ---
Author Organization [facility] Address [address] [place] [address] Phone Care Team Providers Care Database Specialist Name Role Phone Olamide Chandler MD Primary Care Provide r Encounter Details Date Type Department Care Team (Late st Contact Info) Description 01/07/2025 Documentation Only [facility] [address] [place] [address] Alisha Briceno [address] [place] [phone] Social History Tobacco Use Types Packs/Day Years [...] Visit [facility] [address] [place] [phone] Mahendra Medel DO [address] [place] [address] [place] [phone] documented as of this encounter Visit Diagnoses Not on filedocumented in this encounter Care Teams Database Specialist Relationship Specialty Start Date End Date Olamide Chandler MD [address] [place] [phone] PCP - General Internal Medicine 10/27/23 documented as of this encounter
--- OUTSIDE RECORDS SUMMARY | 2025-06-10 09:01 | XMS_ITS | Encounter Summary ---
Author Organization [employer] Address [address] [facility] 7t [place] [address] Care Team Providers Care Specimen Processor Name Role Phone Olamide Chandler MD Primary Care Provide r Reason for Visit * Reason Comments Med Refill Encounter Details Date Type Department Care Team (Late st Contact Info) Description 11/03/2024 Refill [facility] [address] [place], [place] [phone] Olamide Chandler MD [address] [place], [place] [phone] Class 3 severe obesity due to excess [...] Description 07/12/2025 11:15 AM EST Office Visit [facility] [address] [place] [phone] Brittney Graham MD [address] [place] [address] documented as of this encounter Visit Diagnoses Diagnosis Class 3 severe obesity due to excess calories with serious comorbidity and body mass index (BMI) of 45.0 to 49.9 in adult (HCC) documented in this encounter Additional Health Concerns Assessment Noted Time PHQ-9 Depression Total Score: 25 024 9:17 AM EDT documented as of this encounter Care Teams Specimen Processor Relationship Specialty Start Date End Date Olamide Chandler MD [address] [place] [phone] PCP - General Family Medicine 07/28/20 documented as of this encounter
--- OUTSIDE RECORDS SUMMARY | 2025-06-10 09:01 | XMS_ITS | Encounter Summary ---
Author Organization [employer] Address [address] [facility] 7 [place] [address] Care Team Providers Care Director Of Strategic Programs Name Role Phone Olamide Chandler MD Primary Care Provide r Reason for Visit * Reason Onset Date Comments Prior Authorization 11/28/2024 Encounter Details Date Type Department Care Team (Late st Contact Info) Description 11/28/[address] [facility]INE [address] [place], [place] [phone] Olamide Chandler MD [address] [place], [place] [phone] Prior Authorization (/) Social History Tobacco Use [...] [facility] [address] [place], [place] [phone] Brittney Graham MD [address] [place], [place] [phone] documented as of this encounter Visit Diagnoses Not on filedocumented in this encounter Additional Health Concerns Assessment Noted Time PHQ-9 Depression Total Score: 25 024 9:17 AM EDT documented as of this encounter Care Teams Director Of Strategic Programs Relationship Specialty Start Date End Date Olamide Chandler MD [address] [place] [address] PCP - General Family Medicine 07/28/20 documented as of this encounter
--- OUTSIDE RECORDS SUMMARY | 2025-06-10 09:01 | XMS_ITS | Encounter Summary ---
Author Organization [employer] Address [address] [facility] 7t [place] [address] Care Team Providers Care Employee Development Specialist Name Role Phone Olamide Chandler MD Primary Care Provide r Encounter Details Date Type Department Care Team (Late Contact Info) Description 09/01/2022 Orders Only [facility]INE [address] [place] [phone] Renée Okeefe [place] Social History Tobacco Use [...] Description 07/12/2025 11:15 AM EST Office Visit [facility] [address] [place] [phone] Brittney Graham MD [address] [place] [address] documented as of this encounter Procedures Procedure [...] (04/17/2023 1:20 AM EDT) Color Urine Yellow [facility] Appearance Urine Clear [facility] PH 6.0 5.0 - 9.0 [facility] Glucose Urine UA Negative Negative mg/dL [facility] Urine Blood Negative Negative [facility] Specific Flippin - Urine <=1.005 1.005 - 1.025 [facility] Urine Protein Negative Neg-Trace mg/dL [facility] Urine Ketones Negative Negative mg/dL [facility] Nitrite Urine Negative Negative [facility] Leukocyte Esterase Urine Trace(A) Negative [facility] RBC Urine 0-2 0 - 2 /HPF [facility] Urine WBC 0-5 0 - 5 /HPF [facility] Urine Squamous Epithelial Cell 0-2 0 - 2 /HPF [facility] Urine Bacteria None Seen None Seen [facility] Hyaline Casts, Urine 0-2 0 - 2 /LPF [facility] 04/17/2023 1:20 AM EDT 04/17/2023 1:23 AM EDT Narrative [facility] - 04/17/2023 1:42 AM EDT [id number], Clean Catch us [facility] External Provider LAB URI NE ORDERABLES Final Result Performing Organization Address [facility] [address]/ZIP Co de Phone Number [facility] [address] [place] [address] [phone] * B Type Natriuretic Peptide (BNP) (04/17/2023 12:46 AM EDT) B Type Natriuretic Peptide 44 <100 pg/mL [facility] Comment:For those patients w ho are being treated with Natrecor(nesiritide, recombinant BNP), BNP testing should beperformed at least two hours post treatment in order toensure that only endogenous levels of BNP are detected. 04/17/2023 12:4 6 AM EDT 04/17/2023 12:53 AM EDT [facility] External Provider LAB BLO OD ORDERABLES Final Result Performing Organization Address [facility] [address]/[facility] Co de Phone Number [facility] [address] [place] [address] [phone] * BI Mammogram Screening Tomosynthesis Bilateral (09/09/2022 8:30 AM EDT) Anatomical Region Laterality Modality Breast Bilateral Mammography 09/09/2022 8:30 AM EDT Narrative 09/10/2022 11:56 AM EDT [facility] [address] [place] [address] Mammography Report Signed Patient: Laisha Ye I MR#: M [id number] : 1970 Acct:[id number] Age/Sex: 51 / F ADM Date: 09/09/22 Loc: HO.MAMMO Attending Dr: Olamide Stevens MD Ordering Physician: Olamide Chandler MD Results: 1Negative Date of Service: 09/09/22 Follow Up: 1 Year From Orig inal Mammogram Procedure(s): MM tomosynthesis screening BI Accession Number(s): [id number] cc: Olamide Chandler MD EXAMINATION: MM SCREENING [...] in OV> 09/10/22 1153 DD/ 0830 TD/TT: Forklift Material Handler: SK Procedure Note Donotuseinterpreter, Image - 09/10/2022 [facility] [address] [place], [place] [address] Mammography Report Signed Patient: Laisha Ye IMR#: M [id number] : 1970Acct:[id number] Age/Sex: 51 / FADM Date: 09/09/22 Loc: HO.MAMMO Attending Dr: Olamide Stevens MD Ordering Physician: Olamide Chandler MDResults: 1Negative Date of Service: 09/09/22Follow Up: 1 Year From Orig inal Mammogram Procedure(s): MM tomosynthesis screening BI Accession Number(s): [id number] cc: Olamide Chandler MD EXAMINATION: MM SCREENING [...] in OV> 09/10/22 1153 DD/ 0830 TD/TT: Forklift Material Handler: SAURAV [facility] External Provider IMG BI PROCEDURES Edited Result - Final documented in this encounter Visit Diagnoses Not on filedocumented in this encounter Care Teams Employee Development Specialist Relationship Specialty Start Date End Date Olamide Chandler MD [address] [place] [phone] PCP - General Family Medicine 07/28/20 documented as of this encounter
== END 2025-06-10 09:10 | disposition home or self-care (01) ==
LOC: HO.HGS 08:40
PROVIDERS: PCP Internal Medicine; Visit Provider Surgery
DX: R92.8 Other abnormal and inconclusive findings on diagnostic imaging of breast (principal)
CPT/HCPCS: 99213

== ENCOUNTER → 2025-06-10 08:39 | Outpatient (BNVA) | payer OTHER, SELFPAY | PROVIDERS: PCP Internal Medicine; Visit Provider Surgery | DX: R92.8 Other abnormal and inconclusive findings on diagnostic imaging of breast (principal) | CPT/HCPCS: 99212 ==